=== PATIENT | female | born 1985 | race Caucasian/White ===

== ENCOUNTER 2018-08-03 19:05 | Inpatient (IN) | payer BC, SELFPAY ==
--- NOTE | 2018-08-03 19:48 | HP.PCM_ITS ---
- Problem List (1) Polyhydramnios affecting in third trimester Status: Acute (2) LGA (large for gestational age) fetus Status: Acute History Date of Admission: 08/03/18 Final MOY: 08/10/18 Final MOY Source: LMP Gestational age: 39 Weeks and 0 Days History of this : This is a 33 year-old, G 1P0 at 39 weeks gestation presents to [facility] for induction of labor due to polyhydramnios. Today patient reports no vaginal bleeding no leaking of fluid she reports good movement. Patient has been monitored in the office with NSTs. Patient has had no complications thus far. And failed her 1 hour GCT she attempted to complete her 3-hour gtt. however began vomiting. Patient checked her blood sugars for approximately 1 week following that and were all in the normal range. Smoking Status: Never smoker Alcohol: None Number of Fetus(es): 1 Heart Tracins mod sandra, No accels at this time, no decels TOCO Analysis: Q2-4min- pt does not feel any contractions History Past Pregnancies: Past Pregnancies Delivery Date Name GA/Weeks Outcome Route Weight Gender Labor Length Anesthesia Delivery Location Provider FOB Labs: HIV neg, HEPB neg, Rub imm, syphilis neg, O+, GBS neg Expected Infant Delivery Method: Spontaneous Vaginal Review of Systems Constitutional: Denies: Anorexia Gastrointestinal: Denies: Abdominal Pain Physical Exam General: Alert, Oriented x3 Abdomen: Soft, Non Tender, Non-Distended, Gravid Neurological: Cranial nerves II-XII grossly intact UNIVERSITY PROFESSOR: Normal external genitalia Estimated gestational size: Large for gestational age Presentation: Cephalic Cervix Dilation (cm): 4 Station: -3 Effacement (%): 70 Assessment/Plan All Active Problems Polyhydramnios affecting in third trimester (Acute) LGA (large for gestational age) fetus (Acute) This is a 33 year-old, G 1P0 at 39 weeks gestation with polyhydramnios and LGA. Patient here for induction of labor. admit To labor and delivery Monitor heart rate and toco We will start Pitocin for labor induction May have an epidural or nitrous oxide for pain management if requested LGA reviewed with the patient will not use vacuum or other form of operative delivery Indications for section briefly reviewed with the patient at this time we will allow for induction of labor cervix is favorable
[2018-08-03] MEDS: Lactated Ringers 1,000 ML 50 ML IV ×2 (19:53→23:09)
[2018-08-03 20:12] LABS: Absolute Lymphocyte Count 1.76 X10^3/ul (0.83-4.51); Absolute Neutrophil Count 7.4 X10^3/uL (2.0-7.7); Basophil# 0.01 X10^3/uL; Basophil% 0.1 % (0-1); Eosinophil# 0.16 X10^3/uL; Eosinophils% 1.5 % (0-5); Hematocrit 37.8 % (37-47); Hemoglobin 12.6 g/dl (12.0-15.0); Lymphocyte # 1.76 X10^3/ul (4.0); Lymphocyte % 16.7 % (19-41); Mean Corp Hgb Conc 33.3 g/gl (32-36); Mean Corpuscular Volume 92.9 fL (81-99); Mean Platelet Vol. 11.5 fl (6.2-12.0); Monocyte# 1.13 X10^3/uL; Monocyte% 10.7 % (0-10); Neutrophil # 7.44 X10^3/uL (2.7-7.7); Neutrophil % 70.8 % (47-70); POSITIVE COUNT NO; POSITIVE DIFFERENTIAL NO; POSITIVE MORPHOLOGY NO; Platelet Count 149 K/mm3 (150-450); RBC Distribution Width SD 47.4 fl (35.1-43.9); Red Blood Count 4.07 M/mm3 (4.2-5.4); White Blood Count 10.5 K/mm3 (4.4-11.0)
[2018-08-03 20:14] VITALS: BMI 36.2
[2018-08-03] MEDS: Oxytocin 30 units/NS 500 ml 30 UNITS/500 ML IV.SOLN IV (20:42)
[2018-08-03] MEDS: fentaNYL-bupivacaine (epidural) 100 ML BAG EPIDURAL (23:37)
[2018-08-04] MEDS: Lactated Ringers 1,000 ML 50 ML IV ×5 (02:23→22:05)
[2018-08-04] MEDS: fentaNYL-bupivacaine (epidural) 100 ML BAG EPIDURAL ×3 (05:07→21:27)
--- NOTE | 2018-08-04 09:20 | PCM.PN.BLA ---
Progress Note Pt seen at bedside, resting comfortably with epidural in place. VE: /-3, AROM performed LARGE amount clear fluid- head now at -2. IUPC and IFM placed. Will continue pitocin at this time. Monitor FHR/TOCO.
[2018-08-04] MEDS: Ondansetron 4 MG/2 ML Vial IV (10:34)
--- NOTE | 2018-08-04 20:04 | PCM.PN.BLA ---
Progress Note Seen at bedside, pushing with contractions. Vaginal exam performed head is a 0 to +1 station OP position noted. Attempted rotation unsuccessful. Patient was counseled on position and pushing efforts. We will give the patient approximately 2 hours to demonstrate progress with pushing and station and if unsuccessful unchanged station will proceed with a primary section. I explained again to the patient that I am not a proponent of an operative delivery as I am anticipating this is an LGA fetus.
--- NOTE | 2018-08-04 20:55 | PCM.PN.BLA ---
Progress Note seen at bedside- pt was in hand and knees position- now in supine- reexamined- head now +2 station, good maternal effort, fetus in OA position.
[2018-08-04] MEDS: Oxytocin 30 units/NS 500 ml 30 UNITS/500 ML IV.SOLN 334 UNITS IV (23:31)
--- NOTE | 2018-08-04 23:53 | PCM.OPRPT ---
Problem List (1) Polyhydramnios affecting in third trimester Status: Acute (2) LGA (large for gestational age) fetus Status: Acute Vaginal Delivery Maternal Presentation: Medically Indicated Induction Method of Induction: Pitocin, Amniotomy Medical Reason for Induction: - - polyhydramnios Amniotic Membrane Rupture Type: Artificial Amniotic Fluid Description: Clear Final MOY: 08/10/18 Gestational age: 39 Weeks and 1 Days Date of Procedure: 08/04/18 Pre-Operative Diagnosis: Polyhydramnios, term gestation Post-Operative Diagnosis: same, live male Surgery/ Procedure Performed: Vacuum Assisted Vaginal Delivery Type of Anesthesia: Epidural Description of Procedure: Patient pushing well however maternal exhaustion. head at +4 station patient was counseled previously on operative vaginal delivery however at this point with the head at +4 station and maternal exhaustion we reviewed primary versus vacuum attempt. Patient was counseled on all the risks of a vacuum versus a primary section. At this point the patient and decided for vacuum application due to maternal exhaustion. Vacuum was applied and gentle downward traction was placed along with good maternal pushing efforts. Infant was delivered with 2 contractions and 2 pulls. There were no pop offs. RML was cut to expedite delivery. Vacuum was removed when the head was delivered with good maternal pushing efforts the anterior shoulder was delivered without difficulty followed by the rest of the 's body. The infant was placed on the maternal chest Cord was clamped and cut and then the was taken to the warmer for evaluation by certified corporate travel executive. Gases were obtained Presentation: Vertex, JACOBO Placental Delivery Description: Spontaneous Placenta Disposition: Routine to Lab Cord Vessel Description: 3 Vessels Cord Entanglement: None Drain: Wilson to straight drain Estimated Blood Loss: 400 A gender: Male (1 minute): 8 (5 minute): 9 Episiotomy Description: Perineal Extension/lac, 2nd degree Laceration: None Medications given after delivery: IV Pitocin Complications: None
--- NOTE | 2018-08-05 | PLAC_PTH ---
PATIENT: BRYAN LAN LOC: [facility] U#:[id number] AGE/SX: 33/F ROOM: [facility] RE08/03/[address]: Dr. Marisabel Kelly, MDDOB: 1985 BED: 1 DIS: 08/06/2018 SPEC #: [id number] RECD: 08/05/18 10:49 STATUS: ARPIT TITUS #: [id number] YUNIOR: 08/05/18 00:[address]: Marisabel Kelly DEPT: SURGICAL PATHOLOGY RECD BY: Peña Bustillos ENTERED: 08/05/18 10:49 SP TYPE: PLACENTA OTHR DR: MD Dr. Sophie Powell, DO Tissues: Placenta, NOS Procedures: Surgery Specimen Level V HEADER OPERATION: Vaginal delivery PRE-OP DIAGNOSIS: Induction TISSUE SUBMITTED: Placenta MICROSCOPIC DIAGNOSIS Billingsley placenta (598 gm): Umbilical cord - trivsacular with no inflammation. Placental membranes - minimal acute decidual inflammation. Placental disc - mild Shree-Jeet change and mild intervillous congestion. AM:noa 08/07/18 MICROSCOPIC DESCRIPTION Slides are reviewed. GROSS DESCRIPTION SPECIMEN: PLACENTA / CLINICAL INFORMATION: A. Weight: 3.999 kg B. Gestational Age: 39 weeks C. Sex: Male PLACENTAL WEIGHT (POST FIXATION): 598 gm PLACENTAL DIMENSIONS: 17 x 16 x 3 cm PLACENTAL SHAPE: Usual ovoid PLACENTAL WEIGHT FOR GESTATIONAL AGE: Over 99th percentile MEMBRANES - Present A. Insertion: Marginal B. Site of rupture from edge: 6.8 cm from edge of placental disc C. Color of membrane: Cartwright-maher D. Abnormalities: None UMBILICAL CORD - Present A. Color: Cartwright-maher B. Insertion: Eccentric C. Length: 38 cm D. Diameter: 1.2 cm E. Number of vessels: Three F. Abnormalities: None PLACENTAL DISC - Present A. Color of surface: Cartwright-maher B. surface abnormalities: None C. Maternal cotyledons: Intact with minimal tears D. Attached retro placental clot: No clot E. Cut surface: Dark red and spongy F. Lesions: None G. Separate clot: Absent SECTIONS SUBMITTED: 1. Umbilical cord ( end inked) 2. Membrane roll 3. Placental disc, and maternal surfaces 4. Placental disc, and maternal surfaces 5. Placental disc, and maternal surfaces AM:noa 08/06/18 TC:2 CPT: 72175
[2018-08-05] MEDS: Oxytocin 30 units/NS 500 ml 30 UNITS/500 ML IV.SOLN 167 UNITS IV (00:01)
[2018-08-05] MEDS: Ibuprofen 600 MG Tablet PO ×4 (01:57→21:46)
[2018-08-05 04:07] VITALS: BP 117/55; PULSE 83; RESP 18; TEMP 36.8; O2SAT 97
[2018-08-05] MEDS: Acetaminophen 500 MG Tablet 1000 MG PO (04:19)
[2018-08-05] MEDS: oxyCODONE 5 MG Tablet PO ×4 (05:13→19:40)
--- NOTE | 2018-08-05 07:35 | NURSING ---
This RN observed minimal interaction between FOB and baby this shift. fob presents as very anxious and needing much direction. FOB asking many repetitive questions which did not pertain to situation at hand, FOB giving pt limited support this shift ex: laying on couch/on cell phone/reluctant to assist mother upon RN direction MOB also anxious this shift. needing much encouragement/reassurance. pt repetitively asking same questions. stated i am going to need someone to help me get over this delivery, it was really rough on me. emotional support given to pt. aware of pts heightened anxiety and SSC ordered
[2018-08-05 08:00] VITALS: BP 106/55; PULSE 69; RESP 16; TEMP 36.1
[2018-08-05] MEDS: Senna/Docusate Sodium 1 Tablet PO ×2 (09:11→21:46)
--- NOTE | 2018-08-05 11:30 | NURSING ---
Patient and are pleasant; they ask many questions and often don't seem to listen to the answer; they ask the same questions over and over. questions answered patiently and emotional support given.
[2018-08-05 12:00] VITALS: BP 101/59; PULSE 78; RESP 16; TEMP 36.1
--- NOTE | 2018-08-05 12:05 | PCM.PN.OB ---
Patient Problems: Active and Suspected Problems Polyhydramnios affecting in third trimester (Acute) LGA (large for gestational age) fetus (Acute) Subjective: Doing well per patient and nursing staff. Baby in special care nursery due to low blood sugar. Ambulating and taking PO without difficulty. Pumping breastmilk. Lochia rubra, no large clots or increased flow. Denies headache, visual changes, chest pain, or SOB. Planning D/C home tomorrow. - Physical Exam General: Alert, Oriented x3, Cooperative HEENT: Atraumatic, Normocephalic Neck: Trachea Midline Lungs: Clear to auscultation, Normal air movement, No rhonchi, No wheeze Cardiovascular: Regular rate, Regular Rhythm, No murmurs Abdomen: Bowel Sounds Present, Non Tender, - - Fundus firm 3 below U Extremities: Edema - +1 pitting BLE. Sariah's negative Psych/Mental Status: Normal Affect, Appropriate Vital Signs Temp Pulse Resp BP Pulse Ox 97 F L 69 16 106/55 L 97 08/05/18 08:00 08/05/18 08:00 08/05/18 08:00 08/05/18 08:00 08/05/18 04:07 Oxygen Delivery Method Room Air Weight: 238 lb 5.115 oz Body Mass Index (BMI) 36.2 Intake and Output for Last 24 Hours 08/03/18 08/04/18 08/05/18 23:59 23:59 23:59 Intake Total 9214 / 9214 Output Total 4000 / 4000 1500 / 1500 Balance 5214 / 5214 -1500 / -1500 Medical Necessity - Tobacco Use Smoking Status: Never smoker Assessment/Plan All Active Problems Polyhydramnios affecting in third trimester (Acute) LGA (large for gestational age) fetus (Acute) A: PPD #1 , vaccum assisted P: 1) Routine PP care. 2) /pumping instructions given. to see patient. 3) Planning D/C home tomorrow or to hotel status if baby is still in special care.
--- NOTE | 2018-08-05 15:00 | CASEMGMT ---
Social Work Labor and Delivery Unit Date of Referral:?08/05/2018 Time of Referral:?[id number] Date of Intervention:?08/05/2018 Time of Intervention:?1500 ? Referred by:?Dr. Kelly ? Reason for Referral:?maternal history of anxiety and depression; thoughts of harming self in past; sees a therapist ? PSYCHOSOCIAL HISTORY: ? ?History obtained from:?Medical records, patient/mother of baby (MOB) Sasha Rachel. ?Father of baby (FOB) Everardo Rachel present for conversation though in and out to sleep. ??This tag writer as the professor of social work for the delivery labor and delivery unit at [employer] also provides social work to the [facility] for continuity of care of families on the [facility]. Educated MOB to this dual role* ? Household composition:?MOB and FOB live in their own home they bought 1-2 years ago.? Patient's parent/guardian status:?MOB is 33 years old female, to CHEIKHB who is 32. ?? for 6 years. ? MOB denied any abuse or safety concerns during nursing admission assessment. No indications of abuse during this assessment. Baby boy Nikos is the first child for both parents. ? Medical History:?MOB is G1, P0 to 1 after delivery of infant. ?? care good and started at 7 weeks gestation. ??Medical record indicates MOB with history of Fibromyalgia. ??Delivery of Nikos was vacuum assisted and baby large for gestational age at 8 pounds 13 ounces. ?Apgars 8 and 9 at 1 and 5 minutes of life. ? ?Educational Status:??MOB reports to have a bachelors degree in music education from [employer] and then a bachelors degree in K-3 intervention from [employer]. ??AMERICO is able to read, write, and to understand what is read. ? ? Health Care Coverage:?[employer] through MAYNOR's employer.? 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 ?FOB works at [employer] in [place]. ? ? Childcare/Caregiver(s):?MOB and FOB. ?When MOB returns to work from maternity leave MOB parents will come to the home to watch the baby. ? ? Transportation:?No issues, both parents drive.? ? Programs/Agencies Involved:?No agency involvement such as WIC or JFS. ?MOB and FOB agree to a Help Me Grow referral. ?MOB has been in counseling during this , going weekly to help address depression and anxiety present during this . ?MOB sees Karina Hatfield. ?? ? Behavioral Health Issues:?Mental Health:??MOB reports history of depression and anxiety. ?Chart indicates diagnoses in 2007, with treatment with medication, though off of medication since November 2017. ?Chart indicates MOB has history of suicidal ideation in the past, and at 20 week visit increase of anxiety with some thoughts of hurting self but that would not do so as would not want to hurt the baby. ??MOB has been involved with therapist during this to help manage symptoms and mitigate anxiety. ??Substance Use:??MOB and FOB deny any substance use or abuse history. ?Drug Screens: ?Maternal drug screen negative on 12.28.2017. ???Family History:??FOB endorses history of ADD with issue primarily being distraction issues. ??Chart indicates MOB's grandfather has some type of emotional health issues. ? ? Family Stressors:?MOB endorses much stress from work environment with change in some management and then unannounced internal audit. 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 ?MOB indicates this was all happening around the 2nd trimester when MOB's hormones from were really taking off, so the hormonal change did not help things either. ??MOB endorses stress from MOB's [id number] who MOB describes as likely having a personality disorder, not respecting boundaries and limits that MOB and FOB have set relating to the baby. ??MOB endorses stress from the delivery, that was in labor for a long time, was very tired and then the baby had to be delivered with assist from vacuum assist. ??MOB does report to be grateful the baby is born, alive and healthy. ?? ? Support Systems:?FOB is identified as main support, as long with MOB's parents and a good friend name Clara. ?FOB will be off work for 2 weeks to help with transition home. ? ? Assessment Met with MOB and FOB in room, and both cooperative with social work visit. ?FOB was on couch and fell asleep for part of conversation but woke up near the end. ?FOB participated in conversation in the form of asking this tag writer questions such as about pediatric follow up options for baby, or if [facility] can recommend the best type of baby welsh to use. ?When FOB participating in conversation, the conversation would become circumstantial though easily redirected. ???MOB able to stay focused on topic at hand, held good eye contact, mood and affect appropriate and congruent to content. ?MOB admits to stressors, reports has been working hard this to address thinking patterns that impact emotional responses and anxiety. ?MOB reports preference to continue with counseling in the period rather than medication. ??Educated MOB that both counseling and medications are first lines of defense for mood and anxiety disorders, that some women use just one intervention, but that sometimes both interventions are helpful. ?MOB reports best coping skill is to use reframing skills and also uses deep breathing techniques. MOB reports to have needed baby supplies, is planning to breast feed baby but also reports to be accepting to use formula should breast feeding not work out. ??MOB reports to have adequate support as well from family. ?? This tag writer did administer the [place] Depression Sale to MOB as this screen has several questions focusing on anxiety, which seems to be a prominent issue for MOB and of which the PHQ9 does not necessarily capture. Score is an 11, with score of 10 or higher being indicative of depression symptoms present. ?MOB stated hardly ever regarding thoughts of hurting self in the last 1 week. Will need to follow up with MOB further on responses made on the depression screen. MOB was future oriented during social work assessment, focused on healing from delivery, and getting breast milk to come in for the care of the baby. ? Plan Plan to follow and assist family as needed during hospital stay. Plan to follow up with family with some community resources for home going Follow up conversation regarding depression screening done with MOB [facility] referral closer to time of discharge. Response to Plan: MOB?does express understanding of proposed plan. -LUTHER Michele, SUPERVISOR WATER TREATMENT PLANT
[2018-08-05 15:34] VITALS: BP 103/70; RESP 16; TEMP 36.1
--- NOTE | 2018-08-05 15:48 | NURSING ---
Received bedside shift report on patient from Renee Delcid RN. I will assume care of patient at this time.
[2018-08-05 19:44] VITALS: BP 91/67; PULSE 77; RESP 16; TEMP 36.3
[2018-08-06 01:50] VITALS: RESP 18
[2018-08-06 03:13] VITALS: BP 121/57; PULSE 80; RESP 18; TEMP 36.7; O2SAT 97
[2018-08-06] MEDS: oxyCODONE 5 MG Tablet PO ×3 (03:22→16:54)
[2018-08-06] MEDS: Dibucaine 30 GM Tube 1 APPLIC TOPICAL (03:41)
[2018-08-06] MEDS: Ibuprofen 600 MG Tablet PO ×2 (03:46→12:22)
[2018-08-06 09:00] VITALS: BP 119/52; PULSE 89; RESP 16; TEMP 36.2
[2018-08-06] MEDS: Acetaminophen 500 MG Tablet 1000 MG PO (09:03)
[2018-08-06] MEDS: Senna/Docusate Sodium 1 Tablet PO (09:03)
[2018-08-06 14:10] VITALS: BP 113/57; PULSE 85; RESP 16; TEMP 36.1
--- NOTE | 2018-08-06 14:10 | PCM.PN.OB ---
Patient Problems: Active and Suspected Problems Polyhydramnios affecting in third trimester (Acute) LGA (large for gestational age) fetus (Acute) Subjective: patient complaining of significant pain in her pelvic area. It's controlled with NSAIDs, Tylenol and oxycodone and ice packs. average lochia. has not had a bowel movement yet. - Physical Exam General: Alert, Cooperative, No apparent distress Vital Signs Temp Pulse Resp BP Pulse Ox 97.1 F L 89 16 119/52 L 97 08/06/18 09:00 08/06/18 09:00 08/06/18 09:00 08/06/18 09:00 08/06/18 03:13 Oxygen Delivery Method Room Air Weight: 108.1 kg Body Mass Index (BMI) 36.2 Intake and Output for Last 24 Hours 08/04/18 08/05/18 08/06/18 23:59 23:59 23:59 Intake Total 9214 / 9214 Output Total 4000 / 4000 1500 / 1500 Balance 5214 / 5214 -1500 / -1500 Medical Necessity - Tobacco Use Smoking Status: Never smoker Assessment/Plan All Active Problems Polyhydramnios affecting in third trimester (Acute) LGA (large for gestational age) fetus (Acute) day #2 status post vacuum-assisted vaginal delivery. Patient still having quite a bit of perineal pain. Discussed with her and recommend she is discharged home on stool softeners. Will give prescription for pain medication. Patient is working on breast-feeding and infant remained in special care nursery. Patient is going to decide whether she like to remain inpatient versus be discharged to hotel status.
--- NOTE | 2018-08-06 14:23 | CASEMGMT ---
Social Work Labor and Delivery Unit Had planned to follow up with patient today but each time this rfp writer planned on doing do the patient was working on feeding baby and doing skin to skin in the SCN. This rfp writer observed the patient and father of baby with many questions for the SCN RN when feeding was being worked on and this rfp writer thought it best to allow the family time to focus on feeding, rather than to try and focus on two important topics at once. Plan: meet with patient/mother of baby on 08-07-2018 for follow up discussion on community resources and [place] Depression scale. -LUTHER Michele, ELECTROSLAG WELDING MACHINE OPERATOR
--- NOTE | 2018-08-06 16:44 | DCINST_ITS ---
Discharge Diet: No Restrictions Discharge Activity: Return to Normal Activity, May not drive while taking narcotic pain medications., May Shower May resume sexual activity in: 4-6 weeks Additional Activity Instructions:: Nothing in the vagina for 4-6 weeks. You may return to work/school in 6 weeks. Call your doctor if your incision/area has: Continuous Slow Oozing, Sudden Increased Bleeding, Increased Pain/ Swelling, Increased Redness, Foul Smelling Discharge Additional Instructions: If you experience any of the following, contact your healthcare provider. * Bleeding that soaks a pad every hour for 2 hours * Fever 100.4 or higher * Unrelieved incision or abdominal pain * Swelling, redness, discharge or bleeding from your incision or episiotomy site * Your incision begins to separate * Problems urinating (including inability to urinate or burning while urinating). * Visual changes * Severe headache * Flu-like symptoms * Pain or redness in one of both of your breasts * Pain, warmth, tenderness or swelling in your legs, especially the calf area * Frequent nausea and vomiting * Symptoms of depression or anxiety If you experience any of the following, call 911 or go to the nearest Emergency Room. * Chest pain * Problems breathing * Seizure activity * Partial or complete paralysis of a body part, slurred speech, weakness or drooping of the face, or a sudden inability to walk or hold your balance Allergies/Adverse Reactions: Allergies grass pollen Allergy (Verified 08/03/18 20:16) Other SNEEZING mold Allergy (Verified 08/03/18 20:16) Other SNEEZING CATS Allergy (Uncoded 08/03/18 20:16) Other WATERY EYES CONGESTION Medications to take at Discharge Docosahexanoic Acid [ Dha] 1 PO DAILY 08/03/18 Docusate Sodium [Colace] 100 mg PO BID PRN PRN #60 cap 08/06/18 Ibuprofen [Motrin] 600 mg PO Q6H PRN #60 tab 08/06/18 Oxycodone [Oxyir] 5 mg PO Q4H PRN PRN 5 Days #15 tab 08/06/18 The following prescriptions were given: Docusate Sodium [Colace] 100 mg PO BID PRN PRN #60 cap PRN Reason: Constipation Transmission Status: Sent to [facility] Ibuprofen [Motrin] 600 mg PO Q6H PRN #60 tab PRN Reason: Pain Transmission Status: Sent to [facility] Oxycodone [Oxyir] 5 mg PO Q4H PRN PRN 5 Days #15 tab PRN Reason: severe pain Transmission Status: Pending to [facility] Please Follow Up With: Marisabel Kelly MD - [phone] When: 1-2 and 6 weeks or as needed Primary Care Physician: Flor Grimm MD [Primary Care Provider] - Test Results: Test results from this visit will be discussed in further detail at your follow- up appointment, if applicable.
[2018-08-09 13:32] LABS: Pathology Specimen OB SEE PATHOLOGY REPORT
--- NOTE | 2018-08-15 18:27 | NURSING ---
Mother doing well. Was in for consult August 13. Baby gaining weight and nursing well. [facility]
== END 2018-08-06 18:30 | disposition home or self-care (01) | DRG 807 ==
PROVIDERS: Admitting Provider Obstetrics & Gynecology; Family Provider Internal Medicine; PCP Internal Medicine; Referring Provider Obstetrics & Gynecology; Visit Provider Obstetrics & Gynecology
DX: O40.3XX0 Polyhydramnios, third trimester, not applicable or unspecified (principal); Z37.0 Single live birth; O70.1 Second degree perineal laceration during delivery; Z3A.39 39 weeks gestation of pregnancy
CPT/HCPCS: 59025; 59050; 85025; 86850; 86900; 88307; 99218; J7120; G0378; J2405

== ENCOUNTER → 2019-01-30 16:15 | Outpatient (CLI) | payer BC, SELFPAY ==
--- NOTE | 2019-01-30 16:15 | MRI_ITS ---
STUDY: MRI LUMBAR SPINE WITHOUT CONTRAST REASON FOR EXAM: Female, 34 years old. low pain back -- pain low back,left leg and severe pain tailbone since vaginal 6 months ago TECHNIQUE: Standardized fat and water weighted pulse sequences were obtained in the sagittal and axial planes. COMPARISON: None FINDINGS: T12-L1: Normal endplates. Normal disc height, hydration and morphology. Normal bilateral facet joints. Normal central canal and bilateral lateral recesses. Normal bilateral intervertebral neural foramina. Normal lumbar lordosis. There is no substantial scoliosis. Normal conus medullaris that terminates at the L1/L2 L1-2: There is minimal disc space narrowing and endplate spondylosis. . There is a mild disc bulge and posterior annular fissure without significant central canal or foraminal stenosis L2-3: Normal endplates. Normal disc height, hydration and morphology. Normal bilateral facet joints. Normal central canal and bilateral lateral recesses. Normal bilateral intervertebral neural foramina. L3-4: Normal endplates. Normal disc height, hydration and morphology. Normal bilateral facet joints. Normal central canal and bilateral lateral recesses. Normal bilateral intervertebral neural foramina. L4-5: Normal endplates. Normal disc height, hydration and morphology. Normal bilateral facet joints. Normal central canal and bilateral lateral recesses. Normal bilateral intervertebral neural foramina. L5-S1: Normal endplates. Normal disc height, hydration and morphology. Normal bilateral facet joints. Normal central canal and bilateral lateral recesses. Normal bilateral intervertebral neural foramina. Normal visualized sacral ala. Normal visualized paraspinous soft tissue structures. MRI/Spine Lumbar (Routine) IMPRESSION: At L1/L2: Mild disc bulge and posterior annular fissure. Electronically Signed: Piper Reid MD at 12:01 EST Tel , Service support ,
== END ==
PROVIDERS: Family Provider Internal Medicine; PCP Internal Medicine; Referring Provider Chiropractor; Visit Provider Chiropractor
DX: M99.03 Segmental and somatic dysfunction of lumbar region (principal); M99.02 Segmental and somatic dysfunction of thoracic region; M99.04 Segmental and somatic dysfunction of sacral region
CPT/HCPCS: 72148

== ENCOUNTER → 2019-07-01 13:45 | Outpatient (CLI) | payer BC, SELFPAY ==
[2019-07-04 16:08] LABS: Age Gdln ACOG Testing 30-65 (.)
[2019-07-04 19:08] LABS: HPV APTIMA, High Risk Negative (Negative); HPV Reflexed? YES, CHARGE PATIENT
== END ==
PROVIDERS: PCP Internal Medicine; Referring Provider Obstetrics & Gynecology; Visit Provider Obstetrics & Gynecology
DX: Z12.4 Encounter for screening for malignant neoplasm of cervix (principal)
CPT/HCPCS: 87624; 88175; G0145

== ENCOUNTER → 2019-07-11 | Outpatient (CLI) | payer BC, SELFPAY ==
--- NOTE | 2019-07-11 09:22 | US_ITS ---
STUDY: ULTRASOUND BREAST - RIGHT REASON FOR EXAM: Female, 34 years old. Right axillary pain. TECHNIQUE: Axial and longitudinal images of the RIGHT breast were performed with a high resolution ultrasound transducer. # OF IMAGES: 19 COMPARISON: Comparison is made with prior mammogram done earlier today. FINDINGS: RIGHT Breast: The axillary region was examined by ultrasound. There is dense fibroglandular tissue. No sonographic abnormality is seen. US/Breast Limited Unilateral IMPRESSION: No sonographic abnormality is seen. ASSESSMENT CATEGORY: BIRADS Category 1: Negative. A letter regarding these results will be sent to the patient by the facility within 30 days. Electronically Signed: Jacques Abdalla, at 10:36 EDT , Service support ,
--- NOTE | 2019-07-11 09:22 | BI_ITS ---
MAMMOGRAPHY - BILATERAL DIAGNOSTIC REASON FOR EXAM: Female, 34 years old. Bilateral axillary tenderness. PERTINENT HISTORY: Non-contributory. TECHNIQUE: Digital bilateral breast yvan (3D mammographic acquisition) in the CC and MLO projections. 2-D mediolateral oblique (MLO) and craniocaudad (CC) views of both breasts were obtained. CAD: Full Field Digital Mammography with Computer Added Detection was performed. COMPARISON: None. Baseline examination. FINDINGS: Breast Composition: The breasts are extremely dense, which lowers the sensitivity of mammography. There are no dominant masses or suspicious calcifications. No other significant abnormalities are identified. BI/DIAG MAMM W/CAD, BILAT IMPRESSION: Negative diagnostic mammogram. With the patient''s history of bilateral axillary tenderness, correlation with ultrasound is recommended. ASSESSMENT CATEGORY: BIRADS Category 0: Incomplete. Need additional imaging evaluation. A letter regarding these results will be sent to the patient by the facility within 30 days. Approximately 10% of breast cancers are not detected by mammography. A normal mammogram should not delay biopsy of a clinically suspicious abnormality. Electronically Signed: Jacques Abdalla, at 10:25 EDT , Service support ,
== END | disposition home or self-care (01) ==
PROVIDERS: PCP Internal Medicine; Referring Provider Obstetrics & Gynecology; Visit Provider Obstetrics & Gynecology
DX: N63.31 Unspecified lump in axillary tail of the right breast (principal)
CPT/HCPCS: 76642; 77062; 77066; G0279

== ENCOUNTER 2019-09-18 07:04 | Day surgery (SDC) | payer BC, SELFPAY ==
--- NOTE | 2019-08-26 17:30 | HP.PCM_ITS ---
History and Physical Date of Admission: 09/18/19 HPI: The patient is a 34 year old female presenting for pre-operative visit. She is scheduled for?Hysteroscopy D&C?with polyp resection, for?abnormal uterine bleeding and uterine polyps on?09/18/2019. ??Procedure discussed along with risks, benefits and complications. ?Other alternatives discussed for management. Consent form signed??Yes.? PAST MEDICAL HISTORY PAST MEDICAL HISTORY Diagnosis Date ? Abnormal Pap smear of cervix 2004 ? Allergic rhinitis due to other allergen ? ? Depressive disorder, not elsewhere classified ? ? Fibromyalgia ? ? Food poisoning 2014 ? Irritable bowel syndrome ? ? Myalgia and myositis, unspecified ? ? Other chronic sinusitis ? ? ? PAST SURGICAL HISTORY PAST SURGICAL HISTORY Procedure Laterality Date ? REMOVE TONSILS/ADENOIDS,12+ Y/O ? 1996 ? ? w CURRENT MEDICATIONS Current Outpatient Medications Medication Sig Dispense Refill ? ibuprofen (MOTRIN) 200 mg tablet Take 2 tablets by mouth every 6 hours as needed. ? ? ? sertraline (ZOLOFT) 50 mg tablet Take 1 tablet by mouth once daily. 30 tablet 11 ? norgestimate 0.25 mg-ethinyl estradiol 35 mcg (SPRINTEC) 0.25-35 mg-mcg per tablet Take 1 tablet by mouth once daily. 3 Package 3 ? Dnxwlgdg-Ph-Oil-Fe-FA ( VITAMIN) tab Take 1 tablet by mouth. ? ? ? acetaminophen(TYLENOL 325 MG TAB) Take two(2) tablets every four(4) to six(6) hours as needed for pain. ? 0 ? No current facility-administered medications for this visit.? ? ALLERGIES:?Patient has no known allergies. ? PERSONAL HISTORY:? SOCIAL HISTORY Social History ? Tobacco Use ? Smoking status: Never Smoker ? Smokeless tobacco: Never Used Substance Use Topics ? Alcohol use: Yes ? ? Comment: Occasionally, but not while ? Drug use: No ? FAMILY HISTORY:? FAMILY HISTORY FAMILY HISTORY Problem Relation Age of Onset ? Breast Cancer Mother ? ? other (hypercholesterolemia) Mother ?diet controlled ? Parkinson?s Disease Father ? ? Prostate Cancer Father ? ? No Known Problems Sister ? ? Heart Maternal Grandmother ? ? Psychiatry Maternal Grandfather ? ? Hypertension Paternal Grandmother ? ? Heart Paternal Grandmother ? ? Heart Paternal Grandfather ? ? REVIEW OF SYMPTOMS: GENERAL: denies fevers or chills ENDOCRINOLOGY: has not been on steroids Cardiology : denies palpitations or chest pain Respiratory: denies SOB or cough Hematology: denies history of prolonged bleeding or easy bruising or VTE Allergy: Denies history of personal or family history of allergy to anesthesia ? ? PHYSICAL EXAMINATION: ? VITALS:?Last menstrual period 07/19/2019, not currently . ? GENERAL:??The patient is well nourished, well hydrated in no acute distress. ?, The patient is oriented to time, place, and person. NECK:?Supple. No lynphadenopathy, normal thyroid, no thyromegaly. LUNGS:?Clear to auscultation bilaterally. no wheezes, rhonchi or rales HEART:?Regular rate and rhythm, Normal heart sounds and No murmurs or gallops ? ? IMPRESSION:?endometrial polyps on ultrasound, abnormal uterine bleeding ? PLAN:???The risks/benefits/alternatives and personal involved for the planned?hysteroscopy D&C with polyp resection?were reviewed with the patient. Her questions were answered to her satisfaction and she desires to proceed. ?Consent was signed. ?I reviewed with her postop instructions and expectations. ? ? I have reviewed and updated past medical and surgical history, medications and allergies? This H&P was completed in my office on 08/26/2019. Procedure Criteria Procedure Type: Elective COVID Risk Discussion: The surgeon/proceduralist and patient have discussed in detail the risk of exposure to and/or potential harm posed by the COVID-19 virus with having a surgery/procedure at this time versus the risk of delaying the surgery/procedure. It is not possible to know either the risk of delaying the surgery or procedure or chance of getting an infection with perfect accuracy, but a joint decision was made between the patient and the surgeon/proceduralist to proceed at this time with the scheduled surgery/procedure as indicated on the consent form.
[2019-09-18] VITALS (8 sets, daily range): BP systolic 108–119; BP diastolic 74–82; PULSE 59–76; RESP 16; TEMP 36.1; O2SAT 96–100; BMI 35.2
--- NOTE | 2019-09-18 | EMB_PTH ---
PATIENT: BRYAN LAN LOC: [facility] [place] U#:[id number] AGE/SX: 34/F ROOM: RE09/18/[address]: Dr. Gabriella Nicole MD : [id number] BED: DIS: 09/18/2019 SPEC #: [id number] RECD: 09/18/19 10:36 STATUS: ARPIT REQ #: [id number] YUNIOR: 09/18/19 00:[address]: Gabriella Nicole DEPT: SURGICAL PATHOLOGY RECD BY: Peña Bustillos ENTERED: 09/18/19 10:36 SP TYPE: ENDOM BX/C OTHR DR: Dr. Flor Grimm MD Tissues: Endometrium, NOS Procedures: Surgery Specimen Level IV HEADER OPERATION: Hysteroscopy, D & C Symphion PRE-OP DIAGNOSIS: Endometrial polyps, abnormal uterine bleeding TISSUE SUBMITTED: Endometrial curettings MICROSCOPIC DIAGNOSIS Endometrial curettings: Dyssynchronous endometrium consisting of proliferative endometrium with focal cystic changes and mixed with focal area of secretory endometrium. Fragments of myometrium. RANDI:noa 09/19/19 MICROSCOPIC DESCRIPTION Slides are reviewed. GROSS DESCRIPTION Received in fixative is one container labeled with the patient's name and designated endometrial curettings. The specimen consists of multiple fragments of hemorrhagic soft tissue that in aggregate measure 3 x 2.5 x 0.3 cm. The specimen is totally submitted in one cassette. / RANDI:noa 09/18/19 TC:5 CPT: 22534
[2019-09-18 07:37] LABS: Internal QC Validated? YES +Cl - CLEAR BKGD; Pregnancy, Urine Negative Negative
[2019-09-18] MEDS: Lactated Ringers 1,000 ML 100 ML IV (07:37)
--- NOTE | 2019-09-18 08:49 | DCINST_ITS ---
Discharge Diet: No Restrictions Discharge Activity: Return to Normal Activity, May Shower, May Take a Tub Bath - in 2 weeks. Call your doctor if your incision/area has: Continuous Slow Oozing, Foul Smelling Discharge Call your doctor if you observe: Fever of 101 or Higher, Using more than one pad per hour, Uncontrolled pain Additional Instructions: Take ibuprofen 600 mg every 6 hours as needed for pain. You may alternate this with acetaminophen 1000 mg every 6 hours as needed for pain. You may use a heating pad as needed. Allergies/Adverse Reactions: Allergies grass pollen Allergy (Verified 09/18/19 07:22) Other SNEEZING mold Allergy (Verified 09/18/19 07:22) Other SNEEZING CATS Allergy (Uncoded 09/18/19 07:22) Other WATERY EYES CONGESTION Medications to take at Discharge prenat.vits,jose,ksp-agdc-aqfbj 1 tab PO DAILY 09/16/18 Norgestimate-Ethinyl Estradiol [Sprintec 28 Day Tablet] 1 ea PO DAILY 09/11/19 Sertraline HCl [Zoloft] 50 mg PO DAILY 09/11/19 Primary Care Physician: Flor Grmim MD [Primary Care Provider] - Test Results: Test results from this visit will be discussed in further detail at your follow- up appointment, if applicable. Please Follow Up With: Gabriella Nicole MD - [phone] When: as needed
--- NOTE | 2019-09-18 09:17 | PCM.OPRPT ---
Report of Operation Date of Procedure: 09/18/19 Pre-Operative Diagnosis: AUB, endometrial polyp Post-Operative Diagnosis: AUB, thickened endometrium Surgery/Procedure Performed:: hysteroscopy D&C with Symphion device Description of Surgical Findings:: thickened endometrium, normal tubal ostia bilaterally puppy walker: None Type of Anesthesia:: MAC/Supplemental/Local Special Medications: none Specimen's removed: endometrial curettings Drains: none Estimated Blood Loss (mL): 20 Fluids Replaced: 700 Description of Procedure: The patient was taken to the OR where she was prepped and draped in dorsal lithotomy position. The weighted speculum was placed in the vagina and the anterior lip of the cervix was grasped with a single-tooth tenaculum. A paracervical block was administered with [1% lidocaine with 1-100,000 epinephrine solution]. The cervix was dilated serially with Hegar dilators. The Sympohion hysteroscope was placed into the uterine cavity and the above findings were noted. Bilateral tubal ostia [were] identified. The hysteroscope was removed. The Symphion was readied and inserted. A visual D&C was done of the entire endometrial cavity. The instruments were removed from the vagina. The specimen was handed off and sent to pathology. All sponge and needle counts were correct. Vaginal sweep was performed by me. The patient was awakened and taken to the recovery room in stable condition. Hysteroscopic fluid deficit was 1200 cc calculated
== END 2019-09-18 10:38 | disposition home or self-care (01) ==
LOC: SDC 07:04 → AC 07:06
PROVIDERS: Anesthesiology; PCP Internal Medicine; Referring Provider Obstetrics & Gynecology; Visit Provider Obstetrics & Gynecology
PROC: 0UB98ZZ Excision of Uterus, Via Natural or Artificial Opening Endoscopic (ICD-10-PCS; CPT 58558; principal; 2019-09-18 08:30)
DX: N93.9 Abnormal uterine and vaginal bleeding, unspecified (principal); R93.89 Abnormal findings on diagnostic imaging of other specified body structures; F32.9 Major depressive disorder, single episode, unspecified; F41.9 Anxiety disorder, unspecified; Z79.899 Other long term (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 therapy; Z11.59 Encounter for screening for other viral diseases
CPT/HCPCS: 58558; 81025; 87635; 88305; 94799; J7120; J2405; U0003

== ENCOUNTER 2021-03-27 13:24 | Emergency (ER) | payer BC, SELFPAY ==
[2021-03-27 13:26] VITALS: BP 92/50; PULSE 78; RESP 18; TEMP 36.7; O2SAT 99; BMI 34.9
[2021-03-27] MEDS: 0.9% Normal Saline 1,000 ML 999 ML IV (13:48)
[2021-03-27] MEDS: Ondansetron 4 MG/2 ML Vial IV ×2 (13:48→15:30)
[2021-03-27 14:03] LABS: Absolute Lymphocyte Count 0.86 X10^3/uL (0.83-4.51); Absolute Neutrophil Count 16.1 X10^3/uL (2.0-7.7); Basophil# 0.03 X10^3/uL; Basophil% 0.2 % (0-1); Eosinophil# 0.14 X10^3/uL; Eosinophils% 0.8 % (0-5); Hematocrit 44.7 % (37-47); Hemoglobin 14.7 g/dL (12.0-15.0); Lymphocyte # 0.86 X10^3/ul (0.83-4.51); Lymphocyte % 4.7 % (19-41); Mean Corp Hgb Conc 32.9 g/dL (32-36); Mean Corpuscular Volume 91.2 fL (81-99); Mean Platelet Vol. 10.4 fl (6.2-12.0); Monocyte# 1.01 X10^3/uL; Monocyte% 5.6 % (0-10); NRBC Flagged by Analyzer 0 % (0-5); Neutrophil # 16.06 X10^3/uL (2.7-7.7); Neutrophil % 88.2 % (47-70); Platelet Count 297 K/mm3 (150-450); RBC Distribution Width CV 14.2 % (11.6-14.6); RBC Distribution Width SD 48.1 fl (35.1-43.9); White Blood Count 18.2 K/mm3 (4.4-11.0)
[2021-03-27 14:14] LABS: Anion Gap 6 (5-15); BUN 26 mg/dL (7-18); BUN/Creat Ratio 30.7 RATIO (10-20); Calcium,Total 8.7 mg/dL (8.5-10.1); Chloride 111 mmol/L (98-107); Creatinine, Serum 0.85 mg/dL (0.55-1.02); EST Glomerular Filtration Rate 81 mL/min (>60); Est Glom Filt Rate - Afr Amer 98 mL/min (>60); Glucose 119 mg/dL (74-106); Potassium 4.9 mmol/L (3.5-5.1); Sodium Level 138 mmol/L (136-145)
[2021-03-27 14:16] LABS: Internal QC Validated? YES +Cl - CLEAR BKGD; Pregnancy, Serum, hCG Quali. NEGATIVE Negative
--- NOTE | 2021-03-27 15:08 | CT_ITS ---
STUDY: CT ABDOMEN AND PELVIS WITH CONTRAST REASON FOR EXAM: Female, 36 years old. Diarrhea abdominal pain and elevated white count RADIATION DOSAGE (If Supplied By Facility): CTDIvol = ( 14.12 ) mGy, DLP = ( 1159.37 ) mGycm TECHNIQUE: CT images were obtained from the dome of the diaphragm to the symphysis pubis without oral contrast. Oral and amp; IV Gastrografin and amp; 100mL Isovue-370 was administered. Sagittal and coronal images were reconstructed. Individualized dose optimization techniques were used for this CT. COMPARISON: None. FINDINGS: The visualized lung bases are unremarkable. The visualized portions of the heart are within normal limits. Normal liver. Normal gallbladder and extrahepatic biliary system. Normal spleen. Normal pancreas. Normal bilateral adrenal glands. Normal right kidney. Normal left kidney. Normal visualized stomach. Normal small intestine. Normal colon. The appendix is visualized and appears normal. Normal abdominal aorta. Normal inferior vena cava. Normal retroperitoneum. Normal urinary bladder. Normal abdominal wall. There is diastases recti around the umbilicus without narrow opening hernia. Normal osseous structures. CT/Abdomen/Pelvis WITH Contrast IMPRESSION: Normal enhanced CT of the abdomen and pelvis. Electronically Signed: Cristian Cuello MD at 18:32 EST ,
[2021-03-27] MEDS: Morphine 4 MG/ML Syringe IV (15:30)
[2021-03-27] MEDS: 0.9% Normal Saline 1,000 ML 1000 ML IV (15:30)
[2021-03-27 16:02] VITALS: BP 138/74; PULSE 84; RESP 18; O2SAT 99
--- NOTE | 2021-03-27 16:17 | EX.ED.GENINJ ---
HPI History of Present Illness Chief Complaint: Nausea/Vomiting/Diarrhea Informant: patient and spouse/S.O. Narrative Narrative: Patient is a 36-year-old female with remote history of food poisoning in 2015 and 2015 by Streptococcus presenting with abdominal pain, vomiting and diarrhea. Her 2-year-old son had similar symptoms but he is better. Today patient developed profuse vomiting and diarrhea. She states she had simultaneous vomiting diarrhea for about 4 hours earlier this morning. She is continued to vomit and be incontinent of stool. She states she hurts everywhere even hurts to open my eyes. She continues to have vomiting in triage. She denies any blood in her vomit or her stool. Denies any history of C. difficile or any recent antibiotics. Patient denies any fever but does report chills. She rates myalgias. No cough or pressure symptoms. No other complaints at this time. No history of any abdominal surgeries. [facility] Medical History (Updated 03/27/21 @ 20:[address] Vivi Aviles DO) Anxiety Gave to child recently Home Medications norgestimate-ethinyl estradiol 1 ea PO DAILY 09/11/19 [History Last Taken Unknown] sertraline 50 mg PO DAILY 09/11/19 [History Last Taken Unknown] ondansetron 4 mg PO Q6H PRN #14 tab 03/27/21 [Rx Last Taken Unknown] Allergy/AdvReac Type Severity Reaction Status Date / Time grass pollen Allergy Other Verified 09/18/19 07:22 mold Allergy Other Verified 09/18/19 07:22 CATS Allergy Other Uncoded 09/18/19 07:22 Family History Other Breast cancer Hypertension Surgical History History of tonsillectomy Social History Smoking Status: Never smoker alcohol intake: never substance use type: does not use what type of physical activity do you participate in: walking frequency: 1-2 times per week ROS ROS ED Constitutional Constitutional ED: Reports chills and sweats; Denies fever(s) Eyes Eyes: Denies blurry vision or change in vision ENT ENT ED: Denies ear pain Cardiovascular Cardiovascular: Denies chest pain Respiratory/Chest Respiratory/Chest: Denies cough or dyspnea Gastrointestinal Gastrointestinal: Reports abdominal pain, diarrhea, nausea and vomiting; Denies melena Genitourinary Genitourinary ED: Denies dysuria or hematuria Musculoskeletal Musculoskeletal: Reports myalgias; Denies arthralgias, back pain or neck pain Integumentary Denies rash Neurologic Neurologic: Denies headache(s), paresthesias or weakness Psychiatric Psychiatric: Reports anxiety; Denies depression EXAM Physical Exam Const Vital Signs: 03/27/21 13:26 03/27/21 16:02 03/27/21 18:27 Temperature 98.0 F Temperature Source Temporal Pulse Rate 78 84 87 Respiratory Rate 18 18 16 Blood Pressure 92/50 L 138/74 H 130/79 H Blood Pressure Mean 64 95 96 Pulse Ox 99 99 98 Oxygen Delivery Method Room Air Room Air 03/27/21 20:59 03/27/21 21:00 Temperature Temperature Source Pulse Rate Respiratory Rate 15 15 Blood Pressure 113/67 113/67 Blood Pressure Mean 82 Pulse Ox Oxygen Delivery Method Positive well nourished and well developed General Appearance ED: well developed HEENT HEENT Narrative: Moist mucosal membranes atraumatic; Negative for trauma Eyes PERRL and EOMs intact bilaterally Chest Wall inspection of chest normal Resp normal respiratory effort and clear to auscultation bilaterally Cardio regular rhythm and no murmurs Rate: regular rate GI normal to inspection, nondistended, normoactive bowel sounds and non-distended Palpation: soft and tender other (Diffuse, worse in the epigastric region); Negative for guarding or rebound tenderness present Back/Spine normal to inspection Extremity normal to inspection and full ROM General Extremety ED: Negative for edema or tenderness General Extremity: Negative for edema Neuro oriented x3 and moves all extremities Sensorium / Orientation: alert Psych mental status grossly normal Skin no rashes or lesions noted and no wounds MDM MDM MDM Narrative Medical decision making narrative: Patient is evaluated for 1 day of vomiting and diarrhea. She had her son is had similar symptoms at home. Patient is having diffuse pain but most severe in her abdomen. Patient peers nontoxic and in no acute distress. She has mild tenderness of her abdomen diffusely. Protocol orders placed per nursing staff. She does have a mild leukocytosis of 18.2. Because of that a CT of the abdomen pelvis is obtained to look for further acute causes of abdominal pain such as colitis, diverticulitis, pancreatitis, small bowel obstruction or other surgical pathology. This is negative. She is given IV fluids and Zofran. On repeat evaluation she is feeling better but continues to have nausea. She is given a second dose of Zofran. She is able to tolerate the p.o. contrast not any vomiting. She is not having diarrhea while in the emergency room. She is also given 1 dose of morphine and Pepcid. Patient is given p.o. challenge after her CT results came back normal. She is given a dose of Compazine before this. Patient tolerates this. She be discharged home with prescription for Zofran. She is counseled that likely this is viral given that her son is also the same symptoms but earlier in the week. Counseled on return precautions as well as hygiene recommendations to prevent further spread. Patient verbalizes agreement understand this plan. Patient discharged home in improved and stable condition. Lab Data Attestation: I reviewed the patient's lab results. Labs: Laboratory Results - last 24 hr 03/27/21 03/27/21 03/27/21 13:53 13:53 13:53 WBC 18.2 H RBC 4.90 Hgb 14.7 Hct 44.7 MCV 91.2 MCH 30.0 MCHC 32.9 RDW Std Deviation 48.1 H RDW Coeff of Fallon 14.2 Plt Count 297 MPV 10.4 Immature Gran % (Auto) 0.500 Neut % (Auto) 88.2 H Lymph % (Auto) 4.7 L [place] % (Auto) 5.6 Eos % (Auto) 0.8 Baso % (Auto) 0.2 Absolute Neuts (auto) 16.1 H Absolute Lymphs (auto) 0.86 Nucleated RBC % 0 Sodium 138 Potassium 4.9 Chloride 111 H Carbon Dioxide 21.0 Anion Gap 6 BUN 26 H Creatinine 0.85 Estim Creat Clear Calc 92.30 Est GFR (MDRD) Af Amer 98 Est GFR (MDRD) Non-Af 81 BUN/Creatinine Ratio 30.7 H Glucose 119 H Calcium 8.7 Serum , Qual NEGATIVE Radiography Diagnostic Testing: Clinical Impression(s) from Imaging Studies Abdomen/Pelvis CT 03/27/21 15:08 IMPRESSION: Normal enhanced CT of the abdomen and pelvis. Electronically Signed: Cristian Cuello MD at 18:32 EST , Discharge Plan Triage Chief Complaint: Nausea/Vomiting/Diarrhea ED Provider: Vivi Aviles Dx/Rx/DC Orders Clinical Impression: Abdominal pain, vomiting, and diarrhea, Leukocytosis Instructions: ED Food Poison Or Gastroenteritis, ED Vomiting and Diarrhea ... Prescriptions: New ondansetron 4 mg tablet,disintegrating 4 mg PO Q6H PRN (Reason: nausea and vomiting) Qty: 14 RF: 0 No Action norgestimate-ethinyl estradiol 1 EACH tablet 1 ea PO DAILY RF: 0 sertraline 50 MG tablet 50 mg PO DAILY RF: 0 Primary Care Provider: Flor Grimm Referrals: Flor Grimm MD [Primary Care Provider] - Activity Restrictions/Additional Instructions: Drink lots of fluids. Take frequent small sips. The ijng-frq-mqjgzal Pepto-Bismol and Pepcid might be beneficial for your abdominal pain and diarrhea. Disposition Disposition: Home, Self Care Discharge Date/Time: 03/27/21 21:51
[2021-03-27] MEDS: Famotidine 200 MG/20 ML MDV 20 MG in 0.9% Normal Saline (Pres. free 8 ML 300 MG IV (16:40)
[2021-03-27 18:27] VITALS: BP 130/79; PULSE 87; RESP 16; O2SAT 98
[2021-03-27] MEDS: proCHLORPERazine 10 MG/2 ML Vial 5 MG IV (20:20)
[2021-03-27 20:59] VITALS: BP 113/67; RESP 15
[2021-03-27 21:00] VITALS: BP 113/67; RESP 15
== END 2021-03-27 21:51 | disposition home or self-care (01) ==
PROVIDERS: Emergency Provider Emergency Medicine; PCP Internal Medicine; Visit Provider Emergency Medicine
DX: R11.2 Nausea with vomiting, unspecified (principal); R19.7 Diarrhea, unspecified; R10.84 Generalized abdominal pain; R15.9 Full incontinence of feces; D72.829 Elevated white blood cell count, unspecified; F41.9 Anxiety disorder, unspecified; Z79.899 Other long term (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 therapy
CPT/HCPCS: 74177; 80048; 84703; 85025; 96361; 96365; 96375; 96376; 99285; J7030; Q9967; A4216; J2405; J3490

== ENCOUNTER 2023-01-21 16:23 | Emergency (ER) | payer BC, SELFPAY ==
[2023-01-21 16:26] VITALS: BP 104/86; PULSE 92; RESP 18; TEMP 36.6; O2SAT 100; BMI 37.8
[2023-01-21 19:14] VITALS: BP 104/86; PULSE 92; RESP 18; TEMP 36.6; O2SAT 100
[2023-01-21] MEDS: Ondansetron ODT 4 MG Tablet PO (20:23)
[2023-01-21] MEDS: Famotidine 20 MG Tablet PO (20:23)
[2023-01-21 21:00] VITALS: BP 111/43; PULSE 101; RESP 18; O2SAT 98
--- NOTE | 2023-01-21 21:22 | EDS_ITS ---
HPI HPI - GI History of Present Illness Chief Complaint: Nausea/Vomiting/Diarrhea Narrative Narrative: 37-year-old female presenting with nausea/vomiting/diarrhea. Patient states started with nausea and has progressed to diarrhea. She had a couple episodes of diarrhea today. Patient states that she just had an episode in the bed prior to me entering the room. She states she is unable to get up and ambulate to the bathroom prior to this happening. No recent antibiotics. No fever at home. Patient has some crampy abdominal pain but nothing severe. No urinary or vaginal complaints. She states that her son has had similar symptoms at home. He was not tested for anything. His symptoms did improve. [facility] Medical History Anxiety Fibromyalgia Gave to child recently Home Medications norgestimate 0.25 mg-ethinyl estradiol 35 mcg tablet 1 ea PO DAILY 09/11/19 [History Last Taken Unknown] sertraline 50 mg tablet 50 mg PO DAILY 09/11/19 [History Last Taken Unknown] ondansetron 4 mg disintegrating tablet 4 mg PO Q6H PRN nausea and vomiting #14 tabs 03/27/21 [Rx Last Taken Unknown] ondansetron 4 mg disintegrating tablet 4 mg PO Q8H PRN PRN Nausea #14 tabs 01/21/23 [Rx Last Taken Unknown] Allergy/AdvReac Type Severity Reaction Status Date / Time cat dander [cats] Allergy WATERY Verified 01/21/23 16:25 EYES, CONGESTION grass pollen Allergy Other Verified 01/21/23 16:25 mold Allergy Other Verified 01/21/23 16:25 Family History Other Breast cancer Hypertension Surgical History History of tonsillectomy Social History Smoking Status: Never smoker alcohol intake: never substance use type: does not use what type of physical activity do you participate in: walking frequency: 1-2 times per week ROS ROS ED Constitutional Constitutional ED: Denies chills ENT ENT ED: Denies rhinorrhea or sore throat Cardiovascular Cardiovascular: Denies chest pain or palpitations Respiratory/Chest Respiratory/Chest: Denies cough or dyspnea Gastrointestinal Gastrointestinal: Reports diarrhea, nausea and vomiting Genitourinary Genitourinary ED: Denies dysuria or hematuria Musculoskeletal Musculoskeletal: Denies arthralgias or back pain Integumentary Denies abscess Neurologic Neurologic: Denies headache(s) or paresthesias Psychiatric Psychiatric: Denies anxiety or depression Endocrine Endocrinology: Denies polydipsia or polyphagia EXAM Physical Exam Const Vital Signs: 01/21/23 16:26 01/21/23 19:14 01/21/23 21:00 Temperature 97.9 F 97.9 F Temperature Source Temporal Oral Pulse Rate 92 92 101 H Respiratory Rate 18 18 18 Blood Pressure 104/86 H 104/86 H 111/43 L Blood Pressure Mean 92 92 65 Pulse Ox 100 100 98 Oxygen Delivery Method Room Air Room Air Room Air 01/21/23 21:45 Temperature Temperature Source Pulse Rate 100 Respiratory Rate 14 Blood Pressure 111/43 L Blood Pressure Mean 65 Pulse Ox 100 Oxygen Delivery Method Positive well nourished General Appearance ED: NAD HEENT Reports moist mucous membranes normocephalic and atraumatic Eyes PERRL and EOMs intact bilaterally Resp normal respiratory effort Auscultation: Negative for rales, rhonchi or wheezes Cardio regular rate and regular rhythm GI non-tender and non-distended Neuro CN's II-XII intact bilaterally Sensorium / Orientation: alert Motor Exam: strength 5/5 throughout Psych mental status grossly normal and thought process normal Skin no wounds MDM MDM MDM Narrative Medical decision making narrative: Patient presenting with nausea, vomiting, diarrhea. She states nausea is actually improved and the diarrhea is still present. Differential includes viral syndrome, food poisoning. Patient states her son had something similar recently so is most likely viral. After examining the patient her examination is benign. Her vital signs are stable and she is afebrile. Patient offered Zofran at this did not help her nausea then we would establish an IV and do some lab work and retreat her. She was given Zofran on reevaluation she feels much better. She is able to eat crackers and drink water and she feels that she can go home at this point. Since she is doing better I will send her home on Zofran. Return precautions were discussed. Impression: 1. Nausea/vomiting 2. Diarrhea Discharge Plan Triage Chief Complaint: Nausea/Vomiting/Diarrhea ED Provider: Elliott Hebert Dx/Rx/DC Orders Instructions: ED Gastroenteritis, Viral (Adult) Prescriptions: New ondansetron 4 mg tablet,disintegrating 4 mg PO Q8H PRN PRN (Reason: Nausea) Qty: 14 0RF No Action norgestimate-ethinyl estradiol 1 EACH tablet 1 ea PO DAILY sertraline 50 MG tablet 50 mg PO DAILY ondansetron 4 mg tablet,disintegrating 4 mg PO Q6H PRN (Reason: nausea and vomiting) Qty: 14 0RF Primary Care Provider: Flor Grimm Referrals: Flor Grimm MD [Primary Care Provider] - Disposition Disposition: Home, Self Care Discharge Date/Time: 01/21/23 22:03
[2023-01-21 21:45] VITALS: BP 111/43; PULSE 100; RESP 14; O2SAT 100
== END 2023-01-21 22:03 | disposition home or self-care (01) ==
PROVIDERS: Emergency Provider Student in an Organized Health Care Education/Training Program; PCP Internal Medicine; Visit Provider Student in an Organized Health Care Education/Training Program
DX: R11.2 Nausea with vomiting, unspecified (principal); R19.7 Diarrhea, unspecified; Z79.3 Long term (current) use of hormonal contraceptives; F41.9 Anxiety disorder, unspecified; Z79.899 Other long term (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 therapy
CPT/HCPCS: 87428; 99284

== ENCOUNTER 2023-02-08 07:51 | Outpatient (RCR) | payer BC, SELFPAY | END 2023-03-07 23:59 | LOC: NS 07:51 | PROVIDERS: PCP Internal Medicine; Referring Provider Nurse Practitioner Family; Visit Provider Nurse Practitioner Family | DX: Z71.3 Dietary counseling and surveillance (principal); F32.A Depression, unspecified; E66.9 Obesity, unspecified; Z68.39 Body mass index [BMI] 39.0-39.9, adult; E78.5 Hyperlipidemia, unspecified; F41.9 Anxiety disorder, unspecified; E55.9 Vitamin D deficiency, unspecified | CPT/HCPCS: 97802 ==

== ENCOUNTER 2023-03-26 15:51 | Outpatient (RCR) | payer BC, SELFPAY | END 2023-04-05 23:59 | LOC: NS 15:51 | PROVIDERS: PCP Internal Medicine; Referring Provider Nurse Practitioner Family; Visit Provider Nurse Practitioner Family | DX: Z71.3 Dietary counseling and surveillance (principal); E66.9 Obesity, unspecified; Z68.39 Body mass index [BMI] 39.0-39.9, adult; F32.A Depression, unspecified; F41.9 Anxiety disorder, unspecified; E55.9 Vitamin D deficiency, unspecified; E78.5 Hyperlipidemia, unspecified | CPT/HCPCS: 97803 ==

== ENCOUNTER 2023-04-30 15:54 | Outpatient (RCR) | payer BC, SELFPAY | END 2023-05-06 23:59 | LOC: NS 15:54 | PROVIDERS: PCP Internal Medicine; Referring Provider Nurse Practitioner Family; Visit Provider Nurse Practitioner Family | DX: Z71.3 Dietary counseling and surveillance (principal); E66.9 Obesity, unspecified; Z68.39 Body mass index [BMI] 39.0-39.9, adult; F32.A Depression, unspecified; F41.9 Anxiety disorder, unspecified; E55.9 Vitamin D deficiency, unspecified; E78.5 Hyperlipidemia, unspecified ==

== ENCOUNTER 2023-05-28 16:23 | Outpatient (RCR) | payer BC, SELFPAY | END 2023-06-05 23:59 | LOC: NS 16:23 | PROVIDERS: PCP Internal Medicine; Referring Provider Nurse Practitioner Family; Visit Provider Nurse Practitioner Family | DX: Z71.3 Dietary counseling and surveillance (principal); E66.9 Obesity, unspecified; Z68.39 Body mass index [BMI] 39.0-39.9, adult; F32.A Depression, unspecified; F41.9 Anxiety disorder, unspecified; E55.9 Vitamin D deficiency, unspecified; E78.5 Hyperlipidemia, unspecified | CPT/HCPCS: 97803 ==

== ENCOUNTER 2023-07-30 16:00 | Outpatient (RCR) | payer BC, SELFPAY | END 2023-08-05 23:59 | LOC: NS 16:00 | PROVIDERS: PCP Internal Medicine; Referring Provider Nurse Practitioner Family; Visit Provider Nurse Practitioner Family | DX: Z71.3 Dietary counseling and surveillance (principal); E66.9 Obesity, unspecified; Z68.39 Body mass index [BMI] 39.0-39.9, adult; F32.A Depression, unspecified; F41.9 Anxiety disorder, unspecified; E55.9 Vitamin D deficiency, unspecified; E78.5 Hyperlipidemia, unspecified | CPT/HCPCS: 97803 ==

== ENCOUNTER 2023-09-11 16:34 | Outpatient (RCR) | payer BC, SELFPAY | END 2023-10-06 23:59 | LOC: NS 16:34 | PROVIDERS: PCP Internal Medicine; Referring Provider Nurse Practitioner Family; Visit Provider Nurse Practitioner Family | DX: Z71.3 Dietary counseling and surveillance (principal); E66.9 Obesity, unspecified; Z68.39 Body mass index [BMI] 39.0-39.9, adult; F32.A Depression, unspecified; F41.9 Anxiety disorder, unspecified; E55.9 Vitamin D deficiency, unspecified; E78.5 Hyperlipidemia, unspecified | CPT/HCPCS: 97803 ==

== ENCOUNTER 2023-10-16 13:53 | Outpatient (RCR) | payer BC, SELFPAY | END 2023-11-05 23:59 | LOC: NS 13:53 | PROVIDERS: PCP Internal Medicine; Referring Provider Nurse Practitioner Family; Visit Provider Nurse Practitioner Family | DX: Z71.3 Dietary counseling and surveillance (principal); E66.9 Obesity, unspecified; Z68.39 Body mass index [BMI] 39.0-39.9, adult; F32.A Depression, unspecified; F41.9 Anxiety disorder, unspecified; E55.9 Vitamin D deficiency, unspecified; E78.5 Hyperlipidemia, unspecified ==

== ENCOUNTER 2024-05-16 01:20 | Emergency (ER) | payer BC, SELFPAY ==
[2024-05-16 01:21] VITALS: BP 144/88; PULSE 88; RESP 16; TEMP 36.8; O2SAT 99; BMI 39.9
--- NOTE | 2024-05-16 01:40 | EDS_ITS ---
HPI HPI - Female History of Present Illness Chief Complaint: Vag Bleeding Informant: patient Narrative Narrative: Patient is a 39-year-old female who states for the past 4 to 5 months her menstrual cycle has been abnormal. She states that she saw her SALES TECHNICIAN secondary to this and was placed back on control medication and attempt to stabilize her hormone levels. She states she has been taking this as directed but there has been no improvement of symptoms. She states she had a normal cycle roughly 7 to 10 days ago. She states that this ran his normal course and stopped but then over the last few days she has had return of vaginal bleeding with passage of large clots. She denies any vaginal discharge or concern for STD. She denies any history of bleeding disorder or blood thinner use. She states that there has been no lightheadedness with position change or syncope. However because of the persistent bleeding she presents for evaluation. [facility] Medical History Fibromyalgia Gave to child recently Anxiety Home Medications ?Medication ?Instructions ?Recorded ?Last Taken ?Type norgestimate 0.25 mg-ethinyl 1 ea PO DAILY 09/11/19 Un known History estradiol 35 mcg tablet sertraline 50 mg tablet 50 mg PO DAILY 09/11/19 Unkn own History ondansetron 4 mg disintegrating 4 mg PO Q6H PRN nausea and 03/27/21 Unknown Rx tablet vomiting #14 tabs hydroxyzine HCl 10 mg tablet 10 - 20 mg PO TID PRN PRN anxiety 05/16/24 Unknown History Allergy/AdvReac Type Severity Reaction Status Date / Time cat dander (cats) Allergy WATERY Verified 05/16/24 01:25 EYES, CONGESTION grass pollen Allergy Other Verified 05/16/24 01:25 mold Allergy Other Verified 05/16/24 01:25 Family History Other Breast cancer Hypertension Surgical History History of tonsillectomy Social History Smoking Status: Never smoker alcohol intake: never substance use type: does not use what type of physical activity do you participate in: walking frequency: 1-2 times per week ROS ROS ED Constitutional Constitutional ED: Denies chills or fever(s) Eyes Eyes: Denies blurry vision or change in vision ENT ENT ED: Denies sore throat Cardiovascular Cardiovascular: Reports other Details: Negative syncope ; Denies chest pain, palpitations or racing heartbeat Respiratory/Chest Respiratory/Chest: Denies cough or dyspnea Gastrointestinal Gastrointestinal: Reports abdominal pain; Denies diarrhea, nausea or vomiting Genitourinary Genitourinary ED: Reports hematuria and other Details: Positive vaginal bleeding ; Denies dysuria Musculoskeletal Musculoskeletal: Denies myalgias Integumentary Denies rash Neurologic Neurologic: Denies headache(s) or weakness Psychiatric Psychiatric: Reports anxiety Hematologic/Lymphatic Hematologic/Lymphatic: Denies easy bleeding or easy bruising EXAM Physical Exam Const Vital Signs: 05/16/24 01:21 05/16/24 03:20 Temperature 98.3 F 98.3 F Temperature Source Temporal Pulse Rate 88 55 L Respiratory Rate 16 18 Blood Pressure 144/88 H 130/80 H Blood Pressure Mean 106 96 Pulse Ox 99 98 Oxygen Delivery Method Room Air Positive well nourished, well developed and obese General Appearance ED: well developed; Negative for pallor Nutritional Appearance: obese HEENT HEENT Narrative: Normocephalic atraumatic Eyes PERRL and EOMs intact bilaterally General Eye ED: Negative for pale conjunctiva or scleral icterus Neck supple Resp normal respiratory effort and clear to auscultation bilaterally Cardio regular rate and regular rhythm Rate: other Other Details: Heart is regular rate and rhythm without murmurs rubs or gallop Radial and carotid pulses are equal and symmetric GI soft to palpation, non-distended and no masses GI Narrative: Abdomen is soft and nondistended with normal active bowel sounds. There is mild diffuse pain on palpation without voluntary guarding or rigidity or pulsatile mass. No organomegaly noted. Auscultation: normoactive bowel sounds Palpation: soft Narrative: There are clots present at the vaginal opening. The speculum exam reveals multiple clots within the vaginal vault. Once these were removed there is approximate half a shot glass full of dark red blood present. This blood was removed with large Q-tips and afterwards there is a mild ooze of blood from the cervical os which is closed but no significant bleeding filling the vaginal vault. Extremity normal to inspection and full ROM Neuro oriented x3, CN's II-XII intact bilaterally and no sensory deficits noted Sensorium / Orientation: alert Motor Exam: strength 5/5 throughout Psych Mood & Affect: anxious Skin no rashes or lesions noted Skin Narrative: Capillary refills less than 3 seconds General Skin Exam: Negative for jaundice or pallor MDM MDM MDM Narrative Medical decision making narrative: Patient arrived to the ER with stable vitals and reported history of dysfunctional uterine bleeding despite hormone therapy however in the last 24 hours she has had passage of more blood and clot. There is concern for acute blood loss anemia versus thrombocytopenia versus complication. Secondary to his basic labs were obtained which revealed a hemoglobin of 11.7 but this is well above the value of 7 that is required for blood transfusion. Also no signs of thrombocytopenia or elevated bleeding time. Patient is not either going against a complication. After patient had clots evacuated the amount of bleeding within the vaginal vault is minimal. I did discuss the case with SALES TECHNICIAN on-call Dr. Love. She agrees that patient is safe for outpatient follow-up and states that she can be seen in office today and therefore there is no need to provide a outpatient transvaginal ultrasound order or start her on medication. The patient was informed of this plan of care and as her vitals remained stable and there is no need for transfusion she is otherwise safe for discharge History & Record Review Discussion w/independent historian: Patient Lab Data Attestation: I reviewed the patient's lab results. Labs: Laboratory Results - last 24 hr 05/16/24 01:55 WBC 8.6 RBC 3.91 L Hgb 11.7 L Hct 36.0 L MCV 92.1 MCH 29.9 MCHC 32.5 RDW Std Deviation 48.0 H RDW Coeff of Fallon 14.1 Plt Count 236 MPV 10.2 Immature Gran % (Auto) 0.200 Neut % (Auto) 48.7 Lymph % (Auto) 38.3 Travis % (Auto) 10.2 H Eos % (Auto) 2.4 Baso % (Auto) 0.2 Absolute Neuts (auto) 4.2 Absolute Lymphs (auto) 3.31 Nucleated RBC % 0 Differential Comment SCANNED PT 12.9 INR 1.0 APTT 27.8 Sodium 138 Potassium 4.1 Chloride 106 Carbon Dioxide 21.5 Anion Gap 10 BUN 20 H Creatinine 0.79 Estim Creat Clear Calc 129.71 Est GFR (MDRD) Non-Af 98 BUN/Creatinine Ratio 25.5 H Glucose 88 Calcium 8.7 Serum , Qual NEGATIVE Discharge Plan Triage Chief Complaint: Vag Bleeding ED Provider: Stanley Norris Dx/Rx/DC Orders Clinical Impression: DUB (dysfunctional uterine bleeding), Anxiety, Fibromyalgia Instructions: ED Dysfunctional Uterine Bleeding Prescriptions: No Action norgestimate-ethinyl estradiol 1 EACH tablet 1 ea PO DAILY sertraline 50 MG tablet 50 mg PO DAILY ondansetron 4 mg tablet,disintegrating 4 mg PO Q6H PRN (Reason: nausea and vomiting) Qty: 14 0RF hydroxyzine HCl 10 mg tablet 10 - 20 mg PO TID PRN PRN (Reason: anxiety) Primary Care Provider: Flor Grimm Referrals: Enma Love MD [Med Staff - Active Staff] - (Dysfunctional uterine bleeding) Flor Grimm MD [Primary Care Provider] - Activity Restrictions/Additional Instructions: Please call if the SALES TECHNICIAN office this morning and they will schedule you for an inpatient evaluation later today. They also will most likely start you on medication to help reduce the amount of bleeding and perform/order an ultrasound if needed. Return to the ER should you have any further concerns Print Language: Kinyarwanda Disposition Disposition: Home, Self Care Discharge Date/Time: 05/16/24 03:24
[2024-05-16] MEDS: 0.9% Normal Saline (1000mL) 1,000 ML 999 ML IV (01:57)
[2024-05-16] MEDS: Ondansetron 4 MG/2 ML Vial IV (01:58)
[2024-05-16] MEDS: Morphine 4 MG/ML Syringe IV (01:58)
[2024-05-16 02:04] LABS: Absolute Lymphocyte Count 3.31 X10^3/uL (0.83-4.51); Absolute Neutrophil Count 4.2 X10^3/uL (2.0-7.7); Basophil# 0.02 X10^3/uL; Basophil% 0.2 % (0-1); Eosinophil# 0.21 X10^3/uL; Eosinophils% 2.4 % (0-5); Hemoglobin 11.7 g/dL (12.0-15.0); Lymphocyte # 3.31 X10^3/ul (0.83-4.51); Lymphocyte % 38.3 % (19-41); Mean Corp Hgb Conc 32.5 g/dL (32-36); Mean Corpuscular Hgb 29.9 pg (27.0-32.0); Mean Corpuscular Volume 92.1 fL (81-99); Mean Platelet Vol. 10.2 fl (6.2-12.0); Monocyte# 0.88 X10^3/uL; Monocyte% 10.2 % (0-10); NRBC Flagged by Analyzer 0 % (0-5); Neutrophil % 48.7 % (47-70); POSITIVE MORPHOLOGY YES; Platelet Count 236 K/mm3 (150-450); RBC Distribution Width CV 14.1 % (11.6-14.6); Red Blood Count 3.91 M/mm3 (4.2-5.4); White Blood Count 8.6 K/mm3 (4.4-11.0)
[2024-05-16 02:12] LABS: Differential Indicated SCAN CRITERIA MET
[2024-05-16 02:17] LABS: Prothrombin Time (Protime)PT. 12.9 SECONDS (11.7-14.9)
[2024-05-16 02:18] LABS: Partial Thromboplast Time 27.8 Seconds (24.1-36.2)
[2024-05-16 02:34] LABS: Anion Gap 10 (5-15); BUN 20 mg/dL (4-19); BUN/Creat Ratio 25.5 RATIO (10-20); Calcium,Total 8.7 mg/dL (7.6-11.0); Carbon Dioxide 21.5 mmol/L (21.0-32.0); Chloride 106 mmol/L (98-108); Creatinine, Serum 0.79 mg/dL (0.70-1.20); EST Glomerular Filtration Rate 98 (>60); Estimated Creatinine Clearance 129.71 ml/min (50-250); Glucose 88 mg/dL (70-99); Potassium 4.1 mmol/L (3.3-5.1); Sodium Level 138 mmol/L (133-145)
[2024-05-16 02:57] LABS: Internal QC Validated? YES +Cl - CLEAR BKGD; Pregnancy, Serum, hCG Quali. NEGATIVE Negative
[2024-05-16 03:11] LABS: Differential Comment SCANNED
[2024-05-16 03:20] VITALS: BP 130/80; PULSE 55; RESP 18; TEMP 36.8; O2SAT 98
== END 2024-05-16 03:24 | disposition home or self-care (01) ==
PROVIDERS: Emergency Provider Emergency Medicine; PCP Internal Medicine; Visit Provider Emergency Medicine
DX: N93.8 Other specified abnormal uterine and vaginal bleeding (principal); F41.9 Anxiety disorder, unspecified; M79.7 Fibromyalgia; R31.9 Hematuria, unspecified; E66.9 Obesity, unspecified
CPT/HCPCS: 80048; 84703; 85025; 85610; 85730; 96361; 96374; 96375; 99283; J2405

== ENCOUNTER 2024-05-23 05:39 | Day surgery (SDC) | payer BC, SELFPAY ==
--- NOTE | 2024-05-22 12:14 | PCM.HP.BLA ---
History and Physical Date of Admission: 05/23/24 Expand All Collapse All Pre-Op History and Physical HPI: The patient is a 39 year old female presenting for discussion of AUB/polyp and surgical mgmt. pre-operative visit. She is scheduled for hysteroscopy, D&C, polypectomy with symphion and insertion of liletta IUD for AUB, polyp on 05/23/24. Procedure discussed along with risks, benefits and complications. Other alternatives discussed for management. Consent form signed? Yes. PAST MEDICAL HISTORY PAST MEDICAL HISTORY Diagnosis Date ? Abnormal Pap smear of cervix 2004 ? Allergic rhinitis due to other allergen ? Depressive disorder, not elsewhere classified ? Fibromyalgia ? Food poisoning 2014 ? Irritable bowel syndrome ? Myalgia and myositis, unspecified ? Other chronic sinusitis PAST SURGICAL HISTORY PAST SURGICAL HISTORY Procedure Laterality Date ? HYSTEROSCOPY BX ENDOMETRIUM&/POLYPC W/WO D&C 09/18/2019 hysteroscopy D&C for AUP ? TONSILLECTOMY & ADENOIDECTOMY AGE 12/> 1996 CURRENT MEDICATIONS Current Outpatient Medications Medication Sig Dispense Refill ? norethindrone (AYGESTIN) 5 mg tablet Take 1 tablet by mouth as directed. 1 tablet 3 times daily until bleeding stops then twice daily for 2 days then 1 tablet daily until surgery 30 tablet 1 ? albuterol HFA (PROVENTIL HFA, VENTOLIN HFA) 90 mcg/actuation inhaler Inhale 2 Puffs as instructed every 6 hours as needed for wheezing/shortness of breath. 1 Each 0 ? Ejpsbassubzgvjy-Cxakyngei-IA (BROMFED DM) 2-30-10 mg/5 mL syrup Take 5 mL by mouth four times a day as needed. 120 mL 0 ? fluticasone (FLONASE) 50 mcg/actuation nasal spray Use 2 Sprays in each nostril once daily. Rinse mouth after use. 1 Each 0 ? sertraline (ZOLOFT) 100 mg tablet Take 1 tablet by mouth once daily. Dose change, take 1 daily 90 tablet 3 ? fluticasone (FLONASE) 50 mcg/actuation nasal spray Use 2 Sprays in each nostril once daily. Rinse mouth after use. 1 Each 0 ? benzonatate (TESSALON PERLE) 100 mg capsule Take 1-2 capsules by mouth three times a day as needed. 60 capsule 1 ? sod bicarb-sod chlor-neti pot (NEILMED NASAFLO) pkdv 1 Each by sinus irrigation route two times a day as needed (for sinus congestion and drainage). 30 Each 0 ? hydrOXYzine HCl (ATARAX) 10 mg tablet Take 1-2 tablets by mouth three times a day as needed for anxiety. 90 tablet 2 ? buPROPion XL (WELLBUTRIN XL) 150 mg 24 hr tablet Take 1 tablet by mouth once daily. 90 tablet 3 ? ondansetron orally disintegrating (ZOFRAN ODT) 4 mg disintegrating tablet Take 1 tablet by mouth every 6 hours as needed for nausea/vomiting. 20 tablet 0 ? cholecalciferol (VITAMIN D3) 5,000 unit tab Take 1 tablet by mouth once daily. ? Magnesium 250 mg tab Take 2 tablets by mouth once daily. for anxiety / depression ? ibuprofen (MOTRIN) 200 mg tablet Take 4 tablets by mouth every 8 hours as needed for pain (headache). Take with food. ? albuterol HFA (PROAIR HFA) 90 mcg/actuation inhaler Inhale 2 Puffs as instructed every 6 hours as needed. 1 Inhaler 2 No current facility-administered medications for this visit. ALLERGIES: Mold and Seasonal Allergies PERSONAL HISTORY: SOCIAL HISTORY Social History Tobacco Use ? Smoking status: Never ? Smokeless tobacco: Never Vaping Use ? Vaping status: Never Used Substance Use Topics ? Alcohol use: Yes Comment: Occasionally, but not while ? Drug use: No FAMILY HISTORY: FAMILY HISTORY FAMILY HISTORY Problem Relation Age of Onset ? Breast Cancer Mother ? other (hypercholesterolemia) Mother diet controlled ? Obesity Mother ? other (hysterectomy) Mother ? Parkinson?s Disease Father ? Prostate Cancer Father ? Obesity Father ? other (overweight) Sister ? Heart Maternal Grandmother ? Obesity Maternal Grandmother ? Psychiatry Maternal Grandfather ? Obesity Maternal Grandfather ? Hypertension Paternal Grandmother ? Heart Paternal Grandmother ? Obesity Paternal Grandmother ? Heart Paternal Grandfather ? Obesity Paternal Grandfather ? Autism Son REVIEW OF SYMPTOMS: negative except as noted above PHYSICAL EXAMINATION: VITALS: Last menstrual period 05/12/2024. GENERAL: The patient is well nourished, well hydrated in no acute distress. , The patient is oriented to time, place, and person. NECK: full range of motion LUNGS: Clear to auscultation bilaterally. no wheezes, rhonchi or rales HEART: Regular rate and rhythm, Normal heart sounds, and No murmurs or gallops IMPRESSION: 39yo with AUB, endometrial polyp PLAN: hysteroscopy, D&C, polypectomy with symphion Pt has been counseled on risks/benefits and alternatives of surgery including but not limited to anesthesia, bleeding, infection, uterine perforation injury to pelvic structures including bowel, bladder, ureters and vessels. Pt wishes to proceed with surgery at this time. I have reviewed and updated past medical and surgical history, medications and allergies Marisabel Acosta MD Office Visit on 05/21/2024 Note shared with patient
[2024-05-23] VITALS (7 sets, daily range): BP systolic 96–120; BP diastolic 54–79; PULSE 70–77; RESP 16–18; TEMP 36.1; O2SAT 92–99; BMI 38.9
[2024-05-23 06:14] LABS: Internal QC Validated? YES +Cl - CLEAR BKGD; Pregnancy, Urine Negative Negative
--- NOTE | 2024-05-23 06:49 | PRE.ANES_ITS ---
ASA Classification* ASA Classification ASA Classification: 3 Assessment & Plan Anesthesia* Anesthesia Assessment Anesthesia Assessment: Discussed sedation and/or anesthesia options, risks, benefits, and alternatives with patient/parents/legal guardian/POA. Questions invited. The patient/parents/legal guardian/POA seems to understand and agrees to proceed with anesthesia plan. Reviewed the physical assessment, medical history, allergy history and patient home medications list prior to surgery/procedure/anesthetic and documented any changes. Performed airway and anesthesia risk assessments. Anesthesia Type Anesthesia Type: MAC Anesthesia Focused Assessment* Temperature: 97.0 F Pulse Rate: 72 Blood Pressure: 113/67 Respiratory Rate: 16 Pulse Ox: 97 Airway Assessment Mouth opens: >3 cm Mallampati Score: II Focused Labs Anesthesia Preop lab: CBC WBC 8.6 K/mm3 (4.4-11.0) 05/16/24 01:55 05/16/24 RBC 3.91 M/mm3 (4.2-5.4) L 05/16/24 01:55 05/16/24 Hgb 11.7 g/dL (12.0-15.0) L 05/16/24 01:55 5 Hct 36.0 % (37-47) L 05/16/24 01:55 05/16/24 Plt Count 236 K/mm3 (150-450) 05/16/24 01:55 05/16/24 CHEMISTRY Potassium 4.1 mmol/L (3.3-5.1) 05/16/24 01:55 05/16/24 Sodium 138 mmol/L (133-145) 05/16/24 01:55 05/16/24 BUN 20 mg/dL (4-19) H 05/16/24 01:55 05/16/24 Creatinine 0.79 mg/dL (0.70-1.20) 05/16/24 01:55 05/16/24 Glucose 88 mg/dL (70-99) 05/16/24 01:55 05/16/24 COAG PT 12.9 SECONDS (11.7-14.9) 05/16/24 01:55 Urine Test Negative Negative 05/23/24 05:55 05/23/24 Pre-Assessment Diagnosis/Proposed Procedure Planned Operative Procedure(s): HYSTEROSCOPY D&C POLYPECTOMY INSERTION OF LILETTA IUD Anesthesia History 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 When Was Last Pacemaker Check QUESTION #4 FULL TEXT: You/Your Family Experience fever (hyperthermia) with Anesthesia Last Oral Intake Last Oral intake: Last Oral Intake NPO since 00:00 05/23/24 06:07 Meds taken in AM with sips of No 05/23/24 06:07 water? Meds patient instructed to take am of surgery PONV PONV - environmental field technician: PONV - environmental field technician Female Yes 05/22/24 08:54 HX of Motion Sickness No 05/22/24 08:54 HX of N/V After Surgery No 05/22/24 08:54 Non-Smoker Yes 05/22/24 08:54 Duration of Surgery greater Yes 05/22/24 08:54 than 60 minutes Number of Risk Factors 3 05/22/24 08:54 PONV Score Moderate Risk 05/22/24 08:54 Height & Weight Height & Weight: Anesthesia: Height & Weight Height 5 ft 8 in 05/23/24 06:07 Weight: 116 kg 05/23/24 06:07 Body Mass Index (BMI) 38.9 05/23/24 06:07 Respiratory Assessment Respiratory Assessment - environmental field technician: Respiratory Tract Infection Hx - environmental field technician Hx Respiratory Tract Infection No 05/22/24 08:54 STOP Sleep Apnea STOP Sleep Apnea - environmental field technician: STOP Sleep Apnea - environmental field technician Hx Hypertension No 05/22/24 08:54 Hx Sleep Apnea No 05/22/24 08:54 CPAP BIPAP Do you snore loudly (louder Yes 05/22/24 08:54 than talking or can be heard Do you often feel tired/ Yes 05/22/24 08:54 fatigued/ sleepy during daytime? Has anyone observed you stop No 05/22/24 08:54 breathing during sleep? STOP Results Positive 05/22/24 08:54 QUESTION #5 FULL TEXT : Do you snore loudly (louder than talking or can be heard through closed doors)? 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 Specify any problems Hx of Preganancy in last 3 No 05/22/24 08:54 Months Nurse Filling Out Transfusion DSCHRIBER 05/22/24 08:54 & Questions: Date: 05/22/24 05/22/24 08:54 Time: 08:55 05/22/24 08:54 Patient unable to answer at this time (ie. confused, unrespo /Reproduction History /Reproductive History - environmental field technician: /Reproductive Hx- environmental field technician Hx Now No 05/22/24 08:54 Gestational Age (in weeks): EDC: Hx Hx Para Hx Section SAB No 05/22/24 08:54 Active Medications Active Medications: Current Medications Generic Name Dose Route Start Last Admin Trade Name Freq PRN Reason Stop Dose Admin Levonorgestrel 1 each 05/23/24 07:30 Levonorgestrel Iud (Liletta) INTRA-UTER 05/23/24 07:31 X1 [facility] Medical History Depression History of steroid therapy Easy bruising Back pain Syncope Heartburn Non-smoker History of pain when walking History of edema Bradycardia Fibromyalgia Anxiety Home Medications ?Medication ?Instructions ?Recorded ?Last Taken ?Type sertraline 50 mg tablet 100 mg PO QHS 09/11/19 Unkno wn History hydroxyzine HCl 10 mg tablet 10 - 20 mg PO TID PRN PRN anxiety 05/16/24 Unknown History albuterol sulfate 90 mcg/actuation 2 puff inhalation Q 6H PRN PRN 05/22/24 Unknown History aerosol inhaler wheezing cvhqfejs-vtj-nbaj-FA-Ca carb-vit K 2 tab PO DAILY 05/06 08/29 Unknown History 18 mg iron-400 mcg-500 mg tablet norethindrone acetate 5 mg tablet mg PO 05/23/2405/22 History Allergy/AdvReac Type Severity Reaction Status Date / Time cat dander (cats) Allergy WATERY Verified 05/23/24 06:06 EYES, CONGESTION grass pollen Allergy Other Verified 05/23/24 06:06 mold Allergy Other Verified 05/23/24 06:06 Family History Other Breast cancer Hypertension Surgical History History of hysteroscopy History of tonsillectomy Social History Smoking Status: Never smoker alcohol intake: never substance use type: does not use what type of physical activity do you participate in: walking frequency: 1-2 times per week Review of Systems (Anesthesia) ROS Narrative System reviewed and no additional complaints, except as documented.
--- NOTE | 2024-05-23 07:16 | PCM.DC ---
Discharge Instructions Diet Discharge Diet: No restrictions DC O2, CPAP, BIPAP needs Home O2 Discharge instructions: No Dressing / Incision May resume sexual activity in: 1 week Dressing / Incision Call your doctor if you observe: Fever of 101 or Higher, Inability to urinate, Using more than 1 pad per hour and Uncontrolled pain Follow Up Care Please Follow Up With: Marisabel Kelly MD When: 4-6 weeks for IUD check. I will call you when pathology results are available. If you feel you need seen before that time please call [phone] to schedule an appointment. Test Results: Test results from this visit will be discussed in further detail at your follow-up appointment, if applicable. Discharge Plan Admission Attending Provider: Marisabel Kelly Primary Care Provider: Flor Grimm Instructions Print Language: Tamazight Discharge Orders/Prescriptions Prescriptions: No Action sertraline 50 MG tablet 100 mg PO QHS hydroxyzine HCl 10 mg tablet 10 - 20 mg PO TID PRN PRN (Reason: anxiety) albuterol sulfate 90 mcg/actuation HFA aerosol inhaler 2 puff INHALATION Q6H PRN PRN (Reason: wheezing) xj-gv-krvb-FA-Ca carb-vit K 18 mg iron-400 mcg-500 mg tablet 2 tab PO DAILY norethindrone acetate 5 mg tablet PO Referrals / Follow Up: Flor Grimm MD [Primary Care Provider] - Disposition Disposition (needs filled in before D/C Order can be placed): Home, Self Care
--- NOTE | 2024-05-23 07:30 | EMB_PTH ---
PATIENT: BRYAN LAN LOC: [facility] [place] U[place][id number] AGE/SX: 39/F ROOM: RE05/23/[address]: Dr. Marisabel Kelly, MDDOB: 1985 BED: DIS: 05/23/2024 SPEC #: [id number] RECD: 05/23/24 11:28 STATUS: ARPIT QURESHI #: [id number] YUNIOR: 05/23/24 07:[address]: Marisabel Kelly DEPT: SURGICAL PATHOLOGY RECD BY: Houston Saleem ENTERED: 05/23/24 11:28 SP TYPE: ENDOM BX/C MARGE DR: Dr. Flor Grimm MD Tissues: A - Endometrium, NOS Procedures: Surgery Specimen Level IV HEADER OPERATION: Hysteroscopy, D&C, polypectomy PRE-OP DIAGNOSIS: Abnormal uterine bleeding, endometrial polyp TISSUE SUBMITTED: A- Endometrial curettings and endometrial polyp MICROSCOPIC DIAGNOSIS A. Endometrium and endocervix, curettage and polypectomy: * Secretory endometrium with progestin features * Polyp with features of lower uterine segment origin MICROSCOPIC DESCRIPTION Slides are reviewed. GROSS DESCRIPTION A. Received in formalin in a container labeled with the patient's name, date of , and endometrial curettings and endocervical polyp are multiple aquino-pink fragments of soft tissue admixed with a scant amount of blood and mucus measuring 2.8 x 2.5 x 1.0 cm in aggregate. Submitted in toto in A1-3. [facility] 05/28/2024 CPT:72476
[2024-05-23] MEDS: Levonorgestrel IUD (Liletta) 1 EACH INTRA-UTER (07:39)
--- NOTE | 2024-05-23 07:41 | PCM.OPRPT ---
Operative Report (Standard) Operative Information Date of Procedure: 05/23/24 Pre-Operative Diagnosis: AUB, endometrial polyp Post-Operative Diagnosis: same, endocervical polyp Surgery/Procedure Performed: Hysteroscopy, D&C, polypectomy, Insertion of Liletta IUD professor of physics: No Type of Anesthesia: MAC RN Documented Start/Stop Times: Operation Date: 05/23/24 07:30 Case Time Into Pre-Op 05/23/24 05:54 Out of Pre-Op 05/23/24 07:12 Procedure Start Time: 07:28 Procedure Stop Time: 07:40 Select all DRAINS/GRAFTS/IMPLANTS that apply: Implanted device Implanted device details: Liletta IUD Estimated Blood Loss: <5cc Fluids Replaced: 300 Specimen collected: Yes Description of specimen(s) removed: endometrial curettings and endocervical polyp Description of surgery: Informed consent was obtained the patient was taken the operating room she was placed in supine position. She was given anesthesia. She was then placed in the [facility] where she was prepped and draped in the normal sterile fashion. At this time the weighted speculum was placed in the posterior fornix of vagina. Single-tooth tenaculum was used to gently grasp the anterior lip the cervix. At this time the uterine cavity was sounded to approximately 8.5 cm. Gentle dilatation was performed once adequate dilatation of the cervix was achieved the hysteroscope using normal saline as a distention medium was placed. Tubal ostia visualized. thickened endometrial tissue noted especially around fundal aspect and endocervix contained what appeared to be polyp . Symphion resecting device used to obtain endometrial curettings and to perform polypectomy. Tissue will be sent to pathology for evaluation. at this time Liletta IUD was placed at uterine fundus without difficulty and strings cut to 2.5cm and Tenaculum removed. Good hemostasis. Instrument, lap count correct x 2. Vaginal Sweep was negative. fluid deficit 550cc Surgical Findings: possible enodcervical polyp and and thickened tissue noted. Complications Complications: No Admit VTE Documentation VTE Present on Admission: Yes VTE Mechan Device Prophylaxis: SCD's VTE Pharm Prophylaxis ordered?: No Reason prophylaxis not ordered: Treatment Not Indicated
--- NOTE | 2024-05-23 07:52 | PCM.POST.ANE ---
Anesthesia: Postop Eval I Current Vital Signs Temperature: 96.9 F Pulse Rate: 75 Blood Pressure: 96/54 Respiratory Rate: 18 Pulse Ox: 92 Assessment Airway patent: Yes Spontaneous unlabored respirations: Yes nausea: No Vomiting: No Anesthesia Complication: No Fluid Hydration Crystalloid volume administer (ml): 300 Total IV fluid infused: 300 Progress Note Anesthesia document: Postop Eval 1 completed: Yes
--- NOTE | 2024-05-23 08:08 | POSTOPAN2_ITS ---
Anesthesia Postop Eval I Sum Postop Eval Completion status Anesthesia document: Postop Eval 1 completed: Yes Anesthesia Postop Eval I Summary Anesthesia Postop Eval I Summary: Anesthesia Postop Eval I: Assessment Summary Airway patent Yes 05/23/24 07:52 STUDENT [email or web address].[email or web address] Spontaneous unlabored Yes 05/23/24 07:52 STUDENT ADVISOR.TNES respirations Mental status nausea No 05/23/24 07:52 STUDENT ADVISOR.TNES Vomiting No 05/23/24 07:52 STUDENT ADVISOR.TNES Anesthesia Postop Eval I: Fluid Summary Crystalloid volume administer 300 05/23/24 07:52 STUDENT ADVISOR.TNES (ml) Colloids volume administered ( ml) Blood Product volume administered (ml) Total IV fluid infused 300 05/23/24 07:52 STUDENT ADVISOR.TNES Anesthesia Postop Eval I: Summary Notes Anesthesia Complication No 05/23/24 07:52 STUDENT ADVISOR.TNES Anesthesia Complication Comment: Post-operative progress note Anesthesia: Postop Eval II Evaluation Mental status: Awake Pain Level: 0 nausea: No Vomiting: No
--- NOTE | 2024-05-23 08:08 | PCM.POSTANE2 ---
Anesthesia Postop Eval I Sum Postop Eval Completion status Anesthesia document: Postop Eval 1 completed: Yes Anesthesia Postop Eval I Summary Anesthesia Postop Eval I Summary: Anesthesia Postop Eval I: Assessment Summary Airway patent Yes 05/23/24 07:52 PRODUCT MARKETING ENGINEER.TNES Spontaneous unlabored Yes 05/23/24 07:52 PRODUCT MARKETING ENGINEER.TNES respirations Mental status nausea No 05/23/24 07:52 PRODUCT MARKETING ENGINEER.TNES Vomiting No 05/23/24 07:52 PRODUCT MARKETING ENGINEER.TNES Anesthesia Postop Eval I: Fluid Summary Crystalloid volume administer 300 05/23/24 07:52 PRODUCT MARKETING ENGINEER.TNES (ml) Colloids volume administered ( ml) Blood Product volume administered (ml) Total IV fluid infused 300 05/23/24 07:52 PRODUCT MARKETING ENGINEER.TNES Anesthesia Postop Eval I: Summary Notes Anesthesia Complication No 05/23/24 07:52 PRODUCT MARKETING ENGINEER.TNES Anesthesia Complication Comment: Post-operative progress note Anesthesia: Postop Eval II Evaluation Mental status: Awake Pain Level: 0 nausea: No Vomiting: No
== END 2024-05-23 08:49 | disposition home or self-care (01) ==
LOC: SDC 05:42 → AC 05:43
PROVIDERS: PCP Internal Medicine; Referring Provider Obstetrics & Gynecology; Visit Provider Obstetrics & Gynecology
PROC: 0UB98ZZ Excision of Uterus, Via Natural or Artificial Opening Endoscopic (ICD-10-PCS; CPT 58558; principal; 2024-05-23 07:15)
DX: N84.0 Polyp of corpus uteri (principal); N93.9 Abnormal uterine and vaginal bleeding, unspecified; N84.1 Polyp of cervix uteri
CPT/HCPCS: 58558; 58300; 00952; 81025; 88305; A4216

== ENCOUNTER 2024-10-06 13:24 | Emergency (ER) | payer BC, SELFPAY ==
[2024-10-06 13:24] VITALS: BP 116/78; PULSE 104; RESP 18; TEMP 36.8; O2SAT 96; BMI 36.1
--- NOTE | 2024-10-06 13:42 | EX.ED.DYSGE1 ---
HPI History of Present Illness Chief Complaint: General Illness Informant: patient Onset/Context/Timing Onset: Weeks (2) Context: Gradual Onset Timing: Intermittent Quality: Aching Location: Generalized Worsened by: Nothing Relieved by: Sleep, warm shower Narrative Narrative: Patient presents with generalized bodyaches, fatigue, subjective fevers, chills, and sweats that have been intermittent over the past 2 weeks. Patient states she feels better when she wakes up from sleep. Patient states she takes a warm shower and seems to help. Patient states that throughout the day it gets progressively worse. Patient describes it as aching. Patient states it is generalized. Patient admits to some nausea and vomiting. Patient states she also wakes up in a sweat in the morning. Patient also admits to a headache. [facility] Medical History Depression History of steroid therapy Easy bruising Back pain Syncope Heartburn Non-smoker History of pain when walking History of edema Bradycardia Fibromyalgia Anxiety Home Medications ?Medication ?Instructions ?Recorded ?Last Taken ?Type hydroxyzine HCl 10 mg tablet 10 - 20 mg PO TID PRN PRN anxiety 05/16/24 Unknown History [id number] carb-vit K 2 tab PO DAILY 05/22/24 Unknown History 18 mg iron-400 mcg-500 mg tablet cephalexin 500 mg capsule 500 mg PO Q6 #12 CAPSULES 10/06/24 Unknown Rx sertraline 100 mg tablet 100 mg PO DAILY 10/06/24 Unknown History Allergy/AdvReac Type Severity Reaction Status Date / Time cat dander (cats) Allergy WATERY Verified 10/06/24 13:26 EYES, CONGESTION grass pollen Allergy Other Verified 10/06/24 13:26 mold Allergy Other Verified 10/06/24 13:26 Family History Other Breast cancer Hypertension Surgical History History of hysteroscopy History of tonsillectomy Social History Smoking Status: Never smoker alcohol intake: never substance use type: does not use what type of physical activity do you participate in: walking frequency: 1-2 times per week ROS ROS ED Constitutional Constitutional ED: Reports chills, fever(s), subjective and sweats Eyes Eyes: Denies blurry vision or change in vision ENT ENT ED: Denies rhinorrhea or sore throat Cardiovascular Cardiovascular: Denies chest pain or palpitations Respiratory/Chest Respiratory/Chest: Denies cough or dyspnea Gastrointestinal Gastrointestinal: Reports nausea and vomiting Genitourinary Genitourinary ED: Denies dysuria or hematuria Musculoskeletal Musculoskeletal: Reports myalgias Integumentary Denies abscess or rash Neurologic Neurologic: Reports headache(s); Denies weakness Allergic/Immunologic Allergic/Immunologic ED: Denies mouth swelling or urticaria EXAM Physical Exam Const Vital Signs: 10/06/24 13:24 10/06/24 13:24 10/06/24 14:18 Temperature 98.2 F 98.2 F Temperature Source Oral Oral Pulse Rate 104 H 104 H Pulse Rate [Lying] 88 Pulse Rate [Sitting (for 1 minute prior to obtaining)] 95 Pulse Rate [Standing (for 1 minute prior to obtaining)] 97 Respiratory Rate 18 18 Respiratory Effort Respiratory Pattern Blood Pressure 116/78 116/78 Blood Pressure [Lying] 121/73 H Blood Pressure [Sitting (for 1 minute prior to obtaining)] 126/69 H Blood Pressure [Standing (for 1 minute prior to obtaining)] 120/69 Blood Pressure Mean 90 90 Blood Pressure Mean [Lying] 89 Blood Pressure Mean [Sitting (for 1 minute prior to obtaining)] 88 Blood Pressure Mean [Standing (for 1 minute prior to obtaining)] 86 Pulse Ox 96 96 Oxygen Delivery Method Room Air Room Air 10/06/24 14:30 10/06/24 14:38 Temperature 98.3 F Temperature Source Oral Pulse Rate 86 Pulse Rate [Lying] Pulse Rate [Sitting (for 1 minute prior to obtaining)] Pulse Rate [Standing (for 1 minute prior to obtaining)] Respiratory Rate 18 Respiratory Effort Normal Non-Labored Respiratory Pattern Normal Blood Pressure 108/73 Blood Pressure [Lying] Blood Pressure [Sitting (for 1 minute prior to obtaining)] Blood Pressure [Standing (for 1 minute prior to obtaining)] Blood Pressure Mean 84 Blood Pressure Mean [Lying] Blood Pressure Mean [Sitting (for 1 minute prior to obtaining)] Blood Pressure Mean [Standing (for 1 minute prior to obtaining)] Pulse Ox 98 Oxygen Delivery Method Room Air MDM MDM MDM Narrative Medical decision making narrative: Differential diagnosis includes infectious mononucleosis, viral illness, pneumonia, electrolyte abnormality, urinary tract infection, dehydration, and anxiety. CBC will be obtained to assess for leukocytosis and anemia. Basic metabolic profile will be obtained to assess for electrolyte abnormality renal function. Monotest will be obtained to assess for infectious mononucleosis. Urinalysis will be obtained to assess for urinary tract infection and hematuria. COVID-19, influenza, and RSV PCR will be obtained to assess for viral illness. Chest x-ray will be obtained to assess for pneumonia. Lab Data Attestation: I reviewed the patient's lab results. Lab results narrative: CBC was reviewed. There is mild leukocytosis of 16.1. There is a mild anemia with a hemoglobin of 10.9 and hematocrit 33.4. Platelets are slightly elevated at 571. Basic metabolic profile was reviewed and was within normal limits. Urinalysis was reviewed. There are 5-10 white blood cells and 5-10 epithelial cells. There is 2+ bacteria. Monotest was reviewed and was negative. COVID-19 PCR was reviewed and was negative. Influenza PCR was reviewed and was negative for influenza A and influenza B. RSV PCR was reviewed and was negative. Labs: Laboratory Results - last 24 hr 10/06/24 10/06/24 13:55 14:24 WBC 16.1 H RBC 4.04 L Hgb 10.9 L Hct 33.4 L MCV 82.7 MCH 27.0 MCHC 32.6 RDW Std Deviation 53.2 H RDW Coeff of [place] 17.7 H Plt Count 571 H MPV 8.7 Immature Gran % (Auto) 0.700 Neut % (Auto) 77.7 H Lymph % (Auto) 10.7 L Hopkins % (Auto) 9.4 Eos % (Auto) 1.4 Baso % (Auto) 0.1 Absolute Neuts (auto) 12.6 H Absolute Lymphs (auto) 1.72 Nucleated RBC % 0 Differential Comment SCANNED Platelet Estimate MOD INC Sodium 137 Potassium 4.1 Chloride 106 Carbon Dioxide 19.4 L Anion Gap 12 BUN 16 Creatinine 0.68 L Estim Creat Clear Calc 142.95 Est GFR (MDRD) Non-Af 114 BUN/Creatinine Ratio 23.2 H Glucose 89 Calcium 9.1 Urine Color Yellow Urine Clarity Sl. Cloudy Urine pH 6.0 Ur Specific [place] 1.015 Urine Protein 30 H Urine Glucose (UA) Normal Urine Ketones Negative Urine Occult Blood 250 H Urine Nitrite Negative Urine Bilirubin Negative Urine Urobilinogen Normal Ur Leukocyte Esterase Negative Urine RBC 0 SEEN Urine WBC 5-10 SEEN Ur Squamous Epith Cells 5-10 SEEN Urine Bacteria 2+ Urine Mucus 0 SEEN Monoscreen Negative Radiography Chest X-Ray - ED: 2 View, Read by ED Physician, Read by Radiologist and No Acute Disease Diagnostic Testing: Clinical Impression(s) from Imaging Studies Chest X-Ray 10/06/24 13:44 IMPRESSION: No acute cardiopulmonary process. Reading Location: [id number] PA and lateral chest x-ray was obtained. There are 2 views. On my independent interpretation, lung wilkinson are clear. There is normal cardiac silhouette. Bony thorax is normal. There is no acute process noted. Radiologist also interpreted the x-ray and agrees. Additional Tests and Interventions Additional Tests or Interventions: Blood cultures were obtained. Treatment and Re-Evaluation :: Patient was given IV fluids and Tylenol. Orthostatic vital signs were obtained and were within normal limits. Patient was advised of her findings. We will cover the patient with antibiotics for possible urinary tract infection. Patient was instructed to drink plenty of fluids. Patient was instructed to continue with Tylenol and ibuprofen as needed for any fevers. Patient was instructed to follow-up with her primary care physician in 5 to 7 days. Patient was instructed to return if worse in any way. Patient understood and was agreeable with the plan. All questions were answered. Discharge Plan Triage Chief Complaint: General Illness ED Provider: Toribio Smith Dx/Rx/DC Orders Clinical Impression: Urinary tract infection, Febrile illness Instructions: ED Fever Control (Adult), ED Cystitis Female Adult Prescriptions: New cephalexin 500 mg capsule 500 mg PO Q6 Qty: 12 0RF No Action hydroxyzine HCl 10 mg tablet 10 - 20 mg PO TID PRN PRN (Reason: anxiety) [id number]-sf-[id number]-FA-Ca carb-vit K 18 mg iron-400 mcg-500 mg tablet 2 tab PO DAILY sertraline 100 mg tablet 100 mg PO DAILY Primary Care Provider: Flor Grimm Referrals: Flor Grimm MD [Primary Care Provider] - 5-7 Days Print Language: Rw[place] Disposition Disposition: Home, Self Care
--- NOTE | 2024-10-06 13:44 | RAD_ITS ---
PROCEDURE: CHEST PA AND LATERAL 10/06/2024 REASON FOR EXAM: FEVER TECHNIQUE: Procedure Code: RADCXR Modality: DX Procedure: CHEST PA AND LATERAL COMPARISON: None FINDINGS: Hardware: None Heart: Mildly enlarged Mediastinum: Normal Lungs: Subsegmental atelectasis blunts the right costophrenic sulcus. Bones: The bones are unremarkable. RAD/Chest PA and Lateral IMPRESSION: No acute cardiopulmonary process. Reading Location: [id number]
[2024-10-06 14:08] LABS: Differential Indicated SCAN CRITERIA MET; Hematocrit 33.4 % (37-47); Hemoglobin 10.9 g/dL (12.0-15.0); Immature Granulocytes Count 0.110 X10^3/uL (0.0-0.0); Mean Corp Hgb Conc 32.6 g/dL (32-36); Mean Corpuscular Volume 82.7 fL (81-99); Mean Platelet Vol. 8.7 fl (6.2-12.0); NRBC Flagged by Analyzer 0 % (0-5); POSITIVE DIFFERENTIAL YES; Platelet Count 571 K/mm3 (150-450); RBC Distribution Width CV 17.7 % (11.6-14.6); RBC Distribution Width SD 53.2 fl (35.1-43.9); Red Blood Count 4.04 M/mm3 (4.2-5.4); White Blood Count 16.1 K/mm3 (4.4-11.0)
[2024-10-06] MEDS: 0.9% Normal Saline (1000mL) 1,000 ML 1000 ML IV (14:10)
[2024-10-06 14:18] VITALS: BP 120/69; BP 121/73; BP 126/69; PULSE 88; PULSE 95; PULSE 97
[2024-10-06 14:25] LABS: Anion Gap 12 (5-15); BUN 16 mg/dL (4-19); BUN/Creat Ratio 23.2 RATIO (10-20); Calcium,Total 9.1 mg/dL (7.6-11.0); Carbon Dioxide 19.4 mmol/L (21.0-32.0); Chloride 106 mmol/L (98-108); Estimated Creatinine Clearance 142.95 ml/min (50-250); Glucose 89 mg/dL (70-99); Potassium 4.1 mmol/L (3.3-5.1)
[2024-10-06 14:27] LABS: Mucous, Urine 0 SEEN /hpf (<or=2+); Red Blood Cells-Urine 0 SEEN /hpf (0-5)
[2024-10-06 14:28] LABS: Color, Urine Yellow (Yellow); Glucose, Dipstick Normal (Normal); Ketone-Dipstick Negative (Negative); Leukocyte Esterase-Dipstick Negative /ul (Negative); Nitrite-Dipstick Negative (Negative); Occult Blood-Urine 250 /ul (Negative); Protein-Dipstick 30 mg/dl (Negative); Specific Gravity, Urine 1.015 (1.002-1.030); Urine Bilirubin Dipstick Negative (Negative)
[2024-10-06 14:30] VITALS: BP 108/73; PULSE 86; RESP 18; TEMP 36.8; O2SAT 98
[2024-10-06 14:34] LABS: Differential Comment SCANNED
--- OUTSIDE RECORDS SUMMARY | 2024-10-06 14:34 | XMS RPT_ITS | CCD ---
Author Organization [facility] Care Team Providers Care Health Unit Supervisor Name Role Phone Hung Rivero MD Primary Care Provider Hung Rivero MD Primary Care Provider Carvajal DEPARTMENT HEAD.DATABASE TECHNICIAN, Shefali Unavailable Rosemary DEPARTMENT HEAD.AIR DEFENCE OFFICER, Cassi Unavailable Rosemary DEPARTMENT HEAD.AIR DEFENCE OFFICER, Cassi Anna Unavailable Rosemary DEPARTMENT HEAD.AIR DEFENCE OFFICER, Cassi Unavailable Rosemary DEPARTMENT HEAD.AIR DEFENCE OFFICER, Cassi Unavailable Rosemary DEPARTMENT HEAD.AIR DEFENCE OFFICER, Cassi Unavailable Dr. Hung Rivero MD Primary Care Provider Dr. Stanley Norris DO Emergency Provider Dr. Stanley Norris DO Attending Provider Leticia VIZCARRA, Dr. Petit Attending Provid er Dr. Marisabel Kelly MD Referring Provid er Hung Rivero Primary Care Unavailable Stanley Norris Attending Unavailable Hung Rivero Primary Care Unavailable Marisabel Kelly Referring Unavail able Marisabel Kelly Attending Unavail able Hung Rivero Primary Care Unavailable Clark FOLDER SEAMER, Adriana Referring Unavailable Clark FOLDER SEAMER, Adriana Attending Unavailable Clark FOLDER SEAMER, Adriana Referring Unavailable Clark FOLDER SEAMER, Adriana Attending Unavailable Hung Rivero Primary Care Unavailable Clark FOLDER SEAMER, Adriana Referring Unavailable Clark FOLDER SEAMER, Adriana Attending Unavailable Talampas, Hung D Primary Care Unavailable Talampas, Hung D Primary Care Unavailable Clark FOLDER SEAMER, Adriana Attending Unavailable Clark FOLDER SEAMER, Adriana Referring Unavailable Carvajal DEPARTMENT HEAD.DATABASE TECHNICIAN, Shefali Unavailable [phone] TALAMPAS, HUNG D Primary Care Unavailable BRIDGET REYES Attending Unavailable TALAMPAS, HUNG D Attending Unavailable TALAMPAS, HUNG D Primary Care Unavailable TALAMPAS, HUNG D Primary Care Unavailable CLARK, ADRIANA Attending Unavailable TALAMPAS, HUNG D Primary Care Unavailable CARVAJAL, SHEFALI Referring Unavailable TALAMPAS, HUNG D Attending Unavailable TALAMPAS, HUNG D Primary Care Unavailable HAYLIE GARZA Attending Unavailable TALAMPAS, HUNG D Primary Care Unavailable TALAMPAS, HUNG D Referring Unavailable TALAMPAS, HUNG D Primary Care Unavailable TALAMPAS, HUNG D Referring Unavailable TALAMPAS, HUNG D Primary Care Unavailable CARVAJAL, SHEFALI Referring Unavailable TALAMPAS, HUNG D Attending Unavailable TALAMPAS, HUNG D Primary Care Unavailable CARVAJAL, SHEFALI Attending Unavailable TALAMPAS, HUNG D Primary Care Unavailable TALAMPAS, HUNG D Primary Care Unavailable SELF Referring Unavailable TALAMPAS, HUNG D Attending Unavailable TALAMPAS, HUNG D Primary Care Unavailable MARISABEL CRYSTAL Attending Unavail able TALAMPAS, HUNG D Primary Care Unavailable CLARK, AMY Attending Unavailable TALAMPAS, HUNG D Primary Care Unavailable CLARK, ADRIANA Referring Unavailable TALAMPAS, HUNG D Primary Care Unavailable TALAMPAS, HUNG D Referring Unavailable TALAMPAS, HUNG D Primary Care Unavailable TALAMPAS, HUNG D Referring Unavailable TALAMPAS, HUNG D Referring Unavailable TALAMPAS, HUNG D Primary Care Unavailable TALAMPAS, HUNG D Attending Unavailable TALAMPAS, HUNG D Primary Care Unavailable CARVAJAL, SHEFALI Attending Unavailable TALAMPAS, HUNG D Primary Care Unavailable Allergies Allergy Classification Reported Allergen(s) Allergy Type Date of Onset Reaction(s) Facility (20 sources) Cat Allergy to substance 9 Other: See Comments [place] Work Phone: (20 sources) Seasonal allergy; Translations: [SEASONAL ALLERGIES] Allergy to substance 1 Other: See Comments [place] Work Phone: (20 sources) Grass pollen; Translations: [grass pollen] Drug Allergy 0 Other: See Comments [place] Comment on above: SNEEZING (20 sources) Mold Extract; Translations: [MOLD] Drug Allergy 0 Other: See Comments [place] Comment on above: SNEEZING (7 sources) cat dander; Translations: [cat dander] Allergy to substance 3 WATERY EYES, CONGESTION [facility] (1 source) Mold Extract Drug Allergy 5 [facility] Repository Medications Current Medications Medication Drug Class(es) Dates Sig (Normalized) Sig (Original) acetaminophen 325 mg oral tablet (4 sources) take 2 tablets by mouth every six hours as needed acetaminophen (TYLENOL) 325 mg tablet Take 650 mg by mouth every 6 hours as needed. Active [id number] actuat albuterol 0.09 mg/actuat metered dose inhaler (20 sources) beta2-Adrenergic Agonist Start: 05-22-2024 Albuterol Sulfate 90 mcg/actuation HFA aerosol inhaler Active 2 NMA INHALATION EVERY 6 HOURS NEEDED as needed for wheezing May 22, 2024 12:00am Start: 04-24-2024 take 2 puff(s) by in halation every six hours as needed for wheezing albuterol HFA (PROVENTIL HFA, VENTOLIN HFA) 90 mcg/actuation inhaler Indications: Acute cough Inhale 2 Puffs as instructed every 6 hours as needed for wheezing/shortness of breath. 1 Each 04/24/2024 Active Start: 05-29-2021 End: 08-05-2021 take 2 puff(s) by inhalation every six hours as needed for wheezing albuterol HFA (PROVENTIL HFA, VENTOLIN HFA) 90 mcg/actuation inhaler Indications: Acute cough Inhale 2 Puffs as instructed every 6 hours as needed for wheezing/shortness of breath. 1 Each 04/24/2024 Active Comment on above: Inhale 2 Puffs as in structed every 6 hours as needed. amoxicillin 875 mg oral tablet (2 sources) Penicillin-class Antibacterial Start: End: 5 take 1 tablet by mouth twice daily amoxicillin (AMOXIL) 875 mg tablet Indications: Acute otitis media, left Take 1 tablet by mouth two times a day for 10 days. 20 tablet 06/14/2024 06/24/2024 Active Start: 09-25-2022 End: 10-05-2022 take 1 tablet by mouth twice daily at mealtime amoxicillin (AMOXIL) 875 mg tablet Indications: Sore throat Take 1 tablet by mouth twice daily for 10 days. Take with food. For sore throat 20 tablet 0 09/25/2022 10/05/2022 Active Comment on above: Take 1 tablet by alex th twice daily for 10 days. Take with food. For sore throat amoxicillin 875 mg / clavulanate 125 mg oral tablet (3 sources) Penicillin-class Antibacterial Start: 02-18-19 End: 02-25-19 take 1 tablet by mouth every twelve hours at mealtime amoxicillin-clavulana te potassium (AUGMENTIN) 875-125 mg per tablet Indications: Sinobronchitis Take 1 tablet by mouth every 12 hours for 7 days. Take with food 14 tablet 02/19/2024 02/26/2024 Active Start: 05-20-2021 End: 05-27-2021 take 1 tablet by mouth twice daily amoxicillin-clavulanic acid (AUGMENTIN) 875-125 mg per tablet Take 1 tablet by mouth twice daily for 7 days. 14 tablet 0 05/20/2021 05/23/2021 Discontinued (Course of therapy completed) Comment on above: Take 1 tablet by alex th twice daily for 7 days. benzonatate 100 mg oral capsule (20 sources) Non-narcotic Antitussive Start: 02-18-19 take 1 capsule by mouth three times daily as needed benzonatate (TESSALON PERLE) 100 mg capsule Indications: Sinobronchitis Take 1-2 capsules by mouth three times a day as needed. 60 capsule 1 02/19/2024 Active Start: 05-29-2021 End: 10-21-2021 take 2 capsules by mouth three times daily as needed benzonatate (TESSALON PERLES) 100 mg capsule Indications: Suspected COVID-19 virus infection Take 2 capsules by mouth three times daily as needed. 30 capsule 06/24/2021 08/05/2021 Discontinued Comment on above: Take 2 capsules by m out three times daily as needed. brompheniramine maleate 0.4 mg/ml / dextromethorphan hydrobromide 2 mg/ml / pseudoephedrine hydrochloride 6 mg/ml oral solution (12 sources) alpha-Adrenergic Agonist, Uncompetitive E-ivzujs-D-aspartate Receptor Antagonist, Sigma-1 Agonist Start: 04-25-19 take 5 mL by mouth four times daily as needed Brompheniramine-Pse udoeph-DM (BROMFED DM) 2-30-10 mg/5 mL syrup Indications: Acute cough Take 5 mL by mouth four times a day as needed. 120 mL 04/24/2024 Active 24 hr buPROPion hydrochloride 150 mg extended release oral tablet (20 sources) Aminoketone Start: 10-28-19 End: 09-30-19 take 1 tablet by mouth once daily buPROPion XL (WELLBUTRIN XL) 150 mg 24 hr tablet Indications: Anxiety and depression Take 1 tablet by mouth once daily. 90 tablet 3 05/27/2024 09/29/2024 Discontinued Start: 09-25-2022 take 1 tablet by alex th once daily buPROPion XL (WELLBUTRIN XL) 150 mg 24 hr tablet Take 1 tablet by mouth once daily. for mood 30 tablet 11 09/25/2022 Active Comment on above: Take 1 tablet by alex th once daily. for mood Take 1 tablet by alex th once daily. cefuroxime 500 mg oral tablet (3 sources) Cephalosporin Antibacterial Start: End: take 1 tablet by mouth twice daily cefUROXime (CEFTIN) 500 mg tablet Indications: Other non-recurrent acute nonsuppurative otitis media of right ear , Acute non-recurrent maxillary sinusitis Take 1 tablet by mouth two times a day for 7 days. 14 tablet 09/29/2024 10/06/2024 Active cholecalciferol 0.125 mg oral tablet (20 sources) Vitamin D Start: take 1 tablet by mouth once daily cholecalciferol (VITAMIN D3) 5,000 unit tab Take 1 tablet by mouth once daily. 09/25/2022 Active Comment on above: Take 1 tablet by alex th once daily. doxycycline hyclate 100 mg oral tablet (8 sources) Tetracycline-class Drug Start: End: take 1 tablet by mouth twice daily doxycycline (VIBRA-TABS) 100 mg tablet Indications: Sinus congestion Take 1 tablet by mouth two times a day for 7 days. Patient should start on April 26, 2024. 14 tablet 04/26/2024 05/03/2024 Active Start: 01-15-2023 End: 01-25-2023 take 1 tablet by mouth twice daily doxycycline (VIBRA-TABS) 100 mg tablet Indications: Cellulitis of skin , Rash Take 1 tablet by mouth two times a day for 10 days. 20 tablet 0 01/15/2023 01/25/2023 Active Start: 12-20-2022 End: 12-30-2022 take 1 tablet by mouth twice daily doxycycline (VIBRA-TABS) 100 mg tablet Indications: Cellulitis of skin , Rash Take 1 tablet by mouth two times a day for 10 days. 20 tablet 0 12/20/2022 12/30/2022 Active Start: 05-23-2021 End: 05-30-2021 take 1 capsule by mouth twice daily doxycycline monohydrate (MONODOX) 100 mg capsule Indications: Acute non-recurrent maxillary sinusitis Take 1 capsule by mouth twice daily for 7 days. 14 capsule 0 05/23/2021 05/30/2021 Active Comment on above: Take [address] [facility] twice daily for 7 days. Take 1 tablet by alex two times a day for 10 days. hydrOXYzine hydrochloride 10 mg oral tablet (20 sources) Antihistamine Start: 09-03-19 End: 09-30-19 take 1-2 tablets by mouth three times daily as needed for anxiety hydrOXYzine HCl (ATARAX) 10 mg tablet Indications: Anxiety attack Take 1-2 tablets by mouth three times a day as needed for anxiety. 90 tablet 3 09/29/2024 Active Start: 06-04-2023 End: 08-27-2024 take 1-2 tablets by mouth three times daily as needed for anxiety hydrOXYzine HCl (ATARAX) 10 mg tablet Indications: Anxiety attack Take 1-2 tablets by mouth three times a day as needed for anxiety. 90 tablet 2 09/10/2023 08/27/2024 Discontinued Start: 07-10-2022 End: 06-01-2023 take 1-2 tablets by mouth three times daily as needed for anxiety hydrOXYzine HCl (ATARAX) 10 mg tablet Indications: Anxiety attack Take 1-2 tablets by mouth three times daily as needed for anxiety. 90 tablet 0 08/02/2022 06/01/2023 Discontinued Comment on above: Take 1-2 tablets by mouth three times daily as needed for anxiety. ibuprofen 200 mg oral tablet (20 sources) Nonsteroidal Anti-inflammatory Drug Start: 10-22-19 take 4 tablets by mouth every eight hours as needed for pain ibuprofen (MOTRIN) 200 mg tablet Indications: Cervicalgia , Tension headache Take 4 tablets by mouth every 8 hours as needed for pain (headache). Take with food. 10/21/2021 Active Comment on above: Take 4 tablets by mo [facility] every 8 hours as needed for pain (headache). Take with food. Inhalational Spacing Device (1 source) Start: 04-25-19 End: 04-25-19 Inhalational Spacing Device 1 Device one time only for 1 dose. 1 Each 04/24/2024 04/24/2024 Active Magnesium (20 sources) Start: 09-26-19 take 2 tablets by mouth once daily for anxiety Magnesium 250 mg tab Take 2 tablets by mouth once daily. for anxiety / depression 09/25/2022 Active Start: 09-25-2022 take 2 tablets by mo [facility] once daily for anxiety Magnesium 250 mg tab Take 2 tablets by mouth once daily. for anxiety / depression 0 09/25/2022 Active Comment on above: Take 2 tablets by mo [facility] once daily. for anxiety / depression mupirocin 0.02 mg/mg topical ointment (1 source) RNA Synthetase Inhibitor Antibacterial Start: 023 End: 023 mupirocin (BACTROBAN) 2 % ointment Apply 1 application to affected area two times a day for 10 days. Apply to open area arm 15 g 0 01/18/2023 2023 Active Comment on above: Apply 1 application to affected area two times a day for 10 days. Apply to open area arm Gm-Lh-Dszj-Fa-Ca Carb-Vit K 18 mg iron-400 mcg-500 mg tablet (1 source) Start: 025 Hq-Mp-Ygei-Fa-Ca Carb-Vit K 18 mg iron-400 mcg-500 mg tablet Active 2 {tbl} PO DAILY May 22, 2024 12:00am norethindrone acetate 5 mg oral tablet (9 sources) Start: End: norethindrone (AYGESTIN) 5 mg tablet Indications: Abnormal uterine bleeding due to endometrial polyp Take 1 tablet by mouth as directed. 1 tablet 3 times daily until bleeding stops then twice daily for 2 days then 1 tablet daily until surgery 30 tablet 1 05/16/2024 09/29/2024 Discontinued omeprazole 20 mg delayed release oral capsule (20 sources) Proton Pump Inhibitor Start: take 1 capsule by mouth once daily before breakfast omeprazole (PRILOSEC) 20 mg capsule Take 1 capsule by mouth daily before breakfast. 30 capsule 2 06/26/2024 Active Start: 04-20-2021 End: 09-19-2021 take 1 capsule by mouth once daily omeprazole (PRILOSEC) 20 mg capsule Indications: Right upper quadrant abdominal tenderness without rebound tenderness , Nausea , Diarrhea, unspecified type Take 1 capsule by mouth once daily. 30 capsule 04/20/2021 09/19/2021 Discontinued Comment on above: Take 1 capsule by [facility] once daily. ondansetron 4 mg disintegrating oral tablet (20 sources) Serotonin-3 Receptor Antagonist Start: End: take 1 tablet by mouth every eight hours as needed for nausea Ondansetron 4 mg tablet,disintegratin g Discontinued 4 mg PO EVERY 8 HOURS NEEDED as needed for Nausea January 21, 2023 1:00am May 16, 2024 1:27am Start: 03-31-2021 End: 08-05-2021 take 1 tablet by mouth every eight hours as needed ondansetron orally disintegrating (ZOFRAN ODT) 4 mg disintegrating tablet Indications: Gastroenteritis, acute Take 1-2 tablets by mouth every 8 hours as needed for nausea/vomiting. 20 tablet 03/31/2021 08/05/2021 Discontinued Start: 03-27-2021 End: 10-01-2024 take 1 tablet by mouth every six hours as needed ondansetron orally disintegrating (ZOFRAN ODT) 4 mg disintegrating tablet Take 1 tablet by mouth every 6 hours as needed for nausea/vomiting. 20 tablet 10/01/2024 Active Comment on above: Take 1-2 tablets by mouth every 8 hours as needed for nausea/vomiting. Take 1 tablet by alex th every 6 hours as needed for nausea/vomiting. sertraline 100 mg oral tablet (20 sources) Serotonin Reuptake Inhibitor Start: End: take 1 tablet by mouth once daily, then take 1 tablet by mouth once daily sertraline (ZOLOFT) 100 mg tablet Indications: Anxiety and depression Take 1 tablet by mouth once daily. Dose change, take 1 daily 90 tablet 3 09/29/2024 09/29/2025 Active Start: 12-04-2022 End: 09-10-2023 take 0.5 tablet by mouth once daily sertraline (ZOLOFT) 100 mg tablet Indications: Anxiety and depression Take 0.5 tablets by mouth once daily. 90 tablet 3 12/04/2022 09/10/2023 Discontinued Start: 02-14-2021 End: 12-04-2022 take 1 tablet by mouth once daily sertraline (ZOLOFT) 100 mg tablet Indications: Anxiety and depression Take 1 tablet by mouth once daily. 90 tablet 3 10/27/2022 12/04/2022 Discontinued (Adjust Sig - Block E-Cancel) Start: 09-11-2019 take [address] [facility] at bedtime Sertraline 50 MG tablet Active 100 mg PO AT BEDTIME September 11, 2019 12:00am Start: 09-11-2019 End: 09-09-2024 take 1 tablet by mouth once daily, then take 1 tablet by mouth once daily sertraline (ZOLOFT) 50 mg tablet Indications: Anxiety and depression Take 1 tablet by mouth once daily. Dose change, take 1 daily 90 tablet 3 09/10/2023 02/19/2024 Discontinued Comment on above: Take 1 tablet by alex th once daily. Take 0.5 tablets by mouth once daily. sod bicarb-sod chlor-neti pot (NEILMED NASAFLO) pkdv (20 sources) Start: 02-19-2024 End: 09-29-2024 sod bicarb-sod chlor-neti pot (NEILMED NASAFLO) pkdv Indications: Sinobronchitis 1 Each by sinus irrigation route two times a day as needed (for sinus congestion and drainage). 30 Each 02/19/2024 09/29/2024 Discontinued Start: 02-19-2024 sod bicarb-sod chlor-neti pot (NEILMED NASAFLO) pkdv Indications: Sinobronchitis 1 Each by sinus irrigation route two times a day as needed (for sinus congestion and drainage). 30 Each 02/19/2024 Active triamcinolone acetonide 1 mg/ml topical cream (8 sources) Corticosteroid Start: 01-15-2023 End: 01-25-2023 triamcinolone acetonide (KENALOG) 0.1 % cream Indications: Rash Apply 1 application to affected area three times a day for 10 days. Apply sparingly to area for rash/itching. 80 g 0 01/15/2023 01/25/2023 Active Start: 12-20-2022 End: 12-20-2022 triamcinolone acetonide 40 m g injection (KeNALog 40) Start: 12-19-2022 End: 12-29-2022 triamcinolone acetonide (JANEE ALOG) 0.1 % cream Indications: Rash Apply 1 application to affected area three times a day for 10 days. Apply sparingly to area for rash/itching. 80 g 0 12/19/2022 12/29/2022 Active Comment on above: Apply 1 application to affected area three times a day for 10 days. Apply sparingly to area for rash/itching. Completed/Discontinued Medications Medication Drug Class(es) Dates Sig (Normalized) Sig (Original) azelastine hydrochloride 0.137 mg/actuat metered dose nasal spray (5 sources) Histamine-1 Receptor Antagonist Start: 06-30-2021 End: 08-05-2021 take 1 spray(s) nasal route twice daily azelastine (ASTELIN, ASTEPRO) 0.1% nasal spray Indications: COVID-19 virus infection , Post-nasal drainage Use 1 [place] in each nostril twice daily. 30 mL 06/30/2021 08/05/2021 Discontinued Comment on above: Use 1 [place] in each nostril twice daily. cetirizine hydrochloride 10 mg oral tablet (16 sources) Histamine-1 Receptor Antagonist Start: 01-18-2023 End: 04-24-2024 take 1 tablet by mouth once daily cetirizine (ZYRTEC) 10 mg tablet Take 1 tablet by mouth once daily. 30 tablet 01/18/2023 04/24/2024 Discontinued Comment on above: Take 1 tablet by alex th once daily. cyclobenzaprine hydrochloride 10 mg oral tablet (7 sources) Muscle Relaxant Start: 10-21-2021 End: 07-12-2022 take 1 tablet by mouth at bedtime as needed for pain cyclobenzaprine (FLEXERIL) 10 mg tablet Indications: Cervicalgia , Tension headache Take 1 tablet by mouth at bedtime as needed for pain (neck pain). 30 tablet 0 10/21/2021 07/12/2022 Discontinued Comment on above: Take 1 tablet by alex th at bedtime as needed for pain (neck pain). Ethinyl Estradiol / norgestimate (20 sources) Progestin, Estrogen Start: 04-24-2024 End: 05-16-2024 take 1 tablet by mouth once daily norgestimate 0.25 mg-ethinyl estradiol 35 mcg (SPRINTEC) 0.25-35 mg-mcg per tablet Indications: Abnormal uterine bleeding (AUB) , Provided repeat prescription for oral contraceptive Take 1 tablet by mouth once daily. 84 tablet 4 04/24/2024 05/16/2024 Discontinued Start: 04-24-2024 take 1 tablet by alex th once daily norgestimate 0.25 mg-ethinyl estradiol 35 mcg (SPRINTEC) 0.25-35 mg-mcg per tablet Indications: Abnormal uterine bleeding (AUB) , Provided repeat prescription for oral contraceptive Take 1 tablet by mouth once daily. 84 tablet 4 04/24/2024 Active Start: 04-24-2024 take 1 tablet by alex th once daily norgestimate 0.25 mg-ethinyl estradiol 35 mcg (SPRINTEC) 0.25-35 mg-mcg per tablet Indications: Provided repeat prescription for oral contraceptive Take 1 tablet by mouth once daily. 84 tablet 4 04/24/2024 Active Start: 03-13-2023 End: 04-24-2024 take 1 tablet by mouth once daily norgestimate 0.25 mg-ethinyl estradiol 35 mcg (SPRINTEC) 0.25-35 mg-mcg per tablet Indications: Surveillance for control, oral contraceptives Take 1 tablet by mouth once daily. 84 tablet 4 03/13/2023 04/24/2024 Discontinued Start: 03-13-2023 take 1 tablet by alex th once daily norgestimate 0.25 mg-ethinyl estradiol 35 mcg (SPRINTEC) 0.25-35 mg-mcg per tablet Indications: Surveillance for control, oral contraceptives Take 1 tablet by mouth once daily. 84 tablet 4 03/13/2023 Active Start: 11-16-2022 End: 03-13-2023 take 1 tablet by mouth once daily norgestimate 0.25 mg-ethinyl estradiol 35 mcg (SPRINTEC) 0.25-35 mg-mcg per tablet Indications: Surveillance for control, oral contraceptives Take 1 tablet by mouth once daily. 84 tablet 3 11/16/2022 03/13/2023 Discontinued Start: 11-16-2022 take 1 tablet by alex th once daily norgestimate 0.25 mg-ethinyl estradiol 35 mcg (SPRINTEC) 0.25-35 mg-mcg per tablet Indications: Surveillance for control, oral contraceptives Take 1 tablet by mouth once daily. 84 tablet 3 11/16/2022 Active Start: 11-21-2021 End: 11-16-2022 take 1 tablet by mouth once daily norgestimate 0.25 mg-ethinyl estradiol 35 mcg (SPRINTEC) 0.25-35 mg-mcg per tablet Indications: Surveillance for control, oral contraceptives Take 1 tablet by mouth once daily. 84 tablet 1 11/21/2021 11/16/2022 Discontinued Start: 11-21-2021 take 1 tablet by alex th once daily norgestimate 0.25 mg-ethinyl estradiol 35 mcg (SPRINTEC) 0.25-35 mg-mcg per tablet Indications: Surveillance for control, oral contraceptives Take 1 tablet by mouth once daily. 84 tablet 1 11/21/2021 Active Start: 02-14-2021 End: 11-21-2021 take 1 tablet by mouth once daily norgestimate 0.25 mg-ethinyl estradiol 35 mcg (SPRINTEC) 0.25-35 mg-mcg per tablet Indications: Surveillance for control, oral contraceptives Take 1 tablet by mouth once daily. 84 tablet 3 02/14/2021 11/21/2021 Discontinued Start: 02-14-2021 take 1 tablet by alex th once daily norgestimate 0.25 mg-ethinyl estradiol 35 mcg (SPRINTEC) 0.25-35 mg-mcg per tablet Indications: Surveillance for control, oral contraceptives Take 1 tablet by mouth once daily. 84 tablet 3 02/14/2021 Active Start: 09-11-2019 End: 05-22-2024 Norgestimate-Ethinyl Estradi ol 1 EACH tablet Discontinued 1 NMA PO DAILY September 11, 2019 12:00am May 22, 2024 8:50am Start: 09-11-2019 Norgestimate-E thinyl Estradiol 1 EACH tablet Active 1 NMA PO DAILY September 11, 2019 12:00am Start: 09-11-2019 Norgestimate-E thinyl Estradiol Active 1 EACH PO DAILY September 11, 2019 12:00am Start: 09-11-2019 Norgestimate-E thinyl Estradiol Active 1 EACH PO DAILY September 10, 2019 11:00pm Comment on above: Take 1 tablet by [facility] once daily. fluticasone propionate 0.05 mg/actuat metered dose nasal spray (20 sources) Corticosteroid Start: 02-18-19 End: 05-28-19 take 2 spray(s) by mouth once daily fluticasone (FLONASE) 50 mcg/actuation nasal spray Indications: Sinobronchitis Use 2 Sprays in each nostril once daily. Rinse mouth after use. 1 Each 02/19/2024 05/27/2024 Discontinued ipratropium bromide 0.042 mg/actuat metered dose nasal spray (10 sources) Anticholinergic Start: 03-09-19 End: 09-26-19 take 1 spray(s) nasal route three times daily ipratropium bromide (ATROVENT) 42 mcg (0.06 %) nasal spray Indications: URI, acute Use 1 [place] in each nostril three times daily for 7 days. 15 mL 0 03/09/2022 09/25/2022 Discontinued Comment on above: Use 1 [place] in each nostril three times daily for 7 days. 2 ml ketorolac tromethamine 30 mg/ml injection (3 sources) Nonsteroidal Anti-inflammatory Drug, Cyclooxygenase Inhibitor Start: 09-24-19 End: 09-24-19 keTORolac 60 mg injection (Toradol) Start: 02-02-2022 End: 02-02-2022 keTORolac 60 mg injection (T ORADOL) Start: 10-21-2021 End: 10-21-2021 keTORolac 60 mg injection (T ORADOL) lamoTRIgine 100 mg oral tablet (8 sources) Mood Stabilizer, Anti-epileptic Agent Start: 08-02-2022 End: 09-25-2022 take 1 tablet by mouth once daily lamoTRIgine (LAMICTAL) 100 mg tablet Indications: Anxiety Take 1 tablet by mouth once daily. 30 tablet 2 08/02/2022 09/25/2022 Discontinued Start: 07-12-2022 End: 08-02-2022 take 1 tablet by mouth once daily lamoTRIgine (LAMICTAL) 25 mg tablet Indications: Anxiety Take 1 tablet by mouth once daily. 30 tablet 2 07/12/2022 08/02/2022 Discontinued Comment on above: Take 1 tablet by alex once daily. lidocaine hydrochloride 20 mg/ml mucous membrane topical solution (10 sources) Antiarrhythmic, Amide Local Anesthetic Start: 05-24-19 End: 07-01-19 lidocaine viscous (LIDOCAINE VISCOUS) 2 % solution Indications: Pharyngitis, unspecified etiology Take 10 mL by mouth every 4 hours as needed for pain. 100 mL 0 05/23/2021 06/30/2021 Discontinued (Course of therapy completed) Comment on above: Take 10 mL by mouth every 4 hours as needed for pain. methylPREDNISolone (15 sources) Corticosteroid Start: 04-20-19 End: 04-26-19 methylPREDNISolone (MEDROL, ASHLEY,) 4 mg Dose-Pack As instructed per package 21 tablet 04/19/2024 04/25/2024 Start: 04-19-2024 End: 04-25-2024 methylPREDNISolone (MEDROL, ASHLEY,) 4 mg Dose-Pack As instructed per package 21 tablet 04/19/2024 04/25/2024 Active Start: 05-23-2021 End: 06-30-2021 methylPREDNISolone (MEDROL, ASHLEY,) 4 mg Dose-Pack Indications: Pharyngitis, unspecified etiology As instructed per package 1 Package 0 05/23/2021 06/30/2021 Discontinued (Course of therapy completed) Start: 05-23-2021 methylPREDNISo lone (MEDROL, ASHLEY,) 4 mg Dose-Pack Indications: Pharyngitis, unspecified etiology As instructed per package 1 Package 0 05/23/2021 Active Comment on above: As instructed per judson venegas miSOPROStol 0.2 mg oral tablet (11 sources) Prostaglandin E1 Analog Start: 08-19-19 End: 12-27-19 miSOPROStol (CYTOTEC) 200 mcg tablet Insert 2 tablets vaginally night prior to IUD and 2 tablets morning of procedure. Each dose should be in vagina for 6-8 hours. 4 tablet 0 09/26/2022 12/26/2022 Discontinued Comment on above: Insert 2 tablets vag inally night prior to IUD and 2 tablets morning of procedure. Each dose should be in vagina for 6-8 hours. oxyCODONE hydrochloride 5 mg oral tablet (6 sources) Opioid Agonist Start: 08-07-19 End: 08-12-19 take 1 tablet by mouth every four hours as needed for pain Oxycodone 5 MG tablet Discontinued 5 mg PO EVERY 4 HOURS NEEDED as needed for severe pain 15 5 August 06, 2018 August 10, 2018 12:00am August 11, 2018 12:09am predniSONE 10 mg oral tablet (9 sources) Start: 02-03-20 End: 07-13-19 take 4 tablets by mouth once daily, then take 3 tablets by mouth once daily, then take 2 tablets by mouth once daily, then take 1 tablet by mouth once daily predniSONE (DELTASONE) 10 mg tablet Indications: Acute midline low back pain without sciatica TAKE BY MOUTH 4 TABLETS DAILY FOR 2 DAYS, THEN 3 TABLETS DAILY FOR 2 DAYS, THEN 2 TABLETS DAILY FOR 2 DAYS, THEN 1 TABLET DAILY FOR 2 DAYS. 20 tablet 0 02/02/2022 07/12/2022 Discontinued Start: 07-27-2021 End: 08-01-2021 take 2 tablets by mouth once daily predniSONE (DELTASONE) 20 mg tablet Take 2 tablets by mouth once daily for 5 days. 10 tablet 0 07/27/2021 08/01/2021 Active Start: 05-29-2021 End: 06-07-2021 predniSONE (DELTASONE) 10 mg tablet Indications: Bronchitis Take 4 tabs daily for 3 days, then 2 tabs daily for 3 days, then 1 tab daily for 3 days with food. 21 tablet 0 05/29/2021 06/07/2021 Active Comment on above: Take 4 tabs daily fo r 3 days, then 2 tabs daily for 3 days, then 1 tab daily for 3 days with food. Take 2 tablets by mo uth once daily for 5 days. TAKE BY MOUTH 4 TABL ETS DAILY FOR 2 DAYS, THEN 3 TABLETS DAILY FOR 2 DAYS, THEN 2 TABLETS DAILY FOR 2 DAYS, THEN 1 TABLET DAILY FOR 2 DAYS. Mjaezvzo-Oa-Ylk-Fe- FA ( VITAMIN) tab (17 sources) End: 08-05-2021 take 1 tablet by mouth once Ygpzqgcw-Af-Chi-Fe-FA ( VITAMIN) tab Take 1 tablet by mouth. 08/05/2021 Discontinued End: 08-05-2021 take 1 tablet by mouth once Hnblnpur-Sw-Qbk-Fe-FA ( VITAMIN) tab Take 1 tablet by mouth. 0 08/05/2021 Discontinued take 1 tablet by alex th once Ddqmwhvi-Ij-Wwi-Fe-FA ( VITAMIN) tab Take 1 tablet by mouth. 0 Active Comment on above: Take 1 tablet by alex th. Problems Active Problems Problem Classification Problem Date Documented Da te Episodic/Chronic Abdominal pain (7 sources) Tenderness of right upper quadrant of abdomen; Translations: [Right upper quadrant abdominal tenderness] Episodic Anxiety disorders (20 sources) Anxiety; Translations: [Anxiety disorder, unspecified] Onset: 9 04-24-2018 Chronic Contraceptive and procreative management (3 sources) Oral contraception; Translations: [Encounter for surveillance of contraceptive pills] 11-16-2022 Episodic Diseases of white blood cells (6 sources) Leukocytosis; Translations: [Elevated white blood cell count, unspecified] 04-04-2021 Chronic Disorders of lipid metabolism (2 sources) Dyslipidemia; Translations: [Hyperlipidemia, unspecified] 11-16-2022 Chronic Esophageal disorders (2 sources) Gastroesophageal reflux disease; Translations: [Gastro-esophageal reflux disease without esophagitis] Onset: 5 09-29-2024 Chronic Genitourinary symptoms and ill-defined conditions (1 source) Foul smelling urine; Translations: [Unspecified abnormal findings in urine] 12-20-2022 Episodic Headache; including migraine (1 source) Tension-type headache; Translations: [Tension-type headache, unspecified, not intractable] Chronic Headache; including migraine (2 sources) Headache; Translations: [Headache, unspecified headache type] Episodic Immunizations and screening for infectious disease (2 sources) Suspected disease caused by 2019nCoV; Translations: [Suspected COVID-19 virus infection] Episodic Intestinal infection (2 sources) Viral gastroenteritis; Translations: [Viral intestinal infection, unspecified] Onset: 5 10-01-2024 Episodic Malaise and fatigue (2 sources) Fatigue; Translations: [Other fatigue] Episodic Menstrual disorders (2 sources) Secondary amenorrhea; Translations: [Secondary amenorrhea] Onset: 5 04-01-2024 Chronic Mood disorders (20 sources) Depressive disorder; Translations: [Other specified depressive episodes] Onset: 5 11-16-2008 Chronic Mood disorders (1 source) Mood disorders; Translations: [Anxiety and depression] Onset: Nausea and vomiting (1 source) Nausea; Translations: [Nausea] Episodic Nutritional deficiencies (9 sources) Vitamin D deficiency; Translations: [Vitamin D deficiency, unspecified] Onset: Chronic Other aftercare (1 source) Long-term current use of drug therapy; Translations: [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 salvage winder (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 therapy] 05-27-2024 Episodic Other aftercare (1 source) Other salvage winder (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 therapy; Translations: [Encounter for long-term current use of medication] Onset: Episodic Other bone disease and musculoskeletal deformities (18 sources) Segmental and somatic dysfunction; Translations: [Segmental and somatic dysfunction of lumbar region] 08-26-2019 Episodic Other complications of ; puerperium affecting management of mother (2 sources) Large for gestation age fetus 08-03-2018 Episodic Other connective tissue disease (1 source) Fibromyalgia; Translations: [Fibromyalgia] 05-16-2024 Episodic Other connective tissue disease (1 source) History of back pain; Translations: [Personal history of other diseases of the musculoskeletal system and connective tissue] 06-17-2024 Episodic Other female genital disorders (7 sources) Abnormal uterine bleeding; Translations: [Abnormal uterine and vaginal bleeding, unspecified] 04-24-2024 Chronic Other female genital disorders (2 sources) Dysfunctional uterine bleeding Chronic Other female genital disorders (1 source) Abnormal uterine bleeding due to endometrial polyp; Translations: [Abnormal uterine and vaginal bleeding, unspecified] 05-16-2024 Chronic Other female genital disorders (3 sources) Abnormal uterine and vaginal bleeding, unspecified; Translations: [Abnormal uterine and vaginal bleeding, unspecified] Onset: 5 Chronic Other female genital disorders (1 source) Labial cyst; Translations: [Vulvar cyst] Episodic Other female genital disorders (1 source) Vaginal discharge; Translations: [Other specified noninflammatory disorders of vagina] 12-20-2022 Episodic Other female genital disorders (1 source) Vaginal discomfort; Translations: [Unspecified condition associated with female genital organs and menstrual cycle] 06-22-2023 Episodic Other female genital disorders (1 source) Polyp of corpus uteri; Translations: [Polyp of corpus uteri] 06-17-2024 Episodic Other gastrointestinal disorders (1 source) Diarrhea; Translations: [Diarrhea, unspecified] Episodic Other lower respiratory disease (5 sources) Cough; Translations: [Post-COVID chronic cough] Episodic Other lower respiratory disease (1 source) Cough; Translations: [Cough] 07-27-2021 Episodic Other lower respiratory disease (2 sources) Snoring; Translations: [Snoring] 04-01-2024 Episodic Other nervous system disorders (1 source) Other chronic pain; Translations: [Chronic midline low back pain with left-sided sciatica] Onset: 5 Chronic Other nervous system disorders (1 source) Numbness of foot ; Translations: [Anesthesia of skin] 04-01-2024 Episodic Other nervous system disorders (1 source) Numbness of hand; Translations: [Anesthesia of skin] 04-01-2024 Episodic Other nervous system disorders (1 source) Numbness of lower limb ; Translations: [Anesthesia of skin] 04-01-2024 Episodic Other nutritional; endocrine; and metabolic disorders (2 sources) Obesity, unspecified; Translations: [Obesity, unspecified] Onset: 4 Chronic Other nutritional; endocrine; and metabolic disorders (4 sources) Obesity caused by energy imbalance; Translations: [Class 2 obesity due to excess calories without serious comorbidity with body mass index (BMI) of 37.0 to 37.9 in adult] Onset: 5 09-29-2024 Chronic Other nutritional; endocrine; and metabolic disorders (1 source) Other obesity due to excess calories; Translations: [Class 2 obesity due to excess calories without serious comorbidity with body mass index (BMI) of 37.0 to 37.9 in adult] Onset: Chronic Other nutritional; endocrine; and metabolic disorders (2 sources) Body mass index (BMI) 37.0-37.9, adult; Translations: [Class 2 obesity due to excess calories without serious comorbidity with body mass index (BMI) of 37.0 to 37.9 in adult] Onset: Chronic Other screening for suspected conditions (not mental disorders or infectious disease) (1 source) Endometrium thickened; Translations: [Abnormal findings on diagnostic imaging of other specified body structures] 05-16-2024 Chronic Other screening for suspected conditions (not mental disorders or infectious disease) (13 sources) Patient encounter status; Translations: [Encounter for screening for lipoid disorders] Episodic Other skin disorders (3 sources) Eruption; Translations: [Rash and other nonspecific skin eruption] 12-19-2022 Episodic Other upper respiratory disease (2 sources) Pain in throat; Translations: [Pain in throat] Episodic Other upper respiratory disease (1 source) Congestion of nasal sinus; Translations: [Nasal congestion] 04-24-2024 Episodic Other upper respiratory infections (3 sources) Bacterial sinusitis; Translations: [Chronic sinusitis, unspecified] Onset: Chronic Other upper respiratory infections (12 sources) Pharyngitis; Translations: [Acute pharyngitis, unspecified] Onset: Episodic Otitis media and related conditions (4 sources) Acute left otitis media; Translations: [Otitis media, unspecified, left ear] Onset: 5 06-14-2024 Episodic Residual codes; unclassified (2 sources) Obstructive sleep apnea syndrome; Translations: [Obstructive sleep apnea (adult) (pediatric)] Chronic Residual codes; unclassified (1 source) Obstructive sleep apnea (adult) (pediatric); Translations: [Mild obstructive sleep apnea] Onset: Chronic Residual codes; unclassified (2 sources) Treatment not available; Translations: [Procedure and treatment not carried out for other reasons] Episodic Residual codes; unclassified (1 source) Procedure not done; Translations: [Procedure and treatment not carried out for other reasons] Episodic Skin and subcutaneous tissue infections (2 sources) Cellulitis of skin; Translations: [Cellulitis, unspecified] 12-20-2022 Episodic Spondylosis; intervertebral disc disorders; other back problems (6 sources) Disorder of lumbar disc; 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, lumbar region] 02-06-2019 Chronic Comment on above: L1/L2 bulge with anna ular tear Syncope (1 source) Near syncope; Translations: [Syncope and collapse] 10-01-2024 Episodic Unclassified (4 sources) Large for gestation age fetus; Translations: [Large for gestational age fetus] 08-26-2019 Unclassified (1 source) Class 2 obesity due to excess calories without serious comorbidity with body mass index (BMI) of 37.0 to 37.9 in adult; Translations: [Class 2 obesity due to excess calories without serious comorbidity with body mass index (BMI) of 37.0 to 37.9 in adult] Onset: 5 Unclassified (1 source) Class 2 obesity with body mass index (BMI) of 37.0 to 37.9 in adult, unspecified obesity type, unspecified whether serious comorbidity present; Translations: [Class 2 obesity with body mass index (BMI) of 37.0 to 37.9 in adult, unspecified obesity type, unspecified whether serious comorbidity present] Onset: 5 Unclassified (1 source) Acute cough; Translations: [Acute cough] Onset: 5 Viral infection (1 source) Disease caused by 2019-nCoV; Translations: [COVID-19] Episodic Past or Other Problems Problem Classification Problem Date Documented Date Episodic/Chronic Administrative/social admission (2 sources) Dietary counseling and surveillance; Translations: [Dietary counseling and surveillance] Onset: 11-06-2023 Episodic Chronic obstructive pulmonary disease and bronchiectasis (2 sources) Bronchitis; Translations: [Bronchitis, not specified as acute or chronic] Onset: 02-19-2024 Episodic Coma; stupor; and brain damage (3 sources) Daytime somnolence; Translations: [Somnolence] Onset: 05-08-2024 04-01-2024 Episodic Other complications of (20 sources) Excessive growth affecting management of mother; Translations: [Maternal care for excessive growth, third trimester, not applicable or unspecified] Onset: 07-22-2018 Resolved: 08-26-2019 08-26-2019 Episodic Other connective tissue disease (20 sources) Muscle pain; Translations: [Myalgia and myositis, unspecified] Onset: 08-20-2007 06-12-2008 Episodic Other female genital disorders (2 sources) Polyp of corpus uteri; Translations: [Polyp of corpus uteri] Onset: 05-21-2024 05-21-2024 Episodic Other lower respiratory disease (1 source) Snoring; Translations: [Snoring] Onset: 05-08-2024 Episodic Other nervous system disorders (20 sources) Paresthesia of lower extremity; Translations: [Anesthesia of skin] Onset: 05-28-2018 05-28-2018 Episodic Other nervous system disorders (4 sources) Anesthesia of skin; Translations: [Numbness and tingling of lower extremity] Onset: 05-28-2018 Episodic Other nervous system disorders (1 source) Paresthesia of skin; Translations: [Numbness and tingling of lower extremity] Onset: 05-28-2018 Episodic Other nutritional; endocrine; and metabolic disorders (20 sources) Obesity; Translations: [Obesity, unspecified] Onset: 09-19-2021 Resolved: 09-29-2024 Chronic Polyhydramnios and other problems of amniotic cavity (20 sources) Polyhydramnios with problem; Translations: [Polyhydramnios, third trimester, not applicable or unspecified] Onset: 07-22-2018 Resolved: 08-26-2019 08-26-2019 Episodic Residual codes; unclassified (20 sources) At risk for depressed mood during period; Translations: [Other specified personal risk factors, not elsewhere classified] Onset: 04-24-2018 Resolved: 08-26-2019 08-26-2019 Episodic Residual codes; unclassified (20 sources) Gestation period, 29 weeks; Translations: [29 weeks gestation of ] Onset: 05-28-2018 Resolved: 08-26-2019 08-26-2019 Episodic Screening and history of mental health and substance abuse codes (20 sources) H/O: depression; Translations: [Personal history of other mental and behavioral disorders] Onset: 12-06-2017 Resolved: 08-26-2019 08-26-2019 Episodic Spondylosis; intervertebral disc disorders; other back problems (20 sources) Neck pain; Translations: [Cervicalgia] Onset: 01-01-2019 Resolved: 08-26-2019 Episodic Results Test Name Value Interpretation Reference Range [facility] 25-hydroxyvitamin D3 [Mass/Vol] 47.2 ng/mL Normal 31.0-80.0 [facility] Comment on above: Order Comment: Speci men Type: BLOOD SPECIMENOrdering Facility: [facility] Address: [address] [place] [address] Performed By: #### 1 989-3 ####[facility] LABCLIA [id number] [place] [address] [place] CBC panel Auto (Bld)on 09-29 Erythrocyte distribution width (RBC) [Ratio] 18.6 % High 11.5-15.0 [facility] Comment on above: Order Comment: Speci men Type: BLOOD SPECIMENOrdering Facility: [facility] Address: [address] [place] [address] Performed By: #### 5 8410-2 ####[facility] LABCLIA [id number] [place] [address] [place] Hematocrit (Bld) [Volume fraction] 33.8 % Low 36.0-46.0 [facility] Comment on above: Order Comment: Speci men Type: BLOOD SPECIMENOrdering Facility: [facility] Address: [address] [place] [address] Performed By: #### 5 8410-2 ####[facility] LABCLIA [id number] [place] [id number] [place] Hemoglobin (Bld) [Mass/Vol] 10.6 g/dL Low 11.5-15.5 [facility] Comment on above: Order Comment: Speci men Type: BLOOD SPECIMENOrdering Facility: [facility] Address: [address] [place] [address] Performed By: #### 5 8410-2 ####[facility] LABCLIA [id number] [place] [address] [place] MCH (RBC) [Entitic mass] 27.1 pg Normal 26.0-34.0 [facility] Comment on above: Order Comment: Speci men Type: BLOOD SPECIMENOrdering Facility: [facility] Address: [address] [place] [address] Performed By: #### 5 8410-2 ####[facility] [id number] [place] [address] [place] MCHC (RBC) [Mass/Vol] 31.4 g/dL Normal 30.5-36.0 [facility] Comment on above: Order Comment: Speci men Type: BLOOD SPECIMENOrdering Facility: [facility] Address: [address] [place] [address] Performed By: #### 5 8410-2 ####[facility] [id number] [address] [place] MCV (RBC) [Entitic vol] 86.4 fL Normal 80.0-100.0 C [facility] Comment on above: Order Comment: Speci men Type: BLOOD SPECIMENOrdering Facility: [facility] Address: [address] [place] [address] Performed By: #### 5 8410-2 ####[facility] [id number] [place] [address] [place] Nucleated RBC (Bld) [#/Vol] 10*3/uL Normal <0.01 [facility] Comment on above: Order Comment: Speci men Type: BLOOD SPECIMENOrdering Facility: [facility] Address: [address] [place] [address] Performed By: #### 5 8410-2 ####[facility] [id number] [place] [address] [place] Platelet mean volume (Bld) [Entitic vol] 10.6 fL Normal 9.0-12.7 [facility] Comment on above: Order Comment: Speci men Type: BLOOD SPECIMENOrdering Facility: [facility] Address: [address] [place] [address] Performed By: #### 5 8410-2 ####[facility] LABCLIA [id number] [place] [address] [place] Platelets (Bld) [#/Vol] 409 10*3/uL High 150-400 [facility] Comment on above: Order Comment: Speci men Type: BLOOD SPECIMENOrdering Facility: [facility] Address: [address] [place] [address] Performed By: #### 5 8410-2 ####[facility] LABIA [id number] [place] [address] [place] RBC (Bld) [#/Vol] 3.91 10*6/uL Normal 3.90-5.20 [facility] Comment on above: Order Comment: Speci men Type: BLOOD SPECIMENOrdering Facility: [facility] Address: [address] [place] [address] Performed By: #### 5 8410-2 ####[facility] LABIA [id number] [place] [address] [place] WBC (Bld) [#/Vol] 10.97 10*3/uL Normal 3.70-11.00 [facility] Comment on above: Order Comment: Speci men Type: BLOOD SPECIMENOrdering Facility: [facility] Address: [address] [place] [address] Performed By: #### 5 8410-2 ####[facility] LABIA [id number] [place] [id number] [place] CNOVon 09-29-2024 CNOV Office Visit (INTMWS ) SASHA RACHEL ([id number]) 1985 F Date Time Provider Department 09/29/24 8:00 AM HUNG RIVERO INTMWS During your visit today, we recorded the following information about you: Temperature Pulse Respiration Blood pressure 97.4 degrees 78/minute 12/minute 130/64 Weight Height 111.4 kg 1.727 m Hung Rivero MD 10/01/2024 5:23 PM Addendum Subjective Sasha Rachel is a 39 year old female. HPI Sasha Rachel is a 39-year-old female, with a history of anxiety, presenting for an annual physical exam and evaluation of persistent symptoms following treatment for an ear infection. Sasha reports persistent symptoms following treatment for an ear infection, including fatigue, myalgias, chills, and cephalalgia. She has been experiencing significant fatigue for approximately one week, which she attributes to a possible fever. She also reports myalgias and chills, although she has not recorded a fever. She has been experiencing cephalalgia, which she describes as a tight sensation. She was treated at [facility] with Augmentin, which she believes is causing gastrointestinal discomfort, including diarrhea. She has a history of taking amoxicillin without issues. She also reports right-sided otalgia, which has not improved with the current treatment. She denies sinus congestion or cough but reports right-sided facial pain and dentalgia. She also reports chest pain, which she initially thought was acid reflux and radiated to the right side of her neck. The chest pain has since resolved, but she now reports left-sided chest pain. She has a history of acid reflux and has a prescription for omeprazole, which she has not been taking regularly. She denies any changes in bowel movements. Sasha has been taking vitamin D supplements regularly and reports a weight loss of 10 pounds. She attributes her weight loss to using the [employer] arsh and [employer]. She also reports a history of mild sleep apnea, which she hopes will improve with weight loss. She reports getting approximately 6-7 hours of sleep per night, although her sleep is often interrupted. She is currently taking sertraline and hydroxyzine for anxiety and panic attacks, respectively. She also has a prescription for Zofran, which she would like to refill. S She denies any changes in family history. PAST MEDICAL HISTORY Diagnosis Date Abnormal Pap smear of cervix 2004 Allergic rhinitis due to other allergen Depressive disorder, not elsewhere classified Fibromyalgia Food poisoning 2014 Irritable bowel syndrome Myalgia and myositis, unspecified Other chronic sinusitis Current Outpatient Medications Medication Sig acetaminophen (TYLENOL) 325 mg tablet Take 650 mg by mouth every 6 hours as needed. omeprazole (PRILOSEC) 20 mg capsule Take 1 capsule by mouth daily before breakfast. albuterol HFA (PROVENTIL HFA, VENTOLIN HFA) 90 mcg/actuation inhaler Inhale 2 Puffs as instructed every 6 hours as needed for wheezing/shortness of breath. cholecalciferol (VITAMIN D3) 5,000 unit tab Take 1 tablet by mouth once daily. Magnesium 250 mg tab Take 2 tablets by mouth once daily. for anxiety / depression ibuprofen (MOTRIN) 200 mg tablet Take 4 tablets by mouth every 8 hours as needed for pain (headache). Take with food. albuterol HFA (PROAIR HFA) 90 mcg/actuation inhaler Inhale 2 Puffs as instructed every 6 hours as needed. cefUROXime (CEFTIN) 500 mg tablet Take 1 tablet by mouth two times a day for 7 days.--added today hydrOXYzine HCl (ATARAX) 10 mg tablet Take 1-2 tablets by mouth three times a day as needed for anxiety. ondansetron orally disintegrating (ZOFRAN ODT) 4 mg disintegrating tablet Take 1 tablet by mouth every 6 hours as needed for nausea/vomiting. sertraline (ZOLOFT) 100 mg tablet Take 1 tablet by mouth once daily. Dose change, take 1 daily No current facility-administered medications for this visit. ALLERGIES Allergen Reactions Mold Other: See Comments Seasonal Allergies Other: See Comments FAMILY HISTORY Problem Relation Age of Onset Breast Cancer Mother other (hypercholesterolemia ) Mother diet controlled Obesity Mother other (hysterectomy) Mother Parkinson?s Disease Father Prostate Cancer Father Obesity Father other (overweight) Sister Heart Maternal Grandmother Obesity Maternal Grandmother Psychiatry Maternal Grandfather Obesity Maternal Grandfather Hypertension Paternal Grandmother Heart Paternal Grandmother Obesity Paternal Grandmother Heart Paternal Grandfather Obesity Paternal Grandfather Autism Son SOCIAL HISTORY[1] Review of Systems Objective BP 130/64 Pulse 78 Temp 36.3 ?C (97.4 ?F) (Temporal) Resp 12 Ht 172.7 cm (5' 8) Wt 111.4 kg (245 lb 9.5 oz) LMP 05/12/2024 (Within Days) SpO2 98% BMI 37.34 kg/m? Last 5 Encounter Wt Re (more content not included)... Normal [facility] Comprehensive metabolic 2000 panelon 09-29-2024 Albumin [Mass/Vol] 3.7 g/dL Low 3.9-4.9 [facility] Comment on above: Order Comment: Speci men Type: BLOOD SPECIMENOrdering Facility: [facility] Address: [address] [place] [address] Performed By: #### 2 4323-8 ####[facility] LABCLIA [id number] [place] [address] [place] ALP [Catalytic activity/Vol] 212 U/L High 34-123 [facility] Comment on above: Order Comment: Speci men Type: BLOOD SPECIMENOrdering Facility: [facility] Address: [address] [place] [address] Performed By: #### 2 4323-8 ####[facility] LABCLIA [id number] [place] [address] [place] ALT [Catalytic activity/Vol] 332 U/L High 7-38 [facility] Comment on above: Order Comment: Speci men Type: BLOOD SPECIMENOrdering Facility: [facility] Address: [address] [place] [address] Performed By: #### 2 4323-8 ####[facility] LABCLIA [id number] [place] [address] [place] Anion gap [Moles/Vol] 12 mmol/L Normal 8-15 [facility] Comment on above: Order Comment: Speci men Type: BLOOD SPECIMENOrdering Facility: [facility] Address: [address] [place], [place] [address] Performed By: #### 2 4323-8 ####[facility] LABCLIA [id number] [place] [id number] [place] AST [Catalytic activity/Vol] 116 U/L High 13-35 [facility] Comment on above: Order Comment: Speci men Type: BLOOD SPECIMENOrdering Facility: [facility] Address: [address] [place] [address] Performed By: #### 2 4323-8 ####[facility] LABCLIA [id number] [place] [id number] [place] Bilirubin [Mass/Vol] 0.2 mg/dL Normal 0.2-1.3 [facility] Comment on above: Order Comment: Speci men Type: BLOOD SPECIMENOrdering Facility: [facility] Address: [address] [place] [address] Performed By: #### 2 4323-8 ####[facility] LABCLIA [id number] [place] [id number] [place] Calcium [Mass/Vol] 8.7 mg/dL Normal 8.5-10.2 [facility] Comment on above: Order Comment: Speci men Type: BLOOD SPECIMENOrdering Facility: [facility] Address: [address] [place] [address] Performed By: #### 2 4323-8 ####[facility] LABCLIA [id number] [place] [id number] [place] Chloride [Moles/Vol] 107 mmol/L Normal 98-107 [facility] Comment on above: Order Comment: Speci men Type: BLOOD SPECIMENOrdering Facility: [facility] Address: [address] [place] [address] Performed By: #### 2 4323-8 ####[facility] LABCLIA [id number] [place] [id number] [place] CO2 [Moles/Vol] 21 mmol/L Low 22-30 [facility] Comment on above: Order Comment: Speci men Type: BLOOD SPECIMENOrdering Facility: [facility] Address: [address] [place] [address] Performed By: #### 2 4323-8 ####[facility] LABCLIA [id number] [facility] [place] [id number] [place] Creatinine [Mass/Vol] 0.70 mg/dL Normal 0.58-0.96 [facility] Comment on above: Order Comment: Speci men Type: BLOOD SPECIMENOrdering Facility: [facility] Address: [address] [place] [address] Performed By: #### 2 4323-8 ####[facility] LABCLIA [id number] [place] [address] [place] eGFRcr SerPlBld CKD-EPI 2020 113 mL/min/1.73m??? Normal >=60 [facility] Comment on above: Order Comment: Speci men Type: BLOOD SPECIMENOrdering Facility: [facility] Address: [address] [place] [address] Result Comment: Neda mated Glomerular Filtration Rate (eGFR) is calculated using the 2020 CKD-EPI creatinine equation. This equation utilizes serum creatinine, sex, and age as parameters. The creatinine assay has traceable calibration to isotope dilution-mass spectrometry. Refer to KDIGO guidelines for clinical interpretation. In patients with unstable renal function, e.g. those with acute kidney injury, the eGFR may not accurately reflect actual GFR. Performed By: #### 2 4323-8 ####[facility] LABCLIA [id number] [place] [id number] [place] Glucose [Mass/Vol] 88 mg/dL Normal 74-99 [facility] Comment on above: Order Comment: Speci men Type: BLOOD SPECIMENOrdering Facility: [facility] Address: [address] [place] [address] Result Comment: The [place] Diabetes Association (ADA) provides guidance for cutoff values for fasting glucose and random glucose. The ADA defines fasting as no caloric intake for at least 8 hours. Fasting plasma glucose results between 100 to 125 mg/dL indicate increased risk for diabetes (prediabetes). Fasting plasma glucose results greater than or equal to 126 mg/dL meet the criteria for diagnosis of diabetes. In the absence of unequivocal hyperglycemia, results should be confirmed by repeat testing. In a patient with classic symptoms of hyperglycemia or hyperglycemic crisis, random plasma glucose results greater than or equal to 200 mg/dL meet the criteria for diagnosis of diabetes. Reference: Standards of Medical Care in Diabetes 2016, [place] [employer]. Diabetes Care. 2016.39(Suppl 1). Performed By: #### 2 4323-8 ####[facility] LABCLIA [id number] [place] [address] [place] Potassium [Moles/Vol] 4.3 mmol/L Normal 3.7-5.1 [facility] Comment on above: Order Comment: Speci men Type: BLOOD SPECIMENOrdering Facility: [facility] Address: [address] [place] [address] Performed By: #### 2 4323-8 ####[facility] LABCLIA [id number] [place] [address] [place] Protein [Mass/Vol] 6.9 g/dL Normal 6.3-8.0 [facility] Comment on above: Order Comment: Speci men Type: BLOOD SPECIMENOrdering Facility: [facility] Address: [address] [place] [address] Performed By: #### 2 4323-8 ####[facility] LABCLIA [id number] [place] [id number] [place] Sodium [Moles/Vol] 140 mmol/L Normal 136-144 [facility] Comment on above: Order Comment: Speci men Type: BLOOD SPECIMENOrdering Facility: [facility] Address: [address] [place] [address] Performed By: #### 2 4323-8 ####[facility] LABCLIA [id number] [place] [id number] [place] Urea nitrogen [Mass/Vol] 16 mg/dL Normal 7-21 [facility] Comment on above: Order Comment: Speci men Type: BLOOD SPECIMENOrdering Facility: [facility] Address: [address] [place] [place] [address] Performed By: #### 2 4323-8 ####[facility] LABCLIA [id number] [place] [id number] [place] CNOVon 06-26-2024 CNOV Office Visit (INTMWS ) SASHA RACHEL ([id number]) 1985 F Date Time Provider Department 06/26/24 11:40 AM SHEFALI CARVAJAL INTMWS During your visit today, we recorded the following information about you: Pulse Respiration Blood pressure Weight 101/minute 16/minute 121/79 114 kg Shefali Carvajal APRN.DATABASE TECHNICIAN 06/26/2024 12:39 PM Signed SUBJECTIVE: There are no preventive care reminders to display for this patient. HPI Sasha Rachel is a 39 year old female. PMH significant for ACTIVE PROBLEM LIST Fibromyalgia Anxiety and Depression Anxiety Numbness and Tingling of Lower Extremity Class 2 Obesity With Body Mass Index (Bmi) of 38.0 to 38.9 in Adult Sasha is a 39-year-old female presenting with acute onset heartburn. Heartburn: - Onset during a recent vacation, following a strep throat and ear infection. - Describes pain as nagging and annoying, with episodes of increased severity. - Pain localized to the epigastric region, radiating to the throat. - Aggravated by forward bending and lying down; worse at night. - Denies regurgitation, nausea, emesis, or abdominal pain. - Taking Pepcid and Tums with minimal relief. - Avoiding acidic foods and drinks; following a bland diet. - Consumes minimal caffeine; denies alcohol and tobacco use. - Friend recommended omeprazole, but has not tried it yet. - Recent abnormal uterine bleeding s/p polypectomy 05/23/2024. Heartburn: present most of the time Reflux: not at night Abdominal pain: no Nausea: no Vomiting: no Diarrhea: after antibiotic Constipation: no BRBPR: no Black tarry: no ROS Constitutional: (+) sleep disturbance Ears/Nose/Mouth/Throa t: (+) sore throat Gastrointestinal: (+) heartburn, (+) diarrhea, (-) nausea, (-) vomiting, (-) abdominal pain, (-) bloody stool, (-) melena, (-) constipation Objective BP 121/79 Pulse 101 Resp 16 Wt 114 kg (251 lb 5.2 oz) LMP 05/12/2024 (Within Days) SpO2 97% BMI 38.21 kg/m? Physical Exam Vitals and nursing note reviewed. Constitutional: Appearance: Normal appearance. HENT: Head: Normocephalic and atraumatic. Right Ear: Ear canal normal. Left Ear: Tympanic membrane and ear canal normal. Eyes: Conjunctiva/sclera: Conjunctivae normal. Neck: Thyroid: No thyromegaly or thyroid tenderness. Vascular: Normal carotid pulses. No JVD. Cardiovascular: Rate and Rhythm: Normal rate and regular rhythm. Pulses: Carotid pulses are 2+ on the right side and 2+ on the left side. Radial pulses are 2+ on the right side and 2+ on the left side. Heart sounds: Normal heart sounds. Pulmonary: Effort: Pulmonary effort is normal. Breath sounds: Normal breath sounds. Abdominal: General: Bowel sounds are normal. Palpations: Abdomen is soft. Musculoskeletal: Right lower leg: No edema. Left lower leg: No edema. Skin: General: Skin is warm and dry. Neurological: General: No focal deficit present. Mental Status: She is alert and oriented to person, place, and time. ALLERGIES Allergen Reactions Mold Other: See Comments Seasonal Allergies Other: See Comments Medications acetaminophen (TYLENOL) 325 mg tablet Take 650 mg by mouth every 6 hours as needed. buPROPion XL (WELLBUTRIN XL) 150 mg 24 hr tablet Take 1 tablet by mouth once daily. albuterol HFA (PROVENTIL HFA, VENTOLIN HFA) 90 mcg/actuation inhaler Inhale 2 Puffs as instructed every 6 hours as needed for wheezing/shortness of breath. sertraline (ZOLOFT) 100 mg tablet Take 1 tablet by mouth once daily. Dose change, take 1 daily sod bicarb-sod chlor-neti pot (NEILMED NASAFLO) pkdv 1 Each by sinus irrigation route two times a day as needed (for sinus congestion and drainage). hydrOXYzine HCl (ATARAX) 10 mg tablet Take 1-2 tablets by mouth three times a day as needed for anxiety. ondansetron orally disintegrating (ZOFRAN ODT) 4 mg disintegrating tablet Take 1 tablet by mouth every 6 hours as needed for nausea/vomiting. cholecalciferol (VITAMIN D3) 5,000 unit tab Take 1 tablet by mouth once daily. Magnesium 250 mg tab Take 2 tablets by mouth once daily. for anxiety / depression ibuprofen (MOTRIN) 200 mg tablet Take 4 tablets by mouth every 8 hours as needed for pain (headache). Take with food. albuterol HFA (PROAIR HFA) 90 mcg/actuation inhaler Inhale 2 Puffs as instructed every 6 hours as needed. omeprazole (PRILOSEC) 20 mg capsule Take 1 capsule by mouth daily before breakfast. sucralfate (CARAFATE) 1 gram tablet Take 1 tablet by mouth before meals and at bedtime for 14 days. norethindrone (AYGESTIN) 5 mg tablet Take 1 tablet by mouth as directed. 1 tablet 3 times daily until bleeding stops then twice daily for 2 days then 1 tablet daily until surgery (Patient not taking: Reported on 06/26/2024) PAST MEDICAL HISTORY Diagnosis Date Abnormal Pap smear of cervix 2004 Allergic rhinitis due to other allergen D (more content not included)... Normal [facility] CNOVon 06-14-2024 CNOV Office Visit (UCWSTR ) SASHA RACHEL ([id number]) 1985 F Date Time Provider Department 06/14/24 12:30 PM BRIDGET REYES UCWSTR During your visit today, we recorded the following information about you: Temperature Pulse Respiration Blood pressure 98.2 degrees 82/minute 18/minute 112/76 Weight 115.2 kg Bridget Reyes APRN.CNP 06/14/2024 12:43 PM Signed [facility] Subjective Sasha Rachel is a 39 year old female. Patient presents with: Earache: Entered by patient Ear Pain: Left ear pain x 1 day Patient came in with complaints of sore throat for about a week. Patient says her left ear started hurting today. Patient says it ear pain is getting worse. Patient denies any cough shortness of breath or other symptoms. The history is provided by the patient. No speech and language tutor was used. Ear Pain Associated symptoms include a sore throat. Review of Systems Constitutional: Negative. HENT: Positive for ear pain and sore throat. Eyes: Negative. Respiratory: Negative. Objective BP 112/76 Pulse 82 Temp 36.8 ?C (98.2 ?F) (Tympanic) Resp 18 Wt 115.2 kg (253 lb 15.5 oz) LMP 05/12/2024 (Within Days) SpO2 98% BMI 38.62 kg/m? Physical Exam Constitutional: Appearance: Normal appearance. HENT: Right Ear: Tympanic membrane, ear canal and external ear normal. Left Ear: Tympanic membrane is erythematous and bulging. Nose: Nose normal. Mouth/Throat: Mouth: Mucous membranes are moist. Pharynx: Oropharynx is clear. Eyes: Pupils: Pupils are equal, round, and reactive to light. Cardiovascular: Rate and Rhythm: Normal rate and regular rhythm. Heart sounds: Normal heart sounds. Pulmonary: Effort: Pulmonary effort is normal. Breath sounds: Normal breath sounds. Neurological: Mental Status: She is alert. PAST MEDICAL HISTORY Diagnosis Date Abnormal Pap smear of cervix 2005 Allergic rhinitis due to other allergen Depressive disorder, not elsewhere classified Fibromyalgia Food poisoning 2015 Irritable bowel syndrome Myalgia and myositis, unspecified Other chronic sinusitis PAST SURGICAL HISTORY Procedure Laterality Date DANDC, DIAG AND/OR THERAPEUTIC 05/23/2024 Hysteroscopy DANDC, polypectomy, Lilettta IUD insertion HYSTEROSCOPY BX ENDOMETRIUMAND/POLYPC W/WO DANDC 09/18/2019 hysteroscopy DANDC for AUP TONSILLECTOMY AND ADENOIDECTOMY AGE 12/1996 ALLERGIES Mold and Seasonal Allergies MEDICATIONS amoxicillin (AMOXIL) 875 mg tablet Take 1 tablet by mouth two times a day for 10 days. buPROPion XL (WELLBUTRIN XL) 150 mg 24 hr tablet Take 1 tablet by mouth once daily. norethindrone (AYGESTIN) 5 mg tablet Take 1 tablet by mouth as directed. 1 tablet 3 times daily until bleeding stops then twice daily for 2 days then 1 tablet daily until surgery albuterol HFA (PROVENTIL HFA, VENTOLIN HFA) 90 mcg/actuation inhaler Inhale 2 Puffs as instructed every 6 hours as needed for wheezing/shortness of breath. Brompheniramine-Pseud oeph-DM (BROMFED DM) 2-30-10 mg/5 mL syrup Take 5 mL by mouth four times a day as needed. sertraline (ZOLOFT) 100 mg tablet Take 1 tablet by mouth once daily. Dose change, take 1 daily benzonatate (TESSALON PERLE) 100 mg capsule Take 1-2 capsules by mouth three times a day as needed. sod bicarb-sod chlor-neti pot (NEILMED NASAFLO) pkdv 1 Each by sinus irrigation route two times a day as needed (for sinus congestion and drainage). hydrOXYzine HCl (ATARAX) 10 mg tablet Take 1-2 tablets by mouth three times a day as needed for anxiety. ondansetron orally disintegrating (ZOFRAN ODT) 4 mg disintegrating tablet Take 1 tablet by mouth every 6 hours as needed for nausea/vomiting. cholecalciferol (VITAMIN D3) 5,000 unit tab Take 1 tablet by mouth once daily. Magnesium 250 mg tab Take 2 tablets by mouth once daily. for anxiety / depression ibuprofen (MOTRIN) 200 mg tablet Take 4 tablets by mouth every 8 hours as needed for pain (headache). Take with food. albuterol HFA (PROAIR HFA) 90 mcg/actuation inhaler Inhale 2 Puffs as instructed every 6 hours as needed. FAMILY HISTORY Problem Relation Age of Onset Breast Cancer Mother other (hypercholesterolemia ) Mother diet controlled Obesity Mother other (hysterectomy) Mother Parkinson?s Disease Father Prostate Cancer Father Obesity Father other (overweight) Sister Heart Maternal Grandmother Obesity Maternal Grandmother Psychiatry Maternal Grandfather Obesity Maternal Grandfather Hypertension Paternal Grandmother Heart Paternal Grandmother Obesity Paternal Grandmother Heart Paternal Grandfather Obesity Paternal Grandfather Autism Son Social History Tobacco Use Smoking status: Never Smokeless tobacco: Never Vaping Use Vaping status: Never Used Substance Use Topics Alcohol use: Yes Comment: Occasionally, but not while Drug use: No (more content not included)... Normal [facility] CNPNon 05-29-2024 CNPN Telephone (OBGYWM) SASHA RACHEL ([id number]) 1985 F Date Time Provider Department 05/29/24 MARISABEL CRYSTAL OBGYWM During your visit today, we recorded the following information about you: Marisabel Crystal MD 05/29/2024 10:20 AM Signed Please notify patient that her pathology from [facility] was benign- c/w endocervical polyp. If no concerns does not need post op appt. Sujit Bass RN 05/29/2024 10:26 AM Signed Left message for patient to call office. ANGEL Salcedo Tara, RN 05/29/2024 12:03 PM Signed Pt notified and voiced understanding. Pt states bleeding has slowed down since [facility] and denies questions/concerns at this time. Bleeding precautions reviewed. Sujit Bass RN Allergies As of Date: 05/29/2024 Noted Allergy Reaction MOLD 09/18/2019 14 - Other: See Comments SEASONAL ALLERGIES 07/02/2020 14 - Other: See Comments Date Reviewed: 05/27/2024 Reviewed by: Meme Muro LPN - Fully Assessed Reason for Visit: Results [95] Prescriptions as of 05/29/2024 - buPROPion XL (WELLBUTRIN XL) 150 mg 24 hr tablet Take 1 tablet by mouth once daily. - norethindrone (AYGESTIN) 5 mg tablet Take 1 tablet by mouth as directed. 1 tablet 3 times daily until bleeding stops then twice daily for 2 days then 1 tablet daily until surgery - albuterol HFA (PROVENTIL HFA, VENTOLIN HFA) 90 mcg/actuation inhaler Inhale 2 Puffs as instructed every 6 hours as needed for wheezing/shortness of breath. - Brompheniramine-Pseud oeph-DM (BROMFED DM) 2-30-10 mg/5 mL syrup Take 5 mL by mouth four times a day as needed. - sertraline (ZOLOFT) 100 mg tablet Take 1 tablet by mouth once daily. Dose change, take 1 daily - benzonatate (TESSALON PERLE) 100 mg capsule Take 1-2 capsules by mouth three times a day as needed. - sod bicarb-sod chlor-neti pot (NEILMED NASAFLO) pkdv 1 Each by sinus irrigation route two times a day as needed (for sinus congestion and drainage). - hydrOXYzine HCl (ATARAX) 10 mg tablet Take 1-2 tablets by mouth three times a day as needed for anxiety. - ondansetron orally disintegrating (ZOFRAN ODT) 4 mg disintegrating tablet Take 1 tablet by mouth every 6 hours as needed for nausea/vomiting. - cholecalciferol (VITAMIN D3) 5,000 unit tab Take 1 tablet by mouth once daily. - Magnesium 250 mg tab Take 2 tablets by mouth once daily. for anxiety / depression - ibuprofen (MOTRIN) 200 mg tablet Take 4 tablets by mouth every 8 hours as needed for pain (headache). Take with food. - albuterol HFA (PROAIR HFA) 90 mcg/actuation inhaler Inhale 2 Puffs as instructed every 6 hours as needed. Problem List As Of Date 05/29/2024 Noted Resolved Fibromyalgia [KAT4791] 08/20/2007 Anxiety and depression [F41.9, F32.A] History of depression [Z86.59] 12/06/2017 08/26/2019 At risk for depression [Z91.89] 04/24/2018 08/26/2019 Anxiety [F41.9] 04/24/2018 Numbness and tingling of lower extremity [R20.0*05/28/2018 29 weeks gestation of [Z3A.29] 05/28/2018 08/26/2019 Excessive growth affecting management of *07/22/2018 08/26/2019 Polyhydramnios in third trimester [O40.3XX0] 07/22/2018 08/26/2019 Acute back pain with sciatica, left [M54.42] 01/01/2019 08/26/2019 Class 2 obesity with body mass index (BMI) of 3*09/19/2021 Encounter Status:Closed by SUJIT BASS on 05/29/24 [facility] CNOVon 05-27-2024 CNOV Office Visit (INTMWS ) SASHA RACHEL ([id number]) 1985 F Date Time Provider Department 05/27/24 10:40 AM HUNG RIVERO INTMWS During your visit today, we recorded the following information about you: Pulse Respiration Blood pressure Weight 83/minute 16/minute 122/78 113 kg Hung Rivero MD 06/17/2024 8:02 PM Signed This note was created using [employer]. Subjective Sasha Rachel is a 39 year old female. Patient presents with: Recheck: 4 week numbness, had sleep test, xrays Sasha is a 39-year-old female with a history of anxiety and depression, presenting for follow-up after a recent polypectomy and IUD insertion, and to discuss resuming Wellbutrin. Sasha recently underwent a polypectomy last Sunday after experiencing significant bleeding, which led to an ER visit where she was found to have a medium to large-sized polyp. During the procedure, an IUD was inserted to manage hormonal fluctuations. Since the IUD insertion, she reports feeling really depressed and anxious, which she attributes to the IUD's side effects. She expresses a desire to resume Wellbutrin, which she had previously discontinued, in addition to her current Zoloft regimen. She inquires about the safety of combining Wellbutrin with Zoloft and whether she should increase her Zoloft dosage. She reports a decrease in back pain and numbness, which she believes were interconnected with the polyp. She has not been on her feet much lately and has not noticed any significant back pain. She mentions that her recent lumbar x-ray showed mild progressive upper lumbar disc disease, with changes compared to a 2019 x-ray. She also reports fatigue and a lack of appetite, which she attributes to her recent medical issues. She is trying to build her iron levels back up and asks about starting an iron supplement. She has been taking vitamin D supplements and Flonase for allergies. She denies any swelling. PAST MEDICAL HISTORY Diagnosis Date Abnormal Pap smear of cervix 2004 Allergic rhinitis due to other allergen Depressive disorder, not elsewhere classified Fibromyalgia Food poisoning 2014 Irritable bowel syndrome Myalgia and myositis, unspecified Other chronic sinusitis Current Outpatient Medications Medication Sig albuterol HFA (PROVENTIL HFA, VENTOLIN HFA) 90 mcg/actuation inhaler Inhale 2 Puffs as instructed every 6 hours as needed for wheezing/shortness of breath. Brompheniramine-Pseud oeph-DM (BROMFED DM) 2-30-10 mg/5 mL syrup Take 5 mL by mouth four times a day as needed. sertraline (ZOLOFT) 100 mg tablet Take 1 tablet by mouth once daily. Dose change, take 1 daily benzonatate (TESSALON PERLE) 100 mg capsule Take 1-2 capsules by mouth three times a day as needed. sod bicarb-sod chlor-neti pot (NEILMED NASAFLO) pkdv 1 Each by sinus irrigation route two times a day as needed (for sinus congestion and drainage). hydrOXYzine HCl (ATARAX) 10 mg tablet Take 1-2 tablets by mouth three times a day as needed for anxiety. ondansetron orally disintegrating (ZOFRAN ODT) 4 mg disintegrating tablet Take 1 tablet by mouth every 6 hours as needed for nausea/vomiting. cholecalciferol (VITAMIN D3) 5,000 unit tab Take 1 tablet by mouth once daily. Magnesium 250 mg tab Take 2 tablets by mouth once daily. for anxiety / depression ibuprofen (MOTRIN) 200 mg tablet Take 4 tablets by mouth every 8 hours as needed for pain (headache). Take with food. albuterol HFA (PROAIR HFA) 90 mcg/actuation inhaler Inhale 2 Puffs as instructed every 6 hours as needed. amoxicillin (AMOXIL) 875 mg tablet Take 1 tablet by mouth two times a day for 10 days. buPROPion XL (WELLBUTRIN XL) 150 mg 24 hr tablet Take 1 tablet by mouth once daily. norethindrone (AYGESTIN) 5 mg tablet Take 1 tablet by mouth as directed. 1 tablet 3 times daily until bleeding stops then twice daily for 2 days then 1 tablet daily until surgery No current facility-administered medications for this visit. Review of Systems Objective BP 122/78 (BP Position: Sitting) Pulse 83 Resp 16 Wt 113 kg (249 lb 1.9 oz) LMP 05/12/2024 (Within Days) SpO2 98% BMI 37.88 kg/m? Physical Exam Constitutional: Appearance: Normal appearance. HENT: Head: Normocephalic. Eyes: Conjunctiva/sclera: Conjunctivae normal. Cardiovascular: Rate and Rhythm: Normal rate and regular rhythm. Heart sounds: Normal heart sounds. Pulmonary: Effort: Pulmonary effort is normal. Breath sounds: Normal breath sounds. Musculoskeletal: Right lower leg: No edema. Left lower leg: No edema. Skin: General: Skin is warm and dry. Neurological: General: No focal deficit present. Mental Status: She is alert and oriented to person, place, and time. Psychiatric: Mood and Affect: Mood normal. Behavior: Behavior normal. Thought Content: Thought content normal. Judgment: [place] (more content not included)... Normal [facility] 05-27-2024 [facility] Telephone (OBGYWM) SASHA RACHEL ([id number]) 1985 F Date Time Provider Department 05/27/24 MARISABEL CRYSTAL OBDUNG During your visit today, we recorded the following information about you: Haylie Davis RN 05/27/2024 3:44 PM Signed Patient had a DANDC, polypectomy, and Liletta IUD inserted on 05/23. Asking if she needs to continue taking the Aygestin. Advised that DM d/c medication post surgery. She is having bleeding again that began on Sunday. Moderate menstrual like flow. Changing her pad every 2-3 hours, not saturated. Cramping began within the last 48 hours. Advised she is likely having a menses. Her bleeding nearly stopped shortly after her surgery. Recommended patient call with heavy bleeding or severe cramping. Please advise. ANGEL Leonard Deidre, MD 05/27/2024 4:45 PM Signed Ok to stop aygestin. Bleeding should slowly taper. Haylie Davis RN 05/27/2024 4:48 PM Signed Patient notified. Haylie Davis RN Allergies As of Date: 05/27/2024 Noted Allergy Reaction MOLD 09/18/2019 14 - Other: See Comments SEASONAL ALLERGIES 07/02/2020 14 - Other: See Comments Date Reviewed: 05/27/2024 Reviewed by: Meme Muro LPN - Fully Assessed Reason for Visit: Patient Question [1477] Prescriptions as of 05/27/2024 - buPROPion XL (WELLBUTRIN XL) 150 mg 24 hr tablet Take 1 tablet by mouth once daily. - norethindrone (AYGESTIN) 5 mg tablet Take 1 tablet by mouth as directed. 1 tablet 3 times daily until bleeding stops then twice daily for 2 days then 1 tablet daily until surgery - albuterol HFA (PROVENTIL HFA, VENTOLIN HFA) 90 mcg/actuation inhaler Inhale 2 Puffs as instructed every 6 hours as needed for wheezing/shortness of breath. - Brompheniramine-Pseud oeph-DM (BROMFED DM) 2-30-10 mg/5 mL syrup Take 5 mL by mouth four times a day as needed. - sertraline (ZOLOFT) 100 mg tablet Take 1 tablet by mouth once daily. Dose change, take 1 daily - benzonatate (TESSALON PERLE) 100 mg capsule Take 1-2 capsules by mouth three times a day as needed. - sod bicarb-sod chlor-neti pot (NEILMED NASAFLO) pkdv 1 Each by sinus irrigation route two times a day as needed (for sinus congestion and drainage). - hydrOXYzine HCl (ATARAX) 10 mg tablet Take 1-2 tablets by mouth three times a day as needed for anxiety. - ondansetron orally disintegrating (ZOFRAN ODT) 4 mg disintegrating tablet Take 1 tablet by mouth every 6 hours as needed for nausea/vomiting. - cholecalciferol (VITAMIN D3) 5,000 unit tab Take 1 tablet by mouth once daily. - Magnesium 250 mg tab Take 2 tablets by mouth once daily. for anxiety / depression - ibuprofen (MOTRIN) 200 mg tablet Take 4 tablets by mouth every 8 hours as needed for pain (headache). Take with food. - albuterol HFA (PROAIR HFA) 90 mcg/actuation inhaler Inhale 2 Puffs as instructed every 6 hours as needed. Problem List As Of Date 05/27/2024 Noted Resolved Fibromyalgia [HCO8424] 08/20/2007 Anxiety and depression [F41.9, F32.A] History of depression [Z86.59] 12/06/2017 08/26/2019 At risk for depression [Z91.89] 04/24/2018 08/26/2019 Anxiety [F41.9] 04/24/2018 Numbness and tingling of lower extremity [R20.0*05/28/2018 29 weeks gestation of [Z3A.29] 05/28/2018 08/26/2019 Excessive growth affecting management of *07/22/2018 08/26/2019 Polyhydramnios in third trimester [O40.3XX0] 07/22/2018 08/26/2019 Acute back pain with sciatica, left [M54.42] 01/01/2019 08/26/2019 Class 2 obesity with body mass index (BMI) of 3*09/19/2021 Encounter Status:Closed by HAYLIE DAVIS on 05/27/24 Normal [facility] Discharge Instructionon - Discharge Instruction [facility] Medical Records Department [address] [place] [address] Instructions for Home/Discharge Instructions 05/23/24 0716 MR#: [id number] Acct: [id number] Name: SASHA RACHEL Rep #: [id number] : 1985 39 From: Marisabel Kelly MD PCP: Dr. Hung Rivero MD Status:REG SDC Discharge Instructions Diet Discharge Diet: No restrictions DC O2, CPAP, BIPAP needs Home O2 Discharge instructions: No Dressing / Incision May resume sexual activity in: 1 week Dressing / Incision Call your doctor if you observe: Fever of 101 or Higher, Inability to urinate, Using more than 1 pad per hour and Uncontrolled pain Follow Up Care Please Follow Up With: Anjana Kelly MD When: 4-6 weeks for IUD check. I will call you when pathology results are available. If you feel you need seen before that time please call [phone] to schedule an appointment. Test Results: Test results from this visit will be discussed in further detail at your follow-up appointment, if applicable. Discharge Plan Admission Attending Provider: Anjana Kelly Primary Care Provider: Hung Rivero Instructions Print Language: Citizen Of [place] Discharge Orders/Prescriptions Prescriptions: No Action sertraline 50 MG tablet 100 mg PO QHS hydroxyzine HCl 10 mg tablet 10 - 20 mg PO TID PRN PRN (Reason: anxiety) albuterol sulfate 90 mcg/actuation HFA aerosol inhaler 2 puff INHALATION Q6H PRN PRN (Reason: wheezing) hy-gt-sddq-FA-Ca carb-vit K 18 mg iron-400 mcg-500 mg tablet 2 tab PO DAILY norethindrone acetate 5 mg tablet PO Referrals / Follow Up: Hung Rivero MD [Primary Care Provider] - Disposition Disposition (needs filled in before D/C Order can be placed): Home, Self Care 05/23/24 0717 Marisabel Kelly MD CC: Dr. Hung Rivero MD Signed [facility] MR/POSTOP.Nayan 05-23-2024 MR/POSTOP.[facility] Medical Records Department [address] [place] [address] Anesthesia Postop Eval I 05/23/24 0752 MR#: [id number] Acct: [id number] Name: SASHA RACHEL Rep #: [id number] : 1985 39 From: Aristeo Lara CRNA PCP: Dr. Hung Rivero MD Status:REG SDC Y Race: C Location: [place] [address] Anesthesia: Postop Eval I Current Vital Signs Temperature: 96.9 F Pulse Rate: 75 Blood Pressure: 96/54 Respiratory Rate: 18 Pulse Ox: 92 Assessment Airway patent: Yes Spontaneous unlabored respirations: Yes nausea: No Vomiting: No Anesthesia Complication: No Fluid Hydration Crystalloid volume administer (ml): 300 Total IV fluid infused: 300 Progress Note Anesthesia document: Postop Eval 1 completed: Yes 05/23/24 075 Date Aristeo Lara BOBBIN INSPECTOR Cosigner Signature: Date CC: Signed Normal [facility] MR/[id number] 05-23-2024 [facility] Medical Records Department [address] [place] [address] Anesthesia Postop Eval II 05/23/24 0808 MR#: [id number] Acct: [id number] Name: SASHA RACHEL Rep #: [id number] : 1985 39 From: Raul Godinez MD PCP: Dr. Hung Rivero MD Status:REG SDC Y Race: C Location: [place] [address] Anesthesia Postop Eval I Sum Postop Eval Completion status Anesthesia document: Postop Eval 1 completed: Yes Anesthesia Postop Eval I Summary Anesthesia Postop Eval I Summary: Anesthesia Postop Eval I: Assessment Summary Airway patent Yes 05/23/24 07:52 BOBBIN INSPECTOR.TNES Spontaneous unlabored Yes 05/23/24 07:52 BOBBIN INSPECTOR.TNES respirations Mental status nausea No 05/23/24 07:52 BOBBIN INSPECTOR.TNES Vomiting No 05/23/24 07:52 BOBBIN INSPECTOR.TNES Anesthesia Postop Eval I: Fluid Summary Crystalloid volume administer 300 05/23/24 07:52 BOBBIN INSPECTOR.TNES (ml) Colloids volume administered ( ml) Blood Product volume administered (ml) Total IV fluid infused 300 05/23/24 07:52 BOBBIN INSPECTOR.TNES Anesthesia Postop Eval I: Summary Notes Anesthesia Complication No 05/23/24 07:52 BOBBIN INSPECTOR.TNES Anesthesia Complication Comment: Post-operative progress note Anesthesia: Postop Eval II Evaluation Mental status: Awake Pain Level: 0 nausea: No Vomiting: No 05/23/24 0808 Date Raul Edward Signature: Date CC: Signed Normal [facility] Operative Reporton 5 Operative Report [facility] Medical Records Department [address] [place] [address] Operative Report 05/23/24 0741 MR#: [id number] Acct: [id number] Name: SASHA RACHEL Rep #: [id number] : 1985 39 From: Marisabel Kelly MD PCP: Dr. Hung Rivero MD Status:[facility] Location: [place] [address] Operative Report (Standard) Operative Information Date of Procedure: 05/23/24 Pre-Operative Diagnosis: AUB, endometrial polyp Post-Operative Diagnosis: same, endocervical polyp Surgery/Procedure Performed: Hysteroscopy, D C, polypectomy, Insertion of Liletta IUD auto porter: No Type of Anesthesia: MAC RN Documented Start/Stop Times: Operation Date: 05/23/24 07:30 Case Time Into Pre-Op 05/23/24 05:54 Out of Pre-Op 05/23/24 07:12 Procedure Start Time: 07:28 Procedure Stop Time: 07:40 Select all DRAINS/GRAFTS/IMPLANT S that apply: Implanted device Implanted device details: Liletta IUD Estimated Blood Loss: <5cc Fluids Replaced: 300 Specimen collected: Yes Description of specimen(s) removed: endometrial curettings and endocervical polyp Description of surgery: Informed consent was obtained the patient was taken the operating room she was placed in supine position. She was given anesthesia. She was then placed in the [facility] where she was prepped and draped in the normal sterile fashion. At this time the weighted speculum was placed in the posterior fornix of vagina. Single-tooth tenaculum was used to gently grasp the anterior lip the cervix. At this time the uterine cavity was sounded to approximately 8.5 cm. Gentle dilatation was performed once adequate dilatation of the cervix was achieved the hysteroscope using normal saline as a distention medium was placed. Tubal ostia visualized. thickened endometrial tissue noted especially around fundal aspect and endocervix contained what appeared to be polyp . Symphion resecting device used to obtain endometrial curettings and to perform polypectomy. Tissue will be sent to pathology for evaluation. at this time Liletta IUD was placed at uterine fundus without difficulty and strings cut to 2.5cm and Tenaculum removed. Good hemostasis. Instrument, lap count correct x 2. Vaginal Sweep was negative. fluid deficit 550cc Surgical Findings: possible enodcervical polyp and and thickened tissue noted. Complications Complications: No Admit VTE Documentation VTE Present on Admission: Yes VTE Mechan Device Prophylaxis: SCD's VTE Pharm Prophylaxis ordered?: No Reason prophylaxis not ordered: Treatment Not Indicated 05/23/24 5317 Cosigner Signature (if applicable): CC: Dr Marisabel Kelly MD; Dr. Hung Rivero MD Signed Normal [facility] ,Urineon 05-23-2024 Beta HCG ( test) Ql (U) Negative Normal [facility] Comment on above: Result Comment: Very dilute urine specimens, as indicated by a low specific gravity, may not contain sales representative printing paper levels of hCG. If is still suspected, a first morning urine specimen should be collected 48 hours later and tested. Performed By: #### L [id number] #### [facility] [address] [place], [address] Surgery Specimen Level Jonny 05-23-2024 Surgery Specimen Level IV -------- Patient Age/Sex Location Account Attending Physician -------- BLANK RACHELORAH SPENSER 39/F [facility] [id number] Dr Marisabel Kelly -------- Specimen: [id number] Received: 05/23/24 Status: ARPIT Godoy Num: [id number] Spec Type: ENDOM BX/C Prabha Dr: Dr Marisabel Kelly MD HEADER OPERATION: Hysteroscopy, D C, polypectomy PRE-OP DIAGNOSIS: Abnormal uterine bleeding, endometrial polyp TISSUE SUBMITTED: A- Endometrial curettings and endometrial polyp -------- MICROSCOPIC DIAGNOSIS A. Endometrium and endocervix, curettage and polypectomy: * Secretory endometrium with progestin features * Polyp with features of lower uterine segment origin MICROSCOPIC DESCRIPTION Slides are reviewed. GROSS DESCRIPTION A. Received in formalin in a container labeled with the patient's name, date of , and endometrial curettings and endocervical polyp are multiple aquino-pink fragments of soft tissue admixed with a scant amount of blood and mucus measuring 2.8 x 2.5 x 1.0 cm in aggregate. Submitted in toto in A1-3. [facility] 05/28/2024 [facility]:[id number] -------- Patient Age/Sex Location Account Attending Physician -------- SASHA RACHEL 39/F [facility] [id number] Dr Marisabel Hu-Karla, -------- Signed (signature on file) Dr. Betzy House MD 05/28/24 1559 -------- Normal [facility] Comment on above: Performed By: #### P SUIV #### [facility] [address] [place], [address] Urine testOrdered By: Marisabel Kelly on 05-23-2024 HCG ( test) Ql (U) Negative [facility] Comment on above: Very dilute urine sp ecimens, as indicated by a low specificgravity, may not contain sales representative printing paper levels of hCG. If is still suspected, a first morning urinespecimen should be collected 48 hours later and tested. H AND P Exam - OB/GYNon 05-06 H&P Exam - NURSING INSTRUCTOR [facility] Medical Records Department [address] [place] [address] H P Exam - NURSING INSTRUCTOR 05/22/24 1214 MR#: [id number] Acct: [id number] Name: SASHA RACHEL Rep #: [id number] : 1985 39 From: Marisabel Kelly MD PCP: Dr. Hung Rivero MD Status:[facility] Location: [place] [address] History and Physical Date of Admission: 05/23/24 Expand All Collapse All Pre-Op History and Physical HPI: The patient is a 39 year old female presenting for discussion of AUB/polyp and surgical mgmt. pre-operative visit. She is scheduled for hysteroscopy, D C, polypectomy with symphion and insertion of liletta IUD for AUB, polyp on 05/23/24. Procedure discussed along with risks, benefits and complications. Other alternatives discussed for management. Consent form signed? Yes. PAST MEDICAL HISTORY PAST MEDICAL HISTORY Diagnosis Date ??? Abnormal Pap smear of cervix 2004 ??? Allergic rhinitis due to other allergen ??? Depressive disorder, not elsewhere classified ??? Fibromyalgia ??? Food poisoning 2014 ??? Irritable bowel syndrome ??? Myalgia and myositis, unspecified ??? Other chronic sinusitis PAST SURGICAL HISTORY PAST SURGICAL HISTORY Procedure Laterality Date ??? HYSTEROSCOPY BX ENDOMETRIUM /POLYPC W/WO D C 09/18/2019 hysteroscopy D C for AUP ??? TONSILLECTOMY ADENOIDECTOMY AGE 12/> 1996 CURRENT MEDICATIONS Current Outpatient Medications Medication Sig Dispense Refill ??? norethindrone (AYGESTIN) 5 mg tablet Take 1 tablet by mouth as directed. 1 tablet 3 times daily until bleeding stops then twice daily for 2 days then 1 tablet daily until surgery 30 tablet 1 ??? albuterol HFA (PROVENTIL HFA, VENTOLIN HFA) 90 mcg/actuation inhaler Inhale 2 Puffs as instructed every 6 hours as needed for wheezing/shortness of breath. 1 Each 0 ??? Brompheniramine-Pseud oeph-DM (BROMFED DM) 2-30-10 mg/5 mL syrup Take 5 mL by mouth four times a day as needed. 120 mL 0 ??? fluticasone (FLONASE) 50 mcg/actuation nasal spray Use 2 Sprays in each nostril once daily. Rinse mouth after use. 1 Each 0 ??? sertraline (ZOLOFT) 100 mg tablet Take 1 tablet by mouth once daily. Dose change, take 1 daily 90 tablet 3 ??? fluticasone (FLONASE) 50 mcg/actuation nasal spray Use 2 Sprays in each nostril once daily. Rinse mouth after use. 1 Each 0 ??? benzonatate (TESSALON PERLE) 100 mg capsule Take 1-2 capsules by mouth three times a day as needed. 60 capsule 1 ??? sod bicarb-sod chlor-neti pot (NEILMED NASAFLO) pkdv 1 Each by sinus irrigation route two times a day as needed (for sinus congestion and drainage). 30 Each 0 ??? hydrOXYzine HCl (ATARAX) 10 mg tablet Take 1-2 tablets by mouth three times a day as needed for anxiety. 90 tablet 2 ??? buPROPion XL (WELLBUTRIN XL) 150 mg 24 hr tablet Take 1 tablet by mouth once daily. 90 tablet 3 ??? ondansetron orally disintegrating (ZOFRAN ODT) 4 mg disintegrating tablet Take 1 tablet by mouth every 6 hours as needed for nausea/vomiting. 20 tablet 0 ??? cholecalciferol (VITAMIN D3) 5,000 unit tab Take 1 tablet by mouth once daily. ??? Magnesium 250 mg tab Take 2 tablets by mouth once daily. for anxiety / depression ??? ibuprofen (MOTRIN) 200 mg tablet Take 4 tablets by mouth every 8 hours as needed for pain (headache). Take with food. ??? albuterol HFA (PROAIR HFA) 90 mcg/actuation inhaler Inhale 2 Puffs as instructed every 6 hours as needed. 1 Inhaler 2 No current facility-administered medications for this visit. ALLERGIES: Mold and Seasonal Allergies PERSONAL HISTORY: SOCIAL HISTORY Social History Tobacco Use ??? Smoking status: Never ??? Smokeless tobacco: Never Vaping Use ??? Vaping status: Never Used Substance Use Topics ??? Alcohol use: Yes Comment: Occasionally, but not while ??? Drug use: No FAMILY HISTORY: FAMILY HISTORY FAMILY HISTORY Problem Relation Age of Onset ??? Breast Cancer Mother ??? other (hypercholesterolemia ) Mother diet controlled ??? Obesity Mother ??? other (hysterectomy) Mother ??? Parkinson???s Disease Father ??? Prostate Cancer Father ??? Obesity Father ??? other (overweight) Sister ??? Heart Maternal Grandmother ??? Obesity Maternal Grandmother ??? Psychiatry Maternal Grandfather ??? Obesity Maternal Grandfather ??? Hypertension Paternal Grandmother ??? Heart Paternal Grandmother ??? Obesity Paternal Grandmother ??? Heart Paternal Grandfather ??? Obesity Paternal Grandfather ??? Autism Son REVIEW OF SYMPTOMS: negative except as noted above PHYSICAL EXAMINATION: VITALS: Last menstrual period 05/12/2024. GENERAL: The patient is well nourished, well hydrated in no acute distress. , The patient is oriented to time, place, and person. NECK: full range of motion LUNGS: Clear to auscultation bilaterally. no wheezes, rhonchi or rales HEAR (more content not included)... Normal [facility] CNOVon 05-21-2024 CNOV Office Visit (OBGYWM ) SASHA RACHEL ([id number]) 1985 F Date Time Provider Department 05/21/24 9:20 AM MARISABEL CRYSTAL OBMIKEYWPhillip During your visit today, we recorded the following information about you: Blood pressure Weight Height 124/70 114.8 kg 1.727 m Marisabel Crystal MD 05/21/2024 10:01 AM Signed Pre-Op History and Physical HPI: The patient is a 39 year old female presenting for discussion of AUB/polyp and surgical mgmt. pre-operative visit. She is scheduled for hysteroscopy, DANDC, polypectomy with symphion and insertion of liletta IUD for AUB, polyp on 05/23/24. Procedure discussed along with risks, benefits and complications. Other alternatives discussed for management. Consent form signed? Yes. PAST MEDICAL HISTORY Diagnosis Date Abnormal Pap smear of cervix 2004 Allergic rhinitis due to other allergen Depressive disorder, not elsewhere classified Fibromyalgia Food poisoning 2014 Irritable bowel syndrome Myalgia and myositis, unspecified Other chronic sinusitis PAST SURGICAL HISTORY Procedure Laterality Date HYSTEROSCOPY BX ENDOMETRIUMAND/POLYPC W/WO DANDC 09/18/2019 hysteroscopy DANDC for AUP TONSILLECTOMY AND ADENOIDECTOMY AGE 12/> 1996 Current Outpatient Medications Medication Sig Dispense Refill norethindrone (AYGESTIN) 5 mg tablet Take 1 tablet by mouth as directed. 1 tablet 3 times daily until bleeding stops then twice daily for 2 days then 1 tablet daily until surgery 30 tablet 1 albuterol HFA (PROVENTIL HFA, VENTOLIN HFA) 90 mcg/actuation inhaler Inhale 2 Puffs as instructed every 6 hours as needed for wheezing/shortness of breath. 1 Each 0 Brompheniramine-Pseud oeph-DM (BROMFED DM) 2-30-10 mg/5 mL syrup Take 5 mL by mouth four times a day as needed. 120 mL 0 fluticasone (FLONASE) 50 mcg/actuation nasal spray Use 2 Sprays in each nostril once daily. Rinse mouth after use. 1 Each 0 sertraline (ZOLOFT) 100 mg tablet Take 1 tablet by mouth once daily. Dose change, take 1 daily 90 tablet 3 fluticasone (FLONASE) 50 mcg/actuation nasal spray Use 2 Sprays in each nostril once daily. Rinse mouth after use. 1 Each 0 benzonatate (TESSALON PERLE) 100 mg capsule Take 1-2 capsules by mouth three times a day as needed. 60 capsule 1 sod bicarb-sod chlor-neti pot (NEILMED NASAFLO) pkdv 1 Each by sinus irrigation route two times a day as needed (for sinus congestion and drainage). 30 Each 0 hydrOXYzine HCl (ATARAX) 10 mg tablet Take 1-2 tablets by mouth three times a day as needed for anxiety. 90 tablet 2 buPROPion XL (WELLBUTRIN XL) 150 mg 24 hr tablet Take 1 tablet by mouth once daily. 90 tablet 3 ondansetron orally disintegrating (ZOFRAN ODT) 4 mg disintegrating tablet Take 1 tablet by mouth every 6 hours as needed for nausea/vomiting. 20 tablet 0 cholecalciferol (VITAMIN D3) 5,000 unit tab Take 1 tablet by mouth once daily. Magnesium 250 mg tab Take 2 tablets by mouth once daily. for anxiety / depression ibuprofen (MOTRIN) 200 mg tablet Take 4 tablets by mouth every 8 hours as needed for pain (headache). Take with food. albuterol HFA (PROAIR HFA) 90 mcg/actuation inhaler Inhale 2 Puffs as instructed every 6 hours as needed. 1 Inhaler 2 No current facility-administered medications for this visit. ALLERGIES: Mold and Seasonal Allergies PERSONAL HISTORY: Social History Tobacco Use Smoking status: Never Smokeless tobacco: Never Vaping Use Vaping status: Never Used Substance Use Topics Alcohol use: Yes Comment: Occasionally, but not while Drug use: No FAMILY HISTORY: FAMILY HISTORY Problem Relation Age of Onset Breast Cancer Mother other (hypercholesterolemia ) Mother diet controlled Obesity Mother other (hysterectomy) Mother Parkinson?s Disease Father Prostate Cancer Father Obesity Father other (overweight) Sister Heart Maternal Grandmother Obesity Maternal Grandmother Psychiatry Maternal Grandfather Obesity Maternal Grandfather Hypertension Paternal Grandmother Heart Paternal Grandmother Obesity Paternal Grandmother Heart Paternal Grandfather Obesity Paternal Grandfather Autism Son REVIEW OF SYMPTOMS: negative except as noted above PHYSICAL EXAMINATION: VITALS: Last menstrual period 05/12/2024. GENERAL: The patient is well nourished, well hydrated in no acute distress. , The patient is oriented to time, place, and person. NECK: full range of motion LUNGS: Clear to auscultation bilaterally. no wheezes, rhonchi or rales HEART: Regular rate and rhythm, Normal heart sounds, and No murmurs or gallops IMPRESSION: 39yo with AUB, endometrial polyp PLAN: hysteroscopy, DANDC, polypectomy with symphion Pt has been counseled on risks/benefits and alternatives of surgery including but not limited to anesthesia, bleeding, infection, uterine perforation injury to pelvic structures including makayla (more content not included)... Normal [facility] HISTORY PHYSICALon HISTORY PHYSICAL HNO ID: [id number] Author: MARISABEL CRYSTAL MD Service: ? Author Type: Physician Type: H&P Filed: 05/21/2024 10:01 Note Text: Pre-Op History and Physical HPI: The patient is a 39 year old female presenting for discussion of AUB/polyp and surgical mgmt. pre-operative visit. She is scheduled for hysteroscopy, DANDC, polypectomy with symphion and insertion of liletta IUD for AUB, polyp on 05/23/24. Procedure discussed along with risks, benefits and complications. Other alternatives discussed for management. Consent form signed? Yes. PAST MEDICAL HISTORY Diagnosis Date Abnormal Pap smear of cervix 2004 Allergic rhinitis due to other allergen Depressive disorder, not elsewhere classified Fibromyalgia Food poisoning 2014 Irritable bowel syndrome Myalgia and myositis, unspecified Other chronic sinusitis PAST SURGICAL HISTORY Procedure Laterality Date HYSTEROSCOPY BX ENDOMETRIUMAND/POLYPC W/WO DANDC 09/18/2019 hysteroscopy DANDC for AUP TONSILLECTOMY AND ADENOIDECTOMY AGE 12/> 1996 Current Outpatient Medications Medication Sig Dispense Refill norethindrone (AYGESTIN) 5 mg tablet Take 1 tablet by mouth as directed. 1 tablet 3 times daily until bleeding stops then twice daily for 2 days then 1 tablet daily until surgery 30 tablet 1 albuterol HFA (PROVENTIL HFA, VENTOLIN HFA) 90 mcg/actuation inhaler Inhale 2 Puffs as instructed every 6 hours as needed for wheezing/shortness of breath. 1 Each 0 Brompheniramine-Pseud oeph-DM (BROMFED DM) 2-30-10 mg/5 mL syrup Take 5 mL by mouth four times a day as needed. 120 mL 0 fluticasone (FLONASE) 50 mcg/actuation nasal spray Use 2 Sprays in each nostril once daily. Rinse mouth after use. 1 Each 0 sertraline (ZOLOFT) 100 mg tablet Take 1 tablet by mouth once daily. Dose change, take 1 daily 90 tablet 3 fluticasone (FLONASE) 50 mcg/actuation nasal spray Use 2 Sprays in each nostril once daily. Rinse mouth after use. 1 Each 0 benzonatate (TESSALON PERLE) 100 mg capsule Take 1-2 capsules by mouth three times a day as needed. 60 capsule 1 sod bicarb-sod chlor-neti pot (NEILMED NASAFLO) pkdv 1 Each by sinus irrigation route two times a day as needed (for sinus congestion and drainage). 30 Each 0 hydrOXYzine HCl (ATARAX) 10 mg tablet Take 1-2 tablets by mouth three times a day as needed for anxiety. 90 tablet 2 buPROPion XL (WELLBUTRIN XL) 150 mg 24 hr tablet Take 1 tablet by mouth once daily. 90 tablet 3 ondansetron orally disintegrating (ZOFRAN ODT) 4 mg disintegrating tablet Take 1 tablet by mouth every 6 hours as needed for nausea/vomiting. 20 tablet 0 cholecalciferol (VITAMIN D3) 5,000 unit tab Take 1 tablet by mouth once daily. Magnesium 250 mg tab Take 2 tablets by mouth once daily. for anxiety / depression ibuprofen (MOTRIN) 200 mg tablet Take 4 tablets by mouth every 8 hours as needed for pain (headache). Take with food. albuterol HFA (PROAIR HFA) 90 mcg/actuation inhaler Inhale 2 Puffs as instructed every 6 hours as needed. 1 Inhaler 2 No current facility-administered medications for this visit. ALLERGIES: Mold and Seasonal Allergies PERSONAL HISTORY: Social History Tobacco Use Smoking status: Never Smokeless tobacco: Never Vaping Use Vaping status: Never Used Substance Use Topics Alcohol use: Yes Comment: Occasionally, but not while Drug use: No FAMILY HISTORY: FAMILY HISTORY Problem Relation Age of Onset Breast Cancer Mother other (hypercholesterolemia ) Mother diet controlled Obesity Mother other (hysterectomy) Mother Parkinson?s Disease Father Prostate Cancer Father Obesity Father other (overweight) Sister Heart Maternal Grandmother Obesity Maternal Grandmother Psychiatry Maternal Grandfather Obesity Maternal Grandfather Hypertension Paternal Grandmother Heart Paternal Grandmother Obesity Paternal Grandmother Heart Paternal Grandfather Obesity Paternal Grandfather Autism Son REVIEW OF SYMPTOMS: negative except as noted above PHYSICAL EXAMINATION: VITALS: Last menstrual period 05/12/2024. GENERAL: The patient is well nourished, well hydrated in no acute distress. , The patient is oriented to time, place, and person. NECK: full range of motion LUNGS: Clear to auscultation bilaterally. no wheezes, rhonchi or rales HEART: Regular rate and rhythm, Normal heart sounds, and No murmurs or gallops IMPRESSION: 39yo with AUB, endometrial polyp PLAN: hysteroscopy, DANDC, polypectomy with symphion Pt has been counseled on risks/benefits and alternatives of surgery including but not limited to anesthesia, bleeding, infection, uterine perforation injury to pelvic structures including bowel, bladder, ureters and vessels. Pt wishes to proceed with surgery at this time. I have reviewed and updated past medical and surgical history, medications and allergies Marisabel Zavaleta MD Normal [facility] Absolute neutrophil countOrd ered By: Stanley Norris on 05-16-2024 Neutrophils (Bld) [#/Vol] 4.2 10*3/uL 2.0-7.7 [facility] Anion gap in Serum or Plasma Ordered By: Stanley Norris on 05-16-2024 Anion gap [Moles/Vol] 10 mmol/L 5-[address] [facility] BUN/creatinine ratioOrdered By: Stanley Norris on 05-16-2024 Urea nitrogen/Creatinine [Mass ratio] 25.5 mg/mg High 10-20 [facility] Basic Metabolic Profile (BMP )on 05-16-2024 BUN/CRE 25.5 RATIO High - [facility] Comment on above: Performed By: #### L 500.2500, L300.3900, L100.0100, L700.6800, L300.4310 #### [facility] [address] [place], [address] Calcium [Mass/Vol] 8.7 mg/dL Normal 7.6-11.0 [facility] Comment on above: Performed By: #### L 500.2500, L300.3900, L100.0100, L700.6800, L300.4310 #### [facility] [address] [place], [address] Chloride [Moles/Vol] 106 mmol/L Normal 98-108 [facility] Comment on above: Performed By: #### L 500.2500, L300.3900, L100.0100, L700.6800, L300.4310 #### [facility] [address] [place], [address] CO2 [Moles/Vol] 21.5 mmol/L Normal 21.0-32.0 [facility] Comment on above: Performed By: #### L 500.2500, L300.3900, L100.0100, L700.6800, L300.4310 #### [facility] [address] [place], [address] Creatinine [Mass/Vol] 0.79 mg/dL Normal 0.70-1.[address] [facility] Comment on above: Performed By: #### L 500.2500, L300.3900, L100.0100, L700.6800, L300.4310 #### [facility] [address] [place], [address] ECRCL 129.71 ml/min Normal 50-250 [facility] Comment on above: Performed By: #### L 500.2500, L300.3900, L100.0100, L700.6800, L300.4310 #### [facility] [address] [place], [address] GAP 10 Normal 5-15 [facility] Comment on above: Performed By: #### L 500.2500, L300.3900, L100.0100, L700.6800, L300.4310 #### [facility] [address] [place], [address] GFR/1.73 sq M.predicted among non-blacks MDRD (S/P/Bld) [Vol rate/Area] 98 mL/min/{1.73_m2} Normal >60 [facility] Comment on above: Result Comment: mL/m in/1.73m2 CKD-EPI Creatinine Equation (2020) Performed By: #### L 500.2500, L300.3900, L100.0100, L700.6800, L300.4310 #### [facility] [address] [place], [address] Glucose [Mass/Vol] 88 mg/dL Normal 70-99 [facility] Comment on above: Performed By: #### L 500.2500, L300.3900, L100.0100, L700.6800, L300.4310 #### [facility] [address] [place], [address] Potassium [Moles/Vol] 4.1 mmol/L Normal 3.3-5.[address] [facility] Comment on above: Performed By: #### L 500.2500, L300.3900, L100.0100, L700.6800, L300.4310 #### [facility] [address] [place], [address] Sodium [Moles/Vol] 138 mmol/L Normal 133-145 [facility] Comment on above: Performed By: #### L 500.2500, L300.3900, L100.0100, L700.6800, L300.4310 #### [facility] [address] [place], [address] Urea nitrogen [Mass/Vol] 20 mg/dL High 4-19 [facility] Comment on above: Performed By: #### L 500.2500, L300.3900, L100.0100, L700.6800, L300.4310 #### [facility] [address] [place], [place], [address] Basophil percentageOrdered B y: Stanley Norris on 05-16-2024 Basophils/100 WBC (Bld) 0.2 % 0-1 W [facility] Beta HCG ( test) Ql Ordered By: Stanley Norris on 05-16-2024 Serum Test, Qualitative Negative [facility] CBC W/Diff, Automatedon 05-06 SMEAR COMMENT SCANNED Normal [facility] Comment on above: Performed By: #### L 500.2500, L300.3900, L100.0100, L700.6800, L300.4310 #### [facility] [address] [place], [address] CNOVon 05-16-2024 CNOV Office Visit (OBGYWM ) SASHA RACHEL ([id number]) 1985 F Date Time Provider Department 05/16/24 1:00 PM ADRIANA CLARK OBGYWM During your visit today, we recorded the following information about you: Blood pressure Weight Last Period 113/68 116.1 kg 05/12/24 Adriana Clark APRN.AIR DEFENCE OFFICER 05/16/2024 5:24 PM Signed Solar Lab Technician offered: Patient declines. Sasha Rachel is a 39 year old female who presents for problem visit ED follow-up HMB HPI: [facility] ED visit last night for HMB. CBC WNL Evaluated 04/24/2024 for HMB after stopping LAISHA. Sprintec restarted 04/24/2024 and bleeding slowed to a stop over the next week. Bleeding started 5 days ago becoming heavy yesterday and started passing clots larger than the size of her hand. Bleeding has slowed a little. Pelvic ultrasound today Impression Anteverted uterus with thickened endometrium. There is a hyperechoic focus with vascular stalk within the endometrium likely representing a single large polyp, 29 mm x 18 mm x 11 mm. No focal myometrial lesions Right Ovary is not visualized. Left Ovary is normal. Cul de sac is normal with no free fluid. OB History Gravida1 Para1 Term1 Preterm0 AB0 Living1 SAB0 IAB0 Ectopic0 Multiple0 Live Births1 [place] [employer] History LMP: 05/12/2024 (Within Days), Having periods Age at Menarche: Age at First : Age at Menopause: S[place]er History Comments: Sexual Activity: Yes; Male Contraception: No contraception data on record PAST MEDICAL HISTORY Diagnosis Date Abnormal Pap smear of cervix 2004 Allergic rhinitis due to other allergen Depressive disorder, not elsewhere classified Fibromyalgia Food poisoning 2014 Irritable bowel syndrome Myalgia and myositis, unspecified Other chronic sinusitis PAST SURGICAL HISTORY Procedure Laterality Date HYSTEROSCOPY BX ENDOMETRIUMAND/POLYPC W/WO DANDC 09/18/2019 hysteroscopy DANDC for AUP TONSILLECTOMY AND ADENOIDECTOMY AGE 12/> 1996 FAMILY HISTORY Problem Relation Age of Onset Breast Cancer Mother other (hypercholesterolemia ) Mother diet controlled Obesity Mother other (hysterectomy) Mother Parkinson?s Disease Father Prostate Cancer Father Obesity Father other (overweight) Sister Heart Maternal Grandmother Obesity Maternal Grandmother Psychiatry Maternal Grandfather Obesity Maternal Grandfather Hypertension Paternal Grandmother Heart Paternal Grandmother Obesity Paternal Grandmother Heart Paternal Grandfather Obesity Paternal Grandfather Autism Son Social History Tobacco Use Smoking status: Never Smokeless tobacco: Never Vaping Use Vaping status: Never Used Substance Use Topics Alcohol use: Yes Comment: Occasionally, but not while Drug use: No Current Outpatient Medications Medication Sig norgestimate 0.25 mg-ethinyl estradiol 35 mcg (SPRINTEC) 0.25-35 mg-mcg per tablet Take 1 tablet by mouth once daily. albuterol HFA (PROVENTIL HFA, VENTOLIN HFA) 90 mcg/actuation inhaler Inhale 2 Puffs as instructed every 6 hours as needed for wheezing/shortness of breath. Brompheniramine-Pseud oeph-DM (BROMFED DM) 2-30-10 mg/5 mL syrup Take 5 mL by mouth four times a day as needed. fluticasone (FLONASE) 50 mcg/actuation nasal spray Use 2 Sprays in each nostril once daily. Rinse mouth after use. sertraline (ZOLOFT) 100 mg tablet Take 1 tablet by mouth once daily. Dose change, take 1 daily fluticasone (FLONASE) 50 mcg/actuation nasal spray Use 2 Sprays in each nostril once daily. Rinse mouth after use. benzonatate (TESSALON PERLE) 100 mg capsule Take 1-2 capsules by mouth three times a day as needed. sod bicarb-sod chlor-neti pot (NEILMED NASAFLO) pkdv 1 Each by sinus irrigation route two times a day as needed (for sinus congestion and drainage). hydrOXYzine HCl (ATARAX) 10 mg tablet Take 1-2 tablets by mouth three times a day as needed for anxiety. buPROPion XL (WELLBUTRIN XL) 150 mg 24 hr tablet Take 1 tablet by mouth once daily. ondansetron orally disintegrating (ZOFRAN ODT) 4 mg disintegrating tablet Take 1 tablet by mouth every 6 hours as needed for nausea/vomiting. cholecalciferol (VITAMIN D3) 5,000 unit tab Take 1 tablet by mouth once daily. Magnesium 250 mg tab Take 2 tablets by mouth once daily. for anxiety / depression ibuprofen (MOTRIN) 200 mg tablet Take 4 tablets by mouth every 8 hours as needed for pain (headache). Take with food. albuterol HFA (PROAIR HFA) 90 mcg/actuation inhaler Inhale 2 Puffs as instructed every 6 hours as needed. No current facility-administered medications for this visit. Allergies As of Date: 05/16/2024 Allergen Noted Reaction MOLD 09/18/2019 Other: See Comments SEASONAL ALLERGIES 07/02/2020 Other: See Comments Fully Assessed 05/16/2024 REVIEW OF SYSTEMS Abdomen: A little menstrual cramping Allergies and current medication updated:Yes SENSITIVE EXAM: Sensitive exam not perf (more content not included)... Normal [facility] Yoli 05-16-2024 GINO Telephone (OBGYWM) SASHA RACHEL ([id number]) 1985 F Date Time Provider Department 05/16/24 HAYLIE GARZA During your visit today, we recorded the following information about you: Sujit Bass RN 05/16/2024 9:46 AM Addendum Went to [facility] ER for vaginal bleeding/clotting (bigger than her hand) q15 minutes. ER talked to OB Dr o/c and advised Pt to call office this AM to get an appt and ultrasound. Pt states labs were completed and WNL, but nothing else was done as she was told to f/u in office amelia. Pt last seen in office 04/24/24 by AG for abnormal uterine bleeding. Pelvic US order pending AND 1100am for today placed on hold if appropriate. 1pm appt spot booked to see AG. Pt agreeable to space between appointments as she just wants to have this addressed. Please advise. ANGEL Salcedo Tara, RN 05/16/2024 10:18 AM Signed Pt notified AG filed pelvic US order and appt is scheduled for 11am today and AG will see her at 1pm today. Advised Pt that if she would experience CP, shortness of breath, dizziness, light headedness with the amount of bleeding that she is having, then we would advise that she return to the ER. Pt voiced understanding. Sujit Bass RN Allergies As of Date: 05/16/2024 Noted Allergy Reaction MOLD 09/18/2019 14 - Other: See Comments SEASONAL ALLERGIES 07/02/2020 14 - Other: See Comments Date Reviewed: 05/16/2024 Reviewed by: Alanna Cheney RN - Fully Assessed Primary Visit Diagnosis:Abnormal uterine bleeding [N93.9] Order(s):PELVIC US I [[id number]] Order #: [id number]: 1 FUTURE Prescriptions as of 05/16/2024 - norgestimate 0.25 mg-ethinyl estradiol 35 mcg (SPRINTEC) 0.25-35 mg-mcg per tablet Take 1 tablet by mouth once daily. - albuterol HFA (PROVENTIL HFA, VENTOLIN HFA) 90 mcg/actuation inhaler Inhale 2 Puffs as instructed every 6 hours as needed for wheezing/shortness of breath. - Brompheniramine-Pseud oeph-DM (BROMFED DM) 2-30-10 mg/5 mL syrup Take 5 mL by mouth four times a day as needed. - fluticasone (FLONASE) 50 mcg/actuation nasal spray Use 2 Sprays in each nostril once daily. Rinse mouth after use. - sertraline (ZOLOFT) 100 mg tablet Take 1 tablet by mouth once daily. Dose change, take 1 daily - fluticasone (FLONASE) 50 mcg/actuation nasal spray Use 2 Sprays in each nostril once daily. Rinse mouth after use. - benzonatate (TESSALON PERLE) 100 mg capsule Take 1-2 capsules by mouth three times a day as needed. - sod bicarb-sod chlor-neti pot (NEILMED NASAFLO) pkdv 1 Each by sinus irrigation route two times a day as needed (for sinus congestion and drainage). - hydrOXYzine HCl (ATARAX) 10 mg tablet Take 1-2 tablets by mouth three times a day as needed for anxiety. - buPROPion XL (WELLBUTRIN XL) 150 mg 24 hr tablet Take 1 tablet by mouth once daily. - ondansetron orally disintegrating (ZOFRAN ODT) 4 mg disintegrating tablet Take 1 tablet by mouth every 6 hours as needed for nausea/vomiting. - cholecalciferol (VITAMIN D3) 5,000 unit tab Take 1 tablet by mouth once daily. - Magnesium 250 mg tab Take 2 tablets by mouth once daily. for anxiety / depression - ibuprofen (MOTRIN) 200 mg tablet Take 4 tablets by mouth every 8 hours as needed for pain (headache). Take with food. - albuterol HFA (PROAIR HFA) 90 mcg/actuation inhaler Inhale 2 Puffs as instructed every 6 hours as needed. Problem List As Of Date 05/16/2024 Noted Resolved Fibromyalgia [JAL8762] 08/20/2007 Anxiety and depression [F41.9, F32.A] History of depression [Z86.59] 12/06/2017 08/26/2019 At risk for depression [Z91.89] 04/24/2018 08/26/2019 Anxiety [F41.9] 04/24/2018 Numbness and tingling of lower extremity [R20.0*05/28/2018 29 weeks gestation of [Z3A.29] 05/28/2018 08/26/2019 Excessive growth affecting management of *07/22/2018 08/26/2019 Polyhydramnios in third trimester [O40.3XX0] 07/22/2018 08/26/2019 Acute back pain with sciatica, left [M54.42] 01/01/2019 08/26/2019 Class 2 obesity with body mass index (BMI) of 3*09/19/2021 Encounter Status:Closed by SUJIT BASS on 05/16/24 Normal [facility] Carbon dioxide, total [Moles /volume] in Central venous bloodOrdered By: Stanley Norris on 05-16-2024 CO2 [Moles/Vol] 21.5 mmol/L 21.0-32.0 [facility] Chloride assayOrdered By: Yoselin Norris on 05-16-2024 Chloride [Moles/Vol] 106 mmol/L 98-108 [facility] Emergency Department Summary on 05-16-2024 Emergency Department Summary [facility] Medical Records Department [address] [place] [address] Emergency Department Summary 05/16/24 MR#: [id number] Acct: [id number] Name: SASHA RACHEL Rep #: [id number] : 1985 39 From: Stanley Norris DO PCP: Dr. Hung Rivero MD Status:DEP ER Location: ED HPI HPI - Female History of Present Illness Chief Complaint: Vag Bleeding Informant: patient Narrative Narrative: Patient is a 39-year-old female who states for the past 4 to 5 months her menstrual cycle has been abnormal. She states that she saw her NURSING INSTRUCTOR secondary to this and was placed back on control medication and attempt to stabilize her hormone levels. She states she has been taking this as directed but there has been no improvement of symptoms. She states she had a normal cycle roughly 7 to 10 days ago. She states that this ran his normal course and stopped but then over the last few days she has had return of vaginal bleeding with passage of large clots. She denies any vaginal discharge or concern for STD. She denies any history of bleeding disorder or blood thinner use. She states that there has been no lightheadedness with position change or syncope. However because of the persistent bleeding she presents for evaluation. [facility] Medical History Fibromyalgia Gave to child recently Anxiety Home Medications ???Medication ???Instructions ???Recorded ???Last Taken ???Type norgestimate 0.25 mg-ethinyl 1 ea PO DAILY 09/11/19 Unknown His tory estradiol 35 mcg tablet sertraline 50 mg tablet 50 mg PO DAILY 09/11/19 Unknown Hi story ondansetron 4 mg disintegrating 4 mg PO Q6H PRN nausea and 2 Unknown Rx tablet vomiting #14 tabs hydroxyzine HCl 10 mg tablet 10 - 20 mg PO TID PRN PRN anxiety 05/16/24 Unknown History Allergy/AdvReac Type Severity Reaction Status Date / Time cat dander (cats) Allergy WATERY Verified 05/16/24 01:25 EYES, CONGESTION grass pollen Allergy Other Verified 05/16/24 01:25 mold Allergy Other Verified 05/16/24 01:25 Family History Other Breast cancer Hypertension Surgical History History of tonsillectomy Social History Smoking Status: Never smoker alcohol intake: never substance use type: does not use what type of physical activity do you participate in: walking frequency: 1-2 times per week ROS ROS ED Constitutional Constitutional ED: Denies chills or fever(s) Eyes Eyes: Denies blurry vision or change in vision ENT ENT ED: Denies sore throat Cardiovascular Cardiovascular: Reports other Details: Negative syncope ; Denies chest pain, palpitations or racing heartbeat Respiratory/Chest Respiratory/Chest: Denies cough or dyspnea Gastrointestinal Gastrointestinal: Reports abdominal pain; Denies diarrhea, nausea or vomiting Genitourinary Genitourinary ED: Reports hematuria and other Details: Positive vaginal bleeding ; Denies dysuria Musculoskeletal Musculoskeletal: Denies myalgias Integumentary Denies rash Neurologic Neurologic: Denies headache(s) or weakness Psychiatric Psychiatric: Reports anxiety Hematologic/Lymphatic Hematologic/Lymphatic : Denies easy bleeding or easy bruising EXAM Physical Exam Const Vital Signs: 05/16/24 01:21 05/16/24 03:20 Temperature 98.3 F 98.3 F Temperature Source Temporal Pulse Rate 88 55 L Respiratory Rate 16 18 Blood Pressure 144/88 H 130/80 H Blood Pressure Mean 106 96 Pulse Ox 99 98 Oxygen Delivery Method Room Air Positive well nourished, well developed and obese General Appearance ED: well developed; Negative for pallor Nutritional Appearance: obese HEENT HEENT Narrative: Normocephalic atraumatic Eyes PERRL and EOMs intact bilaterally General Eye ED: Negative for pale conjunctiva or scleral icterus Neck supple Resp normal respiratory effort and clear to auscultation bilaterally Cardio regular rate and regular rhythm Rate: other Other Details: Heart is regular rate and rhythm without murmurs rubs or gallop Radial and carotid pulses are equal and symmetric GI soft to palpation, non-distended and no masses GI Narrative: Abdomen is soft and nondistended with normal active bowel sounds. There is mild diffuse pain on palpation without voluntary guarding or rigidity or pulsatile mass. No organomegaly noted. Auscultation: normoactive bowel sounds Palpation: soft Narrative: There are clots present at the vaginal opening. The speculum exam reveals multiple clots within the vaginal vault. Once these were removed there is approximate half (more content not included)... Normal [facility] Eosinophil percentageOrdered By: Stanley Norris on 05-16-2024 Eosinophils/100 WBC (Bld) 2.4 % 0-5 [facility] Erythrocyte distribution wid th (RBC) [Ratio]Ordered By: Stanley Norris on 05-16-2024 Erythrocyte distribution width (RBC) [Entitic vol] 48.0 fL High 35.1-43.9 [facility] Erythrocyte distribution wid th ratioOrdered By: Stanley Norris on 05-16-2024 Erythrocyte distribution width (RBC) [Ratio] 14.1 % 11.6-14.6 [facility] Estimation of creatinine ida aranceOrdered By: Stanley Norris on 05-16-2024 Estimated Creatinine Clearance Calc 129.71 ml/min 50-250 [facility] GFR/1.73 sq M.predicted efraín g non-blacks MDRD (S/P/Bld) [Vol rate/Area]Ordered By: Stanley Norris on 05-16-2024 Estimated GFR (MDRD) Non-Af Amer 98 >60 [facility] Comment on above: mL/min/1.73m2 CKD-EP I Creatinine Equation (2020) Hematocrit Auto (Bld) [Volum e fraction]Ordered By: Stanley Norris on 05-16-2024 Hematocrit (Bld) [Volume fraction] 36.0 % Low 37-47 [facility] Hemoglobin measurementOrdere d By: Stanley Norris on 05-16-2024 Hemoglobin (Bld) [Mass/Vol] 11.7 g/dL Low 12.0-15.0 [facility] Immature granulocytes/100 WB C Auto (Bld)Ordered By: Stanley Norris on 05-16-2024 Immature granulocytes/100 WBC (Bld) 0.200 % 0.0-0.9 [facility] Comment on above: IG% - Immature Granu locytes (promyelocytes, myelocytes and metamyelocytes) > 1% indicates that a LEFT SHIFT is Present. International normalized rat io (INR) calculationOrdered By: Stanley Norris on 05-16-2024 INR Coag (Bld) [Relative time] 1.0 {INR} [facility] Lymphocytes Auto (Unsp spec) [#/Vol]Ordered By: Stanley Norris on 05-16-2024 Lymphocytes (Bld) [#/Vol] 3.31 10*3/uL 0.83-4.51 [facility] Lymphocytes/100 WBC Auto (Un sp spec)Ordered By: Stanley Norris on 05-16-2024 Lymphocytes/100 WBC (Bld) 38.3 % 19-41 [facility] MCV (mean corpuscular volume ) determinationOrdered By: Stanley Norris on 05-16-2024 MCV (RBC) [Entitic vol] 92.1 fL 81-99 [facility] Manual differential comment Christiano (Bld) [Interp]Ordered By: Stanley Norris on 05-16-[address] [facility] Mean corpuscular hemoglobin (MCH) determinationOrdered By: Stanley Norris on 05-16-2024 MCH (RBC) [Entitic mass] 29.9 pg 27.0-32.0 [facility] Mean corpuscular hemoglobin concentration (MCHC) determinationOrdered By: Stanley Norris on 05-16-2024 MCHC (RBC) [Mass/Vol] 32.5 g/dL 32-[address] [facility] Mean platelet volume determi nationOrdered By: Stanley Norris on 05-16-2024 Platelet mean volume (Bld) [Entitic vol] 10.2 fL 6.2-12.0 [facility] Monocyte percentageOrdered B y: Stanley Norris on 05-16-2024 Monocytes/100 WBC (Bld) 10.2 % High 0-10 [facility] Neutrophil percentageOrdered By: Stanley Norris on 05-16-2024 Neutrophils/100 WBC (Bld) 48.7 % 47-70 [facility] Nucleated red blood cell per centageOrdered By: Stanley Norris on 05-16-2024 Nucleated RBC/100 WBC (Bld) [Ratio] 0 % 0-5 [facility] Partial Thromboplast Timeon 05-16-2024 aPTT Coag (Bld) [Time] 27.8 s Normal 24.1-36.2 [facility] Comment on above: Performed By: #### L 500.2500, L300.3900, L100.0100, L700.6800, L300.4310 #### [facility] [address] [place], [place] [address] [place], [place], [id number] Platelet countOrdered By: Yoselin Norris on 05-16-2024 Platelets (Bld) [#/Vol] 236 10*3/uL 150-450 [facility] Potassium (Unsp spec) [Mass/ Vol]Ordered By: Stanley Norris on 05-16-2024 Potassium [Moles/Vol] 4.1 mmol/L 3.3-5.[address] [facility] ,Serum,hCG Quali.on 05-16-2024 HCG, SERUM QUAL Negative Normal [facility] Comment on above: Performed By: #### L 500.2500, L300.3900, L100.0100, L700.6800, L300.4310 #### [facility] [address] [place], [address] Prothrombin Time w/INRon INR Coag (PPP) [Relative time] 1.0 {INR} Normal [facility] Comment on above: Performed By: #### L 500.2500, L300.3900, L100.0100, L700.6800, L300.4310 #### [facility] [address] [place], [address] PT Coag (PPP) [Time] 12.9 s Normal 11.7-14.9 [facility] Comment on above: Performed By: #### L 500.2500, L300.3900, L100.0100, L700.6800, L300.4310 #### [facility] [address] [place], [address] Prothrombin timeOrdered By: Stanley Norris on 05-16-2024 PT Coag (PPP) [Time] 12.9 s 11.7-14.9 [facility] RBC Auto (Bld) [#/Vol]Ordere d By: Stanley Norris on 05-16-2024 RBC (Bld) [#/Vol] 3.91 10*6/uL Low 4.2-5.4 [facility] Serum creatinine measurement (mass/volume)Ordered By: Stanley Norris on 05-16-2024 Creatinine [Mass/Vol] 0.79 mg/dL 0.70-1.[address] [facility] Serum glucose measurement (m ass/volume)Ordered By: Stanley Norris on 05-16-2024 Glucose [Mass/Vol] 88 mg/dL 70-99 [facility] Serum or plasma calcium jerry urement (mass/volume)Ordered By: Stanley Norris on 05-16-2024 Calcium [Mass/Vol] 8.7 mg/dL 7.6-11.0 [facility] Serum or plasma urea nitroge n measurement (mass/volume)Ordered By: Stanley Norris on 05-16-2024 Urea nitrogen [Mass/Vol] 20 mg/dL High 4-19 [facility] Sodium levelOrdered By: Carlos Eduardo Norris on 05-16-2024 Sodium [Moles/Vol] 138 mmol/L 133-145 [facility] US Pelvison 05-16-2024 Indication Abnormal uterine bleeding, heavy bleeding with clots Impression Anteverted uterus with thickened endometrium. There is a hyperechoic focus with vascular stalk within the endometrium likely representing a single large polyp, 29 mm x 18 mm x 11 mm. No focal myometrial lesions Right Ovary is not visualized. Left Ovary is normal. Cul de sac is normal with no free fluid. Recommendations Consider hysteroscopic evaluation and management of intracavitary lesion if clinically indicated. Menstrual History Cycle: LMP date not known. Bleeding: metrorrhagia. Contraception: combined oral contraceptive pill Method Transabdominal, transvaginal, 3D ultrasound examination, Color Doppler examination. View: Suboptimal view: restricted by increased bowel activity Uterus Uterus: Visualized Uterus position: anteverted Description of uterine malformations: none Endometrium: inhomogenous with vascularity throughout, possible polyp Cervix details: cystic lesions identified suggesting superficial Nabothian cysts Uterus length 99 mm Uterus width 59 mm Uterus height 49 mm Uterus Vol 151.3 cm Endometrial thickness, total 18.6 mm Fibroids: No fibroids identified Uterine polyp D1 29 mm Uterine polyp D2 18 mm Uterine polyp D3 11 mm Uterine polyp mean 19.3 mm Doppler: vascular flow visualized Uterine polyp findings: Anterior Right Ovary Rt ovary: Not visualized Left Ovary Lt ovary: Visualized Lt ovary morphology: premenopausal normal follicular Lt ovary D1 28 mm Lt ovary D2 17 mm Lt ovary D3 13 mm Lt ovary Vol 3.2 cm Cul de Sac Visualized. no free fluid visualized Performed By: Beulah Hopkins RDMS Read By: Jennifer Van M.D. MATERNAL MEDICINE [facility] Study observation (narrative) Katharina baron [facility] White blood cell (WBC) count Ordered By: Stanley Norris on 05-16-2024 WBC (Bld) [#/Vol] 8.6 10*3/uL 4.4-11.0 [facility] aPTT Coag (PPP) [Time]Ordere d By: Stanley Norris on 05-16-2024 aPTT Coag (Bld) [Time] 27.8 s 24.1-36.2 [facility] POLYSOMNOGRAM (PSG)/HOME SLE EP APNEA TEST (HSAT)on 05-10-2024 POLYSOMNOGRAM (PSG)/HOME SLEEP APNEA TEST (HSAT) [facility] [address] [place] [address], [address], [place] [address] ; Home Sleep Apnea Test (HSAT) Study Report Name: SASHA RACHEL Date of Study: 05/10/2024 [facility]#: [id number] Age: 39 (: 1985) ESS: 11/28 Neck Circ. (cm): 36.0 Height (cm): 172.7 Weight (kg): 114.5 BMI: 38.4 Referring Provider: HUNG RIVERO Mailcode: [id number] Sleep history: The patient is a 39 year old female with a history of daytime sleepiness, fatigue, multiple awakenings from sleep, and waking up with dry mouth/sore throat. The patient is here for assessment of obstructive sleep apnea. The patient endorses being a habitual prone sleeper. Pertinent medical history: Allergic Rhinitis, Depression, Obesity, Fibromyalgia. Medications: Sertraline, Hydroxyzine Sleep procedure: PSG unattended Type III, minimum of 4 parameters (33367) Procedure: This study was performed using a Type III ambulatory PSG device and was unattended. The patient was instructed on proper use of the device by a registered medical technologist chief. The monitored parameters included heart rate, oxygen saturation, continuous airflow with thermistor and nasal pressure transducer, snoring via nasal pressure transducer, chest and abdominal effort, and body position. JALEN definition: Respiratory event index (JALEN), calculated as respiratory events x 60 / TRT (total recording time in minutes). Note: the apnea hypopnea index has been replaced by the respiratory event index for home sleep apnea test. Since the home sleep apnea test does not measure sleep, the JALEN is most accurate index of respiratory events. The JALEN is a surrogate of the AHI per the AASM Manual for Scoring of Sleep and Associated Events version 3. Apnea definition: The peak signal excursions drop by >90% of pre-event baseline using an oronasal thermal sensor (diagnostic study), PAP device flow (titration study) or an alternative apnea sensor (diagnostic study). The duration of the >90% drop in signal excursion is >=10 seconds. Hypopnea definition: The peak signal excursions drop by >= 30% of pre-event baseline using nasal pressure (diagnostic study), PAP device flow (titration study) or an alternative hypopnea sensor (diagnostic study). The duration of the >= 30% drop in signal excursion is >=10 seconds. There is a greater than or equal to 3% oxygen desaturation from pre-event baseline. RESPIRATORY DATA: The study started at 19:29:21 and ended at 03:41:39 and the total recording time was 492 minutes. By convention, sleep is assumed for the whole recording. Snoring was noted. There was a total of 100 respiratory events. Of these events, the total number of apneas was 5 (4 obstructive, 0 mixed, and 1 central (1.0%)) and 95 hypopneas. The central apnea index (YODIT) was 0.1. The respiratory event index (JALEN) was 12.2 events per hour of study time. The mean oxygen saturation during the study was 94.0%, with a minimum oxygen saturation of 78.0%. The patient spent 7.8 minutes at oxygen saturation measured less than 90% (1.7% of recording time) and 5.3 minutes at oxygen saturation measured at or less than 88% (1.1% of recording time). Time JALEN/AHI Supine 100.0 min 31.8 Off-Supine 392.5 min 7.2 Total 492.5 min 12.2 ECG DATA: The average heart rate was 71 bpm with a range of 56 bpm to 106 bpm. ICSD DIAGNOSIS: Obstructive Sleep Apnea Syndrome [G47.33] IMPRESSION/RECOMMENDA TIONS: 1. This study confirms a diagnosis of at least mild obstructive sleep apnea exacerbated to the severe range in supine sleep. 2. The results of this study may represent an underestimation of the degree of obstructive sleep apnea, especially hypopneas, because of the known limitations of HSAT, such as inability to record arousals because EEG is not recorded. 3. Treatment of mild sleep apnea can include weight loss, positional therapy, treatment of allergies, oral appliance therapy or ENT evaluation of any airway abnormalities. PAP therapy may be considered in patients with documented symptoms of daytime sleepiness, impaired cognition, mood disorder, insomnia, or documented hypertension, ischemic heart disease, or history of stroke. INTERPRETING PHYSICIAN: Anne Calle M.D. I attest that I have performed epoch by epoch review of the entire raw data and find this study to be technically adequate. Report Digitally Signed By: ANNE CALLE MD (05/20/2024 3:08:29 PM) Normal [facility] XR Lumbar spine Views W flex ion and W extensionon 04-27-2024 * * *Final Report* * * DATE OF EXAM: Apr 24 2024 11:09AM WOX [id number] - XR LUMBAR 4V AP/LAT/ FLEX/EXT / PROCEDURE REASON: multiple diagnoses * * * * Physician Interpretation * * * * PROCEDURE: Lumbar spine INDICATION: Numbness and tingling of lower extremity Chronic midline low back pain with left-sided sciatica.numbness in legs for 2 months and pain in center L5 no inj TECHNIQUE: XR LUMBAR 4V AP/LAT/ FLEX/EXT COMPARISON: 12/24/2018 FINDINGS: Normal alignment without acute fracture or subluxation. No abnormal translation with flexion or extension. Mild L1-2 and L2-3 degenerative disc disease, slightly greater than previous. No pars defects or significant facet arthrosis. Sacroiliac joints are unremarkable. 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 No abnormal translation with flexion or extension. Mild L1-2 and L2-3 degenerative disc disease, slightly greater than previous. No pars defects or significant facet arthrosis. Sacroiliac joints are unremarkable. IMPRESSION IMPRESSION: Mildly progressive upper lumbar degenerative disc disease Factory Engineer: AYSE Transcribe Date/Time: Apr 27 2024 12:00P Dictated by : ERIC ARREAGA MD This examination was interpreted and the report reviewed and electronically signed by: ERIC ARREAGA MD on Apr 27 2024 12:02PM [facility] XR Lumbar spine Views W flex ion and W extensionOrdered By: [facility] Provider on 04-27-2024 [place] CNOVon 04-24-2024 CNOV Office Visit (UCWSTR ) SASHA RACHEL ([id number]) 1985 F Date Time Provider Department 04/24/24 10:30 AM [facility] During your visit today, we recorded the following information about you: Temperature Pulse Respiration Blood pressure 98.1 degrees 93/minute 16/minute 140/72 Weight 116 kg Bridget Reyes APRN.AIR DEFENCE OFFICER 04/24/2024 11:32 AM Signed [facility] Subjective Sasha Rachel is a 39 year old female. No chief complaint on file. Patient came in with complaints of cough congestion patient says has been about 6 days seems to be getting worse. Patient says she is more short of breath now than she was. Patient says when she lays flat it is worse and when she is sitting up. Patient was exposed to pneumonia about a week ago. Patient denies any other symptoms. The history is provided by the patient. No speech and language tutor was used. Review of Systems Constitutional: Negative. HENT: Negative. Objective BP 140/72 Pulse 93 Temp 36.7 ?C (98.1 ?F) Resp 16 Wt 116 kg (255 lb 11.7 oz) LMP 04/04/2024 (Within Days) SpO2 97% BMI 38.88 kg/m? Physical Exam Constitutional: Appearance: Normal appearance. HENT: Right Ear: Tympanic membrane, ear canal and external ear normal. Left Ear: Tympanic membrane, ear canal and external ear normal. Mouth/Throat: Mouth: Mucous membranes are moist. Pharynx: Oropharynx is clear. Eyes: Pupils: Pupils are equal, round, and reactive to light. Cardiovascular: Rate and Rhythm: Normal rate and regular rhythm. Heart sounds: Normal heart sounds. Pulmonary: Effort: Pulmonary effort is normal. Breath sounds: Wheezing present. Neurological: Mental Status: She is alert. PAST MEDICAL HISTORY Diagnosis Date Abnormal Pap smear of cervix 2004 Allergic rhinitis due to other allergen Depressive disorder, not elsewhere classified Fibromyalgia Food poisoning 2014 Irritable bowel syndrome Myalgia and myositis, unspecified Other chronic sinusitis PAST SURGICAL HISTORY Procedure Laterality Date HYSTEROSCOPY BX ENDOMETRIUMAND/POLYPC W/WO [facility] 09/18/2019 hysteroscopy [facility] for AUP TONSILLECTOMY AND ADENOIDECTOMY AGE 12/> 1996 ALLERGIES Mold and Seasonal Allergies MEDICATIONS norgestimate 0.25 mg-ethinyl estradiol 35 mcg (SPRINTEC) 0.25-35 mg-mcg per tablet Take 1 tablet by mouth once daily. methylPREDNISolone (MEDROL, ASHLEY,) 4 mg Dose-Pack As instructed per package sertraline (ZOLOFT) 100 mg tablet Take 1 tablet by mouth once daily. Dose change, take 1 daily fluticasone (FLONASE) 50 mcg/actuation nasal spray Use 2 Sprays in each nostril once daily. Rinse mouth after use. benzonatate (TESSALON PERLE) 100 mg capsule Take 1-2 capsules by mouth three times a day as needed. sod bicarb-sod chlor-neti pot (NEILMED NASAFLO) pkdv 1 Each by sinus irrigation route two times a day as needed (for sinus congestion and drainage). hydrOXYzine HCl (ATARAX) 10 mg tablet Take 1-2 tablets by mouth three times a day as needed for anxiety. buPROPion XL (WELLBUTRIN XL) 150 mg 24 hr tablet Take 1 tablet by mouth once daily. ondansetron orally disintegrating (ZOFRAN ODT) 4 mg disintegrating tablet Take 1 tablet by mouth every 6 hours as needed for nausea/vomiting. cetirizine (ZYRTEC) 10 mg tablet Take 1 tablet by mouth once daily. cholecalciferol (VITAMIN D3) 5,000 unit tab Take 1 tablet by mouth once daily. Magnesium 250 mg tab Take 2 tablets by mouth once daily. for anxiety / depression ibuprofen (MOTRIN) 200 mg tablet Take 4 tablets by mouth every 8 hours as needed for pain (headache). Take with food. albuterol HFA (PROAIR HFA) 90 mcg/actuation inhaler Inhale 2 Puffs as instructed every 6 hours as needed. FAMILY HISTORY Problem Relation Age of Onset Breast Cancer Mother other (hypercholesterolemia ) Mother diet controlled Obesity Mother other (hysterectomy) Mother Parkinson?s Disease Father Prostate Cancer Father Obesity Father other (overweight) Sister Heart Maternal Grandmother Obesity Maternal Grandmother Psychiatry Maternal Grandfather Obesity Maternal Grandfather Hypertension Paternal Grandmother Heart Paternal Grandmother Obesity Paternal Grandmother Heart Paternal Grandfather Obesity Paternal Grandfather Autism Son Social History Tobacco Use Smoking status: Never Smokeless tobacco: Never Vaping Use Vaping status: Never Used Substance Use Topics Alcohol use: Yes Comment: Occasionally, but not while Drug use: No {ASSESSMENT/PLAN: 1. Acute cough - ICD9: 786.2, ICD10: R05.1 (primary diagnosis) - XR CHEST 2V FRONTAL/LAT - neg - ALBUTEROL SULFATE HFA 90 MCG/ACTUATION AEROSOL INHALER - BROMPHENIRAMINE-PSEUD OEPHEDRINE-DM 2 MG-30 MG-10 MG/5 ML ORAL SYRUP 2. Sinus congestion - ICD9: 478.19, ICD10: R09.81 - FLUTICASONE PROPIONATE 50 MCG/ACTUATION NASAL SPRAY,SUSPENSION - D (more content not included)... Normal [facility] CNOV Office Visit (OBMIKEYWM ) SASHA RACHEL ([id number]) 1985 F Date Time Provider Department 04/24/24 9:30 AM ADRIANA CLARK During your visit today, we recorded the following information about you: Blood pressure Weight 132/82 115.2 kg Adriana Clark APRN.AIR DEFENCE OFFICER 04/24/2024 8:32 PM Signed Solar Lab Technician offered: Patient declines. Sasha Rachel is a 39 year old female who presents for problem visit irregular menstrual cycle for 3 week(s). Spotting and now a heavy period for 3 weeks. HPI: Menses beginning of February. Daily pink spotting started the end of March and changed to normal heavy menstrual flow 2 days ago. Has passed some clots which usually happens when she is on prednisone which she started a couple of days ago. Has been under a lot of stress lately. Stopped taking LAISHA around February - unsure of exactly when. Stopped because menses were becoming so light. Usual menstrual cycle every 30 days lasting 4 days. Has not been sexually active for 6-8 months. 09/[address] [facility] [address] Nicole. No discrete endometrial polyp was noted. Pathology benign. OB History Gravida1 Para1 Term1 Preterm0 AB0 Living1 SAB0 IAB0 Ectopic0 Multiple0 Live Births1 [place] History LMP: 04/04/2024 (Within Days), Having periods Age at Menarche: Age at First : Age at Menopause: S[place] [employer]er History Comments: Sexual Activity: Yes; Male Contraception: No contraception data on record PAST MEDICAL HISTORY Diagnosis Date Abnormal Pap smear of cervix 2004 Allergic rhinitis due to other allergen Depressive disorder, not elsewhere classified Fibromyalgia Food poisoning 2014 Irritable bowel syndrome Myalgia and myositis, unspecified Other chronic sinusitis PAST SURGICAL HISTORY Procedure Laterality Date HYSTEROSCOPY BX ENDOMETRIUMAND/POLYPC W/WO DAND[facility] 09/18/2019 hysteroscopy [facility] for AUP TONSILLECTOMY AND ADENOIDECTOMY AGE 12/> 1996 FAMILY HISTORY Problem Relation Age of Onset Breast Cancer Mother other (hypercholesterolemia ) Mother diet controlled Obesity Mother Parkinson?s Disease Father Prostate Cancer Father Obesity Father other (overweight) Sister Heart Maternal Grandmother Obesity Maternal Grandmother Psychiatry Maternal Grandfather Obesity Maternal Grandfather Hypertension Paternal Grandmother Heart Paternal Grandmother Obesity Paternal Grandmother Heart Paternal Grandfather Obesity Paternal Grandfather Autism Son Social History Tobacco Use Smoking status: Never Smokeless tobacco: Never Vaping Use Vaping status: Never Used Substance Use Topics Alcohol use: Yes Comment: Occasionally, but not while Drug use: No Current Outpatient Medications Medication Sig methylPREDNISolone (MEDROL, ASHLEY,) 4 mg Dose-Pack As instructed per package sertraline (ZOLOFT) 100 mg tablet Take 1 tablet by mouth once daily. Dose change, take 1 daily fluticasone (FLONASE) 50 mcg/actuation nasal spray Use 2 Sprays in each nostril once daily. Rinse mouth after use. benzonatate (TESSALON PERLE) 100 mg capsule Take 1-2 capsules by mouth three times a day as needed. sod bicarb-sod chlor-neti pot (NEILMED NASAFLO) pkdv 1 Each by sinus irrigation route two times a day as needed (for sinus congestion and drainage). hydrOXYzine HCl (ATARAX) 10 mg tablet Take 1-2 tablets by mouth three times a day as needed for anxiety. buPROPion XL (WELLBUTRIN XL) 150 mg 24 hr tablet Take 1 tablet by mouth once daily. norgestimate 0.25 mg-ethinyl estradiol 35 mcg (SPRINTEC) 0.25-35 mg-mcg per tablet Take 1 tablet by mouth once daily. ondansetron orally disintegrating (ZOFRAN ODT) 4 mg disintegrating tablet Take 1 tablet by mouth every 6 hours as needed for nausea/vomiting. cetirizine (ZYRTEC) 10 mg tablet Take 1 tablet by mouth once daily. cholecalciferol (VITAMIN D3) 5,000 unit tab Take 1 tablet by mouth once daily. Magnesium 250 mg tab Take 2 tablets by mouth once daily. for anxiety / depression ibuprofen (MOTRIN) 200 mg tablet Take 4 tablets by mouth every 8 hours as needed for pain (headache). Take with food. albuterol HFA (PROAIR HFA) 90 mcg/actuation inhaler Inhale 2 Puffs as instructed every 6 hours as needed. No current facility-administered medications for this visit. Allergies As of Date: 04/24/2024 Allergen Noted Reaction MOLD 09/18/2019 Other: See Comments SEASONAL ALLERGIES 07/02/2020 Other: See Comments Fully Assessed 04/19/2024 REVIEW OF SYSTEMS Abdomen: No bloating, early satiety, indigestion, or increased flatulence. No abdominal pain, nausea, vomiting, diarrhea, or constipation. Allergies and current medication updated:Yes SENSITIVE EXAM: The sensitive examination was discussed with the Patient or Patient's Authorized Head Nurse. As applicable, any other physician, advance practice provider, medical student, or other health professional studen (more content not included)... Normal [facility] No Panel Informationon 04-24 Radiology Study observation (narrative) [facility] CHEST 2V FRONTAL/LATon XR CHEST 2V FRONTAL/LAT * * *Final Repor t* * * DATE OF EXAM: Apr 24 2024 11:08AM WOX [id number] - XR CHEST 2V FRONTAL/LAT / PROCEDURE REASON: Acute cough * * * * Physician Interpretation * * * * EXAMINATION: CHEST RADIOGRAPH (2 VIEW FRONTAL and LATERAL) TECHNOLOGIST PROVIDED HISTORY: cough, congestion and some wheezing for a few days CLINICAL HISTORY: 39 years old Female with Acute cough MQ: XC2_6 EXAM DATE/TIME: 04/24/2024 11:08 AM COMPARISON: Chest radiograph(s) dated 07/27/2021 RESULT: Lines, tubes, and devices: None. Lungs and pleura: No consolidation. No pleural effusion. No pneumothorax. Cardiomediastinal silhouette: Normal cardiomediastinal silhouette. Bones and soft tissues: Unremarkable. IMPRESSION: No acute radiographic abnormality. Factory Engineer: AYSE Transcribe Date/Time: Apr 24 2024 11:10A Dictated by : JORDIN CROWE DO This examination was interpreted and the report reviewed and electronically signed by: JORDIN CROWE DO on Apr 24 2024 11:18AM EST [id number] Normal [facility] XR Chest PA and Lateralon IMPRESSION: No acute radiographic abnormality. Factory Engineer: AYSE Transcribe Date/Time: Apr 24 2024 11:10A Dictated by : JORDIN CROWE DO This examination was interpreted and the report reviewed and electronically signed by: JORDIN CROWE DO on Apr 24 2024 11:18AM EST DIVISION OF RADIOLOGY * * *Final Report* * * DATE OF EXAM: Apr 24 2024 11:08AM WOX [id number] - XR CHEST 2V FRONTAL/LAT / PROCEDURE REASON: Acute cough * * * * Physician Interpretation * * * * EXAMINATION: CHEST RADIOGRAPH (2 VIEW FRONTAL & LATERAL) TECHNOLOGIST PROVIDED HISTORY: cough, congestion and some wheezing for a few days CLINICAL HISTORY: 39 years old Female with Acute cough MQ: XC2_6 EXAM DATE/TIME: 04/24/2024 11:08 AM COMPARISON: Chest radiograph(s) dated 07/27/2021 RESULT: Lines, tubes, and devices: None. Lungs and pleura: No consolidation. No pleural effusion. No pneumothorax. Cardiomediastinal silhouette: Normal cardiomediastinal silhouette. Bones and soft tissues: Unremarkable. DIVISION OF RADIOLOGY Provider, Aaron graves [place] - 04/24/2024 * * *Final Report* * * DATE OF EXAM: Apr 24 2024 11:08AM WOX [id number] - XR CHEST 2V FRONTAL/LAT / PROCEDURE REASON: Acute cough * * * * Physician Interpretation * * * * EXAMINATION: CHEST RADIOGRAPH (2 VIEW FRONTAL & LATERAL) TECHNOLOGIST PROVIDED HISTORY: cough, congestion and some wheezing for a few days CLINICAL HISTORY: 39 years old Female with Acute cough MQ: XC2_6 EXAM DATE/TIME: 04/24/2024 11:08 AM COMPARISON: Chest radiograph(s) dated 07/27/2021 RESULT: Lines, tubes, and devices: None. Lungs and pleura: No consolidation. No pleural effusion. No pneumothorax. Cardiomediastinal silhouette: Normal cardiomediastinal silhouette. Bones and soft tissues: Unremarkable. IMPRESSION IMPRESSION: No acute radiographic abnormality. Factory Engineer: PSCB Transcribe Date/Time: Apr 24 2024 11:10A Dictated by : JORDIN CROWE DO This examination was interpreted and the report reviewed and electronically signed by: JORDIN CROWE DO on Apr 24 2024 11:18AM EST [place] XR Chest PA and LateralOrder ed By: [facility] Provider on 04-24-2024 [place] XR LUMBAR 4V AP/LAT/ FLEX/EX Ton 04-24-2024 XR LUMBAR 4V AP/LAT/ FLEX/EXT * * *Final Report* * * DATE OF EXAM: Apr 24 2024 11:09AM WOX [id number] - XR LUMBAR 4V AP/LAT/ FLEX/EXT / PROCEDURE REASON: multiple diagnoses * * * * Physician Interpretation * * * * PROCEDURE: Lumbar spine INDICATION: Numbness and tingling of lower extremity Chronic midline low back pain with left-sided sciatica.numbness in legs for 2 months and pain in center L5 no inj TECHNIQUE: XR LUMBAR 4V AP/LAT/ FLEX/EXT COMPARISON: 12/24/2018 FINDINGS: Normal alignment without acute fracture or subluxation. No abnormal translation with flexion or extension. Mild L1-2 and L2-3 degenerative disc disease, slightly greater than previous. No pars defects or significant facet arthrosis. Sacroiliac joints are unremarkable. IMPRESSION: Mildly progressive upper lumbar degenerative disc disease Factory Engineer: MOIZB Transcribe Date/Time: Apr 27 2024 12:00P Dictated by : ERIC ARREAGA MD This examination was interpreted and the report reviewed and electronically signed by: ERIC ARREAGA MD on Apr 27 2024 12:02PM EST [id number] Normal [facility] CNOVon 04-19-2024 CNOV Office Visit (INTMWS ) SASHA RACHEL ([id number]) 1985 F Date Time Provider Department 04/19/24 10:40 AM HUNG RIVERO INTMWS During your visit today, we recorded the following information about you: Temperature Pulse Respiration Blood pressure 97.3 degrees 76/minute 14/minute 122/72 Weight Height Last Period 115.3 kg 1.727 m 04/04/24 Hnug Rivero MD 05/08/2024 11:04 PM Signed This note was created using [facility]. Subjective Sasha Rachel is a 39 year old female. Patient presents with: F/U 6 months: leg numbness SUBJECTIVE: Sasha Rachel is a 39 year old year old lady here today for 6 month follow up appointment for review of medical conditions. Sasha is a 39-year-old female presenting for a 6-month follow-up, with ongoing concerns of bilateral anterior thigh numbness and light menstrual periods. Sasha reports persistent bilateral anterior thigh numbness that occurs after standing for more than 20 minutes. She denies any correlation between the numbness and her menstrual cycle. She has consulted with her OB, who suggested the possibility of a pinched nerve but did not find any gynecological cause for the numbness. Sasha has an upcoming appointment with Adriana Clark for further evaluation. Sasha also reports a light menstrual period that she describes as weird and not quite right. She is seeking further evaluation for this issue as well. Sasha has been unable to see her chiropractor due to a long wait time for appointments. She is concerned about the impact of her symptoms on her ability to participate in a business conference and a family vacation, both of which involve significant walking and standing. Sasha has a history of low back pain and tailbone pain, which she attributes to a previous . She also reports occasional pain radiating down her left leg, but not her right leg. She denies any recent injuries or falls. Sasha has not been taking vitamin D supplements, despite a previous recommendation to do so. She reports low energy levels and difficulty sleeping, which she attributes to her symptoms. She is interested in exploring aquatic therapy as a potential treatment option. PAST MEDICAL HISTORY Diagnosis Date Abnormal Pap smear of cervix 2004 Allergic rhinitis due to other allergen Depressive disorder, not elsewhere classified Fibromyalgia Food poisoning 2014 Irritable bowel syndrome Myalgia and myositis, unspecified Other chronic sinusitis Current Outpatient Medications Medication Sig sertraline (ZOLOFT) 100 mg tablet Take 1 tablet by mouth once daily. Dose change, take 1 daily fluticasone (FLONASE) 50 mcg/actuation nasal spray Use 2 Sprays in each nostril once daily. Rinse mouth after use. benzonatate (TESSALON PERLE) 100 mg capsule Take 1-2 capsules by mouth three times a day as needed. sod bicarb-sod chlor-neti pot (NEILMED NASAFLO) pkdv 1 Each by sinus irrigation route two times a day as needed (for sinus congestion and drainage). hydrOXYzine HCl (ATARAX) 10 mg tablet Take 1-2 tablets by mouth three times a day as needed for anxiety. buPROPion XL (WELLBUTRIN XL) 150 mg 24 hr tablet Take 1 tablet by mouth once daily. norgestimate 0.25 mg-ethinyl estradiol 35 mcg (SPRINTEC) 0.25-35 mg-mcg per tablet Take 1 tablet by mouth once daily. ondansetron orally disintegrating (ZOFRAN ODT) 4 mg disintegrating tablet Take 1 tablet by mouth every 6 hours as needed for nausea/vomiting. cetirizine (ZYRTEC) 10 mg tablet Take 1 tablet by mouth once daily. cholecalciferol (VITAMIN D3) 5,000 unit tab Take 1 tablet by mouth once daily. Magnesium 250 mg tab Take 2 tablets by mouth once daily. for anxiety / depression ibuprofen (MOTRIN) 200 mg tablet Take 4 tablets by mouth every 8 hours as needed for pain (headache). Take with food. albuterol HFA (PROAIR HFA) 90 mcg/actuation inhaler Inhale 2 Puffs as instructed every 6 hours as needed. No current facility-administered medications for this visit. Review of Systems Objective BP 122/72 (BP Site: Right Arm, BP Position: Sitting, BP Cuff Size: Large Adult) Pulse 76 Temp 36.3 ?C (97.3 ?F) (Temporal) Resp 14 Ht 172.7 cm (5' 8) Wt 115.3 kg (254 lb 3.1 oz) LMP 04/04/2024 (Within Days) SpO2 98% BMI 38.65 kg/m? Physical Exam Constitutional: Appearance: Normal appearance. HENT: Head: Normocephalic. Eyes: Conjunctiva/sclera: Conjunctivae normal. Cardiovascular: Rate and Rhythm: Normal rate and regular rhythm. Heart sounds: Normal heart sounds. Pulmonary: Effort: Pulmonary effort is normal. Breath sounds: Normal breath sounds. Musculoskeletal: Comments: Cervical back: Neck supple. Lower legs: No edema. Lumbar spine: Tenderness noted in the lumbar spine and lower thoracic region. Tailbone: Reports chronic pain in the coccyx area. Lower extremities: Repo (more content not included)... 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 Sasha is a 39 year old who presents for an annual gynecologic exam with complaints, period now at day 45. Usually eery 30 days. No chance of . Has been rather stressed recently. Having numbness in leg when standing. Much better when in the pool. Had similar symptoms in . Discussed returning to chiropractor for evaluation. Recent labs all normal. Missed period most likely related to stress but could also be due to BMI. . Still get period: Yes MP: 02/05/2024 Menses: cycles every 30 days and 4 days of flow Menstrual flow: Moderate Bleeding amount bothersome: No Sexually active: not recently Contraception: None HPV vaccine: No HPV:negative Last pap smear: 2023 History of abnormal pap: No Last mammogram: never OB History Gravida1 Para1 Term1 Preterm0 AB0 Living1 SAB0 IAB0 Ectopic0 Multiple0 Live Births1 [place] History LMP: 02/05/2024 (Within Days), Having periods Age at Menarche: Age at First : Age at Menopause: [place] History Comments: Sexual Activity: Yes; Male Contraception: No contraception data on record PAST MEDICAL HISTORY Diagnosis Date Abnormal Pap smear of cervix 2004 Allergic rhinitis due to other allergen Depressive disorder, not elsewhere classified Fibromyalgia Food poisoning 2015 Irritable bowel syndrome Myalgia and myositis, unspecified Other chronic sinusitis PAST SURGICAL HISTORY Procedure Laterality Date HYSTEROSCOPY BX ENDOMETRIUMAND/POLYPC W/WO DANDC 09/18/2019 hysteroscopy DANDC for AUP TONSILLECTOMY AND ADENOIDECTOMY AGE 12/> 1996 FAMILY HISTORY Problem Relation Age of Onset Breast Cancer Mother other (hypercholesterolemia ) Mother diet controlled Obesity Mother Parkinson?s Disease Father Prostate Cancer Father Obesity Father other (overweight) Sister Heart Maternal Grandmother Obesity Maternal Grandmother Psychiatry Maternal Grandfather Obesity Maternal Grandfather Hypertension Paternal Grandmother Heart Paternal Grandmother Obesity Paternal Grandmother Heart Paternal Grandfather Obesity Paternal Grandfather Autism Son SOCIAL HISTORY Social History Tobacco Use Smoking status: Never Smokeless tobacco: Never Vaping Use Vaping status: Never Used Substance Use Topics Alcohol use: Yes Comment: Occasionally, but not while Drug use: No REVIEW OF SYSTEMS Abdomen: No abdominal pain, nausea, vomiting, diarrhea, or constipation. No bloating, early satiety, indigestion, or increased flatulence. Bladder: No dysuria, gross hematuria, urinary frequency, urinary urgency, or incontinence. Breast: No breast lumps, nipple d/c, overlying skin changes, redness or skin retraction. Allergies and current medication updated:Yes SENSITIVE EXAM: The sensitive examination was discussed with the Patient or Patient's Authorized Head Nurse. As applicable, any other physician, advance practice provider, medical student, or other health professional student that will be observing or involved in the sensitive examination for educational or training purposes was discussed with the Patient or Authorized Head Nurse. The Patient or Authorized Head Nurse has agreed to proceed with the sensitive examination. (Sensitive examination includes inspection and/or palpation of the breasts, pelvis, prostate and anorectal regions). EXAM: BP 120/80 Ht 5' 8 (1.73m) Wt 259 lb (117.5kg) LMP 02/05/2024 BMI 39.39 kg/(m2). GENERAL: pleasant, female in no apparent distress HEENT: Normocephalic, atraumatic, mucus membranes moist, and no lesions NECK: Supple, full range of motion, no adenopathy, and thyroid normal DERMATOLOGY: Normal, without lesions, non-icteric, and non-hirsute BREAST: soft, non-tender, symmetric, no dominant mass, normal nipple-areolar complex, no lymphadenopathy, and no nipple discharge CHEST: Normal inspiratory effort ABDOMEN: soft, non-tender, and no masses PELVIC: external genitalia normal, normal Bartholin's glands, urethra, [place]'s glands, no vulvar lesions, no cervical lesions, good vaginal support, physiologic discharge present, normal appearing perineal body and perianal region BIMANUAL: uterus normal size, shape and consistency, no adnexal masses, and non-tender RECTOVAGINAL: deferred. NEURO: alert and oriented x3,exam grossly non-focal EXTREMITIES: normal ASSESSMENT/PLAN: 1) Health maintenance: Pap/HPV up to date. 2) Contraception: none. Contraceptive options reviewed and in (more content not included)... Normal [facility] 25(OH)D3 [facility] 2024 25-hydroxyvitamin D3 [Mass/Vol] 27.8 ng/mL Low 31.0-80.0 [facility] Comment on above: Order Comment: Speci men Type: BLOOD SPECIMENOrdering Facility: [facility] Address: [address] [place] [address] Result Comment: Clas sification of 25 OH Vitamin D status: Deficiency/Insufficiency: < or = 30 ng/ml. Sufficiency/Optimal Levels: 31-80 ng/mL Toxicity: > 100 ng/mL. Test performed by chemiluminescent immunoassay. Performed By: #### 1 989-3 ####[facility] LABIA [id number] [place] [address] [place] CBC panel Auto (Bld)on 04-03 Erythrocyte distribution width (RBC) [Ratio] 14.5 % Normal 11.5-15.0 [facility] Comment on above: Order Comment: Speci men Type: BLOOD SPECIMENOrdering Facility: [facility] Address: [address] [place] [address] Performed By: #### 5 8410-2 ####[facility] LABCLIA [id number] [address] [place] Hematocrit (Bld) [Volume fraction] 39.3 % Normal 36.0-46.0 [facility] Comment on above: Order Comment: Speci men Type: BLOOD SPECIMENOrdering Facility: [facility] Address: [address] [place] [address] Performed By: #### 5 8410-2 ####[facility] LABCLIA [id number] [place] [id number] [place] Hemoglobin (Bld) [Mass/Vol] 13.0 g/dL Normal 11.5-15.5 [facility] Comment on above: Order Comment: Speci men Type: BLOOD SPECIMENOrdering Facility: [facility] Address: [address] [place] [address] Performed By: #### 5 8410-2 ####[facility] LABCLIA [id number] [place] [address] [place] MCH (RBC) [Entitic mass] 30.4 pg Normal 26.0-34.0 [facility] Comment on above: Order Comment: Speci men Type: BLOOD SPECIMENOrdering Facility: [facility] Address: [address] [place] [address] Performed By: #### 5 8410-2 ####[facility] [id number] [place] [address] [place] MCHC (RBC) [Mass/Vol] 33.1 g/dL Normal 30.5-36.0 [facility] Comment on above: Order Comment: Speci men Type: BLOOD SPECIMENOrdering Facility: [facility] Address: [address] [place] [address] Performed By: #### 5 8410-2 ####[facility] [id number] [address] [place] MCV (RBC) [Entitic vol] 91.8 fL Normal 80.0-100.0 C [facility] Comment on above: Order Comment: Speci men Type: BLOOD SPECIMENOrdering Facility: [facility] Address: [address] [place] [address] Performed By: #### 5 8410-2 ####[facility] [id number] [place] [address] [place] Nucleated RBC (Bld) [#/Vol] 10*3/uL Normal <0.01 [facility] Comment on above: Order Comment: Speci men Type: BLOOD SPECIMENOrdering Facility: [facility] Address: [address] [place] [address] Performed By: #### 5 8410-2 ####[facility] [id number] [place] [address] [place] Platelet mean volume (Bld) [Entitic vol] 11.4 fL Normal 9.0-12.7 [facility] Comment on above: Order Comment: Speci men Type: BLOOD SPECIMENOrdering Facility: [facility] Address: [address] [place] [address] Performed By: #### 5 8410-2 ####[facility] LABCLIA [id number] [address] [address] [place] Platelets (Bld) [#/Vol] 261 10*3/uL Normal 150-400 [facility] Comment on above: Order Comment: Speci men Type: BLOOD SPECIMENOrdering Facility: [facility] Address: [address] [place] [address] Performed By: #### 5 8410-2 ####[facility] LABCLIA [id number] [place] [id number] [place] RBC (Bld) [#/Vol] 4.28 10*6/uL Normal 3.90-5.20 [facility] Comment on above: Order Comment: Speci men Type: BLOOD SPECIMENOrdering Facility: [facility] Address: [address] [place] [address] Performed By: #### 5 8410-2 ####[facility] LABCLIA [id number] [address] [address] [place] WBC (Bld) [#/Vol] 10.94 10*3/uL Normal 3.70-11.00 [facility] Comment on above: Order Comment: Speci men Type: BLOOD SPECIMENOrdering Facility: [facility] Address: [address] [place] [address] Performed By: #### 5 8410-2 ####[facility] LABCLIA [id number] [address] [address] [place] Comprehensive metabolic 2000 panelon 04-03-2024 Albumin [Mass/Vol] 4.0 g/dL Normal 3.9-4.9 [facility] Comment on above: Order Comment: Speci men Type: BLOOD SPECIMENOrdering Facility: [facility] Address: [address] [place], [place] [address] Performed By: #### 2 4323-8, 3016-3, 3051-0, 302-7 ####[facility] LABCLIA [id number] [place] [id number] [place] ALP [Catalytic activity/Vol] 69 U/L Normal 34-123 [facility] Comment on above: Order Comment: Speci men Type: BLOOD SPECIMENOrdering Facility: [facility] Address: [address] [place], [place] [address] Performed By: #### 2 4323-8, 3016-3, 3051-0, 302-7 ####[facility] LABIA [id number] [place] [address] [place] ALT [Catalytic activity/Vol] 27 U/L Normal 7-38 [facility] Comment on above: Order Comment: Speci men Type: BLOOD SPECIMENOrdering Facility: [facility] Address: [address] [place] [address] Performed By: #### 2 4323-8, 3016-3, 305-0, 3027 ####[facility] LABIA [id number] [place] [address] [place] Anion gap [Moles/Vol] 9 mmol/L Normal 8-15 [facility] Comment on above: Order Comment: Speci men Type: BLOOD SPECIMENOrdering Facility: [facility] Address: [address] [place], [place] [address] Performed By: #### 2 4323-8, 3016-3, 305-0, 3027 ####[facility] LABIA [id number] [place] [id number] [place] AST [Catalytic activity/Vol] 24 U/L Normal 13-35 [facility] Comment on above: Order Comment: Speci men Type: BLOOD SPECIMENOrdering Facility: [facility] Address: [address] [place] [address] Performed By: #### 2 4323-8, 3016-3, 305-0, 302-7 ####[facility] LABCLIA [id number] [address] [address] [place] Bilirubin [Mass/Vol] 0.2 mg/dL Normal 0.2-1.3 [facility] Comment on above: Order Comment: Speci men Type: BLOOD SPECIMENOrdering Facility: [facility] Address: [address] [place], [place] [address] Performed By: #### 2 4323-8, 3016-3, 305-0, 3027 ####[facility] LABCLIA [id number] [address] [address] [place] Calcium [Mass/Vol] 9.2 mg/dL Normal 8.5-10.2 [facility] Comment on above: Order Comment: Speci men Type: BLOOD SPECIMENOrdering Facility: [facility] Address: [address] [place], [place] [address] Performed By: #### 2 4323-8, 6-3, 305-0, 3027 ####[facility] LABCLIA [id number] [address] [address] [place] Chloride [Moles/Vol] 105 mmol/L Normal 98-107 [facility] Comment on above: Order Comment: Speci men Type: BLOOD SPECIMENOrdering Facility: [facility] Address: [address] [place] [address] Performed By: #### 2 4323-8, 3016-3, 305-0, 3027 ####[facility] LABCLIA [id number] [address] [address] [place] CO2 [Moles/Vol] 23 mmol/L Normal 22-30 [facility] Comment on above: Order Comment: Speci men Type: BLOOD SPECIMENOrdering Facility: [facility] Address: [address] [place] [id number] Performed By: #### 2 4323-8, 3016-3, 3051-0, 7 ####[facility] LABIA [id number] [address] [address] [place] Creatinine [Mass/Vol] 0.73 mg/dL Normal 0.58-0.96 [facility] Comment on above: Order Comment: Speci men Type: BLOOD SPECIMENOrdering Facility: [facility] Address: [address] [place] [address] Performed By: #### 2 4323-8, 3016-3, 305-0, 7 ####[facility] [id number] [address] [address] [place] Creatinine and Glomerular filtration rate.predicted panel (S/P/Bld) 107 mL/min/1.73m??? Normal >=60 [facility] Comment on above: Order Comment: Speci men Type: BLOOD SPECIMENOrdering Facility: [facility] Address: [address] [place] [address] Result Comment: Neda mated Glomerular Filtration Rate (eGFR) is calculated using the 2020 CKD-EPI creatinine equation. This equation utilizes serum creatinine, sex, and age as parameters. The creatinine assay has traceable calibration to isotope dilution-mass spectrometry. Refer to KDIGO guidelines for clinical interpretation. In patients with unstable renal function, e.g. those with acute kidney injury, the eGFR may not accurately reflect actual GFR. Performed By: #### 2 4323-8, 3016-3, 305-0, 7 ####[facility] LABIA [id number] [address] [address] [place] Glucose [Mass/Vol] 72 mg/dL Low 74-99 [facility] Comment on above: Order Comment: Speci men Type: BLOOD SPECIMENOrdering Facility: [facility] Address: [address] [place] [address] Result Comment: The [place] Diabetes [employer] (ADA) provides guidance for cutoff values for fasting glucose and random glucose. The ADA defines fasting as no caloric intake for at least 8 hours. Fasting plasma glucose results between 100 to 125 mg/dL indicate increased risk for diabetes (prediabetes). Fasting plasma glucose results greater than or equal to 126 mg/dL meet the criteria for diagnosis of diabetes. In the absence of unequivocal hyperglycemia, results should be confirmed by repeat testing. In a patient with classic symptoms of hyperglycemia or hyperglycemic crisis, random plasma glucose results greater than or equal to 200 mg/dL meet the criteria for diagnosis of diabetes. Reference: Standards of Medical Care in Diabetes 2016, [place] [employer]. Diabetes Care. 2016.39(Suppl 1). Performed By: #### 2 4323-8, 3016-3, 305-0, 7 ####[facility] LABCLIA [id number] [place] [address] [place] Potassium [Moles/Vol] 4.1 mmol/L Normal 3.7-5.1 [facility] Comment on above: Order Comment: Speci men Type: BLOOD SPECIMENOrdering Facility: [facility] Address: [address] [place] [address] Performed By: #### 2 4323-8, 6-3, 0, 7 ####[facility] LABCLIA [id number] [place] [address] [place] Protein [Mass/Vol] 6.8 g/dL Normal 6.3-8.0 [facility] Comment on above: Order Comment: Speci men Type: BLOOD SPECIMENOrdering Facility: [facility] Address: [address] [place] [address] Performed By: #### 2 4323-8, 6-3, 3050-0, 7 ####[facility] LABCLIA [id number] [place] [address] [place] Sodium [Moles/Vol] 137 mmol/L Normal 136-144 [facility] Comment on above: Order Comment: Speci men Type: BLOOD SPECIMENOrdering Facility: [facility] Address: [address] [place] [address] Performed By: #### 2 4323-8, 3015-3, 0, 3023-08 ####[facility] LABCLIA [id number] [place] [address] [place] Urea nitrogen [Mass/Vol] 16 mg/dL Normal 7-21 [facility] Comment on above: Order Comment: Speci men Type: BLOOD SPECIMENOrdering Facility: [facility] Address: [address] [place] [address] Performed By: #### 2 4323-8, 3, 0, 3023-08 ####[facility] LABCLIA [id number] [place] [address] [place] T3Free SerPl-mCncon 04-03-19 25 Free T3 [Mass/Vol] 2.8 pg/mL Normal 2.3-4.1 [facility] Comment on above: Order Comment: Speci men Type: BLOOD SPECIMENOrdering Facility: [facility] Address: [address] [place] [address] Performed By: #### 2 4323-8, 3, 0, 3023-08 ####[facility] LABCLIA [id number] [place] [address] [place] T4 Free SerPl-mCncon 025 Free T4 [Mass/Vol] 0.9 ng/dL Normal 0.9-1.7 [facility] Comment on above: Order Comment: Speci men Type: BLOOD SPECIMENOrdering Facility: [facility] Address: [address] [place] [address] Performed By: #### 2 4323-8, 3015-3, 0, 3023-08 ####[facility] LABCLIA [id number] [place] [id number] [place] TSH SerPl-aCncon 04-03-2024 TSH Qn 3.450 m[IU]/L Normal 0.270-4.200 [facility] Comment on above: Order Comment: Chris beckford Type: BLOOD SPECIMENOrdering Facility: [facility] [address] [place] [address] Result Comment: If t he patient is , TSH reference range varies by gestational period: First Trimester (weeks 9-12): 0.180-2.990 mIU/L Second Trimester: 0.110-3.980 mIU/L Third Trimester: 0.480-4.710 mIU/L Jurgen Mart et al. A Practical Approach for the Verifications and Determination of Site- and Trimester-Specific Reference Intervals for Thyroid Function tests in . Thyroid, 2019:29:3:412-420. Robby Fleming et al. 2017 Guidelines of the [place] Thyroid Association for the Diagnosis and Management of Thyroid Disease during and the . Thyroid, 2017:27:3:315-389. Performed By: #### 2 4323-8, 3016-3, 3051-0, 3024-7 ####[facility] LABCLIA [id number] [place] [address] [place] VITAMIN B6/PYRIDOXINon 04-03 VITAMIN B6 31.7 nmol/L Normal 20.0-125.0 [facility] Comment on above: Order Comment: Chris beckford Type: BLOOD SPECIMENOrdering Facility: [facility] Address: [address] [place], [place] [address] [address] Result Comment: INTE RPRETIVE INFORMATION: Vitamin B6 (Pyridoxal 5-Phosphate) Pyridoxal 5'-phosphate measured in a specimen collected following an 8-hour or overnight fast accurately indicates vitamin B6 nutritional status. Non-fasting specimen concentration reflects recent vitamin intake. This test was developed and its performance characteristics determined by [facility]. It has not been cleared or approved by the US Food and Drug Administration. This test was performed in a CLIA certified laboratory and is intended for clinical purposes. Performed By: [facility] [address] [place] [id number] Photo Retoucher: Satya Rojas MD, PhD CLIA Number: [id number] Performed By: #### V ITB6 ####[facility]IESCLIA [id number] [place] [address] Vit B12 [facility] Cobalamin (Vitamin B12) [Mass/Vol] 715 pg/mL Normal 232-1245 [facility] Comment on above: Order Comment: Speci men Type: BLOOD SPECIMENOrdering Facility: [facility] Address: Formerly named [facility] [place] [address] Performed By: #### 2 132-9 ####[facility] LABORATORYCLIA [id number] [place], [place] [id number] [place] [address] CNPAny 04-02-2024 CNPN Telephone (OBGYWM) SASHA RACHEL ([id number]) 1985 F Date Time Provider Department 04/02/24 HAYLIE GARZA During your visit today, we recorded the following information about you: Sujit Bass RN 04/02/2024 10:59 AM Signed LMP beginning of the year-02/07/24. Pt saw Dr. Phillips 04/01/24. B/L thigh numbness-sleeping in different positions toes and fingers go tingly/numb. Dr. Phillips advised Pt to see OBGYN as Pt had these same problems when she was and now that she is not (possibly wondering if maybe patient has something going on internally where nerves are being pressed on). Appt made for 04/07/24 with ANGEL Beltre Jennifer, MD 04/03/2024 8:52 AM Signed This sounds like a neuro or vascular issue. Even if there was something in her pelvis causing compression of her nerves it would not effect her hands Sujit Bass RN 04/03/2024 10:21 AM Signed Talked with Dr. Garza-Will discuss amenorrhea at [facility]; however, other concerns are likely unrelated to NURSING INSTRUCTOR specialty. Sujit Bass RN Allergies As of Date: 04/02/2024 Noted Allergy Reaction MOLD 09/18/2019 14 - Other: See Comments SEASONAL ALLERGIES 07/02/2020 14 - Other: See Comments Date Reviewed: 04/01/2024 Reviewed by: Kenyetta Jin LPN - Fully Assessed Reason for Visit: Appointment [186] Prescriptions as of 04/03/2024 - sertraline (ZOLOFT) 100 mg tablet Take 1 tablet by mouth once daily. Dose change, take 1 daily - fluticasone (FLONASE) 50 mcg/actuation nasal spray Use 2 Sprays in each nostril once daily. Rinse mouth after use. - benzonatate (TESSALON PERLE) 100 mg capsule Take 1-2 capsules by mouth three times a day as needed. - sod bicarb-sod chlor-neti pot (NEILMED NASAFLO) pkdv 1 Each by sinus irrigation route two times a day as needed (for sinus congestion and drainage). - hydrOXYzine HCl (ATARAX) 10 mg tablet Take 1-2 tablets by mouth three times a day as needed for anxiety. - buPROPion XL (WELLBUTRIN XL) 150 mg 24 hr tablet Take 1 tablet by mouth once daily. - norgestimate 0.25 mg-ethinyl estradiol 35 mcg (SPRINTEC) 0.25-35 mg-mcg per tablet Take 1 tablet by mouth once daily. - ondansetron orally disintegrating (ZOFRAN ODT) 4 mg disintegrating tablet Take 1 tablet by mouth every 6 hours as needed for nausea/vomiting. - cetirizine (ZYRTEC) 10 mg tablet Take 1 tablet by mouth once daily. - cholecalciferol (VITAMIN D3) 5,000 unit tab Take 1 tablet by mouth once daily. - Magnesium 250 mg tab Take 2 tablets by mouth once daily. for anxiety / depression - ibuprofen (MOTRIN) 200 mg tablet Take 4 tablets by mouth every 8 hours as needed for pain (headache). Take with food. - albuterol HFA (PROAIR HFA) 90 mcg/actuation inhaler Inhale 2 Puffs as instructed every 6 hours as needed. Problem List As Of Date 04/02/2024 Noted Resolved Fibromyalgia [FUK4921] 08/20/2007 Anxiety and depression [F41.9, F32.A] History of depression [Z86.59] 12/06/2017 08/26/2019 At risk for depression [Z91.89] 04/24/2018 08/26/2019 Anxiety [F41.9] 04/24/2018 Numbness and tingling of lower extremity [R20.0*05/28/2018 29 weeks gestation of [Z3A.29] 05/28/2018 08/26/2019 Excessive growth affecting management of *07/22/2018 08/26/2019 Polyhydramnios in third trimester [O40.3XX0] 07/22/2018 08/26/2019 Acute back pain with sciatica, left [M54.42] 01/01/2019 08/26/2019 Class 2 obesity with body mass index (BMI) of 3*09/19/2021 Encounter Status:Closed by SUJIT BASS on 04/03/24 [facility] CNOVon 04-01-2024 CNOV Office Visit (INTMWS ) SASHA RACHEL ([id number]) 1985 F Date Time Provider Department 04/01/24 5:20 PM HUNG RIVERO INTMWS During your visit today, we recorded the following information about you: Temperature Pulse Respiration Blood pressure 96.3 degrees 75/minute 16/minute 124/62 Weight Height 115.3 kg 1.74 m Hung Rivero MD 04/01/2024 6:25 PM Signed This note was created using NoteWriter. Subjective Sasha Rachel is a 39 year old female. Patient presents with: Same Day Appointment: tail bone issues and hand and feet numbness SUBJECTIVE: Sasha Rachel is a 39 year old year old lady here today for Same Day appointment for review of medical conditions. Sasha Rachel is a 39-year-old female, with a history of recurrent depression and anxiety, presenting for evaluation of chronic tailbone pain and recent onset of hand and foot numbness. Sasha reports chronic tailbone pain persisting for 5 years, which began after the of her son. She suspects a coccygeal fracture occurred during delivery, as her son was delivered via vacuum extraction. She notes that her coccyx cracks back and forth when not seated in a specific position. She also endorses numbness in her feet when seated in certain positions, and recent onset of hand numbness over the past month. Additionally, she experiences numbness in the area above her knees, primarily on the left side, when standing for extended periods. This numbness is sometimes followed by pain when she sits back down and sensation returns. She reports that these symptoms can also occur at night if she is in a weird position, such as lying on her side with her arm under her body. She denies any issues with dropping objects or weakness in her hands. Sasha works from home and uses a computer and mouse regularly. She has implemented ergonomic measures, including using an ergonomic mouse and standing up periodically. She has also been trying to increase her physical activity by biking, but reports that walking for extended periods is painful. She denies any recent changes in activity level or repetitive motions that could explain her symptoms. Sasha also reports amenorrhea for the past 45 days, with her last menstrual period in February. She denies the possibility of and has not had any significant changes in her diet or exercise routine that could explain the missed period. She notes a history of irregular periods, but this is the longest she has gone without menstruating. She denies any pelvic pain, but reports slight cramping. Sasha has a history of recurrent depression and anxiety, which she describes as two fighting children. She reports that her mood has been stable, but she experiences episodes of depression every couple of months. She notes that work is a constant stressor and she feels more sensitive to stress than others. She also reports a family history of anxiety and depression. Sasha has been working on weight management, but reports that she has given up on it for now due to the challenges of managing her autistic son and her own health issues. She reports that her diet is under control, but she is struggling to maintain a regular exercise routine due to her symptoms. She also reports difficulty with executive functioning, which makes it challenging to stick to a weight management plan. She has been taking vitamin D supplements inconsistently. PAST MEDICAL HISTORY Diagnosis Date Abnormal Pap smear of cervix 2004 Allergic rhinitis due to other allergen Depressive disorder, not elsewhere classified Fibromyalgia Food poisoning 2014 Irritable bowel syndrome Myalgia and myositis, unspecified Other chronic sinusitis Current Outpatient Medications Medication Sig sertraline (ZOLOFT) 100 mg tablet Take 1 tablet by mouth once daily. Dose change, take 1 daily fluticasone (FLONASE) 50 mcg/actuation nasal spray Use 2 Sprays in each nostril once daily. Rinse mouth after use. benzonatate (TESSALON PERLE) 100 mg capsule Take 1-2 capsules by mouth three times a day as needed. sod bicarb-sod chlor-neti pot (NEILMED NASAFLO) pkdv 1 Each by sinus irrigation route two times a day as needed (for sinus congestion and drainage). hydrOXYzine HCl (ATARAX) 10 mg tablet Take 1-2 tablets by mouth three times a day as needed for anxiety. buPROPion XL (WELLBUTRIN XL) 150 mg 24 hr tablet Take 1 tablet by mouth once daily. norgestimate 0.25 mg-ethinyl estradiol 35 mcg (SPRINTEC) 0.25-35 mg-mcg per tablet Take 1 tablet by mouth once daily. ondansetron orally disintegrating (ZOFRAN ODT) 4 mg disintegrating tablet Take 1 tablet by mouth every 6 hours as needed for nausea/vomiting. cetirizine (ZYRTEC) 10 mg tablet Take 1 tablet by mouth once daily. cholecalciferol (VITAMIN D3) 5,000 unit tab Take 1 tablet by mouth onc (more content not included)... Normal [facility] CNOVon 02-19-2024 CNOV Office Visit (INTMWS ) SASHA RACHEL ([id number]) 1985 F Date Time Provider Department 02/19/24 12:00 PM SHEFALI CARVAJAL INTMWS During your visit today, we recorded the following information about you: Temperature Pulse Respiration Blood pressure 97.1 degrees 72/minute 16/minute 102/80 Weight 115 kg Shefali Carvajal APRN.DATABASE TECHNICIAN 02/19/2024 12:36 PM Signed SUBJECTIVE Sasha Rachel is a 39 year old female who presents with 7 days of symptoms that are stable. Symptoms include: Fever (>=100.4F): Yes 99.7F or Chills: Yes Cough: Yes productive, purulent Shortness of breath: No current, was 2 days ago or Difficulty breathing: No Fatigue: Yes Muscle aches: Yes Headache: No New loss of smell or taste: No Sore throat: Yes Nasal congestion: Yes or Rhinorrhea: Yes Nausea: No or Vomiting: No Diarrhea: No OTC meds/remedies that patient has tried: NSAIDs and OTC cold medicine. Reports separately that she would like to increase zoloft to 100 mg daily for anxiety and depression not controlled on current dose. She reports that she has never smoked. She has never used smokeless tobacco. OBJECTIVE PHYSICAL EXAM: BP 102/80 Pulse 72 Temp 36.2 ?C (97.1 ?F) Resp 16 Wt 115 kg (253 lb 8.5 oz) LMP 03/12/2023 (Within Days) SpO2 98% BMI 37.99 kg/m? General appearance: tired/ill appearing, alert, cooperative, pleasant, in no acute distress Head: Normocephalic Eyes: conjunctiva/corneas normal Ears: R TM - clear with good landmarks, nl light reflex, L TM - clear with good landmarks, nl light reflex Nose: purulent rhinorrhea, mucosa erythematous and swollen Oropharynx: moist without lesions, mild erythema to GPA Neck: supple and small, benign anterior cervical nodes bilaterally Heart: regular rate and rhythm, without murmur Lungs: clear to auscultation, without rales or wheeze, good air exchange ASSESSMENT/PLAN (J32.9, J40) Sinobronchitis (primary encounter diagnosis) (F41.9, F32.A) Anxiety and depression ASSESSMENT/PLAN: 1. Sinobronchitis - ICD9: 473.9, 490, ICD10: J32.9, J40 (primary diagnosis) - Will begin treatment with as per antibiotic as written, see orders - Supportive care with plenty of fluids, rest, and analgesia prn. - Follow up in 3-5 days if symptoms persist or worsen. - AMOXICILLIN 875 MG-POTASSIUM CLAVULANATE 125 MG TABLET - FLUTICASONE PROPIONATE 50 MCG/ACTUATION NASAL SPRAY,SUSPENSION - BENZONATATE 100 MG CAPSULE - NEILMED NASAFLO PACKET WITH SINUS RINSE DEVICE 2. Anxiety and depression - ICD9: 300.00, 311, ICD10: F41.9, F32.A She notes decreased control of anxiety and depression and would like to increase her dose of sertraline from 50 mg daily to 100 mg. Refer to counseling if so desires. - SERTRALINE 100 MG TABLET Shefali Carvajal APRN.DATABASE TECHNICIAN Medical Decision Making: Problems: Low: Acute, uncomplicated illness or injury Moderate: 1+ chronic illnesses with change Risk: Moderate: Drug management Medical Decision Making Level: 4 - Moderate Allergies As of Date: 02/19/2024 Noted Allergy Reaction MOLD 09/18/2019 14 - Other: See Comments SEASONAL ALLERGIES 07/02/2020 14 - Other: See Comments Date Reviewed: 02/19/2024 Reviewed by: Sasha Boucher LPN - Fully Assessed Reason for Visit: Cough [28] Primary Visit Diagnosis:Sinobronchi tis [J32.9, J40] Other Visit Diagnosis:Anxiety and depression [F41.9, F32.A] Order(s):sertraline (ZOLOFT) 100 mg tabletTake 1 tablet by mouth once daily. Dose change, take 1 dailyDisp: 90 tabletRfl: 3 amoxicillin-clavulana te potassium (AUGMENTIN) 875-125 mg per tabletTake 1 tablet by mouth every 12 hours for 7 days. Take with foodDisp: 14 tabletRfl: 0 fluticasone (FLONASE) 50 mcg/actuation nasal sprayUse 2 Sprays in each nostril once daily. Rinse mouth after use.Disp: 1 EachRfl: 0 benzonatate (TESSALON PERLE) 100 mg capsuleTake 1-2 capsules by mouth three times a day as needed.Disp: 60 capsuleRfl: 1 sod bicarb-sod chlor-neti pot (NEILMED NASAFLO) pkdv1 Each by sinus irrigation route two times a day as needed (for sinus congestion and drainage).Disp: 30 EachRfl: 0 Prescriptions as of 02/19/2024 - sertraline (ZOLOFT) 100 mg tablet Take 1 tablet by mouth once daily. Dose change, take 1 daily - amoxicillin-clavulana te potassium (AUGMENTIN) 875-125 mg per tablet Take 1 tablet by mouth every 12 hours for 7 days. Take with food - fluticasone (FLONASE) 50 mcg/actuation nasal spray Use 2 Sprays in each nostril once daily. Rinse mouth after use. - benzonatate (TESSALON PERLE) 100 mg capsule Take 1-2 capsules by mouth three times a day as needed. - sod bicarb-sod chlor-neti pot (NEILMED NASAFLO) pkdv 1 Each by sinus irrigation route two times a day as needed (for sinus congestion and drainage). - hydrOXYzine HCl (ATARAX) 10 mg tablet Take 1-2 tablets by mouth three times a day as needed for anxiety. - buPROPion XL (WELL (more content not included)... Normal [facility] Influenza virus A and B and SARS-CoV-2 (COVID-19) Ag panel - Upper respiratory specimOrdered By: Elliott Hebert on 01-21-2023 SARS-CoV-2 (COVID-19) RNA LYNNE+probe Ql (Resp) [facility] Upper respiratory specimen i nfluenza A virus, influenza B virus, and severe acute resOrdered By: Elliott Hebert on 01-21-2023 Upper respiratory specimen influenza A virus, influenza B virus, and severe acute res [facility] Upper respiratory specimen influenza A virus, influenza B virus, and severe acute res [facility] UA DIP, URINE (POC)on 2022 BILIRUBIN UA (POCT) Negative Negative [facility] CLARITY UA (POCT) Clear [facility] COLOR UA (POCT) Yellow [place] GLUCOSE UA (POCT) Negative Negative mg/dL [place] Hemoglobin Ql (U) Small Abnormal Negative [facility] KETONE UA (POCT) 15 mg/dL Abnormal Negative mg/dL [place] LEUKOCYTES UA (POCT) Negative Negative [facility] NITRITE UA (POCT) Negative Negative [facility] PH UA (POCT) 5.5 4.5 - 8.0 [place] Protein Ql (U) 30 mg/dL Abnormal Negative mg/dL [place] SPECIFIC GRAVITY UA (POCT) >=1.030 1.005 - 1.030 [place] UROBILINOGEN UA (POCT) 0.2 E.U./dL Britany l E.U./dL [place] STREP A MOLECULAR (POC)on Procedural Control Valid [facility] Strep A (POCT) Negative Negative [place] CBC W Auto Differential pane l (Bld)on 07-12-2022 Basophils (Bld) [#/Vol] <0.11 k/uL [facility] Basophils/100 WBC (Bld) 0.3 % [facility] Differential cell count method Nom (Bld) Auto [place] Eosinophils (Bld) [#/Vol] 0.18 10*3/uL <0.46 k/uL [place] Eosinophils/100 WBC (Bld) 2.5 % [place] Erythrocyte distribution width (RBC) [Ratio] 13.6 % 11.5 - 15.0 % [place] Hematocrit (Bld) [Volume fraction] 46.1 % High 36.0 - 46.0 % [place] Hemoglobin (Bld) [Mass/Vol] 14.2 g/dL 11.5 - 15.5 g/dL [place] Immature granulocytes (Bld) [#/Vol] <0.10 k/uL [place] Immature granulocytes/100 WBC (Bld) 0.3 % [place] Lymphocytes (Bld) [#/Vol] 1.84 10*3/uL 1.00 - 4.00 k/uL [place] Lymphocytes/100 WBC (Bld) 25.8 % [place] MCH (RBC) [Entitic mass] 30.0 pg 26. 0 - 34.0 pg [place] MCHC (RBC) [Mass/Vol] 30.8 g/dL 30.5 - 36.0 g/dL [place] MCV (RBC) [Entitic vol] 97.5 fL 80.0 - 100.0 fL [place] Monocytes (Bld) [#/Vol] 0.58 10*3/uL <0.87 k/uL [place] Monocytes/100 WBC (Bld) 8.1 % [facility] Neutrophils (Bld) [#/Vol] 4.48 10*3/uL 1.45 - 7.50 k/uL [place] Neutrophils/100 WBC (Bld) 63.0 % [place] Nucleated RBC (Bld) [#/Vol] <0.01 k/uL [place] Nucleated RBC/100 WBC (Bld) [Ratio] 0.0 /100 WBC [place] Platelet mean volume (Bld) [Entitic vol] 11.0 fL 9.0 - 12.7 fL [place] Platelets (Bld) [#/Vol] 236 10*3/uL 150 - 400 k/uL [place] RBC (Bld) [#/Vol] 4.73 10*6/uL 3.90 - 5.2 0 m/uL [place] WBC (Bld) [#/Vol] 7.12 10*3/uL 3.70 - 11. 00 k/uL [place] HbA1c (Bld)on 07-12-2022 Average glucose Estimated from glycated hemoglobin (Bld) [Mass/Vol] 91 mg/dL [place] HbA1c (Bld) [Mass fraction] 4.8 % 4.3 - 5.6 % [place] VITAMIN D 25 HYDROXYon 07-12 25-hydroxyvitamin D3 [Mass/Vol] 22.2 ng/mL Low 31.0 - 80.0 ng/mL [place] STREP A MOLECULAR (POC)on Procedural Control Valid [facility] Strep A (POCT) Negative Negative [place] XR CHEST 2V FRONTAL/LATon [place] XR Chest PA and Lateralon IMPRESSION: No acute radiographic abnormality. Factory Engineer: PSCB Transcribe Date/Time: Jul 27 2021 3:58P Dictated by : DANDRE CERNA MD This examination was interpreted and the report reviewed and electronically signed by: DANDRE CERNA MD on Jul 27 2021 3:58PM EST ZZZ_DO_NOT_U SE_DIVISION OF RADIOLOGY * * *Final Report* * * DATE OF EXAM: Jul 27 2021 3:50PM WOX [id number] - XR CHEST 2V FRONTAL/LAT / PROCEDURE REASON: Cough * * * * Physician Interpretation * * * * EXAMINATION: CHEST RADIOGRAPH (2 VIEW FRONTAL & LATERAL) CLINICAL HISTORY: Cough MQ: XC2_6 EXAM DATE/TIME: 07/27/2021 3:50 PM COMPARISON: Chest x-ray dated January 31, 2010 RESULT: Lines, tubes, and devices: None. Lungs and pleura: No consolidation. No lung mass. No pleural effusion. No pneumothorax. Cardiomediastinal silhouette: Normal cardiomediastinal silhouette. Bones and soft tissues: Unremarkable. ZZZ_DO_NOT_U SE_DIVISION OF RADIOLOGY Provider, [facility] - 07/27/2021 * * *Final Report* * * DATE OF EXAM: Jul 27 2021 3:50PM WOX [id number] - XR CHEST 2V FRONTAL/LAT / PROCEDURE REASON: Cough * * * * Physician Interpretation * * * * EXAMINATION: CHEST RADIOGRAPH (2 VIEW FRONTAL & LATERAL) CLINICAL HISTORY: Cough MQ: XC2_6 EXAM DATE/TIME: 07/27/2021 3:50 PM COMPARISON: Chest x-ray dated January 31, 2010 RESULT: Lines, tubes, and devices: None. Lungs and pleura: No consolidation. No lung mass. No pleural effusion. No pneumothorax. Cardiomediastinal silhouette: Normal cardiomediastinal silhouette. Bones and soft tissues: Unremarkable. IMPRESSION IMPRESSION: No acute radiographic abnormality. Factory Engineer: PSCB Transcribe Date/Time: Jul 27 2021 3:58P Dictated by : DANDRE CERNA MD This examination was interpreted and the report reviewed and electronically signed by: DANDRE CERNA MD on Jul 27 2021 3:58PM EST [place] Radiology Study observation (narrative) Katharina baron [facility] XR Chest PA and LateralOrder ed By: [facility] Provider on 07-27-2021 [place] Vital Signs Date Time Vital Sign Value Performing Clinician Facility 09-29-2024 07:52-0400 Body height 172.7 cm Hung Rivero MD Work Phone: [facility] 09-29-2024 07:52-0400 Body mass index (BMI) [Ratio] 37.34 kg/m2 Hung Rivero MD Work Phone: [place] 09-29-2024 07:52-0400 Body temperature 97.39 [degF] Hung Rivero MD Work Phone: [place] 09-29-2024 07:52-0400 Body weight 111.4 kg Hung Rivero MD Work Phone: [place] 09-29-2024 07:52-0400 Diastolic blood pressure 64 mm[Hg] Hung Rivero MD Work Phone: [place] 09-29-2024 07:52-0400 Heart rate 78 /min Hung Rivero MD Work Phone: [place] 09-29-2024 07:52-0400 Respiratory rate 12 /min Hung Rivero MD Work Phone: [place] 09-29-2024 07:52-0400 SaO2% (BldA) [Mass fraction] 98 % Hung Rivero MD Work Phone: [place] 09-29-2024 07:52-0400 Systolic blood pressure 130 mm[Hg] Hung Rivero MD Work Phone: [place] 06-14-2024 12:28-0400 Body mass index (BMI) [Ratio] 38.62 kg/m2 Bridget Reyes APRN.AIR DEFENCE OFFICER Work Phone: [place] 06-14-2024 12:28-0400 Body temperature 98.2 [degF] Bridget Reyes APRN.AIR DEFENCE OFFICER Work Phone: [place] 06-14-2024 12:28-0400 Body weight 115.2 kg Bridget Reyes APRN.AIR DEFENCE OFFICER Work Phone: [place] 06-14-2024 12:28-0400 Diastolic blood pressure 76 mm[Hg] Bridget Reyes APRN.AIR DEFENCE OFFICER Work Phone: [place] 06-14-2024 12:28-0400 Heart rate 82 /min Bridget Reyes APRN.AIR DEFENCE OFFICER Work Phone: [place] 06-14-2024 12:28-0400 Respiratory rate 18 /min Bridget Reyes APRN.AIR DEFENCE OFFICER Work Phone: [place] 06-14-2024 12:28-0400 SaO2% (BldA) [Mass fraction] 98 % Bridget Reyes APRN.AIR DEFENCE OFFICER Work Phone: [place] 06-14-2024 12:28-0400 Systolic blood pressure 112 mm[Hg] Bridget Reyes APRN.AIR DEFENCE OFFICER Work Phone: [place] 05-27-2024 10:54-0400 Body mass index (BMI) [Ratio] 37.88 kg/m2 Hung Rivero MD Work Phone: [place] 05-27-2024 10:54-0400 Body weight 113 kg Hung Rivero MD Work Phone: [place] 05-27-2024 10:54-0400 Diastolic blood pressure 78 mm[Hg] Hung Rivero MD Work Phone: [place] 05-27-2024 10:54-0400 Heart rate 83 /min Hung Rivero MD Work Phone: [place] 05-27-2024 10:54-0400 Respiratory rate 16 /min Hung Rivero MD Work Phone: [place] 05-27-2024 10:54-0400 SaO2% (BldA) [Mass fraction] 98 % Hung Rivero MD Work Phone: [place] 05-27-2024 10:54-0400 Systolic blood pressure 122 mm[Hg] Hung Rivero MD Work Phone: [place] 05-23-2024 08:00-0400 Body temperature 96.9 [degF] Dr. Hung Rivero MD Work Phone: [facility] 05-23-2024 08:00-0400 Diastolic blood pressure 79 mm[Hg] Dr. Hung Rivero MD Work Phone: 2(112)416-803475 [place] [address] 05-23-2024 08:00-0400 Heart rate 70 /min Dr. Hung Rivero MD Work Phone: 1(431)517-481475 [place] [address] 05-23-2024 08:00-0400 Respiratory rate 16 /min Dr. Hung Rivero MD Work Phone: 3(104)045-536875 [place] [address] 05-23-2024 08:00-0400 SaO2% (BldA) [Mass fraction] 99 % Dr. Hung Rivero MD Work Phone: 1(572)248-103875 [place] [address] 05-23-2024 08:00-0400 Systolic blood pressure 118 mm[Hg] Dr. Hung Rivero MD Work Phone: 1(909)703-422875 [place] [address] 05-23-2024 06:07-0400 Body height 172.[address] Hung Rivero MD Work Phone: 8(224)500-590275 [place] [address] 05-23-2024 06:07-0400 Body mass index (BMI) [Ratio] 38.9 kg/m2 Dr. Hung Rivero MD Work Phone: 9(777)398-026175 [place] [address] 05-23-2024 06:07-0400 Body weight [address] Hung Rivero MD Work Phone: 3(786)741-864375 [place] [address] 05-21-2024 09:22-0400 Body height 172.7 cm Marisabel Zavaleta MD Work Phone: 3(992)764-967065 [place] [address] 05-21-2024 09:22-0400 Body mass index (BMI) [Ratio] 38.47 kg/m2 Marisabel Zavaleta MD Work Phone: 9(130)678-964465 [place] [address] 05-21-2024 09:22-0400 Body weight 114.76 kg Marisabel Zavaleta MD Work Phone: 4(245)293-126765 [place] [address] 05-21-2024 09:22-0400 Diastolic blood pressure 70 mm[Hg] Marisabel Zavaleta MD Work Phone: 4(438)222-554665 [place] [address] 05-21-2024 09:22-0400 Systolic blood pressure 124 mm[Hg] Marisabel Zavaleta MD Work Phone: [place] 05-16-2024 13:00-0400 Body mass index (BMI) [Ratio] 38.92 kg/m2 Adriana Clrak APRN.AIR DEFENCE OFFICER Work Phone: [place] 05-16-2024 13:00-0400 Body weight 116.12 kg Adriana Clark APRN.AIR DEFENCE OFFICER Work Phone: [place] 05-16-2024 13:00-0400 Diastolic blood pressure 68 mm[Hg] Adriana Clark APRN.AIR DEFENCE OFFICER Work Phone: [place] 05-16-2024 13:00-0400 Systolic blood pressure 113 mm[Hg] Adriana Clark APRN.AIR DEFENCE OFFICER Work Phone: 4(457)034-474265 [place] [address] 05-16-2024 03:20-0400 Body temperature 98.3 [degF] Dr. Hung Rivero MD Work Phone: 0(904)809-318369 [place] [address] 05-16-2024 03:20-0400 Diastolic blood pressure 80 mm[Hg] Dr. Hung Rivero MD Work Phone: 9(706)136-061869 [place] [address] 05-16-2024 03:20-0400 Heart rate 55 /min Dr. Hung Rivero MD Work Phone: 3(408)540-386269 [place] [address] 05-16-2024 03:20-0400 Respiratory rate 18 /min Dr. Hung Rivero MD Work Phone: 1(114)401-580969 [place] [address] 05-16-2024 03:20-0400 SaO2% (BldA) [Mass fraction] 98 % Dr. Hung Rivero MD Work Phone: 0(946)381-775869 [place] [address] 05-16-2024 03:20-0400 Systolic blood pressure 130 mm[Hg] Dr. Hung Rivero MD Work Phone: 3(325)588-378475 [place] [address] 05-16-2024 01:21-0400 Body height 172.[address] Hung Rivero MD Work Phone: 5(504)716-103069 [place] [address] 05-16-2024 01:21-0400 Body mass index (BMI) [Ratio] 39.9 kg/m2 Dr. Hung Rivero MD Work Phone: [facility] 05-16-2024 01:21-0400 Body weight [address] Hung Rivero MD Work Phone: [facility] 04-24-2024 10:23-0400 Body mass index (BMI) [Ratio] 38.88 kg/m2 Bridget Reyes APRN.AIR DEFENCE OFFICER Work Phone: [place] 04-24-2024 10:23-0400 Body temperature 98.1 [degF] Bridget Reyes APRN.AIR DEFENCE OFFICER Work Phone: [place] 04-24-2024 10:23-0400 Body weight 116 kg Bridget Reyes APRN.AIR DEFENCE OFFICER Work Phone: [place] 04-24-2024 10:23-0400 Diastolic blood pressure 72 mm[Hg] Bridget Reyes APRN.AIR DEFENCE OFFICER Work Phone: [place] 04-24-2024 10:23-0400 Heart rate 93 /min Bridget Reyes APRN.AIR DEFENCE OFFICER Work Phone: [place] 04-24-2024 10:23-0400 Respiratory rate 16 /min Bridget Reyes APRN.AIR DEFENCE OFFICER Work Phone: [place] 04-24-2024 10:23-0400 SaO2% (BldA) [Mass fraction] 97 % Bridget Reyes APRN.AIR DEFENCE OFFICER Work Phone: [place] 04-24-2024 10:23-0400 Systolic blood pressure 140 mm[Hg] Bridget Reyes APRN.AIR DEFENCE OFFICER Work Phone: [place] 04-24-2024 09:27-0400 Body mass index (BMI) [Ratio] 38.62 kg/m2 Adriana Clark APRN.AIR DEFENCE OFFICER Work Phone: [place] 04-24-2024 09:27-0400 Body weight 115.21 kg Adriana Clark APRN.AIR DEFENCE OFFICER Work Phone: [place] 04-24-2024 09:27-0400 Diastolic blood pressure 82 mm[Hg] Adriana Clark APRN.AIR DEFENCE OFFICER Work Phone: [place] 04-24-2024 09:27-0400 Systolic blood pressure 132 mm[Hg] Adriana Clark APRN.AIR DEFENCE OFFICER Work Phone: [place] 04-19-2024 10:46-0400 Body height 172.7 cm Hung Rivero MD Work Phone: [place] 04-19-2024 10:46-0400 Body mass index (BMI) [Ratio] 38.65 kg/m2 Hung Rivero MD Work Phone: [place] 04-19-2024 10:46-0400 Body temperature 97.3 [degF] Hung Rivero MD Work Phone: [place] 04-19-2024 10:46-0400 Body weight 115.3 kg Hung Rivero MD Work Phone: [place] 04-19-2024 10:46-0400 Diastolic blood pressure 72 mm[Hg] Hung Rivero MD Work Phone: [place] 04-19-2024 10:46-0400 Heart rate 76 /min Hung Rivero MD Work Phone: [place] 04-19-2024 10:46-0400 Respiratory rate 14 /min Hung Rivero MD Work Phone: [place] 04-19-2024 10:46-0400 SaO2% (BldA) [Mass fraction] 98 % Hung Rivero MD Work Phone: [place] 04-19-2024 10:46-0400 Systolic blood pressure 122 mm[Hg] Hung Rivero MD Work Phone: [place] 04-07-2024 13:29-0500 Body height 172.7 cm Haylie Garza MD Work Phone: [place] 04-07-2024 13:29-0500 Body mass index (BMI) [Ratio] 39.38 kg/m2 Haylie Garza MD Work Phone: [place] 04-07-2024 13:29-0500 Body weight 117.48 kg Haylie Garza MD Work Phone: [place] 04-07-2024 13:29-0500 Diastolic blood pressure 80 mm[Hg] Haylie Garza MD Work Phone: [place] 04-07-2024 13:29-0500 Systolic blood pressure 120 mm[Hg] Haylie Garza MD Work Phone: [place] 04-01-2024 17:05-0500 Body height 174 cm Hung Rivero MD Work Phone: [place] 04-01-2024 17:05-0500 Body mass index (BMI) [Ratio] 38.09 kg/m2 Hung Rivero MD Work Phone: [place] 04-01-2024 17:05-0500 Body temperature 96.3 [degF] Hung Rivero MD Work Phone: [place] 04-01-2024 17:05-0500 Body weight 115.3 kg Hung Rivero MD Work Phone: [place] 04-01-2024 17:05-0500 Diastolic blood pressure 62 mm[Hg] Hung Rivero MD Work Phone: [place] 04-01-2024 17:05-0500 Heart rate 75 /min Hung Rivero MD Work Phone: [place] 04-01-2024 17:05-0500 Respiratory rate 16 /min Hung Rivero MD Work Phone: [place] 04-01-2024 17:05-0500 SaO2% (BldA) [Mass fraction] 99 % Hung Rivero MD Work Phone: [place] 04-01-2024 17:05-0500 Systolic blood pressure 124 mm[Hg] Hung Rivero MD Work Phone: [place] 02-19-2024 12:11-0500 Body mass index (BMI) [Ratio] 37.99 kg/m2 Shefali Carvajal DEPARTMENT HEAD.DATABASE TECHNICIAN Work Phone: [place] 02-19-2024 12:11-0500 Body temperature 97.11 [degF] Shefali Carvajal DEPARTMENT HEAD.DATABASE TECHNICIAN Work Phone: [place] 02-19-2024 12:11-0500 Body weight 115 kg Shefali Carvajal DEPARTMENT HEAD.DATABASE TECHNICIAN Work Phone: [place] 02-19-2024 12:11-0500 Diastolic blood pressure 80 mm[Hg] Shefali Carvajal DEPARTMENT HEAD.DATABASE TECHNICIAN Work Phone: [place] 02-19-2024 12:11-0500 Heart rate 72 /min Shefali Carvajal DEPARTMENT HEAD.DATABASE TECHNICIAN Work Phone: [place] 02-19-2024 12:11-0500 Respiratory rate 16 /min Shefali Carvajal DEPARTMENT HEAD.DATABASE TECHNICIAN Work Phone: [place] 02-19-2024 12:11-0500 SaO2% (BldA) [Mass fraction] 98 % Shefali Carvajal DEPARTMENT HEAD.DATABASE TECHNICIAN Work Phone: [place] 02-19-2024 12:11-0500 Systolic blood pressure 102 mm[Hg] Shefali Carvajal DEPARTMENT HEAD.DATABASE TECHNICIAN Work Phone: [place] 09-10-2023 09:58-0400 Body height 174 cm Shefali Carvajal DEPARTMENT HEAD.DATABASE TECHNICIAN Work Phone: [place] 09-10-2023 09:58-0400 Body mass index (BMI) [Ratio] 37.76 kg/m2 Shefali Carvajal DEPARTMENT HEAD.DATABASE TECHNICIAN Work Phone: [place] 09-10-2023 09:58-0400 Body weight 114.3 kg Shefali Carvajal DEPARTMENT HEAD.DATABASE TECHNICIAN Work Phone: [place] 09-10-2023 09:58-0400 Diastolic blood pressure 79 mm[Hg] Shefali Carvajal DEPARTMENT HEAD.DATABASE TECHNICIAN Work Phone: [place] 09-10-2023 09:58-0400 Heart rate 69 /min Shefali Carvajal DEPARTMENT HEAD.DATABASE TECHNICIAN Work Phone: [place] 09-10-2023 09:58-0400 Respiratory rate 16 /min Shefali Carvajal DEPARTMENT HEAD.DATABASE TECHNICIAN Work Phone: [place] 09-10-2023 09:58-0400 Systolic blood pressure 120 mm[Hg] Shefali Carvajal DEPARTMENT HEAD.DATABASE TECHNICIAN Work Phone: [place] 06-22-2023 12:52-0400 Body mass index (BMI) [Ratio] 37.95 kg/m2 Sophie Arora MD Work Phone: [place] 06-22-2023 12:52-0400 Body weight 113.22 kg Sophie Arora MD Work Phone: [place] 06-22-2023 12:52-0400 Diastolic blood pressure 78 mm[Hg] Sophie Arora MD Work Phone: [place] 06-22-2023 12:52-0400 Systolic blood pressure 110 mm[Hg] Sophie Arora MD Work Phone: [place] 05-28-2023 16:09-0400 Body height 172.72 cm [facility] 05-07-2023 00:42-0400 Body weight 111.94 kg [facility] 04-06-2023 00:23-0500 Body weight 111.94 kg [facility] 03-26-2023 16:00-0500 Body height 172.72 cm [facility] 03-26-2023 16:00-0500 Body weight 113.67 kg [facility] 03-13-2023 09:06-0500 Body height 172.7 cm Adriana Clark APRN.AIR DEFENCE OFFICER Work Phone: [place] 03-13-2023 09:06-0500 Body weight 112.95 kg Adriana Clark APRN.AIR DEFENCE OFFICER Work Phone: [place] 03-13-2023 09:06-0500 Diastolic blood pressure 86 mm[Hg] Adriana Clark APRN.AIR DEFENCE OFFICER Work Phone: [place] 03-13-2023 09:06-0500 Systolic blood pressure 114 mm[Hg] Adriana Clark APRN.AIR DEFENCE OFFICER Work Phone: [place] 03-08-2023 00:07-0500 Body weight 111.94 kg [facility] 02-08-2023 08:18-0500 Body height 172.72 cm [facility] 02-08-2023 08:18-0500 Body weight 111.94 kg [facility] 01-21-2023 21:45-0500 Diastolic blood pressure 43 mm[Hg] [facility] 01-21-2023 21:45-0500 Heart rate 100 /min [facility] 01-21-2023 21:45-0500 Respiratory rate 14 /min [facility] 01-21-2023 21:45-0500 SaO2% (BldA) [Mass fraction] 100 % [facility] 01-21-2023 21:45-0500 Systolic blood pressure 111 mm[Hg] [facility] 01-21-2023 19:14-0500 Body temperature 97.9 [degF] [facility] 01-21-2023 16:26-0500 Body height 172.72 cm [facility] 01-21-2023 16:26-0500 Body mass index (BMI) [Ratio] 37.8 kg/m2 [facility] 01-21-2023 16:26-0500 Body weight 112.85 kg [facility] 12-26-2022 13:33-0500 Body weight 113.58 kg Adriana Clark APRN.AIR DEFENCE OFFICER Work Phone: [place] 12-26-2022 13:33-0500 Diastolic blood pressure 80 mm[Hg] Adriana Clark APRN.AIR DEFENCE OFFICER Work Phone: [place] 12-26-2022 13:33-0500 Heart rate 70 /min Adriana Clark DEPARTMENT HEAD.AIR DEFENCE OFFICER Work Phone: [place] 12-26-2022 13:33-0500 SaO2% (BldA) [Mass fraction] 97 % Adriana Clark DEPARTMENT HEAD.AIR DEFENCE OFFICER Work Phone: [place] 12-26-2022 13:33-0500 Systolic blood pressure 120 mm[Hg] Adriana Agostohrie DEPARTMENT HEAD.AIR DEFENCE OFFICER Work Phone: [place] 12-20-2022 12:39-0500 Body weight 113.13 kg Quita Leana DEPARTMENT HEAD.AIR DEFENCE OFFICER Work Phone: [place] 12-20-2022 12:39-0500 Diastolic blood pressure 80 mm[Hg] Quita Laena DEPARTMENT HEAD.AIR DEFENCE OFFICER Work Phone: [place] 12-20-2022 12:39-0500 Heart rate 84 /min Quita Leana DEPARTMENT HEAD.AIR DEFENCE OFFICER Work Phone: [place] 12-20-2022 12:39-0500 Respiratory rate 16 /min Qiuta Leana DEPARTMENT HEAD.AIR DEFENCE OFFICER Work Phone: [place] 12-20-2022 12:39-0500 SaO2% (BldA) [Mass fraction] 97 % Quita Leana DEPARTMENT HEAD.AIR DEFENCE OFFICER Work Phone: [place] 12-20-2022 12:39-0500 Systolic blood pressure 132 mm[Hg] Quita Leana DEPARTMENT HEAD.AIR DEFENCE OFFICER Work Phone: [place] 12-19-2022 18:27-0500 Body temperature 97.81 [degF] Satya Catalan DEPARTMENT HEAD.AIR DEFENCE OFFICER Work Phone: [place] 12-19-2022 18:27-0500 Body weight 112.95 kg Satya Catalan DEPARTMENT HEAD.AIR DEFENCE OFFICER Work Phone: [place] 12-19-2022 18:27-0500 Diastolic blood pressure 87 mm[Hg] Satya Catalan DEPARTMENT HEAD.AIR DEFENCE OFFICER Work Phone: [place] 12-19-2022 18:27-0500 Heart rate 92 /min Satya Catalan APRN.AIR DEFENCE OFFICER Work Phone: [place] 12-19-2022 18:27-0500 Respiratory rate 18 /min Satya Catalan APRN.AIR DEFENCE OFFICER Work Phone: [place] 12-19-2022 18:27-0500 SaO2% (BldA) [Mass fraction] 100 % Satya Catalan APRN.AIR DEFENCE OFFICER Work Phone: [place] 12-19-2022 18:27-0500 Systolic blood pressure 118 mm[Hg] Satya Catalan APRN.AIR DEFENCE OFFICER Work Phone: [place] 11-16-2022 13:08-0400 Body height 172.7 cm Adriana Clark APRN.AIR DEFENCE OFFICER Work Phone: [place] 11-16-2022 13:08-0400 Body weight 118.48 kg Adriana Clark APRN.AIR DEFENCE OFFICER Work Phone: [place] 11-16-2022 13:08-0400 Diastolic blood pressure 72 mm[Hg] Adriana Clark APRN.AIR DEFENCE OFFICER Work Phone: [place] 11-16-2022 13:08-0400 Heart rate 81 /min Adriana Clark APRN.AIR DEFENCE OFFICER Work Phone: [place] 11-16-2022 13:08-0400 SaO2% (BldA) [Mass fraction] 97 % Adriana Clark APRN.AIR DEFENCE OFFICER Work Phone: [place] 11-16-2022 13:08-0400 Systolic blood pressure 118 mm[Hg] Adriana Clark APRN.AIR DEFENCE OFFICER Work Phone: [place] 09-25-2022 12:46-0400 Body height 172.7 cm Shefali Carvajal APRN.DATABASE TECHNICIAN Work Phone: [place] 09-25-2022 12:46-0400 Body temperature 98.01 [degF] Shefali Carvajal APRN.DATABASE TECHNICIAN Work Phone: [place] 09-25-2022 12:46-0400 Body weight 119.3 kg Shefali Carvajal DEPARTMENT HEAD.DATABASE TECHNICIAN Work Phone: [place] 09-25-2022 12:46-0400 Diastolic blood pressure 82 mm[Hg] Shefali Carvajal DEPARTMENT HEAD.DATABASE TECHNICIAN Work Phone: [place] 09-25-2022 12:46-0400 Heart rate 66 /min Shefali Carvajal DEPARTMENT HEAD.DATABASE TECHNICIAN Work Phone: [place] 09-25-2022 12:46-0400 Respiratory rate 16 /min Shefali Carvajal DEPARTMENT HEAD.DATABASE TECHNICIAN Work Phone: [place] 09-25-2022 12:46-0400 SaO2% (BldA) [Mass fraction] 97 % Shefali Carvajal DEPARTMENT HEAD.DATABASE TECHNICIAN Work Phone: [place] 09-25-2022 12:46-0400 Systolic blood pressure 124 mm[Hg] Shefali Carvajal DEPARTMENT HEAD.DATABASE TECHNICIAN Work Phone: [place] 09-23-2022 14:00-0400 Body temperature 99 [degF] Fany Whitmore DEPARTMENT HEAD.AIR DEFENCE OFFICER Work Phone: [place] 09-23-2022 14:00-0400 Body weight 119.3 kg Fany Whitmore DEPARTMENT HEAD.AIR DEFENCE OFFICER Work Phone: [place] 09-23-2022 14:00-0400 Diastolic blood pressure 80 mm[Hg] Fany Whitmore DEPARTMENT HEAD.AIR DEFENCE OFFICER Work Phone: [place] 09-23-2022 14:00-0400 Heart rate 92 /min Fany Whitmore DEPARTMENT HEAD.AIR DEFENCE OFFICER Work Phone: [place] 09-23-2022 14:00-0400 Respiratory rate 16 /min Fany Whitmore DEPARTMENT HEAD.AIR DEFENCE OFFICER Work Phone: [place] 09-23-2022 14:00-0400 SaO2% (BldA) [Mass fraction] 97 % Fany Whitmore DEPARTMENT HEAD.AIR DEFENCE OFFICER Work Phone: [place] 09-23-2022 14:00-0400 Systolic blood pressure 124 mm[Hg] Fany Haim DEPARTMENT HEAD.AIR DEFENCE OFFICER Work Phone: [place] 08-18-2022 13:26-0400 Body weight 119.3 kg Adriana Clark DEPARTMENT HEAD.AIR DEFENCE OFFICER Work Phone: [place] 08-18-2022 13:26-0400 Diastolic blood pressure 80 mm[Hg] Adriana Clark DEPARTMENT HEAD.AIR DEFENCE OFFICER Work Phone: [place] 08-18-2022 13:26-0400 Systolic blood pressure 116 mm[Hg] Adriana Clark DEPARTMENT HEAD.AIR DEFENCE OFFICER Work Phone: [place] 08-02-2022 11:27-0400 Body weight 117.03 kg Cassi Rosemary DEPARTMENT HEAD.AIR DEFENCE OFFICER Work Phone: [place] 08-02-2022 11:27-0400 Diastolic blood pressure 88 mm[Hg] Cassi Rosemary DEPARTMENT HEAD.AIR DEFENCE OFFICER Work Phone: [place] 08-02-2022 11:27-0400 Heart rate 84 /min Cassi Rosemary DEPARTMENT HEAD.AIR DEFENCE OFFICER Work Phone: [place] 08-02-2022 11:27-0400 SaO2% (BldA) [Mass fraction] 98 % Cassi Rosemary DEPARTMENT HEAD.AIR DEFENCE OFFICER Work Phone: [place] 08-02-2022 11:27-0400 Systolic blood pressure 110 mm[Hg] Cassi Rosemary DEPARTMENT HEAD.AIR DEFENCE OFFICER Work Phone: [place] 07-12-2022 11:43-0400 Body weight 114.31 kg Cassi Rosemary DEPARTMENT HEAD.AIR DEFENCE OFFICER Work Phone: [place] 07-12-2022 11:43-0400 Diastolic blood pressure 80 mm[Hg] Cassi Rosemary DEPARTMENT HEAD.AIR DEFENCE OFFICER Work Phone: [place] 07-12-2022 11:43-0400 Heart rate 75 /min Cassi Rosemary DEPARTMENT HEAD.AIR DEFENCE OFFICER Work Phone: [place] 07-12-2022 11:43-0400 SaO2% (BldA) [Mass fraction] 98 % Cassi Riley DEPARTMENT HEAD.AIR DEFENCE OFFICER Work Phone: [place] 07-12-2022 11:43-0400 Systolic blood pressure 122 mm[Hg] Cassi Riley DEPARTMENT HEAD.AIR DEFENCE OFFICER Work Phone: [place] 03-09-2022 10:59-0500 Body temperature 98.71 [degF] Nurse Wstr Work Phone: [place] 03-09-2022 10:59-0500 Body weight 114.13 kg Nurse Wstr Work Phone: [place] 03-09-2022 10:59-0500 Diastolic blood pressure 78 mm[Hg] Nurse Wstr Work Phone: [place] 03-09-2022 10:59-0500 Heart rate 63 /min Nurse Wstr Work Phone: [place] 03-09-2022 10:59-0500 Respiratory rate 18 /min Nurse Wstr Work Phone: [place] 03-09-2022 10:59-0500 SaO2% (BldA) [Mass fraction] 97 % Nurse Wstr Work Phone: [place] 03-09-2022 10:59-0500 Systolic blood pressure 134 mm[Hg] Nurse Wstr Work Phone: [place] 02-02-2022 11:43-0500 Body temperature 97.5 [degF] Jhon Moseley MD Work Phone: [place] 02-02-2022 11:43-0500 Body weight 117.94 kg Jhon Moseley MD Work Phone: [place] 02-02-2022 11:43-0500 Diastolic blood pressure 70 mm[Hg] Jhon Moseley MD Work Phone: [place] 02-02-2022 11:43-0500 Heart rate 84 /min Jhon Moseley MD Work Phone: [place] 02-02-2022 11:43-0500 Respiratory rate 16 /min Jhon Moseley MD Work Phone: [place] 02-02-2022 11:43-0500 Systolic blood pressure 128 mm[Hg] Jhon Moseley MD Work Phone: [place] 10-21-2021 07:37-0400 Body weight 113.85 kg Shefali Carvajal DEPARTMENT HEAD.DATABASE TECHNICIAN Work Phone: [place] 10-21-2021 07:37-0400 Diastolic blood pressure 80 mm[Hg] Shefali Carvajal DEPARTMENT HEAD.DATABASE TECHNICIAN Work Phone: [place] 10-21-2021 07:37-0400 Heart rate 68 /min Shefali Carvajal DEPARTMENT HEAD.DATABASE TECHNICIAN Work Phone: [place] 10-21-2021 07:37-0400 Respiratory rate 16 /min Shefali Carvajal DEPARTMENT HEAD.DATABASE TECHNICIAN Work Phone: [place] 10-21-2021 07:37-0400 Systolic blood pressure 120 mm[Hg] Shefali Carvajal DEPARTMENT HEAD.DATABASE TECHNICIAN Work Phone: [place] 10-19-2021 14:44-0400 Body temperature 97.5 [degF] Satya Catalan DEPARTMENT HEAD.AIR DEFENCE OFFICER Work Phone: [place] 10-19-2021 14:44-0400 Body weight 114.67 kg Satya Catalan DEPARTMENT HEAD.AIR DEFENCE OFFICER Work Phone: [place] 10-19-2021 14:44-0400 Diastolic blood pressure 80 mm[Hg] Satya Hossein DEPARTMENT HEAD.AIR DEFENCE OFFICER Work Phone: [place] 10-19-2021 14:44-0400 Heart rate 79 /min Satya Catalan DEPARTMENT HEAD.AIR DEFENCE OFFICER Work Phone: [place] 10-19-2021 14:44-0400 Respiratory rate 20 /min Satya Catalan DEPARTMENT HEAD.AIR DEFENCE OFFICER Work Phone: [place] 10-19-2021 14:44-0400 SaO2% (BldA) [Mass fraction] 99 % Satya DEPARTMENT HEAD.AIR DEFENCE OFFICER Work Phone: [place] 10-19-2021 14:44-0400 Systolic blood pressure 110 mm[Hg] Satya Hossein DEPARTMENT HEAD.AIR DEFENCE OFFICER Work Phone: [place] 09-19-2021 12:56-0400 Body height 174 cm Shefali Carvajal DEPARTMENT HEAD.DATABASE TECHNICIAN Work Phone: [place] 09-19-2021 12:56-0400 Body weight 113.4 kg Shefali Carvajal DEPARTMENT HEAD.DATABASE TECHNICIAN Work Phone: [place] 09-19-2021 12:56-0400 Diastolic blood pressure 70 mm[Hg] Shefali Carvajal DEPARTMENT HEAD.DATABASE TECHNICIAN Work Phone: [place] 09-19-2021 12:56-0400 Heart rate 66 /min Shefali Carvajal DEPARTMENT HEAD.DATABASE TECHNICIAN Work Phone: [place] 09-19-2021 12:56-0400 Respiratory rate 16 /min Shefali Carvajal DEPARTMENT HEAD.DATABASE TECHNICIAN Work Phone: [place] 09-19-2021 12:56-0400 SaO2% (BldA) [Mass fraction] 96 % Shefali Carvajal DEPARTMENT HEAD.DATABASE TECHNICIAN Work Phone: [place] 09-19-2021 12:56-0400 Systolic blood pressure 122 mm[Hg] Shefali Carvajal DEPARTMENT HEAD.DATABASE TECHNICIAN Work Phone: [place] 09-12-2021 08:11-0400 Body height 172.[address] [place] 09-12-2021 08:11-0400 Body weight 112.[address] [place] 08-05-2021 08:04-0400 Body temperature 97.11 [degF] Shefali Carvajal DEPARTMENT HEAD.DATABASE TECHNICIAN Work Phone: [place] 08-05-2021 08:04-0400 Body weight 112.95 kg Shefali Carvajal DEPARTMENT HEAD.DATABASE TECHNICIAN Work Phone: [place] 08-05-2021 08:04-0400 Diastolic blood pressure 78 mm[Hg] Shefali Carvajal DEPARTMENT HEAD.DATABASE TECHNICIAN Work Phone: [place] 08-05-2021 08:04-0400 Heart rate 75 /min Shefali Carvajal DEPARTMENT HEAD.DATABASE TECHNICIAN Work Phone: [place] 08-05-2021 08:04-0400 Respiratory rate 16 /min Shefali Carvajal DEPARTMENT HEAD.DATABASE TECHNICIAN Work Phone: [place] 08-05-2021 08:04-0400 SaO2% (BldA) [Mass fraction] 97 % Shefali Carvajal DEPARTMENT HEAD.DATABASE TECHNICIAN Work Phone: [place] 08-05-2021 08:04-0400 Systolic blood pressure 118 mm[Hg] Shefali Carvajal DEPARTMENT HEAD.DATABASE TECHNICIAN Work Phone: [place] 07-27-2021 15:26-0400 Body temperature 98.01 [degF] Susu Athy PA-C Work Phone: [place] 07-27-2021 15:26-0400 Body weight 112.31 kg Susu Athy PA-C Work Phone: [place] 07-27-2021 15:26-0400 Diastolic blood pressure 78 mm[Hg] Susu Athy PA-C Work Phone: [place] 07-27-2021 15:26-0400 Heart rate 76 /min Susu Athy PA-C Work Phone: [place] 07-27-2021 15:26-0400 Respiratory rate 18 /min Susu Athy PA-C Work Phone: [place] 07-27-2021 15:26-0400 SaO2% (BldA) [Mass fraction] 98 % Susu Athy PA-C Work Phone: [place] 07-27-2021 15:26-0400 Systolic blood pressure 110 mm[Hg] Susu Athy PA-C Work Phone: [place] 06-24-2021 16:27-0400 Body temperature 100.2 [degF] Yi Praisler-Wood DEPARTMENT HEAD.AIR DEFENCE OFFICER Work Phone: [place] 06-24-2021 16:27-0400 Body weight 111.77 kg Yi Praisler-Wood DEPARTMENT HEAD.AIR DEFENCE OFFICER Work Phone: [place] 06-24-2021 16:27-0400 Diastolic blood pressure 74 mm[Hg] Yi Praisler-Wood DEPARTMENT HEAD.AIR DEFENCE OFFICER Work Phone: [place] 06-24-2021 16:27-0400 Heart rate 98 /min Yi Praisler-Wood DEPARTMENT HEAD.AIR DEFENCE OFFICER Work Phone: [place] 06-24-2021 16:27-0400 Respiratory rate 18 /min Yi Praisler-Wood DEPARTMENT HEAD.AIR DEFENCE OFFICER Work Phone: [place] 06-24-2021 16:27-0400 SaO2% (BldA) [Mass fraction] 98 % Yi Praisler-Wood DEPARTMENT HEAD.AIR DEFENCE OFFICER Work Phone: [place] 06-24-2021 16:27-0400 Systolic blood pressure 124 mm[Hg] Yi Praisler-Wood DEPARTMENT HEAD.AIR DEFENCE OFFICER Work Phone: [place] 06-10-2021 14:58-0400 Body weight 111.68 kg Jackie [place] DEPARTMENT HEAD.AIR DEFENCE OFFICER Work Phone: [place] 06-10-2021 14:58-0400 Diastolic blood pressure 60 mm[Hg] Jackie Zeferino DEPARTMENT HEAD.[employer] OFFICER Work Phone: [place] 06-10-2021 14:58-0400 Systolic blood pressure 110 mm[Hg] Jackie [place] DEPARTMENT HEAD.[employer] OFFICER Work Phone: [place] 05-29-2021 12:22-0400 Body temperature 97.5 [degF] Susu Garcia PA-C Work Phone: [place] 05-29-2021 12:22-0400 Body weight 109.59 kg Susu Garcia PA-C Work Phone: [place] 05-29-2021 12:22-0400 Diastolic blood pressure 62 mm[Hg] Susu Athy PA-C Work Phone: [place] 05-29-2021 12:22-0400 Heart rate 91 /min Susu Athy PA-C Work Phone: [place] 05-29-2021 12:22-0400 Respiratory rate 18 /min Susu Athy PA-C Work Phone: [place] 05-29-2021 12:22-0400 SaO2% (BldA) [Mass fraction] 99 % Susu Athy PA-C Work Phone: [place] 05-29-2021 12:22-0400 Systolic blood pressure 112 mm[Hg] Susu Athy PA-C Work Phone: [place] 05-20-2021 08:34-0400 Body temperature 97 [degF] Susu Athy PA-C Work Phone: [place] 05-20-2021 08:34-0400 Body weight 108.41 kg Susu Athy PA-C Work Phone: [place] 05-20-2021 08:34-0400 Diastolic blood pressure 82 mm[Hg] Susu Athy PA-C Work Phone: [place] 05-20-2021 08:34-0400 Heart rate 96 /min Susu Athy PA-C Work Phone: [place] 05-20-2021 08:34-0400 Respiratory rate 18 /min Susu Athy PA-C Work Phone: [place] 05-20-2021 08:34-0400 SaO2% (BldA) [Mass fraction] 100 % Susu Athy PA-C Work Phone: [place] 05-20-2021 08:34-0400 Systolic blood pressure 134 mm[Hg] Susu Athy PA-C Work Phone: [place] Encounters Encounter Date Encounter Type Care Provider Facility Start: 10-01-2024 End: 10-01-2024 Office outpatient visit 25 minutes Hung Rivero MD Work Phone: [facility] [place] Comment on above: Viral gastroenteriti s (Primary Dx); Near syncope Start: 10-01-2024 End: 10-02-2024 ambulatory Hung Rivero MD Work Phone: [facility] [place] Comment on above: 10/01/24 Online Visit Start: 09-29-2024 End: 09-29-2024 ambulatory HUNG RIVERO Facility:[facility] Start: 09-29-2024 End: 09-29-2024 Patient encounter status Hung Rivero MD Work Phone: [place] Work Phone: Start: 09-29-2024 End: 09-29-2024 Periodic preventive med est patient 40-64yrs Hung Rivero MD Work Phone: [facility] [place] Comment on above: Routine medical exam (Primary Dx); Other non-recurrent acute nonsuppurative otitis media of right ear; Acute non-recurrent maxillary sinusitis; Anxiety attack; Anxiety and depression; Class 2 obesity due to excess calories without serious comorbidity with body mass index (BMI) of 37.0 to 37.9 in adult; Vitamin D deficiency; Gastroesophageal reflux disease, unspecified whether esophagitis present; Mild obstructive sleep apnea Start: 09-29-2024 End: 09-29-2024 [facility] Facility:[facility] Start: 09-29-2024 Encounter for genera l adult medical examination without abnormal findings HUNG RIVERO [facility] Start: 08-27-2024 End: 09-02-2024 Refill Shefali Carvajal APRN.DATABASE TECHNICIAN Work Phone: [facility] [place] Comment on above: Refill Request Start: 06-26-2024 End: 06-26-2024 ambulatory [facility] Facility:[facility] Start: 06-14-2024 End: 06-14-2024 Patient encounter procedure Bridget Reyes APRN.AIR DEFENCE OFFICER Work Phone: [facility] Comment on above: Sore throat (Primary Dx); Acute otitis media, left Start: 06-14-2024 End: 06-14-2024 ambulatory HUNG RIVERO Facility:[facility] Start: 05-27-2024 End: 05-27-2024 Telephone encounter Marisabel Zavaleta MD Work Phone: OB/Gynecology Comment on above: Patient Question Start: 05-27-2024 End: 05-27-2024 Office outpatient visit 25 minutes Hung Rivero MD Work Phone: [facility] [place] Comment on above: Anxiety and depressi on (Primary Dx); Vitamin D deficiency; Polyp of corpus uteri; History of back pain; Encounter for long-term current use of medication Start: 05-27-2024 End: 05-27-2024 ambulatory HUNG RIVERO Facility:[facility] Start: 05-23-2024 End: 05-23-2024 Admission to same day surgery center Dr Marisabel Kelly MD -[facility] Start: 05-23-2024 End: 05-23-[address] Hung Rivero MD Work Phone: [facility] Work Phone: Start: 05-21-2024 End: 05-21-2024 Patient encounter procedure Marisabel Zavaleta MD Work Phone: OB/Gynecology Comment on above: Abnormal uterine ble eding (AUB) (Primary Dx); Endometrial polyp; Pre-op exam Start: 05-21-2024 End: 05-21-2024 Preprocedural examination done Marisabel Zavaleta MD Work Phone: [place] Start: 05-21-2024 End: 05-21-2024 ambulatory HUNG RIVERO Facility:[facility] Start: 05-21-2024 Encounter for other preprocedural examination MARISABEL ZAVALETA [facility] Start: 05-16-2024 End: 05-19-2024 Follow-up encounter Haylie Garza MD Work Phone: OB/Gynecology Start: 05-16-2024 End: 05-16-2024 Telephone encounter Haylie Garza MD Work Phone: OB/Gynecology Start: 05-16-2024 End: 05-16-2024 ambulatory Alanna Cheney RN NURSE [employer]PA[employer] Comment on above: Vaginal Bleeding Patient Update Start: 05-16-2024 End: 05-16-2024 Patient encounter procedure [facility] OB/Gynecology Comment on above: Abnormal uterine ble eding due to endometrial polyp (Primary Dx) Start: 05-16-2024 End: 05-16-2024 Emergency department patient visit Dr. Hung Rivero MD Work Phone: -Emergency Department Work Phone: Start: 05-08-2024 End: 05-09-2024 ambulatory HUNG RIVERO Facility:[facility] Start: 05-07-2024 End: 05-13-2024 [facility] Work Phone: Neurology Start: 04-24-2024 End: 04-24-2024 Subsequent hospital visit by physician X[facility] [place] Work Phone: Radiology Comment on above: Acute cough [R05.1] Numbness and tinglin g of lower extremity [R20.0, R20.2] Start: 04-24-2024 End: 04-24-2024 ambulatory HUNG RIVERO Facility:[facility] Start: 04-24-2024 End: 04-24-2024 Patient encounter procedure Bridget Reyes APRN.CNP Work Phone: [facility] Comment on above: Acute cough (Primary Dx); Sinus congestion Abnormal uterine ble eding (AUB) (Primary Dx); Provided repeat prescription for oral contraceptive Start: 04-19-2024 End: 04-19-2024 Office outpatient visit 25 minutes Hung Rivero MD Work Phone: [facility] [place] Comment on above: Numbness and tinglin g of lower extremity (Primary Dx); Vitamin D deficiency; Chronic midline low back pain with left-sided sciatica Start: 04-19-2024 End: 04-19-2024 ambulatory SHEFALI CARVAJAL Facility:[facility] Start: 04-07-2024 End: 04-07-2024 ambulatory HAYLIE GARZA Facility:[facility] Start: 04-07-2024 End: 04-07-2024 Patient encounter status Haylie Garza MD Work Phone: [place] Start: 04-07-2024 End: 04-07-2024 Periodic preventive med est patient 18-39 yrs Haylie Garza MD Work Phone: OB/Gynecology Comment on above: Encounter for gyneco logical examination (general) (routine) without abnormal findings (Primary Dx) Start: 04-03-2024 End: 04-03-2024 ambulatory HUNG RIVERO Facility:[facility] Start: 04-02-2024 End: 04-03-2024 Telephone encounter Haylie Garza MD Work Phone: OB/Gynecology Comment on above: Appointment Start: 04-01-2024 End: 04-01-2024 Office outpatient visit 25 minutes Hung Rivero MD Work Phone: [facility] [place] Comment on above: Tail bone pain (Prim erick Dx); Numbness in feet; Bilateral hand numbness; Bilateral leg numbness; Vitamin D deficiency; Class 2 obesity with body mass index (BMI) of 37.0 to 37.9 in adult, unspecified obesity type, unspecified whether serious comorbidity present; Anxiety attack; Recurrent major depressive disorder, in partial remission (HCC); Amenorrhea, secondary; Snoring; Daytime sleepiness Start: 04-01-2024 End: 04-01-2024 ambulatory HUNG RIVERO Facility:[facility] Start: 02-19-2024 End: 02-19-2024 ambulatory [facility] Facility:[facility] Start: 02-19-2024 End: 02-19-2024 Office outpatient visit 25 minutes Shefali Carvajal DEPARTMENT HEAD.DATABASE TECHNICIAN Work Phone: [facility] [place] Comment on above: Sinobronchitis (Prim erick Dx); Anxiety and depression Start: 11-16-2023 ambulatory Hung Rivero Facilit y:[facility] Start: 10-16-2023 End: 11-05-2023 ambulatory Hung Rivero Facility:[facility] Start: 09-11-2023 End: 10-06-2023 ambulatory Adriana Clark FOLDER SEAMER Facility:[facility] Start: 09-10-2023 End: 09-10-2023 Patient encounter procedure Shefali Carvajal APRN.DATABASE TECHNICIAN Work Phone: [facility] [place] Comment on above: Wellness examination (Primary Dx); Anxiety attack; Anxiety and depression; Class 2 obesity with body mass index (BMI) of 37.0 to 37.9 in adult, unspecified obesity type, unspecified whether serious comorbidity present Start: 09-10-2023 End: 09-10-2023 Patient encounter status Shefali Wei CAMARILLO.DATABASE TECHNICIAN Work Phone: [place] Work Phone: Start: 09-05-2023 Physical examination Shefali crawford DEPARTMENT HEAD.DATABASE TECHNICIAN Work Phone: [place] Work Phone: Start: 09-05-2023 Telephone encounter Shefali lincoln DEPARTMENT HEAD.DATABASE TECHNICIAN Work Phone: Internal [facility] Start: 07-31-2023 Refill Hung fernandez MD Work Phone: Internal [facility] Comment on above: Refill Request Start: 07-30-2023 End: 08-05-2023 ambulatory Adriana Clark FOLDER SEAMER Facility:[facility] Start: 06-22-2023 End: 06-22-2023 Patient encounter procedure Sophie Arora MD Work Phone: OB/Gynecology Comment on above: Vaginal discomfort ( Primary Dx) Start: 06-01-2023 Refill Cassi Riley APRN.AIR DEFENCE OFFICER Work Phone: Internal [facility] Comment on above: Refill Request Start: 05-28-2023 End: 06-05-2023 ambulatory [facility] Work Phone: Start: 05-28-2023 End: 06-05-2023 Discharged Recurring [facility] Work Phone: Start: 04-30-2023 End: 05-06-2023 ambulatory [facility] Work Phone: Start: 04-30-2023 End: 05-06-2023 [facility] Start: 03-26-2023 End: 04-05-2023 ambulatory [facility] Work Phone: Start: 03-26-2023 End: 04-05-2023 [facility] Start: 03-13-2023 End: 03-13-2023 Patient encounter procedure Adriana Clark APRN.AIR DEFENCE OFFICER Work Phone: OB/Gynecology Comment on above: Encounter for gyneco logical examination (general) (routine) without abnormal findings (Primary Dx); Surveillance for control, oral contraceptives; Encounter for Papanicolaou smear for cervical cancer screening; Special screening examination for human papillomavirus (HPV) Start: 03-13-2023 End: 03-13-2023 Patient encounter status Adriana Clark APRN.CNP Work Phone: [place] Work Phone: Start: 02-08-2023 End: 03-07-2023 [facility] Start: 01-24-2023 Refill Shefali Carvajal APRN.CNS Work Phone: [facility] [place] Comment on above: Medication Request Start: 01-21-2023 End: 01-21-2023 Emergency department patient visit [facility] Work Phone: Start: 01-15-2023 Telephone encounter Hung polo MD Work Phone: [facility] [place] Comment on above: Patient Update; Danielle ent Question Start: 01-15-2023 End: 01-15-2023 ambulatory Shefali Carvajal APRN.CNS Work Phone: [facility] [place] Comment on above: Cellulitis of skin; Rash Start: 01-15-2023 End: 01-15-2023 Telemedicine consultation with patient Shefali Carvajal APRN.DATABASE TECHNICIAN Work Phone: [facility] [place] Start: 12-26-2022 End: 12-26-2022 Patient encounter procedure Adriana Clark APRN.AIR DEFENCE OFFICER Work Phone: OB/Gynecology Comment on above: Dyslipidemia (Primar y Dx); Depression, unspecified depression type; Anxiety; Vitamin D deficiency; Class 2 obesity without serious comorbidity with body mass index (BMI) of 39.0 to 39.9 in adult, unspecified obesity type Start: 12-20-2022 ambulatory Shefali Carvajal DEPARTMENT HEAD.DATABASE TECHNICIAN Work Phone: [facility] [place] Comment on above: Rash Start: 12-20-2022 Telephone encounter Niko Bojorquez PA Work Phone: [facility] Start: 12-20-2022 End: 12-20-2022 Patient encounter procedure Quita Dueñas DEPARTMENT HEAD.AIR DEFENCE OFFICER Work Phone: [facility] Comment on above: Cellulitis of skin ( Primary Dx); Rash; Bad odor of urine; Vaginal discharge Start: 12-19-2022 End: 12-19-2022 Patient encounter procedure Satya Catalan APRN.AIR DEFENCE OFFICER Work Phone: [facility] Comment on above: Rash (Primary Dx) Start: 12-04-2022 End: 12-04-2022 ambulatory Shefali Carvajal DEPARTMENT HEAD.DATABASE TECHNICIAN Work Phone: [facility] [place] Comment on above: Anxiety and depressi on (Primary Dx); Class 2 obesity with body mass index (BMI) of 38.0 to 38.9 in adult, unspecified obesity type, unspecified whether serious comorbidity present Start: 12-04-2022 End: 12-04-2022 Telemedicine consultation with patient Shefali Carvajal APRN.DATABASE TECHNICIAN Work Phone: [facility] [place] Start: 11-16-2022 End: 11-16-2022 Patient encounter procedure Adriana Clark APRN.AIR DEFENCE OFFICER Work Phone: OB/Gynecology Comment on above: Dyslipidemia (Primar y Dx); Depression, unspecified depression type; Anxiety; Vitamin D deficiency; Surveillance for control, oral contraceptives; Class 2 obesity without serious comorbidity with body mass index (BMI) of 39.0 to 39.9 in adult, unspecified obesity type Start: 10-27-2022 End: 10-27-2022 ambulatory Shefali Griffinrebecca FRANCISCODATABASE TECHNICIAN Work Phone: [facility] [place] Comment on above: Anxiety and depressi on (Primary Dx); Class 2 obesity with body mass index (BMI) of 38.0 to 38.9 in adult, unspecified obesity type, unspecified whether serious comorbidity present Start: 10-27-2022 End: 10-27-2022 Telemedicine consultation with patient Shefali Carvajal MARQUISE.DATABASE TECHNICIAN Work Phone: [facility] [place] Start: 09-25-2022 End: 09-25-2022 Office outpatient visit 25 minutes Shefali Carvajal APRN.DATABASE TECHNICIAN Work Phone: [facility] [place] Comment on above: Sore throat (Primary Dx); Anxiety and depression; Class 2 obesity with body mass index (BMI) of 38.0 to 38.9 in adult, unspecified obesity type, unspecified whether serious comorbidity present; Encounter for immunization Start: 09-23-2022 End: 09-23-2022 Patient encounter procedure Fany Whitmore DEPARTMENT HEAD.AIR DEFENCE OFFICER Work Phone: [facility] Comment on above: Sore throat (Primary Dx); URI, acute; Headache, unspecified headache type Start: 09-19-2022 Telephone encounter Hung polo MD Work Phone: [facility] [place] Comment on above: Lab Orders Start: 08-18-2022 End: 08-18-2022 Patient encounter procedure Adriana Clark DEPARTMENT HEAD.AIR DEFENCE OFFICER Work Phone: OB/Gynecology Comment on above: General counseling a nd advice for contraceptive management (Primary Dx); Depression, unspecified depression type; Class 2 obesity with body mass index (BMI) of 39.0 to 39.9 in adult, unspecified obesity type, unspecified whether serious comorbidity present Start: 08-14-2022 Telephone encounter Hung polo MD Work Phone: [facility] [place] Comment on above: Medication Problem Start: 08-02-2022 End: 08-02-2022 Office outpatient visit 15 minutes Cassi Riley APRN.CNP Work Phone: [facility] [place] Comment on above: Anxiety (Primary Dx) ; Anxiety attack; Class 2 obesity with body mass index (BMI) of 38.0 to 38.9 in adult, unspecified obesity type, unspecified whether serious comorbidity present Start: 07-12-2022 End: 07-12-2022 Patient encounter procedure Cassi Riley APRN.CNP Work Phone: [facility] [place] Comment on above: Anxiety (Primary Dx) ; Anxiety attack; Other fatigue; HELDER (obstructive sleep apnea); Vitamin D deficiency; Class 2 obesity with body mass index (BMI) of 37.0 to 37.9 in adult, unspecified obesity type, unspecified whether serious comorbidity present; Encounter for therapeutic drug monitoring Start: 07-10-2022 End: 07-10-2022 ambulatory Jakydejadaren Sandra WYNN Work Phone: Telemedicine Comment on above: Anxiety attack (Prim erick Dx) Start: 07-10-2022 End: 07-10-2022 Telemedicine consultation with patient Manjit Sandra WYNN Work Phone: [facility] Start: 03-09-2022 End: 03-09-2022 ambulatory Magi Alissa WYNN Work Phone: Telemedicine Comment on above: Acute pharyngitis, u nspecified etiology (Primary Dx); URI, acute Results Start: 03-09-2022 E-mail encounter fro m caregiver Magi Maxwell TIANNA Work Phone: [facility] Start: 03-09-2022 End: 03-09-2022 Nursing evaluation of patient and report Nurse [facility] Work Phone: [facility] Comment on above: Throat pain in adult (Primary Dx); Throat pain Start: 03-09-2022 End: 03-09-2022 Telemedicine consultation with patient Magi Maxwell DEPARTMENT HEAD.AIR DEFENCE OFFICER Work Phone: [facility] Start: 02-02-2022 End: 02-02-2022 Patient encounter procedure Jhon Moseley MD Work Phone: [facility] [place] Comment on above: Acute midline low ba ck pain without sciatica (Primary Dx) Start: 10-21-2021 End: 10-21-2021 Patient encounter procedure Shefali Carvajal APRN.DATABASE TECHNICIAN Work Phone: [facility] [place] Comment on above: Tension headache (Pr imary Dx); Encounter for immunization; Need for influenza vaccination; Cervicalgia Start: 10-19-2021 End: 10-19-2021 Patient encounter procedure Satya Catalan APRN.AIR DEFENCE OFFICER Work Phone: [facility] Comment on above: Headache, unspecifie d headache type (Primary Dx) Start: 09-19-2021 End: 09-19-2021 Patient encounter procedure Shefali Carvajal APRN.DATABASE TECHNICIAN Work Phone: [facility] [place] Comment on above: Routine medical exam (Primary Dx); Encounter for immunization; Class 2 obesity with body mass index (BMI) of 37.0 to 37.9 in adult, unspecified obesity type, unspecified whether serious comorbidity present; Post-COVID chronic cough Start: 09-19-2021 End: 09-19-2021 Patient encounter status Shefali Carvajal APRN.DATABASE TECHNICIAN Work Phone: [facility] [place] Start: 09-12-2021 End: 09-12-[address] Nutrition Therapy Comment on above: Patient Education (\ ); Assessment Start: 08-05-2021 End: 08-05-2021 Patient encounter procedure Shefali Carvajal APRN.DATABASE TECHNICIAN Work Phone: [facility] [place] Comment on above: Post-COVID chronic c ough (Primary Dx); Fatigue after COVID-19 vaccination; Class 2 obesity with body mass index (BMI) of 37.0 to 37.9 in adult, unspecified obesity type, unspecified whether serious comorbidity present Start: 07-27-2021 End: 07-27-2021 Subsequent hospital visit by physician Xr [facility] [place] Work Phone: Radiology Comment on above: Cough [R05.9] Start: 07-27-2021 End: 07-27-2021 Patient encounter procedure Susu Garcia PA-C Work Phone: [facility] Comment on above: Post-COVID chronic c ough (Primary Dx) Start: 07-27-2021 Telephone encounter Hung polo MD Work Phone: [facility] [place] Comment on above: Patient Question Start: 06-30-2021 End: 06-30-2021 ambulatory Manjit Flores DEPARTMENT HEAD.AIR DEFENCE OFFICER Work Phone: Telemedicine Comment on above: Treatment not availa ble (Primary Dx) COVID-19 virus infec tion (Primary Dx); Post-nasal drainage Procedure and treatm ent not carried out for other reasons (Primary Dx) Start: 06-30-2021 End: 06-30-2021 Telemedicine consultation with patient Manjit Monroekenyatta HUFFN.AIR DEFENCE OFFICER Work Phone: [facility] Start: 06-25-2021 Telephone encounter Hung polo MD Work Phone: [facility] [place] Comment on above: Covid19 Concern Start: 06-24-2021 End: 06-24-2021 Patient encounter procedure Yi Barajas DEPARTMENT HEAD.AIR DEFENCE OFFICER Work Phone: [facility] Comment on above: Suspected COVID-19 v irus infection (Primary Dx) Start: 06-10-2021 End: 06-10-2021 Patient encounter procedure Jackie Mcgarry DEPARTMENT HEAD.AIR DEFENCE OFFICER Work Phone: OB/Gynecology Comment on above: Labial cyst (Primary Dx) Start: 06-10-2021 Patient encounter status Hung Rivero MD Work Phone: [facility] [place] Start: 06-10-2021 Telephone encounter Hung polo MD Work Phone: [facility] [place] Comment on above: Lab Orders Start: 06-06-2021 Telephone encounter Jackie Veloz angel DEPARTMENT HEAD.AIR DEFENCE OFFICER Work Phone: OB/Gynecology Comment on above: AUB Start: 05-29-2021 End: 05-29-2021 Patient encounter procedure Susu Menendez Radha WAGNER Work Phone: [facility] Comment on above: Bronchitis (Primary Dx) Start: 05-23-2021 End: 05-23-2021 ambulatory Manjit Flores MARQUISE.AIR DEFENCE OFFICER Work Phone: Telemedicine Comment on above: Pharyngitis, unspeci fied etiology (Primary Dx); Acute non-recurrent maxillary sinusitis Start: 05-23-2021 End: 05-23-2021 Telemedicine consultation with patient Manjit Flores MARQUISE.AIR DEFENCE OFFICER Work Phone: [facility] Start: 05-20-2021 End: 05-20-2021 Patient encounter procedure Susu Menendez Radha WAGNER Work Phone: [facility] Comment on above: Bacterial sinusitis (Primary Dx) Start: 04-15-2021 Telephone encounter Hung polo MD Work Phone: [facility] [place] Comment on above: Patient Request: GI Referral Procedures Date Procedure Procedure Detail Performing Clinician Start: 05-23-[address] Hung cordova MD Work Phone: Start: 05-16-2024 Us pelvic nonobstetr ic real-time image complete Adriana Clark APRN.AIR DEFENCE OFFICER Work Phone: Start: 04-24-2024 Radiologic exam ches t 2 views Bridget Reyes DEPARTMENT HEAD.AIR DEFENCE OFFICER Work Phone: Start: 01-21-2023 SARS-CoV-2 & FLU Ant igen (Rapid) Start: 01-21-2023 Viral antigen assay Start: 12-20-2022 Urnls dip stick/tabl et rgnt auto w/o microscopy Quita Dueñas DEPARTMENT HEAD.AIR DEFENCE OFFICER Work Phone: Start: 09-23-2022 STREP A MOLECULAR (POC) Fany Whitmore DEPARTMENT HEAD.AIR DEFENCE OFFICER Work Phone: Start: 03-09-2022 STREP A MOLECULAR (POC) Magi Maxwell APRN.AIR DEFENCE OFFICER Work Phone: Start: 10-21-2021 INFLUENZA VACCINE QUADRIVALENT 6 MO - 64 YRS IM Shefali Carvajal DEPARTMENT HEAD.DATABASE TECHNICIAN Work Phone: Start: 07-27-2021 Radiologic exam ches t 2 views Susu Garcia PA-C Work Phone: Plan of Treatment Date Care Activity Detail Author Start: 07-18-2028 Urine microalbumin profile [place] Start: 03-13-2028 Screening for malign ant neoplasm of cervix [place] Start: 09-14-2025 End: 09-14-2025 Patient encounter procedure 09/14/2025 4:20 PM EDT Office Visit [facility] [address] [place] [id number] Hung Rivero MD [address] [facility] [place], [place] [id number] physical for employee heal plan [facility] [place] Comment on above: physical for employe e [employer] plan Start: 04-19-2025 Hepatitis B Vaccine (1 of 3 - 19+ 3-dose series) Hepatitis B Vaccine (1 of 3 - 19+ 3-dose series) [place] Comment on above: Postponed from 01/28 (Declined at this time) Start: 03-23-2025 End: 03-23-2025 Patient encounter procedure 03/23/2025 4:00 PM EST Office Visit [facility] [place] [address] [place] [id number] Hung Rivero MD [address] [place], [place] [id number] 6 month follow up [facility] [place] Comment on above: 6 month follow up Start: 10-06-2024 Influenza vaccination Influenza Vacc ine (#1) [place] Start: 09-29-2024 End: 09-29-2024 Patient encounter procedure 09/29/2024 8:00 AM EDT Office Visit [facility] [place] [address] [place] [id number] Hung Rivero MD [address] [place] [address] Yearly exam [facility] [place] Comment on above: Yearly exam Start: 08-26-2024 End: 11-25-2024 25-hydroxyvitamin D3 [Mass/volume] in Serum or Plasma VITAMIN D 25 HYDROXY Lab Routine Vitamin D deficiency Encounter for long-term current use of medication Expected: 08/26/2024, Expires: 11/25/2024 [place] Comment on above: Expected: 08/26/2024 , Expires: 11/25/2024 Start: 08-26-2024 End: 11-25-2024 CBC panel - Blood by Automated count COMPLETE BLOOD COUNT Lab Routine Encounter for long-term current use of medication Expected: 08/26/2024, Expires: 11/25/2024 [place] Comment on above: Expected: 08/26/2024 , Expires: 11/25/2024 Start: 08-26-2024 End: 11-25-2024 Comprehensive metabolic 2000 panel - Serum or Plasma COMPREHENSIVE METABOLIC PANEL Lab Routine Encounter for long-term current use of medication Expected: 08/26/2024, Expires: 11/25/2024 [facility] Work Phone: Comment on above: Expected: 08/26/2024 , Expires: 11/25/2024 Start: 05-27-2024 End: 05-27-2024 Patient encounter procedure 05/27/2024 10:40 AM EDT Office Visit Internal Medicine [place] [address] [place] [address] Hung Rivero MD [address] [place] [address] 4 week follow up- numbness [facility] [place] Comment on above: 4 week follow up- nu mbness Start: 05-23-2024 End: 05-23-2024 Patient encounter procedure 05/23/2024 2:40 PM EDT Office Visit Internal Medicine [place] [address] [facility] [place], [place] [address] Hung Rivero MD [address] [place] [address] 4 week follow up- numbness [facility] [place] Comment on above: 4 week follow up- nu mbness Start: 05-23-2024 Ambulation without limitation [facility] Start: 05-23-2024 Medical regimen orde rs management [facility] Start: 05-23-2024 Medication education [facility] Start: 05-23-2024 Patient discharge [facility] Start: 05-23-2024 Procedure discontinued [facility] Start: 05-23-2024 Taking patient vital signs [facility] Start: 05-23-2024 Vital signs measurements [facility] Start: 05-23-2024 [facility] Start: 05-21-2024 End: 05-21-2024 Patient encounter procedure 05/21/2024 9:20 AM EDT Office Visit OB/Gynecology [address] [place] [address] Marisabel Crystal MD [address] [place] [address] surgery 05/23 OB/Gynecology Comment on above: surgery 05/23 Start: 05-16-2024 [facility] Start: 05-09-2024 End: 05-09-2024 Patient encounter procedure Neurology Comment on above: Class 2 obesity with body mass index (BMI) of 37.0 to 37.9 in adult, unspecified obesity type, unspecified whether serious comorbidity present [E66.812, Z68.37]; Snoring [R06.83]; Daytime sleepiness [R40.0] Class 2 obesity with body mass index (BMI) of 37.0 to 37.9 in adult, unspecified obesity type, unspecified whether serious comorbidity present; Snoring; Daytime sleepiness Start: 04-24-2024 End: 04-24-2024 Patient encounter procedure 04/24/2024 9:30 AM EDT Office Visit OB/Gynecology [address] [place] [address] Adriana Clark APRN.AIR DEFENCE OFFICER [address] [place] [address] annual OB/Gynecology Comment on above: annual Start: 04-19-2024 End: 04-19-2024 Patient encounter procedure 04/19/2024 10:40 AM EDT Office Visit Internal Medicine [place] [address] [place] [address] Hung Rivero MD [address] [place] [address] 6 month f/u [facility] [place] Comment on above: 6 month f/u Start: 04-07-2024 End: 04-07-2024 Patient encounter procedure 04/07/2024 1:40 PM EST Office Visit OB/Gynecology [address] [place] [address] Haylie Garza MD [address] [place] [address] Amenorrhea OB/Gynecology Comment on above: Amenorrhea Start: 04-03-2024 End: 04-03-2024 ambulatory 04/03/2024 4:45 PM EST Results Only [place] [facility] Draw Station [address] [place] [address] [place] [facility] Draw Station Start: 04-01-2024 End: 07-01-2024 25-hydroxyvitamin D3 [Mass/volume] in Serum or Plasma VITAMIN D 25 HYDROXY Lab Routine Numbness in feet Bilateral hand numbness Bilateral leg numbness Expected: 04/01/2024, Expires: 07/01/2024 [place] Comment on above: Expected: 04/01/2024 , Expires: 07/01/2024 Start: 04-01-2024 End: 07-01-2024 CBC panel - Blood by Automated count COMPLETE BLOOD COUNT Lab Routine Numbness in feet Bilateral hand numbness Bilateral leg numbness Expected: 04/01/2024, Expires: 07/01/2024 [place] Comment on above: Expected: 04/01/2024 , Expires: 07/01/2024 Start: 04-01-2024 End: 07-01-2024 Cobalamin (Vitamin B12) [Mass/volume] in Serum or Plasma VITAMIN B12 Lab Routine Numbness in feet Bilateral hand numbness Bilateral leg numbness Expected: 04/01/2024, Expires: 07/01/2024 [place] Comment on above: Expected: 04/01/2024 , Expires: 07/01/2024 Start: 04-01-2024 End: 07-01-2024 Comprehensive metabolic 2000 panel - Serum or Plasma COMPREHENSIVE METABOLIC PANEL Lab Routine Numbness in feet Bilateral hand numbness Bilateral leg numbness Expected: 04/01/2024, Expires: 07/01/2024 [facility] Work Phone: Comment on above: Expected: 04/01/2024 , Expires: 07/01/2024 Start: 04-01-2024 End: 07-01-2024 Pyridoxine [Mass/volume] in Serum or Plasma VITAMIN B6/PYRIDOXIN Lab Routine Numbness in feet Bilateral hand numbness Bilateral leg numbness Expected: 04/01/2024, Expires: 07/01/2024 [place] Comment on above: Expected: 04/01/2024 , Expires: 07/01/2024 Start: 04-01-2024 End: 07-01-2024 Thyrotropin [Units/volume] in Serum or Plasma THYROID STIMULATING HORMONE Lab Routine Numbness in feet Bilateral hand numbness Bilateral leg numbness Expected: 04/01/2024, Expires: 07/01/2024 [place] Comment on above: Expected: 04/01/2024 , Expires: 07/01/2024 Start: 04-01-2024 End: 07-01-2024 Thyroxine (T4) free [Mass/volume] in Serum or Plasma T4 FREE/FREE THYROXINE Lab Routine Numbness in feet Bilateral hand numbness Bilateral leg numbness Expected: 04/01/2024, Expires: 07/01/2024 [place] Comment on above: Expected: 04/01/2024 , Expires: 07/01/2024 Start: 04-01-2024 End: 07-01-2024 Triiodothyronine (T3) Free [Mass/volume] in Serum or Plasma T3, FREE Lab Routine Numbness in feet Bilateral hand numbness Bilateral leg numbness Vitamin D deficiency Expected: 04/01/2024, Expires: 07/01/2024 [place] Comment on above: Expected: 04/01/2024 , Expires: 07/01/2024 Start: 03-17-2024 End: 03-17-2024 Patient encounter procedure 03/17/2024 10:40 AM EST Office Visit Internal Medicine [place] [address] [place] [address] Hung Rivero MD [address] [place] [address] 6 month f/u Internal Medicine [place] Comment on above: 6 month f/u Start: 03-14-2024 End: 03-14-2024 Patient encounter procedure OB/Gynecology Comment on above: annual Start: 10-07-2023 Covid-19 Vaccine () Covid-19 Vaccine () [place] Start: 10-07-2023 Influenza vaccination Influenza Vacc ine (#1) [place] Start: 09-10-2023 End: 09-10-2023 Patient encounter procedure 09/10/2023 10:40 AM EDT Office Visit Internal Medicine [place] [address] [facility] [place] [address] Shefali Carvajal APRN.DATABASE TECHNICIAN [address] [place] [address] Yearly Exam Internal Medicine [place] Comment on above: Yearly Exam Start: 09-06-2023 End: 12-06-2023 25-hydroxyvitamin D3 [Mass/volume] in Serum or Plasma VITAMIN D 25 HYDROXY Lab Routine Routine physical examination Vitamin D deficiency Expected: 09/06/2023, Expires: 12/06/2023 [place] Comment on above: Expected: 09/06/2023 , Expires: 12/06/2023 Start: 09-06-2023 End: 12-06-2023 CBC W Auto Differential panel - Blood COMPLETE BLOOD COUNT AND DIFFERENTIAL Lab Routine Routine physical examination Expected: 09/06/2023, Expires: 12/06/2023 [place] Comment on above: Expected: 09/06/2023 , Expires: 12/06/2023 Start: 09-06-2023 End: 12-06-2023 Comprehensive metabolic 2000 panel - Serum or Plasma COMPREHENSIVE METABOLIC PANEL Lab Routine Routine physical examination Encounter for screening for diabetes mellitus Expected: 09/06/2023, Expires: 12/06/2023 [facility] Work Phone: Comment on above: Expected: 09/06/2023 , Expires: 12/06/2023 Start: 09-06-2023 End: 12-06-2023 Lipid 1996 panel - Serum or Plasma LIPID PANEL BASIC Lab Routine Routine physical examination Screening for lipid disorders Expected: 09/06/2023, Expires: 12/06/2023 [place] Comment on above: Expected: 09/06/2023 , Expires: 12/06/2023 Start: 07-13-2023 End: 07-13-2023 Patient encounter procedure 07/13/2023 4:00 PM EDT Office Visit OB/Gynecology [address] [place] [address] Adriana Clark, DEPARTMENT HEAD.AIR DEFENCE OFFICER [address] [place] [address] 3 MTH F/U WEIGHT MGT OB/Gynecology Comment on above: 3 MTH F/U WEIGHT MGT Start: 06-13-2023 End: 06-13-2023 Patient encounter procedure 06/13/2023 4:00 PM EDT Office Visit OB/Gynecology [address] [place] [address] Adriana Clark, DEPARTMENT HEAD.AIR DEFENCE OFFICER [address] [place] [address] 3 MTH F/U WEIGHT MGT OB/Gynecology Comment on above: 3 MTH F/U WEIGHT MGT Start: 03-24-2023 Hepb vaccine adult 3 dose schedule for im use HEP B VACCINE, 3-DOSE, AGE 20+ YR (ENGERIX-B, RECOMBIVAX HB) Immunization/Injection Routine Encounter for immunization Expected: 03/24/2023 [facility] Work Phone: Comment on above: Expected: 03/24/2023 Start: 01-21-2023 [facility] Start: 01-21-2023 [facility] Start: 11-23-2022 HPV TESTING HPV TESTING [place] Start: 11-23-2022 PAP TESTING PAP TESTING [place] Start: 11-23-2022 Screening for malign ant neoplasm of cervix [place] Start: 10-26-2022 Hepb vaccine adult 3 dose schedule for im use HEP B VACCINE, 3-DOSE, AGE 20+ YR (ENGERIX-B, RECOMBIVAX HB) Immunization/Injection Routine Encounter for immunization Expected: 10/26/2022 [facility] Work Phone: Comment on above: Expected: 10/26/2022 Start: 10-06-2022 Covid-19 Vaccine ( season) Covid-19 Vaccine () [place] Start: 10-06-2022 Influenza vaccination [facility] Start: 09-23-2022 End: 10-07-2022 COVID & INFLUENZA A/B & RSV NAAT, ROUTINE COVID & INFLUENZA A/B & RSV NAAT, ROUTINE Microbiology Routine URI, acute Expected: 09/23/2022, Expires: 10/07/2022 [facility] Work Phone: Comment on above: Expected: 09/23/2022 , Expires: 10/07/2022 Start: 09-19-2022 End: 11-19-2022 Lipid 1996 panel - Serum or Plasma LIPID PANEL BASIC Lab Routine Screening for lipid disorders Expected: 09/19/2022, Expires: 11/19/2022 [facility] Work Phone: Comment on above: Expected: 09/19/2022 , Expires: 11/19/2022 Start: 07-12-2022 End: 09-11-2022 Cobalamin (Vitamin B12) [Mass/volume] in Serum or Plasma [facility] Work Phone: Comment on above: Expected: 07/12/2022 , Expires: 09/11/2022 Start: 07-12-2022 End: 09-11-2022 Comprehensive metabolic 2000 panel - Serum or Plasma [facility] Work Phone: Comment on above: Expected: 07/12/2022 , Expires: 09/11/2022 Start: 07-12-2022 End: 09-11-2022 Iron and Iron binding capacity panel - Serum or Plasma [facility] Work Phone: Comment on above: Expected: 07/12/2022 , Expires: 09/11/2022 Start: 07-12-2022 End: 09-11-2022 Thyrotropin [Units/volume] in Serum or Plasma [facility] Work Phone: Comment on above: Expected: 07/12/2022 , Expires: 09/11/2022 Start: 07-12-2022 End: 09-11-2022 Thyroxine (T4) free [Mass/volume] in Serum or Plasma [facility] Work Phone: Comment on above: Expected: 07/12/2022 , Expires: 09/11/2022 Start: 07-12-2022 End: 09-11-2022 Triiodothyronine (T3) Free [Mass/volume] in Serum or Plasma [facility] Work Phone: Comment on above: Expected: 07/12/2022 , Expires: 09/11/2022 Start: 10-06-2021 End: 06-12-2022 Comprehensive metabolic 2000 panel - Serum or Plasma COMP METABOLIC PANEL Lab Routine Anxiety Routine medical exam Screening for diabetes mellitus Expected: 10/06/2021 (Approximate), Expires: 06/12/2022 [facility] Work Phone: Comment on above: Expected: 10/06/2021 (Approximate), Expires: 06/12/2022 Start: 10-06-2021 Influenza vaccination INFLUENZA (#1) [place] Start: 10-06-2021 End: 06-12-2022 LIPID PANEL BASIC LIPID PANEL BASIC Lab Routine Routine medical exam Screening for hyperlipidemia Expected: 10/06/2021 (Approximate), Expires: 06/12/2022 [facility] Work Phone: Comment on above: Expected: 10/06/2021 (Approximate), Expires: 06/12/2022 Start: 06-24-2021 End: 07-08-2021 Influenza virus A and B RNA and SARS-CoV-2 (COVID-19) N gene panel - Respiratory specimen by LYNNE with probe detection COVID WITH FLUA+B, ROUTINE Microbiology Routine Suspected COVID-19 virus infection Expected: 06/24/2021, Expires: 07/08/2021 [facility] Work Phone: Comment on above: Expected: 06/24/2021 , Expires: 07/08/2021 Start: 01-29-2004 Hepatitis B Vaccine (1 of 3 - 19+ 3-dose series) Hepatitis B Vaccine (1 of 3 - 19+ 3-dose series) [place] Start: 1985 HEPATITIS B (1 of 3 - 3-dose series) HEPATITIS B (1 of 3 - 3-dose series) [place] Start: 1985 Hepatitis B Vaccine (1 of 3 - 3-dose series) Hepatitis B Vaccine (1 of 3 - 3-dose series) [place] Bacteria identified in Urine by Culture URINE CULTURE Microbiology Routine Bad odor of urine Vaginal discharge 12/20/2022 3:32 PM EST [facility] Work Phone: Hepb vaccine adult 3 dose schedule for im use HEPATITIS B VACCINE, ADULT AGE 20+, IM Immunization/Injection Routine Encounter for immunization Ordered: 09/19/2021 [facility] Work Phone: Comment on above: Ordered: 09/19/2021 Hepb vaccine adult 3 dose schedule for im use HEP B VACCINE, 3-DOSE, AGE 20+ YR (ENGERIX-B, RECOMBIVAX HB) Immunization/Injection Routine Encounter for immunization 1 Occurrences starting 09/25/2022 [facility] Work Phone: Comment on above: 1 Occurrences starti ng 09/25/2022 Herpes simplex virus+Varicella zoster virus DNA [Presence] in Unspecified specimen by LYNNE with probe detection HSV1,2/VZV NAAT LESION Lab Routine Rash 12/19/2022 6:44 PM EST [facility] Work Phone: End: 07-12-2023 HOME SLEEP APNEA TEST (HSAT) HOME SLEEP APNEA TEST (HSAT) Procedures Routine Other fatigue HELDER (obstructive sleep apnea) Class 2 obesity with body mass index (BMI) of 37.0 to 37.9 in adult, unspecified obesity type, unspecified whether serious comorbidity present 1 Occurrences starting 07/12/2022 until 07/12/2023 [facility] Work Phone: Comment on above: 1 Occurrences starti ng 07/12/2022 until 07/12/2023 End: 04-01-2025 HOME SLEEP APNEA TEST (HSAT) HOME SLEEP APNEA TEST (HSAT) Procedures Routine Class 2 obesity with body mass index (BMI) of 37.0 to 37.9 in adult, unspecified obesity type, unspecified whether serious comorbidity present Snoring Daytime sleepiness 1 Occurrences starting 04/01/2024 until 04/01/2025 [place] Comment on above: 1 Occurrences starti ng 04/01/2024 until 04/01/2025 Insertion intrauteri ne device iud INSERT INTRAUTERINE DEVICE Procedures Routine General counseling and advice for contraceptive management Ordered: 08/18/2022 [facility] Work Phone: Comment on above: Ordered: 08/18/2022 PAP TEST PAP TEST Lab Kenny wolff Encounter for gynecological examination (general) (routine) without abnormal findings Encounter for Papanicolaou smear for cervical cancer screening Special screening examination for human papillomavirus (HPV) 03/13/2023 10:06 AM EST [facility] Work Phone: Patient Education [facility] Work Phone: Patient referral [facility] Work Phone: End: 06-28-2022 Radiologic exam chest 2 views XR CHEST 2V FRONTAL/LAT Radiology STAT Bronchitis 1 Occurrences starting 05/29/2021 until 06/28/2022 [facility] Work Phone: Comment on above: 1 Occurrences starti ng 05/29/2021 until 06/28/2022 ROUTINE FLU A/B + RSV ROUTINE FL U A/B + RSV Lab Routine URI, acute Ordered: 09/23/2022 [facility] Work Phone: Comment on above: Ordered: 09/23/2022 SARS-CoV-2 (COVID-19 ) RNA [Presence] in Respiratory specimen by LYNNE with probe detection COVID NAAT, ROUTINE Microbiology Routine URI, acute Ordered: 09/23/2022 [facility] Work Phone: Comment on above: Ordered: 09/23/2022 XR Lumbar spine View s W flexion and W extension XR LUMBAR MOTION 4V AP/LAT/ FLEX/EXT Radiology Routine Numbness and tingling of lower extremity Chronic midline low back pain with left-sided sciatica 04/24/2024 11:09 AM EDT [facility] Work Phone: [facility] Immunizations Immunization Date Immunization Notes Care Provider [facility] 11-23-2023 influenza, injectabl e, madin ellie canine kidney, preservative free Haylie Garza MD Work Phone: [place] 11-23-2023 influenza virus vaccine, unspecified formulation Shefali Carvajal DEPARTMENT HEAD.DATABASE TECHNICIAN Work Phone: [place] 12-19-2022 Influenza, injectabl e, Madin Ellie Canine Kidney, preservative free, quadrivalent Haylie Garza MD Work Phone: [place] 12-19-2022 influenza virus vaccine, unspecified formulation Shefali Carvajal DEPARTMENT HEAD.DATABASE TECHNICIAN Work Phone: [place] 10-21-2021 influenza, injectabl e, quadrivalent, contains preservative Shefali Carvajal DEPARTMENT HEAD.DATABASE TECHNICIAN Work Phone: [place] Work Phone: 10-21-2021 influenza virus vaccine, unspecified formulation Shefali Carvajal APRNMarshalDATABASE TECHNICIAN Work Phone: [place] 01-07-2021 COVID-19 vaccine, fu ll dose (MODERNA) Susu Athy PA-C Work Phone: [place] Work Phone: 10-06-2020 influenza, injectabl e, quadrivalent, contains preservative Susu Athy PA-C Work Phone: [place] Work Phone: 05-25-2020 COVID-19 vaccine, fu ll dose (MODERNA) Susu Athy PA-C Work Phone: [place] Work Phone: 04-27-2020 COVID-19 vaccine, fu ll dose (MODERNA) Susu Athy PA-C Work Phone: [place] Work Phone: 10-05-2019 influenza virus vaccine, unspecified formulation Susu Athy PA-C Work Phone: [place] Work Phone: 10-04-2019 influenza, injectabl e, quadrivalent, preservative free Susu Athy PA-C Work Phone: [place] Work Phone: 11-17-2018 influenza, injectabl e, quadrivalent, preservative free Susu Athy PA-C Work Phone: [place] Work Phone: 07-18-2018 tetanus toxoid, reduced diphtheria toxoid, and acellular pertussis vaccine, adsorbed Susu Athy PA-C Work Phone: [place] Work Phone: 11-05-2017 Influenza virus vaccine [facility] 11-05-2017 influenza, seasonal, injectable, preservative free Susu Athy PA-C Work Phone: [place] Work Phone: 09-21-2017 influenza, injectabl e, quadrivalent, preservative free Susu Athy PA-C Work Phone: [place] Work Phone: 12-27-2016 influenza, injectabl e, quadrivalent, preservative free Susu Athy PA-C Work Phone: [place] Work Phone: 10-06-2014 TD(adult) unspecifie d formulation Susu Athy PA-C Work Phone: [place] Work Phone: 09-08-2004 Meningococcal, MCV4, unspecified conjugate formulation(groups A, C, Y and W-135) Susu Athy PA-C Work Phone: [place] Work Phone: NEGATED: Highlighted row has not occurred!09-19-2021 hepatitis B vaccine, adult dosage Shefali Carvajal MARQUISE.DATABASE TECHNICIAN Work Phone: [place] Work Phone: Comment on above: Deferred: Postponed Payers Date Payer Category Payer Self-pay [id number] 2022 [place] [facility] BLUE [facility] [id number] 2022 Unknown [id number] 2018 Unknown JOHN JEFFERSON PPO [id number] 2018-Present [phone] [address] [place] [address] PPO [id number] 2018 Unknown [id number] Unknown [id number] Unknown [id number] Unknown [id number] Unknown [id number] Unknown [id number] Unknown [id number] Social History Date Type Detail Facility Start: 01-22-2012 End: 09-19-2021 Tobacco smoking status NHIS Never smoked tobacco [place] Start: 05-20-2021 End: 09-29-2024 Alcohol intake Current drinker of alcohol (finding) [place] Start: 07-02-2020 End: 02-02-2022 History SDOH Alcohol Frequency 1 [place] Start: 07-02-2020 History SDOH Alcohol Std Drinks 98 [place] Start: 12-06-2017 History SDOH Alcohol Comment Occasionally, but not while [place] Start: 07-02-2020 End: 02-02-2022 History SDOH Social Connections Phone 2 [place] Start: 07-02-2020 End: 02-02-2022 History SDOH Social Connections Living 3 [place] Start: 07-02-2020 History SDOH Stress 4 [facility] Start: 07-02-2020 End: 02-02-2022 History SDOH Financial 5 [place] Start: 07-02-2020 Education 17 [place] Start: 1985 Sex Assigned At Female [facility] Start: 05-10-2021 End: 10-21-2021 Exposure to SARS-CoV-2 (event) Not sure [place] Start: 06-14-2021 End: 06-24-2021 Exposure to SARS-CoV-2 (event) Unable to assess [place] Start: 01-22-2012 End: 09-19-2021 Tobacco use and exposure Smokeless tobacco non-user [place] Start: 02-02-2022 End: 07-12-2022 History of Social function [place] Start: 02-02-2022 End: 07-12-2022 Social connection and isolation panel [place] Do you belong to any clubs or organizations such as faith groups, unions, fraCCS Environmental or athletic groups, or school groups? No [place] Are you now , , , , never or living with a partner? [place] How often to you hav e a drink containing alcohol? Monthly or less [place] How many standard drinks containing alcohol do you have on a typical day? 1 or 2 [place] How often do you hav e 6 or more drinks on 1 occasion? Never [place] Start: 01-07-2012 How hard is it for y ou to pay for the very basics like food, housing, medical care, and heating Not hard at all [place] Do you feel stress - tense, restless, nervous, or anxious, or unable to sleep at night because your mind is troubled all the time - these days [OSQ] Only a little [place] (I/We) worried whejarett er (my/our) food would run out before (I/we) got money to buy more. Never true [place] Start: 04-20-2021 Gender identity Identifies as female gender (finding) [place] Start: 04-20-2021 Sexual orientation Heterosexual (miguel montoya) [place] Start: 01-21-2023 End: 01-21-2023 Tobacco smoking status NHIS Unknown if ever smoked [facility] Start: 08-03-2018 None [facility] Start: 09-11-2019 Non-smoker [facility] Do you feel stress - tense, restless, nervous, or anxious, or unable to sleep at night because your mind is troubled all the time - these days [OSQ] Rather much [place] Start: 05-16-2024 End: 05-23-2024 Sex Female (finding) [facility] NEGATED: Highlighted row Not [facility] Goals Date Patient Goal Desired Activity /State Mental Status Date Assessment Result Facility 05-23-2024 Cognitive function Voice/Name [facility] Work Phone: Clinical Notes 01-01-2019 to 10-01-2024 Patient InstructionsHung Rivero MD - 10/01/2024 5:20 PM EDTPatient InstructionsHung Rivero MD - 09/29/2024 8:11 AM Bridget Rincon APRN.[facility] - 06/14/2024 12:37 PM EDT Note Date & Type Note Facility 10-01-2024 Instructions Hung Rivero MD - 10/01/2024 5:39 PM EDT - Continue your prescribed antibiotic (Ceftin) for the ear infection. - A prescription for ondansetron disintegrating tablets (Zofran) has been sent to [facility] pharmacy--take one tablet every six hours as needed for nausea. - Use acetaminophen (Tylenol) as needed to reduce fever and relieve body aches. - If diarrhea occurs more than four to six times a day or you become concerned about dehydration, take loperamide (Imodium) as directed to slow your bowels. - Drink plenty of fluids--aim for at least two cups of water or broth within five minutes when you feel faint--to stay hydrated and support your blood pressure. - Include some salt in your fluids (for example, broth) to help maintain blood pressure. - If you feel dizzy or like you might pass out, sit or lie down immediately and rest until you feel better. - Begin with bland foods (such as Cheerios, toast, or crackers) and gradually advance your diet as your appetite returns. - Rest and sleep as much as needed to help your body recover from the viral illness. - Follow up with our office if your symptoms worsen, you re unable to stay hydrated, or you do not start to improve over the next few days. documented in this encounter [place] 10-01-2024 Note HNO ID: [id number] Author: HUNG RIVERO MD Service: ? Author Type: Physician Type: Progress Notes Filed: 10/01/2024 17:39 Note Text: I have communicated my name and active licensure. The patient's identity and physical location were verified at the time of this visit. Either the patient or their legal sales representative printing paper has been informed of the risks and benefits of -- and alternatives to -- treatment through a remote evaluation and consents to proceed with the evaluation remotely. Subjective Sasha Rachel is a 39 year old female. SUBJECTIVE: Sasha Rachel is a 39-year-old female presenting with acute onset of fever, chills, diaphoresis, dizziness, near-syncope, tinnitus, scotomas, nausea, emesis, and diarrhea. Sasha reports an acute onset of symptoms beginning yesterday, including fever, chills, diaphoresis, dizziness, near-syncope, tinnitus, scotomas, nausea, emesis, and diarrhea. She notes that the symptoms started before the fever, with dizziness, near-syncope, tinnitus, and scotomas. She also experienced a loss of appetite and mild nausea, followed by emesis. She reports multiple episodes of diarrhea. Sasha is currently being treated for an ear infection and is taking ceftin. She denies stopping the antibiotic and believes it may be helping to mitigate the severity of her symptoms. She denies current nausea but requests a prescription for Zofran as a precaution. She also reports myalgia, describing her body as aching badly and feeling as if she went to the gym. She notes that her fever seems to spike daily around 1600, followed by diaphoresis. She was able to eat Cheerios yesterday and something today, but continues to feel exhausted and never fully rested. PAST MEDICAL HISTORY Diagnosis Date Abnormal Pap smear of cervix 2004 Allergic rhinitis due to other allergen Depressive disorder, not elsewhere classified Fibromyalgia Food poisoning 2014 Irritable bowel syndrome Myalgia and myositis, unspecified Other chronic sinusitis Current Outpatient Medications Medication Sig ondansetron orally disintegrating (ZOFRAN ODT) 4 mg disintegrating tablet Take 1 tablet by mouth every 6 hours as needed for nausea/vomiting. cefUROXime (CEFTIN) 500 mg tablet Take 1 tablet by mouth two times a day for 7 days. hydrOXYzine HCl (ATARAX) 10 mg tablet Take 1-2 tablets by mouth three times a day as needed for anxiety. sertraline (ZOLOFT) 100 mg tablet Take 1 tablet by mouth once daily. Dose change, take 1 daily acetaminophen (TYLENOL) 325 mg tablet Take 650 mg by mouth every 6 hours as needed. omeprazole (PRILOSEC) 20 mg capsule Take 1 capsule by mouth daily before breakfast. albuterol HFA (PROVENTIL HFA, VENTOLIN HFA) 90 mcg/actuation inhaler Inhale 2 Puffs as instructed every 6 hours as needed for wheezing/shortness of breath. cholecalciferol (VITAMIN D3) 5,000 unit tab Take 1 tablet by mouth once daily. Magnesium 250 mg tab Take 2 tablets by mouth once daily. for anxiety / depression ibuprofen (MOTRIN) 200 mg tablet Take 4 tablets by mouth every 8 hours as needed for pain (headache). Take with food. albuterol HFA (PROAIR HFA) 90 mcg/actuation inhaler Inhale 2 Puffs as instructed every 6 hours as needed. No current facility-administered medications for this visit. Objective LMP 05/12/2024 (Within Days) Last 5 Encounter Wt Readings: Date: Wt: 09/29/2024 111.4 kg (245 lb 9.5 oz) 06/26/2024 114 kg (251 lb 5.2 oz) 06/14/2024 115.2 kg (253 lb 15.5 oz) 05/27/2024 113 kg (249 lb 1.9 oz) 05/21/2024 114.8 kg (253 lb) No waist measurement recorded Estimated body mass index is 37.34 kg/m? as calculated from the following: Height as of 09/29/24: 172.7 cm (5' 8). Weight as of 09/29/24: 111.4 kg (245 lb 9.5 oz). Last 5 Encounter BP Readings: Date: BP: 09/29/2024 130/64 06/26/2024 121/79 06/14/2024 112/76 05/27/2024 122/78 05/21/2024 124/70 GENERAL: alert and appropriate, in no distress, well-hydrated, well nourished, and happy, smiling, interactive HEAD: normocephalic, no abnormality or lesion noted EYES: no injection RESPIRATORY: breathing non-labored # Viral gastroenteritis (A08.4) # Near syncope (R55) - Acute viral gastroenteritis with associated near syncope episode; symptoms include fever, chills, diaphoresis, nausea, vomiting, anorexia, and diarrhea. - Symptoms not attributed to current antibiotic therapy for ear infection. - Supportive care recommended: maintain hydration, advance diet as tolerated, and use antipyretics (e.g., Tylenol) for fever management. - Prescribed ondansetron ODT, 20 tablets, every 6 hours PRN for nausea. - Advised use of Imodium if diarrhea frequency increases to prevent dehydration. - Educated on importance of rest, hydration, and gradual dietary advancement; instructed to sit or lie down immediately if feeling lightheaded to prevent injury. - Follow-up as needed. Visit was conducted via [email or web address] ([employer]) (more content not included)... [facility] 10-01-2024 History of Presen t illness Narrative I have communicated my name and active licensure. The patient's identity and physical location were verified at the time of this visit. Either the patient or their legal sales representative printing paper has been informed of the risks and benefits of -- and alternatives to -- treatment through a remote evaluation and consents to proceed with the evaluation remotely. Subjective Sasha Rachel is a 39 year old female. SUBJECTIVE: Sasha Rachel is a 39-year-old female presenting with acute onset of fever, chills, diaphoresis, dizziness, near-syncope, tinnitus, scotomas, nausea, emesis, and diarrhea. Sasha reports an acute onset of symptoms beginning yesterday, including fever, chills, diaphoresis, dizziness, near-syncope, tinnitus, scotomas, nausea, emesis, and diarrhea. She notes that the symptoms started before the fever, with dizziness, near-syncope, tinnitus, and scotomas. She also experienced a loss of appetite and mild nausea, followed by emesis. She reports multiple episodes of diarrhea. Sasha is currently being treated for an ear infection and is taking ceftin. She denies stopping the antibiotic and believes it may be helping to mitigate the severity of her symptoms. She denies current nausea but requests a prescription for Zofran as a precaution. She also reports myalgia, describing her body as aching badly and feeling as if she went to the gym. She notes that her fever seems to spike daily around 1600, followed by diaphoresis. She was able to eat Cheerios yesterday and something today, but continues to feel exhausted and never fully rested. PAST MEDICAL HISTORY Diagnosis Date Abnormal Pap smear of cervix 2004 Allergic rhinitis due to other allergen Depressive disorder, not elsewhere classified Fibromyalgia Food poisoning 2014 Irritable bowel syndrome Myalgia and myositis, unspecified Other chronic sinusitis Current Outpatient Medications Medication Sig ondansetron orally disintegrating (ZOFRAN ODT) 4 mg disintegrating tablet Take 1 tablet by mouth every 6 hours as needed for nausea/vomiting. cefUROXime (CEFTIN) 500 mg tablet Take 1 tablet by mouth two times a day for 7 days. hydrOXYzine HCl (ATARAX) 10 mg tablet Take 1-2 tablets by mouth three times a day as needed for anxiety. sertraline (ZOLOFT) 100 mg tablet Take 1 tablet by mouth once daily. Dose change, take 1 daily acetaminophen (TYLENOL) 325 mg tablet Take 650 mg by mouth every 6 hours as needed. omeprazole (PRILOSEC) 20 mg capsule Take 1 capsule by mouth daily before breakfast. albuterol HFA (PROVENTIL HFA, VENTOLIN HFA) 90 mcg/actuation inhaler Inhale 2 Puffs as instructed every 6 hours as needed for wheezing/shortness of breath. cholecalciferol (VITAMIN D3) 5,000 unit tab Take 1 tablet by mouth once daily. Magnesium 250 mg tab Take 2 tablets by mouth once daily. for anxiety / depression ibuprofen (MOTRIN) 200 mg tablet Take 4 tablets by mouth every 8 hours as needed for pain (headache). Take with food. albuterol HFA (PROAIR HFA) 90 mcg/actuation inhaler Inhale 2 Puffs as instructed every 6 hours as needed. No current facility-administered medications for this visit. Objective LMP 05/12/2024 (Within Days) Last 5 Encounter Wt Readings: Date: Wt: 09/29/2024 111.4 kg (245 lb 9.5 oz) 06/26/2024 114 kg (251 lb 5.2 oz) 06/14/2024 115.2 kg (253 lb 15.5 oz) 05/27/2024 113 kg (249 lb 1.9 oz) 05/21/2024 114.8 kg (253 lb) No waist measurement recorded Estimated body mass index is 37.34 kg/m as calculated from the following: Height as of 09/29/24: 172.7 cm (5' 8). Weight as of 09/29/24: 111.4 kg (245 lb 9.5 oz). Last 5 Encounter BP Readings: Date: BP: 09/29/2024 130/64 06/26/2024 121/79 06/14/2024 112/76 05/27/2024 122/78 05/21/2024 124/70 GENERAL: alert and appropriate, in no distress, well-hydrated, well nourished, and happy, smiling, interactive HEAD: normocephalic, no abnormality or lesion noted EYES: no injection RESPIRATORY: breathing non-labored # Viral gastroenteritis (A08.4) # Near syncope (R55) - Acute viral gastroenteritis with associated near syncope episode; symptoms include fever, chills, diaphoresis, nausea, vomiting, anorexia, and diarrhea. - Symptoms not attributed to current antibiotic therapy for ear infection. - Supportive care recommended: maintain hydration, advance diet as tolerated, and use antipyretics (e.g., Tylenol) for fever management. - Prescribed ondansetron ODT, 20 tablets, every 6 hours PRN for nausea. - Advised use of Imodium if diarrhea frequency increases to prevent dehydration. - Educated on importance of rest, hydration, and gradual dietary advancement; instructed to sit or lie down immediately if feeling lightheaded to prevent injury. - Follow-up as needed. Visit was conducted via [employer] documented in this encounter [place] 09-29-2024 Instructions Hung Rivero MD - 09/29/2024 8:53 AM EDT - Stop the Augmentin (amoxicillin/clavulanate) you were taking for your ear infection. - Begin the prescribed cefdinir for your bacterial sinusitis and ear pain; take each dose with food to ensure proper absorption. - Use your omeprazole prescription as directed to help manage your reflux symptoms; fill the prescription if you haven t yet. - A refill for hydroxyzine has been sent to your pharmacy--use it as needed for anxiety or panic-attack symptoms. - A refill for ondansetron (Zofran) has been sent so you have it available for nausea. - Your sertraline prescription has refills sent to continue your current regimen. - Lab orders for vitamin D, a metabolic panel, and a complete blood count are active for the next two months; you may walk in or schedule at your convenience. - Take acetaminophen (Tylenol) as needed for fever, chills, headaches, and body aches. - Sleep on your side rather than your back to help reduce your mild sleep apnea; ongoing weight loss will also improve sleep quality. - Continue your healthy diet and exercise habits (including the [employer] arsh and [employer]) to maintain your recent weight loss. - Send the annual-physical/insurance form back through [facility] so it can be completed for your records. - You are up to date on tetanus (good through 2028) and have been receiving your flu shot at the pharmacy this season. documented in this encounter [place] 09-29-2024 Note HNO ID: [id number] Author: HUNG RIVERO MD Service: ? Author Type: Physician Type: Progress Notes Filed: 10/01/2024 17:23 Note Text: Subjective Sasha Rachel is a 39 year old female. HPI Sasha Rachel is a 39-year-old female, with a history of anxiety, presenting for an annual physical exam and evaluation of persistent symptoms following treatment for an ear infection. Sasha reports persistent symptoms following treatment for an ear infection, including fatigue, myalgias, chills, and cephalalgia. She has been experiencing significant fatigue for approximately one week, which she attributes to a possible fever. She also reports myalgias and chills, although she has not recorded a fever. She has been experiencing cephalalgia, which she describes as a tight sensation. She was treated at [facility] with Augmentin, which she believes is causing gastrointestinal discomfort, including diarrhea. She has a history of taking amoxicillin without issues. She also reports right-sided otalgia, which has not improved with the current treatment. She denies sinus congestion or cough but reports right-sided facial pain and dentalgia. She also reports chest pain, which she initially thought was acid reflux and radiated to the right side of her neck. The chest pain has since resolved, but she now reports left-sided chest pain. She has a history of acid reflux and has a prescription for omeprazole, which she has not been taking regularly. She denies any changes in bowel movements. Sasha has been taking vitamin D supplements regularly and reports a weight loss of 10 pounds. She attributes her weight loss to using the [employer] arsh and [employer]. She also reports a history of mild sleep apnea, which she hopes will improve with weight loss. She reports getting approximately 6-7 hours of sleep per night, although her sleep is often interrupted. She is currently taking sertraline and hydroxyzine for anxiety and panic attacks, respectively. She also has a prescription for Zofran, which she would like to refill. S She denies any changes in family history. PAST MEDICAL HISTORY Diagnosis Date Abnormal Pap smear of cervix 2004 Allergic rhinitis due to other allergen Depressive disorder, not elsewhere classified Fibromyalgia Food poisoning 2014 Irritable bowel syndrome Myalgia and myositis, unspecified Other chronic sinusitis Current Outpatient Medications Medication Sig acetaminophen (TYLENOL) 325 mg tablet Take 650 mg by mouth every 6 hours as needed. omeprazole (PRILOSEC) 20 mg capsule Take 1 capsule by mouth daily before breakfast. albuterol HFA (PROVENTIL HFA, VENTOLIN HFA) 90 mcg/actuation inhaler Inhale 2 Puffs as instructed every 6 hours as needed for wheezing/shortness of breath. cholecalciferol (VITAMIN D3) 5,000 unit tab Take 1 tablet by mouth once daily. Magnesium 250 mg tab Take 2 tablets by mouth once daily. for anxiety / depression ibuprofen (MOTRIN) 200 mg tablet Take 4 tablets by mouth every 8 hours as needed for pain (headache). Take with food. albuterol HFA (PROAIR HFA) 90 mcg/actuation inhaler Inhale 2 Puffs as instructed every 6 hours as needed. cefUROXime (CEFTIN) 500 mg tablet Take 1 tablet by mouth two times a day for 7 days.--added today hydrOXYzine HCl (ATARAX) 10 mg tablet Take 1-2 tablets by mouth three times a day as needed for anxiety. ondansetron orally disintegrating (ZOFRAN ODT) 4 mg disintegrating tablet Take 1 tablet by mouth every 6 hours as needed for nausea/vomiting. sertraline (ZOLOFT) 100 mg tablet Take 1 tablet by mouth once daily. Dose change, take 1 daily No current facility-administered medications for this visit. ALLERGIES Allergen Reactions Mold Other: See Comments Seasonal Allergies Other: See Comments FAMILY HISTORY Problem Relation Age of Onset Breast Cancer Mother other (hypercholesterolemia) Mother diet controlled Obesity Mother other (hysterectomy) Mother Parkinson?s Disease Father Prostate Cancer Father Obesity Father other (overweight) Sister Heart Maternal Grandmother Obesity Maternal Grandmother Psychiatry Maternal Grandfather Obesity Maternal Grandfather Hypertension Paternal Grandmother Heart Paternal Grandmother Obesity Paternal Grandmother Heart Paternal Grandfather Obesity Paternal Grandfather Autism Son SOCIAL HISTORY[1] Review of Systems Objective BP 130/64 Pulse 78 Temp 36.3 ?C (97.4 ?F) (Temporal) Resp 12 Ht 172.7 cm (5' 8) Wt 111.4 kg (245 lb 9.5 oz) LMP 05/12/2024 (Within Days) SpO2 98% BMI 37.34 kg/m? Last 5 Encounter Wt Readings: Date: Wt: 09/29/2024 111.4 kg (245 lb 9.5 oz) 06/26/2024 114 kg (251 lb 5.2 oz) 06/14/2024 115.2 kg (253 lb 15.5 oz) 05/27/2024 113 kg (249 lb 1.9 oz) 05/21/2024 114.8 kg (253 lb) No waist measurement recorded Estimated body mass index is 37.34 kg/m? as calculated from the following: Height as (more content not included)... [facility] 09-29-2024 History of Presen t illness Narrative Asia Rachel is a 39 year old female. HPI PAST MEDICAL HISTORY Diagnosis Date Abnormal Pap smear of cervix 2004 Allergic rhinitis due to other allergen Depressive disorder, not elsewhere classified Fibromyalgia Food poisoning 2014 Irritable bowel syndrome Myalgia and myositis, unspecified Other chronic sinusitis Current Outpatient Medications Medication Sig acetaminophen (TYLENOL) 325 mg tablet Take 650 mg by mouth every 6 hours as needed. omeprazole (PRILOSEC) 20 mg capsule Take 1 capsule by mouth daily before breakfast. albuterol HFA (PROVENTIL HFA, VENTOLIN HFA) 90 mcg/actuation inhaler Inhale 2 Puffs as instructed every 6 hours as needed for wheezing/shortness of breath. cholecalciferol (VITAMIN D3) 5,000 unit tab Take 1 tablet by mouth once daily. Magnesium 250 mg tab Take 2 tablets by mouth once daily. for anxiety / depression ibuprofen (MOTRIN) 200 mg tablet Take 4 tablets by mouth every 8 hours as needed for pain (headache). Take with food. albuterol HFA (PROAIR HFA) 90 mcg/actuation inhaler Inhale 2 Puffs as instructed every 6 hours as needed. cefUROXime (CEFTIN) 500 mg tablet Take 1 tablet by mouth two times a day for 7 days.--added today hydrOXYzine HCl (ATARAX) 10 mg tablet Take 1-2 tablets by mouth three times a day as needed for anxiety. ondansetron orally disintegrating (ZOFRAN ODT) 4 mg disintegrating tablet Take 1 tablet by mouth every 6 hours as needed for nausea/vomiting. sertraline (ZOLOFT) 100 mg tablet Take 1 tablet by mouth once daily. Dose change, take 1 daily No current facility-administered medications for this visit. ALLERGIES Allergen Reactions Mold Other: See Comments Seasonal Allergies Other: See Comments FAMILY HISTORY Problem Relation Age of Onset Breast Cancer Mother other (hypercholesterolemia) Mother diet controlled Obesity Mother other (hysterectomy) Mother Parkinson s Disease Father Prostate Cancer Father Obesity Father other (overweight) Sister Heart Maternal Grandmother Obesity Maternal Grandmother Psychiatry Maternal Grandfather Obesity Maternal Grandfather Hypertension Paternal Grandmother Heart Paternal Grandmother Obesity Paternal Grandmother Heart Paternal Grandfather Obesity Paternal Grandfather Autism Son SOCIAL HISTORY[1] Review of Systems Objective BP 130/64 Pulse 78 Temp 36.3 C (97.4 F) (Temporal) Resp 12 Ht 172.7 cm (5' 8) Wt 111.4 kg (245 lb 9.5 oz) LMP 05/12/2024 (Within Days) SpO2 98% BMI 37.34 kg/m Last 5 Encounter Wt Readings: Date: Wt: 09/29/2024 111.4 kg (245 lb 9.5 oz) 06/26/2024 114 kg (251 lb 5.2 oz) 06/14/2024 115.2 kg (253 lb 15.5 oz) 05/27/2024 113 kg (249 lb 1.9 oz) 05/21/2024 114.8 kg (253 lb) No waist measurement recorded Estimated body mass index is 37.34 kg/m as calculated from the following: Height as of this encounter: 172.7 cm (5' 8). Weight as of this encounter: 111.4 kg (245 lb 9.5 oz). Last 5 Encounter BP Readings: Date: BP: 09/29/2024 130/64 06/26/2024 121/79 06/14/2024 112/76 05/27/2024 122/78 05/21/2024 124/70 Physical Exam Vitals reviewed. Constitutional: Appearance: Normal appearance. She is well-developed. HENT: Head: Normocephalic and atraumatic. Right Ear: Tympanic membrane, ear canal and external ear normal. Left Ear: Tympanic membrane, ear canal and external ear normal. Nose: Nose normal. Mouth/Throat: Mouth: Mucous membranes are moist. Eyes: Conjunctiva/sclera: Conjunctivae normal. Pupils: Pupils are equal, round, and reactive to light. Neck: Thyroid: No thyromegaly. Vascular: No carotid bruit. Cardiovascular: Rate and Rhythm: Normal rate and regular rhythm. Pulses: Normal pulses. Heart sounds: Normal heart sounds. No murmur heard. No friction rub. No gallop. Pulmonary: Effort: Pulmonary effort is normal. Breath sounds: Normal breath sounds. Abdominal: General: Bowel sounds are normal. There is no distension. Palpations: Abdomen is soft. There is no mass. Tenderness: There is no abdominal tenderness. Musculoskeletal: General: No deformity. Normal range of motion. Right lower leg: No edema. Left lower leg: No edema. Lymphadenopathy: Cervical: No cervical adenopathy. Skin: General: Skin is warm and dry. Coloration: Skin is not jaundiced or pale. Findings: No rash. Neurological: General: No focal deficit present. Mental Status: She is alert and oriented to person, place, and time. Cranial Nerves: No cranial nerve deficit. Sensory: No sensory deficit. Motor: No abnormal muscle tone. Coordination: Coordination normal. Deep Tendon Reflexes: Reflexes normal. Psychiatric: Attention and Perception: Attention and perception normal. Mood and Affect: Mood and affect normal. Speech: Speech normal. Behavior: Behavior normal. Thought Content: Thought content normal. Cognition and Memory: Cognition and memory normal. Judgment: Judgment normal. Labs ordered but not yet done. Last labs: Latest Ref Rng 09/07/2023 04/03/2024 WBC 3.70 - 11.00 k/uL 10.09 10.94 RBC 3.90 - 5.20 m/uL 4.83 4.28 Hemoglobin 11.5 - 15.5 g/dL 14.0 13.0 Hematocrit 36.0 - 46.0 % 44.6 39.3 MCV 80.0 - 100.0 fL 92.3 91.8 MCH 26.0 - 34.0 pg 29.0 30.4 MCHC 30.5 - 36.0 g/dL 31.4 33.1 RDW-CV 11.5 - 15.0 % 14.8 14.5 Platelet Count 150 - 400 k/uL 316 261 MPV 9.0 - 12.7 fL 10.5 11.4 Neut% % 64.1 Abs Neut (ANC) 1.45 - 7.50 k/uL 6.47 Lymph% % 24.1 Abs Lymph 1.00 - 4.00 k/uL 2.43 Searcy% % 7.7 Abs [place] <0.87 k/uL 0.78 Eosin% % 3.5 Abs Eosin <0.46 k/uL 0.35 Baso% % 0.3 Abs Baso <0.11 k/uL 0.03 Immature Gran % % 0.3 IMMATURE GRANS (ABS) <0.10 k/uL 0.03 NRBC /100 WBC 0.0 Absolute nRBC <0.01 k/uL <0.01 <0.01 DTYPE Auto Protein, Total 6.3 - 8.0 g/dL 7.1 6.8 Albumin 3.9 - 4.9 g/dL 4.2 4.0 Calcium 8.5 - 10.2 mg/dL 9.3 9.2 Bilirubin, Total 0.2 - 1.3 mg/dL 0.2 0.2 Alkaline Phosphatase 34 - 123 U/L 82 69 AST 13 - 35 U/L 21 24 ALT 7 - 38 U/L 20 27 Glucose 74 - 99 mg/dL 87 72 (L) BUN 7 - 21 mg/dL 16 16 Creatinine 0.58 - 0.96 mg/dL 0.73 0.73 Sodium 136 - 144 mmol/L 135 (L) 137 Potassium 3.7 - 5.1 mmol/L 4.7 4.1 Chloride 98 - 107 mmol/L 102 105 CO2 22 - 30 mmol/L 22 23 Anion Gap 8 - 15 mmol/L 11 9 eGFR >=60 mL/min/1.73m 108 107 Cholesterol, Total <200 mg/dL 273 (H) Triglyceride <150 mg/dL 142 HDL Cholesterol >39 mg/dL 72 Non HDL Cholesterol <130 mg/dL 201 (H) Fasting Time hrs 12 VLDL Cholesterol <30 mg/dL 28 TC:HDL Ratio <5.10 3.79 LDL Cholesterol, Calculated <100 mg/dL 173 (H) LDL:HDL Ratio <2.54 2.40 Vitamin D 25 Hydroxy 31.0 - 80.0 ng/mL 19.3 (L) 27.8 (L) TSH 0.270 - 4.200 mIU/L 3.450 Free T4 0.9 - 1.7 ng/dL 0.9 Free T3 2.3 - 4.1 pg/mL 2.8 Vitamin B12 232 - 1,245 pg/mL 715 Vitamin B6, Plasma 20.0 - 125.0 nmol/L 31.7 Legend: (L) Low (H) High Hung Rivero MD Recording using [employer] software for draft documentation of the visit was discussed with the patient/authorized sales representative printing paper; all questions welcomed and answered. Patient/authorized sales representative printing paper agreed to proceed [1] Social History Tobacco Use Smoking status: Never Smokeless tobacco: Never Vaping Use Vaping status: Never Used Substance Use Topics Alcohol use: Yes Comment: Occasionally, but not while Drug use: No documented in this encounter [place] 09-02-2024 Telephone encounter Note Patient has been identified by name and date of : yes Patient phones for refill(s): Requested Prescriptions Pending Prescriptions Disp Refills hydrOXYzine HCl (ATARAX) 10 mg tablet 90 tablet 2 Sig: Take 1-2 tablets by mouth three times a day as needed for anxiety. Date of last office visit in primary care: 06/26/2024 Date of next office visit in primary care: 09/29/2024 Please advise. Thank you. Emily Barbosa MA. [place] 09-02-2024 Miscellaneous Notes Patient has been identified by name and date of : yes Patient phones for refill(s): Requested Prescriptions Pending Prescriptions Disp Refills hydrOXYzine HCl (ATARAX) 10 mg tablet 90 tablet 2 Sig: Take 1-2 tablets by mouth three times a day as needed for anxiety. Date of last office visit in primary care: 06/26/2024 Date of next office visit in primary care: 09/29/2024 Please advise. Thank you. Emily Barbosa MA. documented in this encounter [place] 06-26-2024 Note HNO ID: [id number] Author: SHEFALI CARVAJAL APRN.DATABASE TECHNICIAN Service: ? Author Type: Nurse Specialist Type: Progress Notes Filed: 06/26/2024 12:39 Note Text: SUBJECTIVE: There are no preventive care reminders to display for this patient. HPI Sasha Rachel is a 39 year old female. PMH significant for ACTIVE PROBLEM LIST Fibromyalgia Anxiety and Depression Anxiety Numbness and Tingling of Lower Extremity Class 2 Obesity With Body Mass Index (Bmi) of 38.0 to 38.9 in Adult Sasha is a 39-year-old female presenting with acute onset heartburn. Heartburn: - Onset during a recent vacation, following a strep throat and ear infection. - Describes pain as nagging and annoying, with episodes of increased severity. - Pain localized to the epigastric region, radiating to the throat. - Aggravated by forward bending and lying down; worse at night. - Denies regurgitation, nausea, emesis, or abdominal pain. - Taking Pepcid and Tums with minimal relief. - Avoiding acidic foods and drinks; following a bland diet. - Consumes minimal caffeine; denies alcohol and tobacco use. - Friend recommended omeprazole, but has not tried it yet. - Recent abnormal uterine bleeding s/p polypectomy 05/23/2024. Heartburn: present most of the time Reflux: not at night Abdominal pain: no Nausea: no Vomiting: no Diarrhea: after antibiotic Constipation: no BRBPR: no Black tarry: no ROS Constitutional: (+) sleep disturbance Ears/Nose/Mouth/Throat: (+) sore throat Gastrointestinal: (+) heartburn, (+) diarrhea, (-) nausea, (-) vomiting, (-) abdominal pain, (-) bloody stool, (-) melena, (-) constipation Objective BP 121/79 Pulse 101 Resp 16 Wt 114 kg (251 lb 5.2 oz) LMP 05/12/2024 (Within Days) SpO2 97% BMI 38.21 kg/m? Physical Exam Vitals and nursing note reviewed. Constitutional: Appearance: Normal appearance. HENT: Head: Normocephalic and atraumatic. Right Ear: Ear canal normal. Left Ear: Tympanic membrane and ear canal normal. Eyes: Conjunctiva/sclera: Conjunctivae normal. Neck: Thyroid: No thyromegaly or thyroid tenderness. Vascular: Normal carotid pulses. No JVD. Cardiovascular: Rate and Rhythm: Normal rate and regular rhythm. Pulses: Carotid pulses are 2+ on the right side and 2+ on the left side. Radial pulses are 2+ on the right side and 2+ on the left side. Heart sounds: Normal heart sounds. Pulmonary: Effort: Pulmonary effort is normal. Breath sounds: Normal breath sounds. Abdominal: General: Bowel sounds are normal. Palpations: Abdomen is soft. Musculoskeletal: Right lower leg: No edema. Left lower leg: No edema. Skin: General: Skin is warm and dry. Neurological: General: No focal deficit present. Mental Status: She is alert and oriented to person, place, and time. ALLERGIES Allergen Reactions Mold Other: See Comments Seasonal Allergies Other: See Comments Medications acetaminophen (TYLENOL) 325 mg tablet Take 650 mg by mouth every 6 hours as needed. buPROPion XL (WELLBUTRIN XL) 150 mg 24 hr tablet Take 1 tablet by mouth once daily. albuterol HFA (PROVENTIL HFA, VENTOLIN HFA) 90 mcg/actuation inhaler Inhale 2 Puffs as instructed every 6 hours as needed for wheezing/shortness of breath. sertraline (ZOLOFT) 100 mg tablet Take 1 tablet by mouth once daily. Dose change, take 1 daily sod bicarb-sod chlor-neti pot (NEILMED NASAFLO) pkdv 1 Each by sinus irrigation route two times a day as needed (for sinus congestion and drainage). hydrOXYzine HCl (ATARAX) 10 mg tablet Take 1-2 tablets by mouth three times a day as needed for anxiety. ondansetron orally disintegrating (ZOFRAN ODT) 4 mg disintegrating tablet Take 1 tablet by mouth every 6 hours as needed for nausea/vomiting. cholecalciferol (VITAMIN D3) 5,000 unit tab Take 1 tablet by mouth once daily. Magnesium 250 mg tab Take 2 tablets by mouth once daily. for anxiety / depression ibuprofen (MOTRIN) 200 mg tablet Take 4 tablets by mouth every 8 hours as needed for pain (headache). Take with food. albuterol HFA (PROAIR HFA) 90 mcg/actuation inhaler Inhale 2 Puffs as instructed every 6 hours as needed. omeprazole (PRILOSEC) 20 mg capsule Take 1 capsule by mouth daily before breakfast. sucralfate (CARAFATE) 1 gram tablet Take 1 tablet by mouth before meals and at bedtime for 14 days. norethindrone (AYGESTIN) 5 mg tablet Take 1 tablet by mouth as directed. 1 tablet 3 times daily until bleeding stops then twice daily for 2 days then 1 tablet daily until surgery (Patient not taking: Reported on 06/26/2024) PAST MEDICAL HISTORY Diagnosis Date Abnormal Pap smear of cervix 2004 Allergic rhinitis due to other allergen Depressive disorder, not elsewhere classified Fibromyalgia Food poisoning 2015 Irritable bowel syndrome Myalgia and myositis, unspecified Other chronic sinusitis Social History Tobacco Use Smoking status: Never Smokeless tobacco: Never Vaping U (more content not included)... [facility] 06-14-2024 Note HNO ID: [id number] Author: BRIDGET REYES APRN.HERSON Service: ? Author Type: Nurse Practitioner Type: Progress Notes Filed: 06/14/2024 12:43 Note Text: [facility] Subjective Sasha Virginie is a 39 year old female. Patient presents with: Earache: Entered by patient Ear Pain: Left ear pain x 1 day Patient came in with complaints of sore throat for about a week. Patient says her left ear started hurting today. Patient says it ear pain is getting worse. Patient denies any cough shortness of breath or other symptoms. The history is provided by the patient. No speech and language tutor was used. Ear Pain Associated symptoms include a sore throat. Review of Systems Constitutional: Negative. HENT: Positive for ear pain and sore throat. Eyes: Negative. Respiratory: Negative. Objective BP 112/76 Pulse 82 Temp 36.8 ?C (98.2 ?F) (Tympanic) Resp 18 Wt 115.2 kg (253 lb 15.5 oz) LMP 05/12/2024 (Within Days) SpO2 98% BMI 38.62 kg/m? Physical Exam Constitutional: Appearance: Normal appearance. HENT: Right Ear: Tympanic membrane, ear canal and external ear normal. Left Ear: Tympanic membrane is erythematous and bulging. Nose: Nose normal. Mouth/Throat: Mouth: Mucous membranes are moist. Pharynx: Oropharynx is clear. Eyes: Pupils: Pupils are equal, round, and reactive to light. Cardiovascular: Rate and Rhythm: Normal rate and regular rhythm. Heart sounds: Normal heart sounds. Pulmonary: Effort: Pulmonary effort is normal. Breath sounds: Normal breath sounds. Neurological: Mental Status: She is alert. PAST MEDICAL HISTORY Diagnosis Date Abnormal Pap smear of cervix 2004 Allergic rhinitis due to other allergen Depressive disorder, not elsewhere classified Fibromyalgia Food poisoning 2014 Irritable bowel syndrome Myalgia and myositis, unspecified Other chronic sinusitis PAST SURGICAL HISTORY Procedure Laterality Date DANDC, DIAG AND/OR THERAPEUTIC 05/23/2024 Hysteroscopy DANDC, polypectomy, Lilettta IUD insertion HYSTEROSCOPY BX ENDOMETRIUMAND/POLYPC W/WO DANDC 09/18/2019 hysteroscopy DANDC for AUP TONSILLECTOMY AND ADENOIDECTOMY AGE 12/> 1996 ALLERGIES Mold and Seasonal Allergies MEDICATIONS amoxicillin (AMOXIL) 875 mg tablet Take 1 tablet by mouth two times a day for 10 days. buPROPion XL (WELLBUTRIN XL) 150 mg 24 hr tablet Take 1 tablet by mouth once daily. norethindrone (AYGESTIN) 5 mg tablet Take 1 tablet by mouth as directed. 1 tablet 3 times daily until bleeding stops then twice daily for 2 days then 1 tablet daily until surgery albuterol HFA (PROVENTIL HFA, VENTOLIN HFA) 90 mcg/actuation inhaler Inhale 2 Puffs as instructed every 6 hours as needed for wheezing/shortness of breath. Gtmtihjkfxrgvna-Wpmshfodn-HY (BROMFED DM) 2-30-10 mg/5 mL syrup Take 5 mL by mouth four times a day as needed. sertraline (ZOLOFT) 100 mg tablet Take 1 tablet by mouth once daily. Dose change, take 1 daily benzonatate (TESSALON PERLE) 100 mg capsule Take 1-2 capsules by mouth three times a day as needed. sod bicarb-sod chlor-neti pot (NEILMED NASAFLO) pkdv 1 Each by sinus irrigation route two times a day as needed (for sinus congestion and drainage). hydrOXYzine HCl (ATARAX) 10 mg tablet Take 1-2 tablets by mouth three times a day as needed for anxiety. ondansetron orally disintegrating (ZOFRAN ODT) 4 mg disintegrating tablet Take 1 tablet by mouth every 6 hours as needed for nausea/vomiting. cholecalciferol (VITAMIN D3) 5,000 unit tab Take 1 tablet by mouth once daily. Magnesium 250 mg tab Take 2 tablets by mouth once daily. for anxiety / depression ibuprofen (MOTRIN) 200 mg tablet Take 4 tablets by mouth every 8 hours as needed for pain (headache). Take with food. albuterol HFA (PROAIR HFA) 90 mcg/actuation inhaler Inhale 2 Puffs as instructed every 6 hours as needed. FAMILY HISTORY Problem Relation Age of Onset Breast Cancer Mother other (hypercholesterolemia) Mother diet controlled Obesity Mother other (hysterectomy) Mother Parkinson?s Disease Father Prostate Cancer Father Obesity Father other (overweight) Sister Heart Maternal Grandmother Obesity Maternal Grandmother Psychiatry Maternal Grandfather Obesity Maternal Grandfather Hypertension Paternal Grandmother Heart Paternal Grandmother Obesity Paternal Grandmother Heart Paternal Grandfather Obesity Paternal Grandfather Autism Son Social History Tobacco Use Smoking status: Never Smokeless tobacco: Never Vaping Use Vaping status: Never Used Substance Use Topics Alcohol use: Yes Comment: Occasionally, but not while Drug use: No {ASSESSMENT/PLAN: 1. Sore throat - ICD9: 462, ICD10: J02.9 (primary diagnosis) - - Discussed supportive care treatment with fluids, rest and analgesia. 2. Acute otitis media, left - ICD9: 382.9, ICD10: H66.92 - Will begin treatment with as per antibiotic as written, see orders - A (more content not included)... [facility] 06-14-2024 History of Presen t illness Narrative [facility] Subjective Sasha Rachel is a 39 year old female. Patient presents with: Earache: Entered by patient Ear Pain: Left ear pain x 1 day Patient came in with complaints of sore throat for about a week. Patient says her left ear started hurting today. Patient says it ear pain is getting worse. Patient denies any cough shortness of breath or other symptoms. The history is provided by the patient. No speech and language tutor was used. Ear Pain Associated symptoms include a sore throat. Review of Systems Constitutional: Negative. HENT: Positive for ear pain and sore throat. Eyes: Negative. Respiratory: Negative. Objective BP 112/76 Pulse 82 Temp 36.8 C (98.2 F) (Tympanic) Resp 18 Wt 115.2 kg (253 lb 15.5 oz) LMP 05/12/2024 (Within Days) SpO2 98% BMI 38.62 kg/m Physical Exam Constitutional: Appearance: Normal appearance. HENT: Right Ear: Tympanic membrane, ear canal and external ear normal. Left Ear: Tympanic membrane is erythematous and bulging. Nose: Nose normal. Mouth/Throat: Mouth: Mucous membranes are moist. Pharynx: Oropharynx is clear. Eyes: Pupils: Pupils are equal, round, and reactive to light. Cardiovascular: Rate and Rhythm: Normal rate and regular rhythm. Heart sounds: Normal heart sounds. Pulmonary: Effort: Pulmonary effort is normal. Breath sounds: Normal breath sounds. Neurological: Mental Status: She is alert. PAST MEDICAL HISTORY Diagnosis Date Abnormal Pap smear of cervix 2004 Allergic rhinitis due to other allergen Depressive disorder, not elsewhere classified Fibromyalgia Food poisoning 2014 Irritable bowel syndrome Myalgia and myositis, unspecified Other chronic sinusitis PAST SURGICAL HISTORY Procedure Laterality Date D&C, DIAG AND/OR THERAPEUTIC 05/23/2024 Hysteroscopy D&C, polypectomy, Lilettta IUD insertion HYSTEROSCOPY BX ENDOMETRIUM&/POLYPC W/WO D&C 09/18/2019 hysteroscopy D&C for AUP TONSILLECTOMY & ADENOIDECTOMY AGE 12/1996 ALLERGIES Mold and Seasonal Allergies MEDICATIONS amoxicillin (AMOXIL) 875 mg tablet Take 1 tablet by mouth two times a day for 10 days. buPROPion XL (WELLBUTRIN XL) 150 mg 24 hr tablet Take 1 tablet by mouth once daily. norethindrone (AYGESTIN) 5 mg tablet Take 1 tablet by mouth as directed. 1 tablet 3 times daily until bleeding stops then twice daily for 2 days then 1 tablet daily until surgery albuterol HFA (PROVENTIL HFA, VENTOLIN HFA) 90 mcg/actuation inhaler Inhale 2 Puffs as instructed every 6 hours as needed for wheezing/shortness of breath. Loyuowydlgkkgjf-Hrwexrkrk-GT (BROMFED DM) 2-30-10 mg/5 mL syrup Take 5 mL by mouth four times a day as needed. sertraline (ZOLOFT) 100 mg tablet Take 1 tablet by mouth once daily. Dose change, take 1 daily benzonatate (TESSALON PERLE) 100 mg capsule Take 1-2 capsules by mouth three times a day as needed. sod bicarb-sod chlor-neti pot (NEILMED NASAFLO) pkdv 1 Each by sinus irrigation route two times a day as needed (for sinus congestion and drainage). hydrOXYzine HCl (ATARAX) 10 mg tablet Take 1-2 tablets by mouth three times a day as needed for anxiety. ondansetron orally disintegrating (ZOFRAN ODT) 4 mg disintegrating tablet Take 1 tablet by mouth every 6 hours as needed for nausea/vomiting. cholecalciferol (VITAMIN D3) 5,000 unit tab Take 1 tablet by mouth once daily. Magnesium 250 mg tab Take 2 tablets by mouth once daily. for anxiety / depression ibuprofen (MOTRIN) 200 mg tablet Take 4 tablets by mouth every 8 hours as needed for pain (headache). Take with food. albuterol HFA (PROAIR HFA) 90 mcg/actuation inhaler Inhale 2 Puffs as instructed every 6 hours as needed. FAMILY HISTORY Problem Relation Age of Onset Breast Cancer Mother other (hypercholesterolemia) Mother diet controlled Obesity Mother other (hysterectomy) Mother Parkinson s Disease Father Prostate Cancer Father Obesity Father other (overweight) Sister Heart Maternal Grandmother Obesity Maternal Grandmother Psychiatry Maternal Grandfather Obesity Maternal Grandfather Hypertension Paternal Grandmother Heart Paternal Grandmother Obesity Paternal Grandmother Heart Paternal Grandfather Obesity Paternal Grandfather Autism Son Social History Tobacco Use Smoking status: Never Smokeless tobacco: Never Vaping Use Vaping status: Never Used Substance Use Topics Alcohol use: Yes Comment: Occasionally, but not while Drug use: No {ASSESSMENT/PLAN: 1. Sore throat - ICD9: 462, ICD10: J02.9 (primary diagnosis) - - Discussed supportive care treatment with fluids, rest and analgesia. 2. Acute otitis media, left - ICD9: 382.9, ICD10: H66.92 - Will begin treatment with as per antibiotic as written, see orders - AMOXICILLIN 875 MG TABLET Bridget Reyes APRN.AIR DEFENCE OFFICER MDM Procedures documented in this encounter [place] 05-27-2024 Telephone encounter Note Patient notified. Haylie Davis RN [place] 05-27-2024 Miscellaneous Notes Patient notified. Haylie Davis RN Ok to stop aygestin. Bleeding should slowly taper. Patient had a D&C, polypectomy, and Liletta IUD inserted on 05/23. Asking if she needs to continue taking the Aygestin. Advised that DM d/c medication post surgery. She is having bleeding again that began on Sunday. Moderate menstrual like flow. Changing her pad every 2-3 hours, not saturated. Cramping began within the last 48 hours. Advised she is likely having a menses. Her bleeding nearly stopped shortly after her surgery. Recommended patient call with heavy bleeding or severe cramping. Please advise. Haylie Davis RN documented in this encounter [place] 05-27-2024 Telephone encounter Note Ok to stop aygestin. Bleeding should slowly taper. [place] Work Phone: 05-27-2024 Telephone encounter Note Patient had a D&C, polypectomy, and Liletta IUD inserted on 05/23. Asking if she needs to continue taking the Aygestin. Advised that DM d/c medication post surgery. She is having bleeding again that began on Sunday. Moderate menstrual like flow. Changing her pad every 2-3 hours, not saturated. Cramping began within the last 48 hours. Advised she is likely having a menses. Her bleeding nearly stopped shortly after her surgery. Recommended patient call with heavy bleeding or severe cramping. Please advise. Haylie Davis RN [place] 05-27-2024 Note HNO ID: [id number] Author: HUNG RIVERO MD Service: ? Author Type: Physician Type: Progress Notes Filed: 06/17/2024 20:02 Note Text: This note was created using [employer]. Subjective Sasha Rachel is a 39 year old female. Patient presents with: Recheck: 4 week numbness, had sleep test, xrays Sasha is a 39-year-old female with a history of anxiety and depression, presenting for follow-up after a recent polypectomy and IUD insertion, and to discuss resuming Wellbutrin. Sasha recently underwent a polypectomy last Sunday after experiencing significant bleeding, which led to an ER visit where she was found to have a medium to large-sized polyp. During the procedure, an IUD was inserted to manage hormonal fluctuations. Since the IUD insertion, she reports feeling really depressed and anxious, which she attributes to the IUD's side effects. She expresses a desire to resume Wellbutrin, which she had previously discontinued, in addition to her current Zoloft regimen. She inquires about the safety of combining Wellbutrin with Zoloft and whether she should increase her Zoloft dosage. She reports a decrease in back pain and numbness, which she believes were interconnected with the polyp. She has not been on her feet much lately and has not noticed any significant back pain. She mentions that her recent lumbar x-ray showed mild progressive upper lumbar disc disease, with changes compared to a 2019 x-ray. She also reports fatigue and a lack of appetite, which she attributes to her recent medical issues. She is trying to build her iron levels back up and asks about starting an iron supplement. She has been taking vitamin D supplements and Flonase for allergies. She denies any swelling. PAST MEDICAL HISTORY Diagnosis Date Abnormal Pap smear of cervix 2004 Allergic rhinitis due to other allergen Depressive disorder, not elsewhere classified Fibromyalgia Food poisoning 2014 Irritable bowel syndrome Myalgia and myositis, unspecified Other chronic sinusitis Current Outpatient Medications Medication Sig albuterol HFA (PROVENTIL HFA, VENTOLIN HFA) 90 mcg/actuation inhaler Inhale 2 Puffs as instructed every 6 hours as needed for wheezing/shortness of breath. Ekzmorsytahlqnh-Izqqqceho-EW (BROMFED DM) 2-30-10 mg/5 mL syrup Take 5 mL by mouth four times a day as needed. sertraline (ZOLOFT) 100 mg tablet Take 1 tablet by mouth once daily. Dose change, take 1 daily benzonatate (TESSALON PERLE) 100 mg capsule Take 1-2 capsules by mouth three times a day as needed. sod bicarb-sod chlor-neti pot (NEILMED NASAFLO) pkdv 1 Each by sinus irrigation route two times a day as needed (for sinus congestion and drainage). hydrOXYzine HCl (ATARAX) 10 mg tablet Take 1-2 tablets by mouth three times a day as needed for anxiety. ondansetron orally disintegrating (ZOFRAN ODT) 4 mg disintegrating tablet Take 1 tablet by mouth every 6 hours as needed for nausea/vomiting. cholecalciferol (VITAMIN D3) 5,000 unit tab Take 1 tablet by mouth once daily. Magnesium 250 mg tab Take 2 tablets by mouth once daily. for anxiety / depression ibuprofen (MOTRIN) 200 mg tablet Take 4 tablets by mouth every 8 hours as needed for pain (headache). Take with food. albuterol HFA (PROAIR HFA) 90 mcg/actuation inhaler Inhale 2 Puffs as instructed every 6 hours as needed. amoxicillin (AMOXIL) 875 mg tablet Take 1 tablet by mouth two times a day for 10 days. buPROPion XL (WELLBUTRIN XL) 150 mg 24 hr tablet Take 1 tablet by mouth once daily. norethindrone (AYGESTIN) 5 mg tablet Take 1 tablet by mouth as directed. 1 tablet 3 times daily until bleeding stops then twice daily for 2 days then 1 tablet daily until surgery No current facility-administered medications for this visit. Review of Systems Objective BP 122/78 (BP Position: Sitting) Pulse 83 Resp 16 Wt 113 kg (249 lb 1.9 oz) LMP 05/12/2024 (Within Days) SpO2 98% BMI 37.88 kg/m? Physical Exam Constitutional: Appearance: Normal appearance. HENT: Head: Normocephalic. Eyes: Conjunctiva/sclera: Conjunctivae normal. Cardiovascular: Rate and Rhythm: Normal rate and regular rhythm. Heart sounds: Normal heart sounds. Pulmonary: Effort: Pulmonary effort is normal. Breath sounds: Normal breath sounds. Musculoskeletal: Right lower leg: No edema. Left lower leg: No edema. Skin: General: Skin is warm and dry. Neurological: General: No focal deficit present. Mental Status: She is alert and oriented to person, place, and time. Psychiatric: Mood and Affect: Mood normal. Behavior: Behavior normal. Thought Content: Thought content normal. Judgment: Judgment normal. Assessment and Plan # Anxiety and depression (F41.9) - Recent onset of depressive and anxious symptoms following IUD insertion. - Resumed Wellbutrin 150 mg daily in addition to current Zoloft regimen. - Discussed potential side effects of IUD and be (more content not included)... [facility] 05-27-2024 History of Presen t illness Narrative This note was created using [employer]. Subjective Sasha Rachel is a 39 year old female. Patient presents with: Recheck: 4 week numbness, had sleep test, xrays Sasha is a 39-year-old female with a history of anxiety and depression, presenting for follow-up after a recent polypectomy and IUD insertion, and to discuss resuming Wellbutrin. Sasha recently underwent a polypectomy last Sunday after experiencing significant bleeding, which led to an ER visit where she was found to have a medium to large-sized polyp. During the procedure, an IUD was inserted to manage hormonal fluctuations. Since the IUD insertion, she reports feeling really depressed and anxious, which she attributes to the IUD's side effects. She expresses a desire to resume Wellbutrin, which she had previously discontinued, in addition to her current Zoloft regimen. She inquires about the safety of combining Wellbutrin with Zoloft and whether she should increase her Zoloft dosage. She reports a decrease in back pain and numbness, which she believes were interconnected with the polyp. She has not been on her feet much lately and has not noticed any significant back pain. She mentions that her recent lumbar x-ray showed mild progressive upper lumbar disc disease, with changes compared to a 2019 x-ray. She also reports fatigue and a lack of appetite, which she attributes to her recent medical issues. She is trying to build her iron levels back up and asks about starting an iron supplement. She has been taking vitamin D supplements and Flonase for allergies. She denies any swelling. PAST MEDICAL HISTORY Diagnosis Date Abnormal Pap smear of cervix 2004 Allergic rhinitis due to other allergen Depressive disorder, not elsewhere classified Fibromyalgia Food poisoning 2014 Irritable bowel syndrome Myalgia and myositis, unspecified Other chronic sinusitis Current Outpatient Medications Medication Sig albuterol HFA (PROVENTIL HFA, VENTOLIN HFA) 90 mcg/actuation inhaler Inhale 2 Puffs as instructed every 6 hours as needed for wheezing/shortness of breath. Tqhwkazbwrcdvth-Svcesnneb-MV (BROMFED DM) 2-30-10 mg/5 mL syrup Take 5 mL by mouth four times a day as needed. sertraline (ZOLOFT) 100 mg tablet Take 1 tablet by mouth once daily. Dose change, take 1 daily benzonatate (TESSALON PERLE) 100 mg capsule Take 1-2 capsules by mouth three times a day as needed. sod bicarb-sod chlor-neti pot (NEILMED NASAFLO) pkdv 1 Each by sinus irrigation route two times a day as needed (for sinus congestion and drainage). hydrOXYzine HCl (ATARAX) 10 mg tablet Take 1-2 tablets by mouth three times a day as needed for anxiety. ondansetron orally disintegrating (ZOFRAN ODT) 4 mg disintegrating tablet Take 1 tablet by mouth every 6 hours as needed for nausea/vomiting. cholecalciferol (VITAMIN D3) 5,000 unit tab Take 1 tablet by mouth once daily. Magnesium 250 mg tab Take 2 tablets by mouth once daily. for anxiety / depression ibuprofen (MOTRIN) 200 mg tablet Take 4 tablets by mouth every 8 hours as needed for pain (headache). Take with food. albuterol HFA (PROAIR HFA) 90 mcg/actuation inhaler Inhale 2 Puffs as instructed every 6 hours as needed. amoxicillin (AMOXIL) 875 mg tablet Take 1 tablet by mouth two times a day for 10 days. buPROPion XL (WELLBUTRIN XL) 150 mg 24 hr tablet Take 1 tablet by mouth once daily. norethindrone (AYGESTIN) 5 mg tablet Take 1 tablet by mouth as directed. 1 tablet 3 times daily until bleeding stops then twice daily for 2 days then 1 tablet daily until surgery No current facility-administered medications for this visit. Review of Systems Objective BP 122/78 (BP Position: Sitting) Pulse 83 Resp 16 Wt 113 kg (249 lb 1.9 oz) LMP 05/12/2024 (Within Days) SpO2 98% BMI 37.88 kg/m Physical Exam Constitutional: Appearance: Normal appearance. HENT: Head: Normocephalic. Eyes: Conjunctiva/sclera: Conjunctivae normal. Cardiovascular: Rate and Rhythm: Normal rate and regular rhythm. Heart sounds: Normal heart sounds. Pulmonary: Effort: Pulmonary effort is normal. Breath sounds: Normal breath sounds. Musculoskeletal: Right lower leg: No edema. Left lower leg: No edema. Skin: General: Skin is warm and dry. Neurological: General: No focal deficit present. Mental Status: She is alert and oriented to person, place, and time. Psychiatric: Mood and Affect: Mood normal. Behavior: Behavior normal. Thought Content: Thought content normal. Judgment: Judgment normal. Assessment and Plan # Anxiety and depression (F41.9) - Recent onset of depressive and anxious symptoms following IUD insertion. - Resumed Wellbutrin 150 mg daily in addition to current Zoloft regimen. - Discussed potential side effects of IUD and benefits of current medication regimen. - Patient agrees with the treatment plan. # Vitamin D deficiency (E55.9) - Currently taking Vitamin D supplements, approximately 5000 IU daily. - Recheck Vitamin D levels scheduled for September. # Polyp of corpus uteri (N84.0) - Recent polypectomy performed last Sunday. - Follow-up with Dr. Zavaleta in 4-6 weeks. - Discussed potential for anemia due to recent significant blood loss; advised to take iron supplements on Sunday, Sunday, and Sunday to improve absorption. - Patient understands and agrees with the plan. # Encounter for long-term current use of medication (Z79.899) - Discontinued Aygestin. - Continued use of Zoloft and resumed Wellbutrin. - Discontinued Flonase. - Albuterol and prednisone prescriptions remain active for potential future use. # History of back pain (Z87.39) - Recent lumbar X-ray shows mild progressive upper lumbar disc disease at L1-L2 and L2-L3 compared to 2019. - No significant arthritis in sacroiliac joints; no pars defect noted. - Discussed findings with patient, including mild disc space narrowing and stability of vertebrae. - Advised monitoring symptoms; patient reports improvement in back pain and numbness. - Follow-up as needed if symptoms worsen. Hung Rivero MD Recording using [employer] software for draft documentation of the visit was discussed with the patient/authorized sales representative printing paper; all questions welcomed and answered. Patient/authorized sales representative printing paper agreed to proceed documented in this encounter [place] 05-23-2024 Consult note [facility] 05-23-2024 Consult note [facility] 05-23-2024 Consult note Note Date/Time May 23, 2024 6:49am [facility] Medical Records Department [address] [place] [address] Pre-Anesthesia Evaluation 05/23/24 0649 MR#: [id number] Acct: [id number] Name: SASHA RACHEL Rep #:[id number] : 1985 39 From: Raul Godinez MD PCP: Dr. Hung Rivero MD Status:RE G SDC Y Race: C Location: [place] [address]- ASA Classification* ASA Classification ASA Classification: 3 Assessment & Plan Anesthesia* Anesthesia Assessment Anesthesia Assessment: Discussed sedation and/or anesthesia options, risks, benefits, and alternatives with patient/parents/legal guardian/POA. Questions invited. The patient/parents/legal guardian/POA seems to understand and agrees to proceedwith anesthesia plan. Reviewed the physical assessment, medical history, allergy history and patient home medications list prior to surgery/procedure/anesthetic and documented any changes. Performed airway and anesthesia risk assessments. Anesthesia Type Anesthesia Type: MAC Anesthesia Focused Assessment* Temperature: 97.0 F Pulse Rate: 72 Blood Pressure: 113/67 Respiratory Rate: 16 Pulse Ox: 97 Airway Assessment Mouth opens: >3 cm Mallampati Score: II Focused Labs Anesthesia Preop lab: CBC WBC 8.6 K/mm3 (4.4-11.0) 05/16/24 01:55 05/16/24 RBC 3.91 M/mm3 (4.2-5.4) L 05/16/24 01:55 05/16/24 Hgb 11.7 g/dL (12.0-15.0) L 05/16/24 01:55 5 Hct 36.0 % (37-47) L 05/16/24 01:55 05/16/24 Plt Count 236 K/mm3 (150-450) 05/16/24 01:55 05/16/24 CHEMISTRY Potassium 4.1 mmol/L (3.3-5.1) 05/16/24 01:55 05/16/24 Sodium 138 mmol/L (133-145) 05/16/24 01:55 05/16/24 BUN 20 mg/dL (4-19) H 05/16/24 01:55 05/16/24 Creatinine 0.79 mg/dL (0.70-1.20) 05/16/24 01:55 05/16/24 Glucose 88 mg/dL (70-99) 05/16/24 01:55 05/16/24 COAG PT 12.9 SECONDS (11.7-14.9) 05/16/24 01:55 Urine Test Negative Negative 05/23/24 05:55 05/23/24 Pre-Assessment Diagnosis/Proposed Procedure Planned Operative Procedure(s): HYSTEROSCOPY D&C POLYPECTOMY INSERTION OF LILETTA IUD Anesthesia History 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 When Was Last Pacemaker Check QUESTION #4 FULL TEXT: You/Your Family Experience fever (hyperthermia) with Anesthesia Last Oral Intake Last Oral intake: Last Oral Intake NPO since 00:00 05/23/24 06:07 Meds taken in AM with sips of No 05/23/24 06:07 water? Meds patient instructed to take am of surgery PONV PONV - meat dresser: PONV - meat dresser Female Yes 05/22/24 08:54 HX of Motion Sickness No 05/22/24 08:54 HX of N/V After Surgery No 05/22/24 08:54 Non-Smoker Yes 05/22/24 08:54 Duration of Surgery greater Yes 05/22/24 08:54 than 60 minutes Number of Risk Factors 3 05/22/24 08:54 PONV Score Moderate Risk 05/22/24 08:54 Height & Weight Height & Weight: Anesthesia: Height & Weight Height 5 ft 8 in 05/23/24 06:07 Weight: 116 kg 05/23/24 06:07 Body Mass Index (BMI) 38.9 05/23/24 06:07 Respiratory Assessment Respiratory Assessment - meat dresser: Respiratory Tract Infection Hx - meat dresser Hx Respiratory Tract Infection No 05/22/24 08:54 STOP Sleep Apnea STOP Sleep Apnea - meat dresser: STOP Sleep Apnea - meat dresser Hx Hypertension No 05/22/24 08:54 Hx Sleep Apnea No 05/22/24 08:54 CPAP BIPAP Do you snore loudly (louder Yes 05/22/24 08:54 than talking or can be heard Do you often feel tired/ Yes 05/22/24 08:54 fatigued/ sleepy during daytime? Has anyone observed you stop No 05/22/24 08:54 breathing during sleep? STOP Results Positive 05/22/24 08:54 QUESTION #5 FULL TEXT : Do you snore loudly (louder than talking or can be heard through closed doors)? 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 Specify any problems Hx of Preganancy in last 3 No 05/22/24 08:54 Months Nurse Filling Out Transfusion DSCHRIBER 05/22/24 08:54 & Questions: Date: 05/22/24 05/22/24 08:54 Time: 08:55 05/22/24 08:54 Patient unable to answer at this time (ie. confused, unrespo /Reproduction History /Reproductive History - meat dresser: /Reproductive Hx- meat dresser Hx Now No 05/22/24 08:54 Gestational Age (in weeks): EDC: Hx Hx Para Hx Section SAB No 05/22/24 08:54 Active Medications Active Medications: Current Medications Generic Name Dose Route Start Last Admin Trade Name Freq PRN Reason Stop Dose Admin Levonorgestrel 1 each 05/23/24 07:30 Levonorgestrel Iud (Liletta) INTRA-UTER 05/23/24 07:31 X1 ONE [facility] Medical History Depression History of steroid therapy Easy bruising Back pain Syncope Heartburn Non-smoker History of pain when walking History of edema Bradycardia Fibromyalgia Anxiety Home Medications ?Medication ?Instructions ?Recorded ?Last Taken ?Type sertraline 50 mg tablet 100 mg PO QHS 09/11/19 Unkno wn History hydroxyzine HCl 10 mg tablet 10 - 20 mg PO TID PRN PRN anxiety 05/16/24 Unknown History albuterol sulfate 90 mcg/actuation 2 puff inhalation Q 6H PRN PRN 05/22/24 Unknown History aerosol inhaler wheezing bpkzvfxe-erd-mttc-FA-Ca carb-vit K 2 tab PO DAILY 05/06 08/29 Unknown History 18 mg iron-400 mcg-500 mg tablet norethindrone acetate 5 mg tablet mg PO 05/23/2405/22 History Allergy/AdvReac Type Severity Reaction Status Date / Time cat dander (cats) Allergy WATERY Verified 05/23/24 06:06 EYES, CONGESTION grass pollen Allergy Other Verified 05/23/24 06:06 mold Allergy Other Verified 05/23/24 06:06 Family History Other Breast cancer Hypertension Surgical History History of hysteroscopy History of tonsillectomy Social History Smoking Status: Never smoker alcohol intake: never substance use type: does not use what type of physical activity do you participate in: walking frequency: 1-2 times per week Review of Systems (Anesthesia) ROS Narrative System reviewed and no additional complaints, except as documented. 05/23/24 0649 <Electronically signed by Raul Godinez MD > Date _ Raul Godinez MD Cosigner Signature: Date CC: ~ Signed [facility] Work Phone: [phone]) 926-817804-18-2025 Procedure note [facility] Medical Records Department [address] [place] [address] Operative Report 05/23/24 0741 MR#: [id number] Acct: [id number] Name: SASHA RACHEL Rep #:[id number] : 1985 39 From: Marisabel Zavaleta MD PCP: Dr. Hung Rivero MD Status:[facility] Location: [place] [address] Operative Report (Standard) Operative Information Date of Procedure: 05/23/24 Pre-Operative Diagnosis: AUB, endometrial polyp Post-Operative Diagnosis: same, endocervical polyp Surgery/Procedure Performed: Hysteroscopy, D&C, polypectomy, Insertion of Liletta IUD auto porter: No Type of Anesthesia: MAC RN Documented Start/Stop Times: Operation Date: 05/23/24 07:30 Case Time Into Pre-Op 05/23/24 05:54 Out of Pre-Op 05/23/24 07:12 Procedure Start Time: 07:28 Procedure Stop Time: 07:40 Select all DRAINS/GRAFTS/IMPLANTS that apply: Implanted device Implanted device details: Liletta IUD Estimated Blood Loss: <5cc Fluids Replaced: 300 Specimen collected: Yes Description of specimen(s) removed: endometrial curettings and endocervicalpolyp Description of surgery: Informed consent was obtained the patient was taken the operating room she was placed in supine position. She was given anesthesia. She was then placed in the [facility] where she was preppedand draped in the normal sterile fashion. At this time the weighted speculum was placed in the posterior fornix of vagina. Single-tooth tenaculum was used to gently grasp the anterior lip thecervix. At this time the uterine cavity was sounded to approximately 8.5 cm. Gentle dilatation was performedonce adequate dilatation of the cervix was achieved the hysteroscope using normal saline as a distention medium was placed. Tubal ostia visualized. thickened endometrial tissue noted especially around fundal aspect and endocervix contained what appeared to be polyp . Symphion resecting device used to obtain endometrial curettings and to perform polypectomy. Tissue will be sent to pathology for evaluation. at this time Liletta IUD was placed at uterine fundus without difficulty and strings cut to 2.5cm and Tenaculum removed. Good hemostasis. Instrument, lap count correct x 2. Vaginal Sweep was negative. fluid deficit 550cc Surgical Findings: possible enodcervical polyp and and thickened tissue noted. Complications Complications: No Admit VTE Documentation VTE Present on Admission: Yes VTE Mechan Device Prophylaxis: SCD's VTE Pharm Prophylaxis ordered?: No Reason prophylaxis not ordered: Treatment Not Indicated 05/23/24 0745 Cosigner Signature (if applicable): CC: Dr Marisabel Kelly MD; Dr. Hung Rivero MD~ Signed [facility]04-18-2025 Discharge summary [facility] Medical Records Department [address] [place] [address] Instructions for Home/Discharge Instructions 05/23/24 0716 MR#: [id number] Acct: [id number] Name: SASHA RACHEL Rep #:[id number] : 1985 39 From: Marisabel Zavaleta MD PCP: Dr. Hung Rivero MD Status:RE G [facility] Discharge Instructions Diet Discharge Diet: No restrictions DC O2, CPAP, BIPAP needs Home O2 Discharge instructions: No Dressing / Incision May resume sexual activity in: 1 week Dressing / Incision Call your doctor if you observe: Fever of 101 or Higher, Inability to urinate, Using more than 1 pad per hour and Uncontrolled pain Follow Up Care Please Follow Up With: Marisabel Kelly MD When: 4-6 weeks for IUD check. I will call you when pathology results are available. If you feel you need seen before that time please call [phone] to schedule an appointment. Test Results: Test results from this visit will be discussed in further detail at your follow- up appointment, if applicable. Discharge Plan Admission Attending Provider: Marisabel Kelly Primary Care Provider: Hung Rivero Instructions Print Language: Citizen Of [place] Discharge Orders/Prescriptions Prescriptions: No Action sertraline 50 MG tablet 100 mg PO QHS hydroxyzine HCl 10 mg tablet 10 - 20 mg PO TID PRN PRN (Reason: anxiety) albuterol sulfate 90 mcg/actuation HFA aerosol inhaler 2 puff INHALATION Q6H PRN PRN (Reason: wheezing) es-nx-cslr-FA-Ca carb-vit K 18 mg iron-400 mcg-500 mg tablet 2 tab PO DAILY norethindrone acetate 5 mg tablet PO Referrals / Follow Up: Hung Rivero MD [Primary Care Provider] - Disposition Disposition (needs filled in before D/C Order can be placed): Home, Self Care 05/23/24 0717Marisabel Kelly MD CC: Dr. Hung Rivero MD ~ Signed [facility]04-18-2025 History and physical note [facility] Medical Records Department [address] [place] [address] H&P Exam - NURSING INSTRUCTOR 05/22/24 1214 MR#: [id number] Acct: [id number] Name: SASHA RACHEL Rep #:[id number] : 1985 39 From: Marisabel Zavaleta MD PCP: Dr. Hung Rivero MD Status:[facility] Location: [place] [address] History and Physical Date of Admission: 05/23/24 Expand All Collapse All Pre-Op History and Physical HPI: The patient is a 39 year old female presenting for discussion of AUB/polyp and surgical mgmt. pre-operative visit. She is scheduled for hysteroscopy, D&C, polypectomy with symphion and insertion of liletta IUD for AUB, polyp on 05/23/24. Procedure discussed along with risks, benefits and complications. Other alternatives discussed for management. Consent form signed? Yes. PAST MEDICAL HISTORY PAST MEDICAL HISTORY Diagnosis Date ? Abnormal Pap smear of cervix 2004 ? Allergic rhinitis due to other allergen ? Depressive disorder, not elsewhere classified ? Fibromyalgia ? Food poisoning 2014 ? Irritable bowel syndrome ? Myalgia and myositis, unspecified ? Other chronic sinusitis PAST SURGICAL HISTORY PAST SURGICAL HISTORY Procedure Laterality Date ? HYSTEROSCOPY BX ENDOMETRIUM&/POLYPC W/WO D&C 09/18/2019 hysteroscopy D&C for AUP ? TONSILLECTOMY & ADENOIDECTOMY AGE 12/> 1996 CURRENT MEDICATIONS Current Outpatient Medications Medication Sig Dispense Refill ? norethindrone (AYGESTIN) 5 mg tablet Take 1 tablet by mouth as directed. 1tablet 3 times daily until bleeding stops then twice daily for 2 days then 1 tablet daily until surgery 30 tablet 1 ? albuterol HFA (PROVENTIL HFA, VENTOLIN HFA) 90 mcg/actuation inhaler Inhale 2 Puffs as instructedevery 6 hours as needed for wheezing/shortness of breath. 1 Each 0 ? Peaqeybekogqskw-Rahyhbrsx-ZJ (BROMFED DM) 2-30-10 mg/5 mL syrup Take 5 mL by mouth four times a day as needed. 120 mL 0 ? fluticasone (FLONASE) 50 mcg/actuation nasal spray Use 2 Sprays in each nostril once daily. [place] after use. 1 Each 0 ? sertraline (ZOLOFT) 100 mg tablet Take 1 tablet by mouth once daily. Dose change, take 1 daily 90tablet 3 ? fluticasone (FLONASE) 50 mcg/actuation nasal spray Use 2 Sprays in each nostril once daily. [place] after use. 1 Each 0 ? benzonatate (TESSALON PERLE) 100 mg capsule Take 1-2 capsules by mouth three times a day as needed. 60 capsule 1 ? sod bicarb-sod chlor-neti pot (NEILMED NASAFLO) pkdv 1 Each by sinus irrigation route two times aday as needed (for sinus congestion and drainage). 30 Each 0 ? hydrOXYzine HCl (ATARAX) 10 mg tablet Take 1-2 tablets by mouth three times a day as needed for anxiety. 90 tablet 2 ? buPROPion XL (WELLBUTRIN XL) 150 mg 24 hr tablet Take 1 tablet by mouth once daily. 90 tablet 3 ? ondansetron orally disintegrating (ZOFRAN ODT) 4 mg disintegrating tablet Take 1 tablet by mouth every 6 hours as needed for nausea/vomiting. 20 tablet 0 ? cholecalciferol (VITAMIN D3) 5,000 unit tab Take 1 tablet by mouth once daily. ? Magnesium 250 mg tab Take 2 tablets by mouth once daily. for anxiety / depression ? ibuprofen (MOTRIN) 200 mg tablet Take 4 tablets by mouth every 8 hours as needed for pain (headache). Take with food. ? albuterol HFA (PROAIR HFA) 90 mcg/actuation inhaler Inhale 2 Puffs as instructed every 6 hours asneeded. 1 Inhaler 2 No current facility-administered medications for this visit. ALLERGIES: Mold and Seasonal Allergies PERSONAL HISTORY: SOCIAL HISTORY Social History Tobacco Use ? Smoking status: Never ? Smokeless tobacco: Never Vaping Use ? Vaping status: Never Used Substance Use Topics ? Alcohol use: Yes Comment: Occasionally, but not while ? Drug use: No FAMILY HISTORY: FAMILY HISTORY FAMILY HISTORY Problem Relation Age of Onset ? Breast Cancer Mother ? other (hypercholesterolemia) Mother diet controlled ? Obesity Mother ? other (hysterectomy) Mother ? Parkinson?s Disease Father ? Prostate Cancer Father ? Obesity Father ? other (overweight) Sister ? Heart Maternal Grandmother ? Obesity Maternal Grandmother ? Psychiatry Maternal Grandfather ? Obesity Maternal Grandfather ? Hypertension Paternal Grandmother ? Heart Paternal Grandmother ? Obesity Paternal Grandmother ? Heart Paternal Grandfather ? Obesity Paternal Grandfather ? Autism Son REVIEW OF SYMPTOMS: negative except as noted above PHYSICAL EXAMINATION: VITALS: Last menstrual period 05/12/2024. GENERAL: The patient is well nourished, well hydrated in no acute distress. , The patient is oriented to time, place, and person. NECK: full range of motion LUNGS: Clear to auscultation bilaterally. no wheezes, rhonchi or rales HEART: Regular rate and rhythm, Normal heart sounds, and No murmurs or gallops IMPRESSION: 39yo with AUB, endometrial polyp PLAN: hysteroscopy, D&C, polypectomy with symphion Pt has been counseled on risks/benefits and alternatives of surgery including but not limited to anesthesia, bleeding, infection, uterine perforation injury to pelvic structures including bowel, bladder, ureters and vessels. Pt wishes to proceed with surgery at this time. I have reviewed and updated past medical and surgical history, medications and allergies Marisabel Zavaleta MD Office Visit on 05/21/2024 Note shared with patient 05/22/24 1214 Cosigner Signature (if applicable): CC: Dr Marisabel Kelly MD; Dr. Hung Rivero MD~ Signed ADDENDUM by Dr Marisabel Kelly MD on 05/23/24 at 0712 Addendum I have examined the patient and the H&P has been reviewed. There are no clinicalchanges since date of exam. 05/23/24 0712 Cosigner Signature (if applicable): cc: Dr Marisabel Kelly MD; Dr. Hung Rivero MD ~* Signed [facility]04-18-2025 Consult note [facility] Medical Records Department [address] [place] [address] Pre-Anesthesia Evaluation 05/23/24 0649 MR#: [id number] Acct: [id number] Name: SASHA RACHEL Rep #:[id number] : 1985 39 From: Raul Godinez MD PCP: Dr. Hung Rivero MD Status:RE G SDC Y Race: C Location: [place] [address] ASA Classification* ASA Classification ASA Classification: 3 Assessment & Plan Anesthesia* Anesthesia Assessment Anesthesia Assessment: Discussed sedation and/or anesthesia options, risks, benefits, and alternatives with patient/parents/legal guardian/POA. Questions invited. The patient/parents/legal guardian/POA seems to understand and agrees to proceedwith anesthesia plan. Reviewed the physical assessment, medical history, allergy history and patient home medications list prior to surgery/procedure/anesthetic and documented any changes. Performed airway and anesthesia risk assessments. Anesthesia Type Anesthesia Type: MAC Anesthesia Focused Assessment* Temperature: 97.0 F Pulse Rate: 72 Blood Pressure: 113/67 Respiratory Rate: 16 Pulse Ox: 97 Airway Assessment Mouth opens: >3 cm Mallampati Score: II Focused Labs Anesthesia Preop lab: CBC WBC 8.6 K/mm3 (4.4-11.0) 05/16/24 01:55 05/16/24 RBC 3.91 M/mm3 (4.2-5.4) L 05/16/24 01:55 05/16/24 Hgb 11.7 g/dL (12.0-15.0) L 05/16/24 01:55 5 Hct 36.0 % (37-47) L 05/16/24 01:55 05/16/24 Plt Count 236 K/mm3 (150-450) 05/16/24 01:55 05/16/24 CHEMISTRY Potassium 4.1 mmol/L (3.3-5.1) 05/16/24 01:55 05/16/24 Sodium 138 mmol/L (133-145) 05/16/24 01:55 05/16/24 BUN 20 mg/dL (4-19) H 05/16/24 01:55 05/16/24 Creatinine 0.79 mg/dL (0.70-1.20) 05/16/24 01:55 05/16/24 Glucose 88 mg/dL (70-99) 05/16/24 01:55 05/16/24 COAG PT 12.9 SECONDS (11.7-14.9) 05/16/24 01:55 Urine Test Negative Negative 05/23/24 05:55 05/23/24 Pre-Assessment Diagnosis/Proposed Procedure Planned Operative Procedure(s): HYSTEROSCOPY D&C POLYPECTOMY INSERTION OF LILETTA IUD Anesthesia History 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 When Was Last Pacemaker Check QUESTION #4 FULL TEXT: You/Your Family Experience fever (hyperthermia) with Anesthesia Last Oral Intake Last Oral intake: Last Oral Intake NPO since 00:00 05/23/24 06:07 Meds taken in AM with sips of No 05/23/24 06:07 water? Meds patient instructed to take am of surgery PONV PONV - meat dresser: PONV - meat dresser Female Yes 05/22/24 08:54 HX of Motion Sickness No 05/22/24 08:54 HX of N/V After Surgery No 05/22/24 08:54 Non-Smoker Yes 05/22/24 08:54 Duration of Surgery greater Yes 05/22/24 08:54 than 60 minutes Number of Risk Factors 3 05/22/24 08:54 PONV Score Moderate Risk 05/22/24 08:54 Height & Weight Height & Weight: Anesthesia: Height & Weight Height 5 ft 8 in 05/23/24 06:07 Weight: 116 kg 05/23/24 06:07 Body Mass Index (BMI) 38.9 05/23/24 06:07 Respiratory Assessment Respiratory Assessment - meat dresser: Respiratory Tract Infection Hx - meat dresser Hx Respiratory Tract Infection No 05/22/24 08:54 STOP Sleep Apnea STOP Sleep Apnea - meat dresser: STOP Sleep Apnea - meat dresser Hx Hypertension No 05/22/24 08:54 Hx Sleep Apnea No 05/22/24 08:54 CPAP BIPAP Do you snore loudly (louder Yes 05/22/24 08:54 than talking or can be heard Do you often feel tired/ Yes 05/22/24 08:54 fatigued/ sleepy during daytime? Has anyone observed you stop No 05/22/24 08:54 breathing during sleep? STOP Results Positive 05/22/24 08:54 QUESTION #5 FULL TEXT : Do you snore loudly (louder than talking or can be heard through closeddoors)? 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 Specify any problems Hx of Preganancy in last 3 No 05/22/24 08:54 Months Nurse Filling Out Transfusion DSCHRIBER 05/22/24 08:54 & Questions: Date: 05/22/24 05/22/24 08:54 Time: 08:55 05/22/24 08:54 Patient unable to answer at this time (ie. confused, unrespo /Reproduction History /Reproductive History - meat dresser: /Reproductive Hx- meat dresser Hx Now No 05/22/24 08:54 Gestational Age (in weeks): EDC: Hx Hx Para Hx Section SAB No 05/22/24 08:54 Active Medications Active Medications: Current Medications Generic Name Dose Route Start Last Admin Trade Name Freq PRN Reason Stop Dose Admin Levonorgestrel 1 each 05/23/24 07:30 Levonorgestrel Iud (Liletta) INTRA-UTER 05/23/24 07:31 X1 ONE [facility] Medical History Depression History of steroid therapy Easy bruising Back pain Syncope Heartburn Non-smoker History of pain when walking History of edema Bradycardia Fibromyalgia Anxiety Home Medications ?Medication ?Instructions ?Recorded ?Last Taken ?Type sertraline 50 mg tablet 100 mg PO QHS 09/11/19 Unkno wn History hydroxyzine HCl 10 mg tablet 10 - 20 mg PO TID PRN PRN anxiety 05/16/24 Unknown History albuterol sulfate 90 mcg/actuation 2 puff inhalation Q 6H PRN PRN 05/22/24 Unknown History aerosol inhaler wheezing izvosdht-rhd-rwtg-FA-Ca carb-vit K 2 tab PO DAILY 05/06 08/29 Unknown History 18 mg iron-400 mcg-500 mg tablet norethindrone acetate 5 mg tablet mg PO 05/23/2405/22 History Allergy/AdvReac Type Severity Reaction Status Date / Time cat dander (cats) Allergy WATERY Verified 05/23/24 06:06 EYES, CONGESTION grass pollen Allergy Other Verified 05/23/24 06:06 mold Allergy Other Verified 05/23/24 06:06 Family History Other Breast cancer Hypertension Surgical History History of hysteroscopy History of tonsillectomy Social History Smoking Status: Never smoker alcohol intake: never substance use type: does not use what type of physical activity do you participate in: walking frequency: 1-2 times per week Review of Systems (Anesthesia) ROS Narrative System reviewed and no additional complaints, except as documented. 05/23/24 0649 > Date _ Raul Edward Signature: Date CC: ~ Signed [facility]04-17-2025 History and physical note Author Marisabel Swenson [place] Note Date/Time May 23, 2024 7:1 2am [facility] Medical Records Department [address] [place] [address] H&P Exam - NURSING INSTRUCTOR 05/22/24 1214 MR#: [id number] Acct: [id number] Name: SASHA RACHEL Rep #:[id number] : 1985 39 From: Marisabel Zavaleta MD PCP: Dr. Hung Rivero MD Status:[facility] Location: [place] [address] History and Physical Date of Admission: 05/23/24 Expand All Collapse All Pre-Op History and Physical HPI: The patient is a 39 year old female presenting for discussion of AUB/polyp and surgical mgmt. pre-operative visit. She is scheduled for hysteroscopy, D&C, polypectomy with symphion and insertion of liletta IUD for AUB, polyp on 05/23/24. Procedure discussed along with risks, benefits and complications. Other alternatives discussed for management. Consent form signed? Yes. PAST MEDICAL HISTORY PAST MEDICAL HISTORY Diagnosis Date ? Abnormal Pap smear of cervix 2004 ? Allergic rhinitis due to other allergen ? Depressive disorder, not elsewhere classified ? Fibromyalgia ? Food poisoning 2014 ? Irritable bowel syndrome ? Myalgia and myositis, unspecified ? Other chronic sinusitis PAST SURGICAL HISTORY PAST SURGICAL HISTORY Procedure Laterality Date ? HYSTEROSCOPY BX ENDOMETRIUM&/POLYPC W/WO D&C 09/18/2019 hysteroscopy D&C for AUP ? TONSILLECTOMY & ADENOIDECTOMY AGE 12/> 1996 CURRENT MEDICATIONS Current Outpatient Medications Medication Sig Dispense Refill ? norethindrone (AYGESTIN) 5 mg tablet Take 1 tablet by mouth as directed. 1tablet 3 times daily until bleeding stops then twice daily for 2 days then 1 tablet daily until surgery 30 tablet 1 ? albuterol HFA (PROVENTIL HFA, VENTOLIN HFA) 90 mcg/actuation inhaler Inhale 2 Puffs as instructed every 6 hours as needed for wheezing/shortness of breath. 1 Each 0 ? Ndbanqlmfshhroq-Qurpmmdxi-VM (BROMFED DM) 2-30-10 mg/5 mL syrup Take 5 mL by mouth four times a day as needed. 120 mL 0 ? fluticasone (FLONASE) 50 mcg/actuation nasal spray Use 2 Sprays in each nostril once daily. Rinse mouth after use. 1 Each 0 ? sertraline (ZOLOFT) 100 mg tablet Take 1 tablet by mouth once daily. Dose change, take 1 daily 90 tablet 3 ? fluticasone (FLONASE) 50 mcg/actuation nasal spray Use 2 Sprays in each nostril once daily. Rinse mouth after use. 1 Each 0 ? benzonatate (TESSALON PERLE) 100 mg capsule Take 1-2 capsules by mouth three times a day as needed. 60 capsule 1 ? sod bicarb-sod chlor-neti pot (NEILMED NASAFLO) pkdv 1 Each by sinus irrigation route two times a day as needed (for sinus congestion and drainage). 30 Each 0 ? hydrOXYzine HCl (ATARAX) 10 mg tablet Take 1-2 tablets by mouth three times a day as needed for anxiety. 90 tablet 2 ? buPROPion XL (WELLBUTRIN XL) 150 mg 24 hr tablet Take 1 tablet by mouth once daily. 90 tablet 3 ? ondansetron orally disintegrating (ZOFRAN ODT) 4 mg disintegrating tablet Take 1 tablet by mouth every 6 hours as needed for nausea/vomiting. 20 tablet 0 ? cholecalciferol (VITAMIN D3) 5,000 unit tab Take 1 tablet by mouth once daily. ? Magnesium 250 mg tab Take 2 tablets by mouth once daily. for anxiety / depression ? ibuprofen (MOTRIN) 200 mg tablet Take 4 tablets by mouth every 8 hours as needed for pain (headache). Take with food. ? albuterol HFA (PROAIR HFA) 90 mcg/actuation inhaler Inhale 2 Puffs as instructed every 6 hours as needed. 1 Inhaler 2 No current facility-administered medications for this visit. ALLERGIES: Mold and Seasonal Allergies PERSONAL HISTORY: SOCIAL HISTORY Social History Tobacco Use ? Smoking status: Never ? Smokeless tobacco: Never Vaping Use ? Vaping status: Never Used Substance Use Topics ? Alcohol use: Yes Comment: Occasionally, but not while ? Drug use: No FAMILY HISTORY: FAMILY HISTORY FAMILY HISTORY Problem Relation Age of Onset ? Breast Cancer Mother ? other (hypercholesterolemia) Mother diet controlled ? Obesity Mother ? other (hysterectomy) Mother ? Parkinson?s Disease Father ? Prostate Cancer Father ? Obesity Father ? other (overweight) Sister ? Heart Maternal Grandmother ? Obesity Maternal Grandmother ? Psychiatry Maternal Grandfather ? Obesity Maternal Grandfather ? Hypertension Paternal Grandmother ? Heart Paternal Grandmother ? Obesity Paternal Grandmother ? Heart Paternal Grandfather ? Obesity Paternal Grandfather ? Autism Son REVIEW OF SYMPTOMS: negative except as noted above PHYSICAL EXAMINATION: VITALS: Last menstrual period 05/12/2024. GENERAL: The patient is well nourished, well hydrated in no acute distress. , The patient is oriented to time, place, and person. NECK: full range of motion LUNGS: Clear to auscultation bilaterally. no wheezes, rhonchi or rales HEART: Regular rate and rhythm, Normal heart sounds, and No murmurs or gallops IMPRESSION: 39yo with AUB, endometrial polyp PLAN: hysteroscopy, D&C, polypectomy with symphion Pt has been counseled on risks/benefits and alternatives of surgery including but not limited to anesthesia, bleeding, infection, uterine perforation injury to pelvic structures including bowel, bladder, ureters and vessels. Pt wishes to proceed with surgery at this time. I have reviewed and updated past medical and surgical history, medications and allergies Marisabel Zavaleta MD Office Visit on 05/21/2024 Note shared with patient 05/22/24 1214 <Electronically signed by Marisabel Kelly MD> Cosigner Signature (if applicable): CC: Dr Marisabel Kelly MD; Dr. Hung Rivero MD~ Signed ADDENDUM by Dr Marisabel Kelly MD on 05/23/24 at 0712 Addendum I have examined the patient and the H&P has been reviewed. There are no clinicalchanges since date of exam. 05/23/24 0712<Electronically signed by Marisabel Kelly MD> Cosigner Signature (if applicable): cc: Dr Marisabel Kelly MD; Dr. Hung Rivero MD ~* Signed [facility] Work Phone: [phone]) [phone] NoteHNO ID: [id number] Author: MARISABEL CRYSTAL MD Service: ? Author Type: Physician Type: Progress Notes Filed: 05/21/2024 10:01 Note Text:[facility]04-16-2025 History of Present illness Narrative* Marisabel Crystal MD - 05/21/2024 10:00 AM EDT [place] History and physical note * Marisabel Crystal MD - 05/21/2024 9:18 AM EDT Pre-Op History and Physical HPI: The patient is a 39 year old female presenting for discussion of AUB/polyp and surgical mgmt. pre-operative visit. She is scheduled for hysteroscopy, D&C, polypectomy with symphion and insertion of liletta IUD for AUB, polyp on 05/23/24. Procedure discussed along with risks, benefits and complications. Other alternatives discussed for management. Consent form signed? Yes. PAST MEDICAL HISTORY Diagnosis Date Abnormal Pap smear of cervix 2004 Allergic rhinitis due to other allergen Depressive disorder, not elsewhere classified Fibromyalgia Food poisoning 2015 Irritable bowel syndrome Myalgia and myositis, unspecified Other chronic sinusitis PAST SURGICAL HISTORY Procedure Laterality Date HYSTEROSCOPY BX ENDOMETRIUM&/POLYPC W/WO D&C 09/18/2019 hysteroscopy D&C for AUP TONSILLECTOMY & ADENOIDECTOMY AGE 12/> 1996 Current Outpatient Medications Medication Sig Dispense Refill norethindrone (AYGESTIN) 5 mg tablet Take 1 tablet by mouth as directed. 1 tablet 3 times daily until bleeding stops then twice daily for 2 days then 1 tablet daily until surgery 30 tablet 1 albuterol HFA (PROVENTIL HFA, VENTOLIN HFA) 90 mcg/actuation inhaler Inhale 2 Puffs as instructed every 6 hours as needed for wheezing/shortness of breath. 1 Each 0 Aiicganmqebosww-Rowkfdcun-IU (BROMFED DM) 2-30-10 mg/5 mL syrup Take 5 mL by mouth four times a dayas needed. 120 mL 0 fluticasone (FLONASE) 50 mcg/actuation nasal spray Use 2 Sprays in each nostril once daily. Rinse mouth after use. 1 Each 0 sertraline (ZOLOFT) 100 mg tablet Take 1 tablet by mouth once daily. Dose change, take 1 daily 90 tablet 3 fluticasone (FLONASE) 50 mcg/actuation nasal spray Use 2 Sprays in each nostril once daily. Rinse mouth after use. 1 Each 0 benzonatate (TESSALON PERLE) 100 mg capsule Take 1-2 capsules by mouth three times a day as needed.60 capsule 1 sod bicarb-sod chlor-neti pot (NEILMED NASAFLO) pkdv 1 Each by sinus irrigation route two times a day as needed (for sinus congestion and drainage). 30 Each 0 hydrOXYzine HCl (ATARAX) 10 mg tablet Take 1-2 tablets by mouth three times a day as needed for anxiety. 90 tablet 2 buPROPion XL (WELLBUTRIN XL) 150 mg 24 hr tablet Take 1 tablet by mouth once daily. 90 tablet 3 ondansetron orally disintegrating (ZOFRAN ODT) 4 mg disintegrating tablet Take 1 tablet by mouth every 6 hours as needed for nausea/vomiting. 20 tablet 0 cholecalciferol (VITAMIN D3) 5,000 unit tab Take 1 tablet by mouth once daily. Magnesium 250 mg tab Take 2 tablets by mouth once daily. for anxiety / depression ibuprofen (MOTRIN) 200 mg tablet Take 4 tablets by mouth every 8 hours as needed for pain (headache). Take with food. albuterol HFA (PROAIR HFA) 90 mcg/actuation inhaler Inhale 2 Puffs as instructed every 6 hours as needed. 1 Inhaler 2 No current facility-administered medications for this visit. ALLERGIES: Mold and Seasonal Allergies PERSONAL HISTORY: Social History Tobacco Use Smoking status: Never Smokeless tobacco: Never Vaping Use Vaping status: Never Used Substance Use Topics Alcohol use: Yes Comment: Occasionally, but not while Drug use: No FAMILY HISTORY: FAMILY HISTORY Problem Relation Age of Onset Breast Cancer Mother other (hypercholesterolemia) Mother diet controlled Obesity Mother other (hysterectomy) Mother Parkinson s Disease Father Prostate Cancer Father Obesity Father other (overweight) Sister Heart Maternal Grandmother Obesity Maternal Grandmother Psychiatry Maternal Grandfather Obesity Maternal Grandfather Hypertension Paternal Grandmother Heart Paternal Grandmother Obesity Paternal Grandmother Heart Paternal Grandfather Obesity Paternal Grandfather Autism Son REVIEW OF SYMPTOMS: negative except as noted above PHYSICAL EXAMINATION: VITALS: Last menstrual period 05/12/2024. GENERAL: The patient is well nourished, well hydrated in no acute distress. , The patient is oriented to time, place, and person. NECK: full range of motion LUNGS: Clear to auscultation bilaterally. no wheezes, rhonchi or rales HEART: Regular rate and rhythm, Normal heart sounds, and No murmurs or gallops IMPRESSION: 39yo with AUB, endometrial polyp PLAN: hysteroscopy, D&C, polypectomy with symphion Pt has been counseled on risks/benefits and alternatives of surgery including but not limited to anesthesia, bleeding, infection, uterine perforation injury to pelvic structures including bowel, bladder, ureters and vessels. Pt wishes to proceed with surgery at this time. I have reviewed and updated past medical and surgical history, medications and allergies Marisabel Zavaleta MD [place]04-16-2025 History and physical note* Marisabel Crystal MD - 05/21/2024 9:18 AM EDT Pre-Op History and Physical HPI: The patient is a 39 year old female presenting for discussion of AUB/polyp and surgical mgmt. pre-operative visit. She is scheduled for hysteroscopy, D&C, polypectomy with symphion and insertion of liletta IUD for AUB, polyp on 05/23/24. Procedure discussed along with risks, benefits and complications. Other alternatives discussed for management. Consent form signed? Yes. PAST MEDICAL HISTORY Diagnosis Date Abnormal Pap smear of cervix 2004 Allergic rhinitis due to other allergen Depressive disorder, not elsewhere classified Fibromyalgia Food poisoning 2014 Irritable bowel syndrome Myalgia and myositis, unspecified Other chronic sinusitis PAST SURGICAL HISTORY Procedure Laterality Date HYSTEROSCOPY BX ENDOMETRIUM&/POLYPC W/WO D&C 09/18/2019 hysteroscopy D&C for AUP TONSILLECTOMY & ADENOIDECTOMY AGE 12/> 1996 Current Outpatient Medications Medication Sig Dispense Refill norethindrone (AYGESTIN) 5 mg tablet Take 1 tablet by mouth as directed. 1 tablet 3 times daily until bleeding stops then twice daily for 2 days then 1 tablet daily until surgery 30 tablet 1 albuterol HFA (PROVENTIL HFA, VENTOLIN HFA) 90 mcg/actuation inhaler Inhale 2 Puffs as instructed every 6 hours as needed for wheezing/shortness of breath. 1 Each 0 Ppjhkurihjygcip-Vaqzyuzfe-IP (BROMFED DM) 2-30-10 mg/5 mL syrup Take 5 mL by mouth four times a dayas needed. 120 mL 0 fluticasone (FLONASE) 50 mcg/actuation nasal spray Use 2 Sprays in each nostril once daily. Rinse mouth after use. 1 Each 0 sertraline (ZOLOFT) 100 mg tablet Take 1 tablet by mouth once daily. Dose change, take 1 daily 90 tablet 3 fluticasone (FLONASE) 50 mcg/actuation nasal spray Use 2 Sprays in each nostril once daily. Rinse mouth after use. 1 Each 0 benzonatate (TESSALON PERLE) 100 mg capsule Take 1-2 capsules by mouth three times a day as needed.60 capsule 1 sod bicarb-sod chlor-neti pot (NEILMED NASAFLO) pkdv 1 Each by sinus irrigation route two times a day as needed (for sinus congestion and drainage). 30 Each 0 hydrOXYzine HCl (ATARAX) 10 mg tablet Take 1-2 tablets by mouth three times a day as needed for anxiety. 90 tablet 2 buPROPion XL (WELLBUTRIN XL) 150 mg 24 hr tablet Take 1 tablet by mouth once daily. 90 tablet 3 ondansetron orally disintegrating (ZOFRAN ODT) 4 mg disintegrating tablet Take 1 tablet by mouth every 6 hours as needed for nausea/vomiting. 20 tablet 0 cholecalciferol (VITAMIN D3) 5,000 unit tab Take 1 tablet by mouth once daily. Magnesium 250 mg tab Take 2 tablets by mouth once daily. for anxiety / depression ibuprofen (MOTRIN) 200 mg tablet Take 4 tablets by mouth every 8 hours as needed for pain (headache). Take with food. albuterol HFA (PROAIR HFA) 90 mcg/actuation inhaler Inhale 2 Puffs as instructed every 6 hours as needed. 1 Inhaler 2 No current facility-administered medications for this visit. ALLERGIES: Mold and Seasonal Allergies PERSONAL HISTORY: Social History Tobacco Use Smoking status: Never Smokeless tobacco: Never Vaping Use Vaping status: Never Used Substance Use Topics Alcohol use: Yes Comment: Occasionally, but not while Drug use: No FAMILY HISTORY: FAMILY HISTORY Problem Relation Age of Onset Breast Cancer Mother other (hypercholesterolemia) Mother diet controlled Obesity Mother other (hysterectomy) Mother Parkinson s Disease Father Prostate Cancer Father Obesity Father other (overweight) Sister Heart Maternal Grandmother Obesity Maternal Grandmother Psychiatry Maternal Grandfather Obesity Maternal Grandfather Hypertension Paternal Grandmother Heart Paternal Grandmother Obesity Paternal Grandmother Heart Paternal Grandfather Obesity Paternal Grandfather Autism Son REVIEW OF SYMPTOMS: negative except as noted above PHYSICAL EXAMINATION: VITALS: Last menstrual period 05/12/2024. GENERAL: The patient is well nourished, well hydrated in no acute distress. , The patient is oriented to time, place, and person. NECK: full range of motion LUNGS: Clear to auscultation bilaterally. no wheezes, rhonchi or rales HEART: Regular rate and rhythm, Normal heart sounds, and No murmurs or gallops IMPRESSION: 39yo with AUB, endometrial polyp PLAN: hysteroscopy, D&C, polypectomy with symphion Pt has been counseled on risks/benefits and alternatives of surgery including but not limited to anesthesia, bleeding, infection, uterine perforation injury to pelvic structures including bowel, bladder, ureters and vessels. Pt wishes to proceed with surgery at this time. I have reviewed and updated past medical and surgical history, medications and allergies Marisabel Zavaleta MD [facility] [place] [facility]-14-[facility] Telephone encounter Note * Telephone Encounter - Leonora Chow LPN - 05/19/2024 4:19 PM EDT Patient scheduled 05/23/2024 [place]04-14-2025 Miscellaneous Notes* Telephone Encounter - Leonora Chow LPN - 05/19/2024 4:19 PM EDT Patient scheduled 05/23/2024 documented in this [facility]04-11-2025 NoteHNO ID: [id number] Author: ADRIANA CLARK APRN.AIR DEFENCE OFFICER Service: ? Author Type: Nurse Practitioner Type: Progress Notes Filed: 05/16/2024 17:24 Note Text: Solar Lab Technician offered: Patient declines. Sasha Rachel is a 39 year old female who presents for problem visit ED follow-up HMB HPI: [facility] ED visit last night for HMB. CBC WNL Evaluated 04/24/2024 for HMB after stopping LAISHA. Sprintec restarted 04/24/2024 and bleeding slowed to a stop over the next week. Bleeding started 5 days ago becoming heavy yesterday and started passing clots larger than the size of her hand. Bleeding has slowed a little. Pelvic ultrasound today Impression Anteverted uterus with thickened endometrium. There is a hyperechoic focus with vascular stalk within the endometrium likely representing a single large polyp, 29 mm x 18 mm x 11 mm. No focal myometrial lesions Right Ovary is not visualized. Left Ovary is normal. Cul de sac is normal with no free fluid. OB History Gravida1 Para1 Term1 Preterm0 AB0 Living1 SAB0 IAB0 Ectopic0 Multiple0 Live Births1 Sausage Stringer History LMP: 05/12/2024 (Within Days), Having periods Age at Menarche: Age at First : Age at Menopause: Sausage Stringer History Comments: Sexual Activity: Yes; Male Contraception: No contraception data on record PAST MEDICAL HISTORY Diagnosis Date Abnormal Pap smear of cervix 2004 Allergic rhinitis due to other allergen Depressive disorder, not elsewhere classified Fibromyalgia Food poisoning 2014 Irritable bowel syndrome Myalgia and myositis, unspecified Other chronic sinusitis PAST SURGICAL HISTORY Procedure Laterality Date HYSTEROSCOPY BX ENDOMETRIUMAND/POLYPC W/WO DANNY 09/18/2019 hysteroscopy [facility] for AUP TONSILLECTOMY AND ADENOIDECTOMY AGE 12/1996 FAMILY HISTORY Problem Relation Age of Onset Breast Cancer Mother other (hypercholesterolemia) Mother diet controlled Obesity Mother other (hysterectomy) Mother Parkinson?s Disease Father Prostate Cancer Father Obesity Father other (overweight) Sister Heart Maternal Grandmother Obesity Maternal Grandmother Psychiatry Maternal Grandfather Obesity Maternal Grandfather Hypertension Paternal Grandmother Heart Paternal Grandmother Obesity Paternal Grandmother Heart Paternal Grandfather Obesity Paternal Grandfather Autism Son Social History Tobacco Use Smoking status: Never Smokeless tobacco: Never Vaping Use Vaping status: Never Used Substance Use Topics Alcohol use: Yes Comment: Occasionally, but not while Drug use: No Current Outpatient Medications Medication Sig norgestimate 0.25 mg-ethinyl estradiol 35 mcg (SPRINTEC) 0.25-35 mg-mcg per tablet Take 1 tablet by mouth once daily. albuterol HFA (PROVENTIL HFA, VENTOLIN HFA) 90 mcg/actuation inhaler Inhale 2 Puffs as instructed every 6 hours as needed for wheezing/shortness of breath. Ntcdamtwcdjccyb-Mgmhzyjzr-XU (BROMFED DM) 2-30-10 mg/5 mL syrup Take 5 mL by mouth four times a day as needed. fluticasone (FLONASE) 50 mcg/actuation nasal spray Use 2 Sprays in each nostril once daily. Rinse mouth after use. sertraline (ZOLOFT) 100 mg tablet Take 1 tablet by mouth once daily. Dose change, take 1 daily fluticasone (FLONASE) 50 mcg/actuation nasal spray Use 2 Sprays in each nostril once daily. Rinse mouth after use. benzonatate (TESSALON PERLE) 100 mg capsule Take 1-2 capsules by mouth three times a day as needed. sod bicarb-sod chlor-neti pot (NEILMED NASAFLO) pkdv 1 Each by sinus irrigation route two times a day as needed (for sinus congestion and drainage). hydrOXYzine HCl (ATARAX) 10 mg tablet Take 1-2 tablets by mouth three times a day as needed for anxiety. buPROPion XL (WELLBUTRIN XL) 150 mg 24 hr tablet Take 1 tablet by mouth once daily. ondansetron orally disintegrating (ZOFRAN ODT) 4 mg disintegrating tablet Take 1 tablet by mouth every 6 hours as needed for nausea/vomiting. cholecalciferol (VITAMIN D3) 5,000 unit tab Take 1 tablet by mouth once daily. Magnesium 250 mg tab Take 2 tablets by mouth once daily. for anxiety / depression ibuprofen (MOTRIN) 200 mg tablet Take 4 tablets by mouth every 8 hours as needed for pain (headache). Take with food. albuterol HFA (PROAIR HFA) 90 mcg/actuation inhaler Inhale 2 Puffs as instructed every 6 hours as needed. No current facility-administered medications for this visit. Allergies As of Date: 05/16/2024 Allergen Noted Reaction MOLD 09/18/2019 Other: See Comments SEASONAL ALLERGIES 07/02/2020 Other: See Comments Fully Assessed 05/16/2024 REVIEW OF SYSTEMS Abdomen: A little menstrual cramping Allergies and current medication updated:Yes SENSITIVE EXAM: Sensitive exam not performed. EXAM: BP 113/68 Wt 256 lb (116.1kg) LMP 05/12/2024 GENERAL: pleasant, female in no apparent distress DERMATOLOGY: [place] CHEST: Normal inspiratory effort NEURO: alert and oriented x3,exam grossly non-focal Asses (more content not included)...[facility]04-11-2025 History of Present illness Narrative* Adriana Clark, MARQUISE.AIR DEFENCE OFFICER - 05/16/2024 12:59 PM EDT Solar Lab Technician offered: Patient declines. Sasha Rachel is a 39 year old female who presents for problem visit ED follow- up HMB HPI: [facility] ED visit last night for HMB. CBC WNL Evaluated 04/24/2024 for HMB after stopping LAISHA. Sprintec restarted 04/24/2024 and bleeding slowed toa stop over the next week. Bleeding started 5 days ago becoming heavy yesterday and started passingclots larger than the size of her hand. Bleeding has slowed a little. Pelvic ultrasound today Impression Anteverted uterus with thickened endometrium. There is a hyperechoic focus with vascular stalk within the endometrium likely representing a single large polyp, 29 mm x 18 mm x 11 mm. No focal myometrial lesions Right Ovary is not visualized. Left Ovary is normal. Cul de sac is normal with no free fluid. OB History Gravida1 Para1 Term1 Preterm0 AB0 Living1 SAB0 IAB0 Ectopic0 Multiple0 Live Births1 Sausage Stringer History LMP: 05/12/2024 (Within Days), Having periods Age at Menarche: Age at First : Age at Menopause: Sausage Stringer History Comments: Sexual Activity: Yes; Male Contraception: No contraception data on record PAST MEDICAL HISTORY Diagnosis Date Abnormal Pap smear of cervix 2004 Allergic rhinitis due to other allergen Depressive disorder, not elsewhere classified Fibromyalgia Food poisoning 2014 Irritable bowel syndrome Myalgia and myositis, unspecified Other chronic sinusitis PAST SURGICAL HISTORY Procedure Laterality Date HYSTEROSCOPY BX ENDOMETRIUM&/POLYPC W/WO D&C 09/18/2019 hysteroscopy D&C for AUP TONSILLECTOMY & ADENOIDECTOMY AGE 12/> 1996 FAMILY HISTORY Problem Relation Age of Onset Breast Cancer Mother other (hypercholesterolemia) Mother diet controlled Obesity Mother other (hysterectomy) Mother Parkinson s Disease Father Prostate Cancer Father Obesity Father other (overweight) Sister Heart Maternal Grandmother Obesity Maternal Grandmother Psychiatry Maternal Grandfather Obesity Maternal Grandfather Hypertension Paternal Grandmother Heart Paternal Grandmother Obesity Paternal Grandmother Heart Paternal Grandfather Obesity Paternal Grandfather Autism Son Social History Tobacco Use Smoking status: Never Smokeless tobacco: Never Vaping Use Vaping status: Never Used Substance Use Topics Alcohol use: Yes Comment: Occasionally, but not while Drug use: No Current Outpatient Medications Medication Sig norgestimate 0.25 mg-ethinyl estradiol 35 mcg (SPRINTEC) 0.25-35 mg-mcg per tablet Take 1 tablet bymouth once daily. albuterol HFA (PROVENTIL HFA, VENTOLIN HFA) 90 mcg/actuation inhaler Inhale 2 Puffs as instructed every 6 hours as needed for wheezing/shortness of breath. Beueazfeubufivc-Mmbvmhimw-UL (BROMFED DM) 2-30-10 mg/5 mL syrup Take 5 mL by mouth four times a dayas needed. fluticasone (FLONASE) 50 mcg/actuation nasal spray Use 2 Sprays in each nostril once daily. Rinse mouth after use. sertraline (ZOLOFT) 100 mg tablet Take 1 tablet by mouth once daily. Dose change, take 1 daily fluticasone (FLONASE) 50 mcg/actuation nasal spray Use 2 Sprays in each nostril once daily. Rinse mouth after use. benzonatate (TESSALON PERLE) 100 mg capsule Take 1-2 capsules by mouth three times a day as needed. sod bicarb-sod chlor-neti pot (NEILMED NASAFLO) pkdv 1 Each by sinus irrigation route two times a day as needed (for sinus congestion and drainage). hydrOXYzine HCl (ATARAX) 10 mg tablet Take 1-2 tablets by mouth three times a day as needed for anxiety. buPROPion XL (WELLBUTRIN XL) 150 mg 24 hr tablet Take 1 tablet by mouth once daily. ondansetron orally disintegrating (ZOFRAN ODT) 4 mg disintegrating tablet Take 1 tablet by mouth every 6 hours as needed for nausea/vomiting. cholecalciferol (VITAMIN D3) 5,000 unit tab Take 1 tablet by mouth once daily. Magnesium 250 mg tab Take 2 tablets by mouth once daily. for anxiety / depression ibuprofen (MOTRIN) 200 mg tablet Take 4 tablets by mouth every 8 hours as needed for pain (headache). Take with food. albuterol HFA (PROAIR HFA) 90 mcg/actuation inhaler Inhale 2 Puffs as instructed every 6 hours as needed. No current facility-administered medications for this visit. Allergies As of Date: 05/16/2024 Allergen Noted Reaction MOLD 09/18/2019 Other: See Comments SEASONAL ALLERGIES 07/02/2020 Other: See Comments Fully Assessed 05/16/2024 REVIEW OF SYSTEMS Abdomen: A little menstrual cramping Allergies and current medication updated:Yes SENSITIVE EXAM: Sensitive exam not performed. EXAM: BP 113/68 Wt 256 lb (116.1kg) LMP 05/12/2024 GENERAL: pleasant, female in no apparent distress DERMATOLOGY: [place] CHEST: Normal inspiratory effort NEURO: alert and oriented x3,exam grossly non-focal Assessment & Plan Abnormal uterine bleeding due to endometrial polyp - Case discussed with Dr. Zavaleta. Surgical worksheet completed for D&C, endometrial polypectomy, insertion of either Mirena or Liletta IUD and given to scale adjuster. Orders: norethindrone (AYGESTIN) 5 mg tablet; Take 1 tablet by mouth as directed. 1 tablet 3 times daily until bleeding stops then twice daily for 2 days then 1 tablet daily until surgery All questions answered. Follow-up as needed. Preop appointment will be scheduled with surgeon. Adriana Clark APRN.CNP Medical Decision Making: Data: Unique test result(s) reviewed: 1 Independent interpretation of test from other physician/QHCP Risk: Moderate: Decision on minor surgery w/ risk factors, Drug management and Moderate risk from testing/treatment Medical Decision Making Level: 4 - Moderate documented in this encounterCenterville04-11-2025 NoteHNO ID: [id number] Author: JENNIFER VAN MD Service: ? Author Type: Physician Type: Progress Notes Filed: 05/16/2024 12:56 Note Text: Transvaginal and abdominal pelvic ultrasound performed. Results under imaging tab. Jennifer Van [facility]04-11-2025 History of Present illness Narrative* Jennifer Van MD - 05/16/2024 12:56 PM EDT Transvaginal and abdominal pelvic ultrasound performed. Results under imaging tab. Jennifer Van MD documented in this encounterCenterville04-11-2025 Telephone encounter Note * Telephone Encounter - Sujit Bass RN - 05/16/2024 9:46 AM EDT Pt notified AG filed pelvic US order and appt is scheduled for 11am today and AG will see her at 1pm today. Advised Pt that if she would experience CP, shortness of breath, dizziness, light headedness with the amount of bleeding that she is having, then we would advise that she return to the ER. Ptvoiced understanding. Sujit Bass RN [place]04-11-2025 Miscellaneous Notes* Telephone Encounter - Sujit Bass RN - 05/16/2024 9:46 AM EDT Pt notified AG filed pelvic US order and appt is scheduled for 11am today and AG will see her at 1pm today. Advised Pt that if she would experience CP, shortness of breath, dizziness, light headedness with the amount of bleeding that she is having, then we would advise that she return to the ER. Ptvoiced understanding. Sujit Bass RN * Telephone Encounter - Sujit Bass RN - 05/16/2024 8:11 AM EDT Went to [facility] ER for vaginal bleeding/clotting (bigger than her hand) q15 minutes. ER talked to OB Marlon/c and advised Pt to call office this AM to get an appt and ultrasound. Pt states labs were completed and WNL, but nothing else was done as she was told to f/u in office amelia. Pt last seen in office 04/24/24 by AG for abnormal uterine bleeding. Pelvic US order pending & 1100am for today placed on hold if appropriate. 1pm appt spot booked to see AG. Pt agreeable to space between appointments as she just wants to have this addressed. Please advise. Sujit Bass RN documented in this encounterCenterville04-11-2025 Telephone encounter Note * Telephone Encounter - Sujit Bass RN - 05/16/2024 8:11 AM EDT Went to [facility] ER for vaginal bleeding/clotting (bigger than her hand) q15 minutes. ER talked to OB Marlon/c and advised Pt to call office this AM to get an appt and ultrasound. Pt states labs were completed and WNL, but nothing else was done as she was told to f/u in office amelia. Pt last seen in office 04/24/24 by AG for abnormal uterine bleeding. Pelvic US order pending & 1100am for today placed on hold if appropriate. 1pm appt spot booked to see AG. Pt agreeable to space between appointments as she just wants to have this addressed. Please advise. Sujit Bass RN [place]04-11-2025 Telephone encounter Note* Telephone Encounter - Ivan Clements RN - 05/16/2024 12:43 AM EDT Patient calling requesting that previous NOC encounter be sent to [facility] ER so they know that she is coming. Patient denies any new or worsening symptoms of which a provider is not aware: Yes. Patient was previously triaged 05/16/24 at 12:40 and was given an ED Now/PCP triage disposition. Patient was advised that NOC does not alert ERs of patient's arrivals. GO TO THE EMERGENCY ROOM OR CALL 911 IF: * You develop any new symptoms * Your condition worsens * You are concerned or anxious about your condition for any other reason. [place]04-11-2025 Miscellaneous Notes* Telephone Encounter - Ivan Clements RN - 05/16/2024 12:43 AM EDT Patient calling requesting that previous NOC encounter be sent to [facility] ER so they know that she is coming. Patient denies any new or worsening symptoms of which a provider is not aware: Yes. Patient was previously triaged 05/16/24 at 12:40 and was given an ED Now/PCP triage disposition. Patient was advised that NOC does not alert ERs of patient's arrivals. GO TO THE EMERGENCY ROOM OR CALL 911 IF: * You develop any new symptoms * Your condition worsens * You are concerned or anxious about your condition for any other reason. documented in this encounterCenterville04-11-2025 Telephone encounter Note * Telephone Encounter - Alanna Cheney RN - 05/16/2024 12:27 AM EDT Reason for Call: Heavy vaginal bleeding Outcome: Go to the ED/PCP triage Patient will go to [facility] ED foe evaluation and treatment Reason for Disposition SEVERE vaginal bleeding (e.g., soaking 2 pads or tampons per hour and present 2 or more hours; 1 menstrual cup every 2 hours) Answer Assessment - Initial Assessment Questions 1. BLEEDING SEVERITY: Severe, with heavy clots that has been increasing over the past couple hours.Patient is concerned with the numbr and size of the clots being passed. 2. ONSET: 3-4 days ago has increased since the started 3. MENSTRUAL PERIOD: 2-3 weeks ago , normal flow 4. REGULARITY: have not been regular 4-5 months OB is aware 5. ABDOMEN PAIN:5/10 tylenol 6. : no 7. :no 8. HORMONE MEDICINES: on control has been on it for 2 weeks 9. BLOOD THINNER MEDICINES:No 10. CAUSE: unknown - patient denies any shortness of breath or weakness/dizziness at this time. 11. HEMODYNAMIC STATUS: tired for 3-4 days 12. OTHER SYMPTOMS: No other symptoms Protocols used: Vaginal Bleeding - [id number] [place]04-11-2025 Miscellaneous Notes* Telephone Encounter - Alanna Cheney RN - 05/16/2024 12:27 AM EDT Reason for Call: Heavy vaginal bleeding Outcome: Go to the ED/PCP triage Patient will go to [facility] ED foe evaluation and treatment Reason for Disposition SEVERE vaginal bleeding (e.g., soaking 2 pads or tampons per hour and present 2 or more hours; 1 menstrual cup every 2 hours) Answer Assessment - Initial Assessment Questions 1. BLEEDING SEVERITY: Severe, with heavy clots that has been increasing over the past couple hours.Patient is concerned with the numbr and size of the clots being passed. 2. ONSET: 3-4 days ago has increased since the started 3. MENSTRUAL PERIOD: 2-3 weeks ago , normal flow 4. REGULARITY: have not been regular 4-5 months OB is aware 5. ABDOMEN PAIN:510 tylenol 6. : no 7. :no 8. HORMONE MEDICINES: on control has been on it for 2 weeks 9. BLOOD THINNER MEDICINES:No 10. CAUSE: unknown - patient denies any shortness of breath or weakness/dizziness at this time. 11. HEMODYNAMIC STATUS: tired for 3-4 days 12. OTHER SYMPTOMS: No other symptoms Protocols used: Vaginal Bleeding - [id number] documented in this encounterCenterville04-08-2025 NoteHNO ID: [id number] Author: ?, ?, ? Service: ? Author Type: ? Type: Progress Notes Filed: 05/13/2024 09:45 Note Text: Sleep Study Check-In Documentation Date: May 13, 2024 Name: Sasha Rachel Comments: HST was returned in working order with all sleep questionnaires [facility] History of Present illness Narrative* Wm Schmitt - 05/13/2024 9:45 AM EDT Sleep Study Check-In Documentation Date: May 13, 2024 Name: Sasha Rachel Comments: HST was returned in working order with all sleep questionnaires Wm Schmitt * Tonya Green - 05/07/2024 5:46 PM EDT Nomad# [id number] , +GPS Date shipped out: 05/08/2024 SENT FEDEX DELIVERY - FEDEX RETURN SENT TO [facility]: [address] [place] [id number] Tracking mailout: [id number] [id number] Tracking return: [phone] [id number] * Jennifer Mendoza III, PhD - 05/07/2024 3:06 PM EDT May 07, 2024 Standing PSG Orders signed in the last 90 days None Future PSG Orders signed in the last 90 days Ordered Auth. provider HOME SLEEP APNEA TEST (HSAT) [[id number]] 04/01/24 Hung Rivero MD Assoc. diagnoses: Class 2 obesity with body mass index (BMI) of 37.0 to 37.9 in adult, unspecified obesity type, unspecified whether serious comorbidity present [E66.812, Z68.37], Snoring [R06.83], Daytime sleepiness [R40.0] Q: Indications: A: Obstructive sleep apnea Q: STOP-BANG conditions - Select All That Apply: A: BMI > 35 kg/m2 A2: SNORING that is loud or disruptive A3: TIREDNESS, fatigue or sleepiness during the day Q: Current use of supplemental oxygen during sleep period?: A: No All Prior Sleep Studies (past 365 days) 04/01/2024 18:34 Sleep Studies HOME SLEEP APNEA TEST (HSAT) HOME SLEEP APNEA TEST (HSAT) Order Status: Ordered, Future Expires: 04/01/25 BMI Readings from Last 2 Encounters: 04/24/24 : 38.88 kg/m 04/24/24 : 38.62 kg/m PAST MEDICAL HISTORY Diagnosis Date Abnormal Pap smear of cervix 2004 Allergic rhinitis due to other allergen Depressive disorder, not elsewhere classified Fibromyalgia Food poisoning 2014 Irritable bowel syndrome Myalgia and myositis, unspecified Other chronic sinusitis The medical record was reviewed to determine if the proposed sleep study conforms to the AASM Practice Parameters for the Indications for Polysomnography and Related Procedures, or if the sleep studyis indicated for other reasons. Indications for study: HELDER suspected without comorbid medical or sleep disorders Sleep study to be performed: Home Sleep Apnea Test (HSAT) Special instructions: None-follow laboratory protocol [facility] Staff Note: I have read the above protocol, edited as needed, and agree to the plan. Jennifer Mendoza III, PhD 4:36 PM, 05/07/2024 * Med Green - 05/07/2024 2:49 PM EDT May 07, 2024 An order has been received for Home Sleep Apnea Test (HSAT) from Hung Miranda a B. [facility] Staff. Visit prep complete. Comments :No The sleep study is scheduled for 05/09/24. Insurance: Payor: JOHN / Plan: BLUE ACCESS PPO / Product Type: PPO / Payer/Plan Subscr Sex Relation Sub. Ins. ID Effective Group Num 1. JOHN [place]AY* SREE RACHEL 1985 Male Spouse [id number] 02/05/22 [id number] [address] Med Peter documented in this encounterCenterville04-02-2025 NoteHNO ID: [id number] Author: ?, ?, ? Service: ? Author Type: ? Type: Progress Notes Filed: 05/13/2024 09:45 Note Text: Nomad# [id number] , +GPS Date shipped out: 05/08/2024 SENT FEDEX DELIVERY - FEDEX RETURN SENT TO [facility]: [address] [place] [id number] Tracking mailout: [phone] [id number] Tracking return: [phone] [id number]04-02-2025 NoteHNO ID: [id number] Author: JENNIFER MENDOZA III, PhD Service: ? Author Type: Physician Type: Progress Notes Filed: 05/13/2024 09:45 Note Text: May 07, 2024 Standing PSG Orders signed in the last 90 days None Future PSG Orders signed in the last 90 days Ordered Auth. provider HOME SLEEP APNEA TEST (HSAT) [[id number]] 04/01/24 Hung Rivero MD Assoc. diagnoses: Class 2 obesity with body mass index (BMI) of 37.0 to 37.9 in adult, unspecified obesity type, unspecified whether serious comorbidity present [E66.812, Z68.37], Snoring [R06.83], Daytime sleepiness [R40.0] Q: Indications: A: Obstructive sleep apnea Q: STOP-BANG conditions - Select All That Apply: A: BMI > 35 kg/m2 A2: SNORING that is loud or disruptive A3: TIREDNESS, fatigue or sleepiness during the day Q: Current use of supplemental oxygen during sleep period?: A: No All Prior Sleep Studies (past 365 days) 04/01/2024 18:34 Sleep Studies HOME SLEEP APNEA TEST (HSAT) HOME SLEEP APNEA TEST (HSAT) Order Status: Ordered, Future Expires: 04/01/25 BMI Readings from Last 2 Encounters: 04/24/24 : 38.88 kg/m? 04/24/24 : 38.62 kg/m? PAST MEDICAL HISTORY Diagnosis Date Abnormal Pap smear of cervix 2004 Allergic rhinitis due to other allergen Depressive disorder, not elsewhere classified Fibromyalgia Food poisoning 2014 Irritable bowel syndrome Myalgia and myositis, unspecified Other chronic sinusitis The medical record was reviewed to determine if the proposed sleep study conforms to the AASM Practice Parameters for the Indications for Polysomnography and Related Procedures, or if the sleep study is indicated for other reasons. Indications for study: HELDER suspected without comorbid medical or sleep disorders Sleep study to be performed: Home Sleep Apnea Test (HSAT) Special instructions: None-follow laboratory protocol [facility] Staff Note: I have read the above protocol, edited as needed, and agree to the plan. Jennifer Mendoza III, PhD 4:36 PM, 05/07/2024[facility]04-02-2025 NoteHNO ID: [id number] Author: ?, ?, ? Service: ? Author Type: ? Type: Progress Notes Filed: 05/13/2024 09:45 Note Text: May 07, 2024 An order has been received for Home Sleep Apnea Test (HSAT) from Hung Miranda a B. [facility] Staff. Visit prep complete. Comments :No The sleep study is scheduled for 05/09/24. Insurance: Payor: ANTHEM / Plan: BLUE ACCESS PPO / Product Type: PPO / Payer/Plan Subscr Sex Relation Sub. Ins. ID Effective Group Num 1. ANTHEM - BLUE* SREE RACHEL 1985 Male Spouse [id number] 02/05/22 [id number] [address] [facility]03-23-2025 NoteIMPRESSION: Mildly progressive upper lumbar degenerative disc disease Factory Engineer: AYSE Transcribe Date/Time: Apr 27 2024 12:00P Dictated by : ERIC ARREAGA MD This examination was interpreted and the report reviewed and electronically signed by: ERIC ARREAGA MD on Apr 27 2024 12:02PM [facility] DIVISION OF [id number] History of Present illness Narrative* Jagruti Corbin RT(R) - 04/24/2024 11:00 AM EDT Radiology Service Progress Note PATIENT NAME: Sasha Rachel DATE OF SERVICE: April 24, 2024 TIME: 11:05 AM PATIENT IDENTITY VERIFICATION COMPLETED USING TWO (2) IDENTIFIERS: Name and Date of confirmedby patient verbally. FALL SCREENING: Has the patient had 2 falls in the last year or 1 fall with injury or currently using an Ambulatory Assistive Device (Walker, Cane, Wheelchair, Crutches, etc.)? No PATIENT GENDER DATA: Assigned female at . status: : No status:NO. PATIENT RELEVANT IMPLANT DATA REVIEWED: Not Applicable PATIENT PRESENTS WITH AN IMPLANTABLE OR ATTACHED AIRCRAFT LANDING GEAR INSPECTOR: No RADIOLOGY DEPARTMENT: General X-ray: Exam(s) Completed: Spine X-Ray(s): Lumbar AP / LAT / L5-S1 / FLEX-EXT PERIPHERAL IV DATA: Not applicable SIGNED BY: RT Rodríguez(R) April 24, 2024 11:10 AM documented in this encounterCenterville03-20-2025 NoteHNO ID: [id number] Author: JAGRUTI CORBIN RT(R) Service: Radiology Author Type: Technologist Type: Progress Notes Filed: 04/24/2024 11:10 Note Text: Radiology Service Progress Note PATIENT NAME: Sasha Rachel DATE OF SERVICE: April 24, 2024 TIME: 11:05 AM PATIENT IDENTITY VERIFICATION COMPLETED USING TWO (2) IDENTIFIERS: Name and Date of confirmed by patient verbally. FALL SCREENING: Has the patient had 2 falls in the last year or 1 fall with injury or currently using an Ambulatory Assistive Device (Walker, Cane, Wheelchair, Crutches, etc.)? No PATIENT GENDER DATA: Assigned female at . status: : No status: NO. PATIENT RELEVANT IMPLANT DATA REVIEWED: Not Applicable PATIENT PRESENTS WITH AN IMPLANTABLE OR ATTACHED AIRCRAFT LANDING GEAR INSPECTOR: No RADIOLOGY DEPARTMENT: General X-ray: Exam(s) Completed: Spine X-Ray(s): Lumbar AP / LAT / L5-S1 / FLEX-EXT PERIPHERAL IV DATA: Not applicable SIGNED BY: RT Rodríguez(Shon) April 24, 2024 11:10 [facility]03-20-2025 History of Present illness Narrative* Jagruti Corbin RT(R) - 04/24/2024 10:50 AM EDT Radiology Service Progress Note PATIENT NAME: Sasha Rachel DATE OF SERVICE: April 24, 2024 TIME: 11:00 AM PATIENT IDENTITY VERIFICATION COMPLETED USING TWO (2) IDENTIFIERS: Name and Date of confirmedby patient verbally. FALL SCREENING: Has the patient had 2 falls in the last year or 1 fall with injury or currently using an Ambulatory Assistive Device (Walker, Cane, Wheelchair, Crutches, etc.)? No PATIENT GENDER DATA: Assigned female at . status: : No status:NO. PATIENT RELEVANT IMPLANT DATA REVIEWED: Not Applicable PATIENT PRESENTS WITH AN IMPLANTABLE OR ATTACHED AIRCRAFT LANDING GEAR INSPECTOR: No RADIOLOGY DEPARTMENT: General X-ray: Exam(s) Completed: Chest X-Ray PERIPHERAL IV DATA: Not applicable SIGNED BY: RT Rodríguez(Shon) April 24, 2024 11:00 AM documented in this encounterCenterville03-20-2025 NoteHNO ID: [id number] Author: JAGRUTI CORBIN RT(R) Service: Radiology Author Type: Technologist Type: Progress Notes Filed: 04/24/2024 11:09 Note Text: Radiology Service Progress Note PATIENT NAME: Sasha Rachel DATE OF SERVICE: April 24, 2024 TIME: 11:00 AM PATIENT IDENTITY VERIFICATION COMPLETED USING TWO (2) IDENTIFIERS: Name and Date of confirmed by patient verbally. FALL SCREENING: Has the patient had 2 falls in the last year or 1 fall with injury or currently using an Ambulatory Assistive Device (Walker, Cane, Wheelchair, Crutches, etc.)? No PATIENT GENDER DATA: Assigned female at . status: : No status: NO. PATIENT RELEVANT IMPLANT DATA REVIEWED: Not Applicable PATIENT PRESENTS WITH AN IMPLANTABLE OR ATTACHED AIRCRAFT LANDING GEAR INSPECTOR: No RADIOLOGY DEPARTMENT: General X-ray: Exam(s) Completed: Chest X-Ray PERIPHERAL IV DATA: Not applicable SIGNED BY: RT Rodríguez(Shon) April 24, 2024 11:00 [facility]03-20-2025 NoteHNO ID: [id number] Author: BRIDGET REYES APRN.AIR DEFENCE OFFICER Service: ? Author Type: Nurse Practitioner Type: Progress Notes Filed: 04/24/2024 11:32 Note Text: [facility] Subjective Sasha Rachel is a 39 year old female. No chief complaint on file. Patient came in with complaints of cough congestion patient says has been about 6 days seems to be getting worse. Patient says she is more short of breath now than she was. Patient says when she lays flat it is worse and when she is sitting up. Patient was exposed to pneumonia about a week ago. Patient denies any other symptoms. The history is provided by the patient. No speech and language tutor was used. Review of Systems Constitutional: Negative. HENT: Negative. Objective BP 140/72 Pulse 93 Temp 36.7 ?C (98.1 ?F) Resp 16 Wt 116 kg (255 lb 11.7 oz) LMP 04/04/2024 (Within Days) SpO2 97% BMI 38.88 kg/m? Physical Exam Constitutional: Appearance: Normal appearance. HENT: Right Ear: Tympanic membrane, ear canal and external ear normal. Left Ear: Tympanic membrane, ear canal and external ear normal. Mouth/Throat: Mouth: Mucous membranes are moist. Pharynx: Oropharynx is clear. Eyes: Pupils: Pupils are equal, round, and reactive to light. Cardiovascular: Rate and Rhythm: Normal rate and regular rhythm. Heart sounds: Normal heart sounds. Pulmonary: Effort: Pulmonary effort is normal. Breath sounds: Wheezing present. Neurological: Mental Status: She is alert. PAST MEDICAL HISTORY Diagnosis Date Abnormal Pap smear of cervix 2004 Allergic rhinitis due to other allergen Depressive disorder, not elsewhere classified Fibromyalgia Food poisoning 2014 Irritable bowel syndrome Myalgia and myositis, unspecified Other chronic sinusitis PAST SURGICAL HISTORY Procedure Laterality Date HYSTEROSCOPY BX ENDOMETRIUMAND/POLYPC W/WO DANDC 09/18/2019 hysteroscopy [facility] for AUP TONSILLECTOMY AND ADENOIDECTOMY AGE 12/> 1996 ALLERGIES Mold and Seasonal Allergies MEDICATIONS norgestimate 0.25 mg-ethinyl estradiol 35 mcg (SPRINTEC) 0.25-35 mg-mcg per tablet Take 1 tablet by mouth once daily. methylPREDNISolone (MEDROL, ASHLEY,) 4 mg Dose-Pack As instructed per package sertraline (ZOLOFT) 100 mg tablet Take 1 tablet by mouth once daily. Dose change, take 1 daily fluticasone (FLONASE) 50 mcg/actuation nasal spray Use 2 Sprays in each nostril once daily. Rinse mouth after use. benzonatate (TESSALON PERLE) 100 mg capsule Take 1-2 capsules by mouth three times a day as needed. sod bicarb-sod chlor-neti pot (NEILMED NASAFLO) pkdv 1 Each by sinus irrigation route two times a day as needed (for sinus congestion and drainage). hydrOXYzine HCl (ATARAX) 10 mg tablet Take 1-2 tablets by mouth three times a day as needed for anxiety. buPROPion XL (WELLBUTRIN XL) 150 mg 24 hr tablet Take 1 tablet by mouth once daily. ondansetron orally disintegrating (ZOFRAN ODT) 4 mg disintegrating tablet Take 1 tablet by mouth every 6 hours as needed for nausea/vomiting. cetirizine (ZYRTEC) 10 mg tablet Take 1 tablet by mouth once daily. cholecalciferol (VITAMIN D3) 5,000 unit tab Take 1 tablet by mouth once daily. Magnesium 250 mg tab Take 2 tablets by mouth once daily. for anxiety / depression ibuprofen (MOTRIN) 200 mg tablet Take 4 tablets by mouth every 8 hours as needed for pain (headache). Take with food. albuterol HFA (PROAIR HFA) 90 mcg/actuation inhaler Inhale 2 Puffs as instructed every 6 hours as needed. FAMILY HISTORY Problem Relation Age of Onset Breast Cancer Mother other (hypercholesterolemia) Mother diet controlled Obesity Mother other (hysterectomy) Mother Parkinson?s Disease Father Prostate Cancer Father Obesity Father other (overweight) Sister Heart Maternal Grandmother Obesity Maternal Grandmother Psychiatry Maternal Grandfather Obesity Maternal Grandfather Hypertension Paternal Grandmother Heart Paternal Grandmother Obesity Paternal Grandmother Heart Paternal Grandfather Obesity Paternal Grandfather Autism Son Social History Tobacco Use Smoking status: Never Smokeless tobacco: Never Vaping Use Vaping status: Never Used Substance Use Topics Alcohol use: Yes Comment: Occasionally, but not while Drug use: No {ASSESSMENT/PLAN: 1. Acute cough - ICD9: 786.2, ICD10: R05.1 (primary diagnosis) - XR CHEST 2V FRONTAL/LAT - neg - ALBUTEROL SULFATE HFA 90 MCG/ACTUATION AEROSOL INHALER - [id number] 2 MG-30 MG-10 MG/5 ML ORAL SYRUP 2. Sinus congestion - ICD9: 478.19, ICD10: R09.81 - FLUTICASONE PROPIONATE 50 MCG/ACTUATION NASAL SPRAY,SUSPENSION - DOXYCYCLINE HYCLATE 100 MG TABLET Patient was given a delayed antibiotic prescription. Patient can pick it up in a few days if she still having symptoms. Patient was educated about all the other medication. Patient will not mix any avkm-edl-dbzffyk cold medicines or Zyrtec or hydroxyz (more content not included)...[facility] 04-24-2024 History of Present illness Narrative* Bridget Reyes APRN.[facility] - 04/24/2024 10:29 AM EDT [facility] Subjective Sasha Rachel is a 39 year old female. No chief complaint on file. Patient came in with complaints of cough congestion patient says has been about 6 days seems to be getting worse. Patient says she is more short of breath now than she was. Patient says when she laysflat it is worse and when she is sitting up. Patient was exposed to pneumonia about a week ago. Patient denies any other symptoms. The history is provided by the patient. No speech and language tutor was used. Review of Systems Constitutional: Negative. HENT: Negative. Objective BP 140/72 Pulse 93 Temp 36.7 C (98.1 F) Resp 16 Wt 116 kg (255 lb 11.7 oz) LMP 04/04/2024(Within Days) SpO2 97% BMI 38.88 kg/m Physical Exam Constitutional: Appearance: Normal appearance. HENT: Right Ear: Tympanic membrane, ear canal and external ear normal. Left Ear: Tympanic membrane, ear canal and external ear normal. Mouth/Throat: Mouth: Mucous membranes are moist. Pharynx: Oropharynx is clear. Eyes: Pupils: Pupils are equal, round, and reactive to light. Cardiovascular: Rate and Rhythm: Normal rate and regular rhythm. Heart sounds: Normal heart sounds. Pulmonary: Effort: Pulmonary effort is normal. Breath sounds: Wheezing present. Neurological: Mental Status: She is alert. PAST MEDICAL HISTORY Diagnosis Date Abnormal Pap smear of cervix 2004 Allergic rhinitis due to other allergen Depressive disorder, not elsewhere classified Fibromyalgia Food poisoning 2014 Irritable bowel syndrome Myalgia and myositis, unspecified Other chronic sinusitis PAST SURGICAL HISTORY Procedure Laterality Date HYSTEROSCOPY BX ENDOMETRIUM&/POLYPC W/WO D&C 09/18/2019 hysteroscopy D&C for AUP TONSILLECTOMY & ADENOIDECTOMY AGE 12/> 1996 ALLERGIES Mold and Seasonal Allergies MEDICATIONS norgestimate 0.25 mg-ethinyl estradiol 35 mcg (SPRINTEC) 0.25-35 mg-mcg per tablet Take 1 tablet bymouth once daily. methylPREDNISolone (MEDROL, ASHLEY,) 4 mg Dose-Pack As instructed per package sertraline (ZOLOFT) 100 mg tablet Take 1 tablet by mouth once daily. Dose change, take 1 daily fluticasone (FLONASE) 50 mcg/actuation nasal spray Use 2 Sprays in each nostril once daily. Rinse mouth after use. benzonatate (TESSALON PERLE) 100 mg capsule Take 1-2 capsules by mouth three times a day as needed. sod bicarb-sod chlor-neti pot (NEILMED NASAFLO) pkdv 1 Each by sinus irrigation route two times a day as needed (for sinus congestion and drainage). hydrOXYzine HCl (ATARAX) 10 mg tablet Take 1-2 tablets by mouth three times a day as needed for anxiety. buPROPion XL (WELLBUTRIN XL) 150 mg 24 hr tablet Take 1 tablet by mouth once daily. ondansetron orally disintegrating (ZOFRAN ODT) 4 mg disintegrating tablet Take 1 tablet by mouth every 6 hours as needed for nausea/vomiting. cetirizine (ZYRTEC) 10 mg tablet Take 1 tablet by mouth once daily. cholecalciferol (VITAMIN D3) 5,000 unit tab Take 1 tablet by mouth once daily. Magnesium 250 mg tab Take 2 tablets by mouth once daily. for anxiety / depression ibuprofen (MOTRIN) 200 mg tablet Take 4 tablets by mouth every 8 hours as needed for pain (headache). Take with food. albuterol HFA (PROAIR HFA) 90 mcg/actuation inhaler Inhale 2 Puffs as instructed every 6 hours as needed. FAMILY HISTORY Problem Relation Age of Onset Breast Cancer Mother other (hypercholesterolemia) Mother diet controlled Obesity Mother other (hysterectomy) Mother Parkinson s Disease Father Prostate Cancer Father Obesity Father other (overweight) Sister Heart Maternal Grandmother Obesity Maternal Grandmother Psychiatry Maternal Grandfather Obesity Maternal Grandfather Hypertension Paternal Grandmother Heart Paternal Grandmother Obesity Paternal Grandmother Heart Paternal Grandfather Obesity Paternal Grandfather Autism Son Social History Tobacco Use Smoking status: Never Smokeless tobacco: Never Vaping Use Vaping status: Never Used Substance Use Topics Alcohol use: Yes Comment: Occasionally, but not while Drug use: No {ASSESSMENT/PLAN: 1. Acute cough - ICD9: 786.2, ICD10: R05.1 (primary diagnosis) - XR CHEST 2V FRONTAL/LAT - neg - ALBUTEROL SULFATE HFA 90 MCG/ACTUATION AEROSOL INHALER - [id number] 2 MG-30 MG-10 MG/5 ML ORAL SYRUP 2. Sinus congestion - ICD9: 478.19, ICD10: R09.81 - FLUTICASONE PROPIONATE 50 MCG/ACTUATION NASAL SPRAY,SUSPENSION - DOXYCYCLINE HYCLATE 100 MG TABLET Patient was given a delayed antibiotic prescription. Patient can pick it up in a few days if she still having symptoms. Patient was educated about all the other medication. Patient will not mix any cnrn-ldp-qchshqv cold medicines or Zyrtec or hydroxyzine with her Bromfed. Patient agreeable to care plan. Bridget Reyes APRN.CNP [facility] Procedures documented in this encounterCenterville03-20-2025 Instructions* Patient Instructions* Adriana Clark APRN.CNP - 04/24/2024 10:00 AM EDT Images from the original note were not included. Oral Contraceptives: The Combined (Estrogen + Progestin) Pill Beginning the Combined Pill In most packs, the first 21 pills have active ingredients and the last 7 are non-medicine containing pills (placebo) or they may contain iron. There will be bleeding during the week you are taking the placebo pills. There are also packs that contain 24 active medication pills and only 4 placebo pills. These are formulated to give you a shorter period. There are 2 ways to start the pill: Quick Start: Take your first pill as soon as you get the pack. Next period: Take your first pill soon after your next period begins. If you take your first pill up to 5 days after the start of your period, you are protected against right away. If you take your first pill more than 5 days after the start of your period, you should use condomsas back-up for the first 7 days. How Combined Hormonal Contraceptives Work Combined oral contraceptive ( control) pills contain hormones like the ones your body makes (estrogen + a progestin). These hormones stop your ovaries from releasing eggs (ovulating). If your ovary does not release an egg, you cannot get . It is important to remember that no method of control is 100% effective. The combined pill is 93% effective with typical use (how real people use it in real life compared to how people used it in medical studies). There are several advantages associated with the pill: it is highly effective with typical use, is easy to start and stop, may improve acne, will make periods more regular and less painful, may help improve anemia, and long-term use is associated with a reduced risk of ovarian and uterine cancer. Possible Side Effects It can take up to three months for your body to become adjusted to the combined pill. The more common side effects experienced now are breakthrough (unexpected) spotting or bleeding; nausea or vomiting; breast tenderness; and mild fluid retention. There is no long-term weight gain with the use of the combined pill. Most side effects resolve once you have been on the combined pill for three months. If these symptoms continue to occur after the first three months you should check with your physician to see if there is any physical cause and change to another control pill. Problems: Missed 1 pill: Take 2 pills the next day. Missed 2 pills: Take 2 pills the next day and 2 pills the following day. Also use another form of control (condoms) along with the pill for the rest of the month. Taking other medications: The control pill is less effective when you take the antibiotic rifampin, epilepsy (seizure) drugs such as phenytoin, carbamazepine, phenobarbital, topiramate, and some medications for HIV. Let your doctor know if you start taking any of these medications while on the pill. Symptoms to Notify Your Doctor with Immediately: The pill is considered safe for most people. Serious problems are rare. The symptoms below may indicate a serious problem: Pain in your chest or legs Continuous blurred vision Severe headaches Slurred speech Tingling or weakness on one side of your body Shortness of breath Swelling of one leg Refills of Control Pills You should see a health care provider every year for a refill of your prescription. If your prescription should before your next scheduled appointment, you can request a prescription extensionif you call or message during regular business hours about at least 1-2 weeks before you need to start the new package of pills. Some information adapted from [facility] For more information see [email or web address] combination control pills documented in this encounterCent[place]03-20-2025 NoteHNO ID: [id number] Author: ADRIANA CLARK APRN.AIR DEFENCE OFFICER Service: ? Author Type: Nurse Practitioner Type: Progress Notes Filed: 04/24/2024 20:32 Note Text: Solar Lab Technician offered: Patient declines. Sasha Rachel is a 39 year old female who presents for problem visit irregular menstrual cycle for 3 week(s). Spotting and now a heavy period for 3 weeks. HPI: Menses beginning of February. Daily pink spotting started the end of March and changed to normal heavy menstrual flow 2 days ago. Has passed some clots which usually happens when she is on prednisone which she started a couple of days ago. Has been under a lot of stress lately. Stopped taking LAISHA around February - unsure of exactly when. Stopped because menses were becoming so light. Usual menstrual cycle every 30 days lasting 4 days. Has not been sexually active for 6-8 months. 09/[address] [address] Nicole. No discrete endometrial polyp was noted. Pathology benign. OB History Gravida1 Para1 Term1 Preterm0 AB0 Living1 SAB0 IAB0 Ectopic0 Multiple0 Live Births1 Sausage Stringer History LMP: 04/04/2024 (Within Days), Having periods Age at Menarche: Age at First : Age at Menopause: Sausage Stringer History Comments: Sexual Activity: Yes; Male Contraception: No contraception data on record PAST MEDICAL HISTORY Diagnosis Date Abnormal Pap smear of cervix 2004 Allergic rhinitis due to other allergen Depressive disorder, not elsewhere classified Fibromyalgia Food poisoning 2014 Irritable bowel syndrome Myalgia and myositis, unspecified Other chronic sinusitis PAST SURGICAL HISTORY Procedure Laterality Date HYSTEROSCOPY BX ENDOMETRIUMAND/POLYPC W/WO DANDC 09/18/2019 hysteroscopy DANNY for AUP TONSILLECTOMY AND ADENOIDECTOMY AGE 12/> 1996 FAMILY HISTORY Problem Relation Age of Onset Breast Cancer Mother other (hypercholesterolemia) Mother diet controlled Obesity Mother Parkinson?s Disease Father Prostate Cancer Father Obesity Father other (overweight) Sister Heart Maternal Grandmother Obesity Maternal Grandmother Psychiatry Maternal Grandfather Obesity Maternal Grandfather Hypertension Paternal Grandmother Heart Paternal Grandmother Obesity Paternal Grandmother Heart Paternal Grandfather Obesity Paternal Grandfather Autism Son Social History Tobacco Use Smoking status: Never Smokeless tobacco: Never Vaping Use Vaping status: Never Used Substance Use Topics Alcohol use: Yes Comment: Occasionally, but not while Drug use: No Current Outpatient Medications Medication Sig methylPREDNISolone (MEDROL, ASHLEY,) 4 mg Dose-Pack As instructed per package sertraline (ZOLOFT) 100 mg tablet Take 1 tablet by mouth once daily. Dose change, take 1 daily fluticasone (FLONASE) 50 mcg/actuation nasal spray Use 2 Sprays in each nostril once daily. Rinse mouth after use. benzonatate (TESSALON PERLE) 100 mg capsule Take 1-2 capsules by mouth three times a day as needed. sod bicarb-sod chlor-neti pot (NEILMED NASAFLO) pkdv 1 Each by sinus irrigation route two times a day as needed (for sinus congestion and drainage). hydrOXYzine HCl (ATARAX) 10 mg tablet Take 1-2 tablets by mouth three times a day as needed for anxiety. buPROPion XL (WELLBUTRIN XL) 150 mg 24 hr tablet Take 1 tablet by mouth once daily. norgestimate 0.25 mg-ethinyl estradiol 35 mcg (SPRINTEC) 0.25-35 mg-mcg per tablet Take 1 tablet by mouth once daily. ondansetron orally disintegrating (ZOFRAN ODT) 4 mg disintegrating tablet Take 1 tablet by mouth every 6 hours as needed for nausea/vomiting. cetirizine (ZYRTEC) 10 mg tablet Take 1 tablet by mouth once daily. cholecalciferol (VITAMIN D3) 5,000 unit tab Take 1 tablet by mouth once daily. Magnesium 250 mg tab Take 2 tablets by mouth once daily. for anxiety / depression ibuprofen (MOTRIN) 200 mg tablet Take 4 tablets by mouth every 8 hours as needed for pain (headache). Take with food. albuterol HFA (PROAIR HFA) 90 mcg/actuation inhaler Inhale 2 Puffs as instructed every 6 hours as needed. No current facility-administered medications for this visit. Allergies As of Date: 04/24/2024 Allergen Noted Reaction MOLD 09/18/2019 Other: See Comments SEASONAL ALLERGIES 07/02/2020 Other: See Comments Fully Assessed 04/19/2024 REVIEW OF SYSTEMS Abdomen: No bloating, early satiety, indigestion, or increased flatulence. No abdominal pain, nausea, vomiting, diarrhea, or constipation. Allergies and current medication updated:Yes SENSITIVE EXAM: The sensitive examination was discussed with the Patient or Patient's Authorized Head Nurse. As applicable, any other physician, advance practice provider, medical student, or other health professional student that will be observing or involved in the sensitive examination for educational or training purposes was discussed with the Patient or Authorized Head Nurse. The Patient or Authorized Head Nurse has agreed t (more content not included)...[facility]03-20-2025 History of Present illness Narrative* Adriana Clark APRN.AIR DEFENCE OFFICER - 04/24/2024 9:23 AM EDT Solar Lab Technician offered: Patient declines. Sasha Rachel is a 39 year old female who presents for problem visit irregular menstrual cycle for 3 week(s). Spotting and now a heavy period for 3 weeks. HPI: Menses beginning of February. Daily pink spotting started the end of March and changed to normal heavy menstrual flow 2 days ago. Has passed some clots which usually happens when she is on prednisone which she started a couple of days ago. Has been under a lot of stress lately. Stopped taking LAISHA around February - unsure of exactly when. Stopped because menses were becoming solight. Usual menstrual cycle every 30 days lasting 4 days. Has not been sexually active for 6-8 months. 09/2019 Hysteroscopy D&C for KER[facility] Dr. Nicole. No discrete endometrial polyp was noted. Pathologybenign. OB History Gravida1 Para1 Term1 Preterm0 AB0 Living1 SAB0 IAB0 Ectopic0 Multiple0 Live Births1 Sausage Stringer History LMP: 04/04/2024 (Within Days), Having periods Age at Menarche: Age at First : Age at Menopause: Sausage Stringer History Comments: Sexual Activity: Yes; Male Contraception: No contraception data on record PAST MEDICAL HISTORY Diagnosis Date Abnormal Pap smear of cervix 2004 Allergic rhinitis due to other allergen Depressive disorder, not elsewhere classified Fibromyalgia Food poisoning 2015 Irritable bowel syndrome Myalgia and myositis, unspecified Other chronic sinusitis PAST SURGICAL HISTORY Procedure Laterality Date HYSTEROSCOPY BX ENDOMETRIUM&/POLYPC W/WO D&C 09/18/2019 hysteroscopy D&C for AUP TONSILLECTOMY & ADENOIDECTOMY AGE 12/> 1996 FAMILY HISTORY Problem Relation Age of Onset Breast Cancer Mother other (hypercholesterolemia) Mother diet controlled Obesity Mother Parkinson s Disease Father Prostate Cancer Father Obesity Father other (overweight) Sister Heart Maternal Grandmother Obesity Maternal Grandmother Psychiatry Maternal Grandfather Obesity Maternal Grandfather Hypertension Paternal Grandmother Heart Paternal Grandmother Obesity Paternal Grandmother Heart Paternal Grandfather Obesity Paternal Grandfather Autism Son Social History Tobacco Use Smoking status: Never Smokeless tobacco: Never Vaping Use Vaping status: Never Used Substance Use Topics Alcohol use: Yes Comment: Occasionally, but not while Drug use: No Current Outpatient Medications Medication Sig methylPREDNISolone (MEDROL, ASHLEY,) 4 mg Dose-Pack As instructed per package sertraline (ZOLOFT) 100 mg tablet Take 1 tablet by mouth once daily. Dose change, take 1 daily fluticasone (FLONASE) 50 mcg/actuation nasal spray Use 2 Sprays in each nostril once daily. Rinse mouth after use. benzonatate (TESSALON PERLE) 100 mg capsule Take 1-2 capsules by mouth three times a day as needed. sod bicarb-sod chlor-neti pot (NEILMED NASAFLO) pkdv 1 Each by sinus irrigation route two times a day as needed (for sinus congestion and drainage). hydrOXYzine HCl (ATARAX) 10 mg tablet Take 1-2 tablets by mouth three times a day as needed for anxiety. buPROPion XL (WELLBUTRIN XL) 150 mg 24 hr tablet Take 1 tablet by mouth once daily. norgestimate 0.25 mg-ethinyl estradiol 35 mcg (SPRINTEC) 0.25-35 mg-mcg per tablet Take 1 tablet bymouth once daily. ondansetron orally disintegrating (ZOFRAN ODT) 4 mg disintegrating tablet Take 1 tablet by mouth every 6 hours as needed for nausea/vomiting. cetirizine (ZYRTEC) 10 mg tablet Take 1 tablet by mouth once daily. cholecalciferol (VITAMIN D3) 5,000 unit tab Take 1 tablet by mouth once daily. Magnesium 250 mg tab Take 2 tablets by mouth once daily. for anxiety / depression ibuprofen (MOTRIN) 200 mg tablet Take 4 tablets by mouth every 8 hours as needed for pain (headache). Take with food. albuterol HFA (PROAIR HFA) 90 mcg/actuation inhaler Inhale 2 Puffs as instructed every 6 hours as needed. No current facility-administered medications for this visit. Allergies As of Date: 04/24/2024 Allergen Noted Reaction MOLD 09/18/2019 Other: See Comments SEASONAL ALLERGIES 07/02/2020 Other: See Comments Fully Assessed 04/19/2024 REVIEW OF SYSTEMS Abdomen: No bloating, early satiety, indigestion, or increased flatulence. No abdominal pain, nausea, vomiting, diarrhea, or constipation. Allergies and current medication updated:Yes SENSITIVE EXAM: The sensitive examination was discussed with the Patient or Patient's Authorized Head Nurse. As applicable, any other physician, advance practice provider, medical student, or other health professional student that will be observing or involved in the sensitive examination for educational or training purposes was discussed with the Patient or Authorized Head Nurse. The Patient or Authorized Head Nurse has agreed to proceed with the sensitive examination. (Sensitive examination includes inspection and/or palpation of the breasts, pelvis, prostate and anorectal regions). EXAM: BP 132/82 Wt 254 lb (115.2kg) LMP 04/04/2024 GENERAL: pleasant, female in no apparent distress CHEST: Normal inspiratory effort ABDOMEN: soft, non-tender, and no masses PELVIC: external genitalia normal, normal Bartholin's glands, urethra, [place]'s glands, no vulvar lesions, no cervical lesions, normal appearing perineal body and perianal region. Large amount menstrual blood in vault. BIMANUAL: uterus normal size, shape and consistency, no adnexal masses, and non-tender NEURO: alert and oriented x3,exam grossly non-focal ASSESSMENT/PLAN: 1. Abnormal uterine bleeding (AUB) - ICD9: 626.9, ICD10: N93.9 (primary diagnosis) - Stopped taking LAISHA around February because menses were becoming so light. Daily pink spotting started the end of March and changed to normal heavy menstrual flow 2 days ago after starting prednisone - not sexually active for past 6-8 months - NORGESTIMATE 0.25 MG-ETHINYL ESTRADIOL 35 MCG TABLET 2. Provided repeat prescription for oral contraceptive - ICD9: V25.41, ICD10: Z30.41 - RX for Sprinted given today. - discussed with patient on how to take OCP's. Given written information. - counseled on benefits, risks and possible severe side effects of OCP's. - discussed need to use Condoms to help to prevent STD's including HIV etc. - NORGESTIMATE 0.25 MG-ETHINYL ESTRADIOL 35 MCG TABLET - Explained that it will take 3 months of LAISHA to regulate menstrual bleeding/cycles again. Given bleeding precautions. She is to notify office if HMB. Follow-up as needed. Adriana Clark APRN.[facility] Medical Decision Making: Problems: Moderate: 1+ chronic illnesses with change Risk: Moderate: Drug management and Moderate risk from testing/treatment Medical Decision Making Level: 4 - Moderate documented in this encounterCenterville03-15-2025 Instructions* Patient Instructions* Hung Rivero MD - 04/19/2024 12:11 PM EDT - Start taking Vitamin D 4000 IU daily to address low levels. - Begin taking B12 and B6 supplements to support nerve health. - Follow a diet with more protein and fewer carbohydrates to manage low blood sugar levels. - Undergo x-rays to check for any disc issues or nerve pinching in the spine. - Start a Medrol Dosepak as prescribed to reduce inflammation and see if it alleviates symptoms. - Consider aquatic therapy at [facility] to help with back and leg numbness; an order for aquatic therapy has been provided if needed. - Schedule an appointment with a chiropractor for September; you may be placed on a waitlist for an earlier slot. - Next follow-up appointment is on September 23 to review progress and discuss further steps if needed. documented in this encounterCenterville03-15-2025 NoteHNO ID: [id number] Author: HUNG RIVERO MD Service: ? Author Type: Physician Type: Progress Notes Filed: 05/08/2024 23:04 Note Text: This note was created using [employer]. Subjective Sasha Rachel is a 39 year old female. Patient presents with: F/U 6 months: leg numbness SUBJECTIVE: Sasha Rachel is a 39 year old year old lady here today for 6 month follow up appointment for review of medical conditions. Sasha is a 39-year-old female presenting for a 6-month follow-up, with ongoing concerns of bilateral anterior thigh numbness and light menstrual periods. Sasha reports persistent bilateral anterior thigh numbness that occurs after standing for more than 20 minutes. She denies any correlation between the numbness and her menstrual cycle. She has consulted with her OB, who suggested the possibility of a pinched nerve but did not find any gynecological cause for the numbness. Sasha has an upcoming appointment with Adriana Clark for further evaluation. Sasha also reports a light menstrual period that she describes as weird and not quite right. She is seeking further evaluation for this issue as well. Sasha has been unable to see her chiropractor due to a long wait time for appointments. She is concerned about the impact of her symptoms on her ability to participate in a business conference and a family vacation, both of which involve significant walking and standing. Sasha has a history of low back pain and tailbone pain, which she attributes to a previous . She also reports occasional pain radiating down her left leg, but not her right leg. She denies any recent injuries or falls. Sasha has not been taking vitamin D supplements, despite a previous recommendation to do so. She reports low energy levels and difficulty sleeping, which she attributes to her symptoms. She is interested in exploring aquatic therapy as a potential treatment option. PAST MEDICAL HISTORY Diagnosis Date Abnormal Pap smear of cervix 2004 Allergic rhinitis due to other allergen Depressive disorder, not elsewhere classified Fibromyalgia Food poisoning 2015 Irritable bowel syndrome Myalgia and myositis, unspecified Other chronic sinusitis Current Outpatient Medications Medication Sig sertraline (ZOLOFT) 100 mg tablet Take 1 tablet by mouth once daily. Dose change, take 1 daily fluticasone (FLONASE) 50 mcg/actuation nasal spray Use 2 Sprays in each nostril once daily. Rinse mouth after use. benzonatate (TESSALON PERLE) 100 mg capsule Take 1-2 capsules by mouth three times a day as needed. sod bicarb-sod chlor-neti pot (NEILMED NASAFLO) pkdv 1 Each by sinus irrigation route two times a day as needed (for sinus congestion and drainage). hydrOXYzine HCl (ATARAX) 10 mg tablet Take 1-2 tablets by mouth three times a day as needed for anxiety. buPROPion XL (WELLBUTRIN XL) 150 mg 24 hr tablet Take 1 tablet by mouth once daily. norgestimate 0.25 mg-ethinyl estradiol 35 mcg (SPRINTEC) 0.25-35 mg-mcg per tablet Take 1 tablet by mouth once daily. ondansetron orally disintegrating (ZOFRAN ODT) 4 mg disintegrating tablet Take 1 tablet by mouth every 6 hours as needed for nausea/vomiting. cetirizine (ZYRTEC) 10 mg tablet Take 1 tablet by mouth once daily. cholecalciferol (VITAMIN D3) 5,000 unit tab Take 1 tablet by mouth once daily. Magnesium 250 mg tab Take 2 tablets by mouth once daily. for anxiety / depression ibuprofen (MOTRIN) 200 mg tablet Take 4 tablets by mouth every 8 hours as needed for pain (headache). Take with food. albuterol HFA (PROAIR HFA) 90 mcg/actuation inhaler Inhale 2 Puffs as instructed every 6 hours as needed. No current facility-administered medications for this visit. Review of Systems Objective BP 122/72 (BP Site: Right Arm, BP Position: Sitting, BP Cuff Size: Large Adult) Pulse 76 Temp 36.3 ?C (97.3 ?F) (Temporal) Resp 14 Ht 172.7 cm (5' 8) Wt 115.3 kg (254 lb 3.1 oz) LMP 04/04/2024 (Within Days) SpO2 98% BMI 38.65 kg/m? Physical Exam Constitutional: Appearance: Normal appearance. HENT: Head: Normocephalic. Eyes: Conjunctiva/sclera: Conjunctivae normal. Cardiovascular: Rate and Rhythm: Normal rate and regular rhythm. Heart sounds: Normal heart sounds. Pulmonary: Effort: Pulmonary effort is normal. Breath sounds: Normal breath sounds. Musculoskeletal: Comments: Cervical back: Neck supple. Lower legs: No edema. Lumbar spine: Tenderness noted in the lumbar spine and lower thoracic region. Tailbone: Reports chronic pain in the coccyx area. Lower extremities: Reports numbness and tingling in bilateral anterior thighs. Pain radiating down the left leg below the knee. Skin: General: Skin is warm and dry. Neurological: General: No focal deficit present. Mental Status: She is alert and oriented to person, place, and time. Psychiatric: Mood and Affect: Mood normal. Behavior: Behavior no (more content not included)...[facility] 04-19-2024 History of Present illness Narrative* Hung Rivero MD - 04/19/2024 11:43 AM EDT This note was created using [employer] [facility]. Subjective Sasha Rachel is a 39 year old female. Patient presents with: F/U 6 months: leg numbness SUBJECTIVE: Sasha Rachel is a 39 year old year old lady here today for 6 month follow up appointment for review of medical conditions. Sasha is a 39-year-old female presenting for a 6-month follow-up, with ongoing concerns of bilateral anterior thigh numbness and light menstrual periods. Sasha reports persistent bilateral anterior thigh numbness that occurs after standing for more than 20 minutes. She denies any correlation between the numbness and her menstrual cycle. She has consulted with her OB, who suggested the possibility of a pinched nerve but did not find any gynecological cause for the numbness. Sasha has an upcoming appointment with Adriana Clark for further evaluation. Sasha also reports a light menstrual period that she describes as weird and not quite right. She is seeking further evaluation for this issue as well. Sasha has been unable to see her chiropractor due to a long wait time for appointments. She is concerned about the impact of her symptoms on her ability to participate in a business conference and a family vacation, both of which involve significant walking and standing. Sasha has a history of low back pain and tailbone pain, which she attributes to a previous . She also reports occasional pain radiating down her left leg, but not her right leg. She deniesany recent injuries or falls. Sasha has not been taking vitamin D supplements, despite a previous recommendation to do so. She reports low energy levels and difficulty sleeping, which she attributes to her symptoms. She is interested in exploring aquatic therapy as a potential treatment option. PAST MEDICAL HISTORY Diagnosis Date Abnormal Pap smear of cervix 2004 Allergic rhinitis due to other allergen Depressive disorder, not elsewhere classified Fibromyalgia Food poisoning 2015 Irritable bowel syndrome Myalgia and myositis, unspecified Other chronic sinusitis Current Outpatient Medications Medication Sig sertraline (ZOLOFT) 100 mg tablet Take 1 tablet by mouth once daily. Dose change, take 1 daily fluticasone (FLONASE) 50 mcg/actuation nasal spray Use 2 Sprays in each nostril once daily. Rinse mouth after use. benzonatate (TESSALON PERLE) 100 mg capsule Take 1-2 capsules by mouth three times a day as needed. sod bicarb-sod chlor-neti pot (NEILMED NASAFLO) pkdv 1 Each by sinus irrigation route two times a day as needed (for sinus congestion and drainage). hydrOXYzine HCl (ATARAX) 10 mg tablet Take 1-2 tablets by mouth three times a day as needed for anxiety. buPROPion XL (WELLBUTRIN XL) 150 mg 24 hr tablet Take 1 tablet by mouth once daily. norgestimate 0.25 mg-ethinyl estradiol 35 mcg (SPRINTEC) 0.25-35 mg-mcg per tablet Take 1 tablet bymouth once daily. ondansetron orally disintegrating (ZOFRAN ODT) 4 mg disintegrating tablet Take 1 tablet by mouth every 6 hours as needed for nausea/vomiting. cetirizine (ZYRTEC) 10 mg tablet Take 1 tablet by mouth once daily. cholecalciferol (VITAMIN D3) 5,000 unit tab Take 1 tablet by mouth once daily. Magnesium 250 mg tab Take 2 tablets by mouth once daily. for anxiety / depression ibuprofen (MOTRIN) 200 mg tablet Take 4 tablets by mouth every 8 hours as needed for pain (headache). Take with food. albuterol HFA (PROAIR HFA) 90 mcg/actuation inhaler Inhale 2 Puffs as instructed every 6 hours as needed. No current facility-administered medications for this visit. Review of Systems Objective BP 122/72 (BP Site: Right Arm, BP Position: Sitting, BP Cuff Size: Large Adult) Pulse 76 Temp 36.3 C (97.3 F) (Temporal) Resp 14 Ht 172.7 cm (5' 8) Wt 115.3 kg (254 lb 3.1 oz) LMP 04/04/2024 (Within Days) SpO2 98% BMI 38.65 kg/m Physical Exam Constitutional: Appearance: Normal appearance. HENT: Head: Normocephalic. Eyes: Conjunctiva/sclera: Conjunctivae normal. Cardiovascular: Rate and Rhythm: Normal rate and regular rhythm. Heart sounds: Normal heart sounds. Pulmonary: Effort: Pulmonary effort is normal. Breath sounds: Normal breath sounds. Musculoskeletal: Comments: Cervical back: Neck supple. Lower legs: No edema. Lumbar spine: Tenderness noted in the lumbar spine and lower thoracic region. Tailbone: Reports chronic pain in the coccyx area. Lower extremities: Reports numbness and tingling in bilateral anterior thighs. Pain radiating down the left leg below the knee. Skin: General: Skin is warm and dry. Neurological: General: No focal deficit present. Mental Status: She is alert and oriented to person, place, and time. Psychiatric: Mood and Affect: Mood normal. Behavior: Behavior normal. Thought Content: Thought content normal. Judgment: Judgment normal. Latest Ref Rng 09/07/2023 04/03/2024 WBC 3.70 - 11.00 k/uL 10.09 10.94 RBC 3.90 - 5.20 m/uL 4.83 4.28 Hemoglobin 11.5 - 15.5 g/dL 14.0 13.0 Hematocrit 36.0 - 46.0 % 44.6 39.3 MCV 80.0 - 100.0 fL 92.3 91.8 MCH 26.0 - 34.0 pg 29.0 30.4 MCHC 30.5 - 36.0 g/dL 31.4 33.1 RDW-CV 11.5 - 15.0 % 14.8 14.5 Platelet Count 150 - 400 k/uL 316 261 MPV 9.0 - 12.7 fL 10.5 11.4 Neut% % 64.1 Abs Neut (ANC) 1.45 - 7.50 k/uL 6.47 Lymph% % 24.1 Abs Lymph 1.00 - 4.00 k/uL 2.43 Searcy% % 7.7 Abs [place] <0.87 k/uL 0.78 Eosin% % 3.5 Abs Eosin <0.46 k/uL 0.35 Baso% % 0.3 Abs Baso <0.11 k/uL 0.03 Immature Gran % % 0.3 IMMATURE GRANS (ABS) <0.10 k/uL 0.03 NRBC /100 WBC 0.0 Absolute nRBC <0.01 k/uL <0.01 <0.01 DTYPE Auto Protein, Total 6.3 - 8.0 g/dL 7.1 6.8 Albumin 3.9 - 4.9 g/dL 4.2 4.0 Calcium 8.5 - 10.2 mg/dL 9.3 9.2 Bilirubin, Total 0.2 - 1.3 mg/dL 0.2 0.2 Alkaline Phosphatase 34 - 123 U/L 82 69 AST 13 - 35 U/L 21 24 ALT 7 - 38 U/L 20 27 Glucose 74 - 99 mg/dL 87 72 (L) BUN 7 - 21 mg/dL 16 16 Creatinine 0.58 - 0.96 mg/dL 0.73 0.73 Sodium 136 - 144 mmol/L 135 (L) 137 Potassium 3.7 - 5.1 mmol/L 4.7 4.1 Chloride 98 - 107 mmol/L 102 105 CO2 22 - 30 mmol/L 22 23 Anion Gap 8 - 15 mmol/L 11 9 eGFR >=60 mL/min/1.73m 108 107 Cholesterol, Total <200 mg/dL 273 (H) Triglyceride <150 mg/dL 142 HDL Cholesterol >39 mg/dL 72 Non HDL Cholesterol <130 mg/dL 201 (H) Fasting Time hrs 12 VLDL Cholesterol <30 mg/dL 28 TC:HDL Ratio <5.10 3.79 LDL Cholesterol <100 mg/dL 173 (H) LDL:HDL Ratio <2.54 2.40 Vitamin D 25 Hydroxy 31.0 - 80.0 ng/mL 19.3 (L) 27.8 (L) TSH 0.270 - 4.200 mIU/L 3.450 Free T4 0.9 - 1.7 ng/dL 0.9 Free T3 2.3 - 4.1 pg/mL 2.8 Vitamin B12 232 - 1,245 pg/mL 715 Vitamin B6, Plasma 20.0 - 125.0 nmol/L 31.7 Legend: (L) Low (H) High Assessment and Plan # Numbness and tingling of lower extremity (R20.0) # 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 No significant weakness noted. - Differential diagnosis includes nerve impingement or disc pathology. - Ordered lumbar spine X-rays with flexion and extension views to assess for disc issues or vertebral slippage. - Prescribed Medrol Dosepak to reduce potential inflammation and alleviate nerve compression. - Discussed potential benefits of aquatic therapy to reduce spinal load and strengthen core muscles. - Follow-up appointment scheduled in 4 weeks to review X-ray results and assess response to treatment. # Vitamin D deficiency (E55.9) - Recent lab results show Vitamin D level at 27.8 ng/mL. - Recommended supplementation with Vitamin D 4000 IU daily. - Discussed potential benefits of B12 and B6 supplementation to support nerve health. Hung Rivero MD documented in this encounterCenterville03-03-2025 NoteHNO ID: [id number] Author: HAYLIE GARZA MD Service: ? Author Type: Physician Type: Progress Notes Filed: 04/07/2024 14:05 Note Text: Solar Lab Technician offered: Patient declines. Sasha is a 39 year old who presents for an annual gynecologic exam with complaints, period now at day 45. Usually eery 30 days. No chance of . Has been rather stressed recently. Having numbness in leg when standing. Much better when in the pool. Had similar symptoms in . Discussed returning to chiropractor for evaluation. Recent labs all normal. Missed period most likely related to stress but could also be due to BMI. . Still get period: Yes MP: 02/05/2024 Menses: cycles every 30 days and 4 days of flow Menstrual flow: Moderate Bleeding amount bothersome: No Sexually active: not recently Contraception: None HPV vaccine: No HPV:negative Last pap smear: 2023 History of abnormal pap: No Last mammogram: never OB History Gravida1 Para1 Term1 Preterm0 AB0 Living1 SAB0 IAB0 Ectopic0 Multiple0 Live Births1 Sausage Stringer History LMP: 02/05/2024 (Within Days), Having periods Age at Menarche: Age at First : Age at Menopause: Sausage Stringer History Comments: Sexual Activity: Yes; Male Contraception: No contraception data on record PAST MEDICAL HISTORY Diagnosis Date Abnormal Pap smear of cervix 2004 Allergic rhinitis due to other allergen Depressive disorder, not elsewhere classified Fibromyalgia Food poisoning 2015 Irritable bowel syndrome Myalgia and myositis, unspecified Other chronic sinusitis PAST SURGICAL HISTORY Procedure Laterality Date HYSTEROSCOPY BX ENDOMETRIUMAND/POLYPC W/WO DANDC 09/18/2019 hysteroscopy DANDC for AUP TONSILLECTOMY AND ADENOIDECTOMY AGE 12/> 1996 FAMILY HISTORY Problem Relation Age of Onset Breast Cancer Mother other (hypercholesterolemia) Mother diet controlled Obesity Mother Parkinson?s Disease Father Prostate Cancer Father Obesity Father other (overweight) Sister Heart Maternal Grandmother Obesity Maternal Grandmother Psychiatry Maternal Grandfather Obesity Maternal Grandfather Hypertension Paternal Grandmother Heart Paternal Grandmother Obesity Paternal Grandmother Heart Paternal Grandfather Obesity Paternal Grandfather Autism Son SOCIAL HISTORY Social History Tobacco Use Smoking status: Never Smokeless tobacco: Never Vaping Use Vaping status: Never Used Substance Use Topics Alcohol use: Yes Comment: Occasionally, but not while Drug use: No REVIEW OF SYSTEMS Abdomen: No abdominal pain, nausea, vomiting, diarrhea, or constipation. No bloating, early satiety, indigestion, or increased flatulence. Bladder: No dysuria, gross hematuria, urinary frequency, urinary urgency, or incontinence. Breast: No breast lumps, nipple d/c, overlying skin changes, redness or skin retraction. Allergies and current medication updated:Yes SENSITIVE EXAM: The sensitive examination was discussed with the Patient or Patient's Authorized Head Nurse. As applicable, any other physician, advance practice provider, medical student, or other health professional student that will be observing or involved in the sensitive examination for educational or training purposes was discussed with the Patient or Authorized Head Nurse. The Patient or Authorized Head Nurse has agreed to proceed with the sensitive examination. (Sensitive examination includes inspection and/or palpation of the breasts, pelvis, prostate and anorectal regions). EXAM: BP 120/80 Ht 5' 8 (1.73m) Wt 259 lb (117.5kg) LMP 02/05/2024 BMI 39.39 kg/(m2). GENERAL: pleasant, female in no apparent distress HEENT: Normocephalic, atraumatic, mucus membranes moist, and no lesions NECK: Supple, full range of motion, no adenopathy, and thyroid normal DERMATOLOGY: Normal, without lesions, non-icteric, and non-hirsute BREAST: soft, non-tender, symmetric, no dominant mass, normal nipple-areolar complex, no lymphadenopathy, and no nipple discharge CHEST: Normal inspiratory effort ABDOMEN: soft, non-tender, and no masses PELVIC: external genitalia normal, normal Bartholin's glands, urethra, [place]'s glands, no vulvar lesions, no cervical lesions, good vaginal support, physiologic discharge present, normal appearing perineal body and perianal region BIMANUAL: uterus normal size, shape and consistency, no adnexal masses, and non-tender RECTOVAGINAL: deferred. NEURO: alert and oriented x3,exam grossly non-focal EXTREMITIES: normal ASSESSMENT/PLAN: 1) Health maintenance: Pap/HPV up to date. 2) Contraception: none. Contraceptive options reviewed and information provided. 3) STD screening: Declined STD check. 4) Follow up one year or sooner as needed Haylie Garza [facility]03-03-2025 History of Present illness Narrative* Haylie Garza MD - 04/07/2024 1:27 PM EST Solar Lab Technician offered: Patient declines. Sasha is a 39 year old who presents for an annual gynecologic exam with complaints, period now at day 45. Usually eery 30 days. No chance of . Has been rather stressed recently. Having numbness in leg when standing. Much better when in the pool. Had similar symptoms in . Discussed returning to chiropractor for evaluation. Recent labs all normal. Missed period most likely related to stress but could also be due to BMI. . Still get period: Yes MP: 02/05/2024 Menses: cycles every 30 days and 4 days of flow Menstrual flow: Moderate Bleeding amount bothersome: No Sexually active: not recently Contraception: None HPV vaccine: No HPV:negative Last pap smear: 2023 History of abnormal pap: No Last mammogram: never OB History Gravida1 Para1 Term1 Preterm0 AB0 Living1 SAB0 IAB0 Ectopic0 Multiple0 Live Births1 Sausage Stringer History LMP: 02/05/2024 (Within Days), Having periods Age at Menarche: Age at First : Age at Menopause: Sausage Stringer History Comments: Sexual Activity: Yes; Male Contraception: No contraception data on record PAST MEDICAL HISTORY Diagnosis Date Abnormal Pap smear of cervix 2004 Allergic rhinitis due to other allergen Depressive disorder, not elsewhere classified Fibromyalgia Food poisoning 2014 Irritable bowel syndrome Myalgia and myositis, unspecified Other chronic sinusitis PAST SURGICAL HISTORY Procedure Laterality Date HYSTEROSCOPY BX ENDOMETRIUM&/POLYPC W/WO D&C 09/18/2019 hysteroscopy D&C for AUP TONSILLECTOMY & ADENOIDECTOMY AGE 12/> 1996 FAMILY HISTORY Problem Relation Age of Onset Breast Cancer Mother other (hypercholesterolemia) Mother diet controlled Obesity Mother Parkinson s Disease Father Prostate Cancer Father Obesity Father other (overweight) Sister Heart Maternal Grandmother Obesity Maternal Grandmother Psychiatry Maternal Grandfather Obesity Maternal Grandfather Hypertension Paternal Grandmother Heart Paternal Grandmother Obesity Paternal Grandmother Heart Paternal Grandfather Obesity Paternal Grandfather Autism Son SOCIAL HISTORY Social History Tobacco Use Smoking status: Never Smokeless tobacco: Never Vaping Use Vaping status: Never Used Substance Use Topics Alcohol use: Yes Comment: Occasionally, but not while Drug use: No REVIEW OF SYSTEMS Abdomen: No abdominal pain, nausea, vomiting, diarrhea, or constipation. No bloating, early satiety, indigestion, or increased flatulence. Bladder: No dysuria, gross hematuria, urinary frequency, urinary urgency, or incontinence. Breast: No breast lumps, nipple d/c, overlying skin changes, redness or skin retraction. Allergies and current medication updated:Yes SENSITIVE EXAM: The sensitive examination was discussed with the Patient or Patient's Authorized Head Nurse. As applicable, any other physician, advance practice provider, medical student, or other health professional student that will be observing or involved in the sensitive examination for educational or training purposes was discussed with the Patient or Authorized Head Nurse. The Patient or Authorized Head Nurse has agreed to proceed with the sensitive examination. (Sensitive examination includes inspection and/or palpation of the breasts, pelvis, prostate and anorectal regions). EXAM: BP 120/80 Ht 5' 8 (1.73m) Wt 259 lb (117.5kg) LMP 02/05/2024 BMI 39.39 kg/(m^2). GENERAL: pleasant, female in no apparent distress HEENT: Normocephalic, atraumatic, mucus membranes moist, and no lesions NECK: Supple, full range of motion, no adenopathy, and thyroid normal DERMATOLOGY: Normal, without lesions, non-icteric, and non-hirsute BREAST: soft, non-tender, symmetric, no dominant mass, normal nipple-areolar complex, no lymphadenopathy, and no nipple discharge CHEST: Normal inspiratory effort ABDOMEN: soft, non-tender, and no masses PELVIC: external genitalia normal, normal Bartholin's glands, urethra, [place]'s glands, no vulvar lesions, no cervical lesions, good vaginal support, physiologic discharge present, normal appearing perineal body and perianal region BIMANUAL: uterus normal size, shape and consistency, no adnexal masses, and non-tender RECTOVAGINAL: deferred. NEURO: alert and oriented x3,exam grossly non-focal EXTREMITIES: normal ASSESSMENT/PLAN: 1) Health maintenance: Pap/HPV up to date. 2) Contraception: none. Contraceptive options reviewed and information provided. 3) STD screening: Declined STD check. 4) Follow up one year or sooner as needed Haylie Garza MD documented in this encounterCent[place]02-27-2025 Telephone encounter Note * Telephone Encounter - Sujit Bass RN - 04/03/2024 10:18 AM EST Talked with Dr. Garza-Will discuss amenorrhea at appt; however, other concerns are likely unrelated to NURSING INSTRUCTOR specialty. Sujit Bass RN [place]02-27-2025 Miscellaneous Notes* Telephone Encounter - Sujit Bass RN - 04/03/2024 10:18 AM EST Talked with Dr. Garza-Will discuss amenorrhea at appt; however, other concerns are likely unrelated to NURSING INSTRUCTOR specialty. Sujit Bass RN * Telephone Encounter - Haylie Garza MD - 04/03/2024 8:51 AM EST This sounds like a neuro or vascular issue. Even if there was something in her pelvis causing compression of her nerves it would not effect her hands * Telephone Encounter - Sujit Bass RN - 04/02/2024 10:54 AM EST LMP beginning of the year-02/07/24. Pt saw Dr. Phillips 04/01/24. B/L thigh numbness-sleeping in different positions toes and fingers go tingly/numb. Dr. Phillips advised Pt to see OBGYN as Pt had thesesame problems when she was and now that she is not (possibly wondering if maybe patient has something going on internally where nerves are being pressed on). Appt made for 04/07/24 with JLindsey. Sujit Bass RN documented in this encounterCenterville02-27-2025 Telephone encounter Note * Telephone Encounter - Haylie Garza MD - 04/03/2024 8:51 AM EST This sounds like a neuro or vascular issue. Even if there was something in her pelvis causing compression of her nerves it would not effect her hands [place] Work Phone: [phone] 266-803102-26-2025 Telephone encounter Note* Telephone Encounter - Sujit Bass RN - 04/02/2024 10:54 AM EST LMP beginning of the year-02/07/24. Pt saw Dr. Phillips 04/01/24. B/L thigh numbness-sleeping in different positions toes and fingers go tingly/numb. Dr. Phillips advised Pt to see OBGYN as Pt had thesesame problems when she was and now that she is not (possibly wondering if maybe patient has something going on internally where nerves are being pressed on). Appt made for 04/07/24 with SONAL. Sujit Bass RN [place]02-25-2025 Note* Addendum Note - Hung Rivero MD - 04/01/2024 6:34 PM ESTAddended by: HUNG RIVERO on: 04/01/2024 06:34 PM Modules accepted: Orders [facility]02-25-2025 Miscellaneous Notes* Addendum Note - Hung Rivero MD - 04/01/2024 6:34 PM ESTAddended by: HUNG RIVERO on: 04/01/2024 06:34 PM Modules accepted: Orders documented in this encounterCenterville02-25-2025 Instructions* Patient Instructions* Hung Rivero MD - 04/01/2024 6:22 PM EST - Complete lab tests as ordered, including CMP, CBC, thyroid function tests, B12, and B6 levels. - Take Vitamin D 4000 IU daily; consider placing the supplement in a visible location to help remember to take it consistently. - Maintain a diet rich in omega-3 fatty acids, including foods like edamame, marine fish, ground flaxseed, and walnuts. - Contact Adriana [facility] office to discuss moving up your appointment or adding additional tests, such as an ultrasound, due to missed periods and associated symptoms. - Monitor for any changes in symptoms, including numbness, tingling, or pain, and report any significant changes. documented in this encounterCenterville02-25-2025 NoteHNO ID: [id number] Author: HUNG RIVERO MD Service: ? Author Type: Physician Type: Progress Notes Filed: 04/01/2024 18:25 Note Text: This note was created using [employer]. Subjective Sasha Rachel is a 39 year old female. Patient presents with: Same Day Appointment: tail bone issues and hand and feet numbness SUBJECTIVE: Sasha Rachel is a 39 year old year old lady here today for Same Day appointment for review of medical conditions. Sasha Rachel is a 39-year-old female, with a history of recurrent depression and anxiety, presenting for evaluation of chronic tailbone pain and recent onset of hand and foot numbness. Sasha reports chronic tailbone pain persisting for 5 years, which began after the of her son. She suspects a coccygeal fracture occurred during delivery, as her son was delivered via vacuum extraction. She notes that her coccyx cracks back and forth when not seated in a specific position. She also endorses numbness in her feet when seated in certain positions, and recent onset of hand numbness over the past month. Additionally, she experiences numbness in the area above her knees, primarily on the left side, when standing for extended periods. This numbness is sometimes followed by pain when she sits back down andsensation returns. She reports that these symptoms can also occur at night if she is in a weird position, such as lying on her side with her arm under her body. She denies any issues with dropping objects or weakness in her hands. Sasha works from home and uses a computer and mouse regularly. She has implemented ergonomic measures, including using an ergonomic mouse and standing up periodically. She has also been trying to increase her physical activity by biking, but reports that walking for extended periods is painful. She denies any recent changes in activity level or repetitive motions that could explain her symptoms. Sasha also reports amenorrhea for the past 45 days, with her last menstrual period in February. She denies the possibility of and has not had any significant changes in her diet or exercise routine that could explain the missed period. She notes a history of irregular periods, but this is the longest she has gone without menstruating. She denies any pelvic pain, but reports slight cramping. Sasha has a history of recurrent depression and anxiety, which she describes as two fighting children. She reports that her mood has been stable, but she experiences episodes of depression every couple of months. She notes that work is a constant stressor and she feels more sensitive to stress than others. She also reports a family history of anxiety and depression. Sasha has been working on weight management, but reports that she has given up on it for now due to the challenges of managing her autistic son and her own health issues. She reports that her diet is under control, but she is struggling to maintain a regular exercise routine due to her symptoms. She also reports difficulty with executive functioning, which makes it challenging to stick to a weight management plan. She has been taking vitamin D supplements inconsistently. PAST MEDICAL HISTORY Diagnosis Date Abnormal Pap smear of cervix 2004 Allergic rhinitis due to other allergen Depressive disorder, not elsewhere classified Fibromyalgia Food poisoning 2014 Irritable bowel syndrome Myalgia and myositis, unspecified Other chronic sinusitis Current Outpatient Medications Medication Sig sertraline (ZOLOFT) 100 mg tablet Take 1 tablet by mouth once daily. Dose change, take 1 daily fluticasone (FLONASE) 50 mcg/actuation nasal spray Use 2 Sprays in each nostril once daily. Rinse mouth after use. benzonatate (TESSALON PERLE) 100 mg capsule Take 1-2 capsules by mouth three times a day as needed. sod bicarb-sod chlor-neti pot (NEILMED NASAFLO) pkdv 1 Each by sinus irrigation route two times a day as needed (for sinus congestion and drainage). hydrOXYzine HCl (ATARAX) 10 mg tablet Take 1-2 tablets by mouth three times a day as needed for anxiety. buPROPion XL (WELLBUTRIN XL) 150 mg 24 hr tablet Take 1 tablet by mouth once daily. norgestimate 0.25 mg-ethinyl estradiol 35 mcg (SPRINTEC) 0.25-35 mg-mcg per tablet Take 1 tablet by mouth once daily. ondansetron orally disintegrating (ZOFRAN ODT) 4 mg disintegrating tablet Take 1 tablet by mouth every 6 hours as needed for nausea/vomiting. cetirizine (ZYRTEC) 10 mg tablet Take 1 tablet by mouth once daily. cholecalciferol (VITAMIN D3) 5,000 unit tab Take 1 tablet by mouth once daily. Magnesium 250 mg tab Take 2 tablets by mouth once daily. for anxiety / depression ibuprofen (MOTRIN) 200 mg tablet Take 4 tablets by mouth every 8 hours as needed for pain (headache). Take with food. albuterol HFA (PROAIR HFA) 90 mcg/actuation inhaler Inhale 2 Puffs as instructed every 6 hours as n (more content not included)...[facility]02-25-2025 History of Present illness Narrative* Hung Rivero MD - 04/01/2024 5:59 PM EST Images from the original note were not included. This note was created using [employer]. Subjective Sasha Rachel is a 39 year old female. Patient presents with: Same Day Appointment: tail bone issues and hand and feet numbness SUBJECTIVE: Sasha Rachel is a 39 year old year old lady here today for Same Day appointment for review of medical conditions. Sasha Rachel is a 39-year-old female, with a history of recurrent depression and anxiety, presenting for evaluation of chronic tailbone pain and recent onset of hand and foot numbness. Sasha reports chronic tailbone pain persisting for 5 years, which began after the of her son. She suspects a coccygeal fracture occurred during delivery, as her son was delivered via vacuum extraction. She notes that her coccyx cracks back and forth when not seated in a specific position.She also endorses numbness in her feet when seated in certain positions, and recent onset of hand numbness over the past month. Additionally, she experiences numbness in the area above her knees, primarily on the left side, when standing for extended periods. This numbness is sometimes followed by pain when she sits back down and sensation returns. She reports that these symptoms can also occur at night if she is in a weird position, such as lying on her side with her arm under her body. She denies any issues with dropping objects or weakness in her hands. Sasha works from home and uses a computer and mouse regularly. She has implemented ergonomic measures, including using an ergonomic mouse and standing up periodically. She has also been trying to increase her physical activity by biking, but reports that walking for extended periods is painful. She denies any recent changes in activity level or repetitive motions that could explain her symptoms. Sasha also reports amenorrhea for the past 45 days, with her last menstrual period in February. She denies the possibility of and has not had any significant changes in her diet or exercise routine that could explain the missed period. She notes a history of irregular periods, but this is the longest she has gone without menstruating. She denies any pelvic pain, but reports slight cramping. Sasha has a history of recurrent depression and anxiety, which she describes as two fighting children. She reports that her mood has been stable, but she experiences episodes of depression every couple of months. She notes that work is a constant stressor and she feels more sensitive to stress than others. She also reports a family history of anxiety and depression. Sasha has been working on weight management, but reports that she has given up on it for now due to the challenges of managing her autistic son and her own health issues. She reports that her diet is under control, but she is struggling to maintain a regular exercise routine due to her symptoms. She also reports difficulty with executive functioning, which makes it challenging to stick to a weight management plan. She has been taking vitamin D supplements inconsistently. PAST MEDICAL HISTORY Diagnosis Date Abnormal Pap smear of cervix 2004 Allergic rhinitis due to other allergen Depressive disorder, not elsewhere classified Fibromyalgia Food poisoning 2014 Irritable bowel syndrome Myalgia and myositis, unspecified Other chronic sinusitis Current Outpatient Medications Medication Sig sertraline (ZOLOFT) 100 mg tablet Take 1 tablet by mouth once daily. Dose change, take 1 daily fluticasone (FLONASE) 50 mcg/actuation nasal spray Use 2 Sprays in each nostril once daily. Rinse mouth after use. benzonatate (TESSALON PERLE) 100 mg capsule Take 1-2 capsules by mouth three times a day as needed. sod bicarb-sod chlor-neti pot (NEILMED NASAFLO) pkdv 1 Each by sinus irrigation route two times a day as needed (for sinus congestion and drainage). hydrOXYzine HCl (ATARAX) 10 mg tablet Take 1-2 tablets by mouth three times a day as needed for anxiety. buPROPion XL (WELLBUTRIN XL) 150 mg 24 hr tablet Take 1 tablet by mouth once daily. norgestimate 0.25 mg-ethinyl estradiol 35 mcg (SPRINTEC) 0.25-35 mg-mcg per tablet Take 1 tablet bymouth once daily. ondansetron orally disintegrating (ZOFRAN ODT) 4 mg disintegrating tablet Take 1 tablet by mouth every 6 hours as needed for nausea/vomiting. cetirizine (ZYRTEC) 10 mg tablet Take 1 tablet by mouth once daily. cholecalciferol (VITAMIN D3) 5,000 unit tab Take 1 tablet by mouth once daily. Magnesium 250 mg tab Take 2 tablets by mouth once daily. for anxiety / depression ibuprofen (MOTRIN) 200 mg tablet Take 4 tablets by mouth every 8 hours as needed for pain (headache). Take with food. albuterol HFA (PROAIR HFA) 90 mcg/actuation inhaler Inhale 2 Puffs as instructed every 6 hours as needed. No current facility-administered medications for this visit. Review of Systems Objective BP 124/62 (BP Site: Right Arm, BP Position: Sitting, BP Cuff Size: Large Adult) Pulse 75 Temp (!) 35.7 C (96.3 F) (Temporal) Resp 16 Ht 174 cm (5' 8.5) Wt 115.3 kg (254 lb 3.1 oz) LMP 03/12/2023 (Within Days) SpO2 99% BMI 38.09 kg/m Physical Exam Constitutional: Appearance: Normal appearance. She is obese. Eyes: Pupils: Pupils are equal, round, and reactive to light. Pulmonary: Effort: Pulmonary effort is normal. Musculoskeletal: Back: Right lower leg: No edema. Left lower leg: No edema. Neurological: General: No focal deficit present. Mental Status: She is alert and oriented to person, place, and time. Psychiatric: Mood and Affect: Mood normal. Behavior: Behavior normal. Thought Content: Thought content normal. Judgment: Judgment normal. Assessment and Plan # Tail bone pain (M53.3) # Numbness in feet (R20.0) # Bilateral hand numbness (R20.0) # Bilateral leg numbness (R20.0) - Chronic coccygeal pain since childbirth, exacerbated by certain positions; associated with paresthesia in feet, hands, and legs. - Previous lumbar MRI (2019) showed minimal disc space narrowing and end-plate spondylosis at L1-2,with no significant canal stenosis. - Ordered CMP, CBC, TSH, B12, and B6 to evaluate for potential metabolic or nutritional causes of neuropathy. - Advised ergonomic adjustments at work to minimize repetitive strain. - Recommended follow-up with NURSING INSTRUCTOR for further evaluation, including potential ultrasound to assess for uterine abnormalities. # Vitamin D deficiency (E55.9) - Previous labs indicated low vitamin D levels. - Recommended supplementation with 4000 IU daily. - Discussed importance of consistent supplementation for nerve function and overall health. # Class 2 obesity with body mass index (BMI) of 37.0 to 37.9 in adult, unspecified obesity type, unspecified whether serious comorbidity present (E66.812) - Discussed dietary modifications to include omega-3 rich foods such as marine fish, edamame, ground flaxseed, and walnuts. - Encouraged regular physical activity as tolerated, considering current symptoms. - Follow-up with weight enrollment management coordinator Adriana Clark. # Anxiety attack (F41.0) - Discussed potential impact of vitamin D deficiency on mood and anxiety levels. - Recommended addressing underlying nutritional deficiencies to improve mental health. # Recurrent major depressive disorder, in partial remission (HCC) (F33.41) - Episodes of depression noted every couple of months. - Discussed potential link between vitamin D deficiency and mood disturbances. - Recommended consistent vitamin D supplementation and follow-up with mental health provider if symptoms worsen. # Amenorrhea, secondary (N91.1) - Absence of menstruation for 45 days; last period in February. - Discussed potential hormonal imbalances, including thyroid dysfunction, as contributing factors. - Ordered TSH to evaluate thyroid function. - Advised follow-up with NURSING INSTRUCTOR for further evaluation and potential additional labs or imaging. Hung Rivero MD The patient consented to the use of [employer] software for draft documentation of the visit consistent with [place] s Notice of Privacy Practices. documented in this encounterCenterville01-14-2025 History of Present illness Narrative* Shefali Carvajal APRN.DATABASE TECHNICIAN - 02/19/2024 12:00 PM EST ASIA Rachel is a 39 year old female who presents with 7 days of symptoms that are stable. Symptoms include: Fever (>=100.4F): Yes 99.7F or Chills: Yes Cough: Yes productive, purulent Shortness of breath: No current, was 2 days ago or Difficulty breathing: No Fatigue: Yes Muscle aches: Yes Headache: No New loss of smell or taste: No Sore throat: Yes Nasal congestion: Yes or Rhinorrhea: Yes Nausea: No or Vomiting: No Diarrhea: No OTC meds/remedies that patient has tried: NSAIDs and OTC cold medicine. Reports separately that she would like to increase zoloft to 100 mg daily for anxiety and depression not controlled on current dose. She reports that she has never smoked. She has never used smokeless tobacco. OBJECTIVE PHYSICAL EXAM: BP 102/80 Pulse 72 Temp 36.2 C (97.1 F) Resp 16 Wt 115 kg (253 lb 8.5 oz) LMP 03/12/2023 (Within Days) SpO2 98% BMI 37.99 kg/m General appearance: tired/ill appearing, alert, cooperative, pleasant, in no acute distress Head: Normocephalic Eyes: conjunctiva/corneas normal Ears: R TM - clear with good landmarks, nl light reflex, L TM - clear with good landmarks, nl lightreflex Nose: purulent rhinorrhea, mucosa erythematous and swollen Oropharynx: moist without lesions, mild erythema to GPA Neck: supple and small, benign anterior cervical nodes bilaterally Heart: regular rate and rhythm, without murmur Lungs: clear to auscultation, without rales or wheeze, good air exchange ASSESSMENT/PLAN (J32.9, J40) Sinobronchitis (primary encounter diagnosis) (F41.9, F32.A) Anxiety and depression ASSESSMENT/PLAN: 1. Sinobronchitis - ICD9: 473.9, 490, ICD10: J32.9, J40 (primary diagnosis) - Will begin treatment with as per antibiotic as written, see orders - Supportive care with plenty of fluids, rest, and analgesia prn. - Follow up in 3-5 days if symptoms persist or worsen. - AMOXICILLIN 875 MG-POTASSIUM CLAVULANATE 125 MG TABLET - FLUTICASONE PROPIONATE 50 MCG/ACTUATION NASAL SPRAY,SUSPENSION - BENZONATATE 100 MG CAPSULE - NEILMED NASAFLO PACKET WITH SINUS RINSE DEVICE 2. Anxiety and depression - ICD9: 300.00, 311, ICD10: F41.9, F32.A She notes decreased control of anxiety and depression and would like to increase her dose of sertraline from 50 mg daily to 100 mg. Refer to counseling if so desires. - SERTRALINE 100 MG TABLET Shefali Carvajal APRN.CNS Medical Decision Making: Problems: Low: Acute, uncomplicated illness or injury Moderate: 1+ chronic illnesses with change Risk: Moderate: Drug management Medical Decision Making Level: 4 - Moderate documented in this encounterCenterville01-14-2025 NoteHNO ID: [id number] Author: SHEFALI CARVAJAL APRN.RASHEL Service: ? Author Type: Nurse Specialist Type: Progress Notes Filed: 02/19/2024 12:36 Note Text: ASIA Rachel is a 39 year old female who presents with 7 days of symptoms that are stable. Symptoms include: Fever (>=100.4F): Yes 99.7F or Chills: Yes Cough: Yes productive, purulent Shortness of breath: No current, was 2 days ago or Difficulty breathing: No Fatigue: Yes Muscle aches: Yes Headache: No New loss of smell or taste: No Sore throat: Yes Nasal congestion: Yes or Rhinorrhea: Yes Nausea: No or Vomiting: No Diarrhea: No OTC meds/remedies that patient has tried: NSAIDs and OTC cold medicine. Reports separately that she would like to increase zoloft to 100 mg daily for anxiety and depression not controlled on current dose. She reports that she has never smoked. She has never used smokeless tobacco. OBJECTIVE PHYSICAL EXAM: BP 102/80 Pulse 72 Temp 36.2 ?C (97.1 ?F) Resp 16 Wt 115 kg (253 lb 8.5 oz) LMP 03/12/2023 (Within Days) SpO2 98% BMI 37.99 kg/m? General appearance: tired/ill appearing, alert, cooperative, pleasant, in no acute distress Head: Normocephalic Eyes: conjunctiva/corneas normal Ears: R TM - clear with good landmarks, nl light reflex, L TM - clear with good landmarks, nl light reflex Nose: purulent rhinorrhea, mucosa erythematous and swollen Oropharynx: moist without lesions, mild erythema to GPA Neck: supple and small, benign anterior cervical nodes bilaterally Heart: regular rate and rhythm, without murmur Lungs: clear to auscultation, without rales or wheeze, good air exchange ASSESSMENT/PLAN (J32.9, J40) Sinobronchitis (primary encounter diagnosis) (F41.9, F32.A) Anxiety and depression ASSESSMENT/PLAN: 1. Sinobronchitis - ICD9: 473.9, 490, ICD10: J32.9, J40 (primary diagnosis) - Will begin treatment with as per antibiotic as written, see orders - Supportive care with plenty of fluids, rest, and analgesia prn. - Follow up in 3-5 days if symptoms persist or worsen. - AMOXICILLIN 875 MG-POTASSIUM CLAVULANATE 125 MG TABLET - FLUTICASONE PROPIONATE 50 MCG/ACTUATION NASAL SPRAY,SUSPENSION - BENZONATATE 100 MG CAPSULE - NEILMED NASAFLO PACKET WITH SINUS RINSE DEVICE 2. Anxiety and depression - ICD9: 300.00, 311, ICD10: F41.9, F32.A She notes decreased control of anxiety and depression and would like to increase her dose of sertraline from 50 mg daily to 100 mg. Refer to counseling if so desires. - SERTRALINE 100 MG TABLET Shefali Carvajal APRN.DATABASE TECHNICIAN Medical Decision Making: Problems: Low: Acute, uncomplicated illness or injury Moderate: 1+ chronic illnesses with change Risk: Moderate: Drug management Medical Decision Making Level: 4 - [facility]erate[facility] History of Present illness Narrative* Shefali Carvajal APRN.DATABASE TECHNICIAN - 09/10/2023 10:40 AM EDT SUBJECTIVE: Hepatitis B Vaccine(1 of 3 - 19+ 3-dose series) Never done HPI Sasha Rachel is a 38 year old female. PMH significant for ACTIVE PROBLEM LIST Fibromyalgia Anxiety and Depression Anxiety Numbness and Tingling of Lower Extremity Class 2 Obesity With Body Mass Index (Bmi) of 38.0 to 38.9 in Adult Notes she is in her usual state of health. She reports significant stressors through work and with her son with autism. Some difficulties with insurance coverage for him. Reports some dietary indiscretions. Job is sedentary no formal exercise. Non-smoker. Weight is stable. Notes she is stress eating. She notes mother helps with caring for her son but also needs breaks and when vacation time came around she wanted to take off for her on vacation.Sasha then had a staycation. Notes child with diagnosis of autism requiring lots of support. Seems like there is never a break for her. Notes anxiety and depression. Continued on Zoloft and Wellbutrin. Continues seeing counselor, Isabel [facility] in [facility]. No voiced SI HI. She notes mood is stable on current medications. She hasresumed hydroxyzine and has found it to be helpful if she is feeling panicky. Review of Systems Psychiatric/Behavioral: Positive for dysphoric mood. The patient is nervous/anxious. Objective BP 120/79 Pulse 69 Resp 16 Ht 174 cm (5' 8.5) Wt 114.3 kg (251 lb 15.8 oz) LMP 03/12/2023 (Within Days) BMI 37.76 kg/m Physical Exam Vitals and nursing note reviewed. Constitutional: Appearance: Normal appearance. HENT: Head: Normocephalic and atraumatic. Right Ear: Ear canal normal. Left Ear: Tympanic membrane and ear canal normal. Eyes: Conjunctiva/sclera: Conjunctivae normal. Neck: Thyroid: No thyromegaly or thyroid tenderness. Vascular: Normal carotid pulses. No JVD. Cardiovascular: Rate and Rhythm: Normal rate and regular rhythm. Pulses: Carotid pulses are 2+ on the right side and 2+ on the left side. Radial pulses are 2+ on the right side and 2+ on the left side. Heart sounds: Normal heart sounds. Pulmonary: Effort: Pulmonary effort is normal. Breath sounds: Normal breath sounds. Abdominal: General: Bowel sounds are normal. Palpations: Abdomen is soft. Musculoskeletal: Right lower leg: No edema. Left lower leg: No edema. Skin: General: Skin is warm and dry. Neurological: General: No focal deficit present. Mental Status: She is alert and oriented to person, place, and time. ALLERGIES Allergen Reactions Mold Other: See Comments Seasonal Allergies Other: See Comments Medications norgestimate 0.25 mg-ethinyl estradiol 35 mcg (SPRINTEC) 0.25-35 mg-mcg per tablet Take 1 tablet bymouth once daily. ondansetron orally disintegrating (ZOFRAN ODT) 4 mg disintegrating tablet Take 1 tablet by mouth every 6 hours as needed for nausea/vomiting. cetirizine (ZYRTEC) 10 mg tablet Take 1 tablet by mouth once daily. cholecalciferol (VITAMIN D3) 5,000 unit tab Take 1 tablet by mouth once daily. Magnesium 250 mg tab Take 2 tablets by mouth once daily. for anxiety / depression ibuprofen (MOTRIN) 200 mg tablet Take 4 tablets by mouth every 8 hours as needed for pain (headache). Take with food. albuterol HFA (PROAIR HFA) 90 mcg/actuation inhaler Inhale 2 Puffs as instructed every 6 hours as needed. hydrOXYzine HCl (ATARAX) 10 mg tablet Take 1-2 tablets by mouth three times a day as needed for anxiety. buPROPion XL (WELLBUTRIN XL) 150 mg 24 hr tablet Take 1 tablet by mouth once daily. sertraline (ZOLOFT) 50 mg tablet Take 1 tablet by mouth once daily. Dose change, take 1 daily PAST MEDICAL HISTORY 2004: Abnormal Pap smear of cervix No date: Allergic rhinitis due to other allergen No date: Depressive disorder, not elsewhere classified No date: Fibromyalgia 2015: Food poisoning No date: Irritable bowel syndrome No date: Myalgia and myositis, unspecified No date: Other chronic sinusitis Social History Tobacco Use Smoking status: Never Smokeless tobacco: Never Vaping Use Vaping Use: Never used Substance Use Topics Alcohol use: Yes Comment: Occasionally, but not while Drug use: No Latest Ref Rng 09/17/2021 07/12/2022 09/22/2022 09/07/2023 WBC 3.70 - 11.00 k/uL 7.12 10.09 RBC 3.90 - 5.20 m/uL 4.73 4.83 Hemoglobin 11.5 - 15.5 g/dL 14.2 14.0 Hematocrit 36.0 - 46.0 % 46.1 (H) 44.6 MCV 80.0 - 100.0 fL 97.5 92.3 MCH 26.0 - 34.0 pg 30.0 29.0 MCHC 30.5 - 36.0 g/dL 30.8 31.4 RDW-CV 11.5 - 15.0 % 13.6 14.8 Platelet Count 150 - 400 k/uL 236 316 MPV 9.0 - 12.7 fL 11.0 10.5 Neut% % 63.0 64.1 Abs Neut (ANC) 1.45 - 7.50 k/uL 4.48 6.47 Lymph% % 25.8 24.1 Abs Lymph 1.00 - 4.00 k/uL 1.84 2.43 [place]% % 8.1 7.7 Abs [place] <0.87 k/uL 0.58 0.78 Eosin% % 2.5 3.5 Abs Eosin <0.46 k/uL 0.18 0.35 Baso% % 0.3 0.3 Abs Baso <0.11 k/uL <0.03 0.03 Immature Gran % % 0.3 0.3 IMMATURE GRANS (ABS) <0.10 k/uL <0.03 0.03 NRBC /100 WBC 0.0 0.0 Absolute nRBC <0.01 k/uL <0.01 <0.01 DTYPE Auto Auto Protein, Total 6.3 - 8.0 g/dL 7.5 6.9 7.1 Albumin 3.9 - 4.9 g/dL 4.1 4.4 4.2 Calcium 8.5 - 10.2 mg/dL 9.0 9.1 9.3 Bilirubin, Total 0.2 - 1.3 mg/dL 0.3 0.2 0.2 Alkaline Phosphatase 34 - 123 U/L 54 58 82 AST 13 - 35 U/L 24 16 21 ALT 7 - 38 U/L 11 17 20 Glucose 74 - 99 mg/dL 91 93 87 BUN 7 - 21 mg/dL 18 16 16 Creatinine 0.58 - 0.96 mg/dL 0.70 0.72 0.73 Sodium 136 - 144 mmol/L 137 139 135 (L) Potassium 3.7 - 5.1 mmol/L 4.6 4.9 4.7 Chloride 98 - 107 mmol/L 107 (H) 104 102 CO2 22 - 30 mmol/L 17 (L) 22 22 Anion Gap 8 - 15 mmol/L 13 13 11 eGFR >=60 mL/min/1.73m 115 111 108 Cholesterol, Total <200 mg/dL 214 (H) 189 273 (H) Triglyceride <150 mg/dL 152 (H) 145 142 HDL Cholesterol >39 mg/dL 57 44 72 Non HDL Cholesterol <130 mg/dL 157 (H) 145 (H) 201 (H) Fasting Time hrs 12 12 12 VLDL Cholesterol <30 mg/dL 30 (H) 29 28 TC:HDL Ratio <5.10 3.75 4.30 3.79 LDL Cholesterol <100 mg/dL 127 (H) 116 (H) 173 (H) LDL:HDL Ratio <2.54 2.23 2.64 (H) 2.40 Iron 41 - 186 ug/dL 92 TIBC 232 - 386 ug/dL 409 (H) Transferrin Saturation 15.0 - 57.0 % 22.5 Hemoglobin A1C 4.3 - 5.6 % 4.8 Estimated Average Glucose mg/dL 91 TSH 0.270 - 4.200 mIU/L 1.630 Vitamin D 25 Hydroxy 31.0 - 80.0 ng/mL 22.2 (L) 19.3 (L) Vitamin B12 232 - 1,245 pg/mL 413 Free T3 2.3 - 4.1 pg/mL 3.1 Free T4 0.9 - 1.7 ng/dL 1.1 ASSESSMENT/PLAN: 1. Wellness examination - ICD9: V70.0, ICD10: Z00.00 (primary diagnosis) - Counseled on healthy diet and regular exercise Recommend a plant based diet such as Mediterranean diet with plenty of vegetables, fruits,whole grains, fish, chicken, turkey or plant proteins and routine exercise such as walking 2. Anxiety attack - ICD9: 300.01, ICD10: F41.0 - HYDROXYZINE HCL 10 MG TABLET 3. Anxiety and depression - ICD9: 300.00, 311, ICD10: F41.9, F32.A - BUPROPION XL 150 MG TAB - SERTRALINE 50 MG TABLET Continue with current treatments unchanged for now. Continue to monitor. 4. Class 2 obesity with body mass index (BMI) of 37.0 to 37.9 in adult, unspecified obesity type, unspecified whether serious comorbidity present - ICD9: 278.00, V85.37, ICD10: E66.9, Z68.37 Weight is stable. Notes Wellbutrin has helped with decreasing appetite for mild at least it. Discussed other options in addition to diet and exercise. Continue unchanged for now. Well check paperwork completed and provided back to her. Shefali Carvajal APRN.DATABASE TECHNICIAN Medical Decision Making: Medical Decision Making Level: 1 - N/A documented in this encounterCent[place]08-01-2024 Telephone encounter Note * Telephone Encounter - Susana Peters LPN - 09/06/2023 12:14 PM EDT Patient notified of lab orders, verbalizes understanding of instructions. Susana Peters LPN [place]08-01-2024 Miscellaneous Notes* Telephone Encounter - Susana Peters LPN - 09/06/2023 12:14 PM EDT Patient notified of lab orders, verbalizes understanding of instructions. Susana Peters LPN * Telephone Encounter - Susana Peters LPN - 09/06/2023 12:09 PM EDT TC to pt. LM to call office, ask for triage nurse to get results. * Telephone Encounter - Shefali Carvajal APRN.CNS - 09/06/2023 11:33 AM EDT [place] * Telephone Encounter - Radha Mae LPN - 09/05/2023 10:47 AM EDT Patient has upcoming physical for insurance and there is required lab work they need completed. Asking if a CMP and Lipid pnael can be placed for her to have completed tomorrow. Appointment for physical is 09/09. Please advise. documented in this encounterCenterville08-01-2024 Telephone encounter Note * Telephone Encounter - Susana Peters LPN - 09/06/2023 12:09 PM EDT TC to pt. LM to call office, ask for triage nurse to get results. [place]08-01-2024 Telephone encounter Note* Telephone Encounter - Shefali Carvajal APRN.CNS - 09/06/2023 11:33 AM EDT [place]07-31-2024 Telephone encounter Note* Telephone Encounter - Radha Mae LPN - 09/05/2023 10:47 AM EDT Patient has upcoming physical for insurance and there is required lab work they need completed. Asking if a CMP and Lipid pnael can be placed for her to have completed tomorrow. Appointment for physical is 09/09. Please advise. [place]06-25-2024 Telephone encounter Note* Telephone Encounter - Savita Ayoub LPN - 07/31/2023 2:04 PM EDT Pt calling to let you know she is out of medication. Please refill. Savita Ayoub LPN The patient has been identified by name and date of : Yes Caregiver verified no other encounters exist for this prescription request: Yes Caregiver confirmed with patient/requestor that no other refills are due, in the near future, with this provider at this time: Yes The last office visit in the department: 01/18/2023 Does the patient have a future office visit with this provider/department: Yes 09/10/2023 Requested Prescriptions Pending Prescriptions Disp Refills hydrOXYzine HCl (ATARAX) 10 mg tablet 90 tablet 0 Sig: Take 1-2 tablets by mouth three times a day as needed for anxiety. Savita Ayoub LPN July 31, 2023 2:04 PM [place]06-25-2024 Miscellaneous Notes* Telephone Encounter - Savita Ayoub LPN - 07/31/2023 2:04 PM EDT Pt calling to let you know she is out of medication. Please refill. Savita Ayoub LPN The patient has been identified by name and date of : Yes Caregiver verified no other encounters exist for this prescription request: Yes Caregiver confirmed with patient/requestor that no other refills are due, in the near future, with this provider at this time: Yes The last office visit in the department: 01/18/2023 Does the patient have a future office visit with this provider/department: Yes 09/10/2023 Requested Prescriptions Pending Prescriptions Disp Refills hydrOXYzine HCl (ATARAX) 10 mg tablet 90 tablet 0 Sig: Take 1-2 tablets by mouth three times a day as needed for anxiety. Savita Ayoub LPN July 31, 2023 2:04 PM documented in this encounterCenterville05-17-2024 History of Present illness Narrative* Sophie Arora MD - 06/22/2023 12:49 PM EDT Solar Lab Technician offered: Patient declines. Sasha Rachel is a 38 year old female who presents for problem visit - worsening prolapse. HPI: Feels a protrusion from the vagina, and a stinging type pain. Would like checked for prolapse and has questions about pelvic floor PT. Denies urinary incontinence. No urinary symptoms. Bowel movements are more firm, but regular. No stool incontinence. Working on weight loss with weight management appointments. H/o VAVD 8 lb 13 oz. No abnormal vaginal bleeding. OB History T1 L1 SAB0 IAB0 Ectopic0 Multiple0 Live Births1 Sausage Stringer History LMP: 03/12/2023 (Within Days), Having periods Age at Menarche: Age at First : Age at Menopause: Sausage Stringer History Comments: Sexual Activity: Yes; Male Contraception: Pill PAST MEDICAL HISTORY Diagnosis Date Abnormal Pap smear of cervix 2004 Allergic rhinitis due to other allergen Depressive disorder, not elsewhere classified Fibromyalgia Food poisoning 2014 Irritable bowel syndrome Myalgia and myositis, unspecified Other chronic sinusitis PAST SURGICAL HISTORY Procedure Laterality Date HYSTEROSCOPY BX ENDOMETRIUM&/POLYPC W/WO D&C 09/18/2019 hysteroscopy D&C for AUP TONSILLECTOMY & ADENOIDECTOMY AGE 12/> 1996 FAMILY HISTORY Problem Relation Age of Onset Breast Cancer Mother other (hypercholesterolemia) Mother diet controlled Obesity Mother Parkinson s Disease Father Prostate Cancer Father Obesity Father other (overweight) Sister Heart Maternal Grandmother Obesity Maternal Grandmother Psychiatry Maternal Grandfather Obesity Maternal Grandfather Hypertension Paternal Grandmother Heart Paternal Grandmother Obesity Paternal Grandmother Heart Paternal Grandfather Obesity Paternal Grandfather Autism Son Social History Tobacco Use Smoking status: Never Smokeless tobacco: Never Vaping Use Vaping Use: Never used Substance Use Topics Alcohol use: Yes Comment: Occasionally, but not while Drug use: No Current Outpatient Medications Medication Sig hydrOXYzine HCl (ATARAX) 10 mg tablet Take 1-2 tablets by mouth three times a day as needed for anxiety. norgestimate 0.25 mg-ethinyl estradiol 35 mcg (SPRINTEC) 0.25-35 mg-mcg per tablet Take 1 tablet bymouth once daily. ondansetron orally disintegrating (ZOFRAN ODT) 4 mg disintegrating tablet Take 1 tablet by mouth every 6 hours as needed for nausea/vomiting. cetirizine (ZYRTEC) 10 mg tablet Take 1 tablet by mouth once daily. sertraline (ZOLOFT) 100 mg tablet Take 0.5 tablets by mouth once daily. buPROPion XL (WELLBUTRIN XL) 150 mg 24 hr tablet Take 1 tablet by mouth once daily. cholecalciferol (VITAMIN D3) 5,000 unit tab Take 1 tablet by mouth once daily. Magnesium 250 mg tab Take 2 tablets by mouth once daily. for anxiety / depression ibuprofen (MOTRIN) 200 mg tablet Take 4 tablets by mouth every 8 hours as needed for pain (headache). Take with food. albuterol HFA (PROAIR HFA) 90 mcg/actuation inhaler Inhale 2 Puffs as instructed every 6 hours as needed. No current facility-administered medications for this visit. Allergies As of Date: 06/22/2023 Allergen Noted Reaction MOLD 09/18/2019 Other: See Comments SEASONAL ALLERGIES 07/02/2020 Other: See Comments Fully Assessed 06/22/2023 REVIEW OF SYSTEMS Expanded ROS: N/A Allergies and current medication updated:Yes EXAM: BP 110/78 Wt 249 lb 9.6 oz (113.2kg) LMP 03/12/2023 GENERAL: pleasant, female in no apparent distress HEENT: Normocephalic and atraumatic NECK: full range of motion DERMATOLOGY: Normal and without lesions CHEST: Normal inspiratory effort PELVIC: external genitalia normal, normal Bartholin's glands, urethra, [place]'s glands, no vulvar lesions, no cervical lesions, good vaginal support, physiologic discharge present, normal appearing perineal body and perianal region BIMANUAL: uterus normal size, shape and consistency, no adnexal masses, and non-tender NEURO: exam grossly non-focal EXTREMITIES: normal ASSESSMENT AND PLAN: Encounter Diagnosis ICD-10-CM 1. Vaginal discomfort N94.9 CONSULT TO PHYSICAL THERAPY Discussed limitations with exam in dorsal lithotomy position. Continue to work on weight loss. Discussed importance of hydration and increasing fiber in diet. Referral placed to pelvic floor PT. RTO if symptoms change or worsen. Sophie Arora, Medical Decision Making: Problems: Low: Acute, uncomplicated illness or injury Data: Unique test(s) ordered: 1 Medical Decision Making Level: 2 - Straightforward documented in this encounterCenterville04-29-2024 Telephone encounter Note * Telephone Encounter - Soraida Shen RN - 06/04/2023 11:46 AM EDT Pt called in asking about refill request. [place]04-29-2024 Miscellaneous Notes* Telephone Encounter - Soraida Shen RN - 06/04/2023 11:46 AM EDT Pt called in asking about refill request. * Telephone Encounter - Siomara Nicole LPN - 06/04/2023 10:13 AM EDT Patient has been identified by name and date of : Yes, Patient phones for refill(s): Requested Prescriptions Pending Prescriptions Disp Refills hydrOXYzine HCl (ATARAX) 10 mg tablet 90 tablet 0 Sig: Take 1-2 tablets by mouth three times a day as needed for anxiety. Date of last office visit in primary care: 01/18/2023 Date of next office visit in primary care: 09/10/2023 Please advise. Thank you. Siomara Nicole LPN. documented in this encounterCenterville04-29-2024 Telephone encounter Note * Telephone Encounter - Siomara Nicole LPN - 06/04/2023 10:13 AM EDT Patient has been identified by name and date of : Yes, Patient phones for refill(s): Requested Prescriptions Pending Prescriptions Disp Refills hydrOXYzine HCl (ATARAX) 10 mg tablet 90 tablet 0 Sig: Take 1-2 tablets by mouth three times a day as needed for anxiety. Date of last office visit in primary care: 01/18/2023 Date of next office visit in primary care: 09/10/2023 Please advise. Thank you. Siomara Nicole LPN. [place]02-06-2024 History of Present illness Narrative* Adriana Clark APRN.AIR DEFENCE OFFICER - 03/13/2023 9:00 AM EST Solar Lab Technician offered: Patient declines. Sasha is a 38 year old who presents for an annual gynecologic exam without complaints. Menses: cycles every 28 days and 4-5 days of flow. Started mid-cycle spotting a few days ago which is unusual. Contraception: combined hormonal contraceptives HPV vaccine: No Last Pap: 12/01/2017 normal HPV: 11/27/2017 negative History of abnormal pap: Yes 2004 atypical endocervical glandular cells age 20 Last mammogram: 2019 normal dense breasts. Mother hx breast cancer negative genetic testing. Sexually active: Yes History of STDS: None Patient concerns for STD exposure: No. Time with current partner: 11 years Pain with intercourse: No Postcoital bleeding: No OB History T1 L1 SAB0 IAB0 Ectopic0 Multiple0 Live Births1 Sausage Stringer History LMP: 11/25/2022 (Within Days), Having periods Age at Menarche: Age at First : Age at Menopause: Sausage Stringer History Comments: Sexual Activity: Yes; Male Contraception: Pill PAST MEDICAL HISTORY Diagnosis Date Abnormal Pap smear of cervix 2004 Allergic rhinitis due to other allergen Depressive disorder, not elsewhere classified Fibromyalgia Food poisoning 2014 Irritable bowel syndrome Myalgia and myositis, unspecified Other chronic sinusitis PAST SURGICAL HISTORY Procedure Laterality Date HYSTEROSCOPY BX ENDOMETRIUM&/POLYPC W/WO D&C 09/18/2019 hysteroscopy D&C for AUP TONSILLECTOMY & ADENOIDECTOMY AGE 12/> 1996 FAMILY HISTORY Problem Relation Age of Onset Breast Cancer Mother other (hypercholesterolemia) Mother diet controlled Obesity Mother Parkinson s Disease Father Prostate Cancer Father Obesity Father other (overweight) Sister Heart Maternal Grandmother Obesity Maternal Grandmother Psychiatry Maternal Grandfather Obesity Maternal Grandfather Hypertension Paternal Grandmother Heart Paternal Grandmother Obesity Paternal Grandmother Heart Paternal Grandfather Obesity Paternal Grandfather Autism Son SOCIAL HISTORY Social History Tobacco Use Smoking status: Never Smokeless tobacco: Never Vaping Use Vaping Use: Never used Substance Use Topics Alcohol use: Yes Comment: Occasionally, but not while Drug use: No REVIEW OF SYSTEMS Abdomen: No abdominal pain, nausea, vomiting, diarrhea, or constipation. No bloating, early satiety, indigestion, or increased flatulence. Bladder: No dysuria, gross hematuria, urinary frequency, urinary urgency, or incontinence. Breast: No breast lumps, nipple d/c, overlying skin changes, redness or skin retraction. Allergies and current medication updated:Yes EXAM: BP 114/86 Ht 5' 8 (1.73m) Wt 249 lb (112.9kg) LMP 11/25/2022 BMI 37.87 kg/(m^2). GENERAL: pleasant, female in no apparent distress HEENT: Normocephalic, atraumatic, mucus membranes moist, and no lesions NECK: Supple, full range of motion, no adenopathy, and thyroid normal DERMATOLOGY: Normal, without lesions, non-icteric, and non-hirsute BREAST: soft, non-tender, symmetric, no dominant mass, normal nipple-areolar complex, no lymphadenopathy, and no nipple discharge CHEST: Normal inspiratory effort ABDOMEN: soft, non-tender, and no masses PELVIC: external genitalia normal, normal Bartholin's glands, urethra, [place]'s glands, no vulvar lesions, no cervical lesions, physiologic discharge present, normal appearing perineal body and perianal region. Small amount blood in vault. BIMANUAL: uterus normal size, shape and consistency, no adnexal masses, and non-tender RECTOVAGINAL: deferred. NEURO: alert and oriented x3,exam grossly non-focal EXTREMITIES: normal ASSESSMENT/PLAN: 1) Health maintenance: Pap done with HPV. Mammogram starting age 40. Nutrition, exercise and routine health maintenance exams reviewed. Is in weight management program. 2) Contraception: combined hormonal contraceptives. Contraceptive options reviewed and information provided. 3) STD screening: Declined STD check. 4) Follow up one year or sooner as needed Adriana Clark APRN.AIR DEFENCE OFFICER documented in this encounterCenterville12-20-2023 Miscellaneous Notes* Telephone Encounter - Clara Landeros LPN - 01/24/2023 3:47 PM EST Seen at [facility] 01/21/23 & had a FU telephone call with MALVIN Dozier. Pt states she has norovirus & was given an Rx for zofran 4mg. Pt states she is doing some better, no vomiting but still has diarrhea & nausea. Pt is asking for a refill for zofran, order is pending. Please notify pt. Clara Landeros LPN documented in this encounterCenterville12-11-2023 Miscellaneous Notes* Telephone Encounter - Thi Young RN - 01/15/2023 4:51 PM EST Spoke with patient. Given message from provider's office. Patient verbalizes understanding. Thi Young RN * Telephone Encounter - Shefali Carvajal APRN.RASHEL - 01/15/2023 4:35 PM EST Recommend stop using bleaching product. Can use cream if needed on affected areas. * Telephone Encounter - Soraida Shen RN - 01/15/2023 3:58 PM EST Pt s called in and reports Pt has been using a high powered bleaching shampoo to help turn her hair more blonde over time. He was asking if this could be irritating her skin. He states she had the same rash about a week ago. He thinks she was using the shampoo at this time\, then had stopped when she had the rash. Pt used the shampoo again on Sunday and Sunday had the rash again. Let him know to tell his not to use the shampoo until she hears from the provider. He states she has had problems where they had to change the laundry detergent, because it made her skin break out. He also states she had another spot show up, and he told her to use the cream on that spot too. Please call and advise. documented in this encounterCenterville12-11-2023 History of Present illness Narrative* Shefali Carvajal APRN.CNS - 01/15/2023 10:40 AM EST AMBULATORY TELEPHONE VISIT Sasha Rachel has consented to this telephone encounter. Persons Present: patient Chief Complaint/Reason: Cellulitis HPI: Presents today noting recurrence of cellulitis left upper arm. Did previously resolve with doxycycline treatment. Has been present in recurrence for about 1 day. Redness warmth and tenderness in the area. Exam: Erythema and tenderness to palpation left medial bicep. Approximately 1 to 2 inches in diameter Data Reviewed: EPIC chart Assessment: (L03.90) Cellulitis of skin (R21) Rash ASSESSMENT/PLAN: 1. Cellulitis of skin - ICD9: 682.9, ICD10: L03.90 - DOXYCYCLINE HYCLATE 100 MG TABLET 2. Rash - ICD9: 782.1, ICD10: R21 - DOXYCYCLINE HYCLATE 100 MG TABLET - TRIAMCINOLONE ACETONIDE 0.1 % TOPICAL CREAM Appears to be a folliculitis. Wash with soap and water, lightly scrub. No drainage is present. Afebrile. Repeat prior treatment which was effective. She will let us know if not continuing to improve. Shefali Carvajal APRN.CNS Total Time Spent: 19 minutes Shefali Carvajal APRN.CNS documented in this encounterCenterville11-27-2023 Miscellaneous Notes* Telephone Encounter - Cassi Riley APRN.CNP - 01/01/2023 1:11 PM EST Seen with [facility] documented in this encounterCenterville11-21-2023 History of Present illness Narrative* Adriana Clark APRN.AIR DEFENCE OFFICER - 12/26/2022 1:30 PM EST Some documentation from previous visit of 11/16/2022 was copied and pasted, documentation has been reviewed and edited as necessary for today's visit. Patient Summary: Sasha is a 37 year old Female who presents for follow-up evaluation of obesity/weight management to treat dyslipidemia, depression, anxiety, Vit D deficiency and prevent related co-morbidities. In our previous visits we have discussed lifestyle intervention including a nutrition r ecommendations and physical activity optimization. Her last office visit was 1 month ago. Assessment/plan from last visit: Bupropion 150 mg 24 hr tablet prescribed by PCP for depression/anxiety. She has had significant decrease in hunger and interest in food Sertraline - 50 mg daily Feeling good. Does acknowledge that she goes into a new situation full-force but finds it difficultto sustain the momentum. [facility] nutrition - awaiting phone call to schedule Interval History Initial B 1000 3 boiled eggs, 1 cup of tea with non-fat NS vanilla creamer 1 tsp and 1 ACV gummies S - none L - 1330 lunch meat/cheese or unbreaded fish/shrimp 1-2 pc pizza with broccoli or other green veg or 30 gm protein shake S - tea with SF vanilla creamer 1 tsp D - 1800 similar to breakfast with [place] or lunch S - none Fluids - tea with SF creamer, SF lemonade, water She feels the medication is helping to decrease hunger and decreased interest in food Exercise: stable cardio 20-30 min every other day Stress: decreased personal, work Sleep: increased 9 hours (well-rested) or 8 hours of interrupted sleep(tired). HELDER NO ; CPAP NO Declined sleep study with PCP due to $700 copay Weight loss since last vist: 11 lbs 12/26/2022 250 lb BMI 38.07 11/16/2022 261 lb BMI 39.72 WC 48 in 5% weight loss = 248 lbs, 10% weight loss = 235 lbs Anti-Obesity Medications >Phentermine: No uncontrolled HTN, No CVD Hx or hx of seizure disorder. No MAOI inhibitor use. No drug abuse hx. Crcl > 15. >Topiramate/zonisamide: No seizure or kidney stone hx. positive hx of migraines, positive hx of poor sleep. Is of Child bearing age - OCP. >Qsymia: see above >Contrave: No contraindications. Could affect mood. No uncontrolled HTN or hx of seizure disorder. No MAOI inhibitor use. No opiate use. >Saxenda/Wegovy/Ozempic: Cost. Ins coverage? >Metformin: No contraindications or medication interactions. eGFR > 30. Estimated Creatinine Clearance: 141.2 mL/min (based on SCr of 0.72 mg/dL). PAST MEDICAL HISTORY Diagnosis Date Abnormal Pap smear of cervix 2004 Allergic rhinitis due to other allergen Depressive disorder, not elsewhere classified Fibromyalgia Food poisoning 2014 Irritable bowel syndrome Myalgia and myositis, unspecified Other chronic sinusitis Current Outpatient Medications Medication Sig Dispense Refill doxycycline (VIBRA-TABS) 100 mg tablet Take 1 tablet by mouth two times a day for 10 days. 20 tablet 0 triamcinolone acetonide (KENALOG) 0.1 % cream Apply 1 application to affected area three times a day for 10 days. Apply sparingly to area for rash/itching. 80 g 0 sertraline (ZOLOFT) 100 mg tablet Take 0.5 tablets by mouth once daily. 90 tablet 3 buPROPion XL (WELLBUTRIN XL) 150 mg 24 hr tablet Take 1 tablet by mouth once daily. 90 tablet 3 norgestimate 0.25 mg-ethinyl estradiol 35 mcg (SPRINTEC) 0.25-35 mg-mcg per tablet Take 1 tablet bymouth once daily. 84 tablet 3 miSOPROStol (CYTOTEC) 200 mcg tablet Insert 2 tablets vaginally night prior to IUD and 2 tablets morning of procedure. Each dose should be in vagina for 6-8 hours. 4 tablet 0 cholecalciferol (VITAMIN D3) 5,000 unit tab Take 1 tablet by mouth once daily. Magnesium 250 mg tab Take 2 tablets by mouth once daily. for anxiety / depression hydrOXYzine HCl (ATARAX) 10 mg tablet Take 1-2 tablets by mouth three times daily as needed for anxiety. 90 tablet 0 ibuprofen (MOTRIN) 200 mg tablet Take 4 tablets by mouth every 8 hours as needed for pain (headache). Take with food. albuterol HFA (PROAIR HFA) 90 mcg/actuation inhaler Inhale 2 Puffs as instructed every 6 hours as needed. 1 Inhaler 2 No current facility-administered medications for this visit. OCCUPATION [employer] (works from home) Current Contraception: Sprintec Obesity ROS/ FHx GEN: Fatigue:yes BP 120/80 Pulse 70 Wt 250 lb 6.4 oz (113.6 kg) LMP 11/25/2022 (Within Days) SpO2 97% BMI 38.07 kg/m Office Visit on 12/20/2022 Component Date Value Ref Range Status GLUCOSE UA (POCT) 12/20/2022 Negative Negative mg/dL Final BILIRUBIN UA (POCT) 12/20/2022 Negative Negative Final KETONE UA (POCT) 12/20/2022 15 (A) Negative mg/dL Final SPECIFIC GRAVITY UA (POCT) 12/20/2022 >=1.030 1.005 - 1.030 Final HEMOGLOBIN/BLOOD UA (POCT) 12/20/2022 Small (A) Negative Final PH UA (POCT) 12/20/2022 5.5 4.5 - 8.0 Final PROTEIN UA (POCT) 12/20/2022 30 (A) Negative mg/dL Final UROBILINOGEN UA (POCT) 12/20/2022 0.2 Normal E.U./dL Final NITRITE UA (POCT) 12/20/2022 Negative Negative Final LEUKOCYTES UA (POCT) 12/20/2022 Negative Negative Final COLOR UA (POCT) 12/20/2022 Yellow Final CLARITY UA (POCT) 12/20/2022 Clear Final Office Visit on 12/19/2022 Component Date Value Ref Range Status Herpes Simplex Virus 1 (HSV-1) DNA 12/19/2022 Not Detected Not Detected Final Herpes Simplex Virus 2 (HSV-2) DNA 12/19/2022 Not Detected Not Detected Final Varicella-Zoster Virus (VZV) DNA 12/19/2022 Not Detected Not Detected Final Assessment/Plan: Sasha Rachel is a 37 year old yo with Class II obesity who presented today for follow up for supervised weight loss to treat and prevent related co-morbidities. ASSESSMENT/PLAN: 1. Dyslipidemia - ICD9: 272.4, ICD10: E78.5 (primary diagnosis) - benefits of weight loss discussed 2. Depression, unspecified depression type - ICD9: 311, ICD10: F32.A - Continue bupropion and sertraline 3. Anxiety - ICD9: 300.00, ICD10: F41.9 - Continue bupropion and sertraline 4. Vitamin D deficiency - ICD9: 268.9, ICD10: E55.9 - Continue supplement 5. Class 2 obesity without serious comorbidity with body mass index (BMI) of 39.0 to 39.9 in adult,unspecified obesity type - ICD9: 278.00, V85.39, ICD10: E66.9, Z68.39 - Bupropion 150 mg 24 hr tablet prescribed by PCP for depression/anxiety has resulted in a significant decrease in hunger and interest in food - Nutrition consult [facility] Whole food balanced protein low-carb nutrition - Continue to increase activity Prescription instructions reviewed with patient as applicable. Potential red flag symptoms discussed with the patient. Reviewed appropriate action plan to take ifred flag symptoms occur. Patient agreeable to treatment plan. Follow up in 2-3 months Adriana Clark APRN.HERSON Advanced Education from the [employer] I spent a total of 38 minutes on the date of the service which included preparing to see the patient, [id number] patient care, completing clinical documentation, obtaining and/or reviewing separately obtained history, performing a medically appropriate examination, and counseling and educating the patient/family/caregiver. documented in this encounterCenterville11-15-2023 History of Present illness Narrative* Quita Dueñas APRN.CNP - 12/20/2022 12:44 PM EST Chief Complaint Patient presents with: Rash: Itchiness of Left upper arm HPI Sasha Rachel is a 37 year old female who presents here today for Above Complaints.. Per visit in [facility] Care yesterday 12/19/2022: HPI HPI Sasha Rachel is a 37 year old female who presents today for CC of itchy tender rash. This started today. Has tried nothing for relief. Symptoms are worsened by nothing. Risk factors reports being a bad reactor to bug bites. Has had chicken pox as child. Denies possibility of being . .Patient presents with: Rash: Left upper arm swelling, redness, warm since this AM ASSESSMENT/PLAN: 1. Rash - ICD9: 782.1, ICD10: R21 Unclear etiology Shingles vs contact derm vs insect bite. If pos for shingles should be in treatment window, today day 1. - HSV1,2/VZV NAAT LESION - TRIAMCINOLONE ACETONIDE 0.1 % TOPICAL CREAM Satya Catalan APRN.AIR DEFENCE OFFICER Today: Woke up yesterday morning with rash to her left posterior upper arm. Rash started just prior to COVID and flu shots yesterday. Doesn't feel this is r/t the shots. Seems to be getting a little bigger and is red, warm. Does have some small blisters but no drainage. Does itch quite a bit. Is tender totouch. Calderon a little bit. Used the triamcinolone cream she was given in express care yesterday andthis helped with her sx but lasted for only 10 minutes. Has been applying ice which has been helpful for her sx. For the past few days has had some greenish colored vaginal drainage and foul odor. No itching or pain with urination, denies other urinary sx. Past medical history, appointments, medications, allergies reviewed. Previous Medical History PAST MEDICAL HISTORY Diagnosis Date Abnormal Pap smear of cervix 2004 Allergic rhinitis due to other allergen Depressive disorder, not elsewhere classified Fibromyalgia Food poisoning 2014 Irritable bowel syndrome Myalgia and myositis, unspecified Other chronic sinusitis Previous Surgical History PAST SURGICAL HISTORY Procedure Laterality Date HYSTEROSCOPY BX ENDOMETRIUM&/POLYPC W/WO D&C 09/18/2019 hysteroscopy D&C for AUP TONSILLECTOMY & ADENOIDECTOMY AGE 12/> 1996 Family History FAMILY HISTORY Problem Relation Age of Onset Breast Cancer Mother other (hypercholesterolemia) Mother diet controlled Obesity Mother Parkinson s Disease Father Prostate Cancer Father Obesity Father other (overweight) Sister Heart Maternal Grandmother Obesity Maternal Grandmother Psychiatry Maternal Grandfather Obesity Maternal Grandfather Hypertension Paternal Grandmother Heart Paternal Grandmother Obesity Paternal Grandmother Heart Paternal Grandfather Obesity Paternal Grandfather Autism Son Patient Allergies ALLERGIES Allergen Reactions Cats Other: See Comments Grass Pollen Other: See Comments Mold Other: See Comments Seasonal Allergies Other: See Comments Current Medications Current Outpatient Medications on File Prior to Visit Medication Sig triamcinolone acetonide (KENALOG) 0.1 % cream Apply 1 application to affected area three times a day for 10 days. Apply sparingly to area for rash/itching. sertraline (ZOLOFT) 100 mg tablet Take 0.5 tablets by mouth once daily. buPROPion XL (WELLBUTRIN XL) 150 mg 24 hr tablet Take 1 tablet by mouth once daily. norgestimate 0.25 mg-ethinyl estradiol 35 mcg (SPRINTEC) 0.25-35 mg-mcg per tablet Take 1 tablet bymouth once daily. miSOPROStol (CYTOTEC) 200 mcg tablet Insert 2 tablets vaginally night prior to IUD and 2 tablets morning of procedure. Each dose should be in vagina for 6-8 hours. cholecalciferol (VITAMIN D3) 5,000 unit tab Take 1 tablet by mouth once daily. Magnesium 250 mg tab Take 2 tablets by mouth once daily. for anxiety / depression hydrOXYzine HCl (ATARAX) 10 mg tablet Take 1-2 tablets by mouth three times daily as needed for anxiety. ibuprofen (MOTRIN) 200 mg tablet Take 4 tablets by mouth every 8 hours as needed for pain (headache). Take with food. albuterol HFA (PROAIR HFA) 90 mcg/actuation inhaler Inhale 2 Puffs as instructed every 6 hours as needed. No current facility-administered medications on file prior to visit. Social History Social History Tobacco Use Smoking status: Never Smokeless tobacco: Never Vaping Use Vaping Use: Never used Substance Use Topics Alcohol use: Yes Comment: Occasionally, but not while Drug use: No Review of Symptoms REVIEW OF SYSTEMS See HPI, otherwise negative EXAM: BP 132/80 (BP Site: Left Arm, BP Position: Sitting, BP Cuff Size: Regular Adult) Pulse 84 Resp 16 Wt 113.1 kg (249 lb 6.4 oz) LMP 11/25/2022 (Within Days) SpO2 97% BMI 37.92 kg/m General Appearance: Well appearing, alert, in no acute distress, well-hydrated, well nourished. andObese. Skin: posterior left upper arm reddened approximately 1/2 dollar size area, small clear blisters, no drainage, warm to the touch, approximate 1.5 inch reddened area surrounding rash Psychiatric: pleasant, cooperative. Health Maintenance List Hepatitis B Vaccine(1 of 3 - 3-dose series) Never done Pap Testing due on 11/23/2022 HPV Testing due on 11/23/2022 DTaP,Tdap,Td Vaccine(2 - Td or Tdap) due on 07/18/2028 Influenza Vaccine Completed HIV Screening Completed Covid-19 Vaccine Completed HPV Vaccine Aged Out Hepatitis C Screening Discontinued Data reviewed Previous records, office notes ASSESSMENT/PLAN: 1. Cellulitis of skin - ICD9: 682.9, ICD10: L03.90 (primary diagnosis) - Begin treatment with per below - No lymphangetic streaking, this was defined for patient to watch for and to seek medical care immediately if appears - Area of cellulitis defined with pen, seek further attention if this area continues to enlarge - ok to continue with ice for symptomatic relief Continue topical triamcinolone - DOXYCYCLINE HYCLATE 100 MG TABLET - TRIAMCINOLONE ACETONIDE 40 MG/ML SUSPENSION FOR INJECTION 2. Rash - ICD9: 782.1, ICD10: R21 - Begin treatment with per below - No lymphangetic streaking, this was defined for patient to watch for and to seek medical care immediately if appears - Area of cellulitis defined with pen, seek further attention if this area continues to enlarge - ok to continue with ice for symptomatic relief Continue topical triamcinolone - DOXYCYCLINE HYCLATE 100 MG TABLET - TRIAMCINOLONE ACETONIDE 40 MG/ML SUSPENSION FOR INJECTION 3. Bad odor of urine - ICD9: 791.9, ICD10: R82.90 UA negative. Suspect possible BV. Suspect doxycycline will improve sx. If no improvement, discussed with patient that vaginal exam and swabs likely necessary at that point. - UA DIP, URINE (POC) - URINE CULTURE 4. Vaginal discharge - ICD9: 623.5, ICD10: N89.8 UA negative. Suspect possible BV. Suspect doxycycline will improve sx. If no improvement, discussed with patient that vaginal exam and swabs likely necessary at that point. - UA DIP, URINE (POC) - URINE CULTURE Quita Dueñas APRN.CNP documented in this encounterCenterville11-15-2023 Miscellaneous Notes* Telephone Encounter - Susana Peters LPN - 12/20/2022 11:32 AM EST Patient notified of results, verbalizes understanding of instructions. Susana Peters LPN * Telephone Encounter - Niko Bojorquez PA - 12/20/2022 10:21 AM EST Please let patient know that shingles and herpes are negative. documented in this encounterCenterville11-14-2023 History of Present illness Narrative* Satya Catalan APRN.HERSON - 12/19/2022 6:47 PM EST Images from the original note were not included. Subjective HPI HPI Sasha Rachel is a 37 year old female who presents today for CC of itchy tender rash. This started today. Has tried nothing for relief. Symptoms are worsened by nothing. Risk factors reports being a bad reactor to bug bites. Has had chicken pox as child. Denies possibility of being . .Patient presents with: Rash: Left upper arm swelling, redness, warm since this AM PAST MEDICAL HISTORY Diagnosis Date Abnormal Pap smear of cervix 2004 Allergic rhinitis due to other allergen Depressive disorder, not elsewhere classified Fibromyalgia Food poisoning 2014 Irritable bowel syndrome Myalgia and myositis, unspecified Other chronic sinusitis PAST SURGICAL HISTORY Procedure Laterality Date HYSTEROSCOPY BX ENDOMETRIUM&/POLYPC W/WO D&C 09/18/2019 hysteroscopy D&C for AUP TONSILLECTOMY & ADENOIDECTOMY AGE 12/> 1996 ALLERGIES Cats, Grass Pollen, Mold, and Seasonal Allergies MEDICATIONS sertraline (ZOLOFT) 100 mg tablet Take 0.5 tablets by mouth once daily. buPROPion XL (WELLBUTRIN XL) 150 mg 24 hr tablet Take 1 tablet by mouth once daily. norgestimate 0.25 mg-ethinyl estradiol 35 mcg (SPRINTEC) 0.25-35 mg-mcg per tablet Take 1 tablet bymouth once daily. miSOPROStol (CYTOTEC) 200 mcg tablet Insert 2 tablets vaginally night prior to IUD and 2 tablets morning of procedure. Each dose should be in vagina for 6-8 hours. cholecalciferol (VITAMIN D3) 5,000 unit tab Take 1 tablet by mouth once daily. Magnesium 250 mg tab Take 2 tablets by mouth once daily. for anxiety / depression hydrOXYzine HCl (ATARAX) 10 mg tablet Take 1-2 tablets by mouth three times daily as needed for anxiety. ibuprofen (MOTRIN) 200 mg tablet Take 4 tablets by mouth every 8 hours as needed for pain (headache). Take with food. albuterol HFA (PROAIR HFA) 90 mcg/actuation inhaler Inhale 2 Puffs as instructed every 6 hours as needed. triamcinolone acetonide (KENALOG) 0.1 % cream Apply 1 application to affected area three times a day for 10 days. Apply sparingly to area for rash/itching. FAMILY HISTORY Problem Relation Age of Onset Breast Cancer Mother other (hypercholesterolemia) Mother diet controlled Obesity Mother Parkinson s Disease Father Prostate Cancer Father Obesity Father other (overweight) Sister Heart Maternal Grandmother Obesity Maternal Grandmother Psychiatry Maternal Grandfather Obesity Maternal Grandfather Hypertension Paternal Grandmother Heart Paternal Grandmother Obesity Paternal Grandmother Heart Paternal Grandfather Obesity Paternal Grandfather Autism Son Social History Tobacco Use Smoking status: Never Smokeless tobacco: Never Vaping Use Vaping Use: Never used Substance Use Topics Alcohol use: Yes Comment: Occasionally, but not while Drug use: No Review of Systems Constitutional: Negative for fever. Objective Blood pressure 118/87, pulse 92, temperature 36.6 C (97.8 F), resp. rate 18, weight 112.9 kg (249 lb), last menstrual period 11/25/2022, SpO2 100 %. Physical Exam Constitutional: General: She is not in acute distress. Appearance: She is not toxic-appearing or diaphoretic. HENT: Head: Normocephalic and atraumatic. Pulmonary: Effort: Pulmonary effort is normal. No accessory muscle usage or respiratory distress. Skin: Neurological: Mental Status: She is alert and oriented to person, place, and time. ASSESSMENT/PLAN: 1. Rash - ICD9: 782.1, ICD10: R21 Unclear etiology Shingles vs contact derm vs insect bite. If pos for shingles should be in treatment window, today day 1. - HSV1,2/VZV NAAT LESION - TRIAMCINOLONE ACETONIDE 0.1 % TOPICAL CREAM Satya Catalan APRN.AIR DEFENCE OFFICER documented in this encounterCenterville10-30-2023 History of Present illness Narrative* Shefali Carvajal, MARQUISE.DATABASE TECHNICIAN - 12/04/2022 12:04 PM EDT AMBULATORY TELEPHONE VISIT Sasha Rachel has consented to this telephone encounter. Persons Present: patient Chief Complaint/Reason: recheck SUBJECTIVE: Hepatitis B Vaccine(1 of 3 - 3-dose series) Never done Influenza Vaccine(1) due on 10/06/2022 Covid-19 Vaccine(2022- season) due on 10/06/2022 Pap Testing due on 11/23/2022 HPV Testing due on 11/23/2022 HPI Sasha Rachel is a 37 year old female. PMH significant for ACTIVE PROBLEM LIST Fibromyalgia Anxiety and Depression Anxiety Numbness and Tingling of Lower Extremity Class 2 Obesity With Body Mass Index (Bmi) of 38.0 to 38.9 in Adult Seen by Cassi Riley CNP August 02, 2022 for anxiety. Ordered hydroxyzine and Lamictal. Labs completed HSAT ordered. Vitamin D and iron levels were noted to be low. She noted stress at work and home and trying to find a balance. Was sleeping better. Some feeling tired with new medications. She reported changing counselor and working on stress management. No voiced SI/HI. Has seen in Adriana Clark NURSING INSTRUCTOR provider. Last visit August 18, 2022. Discussed IUD. Discussed weight gain, noted with Zoloft and lamotrigine. Seen in [facility] care September 23, 2022. Reported sore throat chills fever body aches x1 day, fatigue x1 week. Treated with Toradol for headache in office. Strep and COVID were negative. Notes difficulty with weight loss and adhering to exercise. No current routine exercise. Does try to eat a healthy diet.Notes she is stress eating. Notes child with diagnosis of autism requiring lots of support Today reports sore throat is persisting. Fatigue is persisting. She reports taking vitamin D. Stopped taking hydroxyzine during the day as it was making her drowsy. Notes anxiety and depression. She stopped taking lamotrigine as it made her feel angry. Continued on Zoloft. Continues seeing counselor currently. No voiced SI HI. At her last visit she noted feeling improved on sertraline. She wanted to continue on the dose unchanged. Reported intermittent use of hydroxyzine. Noted that her counselor recommended she may want to consider bupropion. Counselor asked her to note triggers and to address those as able. She reports feeling well with bupropion. She reports decreasing dose of sertraline from 100 to 50 mg daily. She has been exercising riding stationary bike and eating a healthy diet, feeling better. She reports losing 13 pounds since we last spoke. Review of Systems Psychiatric/Behavioral: Negative for dysphoric mood. The patient is not nervous/anxious. Objective LMP 10/26/2022 (Within Days) Physical Exam Constitutional: Appearance: Normal appearance. Eyes: Conjunctiva/sclera: Conjunctivae normal. Pulmonary: Effort: Pulmonary effort is normal. Neurological: General: No focal deficit present. Mental Status: She is alert and oriented to person, place, and time. ALLERGIES Allergen Reactions Cats Other: See Comments Grass Pollen Other: See Comments Mold Other: See Comments Seasonal Allergies Other: See Comments Medications norgestimate 0.25 mg-ethinyl estradiol 35 mcg (SPRINTEC) 0.25-35 mg-mcg per tablet Take 1 tablet bymouth once daily. buPROPion XL (WELLBUTRIN XL) 150 mg 24 hr tablet Take 1 tablet by mouth once daily. sertraline (ZOLOFT) 100 mg tablet Take 1 tablet by mouth once daily. miSOPROStol (CYTOTEC) 200 mcg tablet Insert 2 tablets vaginally night prior to IUD and 2 tablets morning of procedure. Each dose should be in vagina for 6-8 hours. cholecalciferol (VITAMIN D3) 5,000 unit tab Take 1 tablet by mouth once daily. Magnesium 250 mg tab Take 2 tablets by mouth once daily. for anxiety / depression hydrOXYzine HCl (ATARAX) 10 mg tablet Take 1-2 tablets by mouth three times daily as needed for anxiety. ibuprofen (MOTRIN) 200 mg tablet Take 4 tablets by mouth every 8 hours as needed for pain (headache). Take with food. albuterol HFA (PROAIR HFA) 90 mcg/actuation inhaler Inhale 2 Puffs as instructed every 6 hours as needed. PAST MEDICAL HISTORY Diagnosis Date Abnormal Pap smear of cervix 2004 Allergic rhinitis due to other allergen Depressive disorder, not elsewhere classified Fibromyalgia Food poisoning 2014 Irritable bowel syndrome Myalgia and myositis, unspecified Other chronic sinusitis Social History Tobacco Use Smoking status: Never Smokeless tobacco: Never Vaping Use Vaping Use: Never used Substance Use Topics Alcohol use: Yes Comment: Occasionally, but not while Drug use: No Component Latest Ref Rng & Units 09/17/2021 07/12/2022 09/22/2022 09/23/2022 WBC 3.70 - 11.00 k/uL 7.12 RBC 3.90 - 5.20 m/uL 4.73 Hemoglobin 11.5 - 15.5 g/dL 14.2 Hematocrit 36.0 - 46.0 % 46.1 (H) MCV 80.0 - 100.0 fL 97.5 MCH 26.0 - 34.0 pg 30.0 MCHC 30.5 - 36.0 g/dL 30.8 RDW-CV 11.5 - 15.0 % 13.6 Platelet Count 150 - 400 k/uL 236 MPV 9.0 - 12.7 fL 11.0 Neut% % 63.0 Abs Neut (ANC) 1.45 - 7.50 k/uL 4.48 Lymph% % 25.8 Abs Lymph 1.00 - 4.00 k/uL 1.84 Searcy% % 8.1 Abs [place] <0.87 k/uL 0.58 Eosin% % 2.5 Abs Eosin <0.46 k/uL 0.18 Baso% % 0.3 Abs Baso <0.11 k/uL <0.03 Immature Gran % % 0.3 IMMATURE GRANS (ABS) <0.10 k/uL <0.03 NRBC /100 WBC 0.0 Absolute nRBC <0.01 k/uL <0.01 DTYPE Auto Protein, Total 6.3 - 8.0 g/dL 7.5 6.9 Albumin 3.9 - 4.9 g/dL 4.1 4.4 Calcium 8.5 - 10.2 mg/dL 9.0 9.1 Bilirubin, Total 0.2 - 1.3 mg/dL 0.3 0.2 Alkaline Phosphatase 34 - 123 U/L 54 58 AST 13 - 35 U/L 24 16 ALT 7 - 38 U/L 11 17 Glucose 74 - 99 mg/dL 91 93 BUN 7 - 21 mg/dL 18 16 Creatinine 0.58 - 0.96 mg/dL 0.70 0.72 Sodium 136 - 144 mmol/L 137 139 Potassium 3.7 - 5.1 mmol/L 4.6 4.9 Chloride 97 - 105 mmol/L 107 (H) 104 CO2 22 - 30 mmol/L 17 (L) 22 Anion Gap 9 - 18 mmol/L 13 13 eGFR >=60 mL/min/1.73m 115 111 Cholesterol, Total <200 mg/dL 214 (H) 189 Triglyceride <150 mg/dL 152 (H) 145 HDL Cholesterol >39 mg/dL 57 44 Non HDL Cholesterol <130 mg/dL 157 (H) 145 (H) Fasting Time hrs 12 12 VLDL Cholesterol <30 mg/dL 30 (H) 29 TC:HDL Ratio <5.10 3.75 4.30 LDL Cholesterol <100 mg/dL 127 (H) 116 (H) LDL:HDL Ratio <2.54 2.23 2.64 (H) Iron 41 - 186 ug/dL 92 TIBC 232 - 386 ug/dL 409 (H) Transferrin Saturation 15.0 - 57.0 % 22.5 Hemoglobin A1C 4.3 - 5.6 % 4.8 Estimated Average Glucose mg/dL 91 Strep A (POCT) Negative Negative Procedural Control Valid TSH 0.270 - 4.200 mIU/L 1.630 Vitamin D 25 Hydroxy 31.0 - 80.0 ng/mL 22.2 (L) Vitamin B12 232 - 1,245 pg/mL 413 Free T3 2.3 - 4.1 pg/mL 3.1 Free T4 0.9 - 1.7 ng/dL 1.1 ASSESSMENT/PLAN: 1. Anxiety and depression F41.9, F32.A Primary diagnosis She notes feeling improved. Continue with sertraline 50 mg daily. Bupropion XL 150 mg daily. Taking Tylenol PM at night for sleep. This has been helpful, sleeping better than she has for 3 years. She has been exercising feeling well with this. Previously advised to start walking or biking daily, start with a few minutes and slowly increase to 30 to 60 minutes daily. Watch portion sizes of your food Eat a plant-based diet such as Mediterranean diet She has a dietitian visit scheduled. She also has a NURSING INSTRUCTOR appointment scheduled as well. 2. Obesity, class II BMI 38.0-38.9 in adult Reports weight loss on bupropion, change in diet and exercise. Data Reviewed: EPIC chart Total Time Spent: 20 minutes Shefali Carvajal APRN.CNS Medical Decision Making: Medical Decision Making Level: 1 - N/A documented in this encounterCenterville10-12-2023 History of Present illness Narrative* Adriana Clark APRN.AIR DEFENCE OFFICER - 11/16/2022 1:02 PM EDT Images from the original note were not included. Patient Summary: Sasha Rachel is a 37 year old female with obesity who presents for an initial evaluation of overweight/obesity to treat and prevent co-morbidities and is interested in open to all options. Motivation for seeking treatment for the disease of overweight/obesity : increase energy and feel better about self, lengthening her life especially with autistic child. Goal weight: 180 Lowest recall weight: 168 Highest recall weight: 261 lb Patient identified barriers to weight loss: stress - working with therapist, lack of energy Weight History: She reports a strong family history of obesity and early adulthood weight gain. She states her weight gain is related to the following factors, including weight retention , exposure to a weight gain promoting medication, SSRI';s. , reduced physical activity, and consumption of unhealthy foods. - Last Wt 11/16/22 : 261 lb 3.2 oz (118.5 kg) 5% weight loss = 248 lbs, 10% weight loss = 235 lbs WEIGHT GRAPH: Diet/Nutrition overview: Awake - 0700 if no mental trigger the day before 1000 if struggle day( triggered the previous day and then awoke at 0300, ate snack such as cheese/crackers and OJ or something sweet) B - 1000 2 eggs, light cheese, [place], thin pretzel bun, 8 oz OJ, tea with SF vanilla creamer (12 WWpoints) S - none L - 1330 1-2 pc pizza or [employer] mac n cheese with BB pulled pork or soup with bread or shrimp with broccoli (12-16 WW points) S - tea with SF vanilla creamer D - 1800 similar to breakfast or lunch but a little smaller S - yogurt before bed Fluids - OJ, tea with SF creamer, SF lemonade, water Bedtime - 2200 Quality of diet: 24hr recall suggests somewhat healthy diet. Characterization of diet:Structured Supervisor Instrument Repair of impaired eating habits:excessive hunger, lack of satiety, emotion, and stress Eating Disorder night eating when stressed the day before to sooth self, anorexia in college Cravings: OJ, candy like Starbursts, cheesecake Sleep: Duration: 9 hours (well-rested) or 8 hours of interrupted sleep(tired). HELDER NO ; CPAP NO Declined sleep study with PCP due to $700 copay. Stress: Stress:yes , Cause:Personal, work Obesity Related Comorbidities: Prior Weight Loss Surgery:No PAST MEDICAL HISTORY Diagnosis Date Abnormal Pap smear of cervix 2004 Allergic rhinitis due to other allergen Depressive disorder, not elsewhere classified Fibromyalgia Food poisoning 2014 Irritable bowel syndrome Myalgia and myositis, unspecified Other chronic sinusitis PAST SURGICAL HISTORY Procedure Laterality Date HYSTEROSCOPY BX ENDOMETRIUM&/POLYPC W/WO D&C 09/18/2019 hysteroscopy D&C for AUP TONSILLECTOMY & ADENOIDECTOMY AGE 12/> 1996 FAMILY HISTORY Problem Relation Age of Onset Breast Cancer Mother other (hypercholesterolemia) Mother diet controlled Parkinson s Disease Father Prostate Cancer Father No Known Problems Sister Heart Maternal Grandmother Psychiatry Maternal Grandfather Hypertension Paternal Grandmother Heart Paternal Grandmother Heart Paternal Grandfather Autism Son Social History Tobacco Use Smoking status: Never Smokeless tobacco: Never Vaping Use Vaping Use: Never used Substance Use Topics Alcohol use: Yes Comment: Occasionally, but not while Drug use: No Medications: Prescribed bupropion but has not started yet Weight Promoting Medications: SSRI Diet/weight loss History: Past weight loss attempts? Commercial diets and self-directed exercise. Weight watchers, exercise Exercise: Regular exercise: yes - treadmill, exercise bike - 30 minutes 5 days a week for last week Strength/resistance exercise:no Barriers to regular exercise? Stressful work and home life Work-related activity: Sedentary. Gym Membership: no Activity Tracker: [employer] watch - does not usually wear OCCUPATION [employer] (works from home) Current Contraception: Sprintec Obesity ROS/ FHx GEN: Fatigue:yes CV: h/o palpitations/cardiac arrhythmia, Chest pain: no HTN: no PULM: Asthma:no GI: GERD:no ; Gallstones:no; Fatty liver disease:no Pancreatitis: no MSK: Joint Pain: no : Nephrolithiasis: no Symptoms of PCOS: no NEURO: Migraines/KELLEY: no; H/o seizures: no Glaucoma:no; Cataracts no Symptoms of or History of pseudotumor cerebri:no Family or personal History of MEN2 or Medullary thyroid cancer: no PE BP 118/72 Pulse 81 Ht 5' 8 (1.727 m) Wt 261 lb 3.2 oz (118.5 kg) LMP 10/26/2022 (Within Days) SpO2 97% BMI 39.72 kg/m Weight Circumference: 48 in Neck Circumference: 14.75 in GENERAL: Female in NAD. Mixed central and gluteofemoral adiposity. SKIN: acanthosis nigricans no, Skin tags: no Hirsutism: yes HEENT: PERRL, No supraclavicular adiposity. No dorsal adiposity. RESPIRATORY: CBTA CARDIAC: RRR ABDOMEN: Small pannus; EXTREMITIES: peripheral edema: no Results: reviewed with the patient Office Visit on 09/23/2022 Component Date Value Ref Range Status Strep A (POCT) 09/23/2022 Negative Negative Final Procedural Control 09/23/2022 Valid Final SARS-CoV-2 (Agent of COVID-19) 09/23/2022 Not detected See comment Final Influenza A PCR 09/23/2022 Not detected Not Detected Final Influenza B PCR 09/23/2022 Not detected Not Detected Final RSV PCR 09/23/2022 Not detected Not Detected Final Appointment on 09/21/2022 Component Date Value Ref Range Status Cholesterol, Total 09/22/2022 189 <200 mg/dL Final Triglyceride 09/22/2022 145 <150 mg/dL Final HDL Cholesterol 09/22/2022 44 >39 mg/dL Final Non HDL Cholesterol 09/22/2022 145 (H) <130 mg/dL Final Fasting Time 09/22/2022 12 hrs Final VLDL Cholesterol 09/22/2022 29 <30 mg/dL Final TC:HDL Ratio 09/22/2022 4.30 <5.10 Final LDL Cholesterol 09/22/2022 116 (H) <100 mg/dL Final LDL:HDL Ratio 09/22/2022 2.64 (H) <2.54 Final Impression: Sasha Rachel is a 37 year old Female with Class II obesity (Body mass index is 39.72 kg/m .) who has adult onset obesity with several periods of weight loss followed by weight gain . The causes of her obesity are multifactorial, biological, psychological and social and environmental. Specific factors include a genetic component related to a strong family of obesity, exposure to weight gain promoting medication(s) , increased consumption of high calorie/process foods, suboptimal physical activity, and post weight retention. She has few weight-related medical comorbidities which increase her cardiovascular mortality risk. There are additional metabolic obesity complications including dyslipidemia and vitamin D deficiency. Other medical conditions as above. Regarding her lifestyle, as above, she has several behavioral contributors; her physical activity is suboptimal. Overall, it is clear that her quality of life is moderately compromised by her weight. It is likelya combination of weight loss therapies will be needed. She appears motivated today. ASSESSMENT/PLAN: 1. Dyslipidemia - ICD9: 272.4, ICD10: E78.5 (primary diagnosis) - benefits of weight loss discussed - CONSULT TO NUTRITION THERAPY 2. Depression, unspecified depression type - ICD9: 311, ICD10: F32.A - prescribed bupropion and will start it - continue sertraline - CONSULT TO NUTRITION THERAPY 3. Anxiety - ICD9: 300.00, ICD10: F41.9 See above - CONSULT TO NUTRITION THERAPY 4. Vitamin D deficiency - ICD9: 268.9, ICD10: E55.9 - continue supplement - CONSULT TO NUTRITION THERAPY 5. Surveillance for control, oral contraceptives - ICD9: V25.41, ICD10: Z30.41 - NORGESTIMATE 0.25 MG-ETHINYL ESTRADIOL 35 MCG TABLET 6. Class 2 obesity without serious comorbidity with body mass index (BMI) of 39.0 to 39.9 in adult,unspecified obesity type - ICD9: 278.00, V85.39, ICD10: E66.9, Z68.39 Weight increasing -- Based on the severity and resistance of the obesity/overweight with co- morbidities, I believe a combination of behavioral and pharmacological intervention is the best and most appropriate half-way therapeutic option. - Begin bupropion prescribed by PCP for depression and anxiety which will also help reduce cravings - CONSULT TO NUTRITION THERAPY Whole food balanced protein low-carb nutrition -- We discussed several strategies to track food intake and increase mindfulness around eating while will decrease calorie intake. She was counseled on the following: Eating primarily whole foods. Limit carbs, especially processed carbs. Do not drink your calories 30 grams of protein for breakfast decreases your hunger during the day by up to 40 % Premier Protein or generic 30 gm protein 1 gm sugar Walk for 15 minutes immediately a meal. -- Encouraged the patient to improve her physical activity. Although cardiovascular exercise is most beneficial for weight loss initially, we discussed healthy muscle from a combination of resistancetraining and cardiovascular exercise is the best half-way plan. An overall goal of 150-200 minutesper week of exercise has been effective in weight loss and maintenance. -- Reviewed that monitoring weight daily and food intake can have a positive impact on overall weight loss and maintenance of weight loss. Activity tracking can be used to stay on target for exercisehowever should not be used to reward oneself She understands that there can be limitations of pharmacotherapy due to contraindications, side effects and cost. Patient was told to contact her insurance company to see what AOMs and supervised behavioral medical appointments are currently covered. Patient understands she will have more success when following a healthy lifestyle. We reviewed continued use of online tracking of daily weights, food journal and if desired physical activity. We reviewed that during management she is to report any concerning side effects of any pharmacotherapy she is placed on. She understands that she will need routine follow up in the office. Prior to any virtual visits in the future she will need to check her Blood pressure, weight, and pulse. -- follow-up visit in 4 weeks for management of above interventions Adriana Clark APRN.CNP Advanced Education from the [employer] I spent a total of 75 minutes on the date of the service which included preparing to see the patient, [id number] patient care, completing clinical documentation, obtaining and/or reviewing separately obtained history, performing a medically appropriate examination, counseling and educating the pat ient/family/caregiver, and ordering medications, tests, or procedures. documented in this encounterCenterville10-12-2023 Instructions* Patient Instructions* Adriana Clark APRN.CNP - 11/16/2022 1:02 PM EDT Weight Management: You have taken the initiative to become a healthier version of yourself and to decrease the risks that come with the diagnosis of obesity or being overweight. We are happy to help you along this journey but know this is a lifetime commitment to yourself. Losing just 3-10 % of your body weight can decrease your risks of many other serious diseases like diabetes, heart disease, osteoarthritis, hypertension, cancer and so many others. During this time you will have triumphs, setbacks and plateaus-your body will fight against you but we are here to give you the tools and the resources to continue to reach your goals. We recommend during this time that you track your weight daily or at least five times per week as well as tracking your nutrition. You may track your activity but do not use hitting your fitness goals as a reward system as this can derail your success. We recommend weekly physical activity of 150-200 min/week-although physical exercise can help with maintaining weight loss it adds only a little benefit for salvage winder weight loss success. However, exercise can have many other benefits including improving mental health and cardiovascular health. Do not feel overwhelmed- we will discuss this moreat your visits. Our time will be limited with each visit but we will try to touch on factors that are important to you and to your overall goals. We will try to set a goal at the end of each visit and then decide onwhat we want to accomplish with your upcoming visits. On your After Visit Summary (AVS), we will provide you with information that may be useful during this journey so please remember to read the information given. Check your AVS a few days after your appointment because we may have added more information specifically for you. Remember that if you are placed on medications, they are tools that can help you succeed but you must put in the work. Your nutrition will be the main factor. There are medications that work well forsome and not for others- so it may take time to find the right combination for your body's needs. Please remember that factors such as other health co-morbidities one might have, as well as insurance coverage, will play a factor in determining which medications you can take. Most of the newer medications that are all the craze ,injectables, may not be covered or will only be covered if you fail months of oral medications- so please be patient with the process. It would be beneficial for you to determine what your insurance covers as far as Anti-Obesity Medications (AOMs), Nutritional Counseling, behavioral intervention and weight loss surgery. Please call your health insurance prior to your first appointment and write down coverage for each of those therapies. Most importantly, remember that ultimately our goal is to help you get to a healthier weight which will decrease your overall health risks. We will work together as a team and try to reach your personalized goals as well. We appreciate that you have entrusted us with your health and know that we are committed to this process with you. Obesity Obesity is a disease that affects nearly one-third of the adult [place] population (approximately 60 million). The number of overweight and obese Americans has continued to increase since 1959, a trend that is not slowing down. Today, 64.5 percent of adult Americans (about 127 million) are categorized as being overweight or obese. Each year, obesity causes at least 300,000 excess deaths in the [place] and healthcare costs of [place] adults with obesity amount to approximately $100 billion. (AOA) Obesity is a complex, multi-factorial chronic disease involving: Environmental (social and cultural) The tendency toward obesity is a result of our environment: lack of physical activity along with high-calorie, low-cost foods. Home, work, school, and even the community can inhibit a healthy lifestyle. Genetic (Hereditary plays a large role in determining how susceptible people are to overweight and obesity). Genes also influence how the body calderon calories for energy and stores fat. Physiologic, metabolic, behavioral (eating too many calories while not getting enough exercise) andpsychological components. It is the second leading cause of preventable in the [place] Behavioral changes brought on by economic development, modernization and urbanization have been linked to therise in global obesity. Calculating BMI Body Mass Index (BMI) is a measurement tool used to determine excess body weight. Overweight is defined as a BMI of 25 or more, obesity is 30 or more, and severe obesity is 40 or more. You can visit www.nhlbi.nih.gov to estimate your BMI. Obesity Related Health Conditions The morbidity and mortality risk from being overweight is proportional to its degree. Individuals with morbid obesity, therefore, have the highest risk for developing numerous illnesses that often reduce mobility and quality of life due to their excess weight. In particular, type 2 diabetes, gallbladder disease and osteoarthritis have been found to increase concurrently with higher BMI. Prematuredeath, a 20-year shorter life span, has also been found in individuals with morbid obesity. All of the systems that make the body function are affected by morbid obesity. Type 2 diabetes Gallbladder disease and gallstones Liver disease Osteoarthritis, a disease in which the joints deteriorate. This is possibly the result of excess weight on the joints. Gout, another disease affecting the joints Pulmonary (breathing) problems, including sleep apnea in which a person can stop breathing for a short time during sleep Reproductive problems in women, including menstrual irregularities and infertility Gastroesophageal reflux/heartburn Hypertension Heart Disease Depression Psychological disorders/social impairments Urinary Stress Incontinence Obesity is also linked to higher rates of certain types of cancer. Obese men are more likely than non-obese men to from cancer of the colon, rectum, or prostate. Obese women are more likely than non-obese women to from cancer of the gallbladder, breast, uterus, cervix, or ovaries [email or web address] [email or web address] Sincerely, Marisabel Zavaleta MD, FACOG & Adriana Clark CNP Nutrition - Eat primarily whole foods. Limit carbs, especially processed carbs. - Do not drink your calories - 30 grams of protein for breakfast decreases your hunger during the day by up to 40 % Premier Protein or generic 30 gm protein 1 gm sugar - Walk for 15 minutes immediately a meal. Start bupropion. documented in this encounterCenterville09-22-2023 History of Present illness Narrative* Shefali Carvajal APRN.DATABASE TECHNICIAN - 10/27/2022 12:14 PM EDT AMBULATORY TELEPHONE VISIT Sasha Rachel has consented to this telephone encounter. Persons Present: patient Chief Complaint/Reason: recheck SUBJECTIVE: Hepatitis B Vaccine(1 of 3 - 3-dose series) Never done Influenza Vaccine(1) due on 10/06/2022 Pap Testing due on 11/23/2022 HPV Testing due on 11/23/2022 HPI Sasha Rachel is a 37 year old female. PMH significant for ACTIVE PROBLEM LIST Fibromyalgia Anxiety and Depression Anxiety Numbness and Tingling of Lower Extremity Class 2 Obesity With Body Mass Index (Bmi) of 38.0 to 38.9 in Adult Seen by Cassi Riley CNP August 02, 2022 for anxiety. Ordered hydroxyzine and Lamictal. Labs completed HSAT ordered. Vitamin D and iron levels were noted to be low. She noted stress at work and home and trying to find a balance. Was sleeping better. Some feeling tired with new medications. She reported changing counselor and working on stress management. No voiced SI/HI. Has seen in Adriana Clark NURSING INSTRUCTOR provider. Last visit August 18, 2022. Discussed IUD. Discussed weight gain, noted with Zoloft and lamotrigine. Seen in [facility] care September 23, 2022. Reported sore throat chills fever body aches x1 day, fatigue x1 week. Treated with Toradol for headache in office. Strep and COVID were negative. Notes difficulty with weight loss and adhering to exercise. No current routine exercise. Does try to eat a healthy diet.Notes she is stress eating. Notes child with diagnosis of autism requiring lots of support Today reports sore throat is persisting. Fatigue is persisting. She reports taking vitamin D. Stopped taking hydroxyzine during the day as it was making her drowsy. Notes anxiety and depression. She stopped taking lamotrigine as it made her feel angry. Continued on Zoloft. Continues seeing counselor currently. No voiced SI HI. Today notes feeling improved on sertraline. Would like to continue with dose unchanged. Reports intermittent use of hydroxyzine. Notes counselor advised she may want to consider bupropion. Counselor asked her to note triggers and to address those as able. She has been exercising riding stationary bike and eating a healthy diet, feeling better. Review of Systems Psychiatric/Behavioral: Positive for dysphoric mood. The patient is nervous/anxious. Objective LMP 08/04/2022 (Approximate) Physical Exam Constitutional: Appearance: Normal appearance. Eyes: Conjunctiva/sclera: Conjunctivae normal. Pulmonary: Effort: Pulmonary effort is normal. Neurological: General: No focal deficit present. Mental Status: She is alert and oriented to person, place, and time. ALLERGIES Allergen Reactions Cats Other: See Comments Grass Pollen Other: See Comments Mold Other: See Comments Seasonal Allergies Other: See Comments Medications miSOPROStol (CYTOTEC) 200 mcg tablet Insert 2 tablets vaginally night prior to IUD and 2 tablets morning of procedure. Each dose should be in vagina for 6-8 hours. cholecalciferol (VITAMIN D3) 5,000 unit tab Take 1 tablet by mouth once daily. Magnesium 250 mg tab Take 2 tablets by mouth once daily. for anxiety / depression sertraline (ZOLOFT) 100 mg tablet Take 1 tablet by mouth once daily. hydrOXYzine HCl (ATARAX) 10 mg tablet Take 1-2 tablets by mouth three times daily as needed for anxiety. norgestimate 0.25 mg-ethinyl estradiol 35 mcg (SPRINTEC) 0.25-35 mg-mcg per tablet Take 1 tablet bymouth once daily. ibuprofen (MOTRIN) 200 mg tablet Take 4 tablets by mouth every 8 hours as needed for pain (headache). Take with food. albuterol HFA (PROAIR HFA) 90 mcg/actuation inhaler Inhale 2 Puffs as instructed every 6 hours as needed. PAST MEDICAL HISTORY Diagnosis Date Abnormal Pap smear of cervix 2004 Allergic rhinitis due to other allergen Depressive disorder, not elsewhere classified Fibromyalgia Food poisoning 2014 Irritable bowel syndrome Myalgia and myositis, unspecified Other chronic sinusitis Social History Tobacco Use Smoking status: Never Smokeless tobacco: Never Vaping Use Vaping Use: Never used Substance Use Topics Alcohol use: Yes Comment: Occasionally, but not while Drug use: No Component Latest Ref Rng & Units 09/17/2021 07/12/2022 09/22/2022 09/23/2022 WBC 3.70 - 11.00 k/uL 7.12 RBC 3.90 - 5.20 m/uL 4.73 Hemoglobin 11.5 - 15.5 g/dL 14.2 Hematocrit 36.0 - 46.0 % 46.1 (H) MCV 80.0 - 100.0 fL 97.5 MCH 26.0 - 34.0 pg 30.0 MCHC 30.5 - 36.0 g/dL 30.8 RDW-CV 11.5 - 15.0 % 13.6 Platelet Count 150 - 400 k/uL 236 MPV 9.0 - 12.7 fL 11.0 Neut% % 63.0 Abs Neut (ANC) 1.45 - 7.50 k/uL 4.48 Lymph% % 25.8 Abs Lymph 1.00 - 4.00 k/uL 1.84 [place]% % 8.1 Abs [place] <0.87 k/uL 0.58 Eosin% % 2.5 Abs Eosin <0.46 k/uL 0.18 Baso% % 0.3 Abs Baso <0.11 k/uL <0.03 Immature Gran % % 0.3 IMMATURE GRANS (ABS) <0.10 k/uL <0.03 NRBC /100 WBC 0.0 Absolute nRBC <0.01 k/uL <0.01 DTYPE Auto Protein, Total 6.3 - 8.0 g/dL 7.5 6.9 Albumin 3.9 - 4.9 g/dL 4.1 4.4 Calcium 8.5 - 10.2 mg/dL 9.0 9.1 Bilirubin, Total 0.2 - 1.3 mg/dL 0.3 0.2 Alkaline Phosphatase 34 - 123 U/L 54 58 AST 13 - 35 U/L 24 16 ALT 7 - 38 U/L 11 17 Glucose 74 - 99 mg/dL 91 93 BUN 7 - 21 mg/dL 18 16 Creatinine 0.58 - 0.96 mg/dL 0.70 0.72 Sodium 136 - 144 mmol/L 137 139 Potassium 3.7 - 5.1 mmol/L 4.6 4.9 Chloride 97 - 105 mmol/L 107 (H) 104 CO2 22 - 30 mmol/L 17 (L) 22 Anion Gap 9 - 18 mmol/L 13 13 eGFR >=60 mL/min/1.73m 115 111 Cholesterol, Total <200 mg/dL 214 (H) 189 Triglyceride <150 mg/dL 152 (H) 145 HDL Cholesterol >39 mg/dL 57 44 Non HDL Cholesterol <130 mg/dL 157 (H) 145 (H) Fasting Time hrs 12 12 VLDL Cholesterol <30 mg/dL 30 (H) 29 TC:HDL Ratio <5.10 3.75 4.30 LDL Cholesterol <100 mg/dL 127 (H) 116 (H) LDL:HDL Ratio <2.54 2.23 2.64 (H) Iron 41 - 186 ug/dL 92 TIBC 232 - 386 ug/dL 409 (H) Transferrin Saturation 15.0 - 57.0 % 22.5 Hemoglobin A1C 4.3 - 5.6 % 4.8 Estimated Average Glucose mg/dL 91 Strep A (POCT) Negative Negative Procedural Control Valid TSH 0.270 - 4.200 mIU/L 1.630 Vitamin D 25 Hydroxy 31.0 - 80.0 ng/mL 22.2 (L) Vitamin B12 232 - 1,245 pg/mL 413 Free T3 2.3 - 4.1 pg/mL 3.1 Free T4 0.9 - 1.7 ng/dL 1.1 ASSESSMENT/PLAN: 1. Anxiety and depression F41.9, F32.A Stay off of lamotrigine If hydroxyzine is making you drowsy take it only at night or if you do not need to be alert. Continue with Zoloft dose unchanged for now. Start taking bupropion XL, 150mg QD Continue with: For your weight start walking your or biking daily, start with a few minutes and slowly increase to30 to 60 minutes daily. Watch portion sizes of your food Eat a plant-based diet such as Mediterranean diet Video visit in 4 weeks - f/u anxiety, depression Shefali Carvajal APRN.CNS Data Reviewed: EPIC chart Total Time Spent: 20 minutes Shefali Carvajal APRN.CNS Medical Decision Making: Medical Decision Making Level: 1 - N/A documented in this encounterCenterville08-21-2023 Instructions* Patient Instructions* Shefali Carvajal APRN.CNS - 09/25/2022 1:40 PM EDT For your sore throat start taking amoxicillin Let us know if not feeling improved For anxiety and depression: Stay off of lamotrigine If hydroxyzine is making you drowsy take it only at night or if you do not need to be alert. Continue with Zoloft dose unchanged for now, we may decrease the dose at your next visit Start taking bupropion For your weight start walking your or biking daily, start with a few minutes and slowly increase to30 to 60 minutes daily. Watch portion sizes of your food Eat a plant-based diet such as Mediterranean diet documented in this encounterCenterville08-21-2023 History of Present illness Narrative* Shefali Carvajal APRN.CNS - 09/25/2022 12:39 PM EDT SUBJECTIVE: HEPATITIS B(1 of 3 - 3-dose series) Never done PAP TESTING due on 11/23/2022 HPV TESTING due on 11/23/2022 HPI Sasha Rachel is a 37 year old female. PMH significant for ACTIVE PROBLEM LIST Fibromyalgia Depressive Disorder, not Elsewhere Classified Anxiety Numbness and Tingling of Lower Extremity Class 2 Obesity With Body Mass Index (Bmi) of 38.0 to 38.9 in Adult Seen by Cassi Riley CNP August 02, 2022 for anxiety. Ordered hydroxyzine and Lamictal. Labs completed HSAT ordered. Vitamin D and iron levels were noted to be low. She noted stress at work and home and trying to find a balance. Was sleeping better. Some feeling tired with new medications. She reported changing counselor and working on stress management. No voiced SI/HI. Has seen in Adriana Clark NURSING INSTRUCTOR provider. Last visit August 18, 2022. Discussed IUD. Discussed weight gain, noted with Zoloft and lamotrigine. Seen in [facility] care September 23, 2022. Reported sore throat chills fever body aches x1 day, fatigue x1 week. Treated with Toradol for headache in office. Strep and COVID were negative. Notes difficulty with weight loss and adhering to exercise. No current routine exercise. Does try to eat a healthy diet.Notes she is stress eating. Notes child with diagnosis of autism requiring lots of support Today reports sore throat is persisting. Fatigue is persisting. She reports taking vitamin D. Stopped taking hydroxyzine during the day as it was making her drowsy. Notes anxiety and depression. She stopped taking lamotrigine as it made her feel angry. Continued on Zoloft. Continues seeing counselor currently. No voiced SI HI. Review of Systems Constitutional: Positive for fatigue. HENT: Positive for ear pain and sore throat. Psychiatric/Behavioral: Positive for dysphoric mood. The patient is nervous/anxious. Objective BP 124/82 Pulse 66 Temp 36.7 C (98 F) Resp 16 Ht 172.7 cm (5' 8) Wt 119.3 kg (263 lb) LMP 08/04/2022 (Approximate) SpO2 97% BMI 39.99 kg/m Physical Exam Vitals and nursing note reviewed. Constitutional: Appearance: Normal appearance. HENT: Head: Normocephalic and atraumatic. Right Ear: Ear canal normal. Tympanic membrane is erythematous. Left Ear: Tympanic membrane and ear canal normal. Eyes: Conjunctiva/sclera: Conjunctivae normal. Neck: Thyroid: No thyromegaly or thyroid tenderness. Vascular: Normal carotid pulses. No JVD. Cardiovascular: Rate and Rhythm: Normal rate and regular rhythm. Pulses: Carotid pulses are 2+ on the right side and 2+ on the left side. Radial pulses are 2+ on the right side and 2+ on the left side. Heart sounds: Normal heart sounds. Pulmonary: Effort: Pulmonary effort is normal. Breath sounds: Normal breath sounds. Abdominal: General: Bowel sounds are normal. Palpations: Abdomen is soft. Musculoskeletal: Right lower leg: No edema. Left lower leg: No edema. Skin: General: Skin is warm and dry. Neurological: General: No focal deficit present. Mental Status: She is alert and oriented to person, place, and time. ALLERGIES Allergen Reactions Cats Other: See Comments Grass Pollen Other: See Comments Mold Other: See Comments Seasonal Allergies Other: See Comments Medications sertraline (ZOLOFT) 100 mg tablet Take 1 tablet by mouth once daily. hydrOXYzine HCl (ATARAX) 10 mg tablet Take 1-2 tablets by mouth three times daily as needed for anxiety. norgestimate 0.25 mg-ethinyl estradiol 35 mcg (SPRINTEC) 0.25-35 mg-mcg per tablet Take 1 tablet bymouth once daily. ibuprofen (MOTRIN) 200 mg tablet Take 4 tablets by mouth every 8 hours as needed for pain (headache). Take with food. albuterol HFA (PROAIR HFA) 90 mcg/actuation inhaler Inhale 2 Puffs as instructed every 6 hours as needed. buPROPion XL (WELLBUTRIN XL) 150 mg 24 hr tablet Take 1 tablet by mouth once daily. for mood cholecalciferol (VITAMIN D3) 5,000 unit tab Take 1 tablet by mouth once daily. Magnesium 250 mg tab Take 2 tablets by mouth once daily. for anxiety / depression miSOPROStol (CYTOTEC) 200 mcg tablet Insert 2 tablets vaginally night prior to IUD and 2 tablets morning of procedure. Each dose should be in vagina for 6-8 hours. (Patient not taking: Reported on 09/23/2022) PAST MEDICAL HISTORY Diagnosis Date Abnormal Pap smear of cervix 2004 Allergic rhinitis due to other allergen Depressive disorder, not elsewhere classified Fibromyalgia Food poisoning 2014 Irritable bowel syndrome Myalgia and myositis, unspecified Other chronic sinusitis Social History Tobacco Use Smoking status: Never Smokeless tobacco: Never Vaping Use Vaping Use: Never used Substance Use Topics Alcohol use: Yes Comment: Occasionally, but not while Drug use: No Component Latest Ref Rng & Units 09/17/2021 07/12/2022 09/22/2022 09/23/2022 WBC 3.70 - 11.00 k/uL 7.12 RBC 3.90 - 5.20 m/uL 4.73 Hemoglobin 11.5 - 15.5 g/dL 14.2 Hematocrit 36.0 - 46.0 % 46.1 (H) MCV 80.0 - 100.0 fL 97.5 MCH 26.0 - 34.0 pg 30.0 MCHC 30.5 - 36.0 g/dL 30.8 RDW-CV 11.5 - 15.0 % 13.6 Platelet Count 150 - 400 k/uL 236 MPV 9.0 - 12.7 fL 11.0 Neut% % 63.0 Abs Neut (ANC) 1.45 - 7.50 k/uL 4.48 Lymph% % 25.8 Abs Lymph 1.00 - 4.00 k/uL 1.84 Searcy% % 8.1 Abs [place] <0.87 k/uL 0.58 Eosin% % 2.5 Abs Eosin <0.46 k/uL 0.18 Baso% % 0.3 Abs Baso <0.11 k/uL <0.03 Immature Gran % % 0.3 IMMATURE GRANS (ABS) <0.10 k/uL <0.03 NRBC /100 WBC 0.0 Absolute nRBC <0.01 k/uL <0.01 DTYPE Auto Protein, Total 6.3 - 8.0 g/dL 7.5 6.9 Albumin 3.9 - 4.9 g/dL 4.1 4.4 Calcium 8.5 - 10.2 mg/dL 9.0 9.1 Bilirubin, Total 0.2 - 1.3 mg/dL 0.3 0.2 Alkaline Phosphatase 34 - 123 U/L 54 58 AST 13 - 35 U/L 24 16 ALT 7 - 38 U/L 11 17 Glucose 74 - 99 mg/dL 91 93 BUN 7 - 21 mg/dL 18 16 Creatinine 0.58 - 0.96 mg/dL 0.70 0.72 Sodium 136 - 144 mmol/L 137 139 Potassium 3.7 - 5.1 mmol/L 4.6 4.9 Chloride 97 - 105 mmol/L 107 (H) 104 CO2 22 - 30 mmol/L 17 (L) 22 Anion Gap 9 - 18 mmol/L 13 13 eGFR >=60 mL/min/1.73m 115 111 Cholesterol, Total <200 mg/dL 214 (H) 189 Triglyceride <150 mg/dL 152 (H) 145 HDL Cholesterol >39 mg/dL 57 44 Non HDL Cholesterol <130 mg/dL 157 (H) 145 (H) Fasting Time hrs 12 12 VLDL Cholesterol <30 mg/dL 30 (H) 29 TC:HDL Ratio <5.10 3.75 4.30 LDL Cholesterol <100 mg/dL 127 (H) 116 (H) LDL:HDL Ratio <2.54 2.23 2.64 (H) Iron 41 - 186 ug/dL 92 TIBC 232 - 386 ug/dL 409 (H) Transferrin Saturation 15.0 - 57.0 % 22.5 Hemoglobin A1C 4.3 - 5.6 % 4.8 Estimated Average Glucose mg/dL 91 Strep A (POCT) Negative Negative Procedural Control Valid TSH 0.270 - 4.200 mIU/L 1.630 Vitamin D 25 Hydroxy 31.0 - 80.0 ng/mL 22.2 (L) Vitamin B12 232 - 1,245 pg/mL 413 Free T3 2.3 - 4.1 pg/mL 3.1 Free T4 0.9 - 1.7 ng/dL 1.1 ASSESSMENT/PLAN: 1. Sore throat - ICD9: 462, ICD10: J02.9 (primary diagnosis) Supportive care. - AMOXICILLIN 875 MG TABLET 2. Anxiety and depression - ICD9: 300.00, 311, ICD10: F41.9, F32.A 3. Class 2 obesity with body mass index (BMI) of 38.0 to 38.9 in adult, unspecified obesity type, unspecified whether serious comorbidity present - ICD9: 278.00, V85.38, ICD10: E66.9, Z68.38 4. Encounter for immunization - ICD9: V03.89, ICD10: Z23 Will ikely get at [facility] flu shot and COVID booster in the fall if she so desires, reports prior difficulties with COVID booster - HEP B VACCINE, 3-DOSE, AGE 20+ YR (ENGERIX-B, RECOMBIVAX HB) - HEP B VACCINE, 3-DOSE, AGE 20+ YR (ENGERIX-B, RECOMBIVAX HB) - HEP B VACCINE, 3-DOSE, AGE 20+ YR (ENGERIX-B, RECOMBIVAX HB) Advised: For your sore throat start taking amoxicillin Let us know if not feeling improved For anxiety and depression: Stay off of lamotrigine If hydroxyzine is making you drowsy take it only at night or if you do not need to be alert. Continue with Zoloft dose unchanged for now, we may decrease the dose at your next visit Start taking bupropion For your weight start walking your or biking daily, start with a few minutes and slowly increase to30 to 60 minutes daily. Watch portion sizes of your food Eat a plant-based diet such as Mediterranean diet in person or video 2-4 weeks - f/u anxiety, depression Shefali Carvajal APRN.CNS Well check paperwork completed and provided back to her. Shefali Carvajal APRN.CNS Medical Decision Making: Problems: Low: Acute, uncomplicated illness or injury Moderate: 2+ stable chronic illnesses Risk: Moderate: Drug management Medical Decision Making Level: 4 - Moderate documented in this encounterCenterville08-19-2023 History of Present illness Narrative* Bridget Reyes APRN.AIR DEFENCE OFFICER - 09/23/2022 2:08 PM EDT CC: Patient presents with: Sore Throat: chills, fever, bodyaches x last night, fatigue x 1 week HPI: Sasha Rachel is a 37 year old female who presents to the office with complaint of respiratory symptoms and fever for a week. Symptoms are worsening Associated symptoms includes sore throat and body aches. Denies nausea, vomiting , and diarrhea. Treatments tried include Ibuprofen and Nyquil with minor relief of symptoms. Sick contacts: unknown. History of asthma, frequent episodes of bronchitis, chronic bronchitis, bronchiectasis or COPD: No Smoker: No Seasonal/environmental allergies: No The ROS is otherwise negative. The patient's pmh, medications, allergies, and past visits are reviewed. PHYSICAL EXAM: BP 124/80 Pulse 92 Temp 37.2 C (99 F) Resp 16 Wt 119.3 kg (263 lb) LMP 08/04/2022 (Approximate) SpO2 97% BMI 39.41 kg/m General appearance: alert, cooperative, pleasant, in no acute distress Head: Normocephalic Eyes: EOM's intact, conjunctiva pink and moist, no icterus, sclera white, non-injected Ears: Right ear: External ear/canal- Normal, TM - clear with good landmarks. Left ear: External ear/canal- Normal, TM - clear with good landmarks Oropharynx:moderate erythema, without exudates present. 2+ bilateral Neck:supple and no adenopathy Heart: Negative. RRR without obvious murmur, gallop, or rubs. No ectopy. Lungs: clear to auscultation, without rales or wheeze, good air exchange PAST MEDICAL HISTORY Diagnosis Date Abnormal Pap smear of cervix 2004 Allergic rhinitis due to other allergen Depressive disorder, not elsewhere classified Fibromyalgia Food poisoning 2014 Irritable bowel syndrome Myalgia and myositis, unspecified Other chronic sinusitis PAST SURGICAL HISTORY Procedure Laterality Date HYSTEROSCOPY BX ENDOMETRIUM&/POLYPC W/WO D&C 09/18/2019 hysteroscopy D&C for AUP TONSILLECTOMY & ADENOIDECTOMY AGE 12/> 1996 ALLERGIES Cats, Grass Pollen, Mold, and Seasonal Allergies MEDICATIONS sertraline (ZOLOFT) 100 mg tablet Take 1 tablet by mouth once daily. hydrOXYzine HCl (ATARAX) 10 mg tablet Take 1-2 tablets by mouth three times daily as needed for anxiety. norgestimate 0.25 mg-ethinyl estradiol 35 mcg (SPRINTEC) 0.25-35 mg-mcg per tablet Take 1 tablet bymouth once daily. ibuprofen (MOTRIN) 200 mg tablet Take 4 tablets by mouth every 8 hours as needed for pain (headache). Take with food. albuterol HFA (PROAIR HFA) 90 mcg/actuation inhaler Inhale 2 Puffs as instructed every 6 hours as needed. miSOPROStol (CYTOTEC) 200 mcg tablet Insert 2 tablets vaginally night prior to IUD and 2 tablets morning of procedure. Each dose should be in vagina for 6-8 hours. (Patient not taking: Reported on 09/23/2022) lamoTRIgine (LAMICTAL) 100 mg tablet Take 1 tablet by mouth once daily. (Patient not taking: Reported on 09/23/2022) ipratropium bromide (ATROVENT) 42 mcg (0.06 %) nasal spray Use 1 [place] in each nostril three times daily for 7 days. (Patient not taking: Reported on 09/23/2022) FAMILY HISTORY Problem Relation Age of Onset Breast Cancer Mother other (hypercholesterolemia) Mother diet controlled Parkinson s Disease Father Prostate Cancer Father No Known Problems Sister Heart Maternal Grandmother Psychiatry Maternal Grandfather Hypertension Paternal Grandmother Heart Paternal Grandmother Heart Paternal Grandfather Autism Son Social History Tobacco Use Smoking status: Never Smokeless tobacco: Never Vaping Use Vaping Use: Never used Substance Use Topics Alcohol use: Yes Comment: Occasionally, but not while Drug use: No ASSESSMENT/PLAN: 1. Sore throat - ICD9: 462, ICD10: J02.9 (primary diagnosis) - STREP A MOLECULAR (POC) - neg 2. URI, acute - ICD9: 465.9, ICD10: J06.9 - COVID & INFLUENZA A/B & RSV NAAT, ROUTINE Toradol given for headache. Prescription instructions reviewed with patient as applicable. Potential red flag symptoms discussed with the patient. Reviewed appropriate action plan to take if red flag symptoms occur. Patient agreeable to treatment plan. Bridget Reyes APRN.CNP documented in this encounterCenterville08-15-2023 Miscellaneous Notes* Telephone Encounter - Shefali Carvajal APRN.CNS - 09/19/2022 3:33 PM EDT OK * Telephone Encounter - Phillip Adame RN - 09/19/2022 9:56 AM EDT asking RASHEL Ruiz, to place lab order for lipid panel in lab, so patient can have it done prior to upcoming appt. Pended. documented in this encounterCenterville07-14-2023 Instructions* Patient Instructions* Adriana Clark APRN.CNP - 08/18/2022 1:51 PM EDT Discuss with PCP regarding bupropion. This may or may not be appropriate for you with history of anxiety. Schedule when on menses Ibuprofen 600-800 prior to appointment Vaginal cytotec Eat before appointment. documented in this encounterCenterville07-14-2023 History of Present illness Narrative* Adriana Clark APRN.CNP - 08/18/2022 1:25 PM EDT Sasha Rachel is a 37 year old female who presents for problem visit discuss LARC. HPI: Interested in IUD. Currently taking LAISHA Sprintec but life is hectic and stressful with her 4-year-old son with autism and she does not want to have to remember taking a daily pill. Also request reviewed fill of sertraline for depression. She has also been started on lamotrigine and hydroxyzineper PCP. Concerned about weight gain since starting the lamotrigine. OB History T1 L1 SAB0 IAB0 Ectopic0 Multiple0 Live Births1 S[place]age Stringer History LMP: 08/04/2022 (Approximate), Having periods Age at Menarche: Age at First : Age at Menopause: Sausage Stringer History Comments: Sexual Activity: Yes; Male Contraception: Pill PAST MEDICAL HISTORY Diagnosis Date Abnormal Pap smear of cervix 2004 Allergic rhinitis due to other allergen Depressive disorder, not elsewhere classified Fibromyalgia Food poisoning 2014 Irritable bowel syndrome Myalgia and myositis, unspecified Other chronic sinusitis PAST SURGICAL HISTORY Procedure Laterality Date HYSTEROSCOPY BX ENDOMETRIUM&/POLYPC W/WO D&C 09/18/2019 hysteroscopy D&C for AUP TONSILLECTOMY & ADENOIDECTOMY AGE 12/> 1996 FAMILY HISTORY Problem Relation Age of Onset Breast Cancer Mother other (hypercholesterolemia) Mother diet controlled Parkinson s Disease Father Prostate Cancer Father No Known Problems Sister Heart Maternal Grandmother Psychiatry Maternal Grandfather Hypertension Paternal Grandmother Heart Paternal Grandmother Heart Paternal Grandfather Autism Son Social History Tobacco Use Smoking status: Never Smokeless tobacco: Never Vaping Use Vaping Use: Never used Substance Use Topics Alcohol use: Yes Comment: Occasionally, but not while Drug use: No Current Outpatient Medications Medication Sig lamoTRIgine (LAMICTAL) 100 mg tablet Take 1 tablet by mouth once daily. hydrOXYzine HCl (ATARAX) 10 mg tablet Take 1-2 tablets by mouth three times daily as needed for anxiety. ipratropium bromide (ATROVENT) 42 mcg (0.06 %) nasal spray Use 1 [place] in each nostril three times daily for 7 days. norgestimate 0.25 mg-ethinyl estradiol 35 mcg (SPRINTEC) 0.25-35 mg-mcg per tablet Take 1 tablet bymouth once daily. sertraline (ZOLOFT) 100 mg tablet Take 1 tablet by mouth once daily. ibuprofen (MOTRIN) 200 mg tablet Take 4 tablets by mouth every 8 hours as needed for pain (headache). Take with food. albuterol HFA (PROAIR HFA) 90 mcg/actuation inhaler Inhale 2 Puffs as instructed every 6 hours as needed. No current facility-administered medications for this visit. Allergies As of Date: 08/18/2022 Allergen Noted Reaction CATS 08/03/2018 Other: See Comments GRASS POLLEN 09/18/2019 Other: See Comments MOLD 09/18/2019 Other: See Comments SEASONAL ALLERGIES 07/02/2020 Other: See Comments Fully Assessed 08/02/2022 REVIEW OF SYSTEMS Allergies and current medication updated:Yes EXAM: BP 116/80 Wt 263 lb (119.3kg) LMP 08/04/2022 GENERAL: pleasant, female in no apparent distress CHEST: Normal inspiratory effort NEURO: alert and oriented x3,exam grossly non-focal ASSESSMENT/PLAN: 1. General counseling and advice for contraceptive management - ICD9: V25.09, ICD10: Z30.09 (primary diagnosis) -Discussed ParaGard, Kyleena and Mirena IUDs with R/B/A. She would like to proceed with Mirena IUD insertion. - INSERT INTRAUTERINE DEVICE - MISOPROSTOL 200 MCG TABLET Education ; schedule when on menses Ibuprofen 600-800 prior to appointment Vaginal cytotec Eat before appointment. 2. Depression, unspecified depression type - ICD9: 311, ICD10: F32.A -90-day refill of sertraline. Discussed with patient that it would be best that 1 provider manage medications for depression/anxiety and that she should discuss this at her follow-up with her PCP. - SERTRALINE 100 MG TABLET 3. Class 2 obesity with body mass index (BMI) of 39.0 to 39.9 in adult, unspecified obesity type, unspecified whether serious comorbidity present - ICD9: 278.00, V85.39, ICD10: E66.9, Z68.39 -Weight increasing. Has gained 11 lbs in past 5 weeks since starting lamotrigine. Has also gained significant weight on sertraline over the past several years. Will reach out to PCP for possible other options. -Discussed weight management appointment when she is ready. Follow-up at IUD insertion. Adriana Clark APRN.CNP Medical Decision Making: Problems: Low: Stable chronic illness Moderate: 1+ chronic illnesses with change Risk: Moderate: Drug management and Moderate risk from testing/treatment Medical Decision Making Level: 4 - Moderate documented in this encounterCenterville07-11-2023 Miscellaneous Notes* Telephone Encounter - Siomara Nicole LPN - 08/15/2022 11:40 AM EDT PATIENT NOTIFIED OF SAME. * Telephone Encounter - Cassi Riley APRN.CNP - 08/15/2022 11:18 AM EDT Please let her know I would recommend she first decrease the dose to a half pill and see how she tolerates that and if still having issues then please let us know! Thanks! * Telephone Encounter - Thi Young RN - 08/14/2022 7:37 PM EDT Patient calling to say she took increased dose of Lamotrigene 100 mg last evening and felt angry, irritable, edgy and agitated today. She is wondering if it is the increased dose of medication causing these symptoms? Tonight she says she is either going to skip the medication or cut the pill in half. She is asking for provider recommendation. Thi Young RN documented in this encounterCenterville06-28-2023 History of Present illness Narrative* Cassi Riley APRN.CNP - 08/02/2022 11:37 AM EDT SUBJECTIVE Sasha Rachel is a 37 year old female here today for a check up on her medical problems. Chief Complaint Patient presents with: Recheck: medication for anxiety HPI Sasha Rachel is a 37 year old female established patient of Hung Rivero MD. She presents today for follow up on anxiety. At her last visit we discussed increased concerns of anxiety and more frequent panic attacks. She was started on Lamictal and hydroxyzine, already on Zoloft. She had labs, ordered a HSAT. Vitamin d was low, iron levels suggest low iron stores. She states today that she seems to be feeling a little improved, not having as frequent panic attacks. Still a lot of stress at work and home, trying to find balance. Sleeping better. No issues with the medications except for noticing feeling tired occasionally. She wants to continue to work on things, wants to also work on chris ght loss. She has changed her counselor, working on stress management. Her medications were reviewed today and her list is now up to date. Medications Current Outpatient Medications Medication Sig norgestimate 0.25 mg-ethinyl estradiol 35 mcg (SPRINTEC) 0.25-35 mg-mcg per tablet Take 1 tablet bymouth once daily. sertraline (ZOLOFT) 100 mg tablet Take 1 tablet by mouth once daily. ibuprofen (MOTRIN) 200 mg tablet Take 4 tablets by mouth every 8 hours as needed for pain (headache). Take with food. albuterol HFA (PROAIR HFA) 90 mcg/actuation inhaler Inhale 2 Puffs as instructed every 6 hours as needed. lamoTRIgine (LAMICTAL) 100 mg tablet Take 1 tablet by mouth once daily. hydrOXYzine HCl (ATARAX) 10 mg tablet Take 1-2 tablets by mouth three times daily as needed for anxiety. ipratropium bromide (ATROVENT) 42 mcg (0.06 %) nasal spray Use 1 [place] in each nostril three times daily for 7 days. No current facility-administered medications for this visit. ALLERGIES Allergen Reactions Cats Other: See Comments Grass Pollen Other: See Comments Mold Other: See Comments Seasonal Allergies Other: See Comments ACTIVE PROBLEM LIST Class 2 Obesity With Body Mass Index (Bmi) of 38.0 to 38.9 in Adult - 09/19/2021 Numbness and Tingling of Lower Extremity - 05/28/2018 Anxiety - 04/24/2018 Depressive Disorder, not Elsewhere Classified Fibromyalgia - 08/20/2007 Social History Tobacco Use Smoking status: Never Smokeless tobacco: Never Vaping Use Vaping Use: Never used Substance Use Topics Alcohol use: Yes Comment: Occasionally, but not while Drug use: No Review of Systems Respiratory: Negative. Cardiovascular: Negative. Psychiatric/Behavioral: Positive for dysphoric mood. Negative for self-injury, sleep disturbance and suicidal ideas. The patient is nervous/anxious. OBJECTIVE BP 110/88 Pulse 84 Wt 258 lb (117.0kg) SpO2 98% LMP 06/28/2022 Physical Exam Vitals and nursing note reviewed. Constitutional: General: She is awake. She is not in acute distress. Appearance: Normal appearance. She is well-developed and well-groomed. She is obese. She is not ill-appearing, toxic-appearing or diaphoretic. HENT: Head: Normocephalic. Right Ear: External ear normal. Left Ear: External ear normal. Nose: Nose normal. Eyes: General: Vision grossly intact. Conjunctiva/sclera: Conjunctivae normal. Pupils: Pupils are equal, round, and reactive to light. Neck: Vascular: No JVD. Trachea: Trachea normal. Pulmonary: Effort: Pulmonary effort is normal. No accessory muscle usage, prolonged expiration or respiratory distress. Musculoskeletal: Cervical back: Neck supple. Skin: General: Skin is warm and dry. Capillary Refill: Capillary refill takes less than 2 seconds. Neurological: General: No focal deficit present. Mental Status: She is alert and oriented to person, place, and time. Mental status is at baseline. Psychiatric: Attention and Perception: Attention and perception normal. Mood and Affect: Mood and affect normal. Speech: Speech normal. Behavior: Behavior normal. Behavior is cooperative. Thought Content: Thought content normal. Cognition and Memory: Cognition and memory normal. Judgment: Judgment normal. ASSESSMENT/PLAN: 1. Anxiety - ICD9: 300.00, ICD10: F41.9 (primary diagnosis) Some improvement but still with high anxiety and panic attacks. She does note sleeping better. Hydroxyzine PRN, can increase Lamictal dose. She is aware that this can make her OCPs less effective. - LAMOTRIGINE 100 MG TABLET 2. Anxiety attack - ICD9: 300.01, ICD10: F41.0 - HYDROXYZINE HCL 10 MG TABLET 3. Class 2 obesity with body mass index (BMI) of 38.0 to 38.9 in adult, unspecified obesity type, unspecified whether serious comorbidity present - ICD9: 278.00, V85.38, ICD10: E66.9, Z68.38 Desires to work on weight loss but feels overwhelmed. She would definitely be a good candidate to work with women's health weight management so we will have her schedule with them to discuss weight and weight loss. She is aware the Zoloft and Lamictal can make weight loss more challenging but at this point the benefits for treating her anxiety are needed. I spent a total of 35 minutes on the date of the service which included preparing to see the patient, [id number] patient care, completing clinical documentation, obtaining and/or reviewing separately obtained history, performing a medically appropriate examination, counseling and educating the pat ient/family/caregiver, ordering medications, tests, or procedures, communicating with other HCPs (not separately reported), independently interpreting results (not separately reported), communicatingresults to the patient/family/caregiver, and care coordination (not separately reported). Portions of this note have been entered by ancillary staff. I have reviewed and when necessary edited, so that they are an adequate record of my encounter with this patient Please note that parts of this document were created using voice recognition software and therefore may contain grammatical errors. Patient verbalizes understanding of instructions from today's visit and in agreement with treatmentplan. Questions answered. Agrees to call the office if questions, concerns of issues with acute symptoms not improving or if they worsen. See diagnoses and orders for additional plan(s). Allergies and medications were reviewed, list was updated, and refills given if needed. Past medical, surgical, social, and family history reviewed and updated as appropriate. Encouraged proper diet & exercise as well as compliance with taking medications. Age- appropriate health preventative measures were discussed. Return in about 6 weeks (around 09/13/2022) for follow up anxiety. PRIMO Yanez documented in this encounterCenterville06-07-2023 History of Present illness Narrative* Cassi Riley APRN.CNP - 07/12/2022 11:41 AM EDT SUBJECTIVE Sasha Rachel is a 37 year old female here today for a check up on her medical problems. Chief Complaint Patient presents with: Recheck: follow up of Express Care visit on line for panic attacks. Question if medication can be changed Sleep Problem: is interested in a sleep study HPI Sasha Rachel is a 37 year old female established patient of Hung Rivero MD. She presents today for EC follow up, seen via urgent care virtual visit on 07/10 for an anxiety attack. Prescribed hydroxyzine but has not picked this up yet. Currently taking Zoloft 100 mg daily. Experiencing increased stress. Has seen Karina Blue in the past for therapy. Triggered at son's appointment, he is autistic. Realized she is having more panic episodes. Really stressed. Always feels tired. Weight up since son was born. Knows she needs to eat better and exercise. Has tried a lot of medications to helpwith mood. Not sleeping great, wakes early in the morning. No witnessed apnea, she does snore. Wondering if she needs a sleep study. Her medications were reviewed today and her list is now up to date. Medications Current Outpatient Medications Medication Sig ipratropium bromide (ATROVENT) 42 mcg (0.06 %) nasal spray Use 1 [place] in each nostril three times daily for 7 days. norgestimate 0.25 mg-ethinyl estradiol 35 mcg (SPRINTEC) 0.25-35 mg-mcg per tablet Take 1 tablet bymouth once daily. sertraline (ZOLOFT) 100 mg tablet Take 1 tablet by mouth once daily. ibuprofen (MOTRIN) 200 mg tablet Take 4 tablets by mouth every 8 hours as needed for pain (headache). Take with food. albuterol HFA (PROAIR HFA) 90 mcg/actuation inhaler Inhale 2 Puffs as instructed every 6 hours as needed. lamoTRIgine (LAMICTAL) 25 mg tablet Take 1 tablet by mouth once daily. hydrOXYzine HCl (ATARAX) 10 mg tablet Take 1-2 tablets by mouth three times daily as needed for anxiety. No current facility-administered medications for this visit. ALLERGIES Allergen Reactions Cats Other: See Comments Grass Pollen Other: See Comments Mold Other: See Comments Seasonal Allergies Other: See Comments ACTIVE PROBLEM LIST Class 2 Obesity With Body Mass Index (Bmi) of 37.0 to 37.9 in Adult - 09/19/2021 Numbness and Tingling of Lower Extremity - 05/28/2018 Anxiety - 04/24/2018 Depressive Disorder, not Elsewhere Classified Fibromyalgia - 08/20/2007 Social History Tobacco Use Smoking status: Never Smokeless tobacco: Never Vaping Use Vaping Use: Never used Substance Use Topics Alcohol use: Yes Comment: Occasionally, but not while Drug use: No Review of Systems Constitutional: Positive for fatigue. Respiratory: Negative. Cardiovascular: Negative. Psychiatric/Behavioral: Positive for sleep disturbance. The patient is nervous/anxious. OBJECTIVE BP 122/80 Pulse 75 Wt 252 lb (114.3kg) SpO2 98% LMP 03/03/2022 Physical Exam Vitals and nursing note reviewed. Constitutional: General: She is awake. She is not in acute distress. Appearance: Normal appearance. She is well-developed and well-groomed. She is obese. She is not ill-appearing, toxic-appearing or diaphoretic. HENT: Head: Normocephalic. Right Ear: External ear normal. Left Ear: External ear normal. Nose: Nose normal. Eyes: General: Vision grossly intact. Conjunctiva/sclera: Conjunctivae normal. Pupils: Pupils are equal, round, and reactive to light. Neck: Vascular: No JVD. Trachea: Trachea normal. Cardiovascular: Rate and Rhythm: Normal rate and regular rhythm. Pulses: Normal pulses. Heart sounds: Normal heart sounds. No murmur heard. Pulmonary: Effort: Pulmonary effort is normal. No accessory muscle usage, prolonged expiration or respiratory distress. Breath sounds: Normal breath sounds. Musculoskeletal: Cervical back: Neck supple. Skin: General: Skin is warm and dry. Capillary Refill: Capillary refill takes less than 2 seconds. Neurological: General: No focal deficit present. Mental Status: She is alert and oriented to person, place, and time. Mental status is at baseline. Psychiatric: Attention and Perception: Attention and perception normal. Mood and Affect: Mood and affect normal. Speech: Speech normal. Behavior: Behavior normal. Behavior is cooperative. Thought Content: Thought content normal. Cognition and Memory: Cognition and memory normal. Judgment: Judgment normal. ASSESSMENT/PLAN: 1. Anxiety - ICD9: 300.00, ICD10: F41.9 (primary diagnosis) Worsening anxiety, check labs, will keep hydroxyzine PRN to try but add Lamictal. She is aware thiscan interfere with the effectiveness of her control pills and she is aware to utilize a back up method. 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 - TSH BLD - VITAMIN B12 BLOOD - T3 FREE BLD - T4 FREE/FREE THYROX - LAMOTRIGINE 25 MG TABLET 2. Anxiety attack - ICD9: 300.01, ICD10: F41.0 - HYDROXYZINE HCL 10 MG TABLET 3. Other fatigue - ICD9: 780.79, ICD10: R53.83 Check labs and HSAT. - HOME SLEEP APNEA TEST (HSAT) - CBC + DIFF - IRON + TIBC - COMP METABOLIC PANEL - TSH BLD - VITAMIN D 25 HYDROXY - HGB A1C - VITAMIN B12 BLOOD - T3 FREE BLD - T4 FREE/FREE THYROX 4. HELDER (obstructive sleep apnea) - ICD9: 327.23, ICD10: G47.33 Meets STOPBANG criteria, S, T, B - HOME SLEEP APNEA TEST (HSAT) 5. Vitamin D deficiency - ICD9: 268.9, ICD10: E55.9 - VITAMIN D 25 HYDROXY 6. Class 2 obesity with body mass index (BMI) of 37.0 to 37.9 in adult, unspecified obesity type, unspecified whether serious comorbidity present - ICD9: 278.00, V85.37, ICD10: E66.9, Z68.37 - HOME SLEEP APNEA TEST (HSAT) - TSH BLD - HGB A1C - T3 FREE BLD - T4 FREE/FREE THYROX 7. Encounter for therapeutic drug monitoring - ICD9: V58.83, ICD10: Z51.81 - CBC + DIFF - COMP METABOLIC PANEL Portions of this note have been entered by ancillary staff. I have reviewed and when necessary edited, so that they are an adequate record of my encounter with this patient Please note that parts of this document were created using voice recognition software and therefore may contain grammatical errors. Patient verbalizes understanding of instructions from today's visit and in agreement with treatmentplan. Questions answered. Agrees to call the office if questions, concerns of issues with acute symptoms not improving or if they worsen. See diagnoses and orders for additional plan(s). Allergies and medications were reviewed, list was updated, and refills given if needed. Past medical, surgical, social, and family history reviewed and updated as appropriate. Encouraged proper diet & exercise as well as compliance with taking medications. Age- appropriate health preventative measures were discussed. Return in about 4 weeks (around 08/09/2022) for recheck on new medication.. Cassi Riley APRN-HERSON documented in this encounterCenterville06-05-2023 Instructions* Patient Instructions* Manjit Flores APRN.CNP - 07/10/2022 12:31 PM EDT ANXIETY ATTACKS GENERAL INFORMATION: Anxiety is an uncomfortable feeling that something unpleasant or dangerous will happen. Anxiety attacks sometimes occur after the of a loved one or from a stressful situation such as job or spouse problems. Anxiety is a normal reaction to stress or strong emotion, but, insome people, it becomes too severe for them to control and interferes with daily life. Sometimes, anxiety may be a symptom of a mental or emotional illness, a physical illness (such as an overactive thyroid gland), or withdrawal from tobacco, alcohol, or drugs. During an anxiety attack, you may be jumpy, irritable, and tense and have trouble concentrating or thinking clearly. You may have nausea,diarrhea, blurred vision, sweaty palms, a dry mouth, and a pounding heart. You may feel shaky and light-headed, have pressure in your chest, and have trouble breathing. Some people think they are having a heart attack or a stroke during an anxiety attack. Anxiety may make you feel so helpless or out of control that you are afraid to be alone or leave the house. INSTRUCTIONS: 1. Avoid smoking, drugs, alcohol, and caffeine. These can either cause anxiety or make your symptoms worse. 2. Relaxation exercises or a physical activity such as walking, jogging, or swimming may help you feel less tense or troubled. 3. Talking with a counselor may help you understand the source of your anxiety and help you overcome it. Ask your doctor or clergyman to recommend someone to help you, or look in the Yellow Pages of the telephone book under Mental Health to find the name and telephone number of mental health services in your community. CONTACT YOUR DOCTOR IF: 1. Your symptoms of anxiety become worse and self-treatment has failed. 2. You develop new, unexplained symptoms. 3. You have problems that may be related to medication you are taking. RETURN TO THE ED IF: 1. You have a sudden feeling of panic or fear that you can't control. 2. You have chest pain, sweating, breathlessness, or pain in your jaw, neck, or arm during an anxiety attack. documented in this encounterCenterville06-05-2023 History of Present illness Narrative* Manjit Flores APRN.CNP - 07/10/2022 11:57 AM EDT I have communicated my name and active licensure. The patient's identity and physical location wereverified at the time of this visit. Either the patient or their legal sales representative printing paper has been informed of the risks and benefits of -- and alternatives to -- treatment through a remote evaluation andconsents to proceed with the evaluation remotely. Telemedicine Visit - Distance Health Virtual Visit Note Platform patient seen on: [employer] Online platform Location of patient: [place] PCP: HPI: Sasha Rachel is a 37 year old year old female presents for c/o panic attack. Reports she has hadone previously, which was a few years ago; did not seek medical attention at that time. Reports she has had a very stressful month between illnesses, work, and family life. Was at her son's doctor's appointment this AM and he is having medical concerns. States son is Autistic and currently being worked up for constipation that may result in an enema. States during appointment she started feeling like she was having difficulty breathing. Left appointment and tried focusing on work; still feels like she is on the edge of having a panic attack. Attempted talking to a friend withoutimprovement. Current symptoms include feeling like her head is spinning, feels like she can't calm down, fingers are tingling, body is hurting and feels all knotted up, and had some pretty serious diarrhea prior to call. Denies headache, chest pain or tightness, SOB, difficulty breathing, palpitations, SI/HI, or other concerning symptoms. Per psych note from 01/18/2022 patient in anxiety management, CBT for anxiety. Takes Zoloft 100 mg daily for depression PAST MEDICAL HISTORY Diagnosis Date Abnormal Pap smear of cervix 2004 Allergic rhinitis due to other allergen Depressive disorder, not elsewhere classified Fibromyalgia Food poisoning 2014 Irritable bowel syndrome Myalgia and myositis, unspecified Other chronic sinusitis PAST SURGICAL HISTORY Procedure Laterality Date HYSTEROSCOPY BX ENDOMETRIUM&/POLYPC W/WO D&C 09/18/2019 hysteroscopy D&C for AUP TONSILLECTOMY & ADENOIDECTOMY AGE 12/> 1996 FAMILY HISTORY Problem Relation Age of Onset Breast Cancer Mother other (hypercholesterolemia) Mother diet controlled Parkinson s Disease Father Prostate Cancer Father No Known Problems Sister Heart Maternal Grandmother Psychiatry Maternal Grandfather Hypertension Paternal Grandmother Heart Paternal Grandmother Heart Paternal Grandfather Autism Son Social History Tobacco Use Smoking status: Never Smokeless tobacco: Never Vaping Use Vaping Use: Never used Substance Use Topics Alcohol use: Yes Comment: Occasionally, but not while Drug use: No Current Outpatient Medications Medication Sig ipratropium bromide (ATROVENT) 42 mcg (0.06 %) nasal spray Use 1 [place] in each nostril three times daily for 7 days. predniSONE (DELTASONE) 10 mg tablet TAKE BY MOUTH 4 TABLETS DAILY FOR 2 DAYS, THEN 3 TABLETS DAILY FOR 2 DAYS, THEN 2 TABLETS DAILY FOR 2 DAYS, THEN 1 TABLET DAILY FOR 2 DAYS. (Patient not taking: Reported on 03/09/2022) norgestimate 0.25 mg-ethinyl estradiol 35 mcg (SPRINTEC) 0.25-35 mg-mcg per tablet Take 1 tablet bymouth once daily. sertraline (ZOLOFT) 100 mg tablet Take 1 tablet by mouth once daily. cyclobenzaprine (FLEXERIL) 10 mg tablet Take 1 tablet by mouth at bedtime as needed for pain (neck pain). ibuprofen (MOTRIN) 200 mg tablet Take 4 tablets by mouth every 8 hours as needed for pain (headache). Take with food. albuterol HFA (PROAIR HFA) 90 mcg/actuation inhaler Inhale 2 Puffs as instructed every 6 hours as needed. No current facility-administered medications for this visit. ALLERGIES Allergen Reactions Cats Other: See Comments Grass Pollen Other: See Comments Mold Other: See Comments Seasonal Allergies Other: See Comments Video Exam (Examination performed via Video enabled technology) General appearance: Alert, oriented, pleasant, in NAD: Yes Ill appearing: Yes Lethargic appearing: Yes PSYCH: Posture and motor behavior: normal posture and motor behavior Dress, grooming, personal hygiene: normal dress and grooming Facial expression: good eye contact, smiling intermittently; patient tearful at times Speech: normal speech Mood: anxious Coherency and relevance of thought: normal thought processes Memory: normal memory ASSESSMENT/PLAN: 1. Anxiety attack - ICD9: 300.01, ICD10: F41.0 - HYDROXYZINE HCL 10 MG TABLET - Discussed treatment options and modalities - Pharmacotherapy initiated: Yes; prescribed Atarax 10 mg - can take 1-2 capsules TID PRN anxiety. Discussed calling for an internal/family medicine appointment for further management - Reassurance provided - Non pharmacologic treatment discussed: Yoga, exercise, meditation, breathing techniques - Red flags discussed for in person care - All questions answered Manjit Flores APRN.AIR DEFENCE OFFICER July 10, 2022 If you let us know who your primary care provider is, we will send them a notification of today's visit through our electronic medical records system. Since not all providers have access to our notifications, we strongly encourage you to share the following record of today's visit with your primarycare provider at your next visit. This will help in providing you the best care. If you do not have an established Primary Care physician and would like to continue care with a [facility] physician, please ask your provider to place a Establish PrimaryCare order. Use [employer] to manage your care, wherever you are, 28/08, on your mobile device or computer. [employer] connects you to [employer] so you can access all your health information in one place and also schedule and request virtual appointments with primary care providers. documented in this encounterCenterville02-02-2023 History of Present illness Narrative* Lady Ayoub LPN - 03/09/2022 11:40 AM EST Patient presented Express Care Nurse visit after virtual visit for Strep testing. Patient verified by name and date of reported throat pain rated 7 x4 days. Allergies and medications updated, patient advised of negative results, verbalized understanding. Lady Ayoub LPN documented in this encounterCenterville02-02-2023 Instructions* Patient Instructions* Magi Maxwell APRN.HERSON - 03/09/2022 10:37 AM EST Images from the original note were not included. I Feel So Sick, Don t I Need Antibiotics? Did you know. . . There s only a 1 in 4000 chance that an antibiotic will help most acute upper respiratory infections. But there s a 1 in 4 chance of diarrhea and a 1 in 50 chance of a skin reaction and a 1 in 1000 chance it ll cause an ER visit due to some side effect. Antibiotics can also lead to more resistant infections that are harder to treat. Bottom line: There s little to no benefit to taking antibiotics for most acute upper respiratory tract infections...and the downsides are real. Viruses cannot be treated by antibiotics. Viruses cause most upper respiratory infections, which include head colds, sore throats, bronchitis, and sinus infections. The common cold and influenza do not respond to antibiotics. Less than 10 percent of acute bronchitis cases are caused by bacteria. Most cases of acute ear infections also resolve without antibiotics. Sore throats (pharyngitis) are usually caused by viruses as well. Antibiotics are not recommended unless you have strep throat and only about 15 to 30 percent of pharyngitis cases in children and up to 10 percent of cases in adults are due to strep throat. Almost all cases of acute bacterial sinusitis resolve without antibiotics. There are a few situations in which antibiotics are needed, however. See your health care provider if you have a decreased immune system due to cancer, or if you are taking steroids, have HIV, or have had an organ transplant, or if your symptoms worsen or last longer than 7 to 10 days. Most often you should use the vbms-uad-juemimk symptomatic treatment/s that your health care provider has recommended. These would include analgesic products such as acetaminophen (Tylenol ), decongestants, antihistamines, salt water gargles, drinking warm tea, and other methods to help treat the symptoms. Also remember that your best defense against getting the flu is to get a flu shot, but this does not, unfortunately, protect you against the many other viruses out in the environment that cause the other kinds of illnesses other than the actual influenza. Adult Sinusitis Patient Education What is Sinusitis? Sinusitis [qthx-rwn-umrc-tis] is inflammation of the sinuses or swelling of the lining of the sinus cavity or nose. During an infection the sinuses become blocked with fluid causing swelling of the lining of the sinuses. Symptoms: (viral and bacterial infections) Stuffy nose Runny nose Postnasal drip Fever Toothache Headache Tiredness Cough Sore throat Face and head pressure and or pain Common causes: 98% of sinus infections are viral caused by viruses. Risk Factors of Sinusitis Include: Allergies, air pollution, indoor humidity and outdoor temperature changes, andstructural changes inthe nose may contribute to sinus pain, pressure and congestion. When to get help? Temperature greater than 100.4 F Symptoms lasting more than 10 days or worsening symptoms greater than 7-10 days. If you do not improve or worsen after a course of antibiotics, you should be re-examined. Diagnosis and Treatment: Your healthcare provider will ask a number of questions about your symptoms and how long they have occurred. If symptoms of sinusitis persist greater than 10 days, it is possible you have a bacterial sinus infection and an antibiotic is prescribed. If it is viral, antibiotics will not help. You may be instructed to take rczu-uzk-yquzxxf medications for symptoms. including fever reducers acetaminophen or ibuprofen, nasal saline spray, cough and cold preparations and decongestants as prescribed by the physician, nurse practitioner or physician assistant fitness manager. Self-Care and Prevention: Rest Fluids for hydration Good hand washing Humidifier Avoid smoking and exposure to second hand smoke Avoid sick contacts documented in this encounterCenterville02-02-2023 History of Present illness Narrative* Magi Maxwell APRN.CNP - 03/09/2022 10:22 AM EST Telemedicine Visit - Distance Health Virtual Visit Note Patient seen on [employer] platform. Location of patient: [place] History of Present Illness Sasha Rachel is a 37 year old year old female who presents for the past 4 days with symptoms that are:constant. Symptoms include: Positive for Cough, Nasal congestion, PND, Face pain/pressure, and Otalgia, Negative for Fever Oral intake: Yes Tobacco use: No Second hand smoke exposure: No Recent exposure to strep:No Sick contacts: NA Recent travel: NA OTC meds/remedies that patient has tried: Pt. With stomach issues on Sunday and Sunday, then Sunday started with URI symptoms. Covid test negative. Daytime and Nighttime medication PAST MEDICAL HISTORY Diagnosis Date Abnormal Pap smear of cervix 2004 Allergic rhinitis due to other allergen Depressive disorder, not elsewhere classified Fibromyalgia Food poisoning 2014 Irritable bowel syndrome Myalgia and myositis, unspecified Other chronic sinusitis PAST SURGICAL HISTORY Procedure Laterality Date HYSTEROSCOPY BX ENDOMETRIUM&/POLYPC W/WO D&C 09/18/2019 hysteroscopy D&C for AUP TONSILLECTOMY & ADENOIDECTOMY AGE 12/> 1996 FAMILY HISTORY Problem Relation Age of Onset Breast Cancer Mother other (hypercholesterolemia) Mother diet controlled Parkinson s Disease Father Prostate Cancer Father No Known Problems Sister Heart Maternal Grandmother Psychiatry Maternal Grandfather Hypertension Paternal Grandmother Heart Paternal Grandmother Heart Paternal Grandfather Autism Son Social History Tobacco Use Smoking status: Never Smokeless tobacco: Never Vaping Use Vaping Use: Never used Substance Use Topics Alcohol use: Yes Comment: Occasionally, but not while Drug use: No Current Outpatient Medications Medication Sig predniSONE (DELTASONE) 10 mg tablet TAKE BY MOUTH 4 TABLETS DAILY FOR 2 DAYS, THEN 3 TABLETS DAILY FOR 2 DAYS, THEN 2 TABLETS DAILY FOR 2 DAYS, THEN 1 TABLET DAILY FOR 2 DAYS. norgestimate 0.25 mg-ethinyl estradiol 35 mcg (SPRINTEC) 0.25-35 mg-mcg per tablet Take 1 tablet bymouth once daily. sertraline (ZOLOFT) 100 mg tablet Take 1 tablet by mouth once daily. cyclobenzaprine (FLEXERIL) 10 mg tablet Take 1 tablet by mouth at bedtime as needed for pain (neck pain). ibuprofen (MOTRIN) 200 mg tablet Take 4 tablets by mouth every 8 hours as needed for pain (headache). Take with food. albuterol HFA (PROAIR HFA) 90 mcg/actuation inhaler Inhale 2 Puffs as instructed every 6 hours as needed. No current facility-administered medications for this visit. ALLERGIES Allergen Reactions Cats Other: See Comments Seasonal Allergies Other: See Comments Video Exam (Examination performed via Video enabled technology) General appearance: Alert, oriented, pleasant, in NAD :Yes Ill appearing :No Lethargic appearing :No Eyes: Sclera clear :Yes Conjunctiva without erythema :Yes Ears: Tragus / outer ear tenderness by self palpation :No Oropharynx: unable to visualize due to camera Frontal sinus tenderness by self palpation;No Maxillary sinus tenderness by self palpation :Yes Tender cervical adenopathy by self palpation :Yes Respiratory distress :No Coughing noted :No Audible wheezing noted :No [facility] Criteria - Age (2-14=+1, 15-44=0, >=45 -1): 0 - Tonsillar exudates: 0 - Tender anterior cervical adenopathy: +1 - Fever by history (>38 or 100.4): 0 - Absence of cough: 0 0 points- probability of strep is 1-2.5% 1 point- probability of strep is 5-10% 2 points- probability of strep is 11-17% 3 points- probability of strep is 28-35% 4 points- probability of strep is 51-53% ASSESSMENT/PLAN: 1. Acute pharyngitis, unspecified etiology - ICD9: 462, ICD10: J02.9 - Alere Strep Test ordered, no culture pending - Discussed supportive care treatment with fluids, rest and analgesia. - Contagious dz precautions discussed- including considered contagious until on antibiotics for 24 hours - STREP A MOLECULAR (POC) 2. URI, acute - ICD9: 465.9, ICD10: J06.9 - Discussed viral etiology and rationale for treatment. - Symptomatic treatment with prn analgesia - Supportive care with fluids and rest - Follow up in one week if symptoms persist or sooner if worsening of symptoms IN PERSON -Allergy medication (Claritin, Zyrtec, Cait-generic is fine) to dry up drainage -Nasal saline to flush out bacteria -Ibuprofen to decrease pressure pain. -Mucinex (generic is fine) 1200 mg twice daily to help with cough and to thin out mucus -[email or web address] This link shares information about when antibiotics may help and when they may not. - Red flags discussed for need for in person care - All questions answered Magi Maxwell APRN.CNP If you let us know who your primary care provider is, we will send them a notification of today s visit through our electronic medical records system. Since not all providers have access to our notifications, we strongly encourage you to share the following record of today s visit with your primarycare provider at your next visit. This will help in providing you the best care. If you do not have an established Primary Care physician and would like to continue care with a [facility] physician, please ask your provider to place a Establish PrimaryCare order. Use [employer] to manage your care, wherever you are, 28/08, on your mobile device or computer. [employer] connects you to [employer] so you can access all your health information in one place and also schedule and request virtual appointments with primary care providers. documented in this encounterCenterville12-29-2022 History of Present illness Narrative* Jhon Moseley MD - 02/02/2022 11:54 AM EST This note was created using NoteWriter. Subjective Patient presents with: Back Pain Patient reports low back pain with acute onset since the patient lifted her 35 lb son . The pain is located in lower back midline with radiation to the tailbone and described as sharp. Pain is worse with changing positions and bending and better with rest and lying down. Associated symptoms include numbness, tingling of the left anterolateral thigh. She had been taking ibuprofen, andacetaminophen with little relief. Review of Systems Constitutional: Negative for fever and unexpected weight change. Gastrointestinal: Negative. Genitourinary: Negative. Musculoskeletal: Negative for gait problem. Skin: Negative for rash. Neurological: Negative for weakness. ACTIVE PROBLEM LIST Fibromyalgia Depressive Disorder, not Elsewhere Classified Anxiety Numbness and Tingling of Lower Extremity Class 2 Obesity With Body Mass Index (Bmi) of 37.0 to 37.9 in Adult Current Outpatient Medications Medication Sig norgestimate 0.25 mg-ethinyl estradiol 35 mcg (SPRINTEC) 0.25-35 mg-mcg per tablet Take 1 tablet bymouth once daily. sertraline (ZOLOFT) 100 mg tablet Take 1 tablet by mouth once daily. cyclobenzaprine (FLEXERIL) 10 mg tablet Take 1 tablet by mouth at bedtime as needed for pain (neck pain). ibuprofen (MOTRIN) 200 mg tablet Take 4 tablets by mouth every 8 hours as needed for pain (headache). Take with food. albuterol HFA (PROAIR HFA) 90 mcg/actuation inhaler Inhale 2 Puffs as instructed every 6 hours as needed. predniSONE (DELTASONE) 10 mg tablet TAKE BY MOUTH 4 TABLETS DAILY FOR 2 DAYS, THEN 3 TABLETS DAILY FOR 2 DAYS, THEN 2 TABLETS DAILY FOR 2 DAYS, THEN 1 TABLET DAILY FOR 2 DAYS. No current facility-administered medications for this visit. Objective BP 128/70 (BP Site: Left Arm, BP Position: Sitting, BP Cuff Size: Large Adult) Pulse 84 Temp 36.4 C (97.5 F) (Temporal) Resp 16 Wt 117.9 kg (260 lb) LMP 06/04/2021 BMI 38.96 kg/m Physical Exam Constitutional: General: She is not in acute distress. Appearance: She is not ill-appearing. Musculoskeletal: Lumbar back: Tenderness present. No deformity or spasms. Decreased range of motion. Negative right straight leg raise test and negative left straight leg raise test. No scoliosis. Neurological: Mental Status: She is alert. Motor: Motor function is intact. Gait: Gait is intact. Deep Tendon Reflexes: Reflexes are normal and symmetric. Assessment and Plan 1. Acute midline low back pain without sciatica - ICD9: 724.2, ICD10: M54.50 Lumbar strain. Shared Medical Decision Making was done: Medications discussed. Benefits: Medication may help symptoms in the short term. Risks: Possible side effects were discussed. Possible interactions: ibuprofen. No ibuprofen for 24 hours. Options: PT or chiropractic treatment may help. She has instructions for back exercises from previous physical therapy. - KETOROLAC 60 MG/2 ML INTRAMUSCULAR SOLUTION - PREDNISONE 10 MG TABLET Jhon Moseley MD documented in this encounterCenterville09-16-2022 History of Present illness Narrative* Shefali Carvajal, DEPARTMENT HEAD.DATABASE TECHNICIAN - 10/21/2021 7:40 AM EDT SUBJECTIVE: HEPATITIS B(1 of 3 - 3-dose series) Never done INFLUENZA(1) due on 10/06/2021 HPI Sasha Rachel is a 36 year old female. HPI excerpted from previous visits: Has been seen by Dr. Candelaria Blue for depression. Taking Zoloft. Ms. Rachel has noted that her mood seems a little low over the last year. Notes trouble staying asleep, she is awakening around 2:00am after going to bed at 8 pm, her mind is active when this occurs. The pandemic has been difficult. Notes she and her have been vaccinated, has a young child, 2 years old but is not yet. Has been generally avoiding being out in public to decrease risk for him. She notes the life seems to help at current dose. She notes higher dose of Zoloft seems to be too much for her in the past. No voiced SI/HI. Previous noted tailbone and low back pain, seen by Dr. Kirkpatrick. She was referred to pain management byDr. Kirkpatrick. 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 She notes pain is less in hisarea. Has exercise at home, does not consistently do these. Reports considering having another child. Notes difficulty with weight loss and adhering to a healthy diet. No current routine exercise. Today reports cough and wheezing are much improved, just occasional now. Fatigue is persisting so she is less active now. Notes she is stress eating. Notes child with diagnosis of autism. Notes mood is stable, continues on medication and seeing counselor currently. No voiced SI HI. Discussed Wegovy at her last visit, has not checked insurance. Has seen dietitian, discussed Mediterranean diet in addition to other measures. Since last seen in , had UC visit for headache, recurrent on 10/19/2021. Noted stress, decreased sleep and hydration at visit. Declined toradol injection. Presents today for follow up regarding headache. Notes starts at the back of her head/neck and wraps around like a band. Frequency: daily x 4 days Character: can be sharp / dull Duration: a couple of hours Aura: no Aggravating: under significant socia stress, studying, job going on strike Alleviating: helped with Tyelnol and 800 mg ibuprofen. No history of migraine Review of Systems Constitutional: Negative. Neurological: Positive for headaches. Psychiatric/Behavioral: Negative for dysphoric mood. Objective BP 120/80 Pulse 68 Resp 16 Wt 113.9 kg (251 lb) LMP 06/04/2021 BMI 37.61 kg/m Physical Exam Vitals and nursing note reviewed. Constitutional: Appearance: Normal appearance. HENT: Head: Normocephalic and atraumatic. Eyes: Conjunctiva/sclera: Conjunctivae normal. Neck: Thyroid: No thyromegaly or thyroid tenderness. Cardiovascular: Rate and Rhythm: Normal rate and regular rhythm. Pulses: Carotid pulses are 2+ on the right side and 2+ on the left side. Radial pulses are 2+ on the right side and 2+ on the left side. Heart sounds: Normal heart sounds. Pulmonary: Effort: Pulmonary effort is normal. Breath sounds: Normal breath sounds. Abdominal: General: Bowel sounds are normal. Palpations: Abdomen is soft. Musculoskeletal: Cervical back: Muscular tenderness present. Decreased range of motion. Right lower leg: No edema. Left lower leg: No edema. Skin: General: Skin is warm and dry. Neurological: General: No focal deficit present. Mental Status: She is alert and oriented to person, place, and time. ALLERGIES Allergen Reactions Cats Other: See Comments Seasonal Allergies Other: See Comments Medications albuterol HFA (PROAIR HFA) 90 mcg/actuation inhaler^Inhale 2 Puffs as instructed every 6 hours as needed.^Disp: 1 Inhaler^Rfl: 2 norgestimate 0.25 mg-ethinyl estradiol 35 mcg (SPRINTEC) 0.25-35 mg-mcg per tablet^Take 1 tablet bymouth once daily.^Disp: 84 tablet^Rfl: 3 sertraline (ZOLOFT) 100 mg tablet^Take 1 tablet by mouth once daily.^Disp: 90 tablet^Rfl: 3 cyclobenzaprine (FLEXERIL) 10 mg tablet^Take 1 tablet by mouth at bedtime as needed for pain (neck pain).^Disp: 30 tablet^Rfl: 0 ibuprofen (MOTRIN) 200 mg tablet^Take 4 tablets by mouth every 8 hours as needed for pain (headache). Take with food.^Disp: ^Rfl: PAST MEDICAL HISTORY Diagnosis Date Abnormal Pap smear of cervix 2004 Allergic rhinitis due to other allergen Depressive disorder, not elsewhere classified Fibromyalgia Food poisoning 2014 Irritable bowel syndrome Myalgia and myositis, unspecified Other chronic sinusitis Social History Tobacco Use Smoking status: Never Smokeless tobacco: Never Vaping Use Vaping Use: Never used Substance Use Topics Alcohol use: Yes Comment: Occasionally, but not while Drug use: No Component Latest Ref Rng & Units 07/01/2020 09/17/2021 Protein, Total 6.3 - 8.0 g/dL 5.6 (L) 7.5 Albumin 3.9 - 4.9 g/dL 4.0 4.1 Calcium 8.5 - 10.2 mg/dL 8.7 9.0 Bilirubin, Total 0.2 - 1.3 mg/dL 0.4 0.3 Alkaline Phosphatase 34 - 123 U/L 65 54 AST 13 - 35 U/L 16 24 Glucose 74 - 99 mg/dL 76 91 BUN 7 - 21 mg/dL 15 18 Creatinine 0.58 - 0.96 mg/dL 0.68 0.70 Sodium 136 - 144 mmol/L 135 (L) 137 Potassium 3.7 - 5.1 mmol/L 4.1 4.6 Chloride 97 - 105 mmol/L 103 107 (H) CO2 22 - 30 mmol/L 22 17 (L) Anion Gap 9 - 18 mmol/L 10 13 ALT 7 - 38 U/L 15 11 eGFR- >60 eGFR-All Other Races . >60 eGFR >=60 mL/min/1.73m 115 Cholesterol, Total <200 mg/dL 212 (H) 214 (H) Triglyceride <150 mg/dL 85 152 (H) HDL Cholesterol >39 mg/dL 61 57 LDL Cholesterol <100 mg/dL 134 (H) 127 (H) Non HDL Cholesterol <130 mg/dL 151 (H) 157 (H) Fasting Time hrs 12 12 VLDL Cholesterol <30 mg/dL 17 30 (H) TC:HDL Ratio <5.10 3.48 3.75 LDL:HDL Ratio <2.54 2.20 2.23 The ASCVD Risk score (Otoniel KEVIN, et al., 2019) failed to calculate for the following reasons: The 2019 ASCVD risk score is only valid for ages 40 to 79 ASSESSMENT/PLAN: 1. Tension headache - ICD9: 307.81, ICD10: G44.209 (primary diagnosis) - KETOROLAC 60 MG/2 ML INTRAMUSCULAR SOLUTION - CYCLOBENZAPRINE 10 MG TABLET - take at bedtime for the next 2-3 days then as needed at bedtime - IBUPROFEN 200 MG TABLET - take 800 mg at first sign of headache as needed Check posture and avoid extending neck with reading/studying. Get up and walk around, roll shoulders and gentle neck ROM Q 1 hour while studying. 2. Encounter for immunization - ICD9: V03.89, ICD10: Z23 3. Need for influenza vaccination - ICD9: V04.81, ICD10: Z23 - INFLUENZA VACCINE QUADRIVALENT 6 MO - 64 YRS IM 4. Cervicalgia - ICD9: 723.1, ICD10: M54.2 - KETOROLAC 60 MG/2 ML INTRAMUSCULAR SOLUTION - CYCLOBENZAPRINE 10 MG TABLET - IBUPROFEN 200 MG TABLET Shefali Carvajal APRN.CNS Medical Decision Making: Problems: Low: Acute, uncomplicated illness or injury Risk: Moderate: Drug management Medical Decision Making Level: 3 - Low documented in this encounterCent[place]09-14-2022 History of Present illness Narrative* Satya Catalan APRN.AIR DEFENCE OFFICER - 10/19/2021 3:38 PM EDT Subjective HPI HPI Sasha Rachel is a 36 year old female who presents today for CC of headaches, recurring for fewweeks. Has tried otc medication with minimal relief. Symptoms are worsened by possibly stress from work. Risk factors has very tough exam coming up and stress at home. Reports not sleeping well and likely not drinking enough water. .Patient presents with: Headache: Migraines, late Sunday night and has returned PAST MEDICAL HISTORY Diagnosis Date Abnormal Pap smear of cervix 2004 Allergic rhinitis due to other allergen Depressive disorder, not elsewhere classified Fibromyalgia Food poisoning 2014 Irritable bowel syndrome Myalgia and myositis, unspecified Other chronic sinusitis PAST SURGICAL HISTORY Procedure Laterality Date HYSTEROSCOPY BX ENDOMETRIUM&/POLYPC W/WO D&C 09/18/2019 hysteroscopy D&C for AUP TONSILLECTOMY & ADENOIDECTOMY AGE 12/> 1996 ALLERGIES Cats and Seasonal Allergies MEDICATIONS albuterol HFA (PROAIR HFA) 90 mcg/actuation inhaler Inhale 2 Puffs as instructed every 6 hours as needed. norgestimate 0.25 mg-ethinyl estradiol 35 mcg (SPRINTEC) 0.25-35 mg-mcg per tablet Take 1 tablet bymouth once daily. sertraline (ZOLOFT) 100 mg tablet Take 1 tablet by mouth once daily. benzonatate (TESSALON PERLES) 100 mg capsule Take 2 capsules by mouth three times daily as needed. (Patient not taking: Reported on 10/19/2021) FAMILY HISTORY Problem Relation Age of Onset Breast Cancer Mother other (hypercholesterolemia) Mother diet controlled Parkinson s Disease Father Prostate Cancer Father No Known Problems Sister Heart Maternal Grandmother Psychiatry Maternal Grandfather Hypertension Paternal Grandmother Heart Paternal Grandmother Heart Paternal Grandfather Autism Son Social History Tobacco Use Smoking status: Never Smokeless tobacco: Never Vaping Use Vaping Use: Never used Substance Use Topics Alcohol use: Yes Comment: Occasionally, but not while Drug use: No Review of Systems Constitutional: Negative for chills and fever. HENT: Negative for congestion, ear discharge, ear pain, hearing loss and sore throat. Eyes: Negative for blurred vision, double vision, photophobia, pain, discharge and redness. Respiratory: Negative for cough and shortness of breath. Cardiovascular: Negative for chest pain. Gastrointestinal: Negative for abdominal pain, nausea and vomiting. Musculoskeletal: Negative for myalgias and neck pain. Skin: Negative for rash. Neurological: Positive for headaches. Negative for tremors, sensory change, speech change and focalweakness. Psychiatric/Behavioral: Negative for depression. Objective Blood pressure 110/80, pulse 79, temperature 36.4 C (97.5 F), resp. rate 20, weight 114.7 kg (252 lb 12.8 oz), last menstrual period 06/04/2021, SpO2 99 %. Physical Exam Constitutional: General: She is not in acute distress. Appearance: She is not diaphoretic. HENT: Head: Normocephalic and atraumatic. Right Ear: Hearing, tympanic membrane, ear canal and external ear normal. Left Ear: Hearing, tympanic membrane, ear canal and external ear normal. Eyes: General: Lids are normal. Lids are everted, no foreign bodies appreciated. No scleral icterus. Right eye: No discharge. Left eye: No discharge. Conjunctiva/sclera: Conjunctivae normal. Pupils: Pupils are equal, round, and reactive to light. Neck: Trachea: Trachea normal. Cardiovascular: Rate and Rhythm: Normal rate and regular rhythm. Heart sounds: Normal heart sounds. Pulmonary: Effort: Pulmonary effort is normal. Breath sounds: Normal breath sounds. Musculoskeletal: Cervical back: Normal range of motion and neck supple. Lymphadenopathy: Cervical: No cervical adenopathy. Skin: Findings: No rash. Neurological: Mental Status: She is alert. She is not disoriented. Cranial Nerves: No cranial nerve deficit or facial asymmetry. Sensory: Sensation is intact. Motor: No weakness. Coordination: Romberg sign negative. Coordination normal. Klaymi-Hwpc-Zpyevl Test and Heel to Kirkpatrick Test normal. Rapid alternating movements normal. Gait: Gait is intact. Gait normal. Deep Tendon Reflexes: Reflexes are normal and symmetric. Reflex Scores: Bicep reflexes are 2+ on the right side and 2+ on the left side. Patellar reflexes are 2+ on the right side and 2+ on the left side. ASSESSMENT/PLAN: 1. Headache, unspecified headache type - ICD9: 784.0, ICD10: R51.9 Education provided Declined toradol shot today Will schedule f/u with pcp for recheck Agrees to plan Satya Catalan APRN.HERSON documented in this encounterCenterville09-14-2022 Instructions* Patient Instructions* Satya Catalan APRN.CNP - 10/19/2021 3:21 PM EDT HEADACHE GENERAL INFORMATION: Almost everyone has a headache occasionally. Most headaches are caused by tension, eye strain, or emotional upset. Headaches can also occur with many medical illnesses. They may be a side effect of some medications. A headache that occurs without other symptoms and only lasts a few hours probably isn't a cause for concern. INSTRUCTIONS: 1. You may use rvpz-poo-huzingt pain medication such as acetaminophen, ibuprofen, or aspirin unlessyour doctor recommends otherwise. 2. Try some of the following measures to relieve your headache: Stretch and massage the muscles in your shoulders, neck, jaw, and scalp. Take a hot bath. Rest in a quiet, darkened room. Place a warm or cold wet cloth (whichever feels better to you) over the aching area. 3. Don't skip meals or delay meals for very long. Drink plenty of fluids. 4. Avoid alcoholic beverages and cigarette smoking. These often make a headache worse. 5. Get plenty of rest. A good night's sleep often is the best way to relieve a headache. CONTACT YOUR DOCTOR IF: 1. Your headache gets worse or lasts longer than 24 hours. 2. You develop a temperature over 100.5 F (38 C) 3. You need to take medicine to relieve headache pain more than 3 times a week. RETURN TO THE ED IF: 1. Your headache is different from any headache you ever had before, or is the worst headache of your life. 2. You feel confused or drowsy. 3. Your neck feels stiff. 4. You have a temperature of 102 F (39 C) or higher. 5. You have eye problems such as sensitivity to light or blurred or double vision. 6. You start to vomit. 7. You have difficulty walking, talking, or moving your arms or legs. documented in this encounterCenterville08-15-2022 Instructions* Patient Instructions* Shefali Carvajal APRN.CNS - 09/19/2021 1:18 PM EDT Check you insurance for coverage for [employer]. documented in this encounterCenterville08-15-2022 History of Present illness Narrative* Shefali Carvajal, DEPARTMENT HEAD.DATABASE TECHNICIAN - 09/19/2021 1:00 PM EDT SUBJECTIVE: HEPATITIS B(1 of 3 - 3-dose series) Never done HPI Sasha Rachel is a 36 year old female. Has been seen by Dr. Candelaria Blue for depression. Taking Zoloft. Ms. Rachel has noted that her mood seems a little low over the last year. Notes trouble staying asleep, she is awakening around 2:00am after going to bed at 8 pm, her mind is active when this occurs. The pandemic has been difficult. Notes she and her have been vaccinated, has a young child, 2 years old but is not yet. Has been generally avoiding being out in public to decrease risk for him. She notes the life seems to help at current dose. She notes higher dose of Zoloft seems to be too much for her in the past. No voiced SI/HI. Previous noted tailbone and low back pain, seen by Dr. Kirkpatrick. She was referred to pain management byDr. Kirkpatrick. 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 She notes pain is less in hisarea. Has exercise at home, does not consistently do these. Reports considering having another child. Notes difficulty with weight loss and adhering to a healthy diet. No current routine exercise. Today reports cough and wheezing are much improved, just occasional now. Fatigue is persisting so she is less active now. Notes she is stress eating. Notes child with diagnosis of autism. Notes mood is stable, continues on medication and seeing counselor currently. No voiced SI HI. Discussed Wegovy at her last visit, has not checked insurance. Has seen dietitian, discussed Mediterranean diet in addition to other measures. Review of Systems Constitutional: Positive for fatigue. Respiratory: Positive for cough and wheezing. Psychiatric/Behavioral: Positive for dysphoric mood. Objective BP 122/70 Pulse 66 Resp 16 Ht 174 cm (5' 8.5) Wt 113.4 kg (250 lb) LMP 06/04/2021 OvG100% BMI 37.46 kg/m Physical Exam Vitals and nursing note reviewed. Constitutional: Appearance: Normal appearance. HENT: Head: Normocephalic and atraumatic. Eyes: Conjunctiva/sclera: Conjunctivae normal. Neck: Thyroid: No thyromegaly or thyroid tenderness. Cardiovascular: Rate and Rhythm: Normal rate and regular rhythm. Pulses: Carotid pulses are 2+ on the right side and 2+ on the left side. Radial pulses are 2+ on the right side and 2+ on the left side. Heart sounds: Normal heart sounds. Pulmonary: Effort: Pulmonary effort is normal. Breath sounds: Normal breath sounds. Abdominal: General: Bowel sounds are normal. Palpations: Abdomen is soft. Musculoskeletal: Right lower leg: No edema. Left lower leg: No edema. Skin: General: Skin is warm and dry. Neurological: General: No focal deficit present. Mental Status: She is alert and oriented to person, place, and time. ALLERGIES Allergen Reactions Cats Other: See Comments Seasonal Allergies Other: See Comments Medications albuterol HFA (PROAIR HFA) 90 mcg/actuation inhaler Inhale 2 Puffs as instructed every 6 hours as needed. norgestimate 0.25 mg-ethinyl estradiol 35 mcg (SPRINTEC) 0.25-35 mg-mcg per tablet Take 1 tablet bymouth once daily. sertraline (ZOLOFT) 100 mg tablet Take 1 tablet by mouth once daily. benzonatate (TESSALON PERLES) 100 mg capsule Take 2 capsules by mouth three times daily as needed. PAST MEDICAL HISTORY Diagnosis Date Abnormal Pap smear of cervix 2004 Allergic rhinitis due to other allergen Depressive disorder, not elsewhere classified Fibromyalgia Food poisoning 2014 Irritable bowel syndrome Myalgia and myositis, unspecified Other chronic sinusitis Social History Tobacco Use Smoking status: Never Smokeless tobacco: Never Vaping Use Vaping Use: Never used Substance Use Topics Alcohol use: Yes Comment: Occasionally, but not while Drug use: No Component Latest Ref Rng & Units 07/01/2020 09/17/2021 Protein, Total 6.3 - 8.0 g/dL 5.6 (L) 7.5 Albumin 3.9 - 4.9 g/dL 4.0 4.1 Calcium 8.5 - 10.2 mg/dL 8.7 9.0 Bilirubin, Total 0.2 - 1.3 mg/dL 0.4 0.3 Alkaline Phosphatase 34 - 123 U/L 65 54 AST 13 - 35 U/L 16 24 Glucose 74 - 99 mg/dL 76 91 BUN 7 - 21 mg/dL 15 18 Creatinine 0.58 - 0.96 mg/dL 0.68 0.70 Sodium 136 - 144 mmol/L 135 (L) 137 Potassium 3.7 - 5.1 mmol/L 4.1 4.6 Chloride 97 - 105 mmol/L 103 107 (H) CO2 22 - 30 mmol/L 22 17 (L) Anion Gap 9 - 18 mmol/L 10 13 ALT 7 - 38 U/L 15 11 eGFR- >60 eGFR-All Other Races . >60 eGFR >=60 mL/min/1.73m 115 Cholesterol, Total <200 mg/dL 212 (H) 214 (H) Triglyceride <150 mg/dL 85 152 (H) HDL Cholesterol >39 mg/dL 61 57 LDL Cholesterol <100 mg/dL 134 (H) 127 (H) Non HDL Cholesterol <130 mg/dL 151 (H) 157 (H) Fasting Time hrs 12 12 VLDL Cholesterol <30 mg/dL 17 30 (H) TC:HDL Ratio <5.10 3.48 3.75 LDL:HDL Ratio <2.54 2.20 2.23 The ASCVD Risk score (Ogden GALINA Jr., et al., 2013) failed to calculate for the following reasons: The 2013 ASCVD risk score is only valid for ages 40 to 79 ASSESSMENT/PLAN: 1. Routine medical exam - ICD9: V70.0, ICD10: Z00.00 (primary diagnosis) - Counseled on healthy diet and regular exercise - Calcium intake with supplements or by diet of 1000 mg/day for under 50 Endorse Mediterranean diet, portion control. Resume activity as able, start low and go slow to increase daily activity . Start with walking 5 minutes daily and slowly increase as tolerated. 2. Encounter for immunization - ICD9: V03.89, ICD10: Z23 - HEPATITIS B VACCINE, ADULT AGE 20+, IM 3. Class 2 obesity with body mass index (BMI) of 37.0 to 37.9 in adult, unspecified obesity type, unspecified whether serious comorbidity present - ICD9: 278.00, V85.37, ICD10: E66.9, Z68.37 Stable - Pharmacological intervention, -Has had medical nutrition therapy with dietitian, and considering wegovy. 4. Post-COVID chronic cough - ICD9: 786.2, 139.8, ICD10: R05.3, U09.9 Nearly resolved, occasional cough or wheeze - BENZONATATE 100 MG CAPSULE Keep appt in Sep 2021 Shefali Carvajal APRN.CNS Medical Decision Making: Medical Decision Making Level: 1 - N/A documented in this encounterCenterville08-08-2022 Instructions* Patient Instructions* Dionna Levin, JOSEPH - 09/12/2021 8:29 AM EDT Aim for breakfast ,lunch and dinner ,no skipped meals. Snacks are OK if truly hungry. If snacks needed, aim for 100 calories, ideally protein and fiber Make breakfast sandwiches to keep in freezer. Think about success 80-90%. Folllow Mediteranean style eating. Consume whole grains (whole grain breads/cereals, oatmeal, barley, popcorn). [id number]+ grams of fiber per day; aim for 25-35 grams fiber per day Consume fresh/frozen fruit and vegetables (blueberries, nectarines, raspberries, apples, apricots, figs, prunes, dark leafy greens) Include a variety of deep colors) Consume lean protein (chicken, turkey breast, fish. Avoid eating red meats more than twice per month if at all. Aim for cheese and meats with 3 grams of fat or less per ounce. Dairy sources primarly low fat/nonfat yogurt and cheese. Use low fat cooking methods such as baking, broiling, roasted, and grilled Use healthy fats such as primarily olive oil, flaxseed oil, walnuts, almonds, pecans, olives and avocado but in limited amounts. Increase foods rich in omega-3 fatty acids (salmon, tuna, nelson, sardines, angel luis) Aim for a small serving daily of Almonds/walnuts and ground flaxseed/juana seeds (2 Tablespoons/day), seeds Read food labels. Avoid products made with partially hydrogenated fats/oils. Include a variety of spices and herbs daily (oregano, nayely, tumeric, marrero, garlic, etc) Aim for at least 30 min cardio most days, if able add weight resistance 2-3 x per week documented in this encounterCenterville08-08-2022 History of Present illness Narrative* Dionna Levin RD - 09/12/2021 7:59 AM EDT Nutrition Therapy Initial Assessment Nutrition Diagnosis: Overweight/obesity, related to, excess energy intake and physical inactivity, as evidenced by BMI above normative standard for age and gender. RECOMMENDED MALNUTRITION DIAGNOSIS: NO MALNUTRITION IDENTIFIED NUTRITION CARE PLAN Nutrition Intervention: Modify type and amount of food consumed for meals and snacks: Aim for breakfast ,lunch and dinner ,no skipped meals. Snacks are OK if truly hungry. If snacks needed, aim for 100 calories, ideally protein and fiber Make breakfast sandwiches to keep in freezer. Think about success 80-90%. Folllow Mediteranean style eating. Consume whole grains (whole grain breads/cereals, oatmeal, barley, popcorn). [id number]+ grams of fiber per day; aim for 25-35 grams fiber per day Consume fresh/frozen fruit and vegetables (blueberries, nectarines, raspberries, apples, apricots, figs, prunes, dark leafy greens) Include a variety of deep colors) Consume lean protein (chicken, turkey breast, fish. Avoid eating red meats more than twice per month if at all. Aim for cheese and meats with 3 grams of fat or less per ounce. Dairy sources primarly low fat/nonfat yogurt and cheese. Use low fat cooking methods such as baking, broiling, roasted, and grilled Use healthy fats such as primarily olive oil, flaxseed oil, walnuts, almonds, pecans, olives and avocado but in limited amounts. Increase foods rich in omega-3 fatty acids (salmon, tuna, nelson, sardines, angel luis) Aim for a small serving daily of Almonds/walnuts and ground flaxseed/juana seeds (2 Tablespoons/day), seeds Read food labels. Avoid products made with partially hydrogenated fats/oils. Include a variety of spices and herbs daily (oregano, nayely, tumeric, marrero, garlic, etc) Aim for at least 30 min cardio most days, if able add weight resistance 2-3 x per week Nutrition Monitoring & Evaluation: 1-2 lbs weight loss per week Need for Follow up: 4-6 weeks Patient presents for initial MNT as relates to class 2 obesity Body mass index is 37.75 kg/m . States had lost 30 lbs after of son but regained with high stress and son's autism diagnosis relates to stress and anxiety. Currently limited time for self but making effort to be healthier, now following weight watchers with some success . Includes juice and water for pina ,has reduced juiceintake, was very high. 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 Resting Metabolic Rate: 1866 Malnutrition Screening Significant unintentional weight loss? No Eating less than 75% of usual intake for more than 2 weeks? No Potential Signs of Inflammation: no identifiable sources Education Materials Provided: None this visit READINESS TO LEARN Cognitive ability: Alert and oriented Motivation to learn: Interested Family support: None - Unavailable/disinterested Instruction provided to: Patient Patient learns best by: Individual Instruction Factors affecting learning: None Physical limitations affecting learning: None Referred/Supervised by: Wei/Andrea MNT Billing Type: Initial Assess/15 min 3 units SIGNATURE: Dionna Levin RD PATIENT NAME: Sasha Rachel DATE: September 12, 2021 TIME: 8:38 AM documented in this encounterCenterville07-01-2022 Instructions* Patient Instructions* Shefali Carvajal APRN.CNS - 08/05/2021 8:33 AM EDT Check with your insurance to see if it will cover Wegovy (semaglutide) documented in this encounterCenterville07-01-2022 History of Present illness Narrative* Shefali Carvajal APRN.CNS - 08/05/2021 8:00 AM EDT SUBJECTIVE: There are no preventive care reminders to display for this patient. DILLON Rachel is a 36 year old female. Has been seen by Dr. Candelaria Blue for depression. Taking Zoloft. Ms. Rachel has noted that her mood seems a little low over the last year. Notes trouble staying asleep, she is awakening around 2:00am after going to bed at 8 pm, her mind is active when this occurs. The pandemic has been difficult. Notes she and her have been vaccinated, has a young child, 2 years old but is not yet. Has been generally avoiding being out in public to decrease risk for him. She notes the life seems to help at current dose. She notes higher dose of Zoloft seems to be too much for her in the past. No voiced SI/HI. Previous noted tailbone and low back pain, seen by Dr. Kirkpatrick. She was referred to pain management byDr. Kirkpatrick. 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 She notes pain is less in hisarea. Has exercise at home, does not consistently do these. Reports considering having another child. Notes difficulty with weight loss and adhering to a healthy diet. No current routine exercise. She presents today for a cough and wheezing present for one month. She was seen in urgent care for COVID in June. Notes chronic cough persisting. She was seen in urgent care in follow-up July 27, 2021 and treated with prednisone, albuterol and benzonatate for post-COVID chronic cough. Chest x-ray was negative on this date. Notes night time wheezing. Improved with recent treatment with prednisone Cough: Intermittent, mostly at night Notes ongoing fatigue and headache. Productive: occasionally SOBOE: with walking fast Chest discomfort: no Pleuritic chest pain: no Orthopnea: no Exertional chest pain: no Peripheral edema: no Palpitations: no Dizziness: no Orthostasis: no Presyncope or syncope: no Asthma history: no She notes some trouble with sleep due to cough. Notes cold medicine seems to help when she takes it. Using albuterol inhaler before bedtime. Notes mood seems low, continues on medication and seeing counselor currently. No voiced SI HI. Notes interested in seeing dietitian, weight loss. Review of Systems Constitutional: Negative. Respiratory: Positive for cough, shortness of breath and wheezing. Psychiatric/Behavioral: Positive for dysphoric mood. Objective BP 118/78 Pulse 75 Temp 36.2 C (97.1 F) Resp 16 Wt 112.9 kg (249 lb) LMP 06/04/2021 SpO2 97% BMI 37.86 kg/m Physical Exam Vitals and nursing note reviewed. Constitutional: Appearance: Normal appearance. HENT: Head: Normocephalic and atraumatic. Eyes: Conjunctiva/sclera: Conjunctivae normal. Neck: Thyroid: No thyromegaly or thyroid tenderness. Cardiovascular: Rate and Rhythm: Normal rate and regular rhythm. Pulses: Carotid pulses are 2+ on the right side and 2+ on the left side. Radial pulses are 2+ on the right side and 2+ on the left side. Heart sounds: Normal heart sounds. Pulmonary: Effort: Pulmonary effort is normal. Breath sounds: Normal breath sounds. Abdominal: General: Bowel sounds are normal. Palpations: Abdomen is soft. Musculoskeletal: Right lower leg: No edema. Left lower leg: No edema. Skin: General: Skin is warm and dry. Neurological: General: No focal deficit present. Mental Status: She is alert and oriented to person, place, and time. ALLERGIES Allergen Reactions Cats Other: See Comments Seasonal Allergies Other: See Comments Medications albuterol HFA (PROAIR HFA) 90 mcg/actuation inhaler Inhale 2 Puffs as instructed every 6 hours as needed. benzonatate (TESSALON PERLES) 100 mg capsule Take 2 capsules by mouth three times daily as needed. norgestimate 0.25 mg-ethinyl estradiol 35 mcg (SPRINTEC) 0.25-35 mg-mcg per tablet Take 1 tablet bymouth once daily. sertraline (ZOLOFT) 100 mg tablet Take 1 tablet by mouth once daily. omeprazole (PRILOSEC) 20 mg capsule Take 1 capsule by mouth once daily. PAST MEDICAL HISTORY Diagnosis Date Abnormal Pap smear of cervix 2004 Allergic rhinitis due to other allergen Depressive disorder, not elsewhere classified Fibromyalgia Food poisoning 2014 Irritable bowel syndrome Myalgia and myositis, unspecified Other chronic sinusitis Social History Tobacco Use Smoking status: Never Smoker Smokeless tobacco: Never Used Vaping Use Vaping Use: Never used Substance Use Topics Alcohol use: Yes Comment: Occasionally, but not while Drug use: No Component Latest Ref Rng & Units 07/01/2020 Protein, Total 6.3 - 8.0 g/dL 5.6 (L) Albumin 3.9 - 4.9 g/dL 4.0 Calcium 8.5 - 10.2 mg/dL 8.7 Bilirubin, Total 0.2 - 1.3 mg/dL 0.4 Alkaline Phosphatase 34 - 123 U/L 65 AST 13 - 35 U/L 16 Glucose 74 - 99 mg/dL 76 BUN 7 - 21 mg/dL 15 Creatinine 0.58 - 0.96 mg/dL 0.68 Sodium 136 - 144 mmol/L 135 (L) Potassium 3.7 - 5.1 mmol/L 4.1 Chloride 97 - 105 mmol/L 103 CO2 22 - 30 mmol/L 22 Anion Gap 9 - 18 mmol/L 10 ALT 7 - 38 U/L 15 eGFR- >60 eGFR-All Other Races . >60 Cholesterol, Total <200 mg/dL 212 (H) Triglyceride <150 mg/dL 85 HDL Cholesterol >39 mg/dL 61 LDL Cholesterol <100 mg/dL 134 (H) Non HDL Cholesterol <130 mg/dL 151 (H) Fasting Time hrs 12 VLDL Cholesterol <30 mg/dL 17 TC:HDL Ratio <5.10 3.48 LDL:HDL Ratio <2.54 2.20 ASSESSMENT/PLAN: ASSESSMENT/PLAN: 1. Post-COVID chronic cough - ICD9: 786.2, 139.8, ICD10: R05.3, U09.9 (primary diagnosis) 2. Fatigue after COVID-19 vaccination - ICD9: 780.79, E949.6, ICD10: R53.83, T50.B95A Recommend continue with supportive care. Consider taking cold medicine with diphenhydramine at bedtime most days to help with sleep. 3. Class 2 obesity with body mass index (BMI) of 37.0 to 37.9 in adult, unspecified obesity type, unspecified whether serious comorbidity present - ICD9: 278.00, V85.37, ICD10: E66.9, Z68.37 - CONSULT TO NUTRITION THERAPY May want to consider semaglutide for weight loss, she will check with her insurance regarding coverage before her next visit If persistent radiographic abnormalities or symptoms at 12 weeks, consider CT of the chest and consult with a educational coordinator. Keep appt in Sep 2021 Shefali Carvajal APRN.CNS Medical Decision Making: Problems: Moderate: Acute illness with systemic symptoms Risk: Moderate: Drug management Medical Decision Making Level: 4 - Moderate documented in this encounterCenterville06-22-2022 History of Present illness Narrative* Susu Garcia PA-C - 07/27/2021 5:16 PM EDT This note was created using [employer]. Subjective Sasha Rachel is a 36 year old female. HPI Patient presents with cough and wheezing since she had covid in June over a month ago. She denies chest pain. She was on augmentin 07/13 for sinusitis which seemed to clear up. She was rx an inhaler in May this year but can't find it currently. She is not a smoker. No hx of asthma. Review of Systems Constitutional: Negative for fatigue and fever. HENT: Negative for congestion. Respiratory: Positive for cough, chest tightness and wheezing. Negative for shortness of breath. Cardiovascular: Negative for chest pain. Gastrointestinal: Negative. Genitourinary: Negative. Musculoskeletal: Negative. PAST MEDICAL HISTORY Diagnosis Date Abnormal Pap smear of cervix 2004 Allergic rhinitis due to other allergen Depressive disorder, not elsewhere classified Fibromyalgia Food poisoning 2014 Irritable bowel syndrome Myalgia and myositis, unspecified Other chronic sinusitis Current Outpatient Medications Medication Sig Dispense Refill norgestimate 0.25 mg-ethinyl estradiol 35 mcg (SPRINTEC) 0.25-35 mg-mcg per tablet Take 1 tablet bymouth once daily. 84 tablet 3 sertraline (ZOLOFT) 100 mg tablet Take 1 tablet by mouth once daily. 90 tablet 3 predniSONE (DELTASONE) 20 mg tablet Take 2 tablets by mouth once daily for 5 days. 10 tablet 0 albuterol HFA (PROAIR HFA) 90 mcg/actuation inhaler Inhale 2 Puffs as instructed every 6 hours as needed. 1 Inhaler 0 benzonatate (TESSALON PERLES) 100 mg capsule Take 2 capsules by mouth three times daily as needed. 30 capsule 0 azelastine (ASTELIN, ASTEPRO) 0.1% nasal spray Use 1 [place] in each nostril twice daily. (Patient not taking: Reported on 07/27/2021 ) 30 mL 0 benzonatate (TESSALON PERLES) 100 mg capsule Take 2 capsules by mouth three times daily as needed. (Patient not taking: Reported on 07/27/2021 ) 30 capsule 0 albuterol HFA (PROAIR HFA) 90 mcg/actuation inhaler Inhale 2 Puffs as instructed every 6 hours as needed. (Patient not taking: Reported on 07/27/2021 ) 1 Inhaler 0 omeprazole (PRILOSEC) 20 mg capsule Take 1 capsule by mouth once daily. 30 capsule 0 ondansetron orally disintegrating (ZOFRAN ODT) 4 mg disintegrating tablet Take 1-2 tablets by mouthevery 8 hours as needed for nausea/vomiting. (Patient not taking: Reported on 05/29/2021 ) 20 tablet 0 Nsbqdkkg-Fa-Nec-Fe-FA ( VITAMIN) tab Take 1 tablet by mouth. (Patient not taking: Reported on 06/24/2021 ) No current facility-administered medications for this visit. PAST SURGICAL HISTORY Procedure Laterality Date HYSTEROSCOPY BX ENDOMETRIUM&/POLYPC W/WO D&C 09/18/2019 hysteroscopy D&C for AUP TONSILLECTOMY & ADENOIDECTOMY AGE 12/> 1996 FAMILY HISTORY Problem Relation Age of Onset Breast Cancer Mother other (hypercholesterolemia) Mother diet controlled Parkinson s Disease Father Prostate Cancer Father No Known Problems Sister Heart Maternal Grandmother Psychiatry Maternal Grandfather Hypertension Paternal Grandmother Heart Paternal Grandmother Heart Paternal Grandfather Autism Son Social History Tobacco Use Smoking status: Never Smoker Smokeless tobacco: Never Used Vaping Use Vaping Use: Never used Substance Use Topics Alcohol use: Yes Comment: Occasionally, but not while Drug use: No Objective BP 110/78 Pulse 76 Temp 36.7 C (98 F) (Tympanic) Resp 18 Wt 112.3 kg (247 lb 9.6 oz) LMP 06/04/2021 SpO2 98% BMI 37.65 kg/m Physical Exam Vitals reviewed. Constitutional: Appearance: Normal appearance. HENT: Head: Normocephalic and atraumatic. Right Ear: Tympanic membrane, ear canal and external ear normal. Left Ear: Tympanic membrane, ear canal and external ear normal. Nose: Nose normal. Mouth/Throat: Mouth: Mucous membranes are moist. Pharynx: Oropharynx is clear. Cardiovascular: Rate and Rhythm: Normal rate and regular rhythm. Heart sounds: Normal heart sounds. Pulmonary: Effort: Pulmonary effort is normal. Breath sounds: Wheezing present. Comments: Mild expiratory wheeze in the lower lung wilkinson Musculoskeletal: Cervical back: Neck supple. Lymphadenopathy: Cervical: No cervical adenopathy. Skin: General: Skin is warm and dry. Findings: No rash. Neurological: General: No focal deficit present. Mental Status: She is alert and oriented to person, place, and time. Assessment and Plan ASSESSMENT/PLAN: 1. Post-COVID chronic cough - ICD9: 786.2, 139.8, ICD10: R05.3, U09.9 Chest xray negative. Will tx with prednisone, tessalon and albuterol mdi. If not improving followupwith pcp. - XR CHEST 2V FRONTAL/LAT Susu Garcia PA-C documented in this encounterCenterville06-22-2022 History of Present illness Narrative* Jagruti Corbin RT(R) - 07/27/2021 3:50 PM EDT Radiology Service Progress Note PATIENT NAME: Sasha Rachel DATE OF SERVICE: July 27, 2021 TIME: 3:43 PM PATIENT IDENTITY VERIFICATION COMPLETED USING TWO (2) IDENTIFIERS: Name and Date of confirmedby patient verbally. FALL SCREENING: Has the patient had 2 falls in the last year or 1 fall with injury or currently using an Ambulatory Assistive Device (Walker, Cane, Wheelchair, Crutches, etc.)? No PATIENT GENDER DATA: Female. status: : No status: NO. PATIENT RELEVANT IMPLANT DATA REVIEWED: Not Applicable RADIOLOGY DEPARTMENT: General X-ray: Exam(s) Completed: Chest X-Ray PERIPHERAL IV DATA: Not applicable SIGNED BY: RT Rodríguez(R) July 27, 2021 3:43 PM documented in this encounterCenterville06-22-2022 Miscellaneous Notes* Telephone Encounter - Thi Young RN - 07/27/2021 2:47 PM EDT Patient calling to let PCP know she has a persistent cough with intermittent wheezing at night thatwakes her out of her sleep. She says she tested positive for COVID three weeks ago and she expectedthe cough to be improving by now. She has occasional yellowish phlegm. She says she is also still very fatigued. Offered appointment with Shefali tomorrow. She decided to be seen in Urgent Care today. hTi Young RN documented in this encounterCenterville05-26-2022 History of Present illness Narrative* Pat Bhatt APRN.CNP - 06/30/2021 10:48 AM EDT Attempted to connect and patient was no longer in virtual waiting room. Pat Bhatt APRN.HERSON documented in this [facility]05-26-2022 Instructions* Patient Instructions* Manjit Flores APRN.CNP - 06/30/2021 10:43 AM EDT Beginning Home Isolation Isolation is used to separate people infected with SARS-CoV-2, the virus that causes COVID-19, frompeople who are not infected. People who are in isolation should stay home until it s safe for them to be around others. In the home, anyone sick or infected should separate themselves from others by staying in a specific sick room or area and using a separate bathroom (if available). Isolation or Quarantine: What's the difference? Quarantine keeps someone who might have been exposed to the virus away from others. Isolation keeps someone who is infected with the virus away from others, even in their home. Who needs to isolate People who have COVID-19 People who have symptoms of COVID-19 and are able to recover at home People who have no symptoms (are asymptomatic) but have tested positive for infection with SARS-CoV-2 Steps to take Stay home except to get medical care Monitor your symptoms. Stay in a separate room from other household members, if possible Use a separate bathroom, if possible Avoid contact with other members of the household and pets Don t share personal household items, like cups, towels, and utensils Wear a mask when around other people, if you are able to When to seek emergency medical attention Look for emergency warning signs* for COVID-19. If someone is showing any of these signs, seek emergency medical care immediately: Trouble breathing Persistent pain or pressure in the chest New confusion Inability to wake or stay awake Bluish lips or face *This list is not all possible symptoms. Please call your medical provider for any other symptoms that are severe or concerning to you. Call 911 or call ahead to your local emergency facility: Notify the potato chip sacking machine operator that you are seeking care for someone who has or may have COVID-19. Ending Home Isolation - When you can be around others after you had or likely had COVID-19 When you can be around others after you had or likely had COVID-19 If You Test Positive for COVID-19 (Isolation) Everyone, regardless of vaccination status: 1. Stay home for 5 days. Note: Day 0 is your first day of symptoms or the date of collection of a positive viral test if no symptoms. Day 1 is the first full day after symptoms developed or test specimen was collected. 2. If you have no symptoms or your symptoms are resolving after 5 days, you can leave your house. 3. Continue to wear a mask around others for 5 additional days. If you have a fever, continue to stay home until your fever resolves, even if it is longer than 5 days. If You Were Exposed to Someone with COVID-19 (Quarantine) If you: 1. Have been boosted OR 2. Completed the primary series of Pfizer or Moderna vaccine within the last 6 months OR 3. Completed the primary series of J&J vaccine within the last 2 months THEN: 1. Wear a mask around others for 10 days. 2. Test on day 5, if possible. If you develop symptoms get a test and stay home. If You Were Exposed to Someone with COVID-19 (Quarantine) If you: 1. Completed the primary series of Pfizer or Moderna vaccine over 6 months ago and are not boosted OR 2. Completed the primary series of J&J over 2 months ago and are not boosted OR 3. Are unvaccinated THEN: 1. Stay home for 5 days. After that continue to wear a mask around others for 5 additional days. 2. If you can't quarantine you must wear a mask for 10 days. 3. Test on day 5 if possible. If you develop symptoms get a test and stay home. I had COVID-19 or I tested positive for COVID-19 and I have a weakened immune system If you have a weakened immune system (immunocompromised) due to a health condition or medication, you might need to stay home and isolate longer than 10 days. Talk to your healthcare provider for more information. Your doctor may work with an infectious disease expert at your local health department to determinewhen you can be around others. documented in this encounterCenterville05-26-2022 History of Present illness Narrative* Manjit Flores APRN.CNP - 06/30/2021 10:22 AM EDT Telemedicine Follow-up for COVID-19 Infection Alternative video platform was used for evaluation of this patient. Location of patient: [place] Rachel is a 36 year old female who was diagnosed with COVID-19 on 06/24/2021 with symptoms starting on 06/23/21 Since diagnosis, symptoms are stable. Patient does have a history of seasonal allergies; not currently taking any daily allergy medication(s). Persistent symptoms include: Fever (?100.4F): No or Chills: No Cough: Yes - worsens at night time; reports she is wheezing at night. Uses albuterol inhaler, whichprovides relief. Shortness of breath: No or Difficulty breathing: No Fatigue: Yes Muscle aches: No Headache: No Loss of smell or taste: No Sore throat: No Nasal congestion: Yes or Rhinorrhea: Yes - slightly worsening over the past 5 days Nausea: No or Vomiting: No Diarrhea: No OTC meds/remedies that patient has tried: albuterol inhaler, benzonatate, OTC cold medications, saline nose spray, humidifier She reports that she has never smoked. She has never used smokeless tobacco. OBJECTIVE VIDEO EXAM (if available) GENERAL: well appearing, alert, in no acute distress HEENT Eyes: Sclera clear :Yes Conjunctiva without erythema :Yes Ears: Tragus / outer ear tenderness by self palpation :reports increased pressure to left ear with manipulation of lobe Oropharynx: moist mucus membranes, no tonsillar hypertrophy/exudate, uvula midline and pharynx non-erythematous, lips, teeth and gums are without obvious lesion and +PND noted Frontal sinus tenderness by self palpation;No Maxillary sinus tenderness by self palpation :mild discomfort to right maxillary sinus Tender cervical adenopathy by self palpation :No PULMONARY: breathing comfortably on room air , no coughing noted and no wheezing noted ASSESSMENT/PLAN (U07.1) COVID-19 virus infection (primary encounter diagnosis) (R09.82) Post-nasal drainage - Overall symptoms are improving - Suspect current symptoms r/t seasonal allergic rhinitis - Will trial azelastine nasal spray - Continue with saline nasal spray - Humidifier at night time - Continue with albuterol, benzonatate PRN - Symptoms stable or improving, continue self monitoring - Discussed if nasal symptoms improve with azelastine, can end isolation; discussed wearing mask inpublic / around others - Discussed post-viral cough can linger - Discussed symptom monitoring and supportive care - Red flag symptoms requiring follow up discussed This patient encounter involved the screening or treatment of novel coronavirus infection (COVID-19). documented in this encounterCenterville05-26-2022 History of Present illness Narrative* Manjit Flores APRN.CNP - 06/30/2021 10:18 AM EDT Images from the original note were not included. Pt cancelled appointment and/or transferred to another provider prior to attempted connection. documented in this encounterCenterville05-26-2022 History of Present illness Narrative* Manjit Flores APRN.HERSON - 06/30/2021 10:11 AM EDT Images from the original note were not included. Pt cancelled appointment and/or transferred to another provider prior to attempted connection. documented in this encounterCenterville05-21-2022 Miscellaneous Notes* Telephone Encounter - Soraida Shen RN - 06/25/2021 9:49 AM EDT Pts called in and reports that when he looks at his 's Covid test in MyChart it days that it wasn't detected. I told him 2 months ago it says not detected, but 1 day ago it days detected in bright red and yellow letter. He said they went grocery shopping because he says to him it looks like she wasn't positive. The provider contacted the this morning at 0933 am to tell them she wasCovid positive, and he wanted me to let her know she read it wrong. I told him they needed to follow the Covid isolation rules. doctor left them full note with rules and when to go to ER. documented in this encounterCenterville05-20-2022 History of Present illness Narrative* Yi Barajas APRN.HERSON - 06/24/2021 5:07 PM EDT Subjective HPI Sahsa Rachel is a 36 year old female who presents with covid symptoms of cough, body aches. She attended a conference in [place] last week and developed symptoms the night she returned home. Shehas not taken any medication for her symptoms. Review of Systems Constitutional: Positive for fever. Respiratory: Positive for cough. Cardiovascular: Negative. Gastrointestinal: Negative for diarrhea, nausea and vomiting. Musculoskeletal: Positive for myalgias. Skin: Negative. Neurological: Negative for headaches. BP 124/74 Pulse 98 Temp 37.9 C (100.2 F) (Tympanic) Resp 18 Wt 111.8 kg (246 lb 6.4 oz) LMP 06/04/2021 SpO2 98% BMI 37.46 kg/m PAST MEDICAL HISTORY Diagnosis Date Abnormal Pap smear of cervix 2004 Allergic rhinitis due to other allergen Depressive disorder, not elsewhere classified Fibromyalgia Food poisoning 2014 Irritable bowel syndrome Myalgia and myositis, unspecified Other chronic sinusitis PAST SURGICAL HISTORY Procedure Laterality Date HYSTEROSCOPY BX ENDOMETRIUM&/POLYPC W/WO D&C 09/18/2019 hysteroscopy D&C for AUP TONSILLECTOMY & ADENOIDECTOMY AGE 12/> 1996 ALLERGIES Cats and Seasonal Allergies MEDICATIONS albuterol HFA (PROAIR HFA) 90 mcg/actuation inhaler Inhale 2 Puffs as instructed every 6 hours as needed. norgestimate 0.25 mg-ethinyl estradiol 35 mcg (SPRINTEC) 0.25-35 mg-mcg per tablet Take 1 tablet bymouth once daily. sertraline (ZOLOFT) 100 mg tablet Take 1 tablet by mouth once daily. benzonatate (TESSALON PERLES) 100 mg capsule Take 2 capsules by mouth three times daily as needed. lidocaine viscous (LIDOCAINE VISCOUS) 2 % solution Take 10 mL by mouth every 4 hours as needed for pain. methylPREDNISolone (MEDROL, ASHLEY,) 4 mg Dose-Pack As instructed per package omeprazole (PRILOSEC) 20 mg capsule Take 1 capsule by mouth once daily. ondansetron orally disintegrating (ZOFRAN ODT) 4 mg disintegrating tablet Take 1-2 tablets by mouthevery 8 hours as needed for nausea/vomiting. Czpejkma-Jd-Jsb-Fe-FA ( VITAMIN) tab Take 1 tablet by mouth. FAMILY HISTORY Problem Relation Age of Onset Breast Cancer Mother other (hypercholesterolemia) Mother diet controlled Parkinson s Disease Father Prostate Cancer Father No Known Problems Sister Heart Maternal Grandmother Psychiatry Maternal Grandfather Hypertension Paternal Grandmother Heart Paternal Grandmother Heart Paternal Grandfather Autism Son Social History Tobacco Use Smoking status: Never Smoker Smokeless tobacco: Never Used Vaping Use Vaping Use: Never used Substance Use Topics Alcohol use: Yes Comment: Occasionally, but not while Drug use: No Objective Physical Exam Vitals and nursing note reviewed. Constitutional: Appearance: She is obese. Cardiovascular: Rate and Rhythm: Normal rate and regular rhythm. Heart sounds: Normal heart sounds. Pulmonary: Effort: Pulmonary effort is normal. No respiratory distress. Breath sounds: Normal breath sounds. No wheezing or rales. Skin: General: Skin is warm and dry. Findings: No erythema or rash. Neurological: Mental Status: She is alert. ASSESSMENT/PLAN: 1. Suspected COVID-19 virus infection - ICD9: V01.79, ICD10: Z20.822 - COVID WITH FLUA+B, ROUTINE - BENZONATATE 100 MG CAPSULE - Follow-up with your PCP in 3-5 days if symptoms have not improved or sooner if symptoms worsen - Discussed red flags and need for immediate medical evaluation if any occur. - Discussed supportive care treatment with fluids, rest and analgesia. - Discussed expected course of illness Yi Barajas APRN.CNP documented in this encounterCent[place]05-20-2022 Instructions* Patient Instructions* Yi Barajas APRN.CNP - 06/24/2021 5:03 PM EDT ASSESSMENT/PLAN: 1. Suspected COVID-19 virus infection - ICD9: V01.79, ICD10: Z20.822 - COVID WITH FLUA+B, ROUTINE - BENZONATATE 100 MG CAPSULE - Follow-up with your PCP in 3-5 days if symptoms have not improved or sooner if symptoms worsen - Discussed red flags and need for immediate medical evaluation if any occur. - Discussed supportive care treatment with fluids, rest and analgesia. - Discussed expected course of illness Yi Barajas APRN.CNP How to Manage Common Symptoms Associated with COVID for Adults Fever- Fever is a temperature over 100.4 F and can occur when the body is fighting an infection. Tohelp treat a fever: Drink plenty of fluids and stay well hydrated. Eat small amounts of easy to digest food. Rest. Your body needs rest to recover, but getting up and moving around the house frequently is a good idea. You should try to continue doing your normal daily activities (bathing, toileting, grooming, cooking), though you will probably feel tired, and need to rest often. Avoid any heavy activity or exercise, as this will increase your body temperature. Dress in light clothing and stay covered in a light sheet. Keep the room temperature cool. Take a slightly warm (not cold or cool) bath, or apply damp washcloths to the forehead and wrists. Cough- Cough is a common symptom associated with COVID and can be bothersome. To help treat a cough: Stay well hydrated. Try warm water or tea with lemon and/or honey to help soothe the cough. Use a humidifier to add moisture to the air. Try a product with menthol, like a cough drop or a rub for your chest such as Vicks, which can helpreduce cough. Try cough drops. Avoid smoking and other strong odors or perfumes. Try breathing exercises to keep your lungs open and clear. Take a big deep breath through your noseand hold for 5 seconds before slowly releasing. Repeat frequently, while you are awake. Congestion- Runny nose or nasal congestion can occur with COVID. Treatment can help relieve symptoms: Try OTC nasal saline spray, or nasal saline rinse to relieve mucus congestion. Nasal strips can help keep nasal passages open, to increase airflow. Elevating your head with an extra pillow in bed can help reduce congestion. Using a humidifier can increase moisture in the air, and make breathing easier. Sore Throat- Another common symptom with COVID, can be managed at home by: Stay well hydrated. Gargle with salt water mix teaspoon salt with 1 cup of warm water and gargle. This helps to loosen mucus in the back of the throat and may reduce discomfort. Try ice chips, popsicles or lozenges to soothe the throat. Nausea/Vomiting/Diarrhea- These are common symptoms, and staying hydrated is most important. If you are nauseous or vomiting, start with small sips of water every 10-15 minutes and increase astolerated. You can try sucking an ice cube too. If tolerating, you can try pedialyte or Gatorade, or flat sprite or terry-rosario. Start slowly and increase as you are able to. Instead of meals, try smaller, more frequent snacks. Try eating bland foods like crackers, toast, rice, and applesauce. Avoid spicy, greasy or fried foods and dairy containing foods. Even if you aren't feeling hungry due to lack of smell or taste, it is important to try to take in some food when you are able. After drinking and eating, rest in an upright position for up to two hours as needed to help decrease nauseous feelings. Try closing your eyes, avoid moving and watching TV. Avoid strong odors that can make you feel more nauseated. When to seek emergency medical attention Look for emergency warning signs for COVID-19. If having any of these symptoms, seek emergency medical care immediately: Trouble breathing Persistent pain or pressure in the chest New confusion Inability to wake or stay awake Bluish lips or face *This list is not all possible symptoms. Please call your medical provider for any other symptoms that are severe or concerning to you. documented in this encounterCent[place]05-09-2022 Miscellaneous Notes* Telephone Encounter - Shefali Carvajal APRN.CNS - 06/13/2021 12:38 PM EDT labs completed 04/26. order cmp, lipids * Telephone Encounter - Haylie Monge - 06/10/2021 5:19 PM EDT Pt coming in September for physical. Please place any lab orders if needed so she can get them done inadvance of visit. documented in this encounterCenterville05-06-2022 History of Present illness Narrative* Jackie Mcgarry APRN.CNP - 06/10/2021 2:57 PM EDT Sasha Rachel is a 36 year old female who presents for problem visit Lump on the labia for 3 days. HPI: pt states that she notice the lump when she was wiping the other day. Denies any pain or drainage from the area. She just wanted to get it looked at. 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 History Comments: Sexual Activity: Yes; Male Contraception: Pill PAST MEDICAL HISTORY Diagnosis Date Abnormal Pap smear of cervix 2004 Allergic rhinitis due to other allergen Depressive disorder, not elsewhere classified Fibromyalgia Food poisoning 2014 Irritable bowel syndrome Myalgia and myositis, unspecified Other chronic sinusitis PAST SURGICAL HISTORY Procedure Laterality Date HYSTEROSCOPY BX ENDOMETRIUM&/POLYPC W/WO D&C 09/18/2019 hysteroscopy D&C for AUP TONSILLECTOMY & ADENOIDECTOMY AGE 12/> 1996 FAMILY HISTORY Problem Relation Age of Onset Breast Cancer Mother other (hypercholesterolemia) Mother diet controlled Parkinson s Disease Father Prostate Cancer Father No Known Problems Sister Heart Maternal Grandmother Psychiatry Maternal Grandfather Hypertension Paternal Grandmother Heart Paternal Grandmother Heart Paternal Grandfather Autism Son Social History Tobacco Use Smoking status: Never Smoker Smokeless tobacco: Never Used Vaping Use Vaping Use: Never used Substance Use Topics Alcohol use: Yes Comment: Occasionally, but not while Drug use: No Current Outpatient Medications Medication Sig albuterol HFA (PROAIR HFA) 90 mcg/actuation inhaler Inhale 2 Puffs as instructed every 6 hours as needed. norgestimate 0.25 mg-ethinyl estradiol 35 mcg (SPRINTEC) 0.25-35 mg-mcg per tablet Take 1 tablet bymouth once daily. benzonatate (TESSALON PERLES) 100 mg capsule Take 2 capsules by mouth three times daily as needed. (Patient not taking: Reported on 06/10/2021 ) lidocaine viscous (LIDOCAINE VISCOUS) 2 % solution Take 10 mL by mouth every 4 hours as needed for pain. (Patient not taking: Reported on 06/10/2021 ) methylPREDNISolone (MEDROL, ASHLEY,) 4 mg Dose-Pack As instructed per package (Patient not taking: Reported on 05/29/2021 ) omeprazole (PRILOSEC) 20 mg capsule Take 1 capsule by mouth once daily. ondansetron orally disintegrating (ZOFRAN ODT) 4 mg disintegrating tablet Take 1-2 tablets by mouthevery 8 hours as needed for nausea/vomiting. (Patient not taking: Reported on 05/29/2021 ) sertraline (ZOLOFT) 100 mg tablet Take 1 tablet by mouth once daily. Ynhawxnu-Yw-Rdw-Fe-FA ( VITAMIN) tab Take 1 tablet by mouth. No current facility-administered medications for this visit. Allergies As of Date: 06/10/2021 Allergen Noted Reaction CATS 08/03/2018 Other: See Comments SEASONAL ALLERGIES 07/02/2020 Other: See Comments Fully Assessed 06/10/2021 REVIEW OF SYSTEMS Expanded ROS: N/A Allergies and current medication updated:Yes EXAM: Wt 246 lb 3.2 oz (111.7kg) LMP 06/04/2021 GENERAL: pleasant, female in no apparent distress HEENT: Normocephalic, atraumatic, mucus membranes moist and no lesions CHEST: Normal inspiratory effort PELVIC: external genitalia normal, normal Bartholin's glands, urethra, [place]'s glands, no vulvar lesions, physiologic discharge present, normal appearing perineal body and perianal region, B/L small labia occulusion cyst NEURO: alert and oriented x3,exam grossly non-focal EXTREMITIES: normal ASSESSMENT/PLAN: 1. Labial cyst - ICD9: 624.8, ICD10: N90.7 - No need for any treatment at this point, if cyst become larger return to office for evaluation. Jackie Mcgarry APRN.CNP Medical Decision Making: Problems: Low: Acute, uncomplicated illness or injury Risk: Low: Low risk from testing/treatment Medical Decision Making Level: 3 - Low ' documented in this encounterCent[place]05-02-2022 Miscellaneous Notes* Telephone Encounter - Jagruti Mcknight RN - 06/06/2021 3:28 PM EDT Patient states the bleeding has slowed down since she called. Instructions to call back if bleedinghas not slowed even more by Sunday AM * Telephone Encounter - Jackie Mcgarry APRN.CNP - 06/06/2021 12:36 PM EDT Yes, the bleeding is probably heavier due to the prednisone and skipping a week of pills. The bleeding should slow and stop within the next few days of being back on the pills. If it does not stop byFriday, let me know and I will order an additional medication to help stop the bleeding. Jackie Mcgarry APRN.HERSON * Telephone Encounter - Haylie Davis RN - 06/06/2021 11:01 AM EDT Patient has been on two rounds of Prednisone for a upper respiratory infection. Asking if Prednisone can cause heavy AUB. LMP 05/27. Menses lasted 5-7 days. On Sunday and Sunday she developed heavy bleeding. Needed to wear a Depends pad. Passing blood clots larger than the size of a quarter. No cramping or pain. No heavy bleeding today. She only has light spotting. Inquired if she missed or skipped any of her OCP. States she missed one week because she felt so sick. Started a new pack of pillsyesterday. Wondering if this is why her bleeding slowed. States she was not sexually active after missing one week of pills. Haylie Davis RN documented in this encounterCenterville04-24-2022 History of Present illness Narrative* Susu Garcia PA-C - 05/29/2021 12:42 PM EDT This note was created using [employer]. Subjective Sasha Rachel is a 36 year old female. HPI Patient presents with cough over the past 4 weeks. She states she was on Medrol Dosepak on the which did seem to improve the cough but now that she is off of it has come back. She denies historyof asthma. She had been treated with Augmentin as well as doxycycline for possible sinusitis. That part has improved. No chest pain or shortness of breath. No vomiting or diarrhea. She is not a smoker. She has tested negative for covid19. Review of Systems Constitutional: Negative. HENT: Positive for postnasal drip and sore throat. Negative for sinus pressure and sinus pain. Respiratory: Positive for cough. Negative for chest tightness, shortness of breath and wheezing. Cardiovascular: Negative. Gastrointestinal: Negative. Genitourinary: Negative. Musculoskeletal: Negative. All other systems reviewed and are negative. PAST MEDICAL HISTORY Diagnosis Date Abnormal Pap smear of cervix 2004 Allergic rhinitis due to other allergen Depressive disorder, not elsewhere classified Fibromyalgia Food poisoning 2014 Irritable bowel syndrome Myalgia and myositis, unspecified Other chronic sinusitis Current Outpatient Medications Medication Sig Dispense Refill doxycycline monohydrate (MONODOX) 100 mg capsule Take 1 capsule by mouth twice daily for 7 days. 14capsule 0 norgestimate 0.25 mg-ethinyl estradiol 35 mcg (SPRINTEC) 0.25-35 mg-mcg per tablet Take 1 tablet bymouth once daily. 84 tablet 3 sertraline (ZOLOFT) 100 mg tablet Take 1 tablet by mouth once daily. 90 tablet 3 Kzrhmdej-Kr-Vrk-Fe-FA ( VITAMIN) tab Take 1 tablet by mouth. predniSONE (DELTASONE) 10 mg tablet Take 4 tabs daily for 3 days, then 2 tabs daily for 3 days, then 1 tab daily for 3 days with food. 21 tablet 0 benzonatate (TESSALON PERLES) 100 mg capsule Take 2 capsules by mouth three times daily as needed. 30 capsule 0 albuterol HFA (PROAIR HFA) 90 mcg/actuation inhaler Inhale 2 Puffs as instructed every 6 hours as needed. 1 Inhaler 0 lidocaine viscous (LIDOCAINE VISCOUS) 2 % solution Take 10 mL by mouth every 4 hours as needed for pain. 100 mL 0 methylPREDNISolone (MEDROL, ASHLEY,) 4 mg Dose-Pack As instructed per package (Patient not taking: Reported on 05/29/2021 ) 1 Package 0 omeprazole (PRILOSEC) 20 mg capsule Take 1 capsule by mouth once daily. 30 capsule 0 ondansetron orally disintegrating (ZOFRAN ODT) 4 mg disintegrating tablet Take 1-2 tablets by mouthevery 8 hours as needed for nausea/vomiting. (Patient not taking: Reported on 05/29/2021 ) 20 tablet 0 No current facility-administered medications for this visit. PAST SURGICAL HISTORY Procedure Laterality Date HYSTEROSCOPY BX ENDOMETRIUM&/POLYPC W/WO D&C 09/18/2019 hysteroscopy D&C for AUP TONSILLECTOMY & ADENOIDECTOMY AGE 12/> 1996 FAMILY HISTORY Problem Relation Age of Onset Breast Cancer Mother other (hypercholesterolemia) Mother diet controlled Parkinson s Disease Father Prostate Cancer Father No Known Problems Sister Heart Maternal Grandmother Psychiatry Maternal Grandfather Hypertension Paternal Grandmother Heart Paternal Grandmother Heart Paternal Grandfather Autism Son Social History Tobacco Use Smoking status: Never Smoker Smokeless tobacco: Never Used Vaping Use Vaping Use: Never used Substance Use Topics Alcohol use: Yes Comment: Occasionally, but not while Drug use: No Objective BP 112/62 Pulse 91 Temp 36.4 C (97.5 F) (Tympanic) Resp 18 Wt 109.6 kg (241 lb 9.6 oz) LMP 04/12/2021 SpO2 99% BMI 36.74 kg/m Physical Exam Vitals reviewed. Constitutional: Appearance: Normal appearance. HENT: Head: Normocephalic and atraumatic. Right Ear: Tympanic membrane, ear canal and external ear normal. Left Ear: Tympanic membrane, ear canal and external ear normal. Nose: Congestion present. Mouth/Throat: Mouth: Mucous membranes are moist. Pharynx: Oropharynx is clear. Cardiovascular: Rate and Rhythm: Normal rate and regular rhythm. Heart sounds: Normal heart sounds. Pulmonary: Effort: Pulmonary effort is normal. Breath sounds: Normal breath sounds. Comments: Harsh wheezy cough noted Musculoskeletal: Cervical back: Neck supple. Skin: General: Skin is warm and dry. Neurological: General: No focal deficit present. Mental Status: She is alert and oriented to person, place, and time. Assessment and Plan ASSESSMENT/PLAN: 1. Bronchitis - ICD9: 490, ICD10: J40 Likely post viral cough. Will do another round of prednisone. xr closed for today, low suspicion for pneumonia, she will have this done if not improving. Vitals normal here. Given albuterol mdi and tessalon script as well. Follow up with pcp. - PREDNISONE 10 MG TABLET - BENZONATATE 100 MG CAPSULE - ALBUTEROL SULFATE HFA 90 MCG/ACTUATION AEROSOL INHALER - XR CHEST 2V FRONTAL/LAT Susu Garcia PA-C documented in this encounterCenterville04-18-2022 Instructions* Patient Instructions* Manjit Flores APRN.[facility] - 05/23/2021 8:36 AM EDT PLEASE PROCEED TO THE NEAREST ED IF DEVELOPING: Any abrupt change in illness/condition or concerning symptoms such as: lethargy, signs of dehydration, fever greater than 102F which is not responding to Tylenol or ibuprofen (Motrin, Advil), drooling, difficulty swallowing, difficulty breathing, shortness of breath, chest pain, evidence of airway c ompromise (tripod position, neck extension, retractions), seizures, changes in mental status, or other concerns report to the nearest Emergency Department. EXPRESS CARE PATIENT INFO PHARYNGITIS OVERVIEW A sore throat (pharyngitis) is a common problem, and usually is caused by a viral or bacterial infection. Sore throat usually resolves on its own without complications in adults, although it is important to know when to seek medical attention. Viruses can cause a sore throat and other upper respiratory infections, such as the common cold. Sore throat caused by a virus is not treated with antibiotics, but instead may be treated with rest, pain medication, and other therapies aimed at relieving symptoms. Strep throat is a particular kind of pharyngitis that is caused by a bacterium known as group A streptococcus (GAS). Strep throat is treated with a course of antibiotics. SORE THROAT SYMPTOMS Viral pharyngitis Most people with a sore throat have a virus. The most common viruses are those that cause upper respiratory infections, such as the common cold. Symptoms of a viral infection can include: A runny or congested nose Irritation or redness of the eyes Cough, hoarseness, or soreness in the roof of the mouth Some viruses cause a fever and can make you feel quite ill. Strep throat Approximately 10 percent of adults with a sore throat have strep throat. Signs and symptoms of strep throat include the following: Pain in the throat Fever (temperature greater than 100.4 F or 38 C) Enlarged lymph glands in the neck White patches of pus on the side or back of the throat No cough, runny nose, or irritation/redness of the eyes Other infections Many other less common but more serious infections can cause a sore throat, including mononucleosis (mono), influenza (the flu), N. gonococcus (gonorrhea), human immunodeficiency virus (HIV), and others. When to seek urgent help See your doctor or nurse immediately if you have a sore throat along with any of the following: Difficulty breathing Skin rash Drooling because you cannot swallow Swelling of the neck or tongue Stiff neck or difficulty opening the mouth SORE THROAT DIAGNOSIS Most people with a sore throat get better without treatment. There is no specific treatment for a sore throat caused by usual cold viruses. Is it strep or not? A combination of symptoms (fever, enlarged glands in the neck, white patches onyour tonsils, and no cough) can help in determining if you have strep. If you have two or more symptoms, a rapid test or throat culture may be done. People with fewer than two symptoms usually do notneed testing or treatment for strep throat. Rapid test The rapid test determines if there are streptococcus bacteria on a throat swab. The testcan be done in a clinician's office and the results are available within a few minutes. The test isaccurate in most cases, although a small percentage of tests are falsely negative (the bacteria arepresent but the test is negative). Throat culture A throat culture involves swabbing the throat, sending the swab to a laboratory, andwaiting 24 to 48 hours for the results. Throat cultures are slightly more accurate than the rapid test. TREATMENT OF SORE THROAT Sore throat treatment Antibiotics do not help throat pain caused by a virus and are not recommended. Sore throat caused by viral infections usually lasts four to five days. During this time, treatments to reduce pain may be helpful. Several therapies can help to relieve throat pain. Pain medication You can treat your throat pain with a mild pain reliever such as acetaminophen (Tylenol ) or a non-steroidal anti-inflammatory agent such as ibuprofen or naproxen (Motrin or Aleve ). Oral rinses Salt-water gargles are an old stand-by for throat pain. It is not clear that salt waterworks to relieve pain, but it is unlikely to be harmful. Most recipes suggest 1/4 to 1/2 teaspoon of salt per one cup (8 ounces) of warm water. Sprays Sprays containing topical anesthetics (eg, benzocaine, phenol) are available to treat sore throat. However, such sprays are no more effective than sucking on hard candy. Lozenges A variety of lozenges (cough drops) are available to treat throat pain or relieve dryness.However, it is not clear that lozenges work any better than other forms of hard candy, which are generally less expensive. Other treatments Other treatments that may help with throat pain include sipping warm beverages (eg, honey or lemon tea, chicken soup), cold beverages, or eating cold or frozen desserts (eg, ice cream, popsicles). Alternative therapies Health food stores, vitamin outlets, and Internet Web sites offer alternativetreatments for relief of sore throat pain. We do not recommend these type of treatments due to the risks of contamination with pesticides/herbicides, inaccurate labeling and dosing information, and alack of studies showing that these treatments are safe and effective. Strep throat Although strep throat typically resolves on its own within two to five days, treatmentwith antibiotics is recommended for adults whose rapid test or throat culture is positive for strepthroat. Penicillin, or an antibiotic related to penicillin, is the treatment of choice for strep throat. Itis usually given in pill or liquid form two to four times per day for 10 days. A one time injectionof penicillin is also available. People who are allergic to penicillin are given an alternate antibiotic. It is important to finish the entire course of treatment to completely eliminate the infection. If symptoms do not begin to improve or worsen by three days of antibiotic treatment, you should seeyour doctor or nurse again. Return to work/school If you have been diagnosed with strep throat, stay home from work or school until you have completed 24 hours of antibiotics. Within 24 hours of beginning antibiotic treatment, you will feel better and will be less contagious [1]. If you have a sore throat (not diagnosed as strep), you may participate in your usual activities assoon as you feel well. SORE THROAT PREVENTION Hand washing is an essential and highly effective way to prevent the spread of infection. Wet your hands with water and plain soap, and rub them together for 15 to 30 seconds. Pay special attention to the fingernails, between the fingers, and the wrists. Rinse your hands thoroughly, and dry them with a clean towel. Alcohol-based hand rubs are a good alternative for disinfecting hands if a sink is not available. Hand rubs should be spread over the entire surface of hands, fingers, and wrists until dry, and may be used several times. These rubs can be used repeatedly without skin irritation or loss of effectiveness. Hand rubs are available as a liquid or wipe in small, portable sizes that are easy to carry in a pocket or handbag. When a sink is available, visibly soiled hands should be washed with soap and water. Wash your hands after coughing, blowing the nose, or sneezing. While it is not always possible to avoid being near a person who is sick, avoiding touching your eyes, nose, or mouth to prevent the spread of infection. In addition, tissues should be used to cover the mouth when sneezing or coughing. These used tissues should be disposed of promptly. Sneezing/coughing into your sleeve (at the inner elbow) is anotherway to contain sprays of saliva and secretions and will not contaminate your hand documented in this encounterCenterville04-18-2022 History of Present illness Narrative* Manjit Flores APRN.CNP - 05/23/2021 8:12 AM EDT Telemedicine Visit - Distance Health Virtual Visit Note Patient seen on [employer] platform. Location of patient: [place] History of Present Illness Sasha Rachel is a 36 year old year old female who presents for the past 4 days with symptoms that are:gradually worsening. Had a negative COVID test on 05/15 at outside clinic. Patient was evaluated in person on 05/20 - diagnosed with bacterial sinusitis and started on Augmentin. States her sinus symptoms are not really improving. Symptoms include: Positive for sore throat - throat feels like it is on fire. C/o cough, nasal congestion, rhinorrhea, headache, sinus pain and pressure, and increased fatigue. Patient reports sore throat is keepingher up at night. States she is experiencing some diarrhea as well since beginning Augmentin. Negative for Fever, Chills/Sweats, Hemoptysis, SOB, WORLEY, Wheezing, Teeth pain , Otalgia, Nausea andEmesis Oral intake: Adequate Tobacco use: No Second hand smoke exposure: No Recent exposure to strep:No Sick contacts: Yes - son Recent travel: None OTC meds/remedies that patient has tried: Augmentin, chloraseptic spray, Mucinex Fast Max, ibuprofen, Flonase, saline, warm steam PAST MEDICAL HISTORY Diagnosis Date Abnormal Pap smear of cervix 2004 Allergic rhinitis due to other allergen Depressive disorder, not elsewhere classified Fibromyalgia Food poisoning 2014 Irritable bowel syndrome Myalgia and myositis, unspecified Other chronic sinusitis PAST SURGICAL HISTORY Procedure Laterality Date HYSTEROSCOPY BX ENDOMETRIUM&/POLYPC W/WO D&C 09/18/2019 hysteroscopy D&C for AUP TONSILLECTOMY & ADENOIDECTOMY AGE 12/> 1996 FAMILY HISTORY Problem Relation Age of Onset Breast Cancer Mother other (hypercholesterolemia) Mother diet controlled Parkinson s Disease Father Prostate Cancer Father No Known Problems Sister Heart Maternal Grandmother Psychiatry Maternal Grandfather Hypertension Paternal Grandmother Heart Paternal Grandmother Heart Paternal Grandfather Autism Son Social History Tobacco Use Smoking status: Never Smoker Smokeless tobacco: Never Used Vaping Use Vaping Use: Never used Substance Use Topics Alcohol use: Yes Comment: Occasionally, but not while Drug use: No Current Outpatient Medications Medication Sig amoxicillin-clavulanic acid (AUGMENTIN) 875-125 mg per tablet Take 1 tablet by mouth twice daily for 7 days. omeprazole (PRILOSEC) 20 mg capsule Take 1 capsule by mouth once daily. ondansetron orally disintegrating (ZOFRAN ODT) 4 mg disintegrating tablet Take 1-2 tablets by mouthevery 8 hours as needed for nausea/vomiting. norgestimate 0.25 mg-ethinyl estradiol 35 mcg (SPRINTEC) 0.25-35 mg-mcg per tablet Take 1 tablet bymouth once daily. sertraline (ZOLOFT) 100 mg tablet Take 1 tablet by mouth once daily. Cvwpueyk-Ej-Lyt-Fe-FA ( VITAMIN) tab Take 1 tablet by mouth. No current facility-administered medications for this visit. ALLERGIES Allergen Reactions Cats Other: See Comments Seasonal Allergies Other: See Comments Video Exam (Examination performed via Video enabled technology) General appearance: Alert, oriented, pleasant, in NAD :Yes Ill appearing :Yes but non-toxic; patient very nasally congested and blowing nose throughout visit Lethargic appearing :No Eyes: Sclera clear :Yes Conjunctiva without erythema :Yes Ears: Tragus / outer ear tenderness by self palpation :No Oropharynx: normal, no erythema; tonsils surgically removed Frontal sinus tenderness by self palpation;No Maxillary sinus tenderness by self palpation :Yes Tender cervical adenopathy by self palpation :Yes Respiratory distress :No Coughing noted :Yes Audible wheezing noted :No [facility] Criteria - Age (2-14=+1, 15-44=0, >=45 -1): 0 - Tonsillar exudates: 0 - Tender anterior cervical adenopathy: +1 - Fever by history (>38 or 100.4): 0 - Absence of cough: 0 0 points- probability of strep is 1-2.5% 1 point- probability of strep is 5-10% 2 points- probability of strep is 11-17% 3 points- probability of strep is 28-35% 4 points- probability of strep is 51-53% ASSESSMENT/PLAN: 1. Pharyngitis, unspecified etiology - ICD9: 462, ICD10: J02.9 (primary diagnosis) - LIDOCAINE HCL 2 % MUCOSAL SOLUTION - METHYLPREDNISOLONE 4 MG TABLETS IN A DOSE PACK - Low suspicion for bacterial pathology as patient already on Augmentin - Suspect allergies vs viral - Encouraged patient to start daily antihistamine (Zyrtec, Claritin, Cait) - Discussed use of ibuprofen, acetaminophen; discussed not using additional acetaminophen if takingOTC cold medications - Viscous lidocaine as needed - Medrol dose pack to help with cervical lymphadenopathy and pain 2. Acute non-recurrent maxillary sinusitis - ICD9: 461.0, ICD10: J01.00 - DOXYCYCLINE MONOHYDRATE 100 MG CAPSULE - D/c'ing Augmentin and switching to doxycycline as patient's symptoms are not improving after being on medication since 05/20 - Use a cool mist humidifier while sleeping/laying down - Steam showers to help with cough and congestion (steam up bathroom and sit in there for 15-20 minutes at a time) - Saline nose spray - Push fluids - Drink warm water/tea with honey - Tylenol/ibuprofen PRN pain, fever - Cover cough and wash hands frequently to prevent the spread of germs - Mucinex (generic is fine) 1200 mg twice daily to help with cough and to thin out mucus - [email or web address] This link shares information about when antibiotics may help and when they may not. - Discussed medication dosage, usage, goals of therapy, and side effects. - Hold multivitamin, calcium supplementation, and avoid dairy products while taking this antibiotic - Doxycycline may cause stomach upset. Take Doxycycline with food and avoid laying down for 30 min - 1 hour after taking - You may get sunburned more easily with this medication. Avoid sun exposure, sunlamps, and tanningbeds. Use sunscreen and wear clothing and eyewear that protects you from the sun. - Do not use if . - Return to [place] in person if symptoms are worsening or do not improve in 3 days - Red flags discussed for need for in person care - All questions answered Manjit Flores APRN.CNP If you let us know who your primary care provider is, we will send them a notification of today s visit through our electronic medical records system. Since not all providers have access to our notifications, we strongly encourage you to share the following record of today s visit with your primarycare provider at your next visit. This will help in providing you the best care. If you do not have an established Primary Care physician and would like to continue care with a [place] [facility] physician, please ask your provider to place a Establish PrimaryCare order. Use [employer] to manage your care, wherever you are, 28/08, on your mobile device or computer. [employer] connects you to [employer] so you can access all your health information in one place and also schedule and request virtual appointments with primary care providers. documented in this encounterCenterville04-15-2022 History of Present illness Narrative* Susu Garcia PA-C - 05/20/2021 11:15 AM EDT This note was created using [employer]. Subjective Sasha Rachel is a 36 year old female. HPI Patient presents with nasal congestion and sinus pressure over the past 10 days. She denies a significant cough. Her ears feel full as well. She was seen last week and told she likely had a viral infection had a negative COVID. She was told she had some fluid in her ears at that time. No vomiting or diarrhea. Her son is sick with similar symptoms. No chest pain or shortness of breath. She has tried Flonase and ehan-rpr-eubiizb sinus congestion medicines. They do not seem to be helping. Review of Systems Constitutional: Negative. HENT: Positive for congestion, ear pain, postnasal drip, sinus pressure and sinus pain. Negative for ear discharge. Respiratory: Negative. Cardiovascular: Negative. Gastrointestinal: Negative. Genitourinary: Negative. Musculoskeletal: Negative. Neurological: Positive for headaches. All other systems reviewed and are negative. PAST MEDICAL HISTORY Diagnosis Date Abnormal Pap smear of cervix 2004 Allergic rhinitis due to other allergen Depressive disorder, not elsewhere classified Fibromyalgia Food poisoning 2014 Irritable bowel syndrome Myalgia and myositis, unspecified Other chronic sinusitis Current Outpatient Medications Medication Sig Dispense Refill omeprazole (PRILOSEC) 20 mg capsule Take 1 capsule by mouth once daily. 30 capsule 0 ondansetron orally disintegrating (ZOFRAN ODT) 4 mg disintegrating tablet Take 1-2 tablets by mouthevery 8 hours as needed for nausea/vomiting. 20 tablet 0 norgestimate 0.25 mg-ethinyl estradiol 35 mcg (SPRINTEC) 0.25-35 mg-mcg per tablet Take 1 tablet bymouth once daily. 84 tablet 3 sertraline (ZOLOFT) 100 mg tablet Take 1 tablet by mouth once daily. 90 tablet 3 Gmkbtflj-Vj-Ryb-Fe-FA ( VITAMIN) tab Take 1 tablet by mouth. amoxicillin-clavulanic acid (AUGMENTIN) 875-125 mg per tablet Take 1 tablet by mouth twice daily for 7 days. 14 tablet 0 No current facility-administered medications for this visit. PAST SURGICAL HISTORY Procedure Laterality Date HYSTEROSCOPY BX ENDOMETRIUM&/POLYPC W/WO D&C 09/18/2019 hysteroscopy D&C for AUP TONSILLECTOMY & ADENOIDECTOMY AGE 12/> 1996 FAMILY HISTORY Problem Relation Age of Onset Breast Cancer Mother other (hypercholesterolemia) Mother diet controlled Parkinson s Disease Father Prostate Cancer Father No Known Problems Sister Heart Maternal Grandmother Psychiatry Maternal Grandfather Hypertension Paternal Grandmother Heart Paternal Grandmother Heart Paternal Grandfather Autism Son Social History Tobacco Use Smoking status: Never Smoker Smokeless tobacco: Never Used Vaping Use Vaping Use: Never used Substance Use Topics Alcohol use: Yes Comment: Occasionally, but not while Drug use: No Objective BP 134/82 Pulse 96 Temp 36.1 C (97 F) Resp 18 Wt 108.4 kg (239 lb) LMP 04/12/2021 SpO2 100% BMI 36.34 kg/m Physical Exam Vitals reviewed. Constitutional: Appearance: Normal appearance. HENT: Head: Normocephalic and atraumatic. Right Ear: Tympanic membrane, ear canal and external ear normal. Left Ear: Tympanic membrane, ear canal and external ear normal. Nose: Congestion present. Right Sinus: Maxillary sinus tenderness present. Left Sinus: Maxillary sinus tenderness present. Mouth/Throat: Lips: Carlyle. Mouth: Mucous membranes are moist. Pharynx: Oropharynx is clear. Cardiovascular: Rate and Rhythm: Normal rate and regular rhythm. Heart sounds: Normal heart sounds. Pulmonary: Effort: Pulmonary effort is normal. Breath sounds: Normal breath sounds. Musculoskeletal: Cervical back: Neck supple. Skin: General: Skin is warm and dry. Findings: No rash. Neurological: General: No focal deficit present. Mental Status: She is alert and oriented to person, place, and time. Assessment and Plan ASSESSMENT/PLAN: 1. Bacterial sinusitis - ICD9: 473.9, 041.9, ICD10: J32.9, B96.89 - Will begin treatment with Augmentin 875 mg PO BID for 7 days - Supportive care with plenty of fluids, rest, and analgesia prn. - Follow up in 3-5 days if symptoms persist or worsen. Susu Garcia PA-C documented in this encounterCenterville03-12-2022 Miscellaneous Notes* Telephone Encounter - Heidi Samuel - 04/16/2021 2:01 PM EST First Attempt, No answer, Left VM * Telephone Encounter - Shefali Carvajal APRN.CNS - 04/15/2021 4:53 PM EST consult placed * Telephone Encounter - Maira Mariscal RN - 04/15/2021 1:30 PM EST Patient states she had a [facility] visit today and provider recommended patient have a GIreferral placed. Patient asking Dr. Rivero to place that referral please. Please call patient, or send [facility] message, to let her know that referral was placed. Thank you. documented in this encounterCenterville11-27-2019 History of Past illness Narrative* Problem Noted Date Resolved Date Acute back pain with sciatica, left 01/01/2019 08/26/2019 Excessive growth affec ting management of in third trimester 07/22/2018 08/26/2019 Polyhydramnios in third trimester 07/22/2018 08/26/2019 29 weeks gestation of 05/28/2018 08/26/2019 At risk for depression 04/24/2018 08/26/2019 History of depression 12/06/2017 08/26/2019 Overview: 12/04/2017 Was seen for depression/anxiety and to review Trazadone use. Also saw PCP. Plan for Melatonin and Bendryl prn for sleep. Referral was also placed to psych given her significant anxiety. SW 12/06/2017Pt has a history of anxiety/depression diagnosed in 2007. She has been off medication since 12/03/2017 . She states she is having trouble sleeping due to anxiety. She saw Shefali Carvajal yesterday for an office visit regarding anxiety and has an upcoming appointment Karina Blue. Discussed increased risks of depression during and and importance of reporting the development or worsening of symptoms should they occur.Pt states she did have suicidal thoughts in the past but none x 7-8 months. TKRN documented as of this encounter (statuses as of 05/20/2021) [place]11-27-2019 History of Past illness Narrative* Problem Noted Date Resolved Date Acute back pain with sciatica, left 01/01/2019 08/26/2019 Excessive growth affec ting management of in third trimester 07/22/2018 08/26/2019 Polyhydramnios in third trimester 07/22/2018 08/26/2019 29 weeks gestation of 05/28/2018 08/26/2019 At risk for depression 04/24/2018 08/26/2019 History of depression 12/06/2017 08/26/2019 Overview: 12/04/2017 Was seen for depression/anxiety and to review Trazadone use. Also saw PCP. Plan for Melatonin and Bendryl prn for sleep. Referral was also placed to psych given her significant anxiety. SW 12/06/2017Pt has a history of anxiety/depression diagnosed in 2007. She has been off medication since 12/03/2017 . She states she is having trouble sleeping due to anxiety. She saw Shefali Carvajal yesterday for an office visit regarding anxiety and has an upcoming appointment Karina Blue. Discussed increased risks of depression during and and importance of reporting the development or worsening of symptoms should they occur.Pt states she did have suicidal thoughts in the past but none x 7-8 months. TKRN documented as of this encounter (statuses as of 05/23/2021) [place]11-27-2019 History of Past illness Narrative* Problem Noted Date Resolved Date Acute back pain with sciatica, left 01/01/2019 08/26/2019 Excessive growth affec ting management of in third trimester 07/22/2018 08/26/2019 Polyhydramnios in third trimester 07/22/2018 08/26/2019 29 weeks gestation of 05/28/2018 08/26/2019 At risk for depression 04/24/2018 08/26/2019 History of depression 12/06/2017 08/26/2019 Overview: 12/04/2017 Was seen for depression/anxiety and to review Trazadone use. Also saw PCP. Plan for Melatonin and Bendryl prn for sleep. Referral was also placed to psych given her significant anxiety. 12/06/2017Pt has a history of anxiety/depression diagnosed in 2007. She has been off medication since 12/03/2017 . She states she is having trouble sleeping due to anxiety. She saw Shefali Carvajal yesterday for an office visit regarding anxiety and has an upcoming appointment Karina Blue. Discussed increased risks of depression during and and importance of reporting the development or worsening of symptoms should they occur.Pt states she did have suicidal thoughts in the past but none x 7-8 months. TKRN documented as of this encounter (statuses as of 05/29/2021) [place]-27-[place] History of Past illness Narrative* Problem Noted Date Resolved Date Acute back pain with sciatica, left 01/01/2019 08/26/2019 Excessive growth affec ting management of in third trimester 07/22/2018 08/26/2019 Polyhydramnios in third trimester 07/22/2018 08/26/2019 29 weeks gestation of 05/28/2018 08/26/2019 At risk for depression 04/24/2018 08/26/2019 History of depression 12/06/2017 08/26/2019 Overview: 12/04/2017 Was seen for depression/anxiety and to review Trazadone use. Also saw PCP. Plan for Melatonin and Bendryl prn for sleep. Referral was also placed to psych given her significant anxiety. SW 12/06/2017Pt has a history of anxiety/depression diagnosed in 2007. She has been off medication since 12/03/2017 . She states she is having trouble sleeping due to anxiety. She saw Shefali Carvajal yesterday for an office visit regarding anxiety and has an upcoming appointment Karina Blue. Discussed increased risks of depression during and and importance of reporting the development or worsening of symptoms should they occur.Pt states she did have suicidal thoughts in the past but none x 7-8 months. TKRN documented as of this encounter (statuses as of 06/06/2021) [place]-27-2019 History of Past illness Narrative* Problem Noted Date Resolved Date Acute back pain with sciatica, left 01/01/2019 08/26/2019 Excessive growth affec ting management of in third trimester 07/22/2018 08/26/2019 Polyhydramnios in third trimester 07/22/2018 08/26/2019 29 weeks gestation of 05/28/2018 08/26/2019 At risk for depression 04/24/2018 08/26/2019 History of depression 12/06/2017 08/26/2019 Overview: 12/04/2017 Was seen for depression/anxiety and to review Trazadone use. Also saw PCP. Plan for Melatonin and Bendryl prn for sleep. Referral was also placed to psych given her significant anxiety. 12/06/2017Pt has a history of anxiety/depression diagnosed in 2007. She has been off medication since 12/03/2017 . She states she is having trouble sleeping due to anxiety. She saw Shefali Carvajal yesterday for an office visit regarding anxiety and has an upcoming appointment Karina Blue. Discussed increased risks of depression during and and importance of reporting the development or worsening of symptoms should they occur.Pt states she did have suicidal thoughts in the past but none x 7-8 months. TKRN documented as of this encounter (statuses as of 06/10/2021) [place]-27-[facility] History of Past illness Narrative* Problem Noted Date Resolved Date Acute back pain with sciatica, left 01/01/2019 08/26/2019 Excessive growth affec ting management of in third trimester 07/22/2018 08/26/2019 Polyhydramnios in third trimester 07/22/2018 08/26/2019 29 weeks gestation of 05/28/2018 08/26/2019 At risk for depression 04/24/2018 08/26/2019 History of depression 12/06/2017 08/26/2019 Overview: 12/04/2017 Was seen for depression/anxiety and to review Trazadone use. Also saw PCP. Plan for Melatonin and Bendryl prn for sleep. Referral was also placed to psych given her significant anxiety. 12/06/2017Pt has a history of anxiety/depression diagnosed in 2007. She has been off medication since 12/03/2017 . She states she is having trouble sleeping due to anxiety. She saw Shefali Carvajal yesterday for an office visit regarding anxiety and has an upcoming appointment Karina Blue. Discussed increased risks of depression during and and importance of reporting the development or worsening of symptoms should they occur.Pt states she did have suicidal thoughts in the past but none x 7-8 months. TKRN documented as of this encounter (statuses as of 06/13/2021) [place]-27-2019 History of Past illness Narrative* Problem Noted Date Resolved Date Acute back pain with sciatica, left 01/01/2019 08/26/2019 Excessive growth affec ting management of in third trimester 07/22/2018 08/26/2019 Polyhydramnios in third trimester 07/22/2018 08/26/2019 29 weeks gestation of 05/28/2018 08/26/2019 At risk for depression 04/24/2018 08/26/2019 History of depression 12/06/2017 08/26/2019 Overview: 12/04/2017 Was seen for depression/anxiety and to review Trazadone use. Also saw PCP. Plan for Melatonin and Bendryl prn for sleep. Referral was also placed to psych given her significant anxiety. SW 12/06/2017Pt has a history of anxiety/depression diagnosed in 2007. She has been off medication since 12/03/2017 . She states she is having trouble sleeping due to anxiety. She saw Shefali Carvajal yesterday for an office visit regarding anxiety and has an upcoming appointment Karina Blue. Discussed increased risks of depression during and and importance of reporting the development or worsening of symptoms should they occur.Pt states she did have suicidal thoughts in the past but none x 7-8 months. TKRN documented as of this encounter (statuses as of 06/24/2021) [place]11-27-2019 History of Past illness Narrative* Problem Noted Date Resolved Date Acute back pain with sciatica, left 01/01/2019 08/26/2019 Excessive growth affec ting management of in third trimester 07/22/2018 08/26/2019 Polyhydramnios in third trimester 07/22/2018 08/26/2019 29 weeks gestation of 05/28/2018 08/26/2019 At risk for depression 04/24/2018 08/26/2019 History of depression 12/06/2017 08/26/2019 Overview: 12/04/2017 Was seen for depression/anxiety and to review Trazadone use. Also saw PCP. Plan for Melatonin and Bendryl prn for sleep. Referral was also placed to psych given her significant anxiety. SW 12/06/2017Pt has a history of anxiety/depression diagnosed in 2007. She has been off medication since 12/03/2017 . She states she is having trouble sleeping due to anxiety. She saw Shefali Carvajal yesterday for an office visit regarding anxiety and has an upcoming appointment Karina Blue. Discussed increased risks of depression during and and importance of reporting the development or worsening of symptoms should they occur.Pt states she did have suicidal thoughts in the past but none x 7-8 months. TKRN documented as of this encounter (statuses as of 06/25/2021) [place]11-27-2019 History of Past illness Narrative* Problem Noted Date Resolved Date Acute back pain with sciatica, left 01/01/2019 08/26/2019 Excessive growth affec ting management of in third trimester 07/22/2018 08/26/2019 Polyhydramnios in third trimester 07/22/2018 08/26/2019 29 weeks gestation of 05/28/2018 08/26/2019 At risk for depression 04/24/2018 08/26/2019 History of depression 12/06/2017 08/26/2019 Overview: 12/04/2017 Was seen for depression/anxiety and to review Trazadone use. Also saw PCP. Plan for Melatonin and Bendryl prn for sleep. Referral was also placed to psych given her significant anxiety. SW 12/06/2017Pt has a history of anxiety/depression diagnosed in 2007. She has been off medication since 12/03/2017 . She states she is having trouble sleeping due to anxiety. She saw Shefali Carvajal yesterday for an office visit regarding anxiety and has an upcoming appointment Karina Blue. Discussed increased risks of depression during and and importance of reporting the development or worsening of symptoms should they occur.Pt states she did have suicidal thoughts in the past but none x 7-8 months. TKRN documented as of this encounter (statuses as of 06/30/2021) [place]-27-2019 History of Past illness Narrative* Problem Noted Date Resolved Date Acute back pain with sciatica, left 01/01/2019 08/26/2019 Excessive growth affec ting management of in third trimester 07/22/2018 08/26/2019 Polyhydramnios in third trimester 07/22/2018 08/26/2019 29 weeks gestation of 05/28/2018 08/26/2019 At risk for depression 04/24/2018 08/26/2019 History of depression 12/06/2017 08/26/2019 Overview: 12/04/2017 Was seen for depression/anxiety and to review Trazadone use. Also saw PCP. Plan for Melatonin and Bendryl prn for sleep. Referral was also placed to psych given her significant anxiety. DARSHAN 12/06/2017Pt has a history of anxiety/depression diagnosed in 2007. She has been off medication since 12/03/2017 . She states she is having trouble sleeping due to anxiety. She saw Shefali Carvajal yesterday for an office visit regarding anxiety and has an upcoming appointment Karina Blue. Discussed increased risks of depression during and and importance of reporting the development or worsening of symptoms should they occur.Pt states she did have suicidal thoughts in the past but none x 7-8 months. TKRN documented as of this encounter (statuses as of 06/30/2021) [place]11-27-2019 History of Past illness Narrative* Problem Noted Date Resolved Date Acute back pain with sciatica, left 01/01/2019 08/26/2019 Excessive growth affec ting management of in third trimester 07/22/2018 08/26/2019 Polyhydramnios in third trimester 07/22/2018 08/26/2019 29 weeks gestation of 05/28/2018 08/26/2019 At risk for depression 04/24/2018 08/26/2019 History of depression 12/06/2017 08/26/2019 Overview: 12/04/2017 Was seen for depression/anxiety and to review Trazadone use. Also saw PCP. Plan for Melatonin and Bendryl prn for sleep. Referral was also placed to psych given her significant anxiety. DARSHAN 12/06/2017Pt has a history of anxiety/depression diagnosed in 2007. She has been off medication since 12/03/2017 . She states she is having trouble sleeping due to anxiety. She saw Shefali Carvajal yesterday for an office visit regarding anxiety and has an upcoming appointment Karina Blue. Discussed increased risks of depression during and and importance of reporting the development or worsening of symptoms should they occur.Pt states she did have suicidal thoughts in the past but none x 7-8 months. TKRN documented as of this encounter (statuses as of 06/30/2021) [place]11-27-2019 History of Past illness Narrative* Problem Noted Date Resolved Date Acute back pain with sciatica, left 01/01/2019 08/26/2019 Excessive growth affec ting management of in third trimester 07/22/2018 08/26/2019 Polyhydramnios in third trimester 07/22/2018 08/26/2019 29 weeks gestation of 05/28/2018 08/26/2019 At risk for depression 04/24/2018 08/26/2019 History of depression 12/06/2017 08/26/2019 Overview: 12/04/2017 Was seen for depression/anxiety and to review Trazadone use. Also saw PCP. Plan for Melatonin and Bendryl prn for sleep. Referral was also placed to psych given her significant anxiety. DARSHAN 12/06/2017Pt has a history of anxiety/depression diagnosed in 2007. She has been off medication since 12/03/2017 . She states she is having trouble sleeping due to anxiety. She saw Shefali Carvajal yesterday for an office visit regarding anxiety and has an upcoming appointment Karina Blue. Discussed increased risks of depression during and and importance of reporting the development or worsening of symptoms should they occur.Pt states she did have suicidal thoughts in the past but none x 7-8 months. TKRN documented as of this encounter (statuses as of 07/27/2021) [place]-27-2019 History of Past illness Narrative* Problem Noted Date Resolved Date Acute back pain with sciatica, left 01/01/2019 08/26/2019 Excessive growth affec ting management of in third trimester 07/22/2018 08/26/2019 Polyhydramnios in third trimester 07/22/2018 08/26/2019 29 weeks gestation of 05/28/2018 08/26/2019 At risk for depression 04/24/2018 08/26/2019 History of depression 12/06/2017 08/26/2019 Overview: 12/04/2017 Was seen for depression/anxiety and to review Trazadone use. Also saw PCP. Plan for Melatonin and Bendryl prn for sleep. Referral was also placed to psych given her significant anxiety. 12/06/2017Pt has a history of anxiety/depression diagnosed in 2007. She has been off medication since 12/03/2017 . She states she is having trouble sleeping due to anxiety. She saw Shefali Carvajal yesterday for an office visit regarding anxiety and has an upcoming appointment Karina Blue. Discussed increased risks of depression during and and importance of reporting the development or worsening of symptoms should they occur.Pt states she did have suicidal thoughts in the past but none x 7-8 months. TKRN documented as of this encounter (statuses as of 07/27/2021) [place]-27-2019 History of Past illness Narrative* Problem Noted Date Resolved Date Acute back pain with sciatica, left 01/01/2019 08/26/2019 Excessive growth affec ting management of in third trimester 07/22/2018 08/26/2019 Polyhydramnios in third trimester 07/22/2018 08/26/2019 29 weeks gestation of 05/28/2018 08/26/2019 At risk for depression 04/24/2018 08/26/2019 History of depression 12/06/2017 08/26/2019 Overview: 12/04/2017 Was seen for depression/anxiety and to review Trazadone use. Also saw PCP. Plan for Melatonin and Bendryl prn for sleep. Referral was also placed to psych given her significant anxiety. 12/06/2017Pt has a history of anxiety/depression diagnosed in 2007. She has been off medication since 12/03/2017 . She states she is having trouble sleeping due to anxiety. She saw Shefali Carvajal yesterday for an office visit regarding anxiety and has an upcoming appointment Karina Blue. Discussed increased risks of depression during and and importance of reporting the development or worsening of symptoms should they occur.Pt states she did have suicidal thoughts in the past but none x 7-8 months. TKRN documented as of this encounter (statuses as of 08/03/2021) [place]-27-2019 History of Past illness Narrative* Problem Noted Date Resolved Date Acute back pain with sciatica, left 01/01/2019 08/26/2019 Excessive growth affec ting management of in third trimester 07/22/2018 08/26/2019 Polyhydramnios in third trimester 07/22/2018 08/26/2019 29 weeks gestation of 05/28/2018 08/26/2019 At risk for depression 04/24/2018 08/26/2019 History of depression 12/06/2017 08/26/2019 Overview: 12/04/2017 Was seen for depression/anxiety and to review Trazadone use. Also saw PCP. Plan for Melatonin and Bendryl prn for sleep. Referral was also placed to psych given her significant anxiety. DARSHAN 12/06/2017Pt has a history of anxiety/depression diagnosed in 2007. She has been off medication since 12/03/2017 . She states she is having trouble sleeping due to anxiety. She saw Shefali Carvajal yesterday for an office visit regarding anxiety and has an upcoming appointment Karina Blue. Discussed increased risks of depression during and and importance of reporting the development or worsening of symptoms should they occur.Pt states she did have suicidal thoughts in the past but none x 7-8 months. TKRN documented as of this encounter (statuses as of 08/05/2021) [place]-27-2019 History of Past illness Narrative* Problem Noted Date Resolved Date Acute back pain with sciatica, left 01/01/2019 08/26/2019 Excessive growth affec ting management of in third trimester 07/22/2018 08/26/2019 Polyhydramnios in third trimester 07/22/2018 08/26/2019 29 weeks gestation of 05/28/2018 08/26/2019 At risk for depression 04/24/2018 08/26/2019 History of depression 12/06/2017 08/26/2019 Overview: 12/04/2017 Was seen for depression/anxiety and to review Trazadone use. Also saw PCP. Plan for Melatonin and Bendryl prn for sleep. Referral was also placed to psych given her significant anxiety. DARSHAN 12/06/2017Pt has a history of anxiety/depression diagnosed in 2007. She has been off medication since 12/03/2017 . She states she is having trouble sleeping due to anxiety. She saw Shefali Carvajal yesterday for an office visit regarding anxiety and has an upcoming appointment Karina Blue. Discussed increased risks of depression during and and importance of reporting the development or worsening of symptoms should they occur.Pt states she did have suicidal thoughts in the past but none x 7-8 months. TKRN documented as of this encounter (statuses as of 09/12/2021) [place]-27-2019 History of Past illness Narrative* Problem Noted Date Resolved Date Acute back pain with sciatica, left 01/01/2019 08/26/2019 Excessive growth affec ting management of in third trimester 07/22/2018 08/26/2019 Polyhydramnios in third trimester 07/22/2018 08/26/2019 29 weeks gestation of 05/28/2018 08/26/2019 At risk for depression 04/24/2018 08/26/2019 History of depression 12/06/2017 08/26/2019 Overview: 12/04/2017 Was seen for depression/anxiety and to review Trazadone use. Also saw PCP. Plan for Melatonin and Bendryl prn for sleep. Referral was also placed to psych given her significant anxiety. SW 12/06/2017Pt has a history of anxiety/depression diagnosed in 2007. She has been off medication since 12/03/2017 . She states she is having trouble sleeping due to anxiety. She saw Shefali Carvajal yesterday for an office visit regarding anxiety and has an upcoming appointment Karina Blue. Discussed increased risks of depression during and and importance of reporting the development or worsening of symptoms should they occur.Pt states she did have suicidal thoughts in the past but none x 7-8 months. TKRN documented as of this encounter (statuses as of 09/19/2021) [place]-27-2019 History of Past illness Narrative* Problem Noted Date Resolved Date Acute back pain with sciatica, left 01/01/2019 08/26/2019 Excessive growth affec ting management of in third trimester 07/22/2018 08/26/2019 Polyhydramnios in third trimester 07/22/2018 08/26/2019 29 weeks gestation of 05/28/2018 08/26/2019 At risk for depression 04/24/2018 08/26/2019 History of depression 12/06/2017 08/26/2019 Overview: 12/04/2017 Was seen for depression/anxiety and to review Trazadone use. Also saw PCP. Plan for Melatonin and Bendryl prn for sleep. Referral was also placed to psych given her significant anxiety. 12/06/2017Pt has a history of anxiety/depression diagnosed in 2007. She has been off medication since 12/03/2017 . She states she is having trouble sleeping due to anxiety. She saw Shefali Carvajal yesterday for an office visit regarding anxiety and has an upcoming appointment Karina Blue. Discussed increased risks of depression during and and importance of reporting the development or worsening of symptoms should they occur.Pt states she did have suicidal thoughts in the past but none x 7-8 months. TKRN documented as of this encounter (statuses as of 10/19/2021) [place]-27-2019 History of Past illness Narrative* Problem Noted Date Resolved Date Acute back pain with sciatica, left 01/01/2019 08/26/2019 Excessive growth affec ting management of in third trimester 07/22/2018 08/26/2019 Polyhydramnios in third trimester 07/22/2018 08/26/2019 29 weeks gestation of 05/28/2018 08/26/2019 At risk for depression 04/24/2018 08/26/2019 History of depression 12/06/2017 08/26/2019 Overview: 12/04/2017 Was seen for depression/anxiety and to review Trazadone use. Also saw PCP. Plan for Melatonin and Bendryl prn for sleep. Referral was also placed to psych given her significant anxiety. 12/06/2017Pt has a history of anxiety/depression diagnosed in 2007. She has been off medication since 12/03/2017 . She states she is having trouble sleeping due to anxiety. She saw Shefali Carvajal yesterday for an office visit regarding anxiety and has an upcoming appointment Karina Blue. Discussed increased risks of depression during and and importance of reporting the development or worsening of symptoms should they occur.Pt states she did have suicidal thoughts in the past but none x 7-8 months. TKRN documented as of this encounter (statuses as of 10/21/2021) [place]-27-2019 History of Past illness Narrative* Problem Noted Date Resolved Date Acute back pain with sciatica, left 01/01/2019 08/26/2019 Excessive growth affec ting management of in third trimester 07/22/2018 08/26/2019 Polyhydramnios in third trimester 07/22/2018 08/26/2019 29 weeks gestation of 05/28/2018 08/26/2019 At risk for depression 04/24/2018 08/26/2019 History of depression 12/06/2017 08/26/2019 Overview: 12/04/2017 Was seen for depression/anxiety and to review Trazadone use. Also saw PCP. Plan for Melatonin and Bendryl prn for sleep. Referral was also placed to psych given her significant anxiety. DARSHAN 12/06/2017Pt has a history of anxiety/depression diagnosed in 2007. She has been off medication since 12/03/2017 . She states she is having trouble sleeping due to anxiety. She saw Shefali Carvajal yesterday for an office visit regarding anxiety and has an upcoming appointment Karina Blue. Discussed increased risks of depression during and and importance of reporting the development or worsening of symptoms should they occur.Pt states she did have suicidal thoughts in the past but none x 7-8 months. TKRN documented as of this encounter (statuses as of 02/08/2022) [place]11-27-2019 History of Past illness Narrative* Problem Noted Date Resolved Date Acute back pain with sciatica, left 01/01/2019 08/26/2019 Excessive growth affec ting management of in third trimester 07/22/2018 08/26/2019 Polyhydramnios in third trimester 07/22/2018 08/26/2019 29 weeks gestation of 05/28/2018 08/26/2019 At risk for depression 04/24/2018 08/26/2019 History of depression 12/06/2017 08/26/2019 Overview: 12/04/2017 Was seen for depression/anxiety and to review Trazadone use. Also saw PCP. Plan for Melatonin and Bendryl prn for sleep. Referral was also placed to psych given her significant anxiety. DARSHAN 12/06/2017Pt has a history of anxiety/depression diagnosed in 2007. She has been off medication since 12/03/2017 . She states she is having trouble sleeping due to anxiety. She saw Shefali Carvajal yesterday for an office visit regarding anxiety and has an upcoming appointment Karina Blue. Discussed increased risks of depression during and and importance of reporting the development or worsening of symptoms should they occur.Pt states she did have suicidal thoughts in the past but none x 7-8 months. TKRN documented as of this encounter (statuses as of 03/09/2022) [place]-27-2019 History of Past illness Narrative* Problem Noted Date Resolved Date Acute back pain with sciatica, left 01/01/2019 08/26/2019 Excessive growth affec ting management of in third trimester 07/22/2018 08/26/2019 Polyhydramnios in third trimester 07/22/2018 08/26/2019 29 weeks gestation of 05/28/2018 08/26/2019 At risk for depression 04/24/2018 08/26/2019 History of depression 12/06/2017 08/26/2019 Overview: 12/04/2017 Was seen for depression/anxiety and to review Trazadone use. Also saw PCP. Plan for Melatonin and Bendryl prn for sleep. Referral was also placed to psych given her significant anxiety. SW 12/06/2017Pt has a history of anxiety/depression diagnosed in 2007. She has been off medication since 12/03/2017 . She states she is having trouble sleeping due to anxiety. She saw Shefali Carvajal yesterday for an office visit regarding anxiety and has an upcoming appointment Karina Blue. Discussed increased risks of depression during and and importance of reporting the development or worsening of symptoms should they occur.Pt states she did have suicidal thoughts in the past but none x 7-8 months. TKRN documented as of this encounter (statuses as of 03/09/2022) [place]-27-2019 History of Past illness Narrative* Problem Noted Date Resolved Date Acute back pain with sciatica, left 01/01/2019 08/26/2019 Excessive growth affec ting management of in third trimester 07/22/2018 08/26/2019 Polyhydramnios in third trimester 07/22/2018 08/26/2019 29 weeks gestation of 05/28/2018 08/26/2019 At risk for depression 04/24/2018 08/26/2019 History of depression 12/06/2017 08/26/2019 Overview: 12/04/2017 Was seen for depression/anxiety and to review Trazadone use. Also saw PCP. Plan for Melatonin and Bendryl prn for sleep. Referral was also placed to psych given her significant anxiety. 12/06/2017Pt has a history of anxiety/depression diagnosed in 2007. She has been off medication since 12/03/2017 . She states she is having trouble sleeping due to anxiety. She saw Shefali Carvajal yesterday for an office visit regarding anxiety and has an upcoming appointment Karina Blue. Discussed increased risks of depression during and and importance of reporting the development or worsening of symptoms should they occur.Pt states she did have suicidal thoughts in the past but none x 7-8 months. TKRN documented as of this encounter (statuses as of 03/09/2022) [place]-27-2019 History of Past illness Narrative* Problem Noted Date Resolved Date Acute back pain with sciatica, left 01/01/2019 08/26/2019 Excessive growth affec ting management of in third trimester 07/22/2018 08/26/2019 Polyhydramnios in third trimester 07/22/2018 08/26/2019 29 weeks gestation of 05/28/2018 08/26/2019 At risk for depression 04/24/2018 08/26/2019 History of depression 12/06/2017 08/26/2019 Overview: 12/04/2017 Was seen for depression/anxiety and to review Trazadone use. Also saw PCP. Plan for Melatonin and Bendryl prn for sleep. Referral was also placed to psych given her significant anxiety. 12/06/2017Pt has a history of anxiety/depression diagnosed in 2007. She has been off medication since 12/03/2017 . She states she is having trouble sleeping due to anxiety. She saw Shefali Carvajal yesterday for an office visit regarding anxiety and has an upcoming appointment Karina Blue. Discussed increased risks of depression during and and importance of reporting the development or worsening of symptoms should they occur.Pt states she did have suicidal thoughts in the past but none x 7-8 months. TKRN documented as of this encounter (statuses as of 07/10/2022) [place]-27-2019 History of Past illness Narrative* Problem Noted Date Resolved Date Acute back pain with sciatica, left 01/01/2019 08/26/2019 Excessive growth affec ting management of in third trimester 07/22/2018 08/26/2019 Polyhydramnios in third trimester 07/22/2018 08/26/2019 29 weeks gestation of 05/28/2018 08/26/2019 At risk for depression 04/24/2018 08/26/2019 History of depression 12/06/2017 08/26/2019 Overview: 12/04/2017 Was seen for depression/anxiety and to review Trazadone use. Also saw PCP. Plan for Melatonin and Bendryl prn for sleep. Referral was also placed to psych given her significant anxiety. SW 12/06/2017Pt has a history of anxiety/depression diagnosed in 2007. She has been off medication since 12/03/2017 . She states she is having trouble sleeping due to anxiety. She saw Shefali Carvajal yesterday for an office visit regarding anxiety and has an upcoming appointment Karina Blue. Discussed increased risks of depression during and and importance of reporting the development or worsening of symptoms should they occur.Pt states she did have suicidal thoughts in the past but none x 7-8 months. TKRN documented as of this encounter (statuses as of 07/13/2022) [place]-27-2019 History of Past illness Narrative* Problem Noted Date Resolved Date Acute back pain with sciatica, left 01/01/2019 08/26/2019 Excessive growth affec ting management of in third trimester 07/22/2018 08/26/2019 Polyhydramnios in third trimester 07/22/2018 08/26/2019 29 weeks gestation of 05/28/2018 08/26/2019 At risk for depression 04/24/2018 08/26/2019 History of depression 12/06/2017 08/26/2019 Overview: 12/04/2017 Was seen for depression/anxiety and to review Trazadone use. Also saw PCP. Plan for Melatonin and Bendryl prn for sleep. Referral was also placed to psych given her significant anxiety. SW 12/06/2017Pt has a history of anxiety/depression diagnosed in 2007. She has been off medication since 12/03/2017 . She states she is having trouble sleeping due to anxiety. She saw Shefali Carvajal yesterday for an office visit regarding anxiety and has an upcoming appointment Karina Blue. Discussed increased risks of depression during and and importance of reporting the development or worsening of symptoms should they occur.Pt states she did have suicidal thoughts in the past but none x 7-8 months. TKRN documented as of this encounter (statuses as of 08/02/2022) [place]-27-2019 History of Past illness Narrative* Problem Noted Date Diagnosed Date Resolved Date Acute back pain with sciatica, left 01/01/2019 08/26/2019 Excessive growth affec ting management of in third trimester 07/22/2018 08/26/19 20 Polyhydramnios in third trimester 07/22/2018 08/26/2019 29 weeks gestation of 05/28/2018 08/26/2019 At risk for depression 04/24/2018 08/26/2019 History of depression 12/06/20172019 Overview: 12/04/2017 Was seen for depression/anxiety and to review Trazadone use. Also saw PCP. Plan for Melatonin and Bendryl prn for sleep. Referral was also placed to psych given her significant anxiety. SW 12/06/2017Pt has a history of anxiety/depression diagnosed in 2007. She has been off medication since 12/03/2017 . She states she is having trouble sleeping due to anxiety. She saw Shefali Carvajal yesterday for an office visit regarding anxiety and has an upcoming appointment Karina Blue. Discussed increased risks of depression during and and importance of reporting the development or worsening of symptoms should they occur.Pt states she did have suicidal thoughts in the past but none x 7-8 months. TKRN documented as of this encounter (statuses as of 08/15/2022) [place]11-27-2019 History of Past illness Narrative* Problem Noted Date Diagnosed Date Resolved Date Acute back pain with sciatica, left 01/01/2019 08/26/2019 Excessive growth affec ting management of in third trimester 07/22/2018 08/26/19 20 Polyhydramnios in third trimester 07/22/2018 08/26/2019 29 weeks gestation of 05/28/2018 08/26/2019 At risk for depression 04/24/2018 08/26/2019 History of depression 12/06/20172019 Overview: 12/04/2017 Was seen for depression/anxiety and to review Trazadone use. Also saw PCP. Plan for Melatonin and Bendryl prn for sleep. Referral was also placed to psych given her significant anxiety. SW 12/06/2017Pt has a history of anxiety/depression diagnosed in 2007. She has been off medication since 12/03/2017 . She states she is having trouble sleeping due to anxiety. She saw Shefali Carvajal yesterday for an office visit regarding anxiety and has an upcoming appointment Karina Blue. Discussed increased risks of depression during and and importance of reporting the development or worsening of symptoms should they occur.Pt states she did have suicidal thoughts in the past but none x 7-8 months. TKRN documented as of this encounter (statuses as of 08/19/2022) [place]-27-2019 History of Past illness Narrative* Problem Noted Date Diagnosed Date Resolved Date Acute back pain with sciatica, left 01/01/2019 08/26/2019 Excessive growth affec ting management of in third trimester 07/22/2018 08/26/19 20 Polyhydramnios in third trimester 07/22/2018 08/26/2019 29 weeks gestation of 05/28/2018 08/26/2019 At risk for depression 04/24/2018 08/26/2019 History of depression 12/06/20172019 Overview: 12/04/2017 Was seen for depression/anxiety and to review Trazadone use. Also saw PCP. Plan for Melatonin and Bendryl prn for sleep. Referral was also placed to psych given her significant anxiety. SW 12/06/2017Pt has a history of anxiety/depression diagnosed in 2007. She has been off medication since 12/03/2017 . She states she is having trouble sleeping due to anxiety. She saw Shefali Carvajal yesterday for an office visit regarding anxiety and has an upcoming appointment Karina Blue. Discussed increased risks of depression during and and importance of reporting the development or worsening of symptoms should they occur.Pt states she did have suicidal thoughts in the past but none x 7-8 months. TKRN documented as of this encounter (statuses as of 09/20/2022) [place]-27-2019 History of Past illness Narrative* Problem Noted Date Diagnosed Date Resolved Date Acute back pain with sciatica, left 01/01/2019 08/26/2019 Excessive growth affec ting management of in third trimester 07/22/2018 08/26/19 20 Polyhydramnios in third trimester 07/22/2018 08/26/2019 29 weeks gestation of 05/28/2018 08/26/2019 At risk for depression 04/24/2018 08/26/2019 History of depression 12/06/20172019 Overview: 12/04/2017 Was seen for depression/anxiety and to review Trazadone use. Also saw PCP. Plan for Melatonin and Bendryl prn for sleep. Referral was also placed to psych given her significant anxiety. SW 12/06/2017Pt has a history of anxiety/depression diagnosed in 2007. She has been off medication since 12/03/2017 . She states she is having trouble sleeping due to anxiety. She saw Shefali Carvajal yesterday for an office visit regarding anxiety and has an upcoming appointment Karina Blue. Discussed increased risks of depression during and and importance of reporting the development or worsening of symptoms should they occur.Pt states she did have suicidal thoughts in the past but none x 7-8 months. TKRN documented as of this encounter (statuses as of 09/23/2022) [place]11-27-2019 History of Past illness Narrative* Problem Noted Date Diagnosed Date Resolved Date Acute back pain with sciatica, left 01/01/2019 08/26/2019 Excessive growth affec ting management of in third trimester 07/22/2018 08/26/19 20 Polyhydramnios in third trimester 07/22/2018 08/26/2019 29 weeks gestation of 05/28/2018 08/26/2019 At risk for depression 04/24/2018 08/26/2019 History of depression 12/06/20172019 Overview: 12/04/2017 Was seen for depression/anxiety and to review Trazadone use. Also saw PCP. Plan for Melatonin and Bendryl prn for sleep. Referral was also placed to psych given her significant anxiety. DARSHAN 12/06/2017Pt has a history of anxiety/depression diagnosed in 2007. She has been off medication since 12/03/2017 . She states she is having trouble sleeping due to anxiety. She saw Shefali Carvajal yesterday for an office visit regarding anxiety and has an upcoming appointment Karina Blue. Discussed increased risks of depression during and and importance of reporting the development or worsening of symptoms should they occur.Pt states she did have suicidal thoughts in the past but none x 7-8 months. TKRN documented as of this encounter (statuses as of 09/25/2022) [place]11-27-2019 History of Past illness Narrative* Problem Noted Date Diagnosed Date Resolved Date Acute back pain with sciatica, left 01/01/2019 08/26/2019 Excessive growth affec ting management of in third trimester 07/22/2018 08/26/19 20 Polyhydramnios in third trimester 07/22/2018 08/26/2019 29 weeks gestation of 05/28/2018 08/26/2019 At risk for depression 04/24/2018 08/26/2019 History of depression 12/06/20172019 Overview: 12/04/2017 Was seen for depression/anxiety and to review Trazadone use. Also saw PCP. Plan for Melatonin and Bendryl prn for sleep. Referral was also placed to psych given her significant anxiety. SW 12/06/2017Pt has a history of anxiety/depression diagnosed in 2007. She has been off medication since 12/03/2017 . She states she is having trouble sleeping due to anxiety. She saw Shefali Carvajal yesterday for an office visit regarding anxiety and has an upcoming appointment Karina Blue. Discussed increased risks of depression during and and importance of reporting the development or worsening of symptoms should they occur.Pt states she did have suicidal thoughts in the past but none x 7-8 months. TKRN documented as of this encounter (statuses as of 10/28/2022) [place]11-27-2019 History of Past illness Narrative* Problem Noted Date Diagnosed Date Resolved Date Acute back pain with sciatica, left 01/01/2019 08/26/2019 Excessive growth affec ting management of in third trimester 07/22/2018 08/26/19 20 Polyhydramnios in third trimester 07/22/2018 08/26/2019 29 weeks gestation of 05/28/2018 08/26/2019 At risk for depression 04/24/2018 08/26/2019 History of depression 12/06/20172019 Overview: 12/04/2017 Was seen for depression/anxiety and to review Trazadone use. Also saw PCP. Plan for Melatonin and Bendryl prn for sleep. Referral was also placed to psych given her significant anxiety. SW 12/06/2017Pt has a history of anxiety/depression diagnosed in 2007. She has been off medication since 12/03/2017 . She states she is having trouble sleeping due to anxiety. She saw Shefali Carvajal yesterday for an office visit regarding anxiety and has an upcoming appointment Karina Blue. Discussed increased risks of depression during and and importance of reporting the development or worsening of symptoms should they occur.Pt states she did have suicidal thoughts in the past but none x 7-8 months. TKRN documented as of this encounter (statuses as of 11/18/2022) [place]11-27-2019 History of Past illness Narrative* Problem Noted Date Diagnosed Date Resolved Date Acute back pain with sciatica, left 01/01/2019 08/26/2019 Excessive growth affec ting management of in third trimester 07/22/2018 08/26/19 20 Polyhydramnios in third trimester 07/22/2018 08/26/2019 29 weeks gestation of 05/28/2018 08/26/2019 At risk for depression 04/24/2018 08/26/2019 History of depression 12/06/20172019 Overview: 12/04/2017 Was seen for depression/anxiety and to review Trazadone use. Also saw PCP. Plan for Melatonin and Bendryl prn for sleep. Referral was also placed to psych given her significant anxiety. SW 12/06/2017Pt has a history of anxiety/depression diagnosed in 2007. She has been off medication since 12/03/2017 . She states she is having trouble sleeping due to anxiety. She saw Shefali Carvajal yesterday for an office visit regarding anxiety and has an upcoming appointment Karina Blue. Discussed increased risks of depression during and and importance of reporting the development or worsening of symptoms should they occur.Pt states she did have suicidal thoughts in the past but none x 7-8 months. TKRN documented as of this encounter (statuses as of 12/05/2022) [place]-27-2019 History of Past illness Narrative* Problem Noted Date Diagnosed Date Resolved Date Acute back pain with sciatica, left 01/01/2019 08/26/2019 Excessive growth affec ting management of in third trimester 07/22/2018 08/26/19 20 Polyhydramnios in third trimester 07/22/2018 08/26/2019 29 weeks gestation of 05/28/2018 08/26/2019 At risk for depression 04/24/2018 08/26/2019 History of depression 12/06/20172019 Overview: 12/04/2017 Was seen for depression/anxiety and to review Trazadone use. Also saw PCP. Plan for Melatonin and Bendryl prn for sleep. Referral was also placed to psych given her significant anxiety. SW 12/06/2017Pt has a history of anxiety/depression diagnosed in 2007. She has been off medication since 12/03/2017 . She states she is having trouble sleeping due to anxiety. She saw Shefali Carvajal yesterday for an office visit regarding anxiety and has an upcoming appointment Karina Blue. Discussed increased risks of depression during and and importance of reporting the development or worsening of symptoms should they occur.Pt states she did have suicidal thoughts in the past but none x 7-8 months. TKRN documented as of this encounter (statuses as of 12/20/2022) [place]-27-2019 History of Past illness Narrative* Problem Noted Date Diagnosed Date Resolved Date Acute back pain with sciatica, left 01/01/2019 08/26/2019 Excessive growth affec ting management of in third trimester 07/22/2018 08/26/19 20 Polyhydramnios in third trimester 07/22/2018 08/26/2019 29 weeks gestation of 05/28/2018 08/26/2019 At risk for depression 04/24/2018 08/26/2019 History of depression 12/06/20172019 Overview: 12/04/2017 Was seen for depression/anxiety and to review Trazadone use. Also saw PCP. Plan for Melatonin and Bendryl prn for sleep. Referral was also placed to psych given her significant anxiety. SW 12/06/2017Pt has a history of anxiety/depression diagnosed in 2007. She has been off medication since 12/03/2017 . She states she is having trouble sleeping due to anxiety. She saw Shefali Carvajal yesterday for an office visit regarding anxiety and has an upcoming appointment Karina Blue. Discussed increased risks of depression during and and importance of reporting the development or worsening of symptoms should they occur.Pt states she did have suicidal thoughts in the past but none x 7-8 months. TKRN documented as of this encounter (statuses as of 12/20/2022) [place]11-27-2019 History of Past illness Narrative* Problem Noted Date Diagnosed Date Resolved Date Acute back pain with sciatica, left 01/01/2019 08/26/2019 Excessive growth affec ting management of in third trimester 07/22/2018 08/26/19 20 Polyhydramnios in third trimester 07/22/2018 08/26/2019 29 weeks gestation of 05/28/2018 08/26/2019 At risk for depression 04/24/2018 08/26/2019 History of depression 12/06/20172019 Overview: 12/04/2017 Was seen for depression/anxiety and to review Trazadone use. Also saw PCP. Plan for Melatonin and Bendryl prn for sleep. Referral was also placed to psych given her significant anxiety. SW 12/06/2017Pt has a history of anxiety/depression diagnosed in 2007. She has been off medication since 12/03/2017 . She states she is having trouble sleeping due to anxiety. She saw Shefali Carvajal yesterday for an office visit regarding anxiety and has an upcoming appointment Karina Blue. Discussed increased risks of depression during and and importance of reporting the development or worsening of symptoms should they occur.Pt states she did have suicidal thoughts in the past but none x 7-8 months. TKRN documented as of this encounter (statuses as of 12/21/2022) [place]11-27-2019 History of Past illness Narrative* Problem Noted Date Diagnosed Date Resolved Date Acute back pain with sciatica, left 01/01/2019 08/26/2019 Excessive growth affec ting management of in third trimester 07/22/2018 08/26/19 20 Polyhydramnios in third trimester 07/22/2018 08/26/2019 29 weeks gestation of 05/28/2018 08/26/2019 At risk for depression 04/24/2018 08/26/2019 History of depression 12/06/20172019 Overview: 12/04/2017 Was seen for depression/anxiety and to review Trazadone use. Also saw PCP. Plan for Melatonin and Bendryl prn for sleep. Referral was also placed to psych given her significant anxiety. SW 12/06/2017Pt has a history of anxiety/depression diagnosed in 2007. She has been off medication since 12/03/2017 . She states she is having trouble sleeping due to anxiety. She saw Shefali Carvajal yesterday for an office visit regarding anxiety and has an upcoming appointment Karina Blue. Discussed increased risks of depression during and and importance of reporting the development or worsening of symptoms should they occur.Pt states she did have suicidal thoughts in the past but none x 7-8 months. TKRN documented as of this encounter (statuses as of 12/27/2022) [place]11-27-2019 History of Past illness Narrative* Problem Noted Date Diagnosed Date Resolved Date Acute back pain with sciatica, left 01/01/2019 08/26/2019 Excessive growth affec ting management of in third trimester 07/22/2018 08/26/19 20 Polyhydramnios in third trimester 07/22/2018 08/26/2019 29 weeks gestation of 05/28/2018 08/26/2019 At risk for depression 04/24/2018 08/26/2019 History of depression 12/06/20172019 Overview: 12/04/2017 Was seen for depression/anxiety and to review Trazadone use. Also saw PCP. Plan for Melatonin and Bendryl prn for sleep. Referral was also placed to psych given her significant anxiety. SW 12/06/2017Pt has a history of anxiety/depression diagnosed in 2007. She has been off medication since 12/03/2017 . She states she is having trouble sleeping due to anxiety. She saw Shefali Carvajal yesterday for an office visit regarding anxiety and has an upcoming appointment Karina Blue. Discussed increased risks of depression during and and importance of reporting the development or worsening of symptoms should they occur.Pt states she did have suicidal thoughts in the past but none x 7-8 months. TKRN documented as of this encounter (statuses as of 01/02/2023) [place]11-27-2019 History of Past illness Narrative* Problem Noted Date Diagnosed Date Resolved Date Acute back pain with sciatica, left 01/01/2019 08/26/2019 Excessive growth affec ting management of in third trimester 07/22/2018 08/26/19 20 Polyhydramnios in third trimester 07/22/2018 08/26/2019 29 weeks gestation of 05/28/2018 08/26/2019 At risk for depression 04/24/2018 08/26/2019 History of depression 12/06/20172019 Overview: 12/04/2017 Was seen for depression/anxiety and to review Trazadone use. Also saw PCP. Plan for Melatonin and Bendryl prn for sleep. Referral was also placed to psych given her significant anxiety. SW 12/06/2017Pt has a history of anxiety/depression diagnosed in 2007. She has been off medication since 12/03/2017 . She states she is having trouble sleeping due to anxiety. She saw Shefali Carvajal yesterday for an office visit regarding anxiety and has an upcoming appointment Karina Blue. Discussed increased risks of depression during and and importance of reporting the development or worsening of symptoms should they occur.Pt states she did have suicidal thoughts in the past but none x 7-8 months. TKRN documented as of this encounter (statuses as of 01/15/2023) [place]11-27-2019 History of Past illness Narrative* Problem Noted Date Diagnosed Date Resolved Date Acute back pain with sciatica, left 01/01/2019 08/26/2019 Excessive growth affec ting management of in third trimester 07/22/2018 08/26/19 20 Polyhydramnios in third trimester 07/22/2018 08/26/2019 29 weeks gestation of 05/28/2018 08/26/2019 At risk for depression 04/24/2018 08/26/2019 History of depression 12/06/20172019 Overview: 12/04/2017 Was seen for depression/anxiety and to review Trazadone use. Also saw PCP. Plan for Melatonin and Bendryl prn for sleep. Referral was also placed to psych given her significant anxiety. SW 12/06/2017Pt has a history of anxiety/depression diagnosed in 2007. She has been off medication since 12/03/2017 . She states she is having trouble sleeping due to anxiety. She saw Shefali Carvajal yesterday for an office visit regarding anxiety and has an upcoming appointment Karina Blue. Discussed increased risks of depression during and and importance of reporting the development or worsening of symptoms should they occur.Pt states she did have suicidal thoughts in the past but none x 7-8 months. TKRN documented as of this encounter (statuses as of 01/16/2023) [place]11-27-2019 History of Past illness Narrative* Problem Noted Date Diagnosed Date Resolved Date Acute back pain with sciatica, left 01/01/2019 08/26/2019 Excessive growth affec ting management of in third trimester 07/22/2018 08/26/19 20 Polyhydramnios in third trimester 07/22/2018 08/26/2019 29 weeks gestation of 05/28/2018 08/26/2019 At risk for depression 04/24/2018 08/26/2019 History of depression 12/06/20172019 Overview: 12/04/2017 Was seen for depression/anxiety and to review Trazadone use. Also saw PCP. Plan for Melatonin and Bendryl prn for sleep. Referral was also placed to psych given her significant anxiety. SW 12/06/2017Pt has a history of anxiety/depression diagnosed in 2007. She has been off medication since 12/03/2017 . She states she is having trouble sleeping due to anxiety. She saw Shefali Carvajal yesterday for an office visit regarding anxiety and has an upcoming appointment Karina Blue. Discussed increased risks of depression during and and importance of reporting the development or worsening of symptoms should they occur.Pt states she did have suicidal thoughts in the past but none x 7-8 months. TKRN documented as of this encounter (statuses as of 01/25/2023) [place]11-27-2019 History of Past illness Narrative* Problem Noted Date Diagnosed Date Resolved Date Acute back pain with sciatica, left 01/01/2019 08/26/2019 Excessive growth affec ting management of in third trimester 07/22/2018 08/26/19 20 Polyhydramnios in third trimester 07/22/2018 08/26/2019 29 weeks gestation of 05/28/2018 08/26/2019 At risk for depression 04/24/2018 08/26/2019 History of depression 12/06/20172019 Overview: 12/04/2017 Was seen for depression/anxiety and to review Trazadone use. Also saw PCP. Plan for Melatonin and Bendryl prn for sleep. Referral was also placed to psych given her significant anxiety. SW 12/06/2017Pt has a history of anxiety/depression diagnosed in 2007. She has been off medication since 12/03/2017 . She states she is having trouble sleeping due to anxiety. She saw Shefali Carvajal yesterday for an office visit regarding anxiety and has an upcoming appointment Karina Blue. Discussed increased risks of depression during and and importance of reporting the development or worsening of symptoms should they occur.Pt states she did have suicidal thoughts in the past but none x 7-8 months. TKRN documented as of this encounter (statuses as of 03/13/2023) [place] Author Aristeo Lara [facility] Note Date/Time May 23, 2024 8:4 9am [facility] Medical Records Department [address] [place] [address] Anesthesia Postop Eval I 05/23/24 075 MR#: [id number] Acct: [id number] Name: SASHA RACHEL Rep #:[id number] : 1985 39 From: Aristeo LYNN PCP: Dr. Hung Rivero MD Status:JANE JAIN Y Race: C Location: [place] [address] Anesthesia: Postop Eval I Current Vital Signs Temperature: 96.9 F Pulse Rate: 75 Blood Pressure: 96/54 Respiratory Rate: 18 Pulse Ox: 92 Assessment Airway patent: Yes Spontaneous unlabored respirations: Yes nausea: No Vomiting: No Anesthesia Complication: No Fluid Hydration Crystalloid volume administer (ml): 300 Total IV fluid infused: 300 Progress Note Anesthesia document: Postop Eval 1 completed: Yes 05/23/24751 <Electronically signed by Aristeo Lara CRNA> Date _ Aristeo Lara CRNA Cosigner Signature: Date CC: ~ Signed [facility] Work Phone: Consult note Author Raul dominick [facility] Note Date/Time May 23, 2024 8:4 9am [facility] Medical Records Department [address] [place] [address] Anesthesia Postop Eval II 05/23/24 0808 MR#: [id number] Acct: [id number] Name: SASHA RACHEL Rep #:[id number] : 1985 39 From: Raul Godinez MD PCP: Dr. Hung Rivero MD Status:JANE JAIN Y Race: C Location: [place] [address] Anesthesia Postop Eval I Sum Postop Eval Completion status Anesthesia document: Postop Eval 1 completed: Yes Anesthesia Postop Eval I Summary Anesthesia Postop Eval I Summary: Anesthesia Postop Eval I: Assessment Summary Airway patent Yes 05/23/24 07:52 [email or web address] Spontaneous unlabored Yes 05/23/24 07:52 [email or web address] respirations Mental status nausea No 05/23/24 07:52 [email or web address] Vomiting No 05/23/24 07:52 [email or web address] Anesthesia Postop Eval I: Fluid Summary Crystalloid volume administer 300 05/23/24 07:52 [email or web address] (ml) Colloids volume administered ( ml) Blood Product volume administered (ml) Total IV fluid infused 300 05/23/24 07:52 [email or web address] Anesthesia Postop Eval I: Summary Notes Anesthesia Complication No 05/23/24 07:52 [email or web address] Anesthesia Complication Comment: Post-operative progress note Anesthesia: Postop Eval II Evaluation Mental status: Awake Pain Level: 0 nausea: No Vomiting: No 05/23/24 0808 <Electronically signed by Raul Godinez MD > Date _ Raul Godinez MD Cosigner Signature: Date CC: ~ Signed [facility] Work Phone: Discharge summary Author Marisabel Swenson [place] Note Date/Time May 23, 2024 7:1 7am [facility] Medical Records Department [address] [facility] [place] [address] Instructions for Home/Discharge Instructions 05/23/24715 MR#: [id number] Acct: [id number] Name: SASHA RACHEL Rep #:[id number] : 1985 39 From: Marisabel Zavaleta MD PCP: Dr. Hung Rivero MD Status:RE G [facility] Discharge Instructions Diet Discharge Diet: No restrictions DC O2, CPAP, BIPAP needs Home O2 Discharge instructions: No Dressing / Incision May resume sexual activity in: 1 week Dressing / Incision Call your doctor if you observe: Fever of 101 or Higher, Inability to urinate, Using more than 1 pad per hour and Uncontrolled pain Follow Up Care Please Follow Up With: Marisabel Kelly MD When: 4-6 weeks for IUD check. I will call you when pathology results are available. If you feel you need seen before that time please call [phone] to schedule an appointment. Test Results: Test results from this visit will be discussed in further detail at your follow- up appointment, if applicable. Discharge Plan Admission Attending Provider: Marisabel Kelly Primary Care Provider: Hung Rivero Instructions Print Language: Citizen Of [place] Discharge Orders/Prescriptions Prescriptions: No Action sertraline 50 MG tablet 100 mg PO QHS hydroxyzine HCl 10 mg tablet 10 - 20 mg PO TID PRN PRN (Reason: anxiety) albuterol sulfate 90 mcg/actuation HFA aerosol inhaler 2 puff INHALATION Q6H PRN PRN (Reason: wheezing) ul-jo-caej-FA-Ca carb-vit K 18 mg iron-400 mcg-500 mg tablet 2 tab PO DAILY norethindrone acetate 5 mg tablet PO Referrals / Follow Up: Hung Rivero MD [Primary Care Provider] - Disposition Disposition (needs filled in before D/C Order can be placed): Home, Self Care 05/23/24 0717<Electronically signed by Marisabel Kelly MD>Marisabel Kelly MD CC: Dr. Hung Rivero MD ~ Signed [facility] Work Phone: Evaluation note* Diagnosis Bacterial sinusitis- Primary Unspecified sinusitis (chronic) [facility]* Diagnosis Pharyngitis, unspecified etiology- Primary Acute non-recurrent maxillary sinusitis documented in this encounter [facility] note* Diagnosis Bronchitis- Primary Bronchitis, not specified as acute or chronic documented in this encounter [facility] note* Diagnosis Labial cyst- Primary Other specified noninflammatory disorder of vulva and perineum [facility]* Diagnosis Anxiety- Primary Anxiety state, unspecified Routine medical exam Routine general medical examination at a health care facility Screening for hyperlipidemia Screening for lipoid disorders Screening for diabetes mellitus [facility]* Diagnosis Suspected COVID-19 virus infection- Primary [facility]* Diagnosis Treatment not available- Primary Procedure not carried out for other reasons documented [facility]* Diagnosis COVID-19 virus infection- Primary Post-nasal drainage Unspecified sinusitis (chronic) documented [facility]* Diagnosis Procedure and treatment not carried out for other reasons- Primary [facility]* Diagnosis Post-COVID chronic cough- Primary [facility]* Diagnosis Right upper quadrant abdominal tenderness without rebound tenderness- Primary Nausea Nausea alone Diarrhea, unspecified type documented in this encounter [facility] note* Diagnosis Post-COVID chronic cough- Primary Fatigue after COVID-19 vaccination Class 2 obesity with body mass index (BMI) of 37.0 to 37.9 in adult, unspecified obesity type, unspecified whether serious comorbidity present documented [facility]* Diagnosis Dietary counseling- Primary Dietary surveillance and counseling Class 2 obesity with body mass index (BMI) of 37.0 to 37.9 in adult, unspecified obesity type, unspecified whether serious comorbidity present [facility]* Diagnosis Routine medical exam- Primary Routine general medical examination at a health care facility Encounter for immunization Need for other specified prophylactic vaccination against single bacterial disease Class 2 obesity with body mass index (BMI) of 37.0 to 37.9 in adult, unspecified obesity type, unspecified whether serious comorbidity present Post-COVID chronic cough [facility]* Diagnosis Headache, unspecified headache type- Primary [facility]* Diagnosis Tension headache- Primary Encounter for immunization Need for other specified prophylactic vaccination against single bacterial disease Need for influenza vaccination Need for prophylactic vaccination and inoculation against influenza Cervicalgia [facility]* Diagnosis Acute midline low back pain without sciatica- Primary [facility]* Diagnosis Acute pharyngitis, unspecified etiology- Primary URI, acute Acute upper respiratory infections of unspecified site documented in this encounter [facility] note* Diagnosis Throat pain in adult- Primary Throat pain documented in this encounter [facility] note* Diagnosis Anxiety attack- Primary Panic disorder without agoraphobia documented in this encounter [facility] note* Diagnosis Anxiety- Primary Anxiety state, unspecified Anxiety attack Panic disorder without agoraphobia Other fatigue HELDER (obstructive sleep apnea) Obstructive sleep apnea (adult) (pediatric) Vitamin D deficiency Unspecified vitamin D deficiency Class 2 obesity with body mass index (BMI) of 37.0 to 37.9 in adult, unspecified obesity type, unspecified whether serious comorbidity present Encounter for therapeutic drug monitoring documented in this encounter [facility] note* Diagnosis Anxiety- Primary Anxiety state, unspecified Anxiety attack Panic disorder without agoraphobia Class 2 obesity with body mass index (BMI) of 38.0 to 38.9 in adult, unspecified obesity type, unspecified whether serious comorbidity present documented in this encounter [facility] note* Diagnosis General counseling and advice for contraceptive management- Primary Other general counseling and advice for contraceptive management Depression, unspecified depression type Class 2 obesity with body mass index (BMI) of 39.0 to 39.9 in adult, unspecified obesity type, unspecified whether serious comorbidity present documented in this encounter [facility] note* Diagnosis Screening for lipid disorders- Primary documented in this encounter [facility] note* Diagnosis Sore throat- Primary Acute pharyngitis URI, acute Acute upper respiratory infections of unspecified site Headache, unspecified headache type documented in this encounter [facility] note* Diagnosis Sore throat- Primary Acute pharyngitis Anxiety and depression Dysthymic disorder Class 2 obesity with body mass index (BMI) of 38.0 to 38.9 in adult, unspecified obesity type, unspecified whether serious comorbidity present Encounter for immunization Need for other specified prophylactic vaccination against single bacterial disease documented in this encounter [facility] note* Diagnosis Anxiety and depression- Primary Dysthymic disorder Class 2 obesity with body mass index (BMI) of 38.0 to 38.9 in adult, unspecified obesity type, unspecified whether serious comorbidity present documented in this encounter [facility] note* Diagnosis Dyslipidemia- Primary Other and unspecified hyperlipidemia Depression, unspecified depression type Anxiety Anxiety state, unspecified Vitamin D deficiency Unspecified vitamin D deficiency Surveillance for control, oral contraceptives Surveillance of previously prescribed contraceptive pill Class 2 obesity without serious comorbidity with body mass index (BMI) of 39.0 to 39.9 in adult, unspecified obesity type documented in this encounter [facility] note* Diagnosis Anxiety and depression- Primary Dysthymic disorder Class 2 obesity with body mass index (BMI) of 38.0 to 38.9 in adult, unspecified obesity type, unspecified whether serious comorbidity present documented in this encounter [facility] note* Diagnosis Rash- Primary Rash and other nonspecific skin eruption documented in this encounter [facility] note* Diagnosis Cellulitis of skin- Primary Cellulitis and abscess of unspecified site Rash Rash and other nonspecific skin eruption Bad odor of urine Other nonspecific finding on examination of urine Vaginal discharge Leukorrhea, not specified as infective Dyslipidemia- Primary Other and unspecified hyperlipidemia Depression, unspecified depression type Anxiety Anxiety state, unspecified Vitamin D deficiency Unspecified vitamin D deficiency Class 2 obesity without serious comorbidity with body mass index (BMI) of 39.0 to 39.9 in adult, unspecified obesity type documented in this encounter [facility] note* Diagnosis Dyslipidemia- Primary Other and unspecified hyperlipidemia Depression, unspecified depression type Anxiety Anxiety state, unspecified Vitamin D deficiency Unspecified vitamin D deficiency Class 2 obesity without serious comorbidity with body mass index (BMI) of 39.0 to 39.9 in adult, unspecified obesity type documented in this encounter [facility] note* Diagnosis Cellulitis of skin Cellulitis and abscess of unspecified site Rash Rash and other nonspecific skin eruption documented in this encounter [facility] noteNo assessment information availableWMer[facility] Work Phone: Evaluation note* Diagnosis Encounter for gynecological examination (general) (routine) without abnormal findings- Primary Surveillance for control, oral contraceptives Surveillance of previously prescribed contraceptive pill Encounter for Papanicolaou smear for cervical cancer screening Special screening examination for human papillomavirus (HPV) documented in this encounter [facility] note* Diagnosis Anxiety attack Panic disorder without agoraphobia documented in this encounter [facility] note* Diagnosis Vaginal discomfort- Primary Unspecified symptom associated with female genital organs documented in this encounter [facility] note* Diagnosis Anxiety attack Panic disorder without agoraphobia [facility] Diagnosis Routine physical examination- Primary Routine general medical examination at a health care facility Screening for lipid disorders Encounter for screening for diabetes mellitus Screening for diabetes mellitus Vitamin D deficiency Unspecified vitamin D deficiency [facility] Diagnosis Wellness examination- Primary Anxiety attack Panic disorder without agoraphobia Anxiety and depression Dysthymic disorder Class 2 obesity with body mass index (BMI) of 37.0 to 37.9 in adult, unspecified obesity type, unspecified whether serious comorbidity present [facility]* Diagnosis Cough [facility]* Diagnosis Sinobronchitis- Primary Unspecified sinusitis (chronic) Anxiety and depression Dysthymic disorder [facility]* Diagnosis Tail bone pain- Primary Other disorder of coccyx Numbness in feet Disturbance of skin sensation Bilateral hand numbness Disturbance of skin sensation Bilateral leg numbness Disturbance of skin sensation Vitamin D deficiency Unspecified vitamin D deficiency Class 2 obesity with body mass index (BMI) of 37.0 to 37.9 in adult, unspecified obesity type, unspecified whether serious comorbidity present Anxiety attack Panic disorder without agoraphobia Recurrent major depressive disorder, in partial remission (HCC) Amenorrhea, secondary Absence of menstruation Snoring Other dyspnea and respiratory abnormality Daytime sleepiness [facility]* Diagnosis Encounter for gynecological examination (general) (routine) without abnormal findings- Primary [facility] Diagnosis Acute cough- Primary Sinus congestion Other diseases of nasal cavity and sinuses Numbness and tingling of lower extremity Chronic midline low back pain with left-sided sciatica Acute cough [facility]* Diagnosis Abnormal uterine bleeding (AUB)- Primary Provided repeat prescription for oral contraceptive [facility]* Diagnosis Numbness and tingling of lower extremity Chronic midline low back pain with left-sided sciatica Acute cough [facility]* Diagnosis Numbness and tingling of lower extremity- Primary Vitamin D deficiency Unspecified vitamin D deficiency Chronic midline low back pain with left-sided sciatica Class 2 obesity with body mass index (BMI) of 37.0 to 37.9 in adult, unspecified obesity type, unspecified whether serious comorbidity present Snoring Other dyspnea and respiratory abnormality Daytime sleepiness [facility] Diagnosis Abnormal uterine bleeding- Primary Unspecified disorder of menstruation and other abnormal bleeding from female genital tract Thickened endometrium- Primary Nonspecific (abnormal) findings on radiological and other examination of genitourinary organs Abnormal uterine bleeding Unspecified disorder of menstruation and other abnormal bleeding from female genital tract [facility] Diagnosis Thickened endometrium- Primary Nonspecific (abnormal) findings on radiological and other examination of genitourinary organs Abnormal uterine bleeding Unspecified disorder of menstruation and other abnormal bleeding from female genital tract [facility] Diagnosis Abnormal uterine bleeding due to endometrial polyp- Primary [facility]* Diagnosis Abnormal uterine bleeding (AUB)- Primary Endometrial polyp Polyp of corpus uteri Pre-op exam Preoperative examination, unspecified [facility]* Diagnosis Sore throat- Primary Acute pharyngitis Acute otitis media, left Unspecified otitis media [facility]* Diagnosis Anxiety and depression- Primary Dysthymic disorder Vitamin D deficiency Unspecified vitamin D deficiency Polyp of corpus uteri History of back pain Personal history of other musculoskeletal disorders Encounter for long-term current use of medication [facility]* Diagnosis Anxiety attack Panic disorder without agoraphobia [facility]* Diagnosis Routine medical exam- Primary Routine general medical examination at a health care facility Other non-recurrent acute nonsuppurative otitis media of right ear Acute non-recurrent maxillary sinusitis Anxiety attack Panic disorder without agoraphobia Anxiety and depression Dysthymic disorder Class 2 obesity due to excess calories without serious comorbidity with body mass index (BMI) of 37.0 to 37.9 in adult Vitamin D deficiency Unspecified vitamin D deficiency Gastroesophageal reflux disease, unspecified whether esophagitis present Mild obstructive sleep apnea Obstructive sleep apnea (adult) (pediatric) [facility]* Diagnosis Viral gastroenteritis- Primary Intestinal infection due to other organism, not elsewhere classified Near syncope Syncope and collapse [facility] instructions Additional Instructions Please call if the NURSING INSTRUCTOR office this morning and they will schedule you for an inpatient evaluation later today. They also will most likely start you on medication to help reduce the amount of bleeding and perform/order an ultrasound if needed. Return to the ER should you have any further concernsWMer[facility] Work Phone: Reason for referral (narrative)* Diagnostic Procedure Only (Routine) - Pending Review Specialty Diagnoses / Procedures Referred By Giselle pulido Referred To Contact [facility] Diagnoses Other fatigue HELDER (obstructive sleep apnea) Class 2 obesity with body mass index (BMI) of 37.0 to 37.9 in adult, unspecified obesity type, unspecified whether serious comorbidity present Procedures HOME SLEEP APNEA TEST (HSAT) SLEEP STD AIRFLOW HRT RATE&O2 SAT EFFORT UNATT Cassi Riley APRN.CNP [address] [place] [address] [place] [address] Referral ID Status Reason Start Date Expiration Date Visits Requested Visits Authorized [id number] Pending Review Auto-Generat ed Referral 07/12/2022 07/12/2023 1 1 [facility] for referral (narrative)* Outpatient Procedure (Routine) - Pending Review Specialty Diagnoses / Procedures Referred By Giselle pulido Referred To Contact [facility] Diagnoses General counseling and advice for contraceptive management Procedures INSERT INTRAUTERINE DEVICE LEVONORGESTREL IU 52MG 5 YR INSERT INTRAUTERINE DEVICE Adriana Clark APRN.AIR DEFENCE OFFICER [address] [place] [address] [place] [address] Referral ID Status Reason Start Date Expiration Date Visits Requested Visits Authorized [id number] Pending Review Auto-Generat ed Referral 08/18/2022 08/18/2023 1 1 [facility] for visit Narrative* Diagnostic Procedure Only (Routine) - Closed Specialty Diagnoses / Procedures Referred By Giselle t Referred To Contact [facility] Diagnoses Numbness and tingling of lower extremity Chronic midline low back pain with left-sided sciatica Procedures XR LUMBAR MOTION 4V AP/LAT/ FLEX/EXT RADEX SPINE LUMBOSACRAL MINIMUM 4 VIEWS Hung Rivero MD [address] [place] [address] Phone: tel: fax: [place] [id number] Referral ID Status Reason Start Date Expiration Date V isits Requested Visits Authorized [id number] Closed Auto-Generate d Referral 04/19/2024 05/19/2025 1 1 [facility] for visit Narrative* Diagnostic Procedure Only (Routine) - Closed Specialty Diagnoses / Procedures Referred By Contac t Referred To Contact [facility] Diagnoses Abnormal uterine bleeding Procedures PELVIC US WHI US PELVIC NONOBSTETRIC REAL-TIME IMAGE COMPLETE Adriana Clark APRN.AIR DEFENCE OFFICER [address] [place] [address] Phone: tel: fax: [facility] [address] [place] [address] Referral ID Status Reason Start Date Expiration Date V isits Requested Visits Authorized [id number] Closed Auto-Generate d Referral 05/16/2024 05/16/2025 1 1 [facility] Concerns Infection Onset Date Last Indicated Resolved Time COVID-19 Rule-Out 06/24/2021 06/24/2021 Infection Onset Date Last Indicated Resolved Time COVID-19 Rule-Out 06/24/2021 06/24/2021 06/25/2021 7:32 AM EDT COVID-19 Confirmed 06/24/2021 06/24/2021 Infection Onset Date Last Indicated Resolved Time COVID-19 Confirmed 06/24/2021 06/24/2021 Infection Onset Date Last Indicated Resolved Time COVID-19 Rule-Out 06/24/2021 06/24/2021 06/25/2021 7:32 AM EDT COVID-19 Confirmed 06/24/2021 06/24/2021 8:51 PM EDT Infection Onset Date Last Indicated Resolved Time COVID-19 Rule-Out 09/23/2022 09/23/2022 Reason for Referral Specialty Diagnoses / Procedures Referred By Contac t Referred To Contact Gastroenterology Diagnoses Right upper quadrant abdominal tenderness without rebound tenderness Nausea Diarrhea, unspecified type Procedures CONSULT TO GASTROENTEROLOGY OFFICE/OUTPATIENT [facility] 60-74 MINUTES Shefali Carvajal, DEPARTMENT HEAD.DATABASE TECHNICIAN [address] [place] [address] Referral ID Status Reason Start Date Expiration Date V isits Requested Visits Authorized [id number] Closed PCP Requested Referral 04/15/2021 04/15/2022 1 1 Specialty Diagnoses / Procedures Referred By Contac t Referred To Contact Nutrition Diagnoses Class 2 obesity with body mass index (BMI) of 37.0 to 37.9 in adult, unspecified obesity type, unspecified whether serious comorbidity present Procedures CONSULT TO NUTRITION THERAPY OFFICE/OUTPATIENT [facility] 60-74 MINUTES Shefali Carvajal, DEPARTMENT HEAD.DATABASE TECHNICIAN [address] [place] [address] Referral ID Status Reason Start Date Expiration Date Visits Requested Visits Authorized [id number] Authorized PCP Requested Referral 08/05/2021 08/05/2022 1 1 Specialty Diagnoses / Procedures Referred By Contac t Referred To Contact [facility] Diagnoses Depression, unspecified depression type Class 2 obesity without serious comorbidity with body mass index (BMI) of 39.0 to 39.9 in adult, unspecified obesity type Dyslipidemia Anxiety Vitamin D deficiency Procedures CONSULT TO NUTRITION THERAPY Adriana Clark, DEPARTMENT HEAD.AIR DEFENCE OFFICER [address] [place] [place] [address] Referral ID Status Reason Start Date Expiration Date Visits Requested Visits Authorized [id number] Ref Not Required PCP Requested Referral 3 11/16/2023 1 1 Specialty Diagnoses / Procedures Referred By Contac t Referred To Contact [facility] Diagnoses Vaginal discomfort Procedures CONSULT TO PHYSICAL THERAPY PHYSICAL THERAPY EVALUATION HIGH COMPLEX 45 MINS Sophie Arora MD [address] [place] [address] [facility] [address] [place] [address] Referral ID Status Reason Start Date Expiration Date Visits Requested Visits Authorized [id number] Pending Review Auto-Generat ed Referral 06/22/2023 06/21/2024 1 1 Medications Administered Section Inactive Administered Medications - up to 3 most recent administrations Medication Order MAR Action Action Date Dose Rate Site keTORolac 60 mg injection (TORADOL) 60 mg, INTRAMUSCULAR, ONCE, 1 dose, On 10/21/21 at 0830, Ketorolac (Toradol) is indicated for the short-term (up to 5 days) management of moderately severe acute pain. Continuation of ketorolac (Toradol) beyond 5 days increases the risk of developing serious adverse events. Please verify the duration of therapy for ketorolac (Toradol)., If ordered PRN for pain, patient/guardian may elect to receive this medication for higher pain levels INSTEAD of the opioid, if preferred: Yes Given 10/21/2021 8:24 AM EDT 60 mg Buttocks, Right Inactive Administered Medications - up to 3 most recent administrations Medication Order MAR Action Action Date Dose Rate Site keTORolac 60 mg injection (TORADOL) 60 mg, INTRAMUSCULAR, ONCE, 1 dose, On Dipika 02/02/22 at 1230, Ketorolac (Toradol) is indicated for the short-term (up to 5 days) management of moderately severe acute pain. Continuation of ketorolac (Toradol) beyond 5 days increases the risk of developing serious adverse events. Please verify the duration of therapy for ketorolac (Toradol)., If ordered PRN for pain, patient/guardian may elect to receive this medication for higher pain levels INSTEAD of the opioid, if preferred: Yes Given 02/02/2022 12:14 PM EST 60 mg Buttocks, Right Inactive Administered Medications - up to 3 most recent administrations Medication Order MAR Action Action Date Dose Rate Site keTORolac 60 mg injection (Toradol) 60 mg, INTRAMUSCULAR, ONCE, 1 dose, On 09/23/22 at 1430, Ketorolac (Toradol) is indicated for the short-term (up to 5 days) management of moderately severe acute pain. Continuation of ketorolac (Toradol) beyond 5 days increases the risk of developing serious adverse events. Please verify the duration of therapy for ketorolac (Toradol)., If ordered PRN for pain, patient/guardian may elect to receive this medication for higher pain levels INSTEAD of the opioid, if preferred: Yes Given 09/23/2022 3:01 PM EDT 60 mg Buttocks, Right Inactive Administered Medications - up to 3 most recent administrations Medication Order MAR Action Action Date Dose Rate Site triamcinolone acetonide 40 mg injection (KeNALog 40) 40 mg, INTRAMUSCULAR, ONCE, 1 dose, On Sun12/20/22 at 1330 Given 12/20/2022 1:18 PM EST 40 mg Buttocks, Right Chief Complaint and Reason for Visit Chief Complaint n/v/d Chief Complaint n/v/d DIET COUNS & SURV, OBESITY DIET COUNS & SURV, OBESITY Chief Complaint n/v/d DIET COUNS & SURV, OBESITY DIET COUNS & SURV, OBESITY DIET COUNS & SURV, OBESITY Chief Complaint DIET COUNS & SURV, O BESITY DIET COUNS & SURV, OBESITY DIET COUNS & SURV, OBESITY DIET COUNS & SURV, OBESITY Chief Complaint Admit Date vag bleed May 16, 2024 1:2 0am Chief Complaint Admit Date vag bleed May 16, 2024 1:2 0am Hysteroscopy,D&C, polypectomy, Symphion, Liletta I May 23, 2024 5:39am Family History No Family History Records Found Relationship Condition Age at Onset Recorded Date/T olga Not Specified Malignant neoplasm of breast Unknown Hypertension Unknown Advance Directives No Advanced Directives Records Found Advance Directive Response Recorded Date/ Time Living Will No January 21, 2 023 6:57pm Power of Electrical Technician Instructor No January 21, 2023 6:57pm Advance Directive Response Recorded Date/ Time Living Will No January 21, 023 7:57pm Power of Electrical Technician Instructor No January 21, 2023 7:57pm Advance Directive Response Recorded Date/ Time Living Will No May 16, 2024 1:23am Do you have a Healthcare Power of Electrical Technician Instructor? No May 16, 2024 1:23am Advance Directive Response Recorded Date/ Time Living Will No May 16, 2024 1:23am Do you have a Healthcare Power of Electrical Technician Instructor? No May 16, 2024 1:23am Living Will Yes May 22, 2024 8:54am Do you have a Healthcare Power of Electrical Technician Instructor? Yes May 22, 2024 8:54am Name of Medical Power of Electrical Technician Instructor SPOUSE May 22, 2024 8:54am Summary Purpose Additional Source Comments Source Comments (unrecognize d section and content) In the event this informatio n is protected by the [facility] Confidentiality of Alcohol and Drug Abuse Patient Records regulations: The Federal rules restrict any use of the information to criminally investigate or prosecute any alcohol or drug abuse patient.[facility] the event this information is protected by the Federal Confidentiality of Alcohol and Drug Abuse Patient Records regulations: The Federal rules restrict any use of the information to criminally investigate or prosecute any alcohol or drug abuse patient.[facility] the event this information is protected by the Federal Confidentiality of Alcohol and Drug Abuse Patient Records regulations: The Federal rules restrict any use of the information to criminally investigate or prosecute any alcohol or drug abuse patient.[facility] the event this information is protected by the Federal Confidentiality of Alcohol and Drug Abuse Patient Records regulations: The Federal rules restrict any use of the information to criminally investigate or prosecute any alcohol or drug abuse patient.[facility] the event this information is protected by the Federal Confidentiality of Alcohol and Drug Abuse Patient Records regulations: The Federal rules restrict any use of the information to criminally investigate or prosecute any alcohol or drug abuse patient.[facility] the event this information is protected by the Federal Confidentiality of Alcohol and Drug Abuse Patient Records regulations: The Federal rules restrict any use of the information to criminally investigate or prosecute any alcohol or drug abuse patient.[facility] the event this information is protected by the Federal Confidentiality of Alcohol and Drug Abuse Patient Records regulations: The Federal rules restrict any use of the information to criminally investigate or prosecute any alcohol or drug abuse patient.[facility] the event this information is protected by the Federal Confidentiality of Alcohol and Drug Abuse Patient Records regulations: The Federal rules restrict any use of the information to criminally investigate or prosecute any alcohol or drug abuse patient.[facility] the event this information is protected by the Federal Confidentiality of Alcohol and Drug Abuse Patient Records regulations: The Federal rules restrict any use of the information to criminally investigate or prosecute any alcohol or drug abuse patient.[facility] the event this information is protected by the Federal Confidentiality of Alcohol and Drug Abuse Patient Records regulations: The Federal rules restrict any use of the information to criminally investigate or prosecute any alcohol or drug abuse patient.[facility] the event this information is protected by the Federal Confidentiality of Alcohol and Drug Abuse Patient Records regulations: The Federal rules restrict any use of the information to criminally investigate or prosecute any alcohol or drug abuse patient.[facility] the event this information is protected by the Federal Confidentiality of Alcohol and Drug Abuse Patient Records regulations: The Federal rules restrict any use of the information to criminally investigate or prosecute any alcohol or drug abuse patient.[place]ervilleIn the event this information is protected by the Federal Confidentiality of Alcohol and Drug Abuse Patient Records regulations: The Federal rules restrict any use of the information to criminally investigate or prosecute any alcohol or drug abuse patient.[place]In the event this information is protected by the Federal Confidentiality of Alcohol and Drug Abuse Patient Records regulations: The Federal rules restrict any use of the information to criminally investigate or prosecute any alcohol or drug abuse patient.[place]In the event this information is protected by the Federal Confidentiality of Alcohol and Drug Abuse Patient Records regulations: The Federal rules restrict any use of the information to criminally investigate or prosecute any alcohol or drug abuse patient.[place]In the event this information is protected by the Federal Confidentiality of Alcohol and Drug Abuse Patient Records regulations: The Federal rules restrict any use of the information to criminally investigate or prosecute any alcohol or drug abuse patient.[place]In the event this information is protected by the Federal Confidentiality of Alcohol and Drug Abuse Patient Records regulations: The Federal rules restrict any use of the information to criminally investigate or prosecute any alcohol or drug abuse patient.[place]In the event this information is protected by the Federal Confidentiality of Alcohol and Drug Abuse Patient Records regulations: The Federal rules restrict any use of the information to criminally investigate or prosecute any alcohol or drug abuse patient.[place]In the event this information is protected by the Federal Confidentiality of Alcohol and Drug Abuse Patient Records regulations: The Federal rules restrict any use of the information to criminally investigate or prosecute any alcohol or drug abuse patient.[place]In the event this information is protected by the Federal Confidentiality of Alcohol and Drug Abuse Patient Records regulations: The Federal rules restrict any use of the information to criminally investigate or prosecute any alcohol or drug abuse patient.[place]In the event this information is protected by the Federal Confidentiality of Alcohol and Drug Abuse Patient Records regulations: The Federal rules restrict any use of the information to criminally investigate or prosecute any alcohol or drug abuse patient.[place]In the event this information is protected by the Federal Confidentiality of Alcohol and Drug Abuse Patient Records regulations: The Federal rules restrict any use of the information to criminally investigate or prosecute any alcohol or drug abuse patient.[place]In the event this information is protected by the Federal Confidentiality of Alcohol and Drug Abuse Patient Records regulations: The Federal rules restrict any use of the information to criminally investigate or prosecute any alcohol or drug abuse patient.[place]In the event this information is protected by the Federal Confidentiality of Alcohol and Drug Abuse Patient Records regulations: The Federal rules restrict any use of the information to criminally investigate or prosecute any alcohol or drug abuse patient.[place]In the event this information is protected by the Federal Confidentiality of Alcohol and Drug Abuse Patient Records regulations: The Federal rules restrict any use of the information to criminally investigate or prosecute any alcohol or drug abuse patient.[place]In the event this information is protected by the Federal Confidentiality of Alcohol and Drug Abuse Patient Records regulations: The Federal rules restrict any use of the information to criminally investigate or prosecute any alcohol or drug abuse patient.[place]In the event this information is protected by the Federal Confidentiality of Alcohol and Drug Abuse Patient Records regulations: The Federal rules restrict any use of the information to criminally investigate or prosecute any alcohol or drug abuse patient.[place]In the event this information is protected by the Federal Confidentiality of Alcohol and Drug Abuse Patient Records regulations: The Federal rules restrict any use of the information to criminally investigate or prosecute any alcohol or drug abuse patient.[place]In the event this information is protected by the Federal Confidentiality of Alcohol and Drug Abuse Patient Records regulations: The Federal rules restrict any use of the information to criminally investigate or prosecute any alcohol or drug abuse patient.[place]In the event this information is protected by the Federal Confidentiality of Alcohol and Drug Abuse Patient Records regulations: The Federal rules restrict any use of the information to criminally investigate or prosecute any alcohol or drug abuse patient.[place]In the event this information is protected by the Federal Confidentiality of Alcohol and Drug Abuse Patient Records regulations: The Federal rules restrict any use of the information to criminally investigate or prosecute any alcohol or drug abuse patient.[place]In the event this information is protected by the Federal Confidentiality of Alcohol and Drug Abuse Patient Records regulations: The Federal rules restrict any use of the information to criminally investigate or prosecute any alcohol or drug abuse patient.[place]In the event this information is protected by the Federal Confidentiality of Alcohol and Drug Abuse Patient Records regulations: The Federal rules restrict any use of the information to criminally investigate or prosecute any alcohol or drug abuse patient.[place]In the event this information is protected by the Federal Confidentiality of Alcohol and Drug Abuse Patient Records regulations: The Federal rules restrict any use of the information to criminally investigate or prosecute any alcohol or drug abuse patient.[place]In the event this information is protected by the Federal Confidentiality of Alcohol and Drug Abuse Patient Records regulations: The Federal rules restrict any use of the information to criminally investigate or prosecute any alcohol or drug abuse patient.[place]In the event this information is protected by the Federal Confidentiality of Alcohol and Drug Abuse Patient Records regulations: The Federal rules restrict any use of the information to criminally investigate or prosecute any alcohol or drug abuse patient.[place]In the event this information is protected by the Federal Confidentiality of Alcohol and Drug Abuse Patient Records regulations: The Federal rules restrict any use of the information to criminally investigate or prosecute any alcohol or drug abuse patient.[place]In the event this information is protected by the Federal Confidentiality of Alcohol and Drug Abuse Patient Records regulations: The Federal rules restrict any use of the information to criminally investigate or prosecute any alcohol or drug abuse patient.[place]In the event this information is protected by the Federal Confidentiality of Alcohol and Drug Abuse Patient Records regulations: The Federal rules restrict any use of the information to criminally investigate or prosecute any alcohol or drug abuse patient.[place]In the event this information is protected by the Federal Confidentiality of Alcohol and Drug Abuse Patient Records regulations: The Federal rules restrict any use of the information to criminally investigate or prosecute any alcohol or drug abuse patient.[place]In the event this information is protected by the Federal Confidentiality of Alcohol and Drug Abuse Patient Records regulations: The Federal rules restrict any use of the information to criminally investigate or prosecute any alcohol or drug abuse patient.[place]In the event this information is protected by the Federal Confidentiality of Alcohol and Drug Abuse Patient Records regulations: The Federal rules restrict any use of the information to criminally investigate or prosecute any alcohol or drug abuse patient.[place]In the event this information is protected by the Federal Confidentiality of Alcohol and Drug Abuse Patient Records regulations: The Federal rules restrict any use of the information to criminally investigate or prosecute any alcohol or drug abuse patient.[place]In the event this information is protected by the Federal Confidentiality of Alcohol and Drug Abuse Patient Records regulations: The Federal rules restrict any use of the information to criminally investigate or prosecute any alcohol or drug abuse patient.[place]In the event this information is protected by the Federal Confidentiality of Alcohol and Drug Abuse Patient Records regulations: The Federal rules restrict any use of the information to criminally investigate or prosecute any alcohol or drug abuse patient.[place]In the event this information is protected by the Federal Confidentiality of Alcohol and Drug Abuse Patient Records regulations: The Federal rules restrict any use of the information to criminally investigate or prosecute any alcohol or drug abuse patient.[place]In the event this information is protected by the Federal Confidentiality of Alcohol and Drug Abuse Patient Records regulations: The Federal rules restrict any use of the information to criminally investigate or prosecute any alcohol or drug abuse patient.[place]In the event this information is protected by the Federal Confidentiality of Alcohol and Drug Abuse Patient Records regulations: The Federal rules restrict any use of the information to criminally investigate or prosecute any alcohol or drug abuse patient.[place]In the event this information is protected by the Federal Confidentiality of Alcohol and Drug Abuse Patient Records regulations: The Federal rules restrict any use of the information to criminally investigate or prosecute any alcohol or drug abuse patient.[place]In the event this information is protected by the Federal Confidentiality of Alcohol and Drug Abuse Patient Records regulations: The Federal rules restrict any use of the information to criminally investigate or prosecute any alcohol or drug abuse patient.[place]In the event this information is protected by the Federal Confidentiality of Alcohol and Drug Abuse Patient Records regulations: The Federal rules restrict any use of the information to criminally investigate or prosecute any alcohol or drug abuse patient.[facility] the event this information is protected by the Federal Confidentiality of Alcohol and Drug Abuse Patient Records regulations: The Federal rules restrict any use of the information to criminally investigate or prosecute any alcohol or drug abuse patient.[place]In the event this information is protected by the Federal Confidentiality of Alcohol and Drug Abuse Patient Records regulations: The Federal rules restrict any use of the information to criminally investigate or prosecute any alcohol or drug abuse patient.[place]In the event this information is protected by the Federal Confidentiality of Alcohol and Drug Abuse Patient Records regulations: The Federal rules restrict any use of the information to criminally investigate or prosecute any alcohol or drug abuse patient.[facility] ClinicIn the event this information is protected by the Federal Confidentiality of Alcohol and Drug Abuse Patient Records regulations: The Federal rules restrict any use of the information to criminally investigate or prosecute any alcohol or drug abuse patient.[place]In the event this information is protected by the Federal Confidentiality of Alcohol and Drug Abuse Patient Records regulations: The Federal rules restrict any use of the information to criminally investigate or prosecute any alcohol or drug abuse patient.[place]In the event this information is protected by the Federal Confidentiality of Alcohol and Drug Abuse Patient Records regulations: The Federal rules restrict any use of the information to criminally investigate or prosecute any alcohol or drug abuse patient.[place]In the event this information is protected by the Federal Confidentiality of Alcohol and Drug Abuse Patient Records regulations: The Federal rules restrict any use of the information to criminally investigate or prosecute any alcohol or drug abuse patient.[place]In the event this information is protected by the Federal Confidentiality of Alcohol and Drug Abuse Patient Records regulations: The Federal rules restrict any use of the information to criminally investigate or prosecute any alcohol or drug abuse patient.[place]In the event this information is protected by the Federal Confidentiality of Alcohol and Drug Abuse Patient Records regulations: The Federal rules restrict any use of the information to criminally investigate or prosecute any alcohol or drug abuse patient.[place]In the event this information is protected by the Federal Confidentiality of Alcohol and Drug Abuse Patient Records regulations: The Federal rules restrict any use of the information to criminally investigate or prosecute any alcohol or drug abuse patient.[place]In the event this information is protected by the Federal Confidentiality of Alcohol and Drug Abuse Patient Records regulations: The Federal rules restrict any use of the information to criminally investigate or prosecute any alcohol or drug abuse patient.[place]In the event this information is protected by the Federal Confidentiality of Alcohol and Drug Abuse Patient Records regulations: The Federal rules restrict any use of the information to criminally investigate or prosecute any alcohol or drug abuse patient.[place]In the event this information is protected by the Federal Confidentiality of Alcohol and Drug Abuse Patient Records regulations: The Federal rules restrict any use of the information to criminally investigate or prosecute any alcohol or drug abuse patient.[place]In the event this information is protected by the Federal Confidentiality of Alcohol and Drug Abuse Patient Records regulations: The Federal rules restrict any use of the information to criminally investigate or prosecute any alcohol or drug abuse patient.[place]In the event this information is protected by the Federal Confidentiality of Alcohol and Drug Abuse Patient Records regulations: The Federal rules restrict any use of the information to criminally investigate or prosecute any alcohol or drug abuse patient.[place]In the event this information is protected by the Federal Confidentiality of Alcohol and Drug Abuse Patient Records regulations: The Federal rules restrict any use of the information to criminally investigate or prosecute any alcohol or drug abuse patient.[place]In the event this information is protected by the Federal Confidentiality of Alcohol and Drug Abuse Patient Records regulations: The Federal rules restrict any use of the information to criminally investigate or prosecute any alcohol or drug abuse patient.[place]In the event this information is protected by the Federal Confidentiality of Alcohol and Drug Abuse Patient Records regulations: The Federal rules restrict any use of the information to criminally investigate or prosecute any alcohol or drug abuse patient.[place]In the event this information is protected by the Federal Confidentiality of Alcohol and Drug Abuse Patient Records regulations: The Federal rules restrict any use of the information to criminally investigate or prosecute any alcohol or drug abuse patient.[place]In the event this information is protected by the Federal Confidentiality of Alcohol and Drug Abuse Patient Records regulations: The Federal rules restrict any use of the information to criminally investigate or prosecute any alcohol or drug abuse patient.[place]In the event this information is protected by the Federal Confidentiality of Alcohol and Drug Abuse Patient Records regulations: The Federal rules restrict any use of the information to criminally investigate or prosecute any alcohol or drug abuse patient.[place]In the event this information is protected by the Federal Confidentiality of Alcohol and Drug Abuse Patient Records regulations: The Federal rules restrict any use of the information to criminally investigate or prosecute any alcohol or drug abuse patient.[place]In the event this information is protected by the Federal Confidentiality of Alcohol and Drug Abuse Patient Records regulations: The Federal rules restrict any use of the information to criminally investigate or prosecute any alcohol or drug abuse patient.[place] Reason for Visit (unrecogniz ed section and content) Reason Comments Nasal Congestion Pt denied chest pain , SOB Reason Comments Sore Throat Reason Comments Cough cough x 4 weeks Reason Comments AUB Reason Comments labial cyst Reason Comments Lab Orders Reason Comments Cough cough, bodyaches, an d exposure x 1 day Reason Comments Covid19 Concern Reason Comments Appointment Cancelled Reason Comments Patient Question Reason Comments Cough cough and chest catia estion-wheezing x several weeks Reason Comments Patient Request: GI Referral Reason Comments Wheezing Reason Comments Patient Education \ Assessment Specialty Diagnoses / Procedures Referred By Giselle t Referred To Contact Nutrition Diagnoses Class 2 obesity with body mass index (BMI) of 37.0 to 37.9 in adult, unspecified obesity type, unspecified whether serious comorbidity present Procedures CONSULT TO NUTRITION THERAPY OFFICE/OUTPATIENT [employer] [facility] [employer] HIGH MDM 60-74 MINUTES Shefali Carvajal, DEPARTMENT HEAD.DATABASE TECHNICIAN [address] [place] [address] Referral ID Status Reason Start Date Expiration Date V isits Requested Visits Authorized [id number] Closed PCP Requested Referral 08/05/2021 08/05/2022 1 1 Reason Comments Physical Reason Comments Headache Migraines, late Sund night and has returned Reason Onset Date Comments urgent care f/u Migraines Immunizations 10/21/2021 Flu vaccination Reason Comments Back Pain Reason Comments Upper Respiratory Infection Reason Comments Pain, Throat Pt presented throat pain rated 7, x4 days. Reason Comments Anxiety Reason Comments Recheck follow up of Express Care visit on line for panic attacks.Question if medication can be changed Sleep Problem is interested in a s leep study Reason Comments Recheck medication for anxie ty Reason Comments Medication Problem Reason Comments Discussion Reason Comments Sore Throat chills, fever, bodya ches x last night, fatigue x 1 week Reason Comments Yearly Exam Reason Comments Recheck Reason Onset Date Comments Weight Management 11/16/2022 Reason Comments Rash Left upper arm swell ing, redness, warm since this AM Reason Comments Rash Itchiness of Left up per arm Reason Comments Weight Management Follow up Reason Comments Rash Reason Comments Patient Update Patient Question Reason Onset Date Comments Medication Request 01/24/2023 Reason Onset Date Comments Refill Request 06/01/2023 Reason Comments Follow Up Prolapse is worsenin g Reason Onset Date Comments Refill Request 07/31/2023 Reason Comments Cough Reason Comments Same Day Appointment tail bone issues an d hand and feet numbness Reason Comments Appointment Reason Comments Cold Reason Comments Irregular Menstrual Cycle Reason Comments F/U 6 months leg numbness Reason Comments Vaginal Bleeding Reason Comments Patient Update Reason Comments ED Follow-up Reason Comments Earache Entered by patient Ear Pain Left ear pain x 1 da y Reason Comments Recheck 4 week numbness, had sleep test, xrays Reason Onset Date Comments Refill Request 08/27/2024 Reason Comments Yearly Exam ear infection bilate ral, tx'd x 1 week ago with Amoxicillin Reason Comments Fever body aches near syncope Care Teams (unrecognized sec tion and content) Health Unit Supervisor Relationship Specialty Start Date End Date Hung Rivero MD [facility] [place] [address] PCP - General 04/02/02 Health Unit Supervisor Relationship Specialty Start Date End Date Hung Rivero MD [address] [place] [id number] PCP - General 04/02/02 Health Unit Supervisor Relationship Specialty Start Date End Date Hung Rivero MD [facility] [place] [address] PCP - General 04/02/02 Health Unit Supervisor Relationship Specialty Start Date End Date Hung Rivero MD [address] [place] [id number] PCP - General 04/02/02 Health Unit Supervisor Relationship Specialty Start Date End Date Hung Rivero MD [address] [place] [id number] PCP - General 04/02/02 Health Unit Supervisor Relationship Specialty Start Date End Date Hung Rivero MD [address] [facility] [place] [address] PCP - General 04/02/02 Health Unit Supervisor Relationship Specialty Start Date End Date Hung Rivero MD [address] [facility] [place] [address] PCP - General 04/02/02 Health Unit Supervisor Relationship Specialty Start Date End Date Hung Rivero MD [address] [facility] [place] [address] PCP - General 04/02/02 Health Unit Supervisor Relationship Specialty Start Date End Date Hung Rivero MD [address] [facility] [place] [address] PCP - General 04/02/02 Health Unit Supervisor Relationship Specialty Start Date End Date Hung Rivero MD [address] [facility] [place] [address] PCP - General 04/02/02 Health Unit Supervisor Relationship Specialty Start Date End Date Hung Rivero MD [address] [facility] [place] [address] PCP - General 04/02/02 Health Unit Supervisor Relationship Specialty Start Date End Date Hung Rivero MD [address] [facility] [place] [address] PCP - General 04/02/02 Health Unit Supervisor Relationship Specialty Start Date End Date Hung Rivero MD [address] [facility] [place] [address] PCP - General 04/02/02 Health Unit Supervisor Relationship Specialty Start Date End Date Hung Rivero MD [address] [place] [address], [place] [address] PCP - General 04/02/02 Health Unit Supervisor Relationship Specialty Start Date End Date Hung Rivero MD [address] [place] [address] PCP - General 04/02/02 Health Unit Supervisor Relationship Specialty Start Date End Date Hung Rivero MD [address] [place] [address] PCP - General 04/02/02 Health Unit Supervisor Relationship Specialty Start Date End Date Hung Rivero MD [address] [place] [address] PCP - General 04/02/02 Health Unit Supervisor Relationship Specialty Start Date End Date Hung Rivero MD [address] [place] [address] PCP - General 04/02/02 Health Unit Supervisor Relationship Specialty Start Date End Date Hung Rivero MD [address] [place] [address] PCP - General 04/02/02 Health Unit Supervisor Relationship Specialty Start Date End Date Hung Rivero MD [address] [place] [address] PCP - General 04/02/02 Health Unit Supervisor Relationship Specialty Start Date End Date Hung Rivero MD [address] [place] [address] PCP - General 04/02/02 Health Unit Supervisor Relationship Specialty Start Date End Date Hung Rivero MD [address] [place] [address] PCP - General 04/02/02 Health Unit Supervisor Relationship Specialty Start Date End Date Hung Rivero MD [address] [place] [address] PCP - General 04/02/02 Health Unit Supervisor Relationship Specialty Start Date End Date Hung Rivero MD [address] [place] [address] PCP - General 04/02/02 Health Unit Supervisor Relationship Specialty Start Date End Date Hung Rivero MD [address] [place] [address] PCP - General 04/02/02 Health Unit Supervisor Relationship Specialty Start Date End Date Hung Rivero MD [address] [place] [address] PCP - General 04/02/02 Health Unit Supervisor Relationship Specialty Start Date End Date Hung Rivero MD [address] [place] [address] PCP - General 04/02/02 Health Unit Supervisor Relationship Specialty Start Date End Date Hung Rivero MD [address] [place] [address] PCP - General 04/02/02 Team Status: Active Member Role Status Dates Dr. Hung Rivero MD Family Provider Active Dr. Hung Rivero MD Primary Care Provider Active Team Status: Inactive Member Role Status Dates Dr. Hung Rivero MD Primary Care Provider Active Dr. Elliott Hebert DO Emergency Provider Active Team Status: Inactive Member Role Status Dates Dr. Hung Rivero MD Primary Care Provider Active Adriana Clark FOLDER SEAMER, FOLDER SEAMER-C Attending Provider, Referring Pro vider Active Team Status: Inactive Member Role Status Dates Dr. Hung Rivero MD Primary Care Provider Active Dr. Elliott Hebert DO Attending Provider, Emergency Provider Active Health Unit Supervisor Relationship Specialty Start Date End Date Hung Rivero MD [address] [place] [address] PCP - General 04/02/02 Health Unit Supervisor Relationship Specialty Start Date End Date Hung Rivero MD [address] [place] [address] PCP - General 04/02/02 Health Unit Supervisor Relationship Specialty Start Date End Date Hung Rivero MD [address] [place] [address] PCP - General 04/02/02 Shefali Carvajal, DEPARTMENT HEAD.DATABASE TECHNICIAN [address] [place] [address] Deputy Sheriff Building [employer] Internal Medicine 01/14/24 Cassi Riley DEPARTMENT HEAD.AIR DEFENCE OFFICER [address] [place] [address] Deputy Sheriff Building [employer] Internal Medicine 01/14/24 Health Unit Supervisor Relationship Specialty Start Date End Date Hung Rivero MD [address] [place] [address] PCP - General 04/02/02 Shefali Carvajal DEPARTMENT HEAD.DATABASE TECHNICIAN [address] [place] [address] Deputy Sheriff Building [employer] Internal Medicine 01/14/24 Cassi Riley APRN.AIR DEFENCE OFFICER [facility] [place] [address] Deputy Sheriff Building Guard Internal Medicine 01/14/24 Health Unit Supervisor Relationship Specialty Start Date End Date Hung Rivero MD [address] [place] [address] PCP - General 04/02/02 Shefali Carvajal, DEPARTMENT HEAD.DATABASE TECHNICIAN [address] [place] [address] Deputy Sheriff Building Guard Internal Medicine 01/14/24 Cassi Riley DEPARTMENT HEAD.AIR DEFENCE OFFICER [address] [facility] [address] [facility] Internal Medicine 01/14/24 Health Unit Supervisor Relationship Specialty Start Date End Date Hung Rivero MD [address] [facility] [address] PCP - General 04/02/02 Shefali Carvajal, DEPARTMENT HEAD.DATABASE TECHNICIAN [address] [facility] [address] Deputy Sheriff Building Guard Internal Medicine 01/14/24 Cassi Riley DEPARTMENT HEAD.AIR DEFENCE OFFICER [address] [place] [address] [facility] Internal Medicine 01/14/24 Health Unit Supervisor Relationship Specialty Start Date End Date Hung Rivero MD [address] [facility] [address] PCP - General 04/02/02 Shefali Carvajal, DEPARTMENT HEAD.DATABASE TECHNICIAN [address] [facility] [address] Deputy Sheriff Building Guard Internal Medicine 01/14/24 Cassi Riley DEPARTMENT HEAD.AIR DEFENCE OFFICER [address] [facility] [place] [address] [facility] Internal Medicine 01/14/24 Health Unit Supervisor Relationship Specialty Start Date End Date Hung Rivero MD [address] [facility] [place] [address] PCP - General 04/02/02 Shefali Carvajal, DEPARTMENT HEAD.DATABASE TECHNICIAN [address] [facility] [place] [address] Deputy Sheriff Building Guard Internal Medicine 01/14/24 Cassi Riley DEPARTMENT HEAD.AIR DEFENCE OFFICER [address] [facility] [place] [address] [facility] Internal Medicine 01/14/24 Health Unit Supervisor Relationship Specialty Start Date End Date Hung Rivero MD [address] [facility] [place] [address] PCP - General 04/02/02 Shefali Carvajal, DEPARTMENT HEAD.DATABASE TECHNICIAN [address] [facility] [place] [address] [facility] Internal Medicine 01/14/24 Cassi Riley DEPARTMENT HEAD.AIR DEFENCE OFFICER [address] [facility] [place] [address] [facility] Internal Medicine 01/14/24 Health Unit Supervisor Relationship Specialty Start Date End Date Hung Rivero MD [address] [facility] [place] [address] PCP - General 04/02/02 Shefali Carvajal, DEPARTMENT HEAD.DATABASE TECHNICIAN [address] [facility] [place] [address] Deputy Sheriff Building Guard Internal Medicine 01/14/24 Cassi Riley APRN.AIR DEFENCE OFFICER [address] [facility] [place] [address] Deputy Sheriff Building [employer] Internal Medicine 01/14/24 Health Unit Supervisor Relationship Specialty Start Date End Date Hung Rivero MD [address] [place] [address] PCP - General 04/02/02 Shefali Carvajal, DEPARTMENT HEAD.DATABASE TECHNICIAN [address] [place] [address] Deputy Sheriff Building [employer] Internal Medicine 01/14/24 Cassi Riley DEPARTMENT HEAD.AIR DEFENCE OFFICER [address] [place] [address] Deputy Sheriff Building [employer] Internal Medicine 01/14/24 04/25/24 Health Unit Supervisor Relationship Specialty Start Date End Date Hung Rivero MD [address] [place] [address] PCP - General 04/02/02 Shefali Carvajal, DEPARTMENT HEAD.DATABASE TECHNICIAN [address] [facility] [place] [address] Deputy Sheriff Building Guard Internal Medicine 01/14/24 Cassi Riley DEPARTMENT HEAD.AIR DEFENCE OFFICER [address] [place] [address] Deputy Sheriff Building [employer] Internal Medicine 04/29/24 Team Status: Active Member Role Status Dates Dr. Hung Rivero MD Primary Care Provider Active Team Status: Inactive Member Role Status Dates Dr. Hung Rivero MD Primary Care Provider Active Start: May 16, 2024 End: May 16, 2024 Dr. Stanley Norris , DO Emergency Provider Active Start: May 16, 2024 End: May 16, 2024 Health Unit Supervisor Relationship Specialty Start Date End Date Hung Rivero MD [address] [facility] [place] [address] PCP - General 04/02/02 Shefali Carvajal, DEPARTMENT HEAD.DATABASE TECHNICIAN [address] [facility] [place] [address] Deputy Sheriff Building [employer] Internal Medicine 01/14/24 Cassi Riley DEPARTMENT HEAD.AIR DEFENCE OFFICER [address] [facility] [place] [address] Deputy Sheriff Building [employer] Internal Medicine 04/29/24 Health Unit Supervisor Relationship Specialty Start Date End Date Hung Rivero MD [address] [facility] [place] [address] PCP - General 04/02/02 Shefali Carvajal, DEPARTMENT HEAD.DATABASE TECHNICIAN [address] [place] [address] Deputy Sheriff Building [employer] Internal Medicine 01/14/24 Cassi Riley DEPARTMENT HEAD.AIR DEFENCE OFFICER [address] [facility] [place] [address] Deputy Sheriff Building [employer] Internal Medicine 04/29/24 Health Unit Supervisor Relationship Specialty Start Date End Date Hung Rivero MD [address] [facility] [place] [address] PCP - General 04/02/02 Shefali Carvajal, DEPARTMENT HEAD.DATABASE TECHNICIAN [address] [facility] [place] [address] Deputy Sheriff Building Guard Internal Medicine 01/14/24 Cassi Riley DEPARTMENT HEAD.AIR DEFENCE OFFICER [address] [place] [address] [facility] Internal Medicine 04/29/24 Health Unit Supervisor Relationship Specialty Start Date End Date Hung Rivero MD [address] [place] [address] PCP - General 04/02/02 Shefali Carvajal, DEPARTMENT HEAD.DATABASE TECHNICIAN [address] [place] [address] [facility] Internal Medicine 01/14/24 Cassi Riley DEPARTMENT HEAD.AIR DEFENCE OFFICER [address] [place] [address] [facility] Internal Medicine 04/29/24 Health Unit Supervisor Relationship Specialty Start Date End Date Hung Rivero MD [address] [place] [address] PCP - General 04/02/02 Shefali Carvajal, DEPARTMENT HEAD.DATABASE TECHNICIAN [address] [place] [address] [facility] Internal Medicine 01/14/24 Cassi Riley DEPARTMENT HEAD.AIR DEFENCE OFFICER [address] [place] [address] [facility] Internal Medicine 04/29/24 Team Status: Inactive Member Role Status Dates Dr. Hung Rivero MD Primary Care Provider Active Start: May 16, 2024 End: May 16, 2024 Dr. Stanley Norris DO Attending Provider Active Start: May 16, 2024 End: May 16, 2024 Dr. Stanley Norris , DO Emergency Provider Active Start: May 16, 2024 End: May 16, 2024 Team Status: Inactive Member Role Status Dates Dr. Hung Rivero MD Primary Care Provider Active Start: May 23, 2024 End: May 23, 2024 Dr. Marisabel Kelly MD Attending Provider Ac tive Start: May 23, 2024 End: May 23, 2024 Dr. Marisabel Kelly MD Referring Provider Ac tive Start: May 23, 2024 End: May 23, 2024 Health Unit Supervisor Relationship Specialty Start Date End Date Hung Rivero MD [address] [facility] [place] [address] PCP - General 04/02/02 Shefali Carvajal, DEPARTMENT HEAD.DATABASE TECHNICIAN [address] [facility] [place] [address] Deputy Sheriff Building [employer] Internal Medicine 01/14/24 Cassi Riley DEPARTMENT HEAD.AIR DEFENCE OFFICER [address] [facility] [place] [address] [facility] Internal Medicine 04/29/24 Health Unit Supervisor Relationship Specialty Start Date End Date Hung Rivero MD [address] [facility] [place] [address] PCP - General 04/02/02 Shefali Carvajal, DEPARTMENT HEAD.DATABASE TECHNICIAN [address] [facility] [place] [address] [facility] Internal Medicine 01/14/24 Cassi Riley DEPARTMENT HEAD.AIR DEFENCE OFFICER [address] [facility] [place] [address] Deputy Sheriff Building [employer] Internal Medicine 04/29/24 Health Unit Supervisor Relationship Specialty Start Date End Date Hung Rivero MD [address] [place] [address] PCP - General 04/02/02 Shefali Carvajal, DEPARTMENT HEAD.DATABASE TECHNICIAN [address] [facility] [address] Deputy Sheriff Building Guard Internal Medicine 01/14/24 Cassi Riley DEPARTMENT HEAD.AIR DEFENCE OFFICER [address] [place] [address] Deputy Sheriff Building Guard Internal Medicine 04/29/24 Health Unit Supervisor Relationship Specialty Start Date End Date Hung Rivero MD [address] [place] [address] PCP - General 04/02/02 Cassi Riley DEPARTMENT HEAD.AIR DEFENCE OFFICER [address] [place] [address] Deputy Sheriff Building Guard Internal Medicine 04/29/24 Shefali Carvajal, DEPARTMENT HEAD.DATABASE TECHNICIAN [address] [place] [address] Deputy Sheriff Building Guard Internal Medicine 06/25/24 Health Unit Supervisor Relationship Specialty Start Date End Date Hung Rivero MD [address] [place] [address] PCP - General 04/02/02 Cassi Riley DEPARTMENT HEAD.AIR DEFENCE OFFICER [address] [place] [address] Deputy Sheriff Building Guard Internal Medicine 04/29/24 Shefali Carvajal, DEPARTMENT HEAD.DATABASE TECHNICIAN [address] [facility] [place] [address] Deputy Sheriff Building Guard Internal Medicine 06/25/24 Health Unit Supervisor Relationship Specialty Start Date End Date Hung Rivero MD [address] [facility] [place] [address] PCP - General 04/02/02 Cassi Riley APRN.AIR DEFENCE OFFICER [address] [facility] [place] [address] Deputy Sheriff Building Guard Internal Medicine 04/29/24 Shefali Carvajal APRN.DATABASE TECHNICIAN [address] [facility] [place] [address] [facility] Internal Medicine 06/25/24 Health Unit Supervisor Relationship Specialty Start Date End Date Hung Rivero MD [address] [facility] [place] [address] PCP - General 04/02/02 Cassi Riley APRN.AIR DEFENCE OFFICER [address] [facility] [place] [address] Deputy Sheriff Building Guard Internal Medicine 04/29/24 Shefali Carvajal APRN.DATABASE TECHNICIAN [address] [place] [address] [facility] Internal Medicine 06/25/24 INFORMATION SOURCE (unrecogn ized section and content) DATE CREATED AUTHOR 05/30/2024 [facility] DATE CREATED AUTHOR SOCRATES ANTOINE 10/03/2024 [facility] FOR RECORDS PERTAINING TO PATIENTS WHO ARE OR HAVE BEEN ENROLLED IN A CHEMICAL DEPENDENCY/SUBSTANCEABUSE PROGRAM, SOME INFORMATION MAY BE OMITTED. This clinical summary was aggregated from multiple sources. Caution should be exercised in using it in the provision of clinical care. This summary normalizes information from multiple sources, and as a consequence, information in this document may materially change the coding, format and clinical context of patient data. In addition, data may be omitted in some cases. CLINICAL DECISIONS SHOULD BE BASED ON THE PRIMARY CLINICAL RECORDS. [facility]. provides no warranty or guarantee of the accuracy or completeness of information in this document.
[2024-10-06 14:37] LABS: Squamous Epithelial Cells - UA 5-10 SEEN /hpf (5-10)
[2024-10-06 14:38] LABS: Internal QC Validated? YES +Cl - CLEAR BKGD; Record Kit Lot#, Mono 13241430
[2024-10-06 15:00] VITALS: BP 116/68; PULSE 86; RESP 18; TEMP 36.3; O2SAT 96
== END 2024-10-06 15:11 | disposition home or self-care (01) ==
PROVIDERS: Emergency Provider Emergency Medicine; PCP Internal Medicine; Visit Provider Emergency Medicine
DX: N39.0 Urinary tract infection, site not specified (principal); R50.9 Fever, unspecified; F41.9 Anxiety disorder, unspecified; F32.A Depression, unspecified; Z79.899 Other long term (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 therapy
CPT/HCPCS: 71046; 80048; 81001; 85025; 86308; 87631; 96360; 99283; A4216

== ENCOUNTER 2024-10-07 09:58 | Emergency (ER) | payer BC, SELFPAY ==
[2024-10-07] VITALS (10 sets, daily range): BP systolic 103–131; BP diastolic 57–79; PULSE 87–112; RESP 16–28; TEMP 36.1–37; O2SAT 92–100; BMI 35.7
--- NOTE | 2024-10-07 10:02 | EKG12_ITS ---
Test Reason : CP Blood Pressure : */* mmHG Vent. Rate : 107 BPM Atrial Rate : 107 BPM P-R Int : 148 ms QRS Dur : 84 ms QT Int : 324 ms P-R-T Axes : 41 59 32 degrees QTcB Int : 432 ms Sinus tachycardia Possible Left atrial enlargement Nonspecific T wave abnormality Abnormal ECG Confirmed by Chong Thompson ([id number]), business editor LON GUADALUPE ([id number]) on 10/08/2024 8:17:08 AM Referred By: Confirmed By: Chong Thompson
--- NOTE | 2024-10-07 10:20 | RAD_ITS ---
EXAM: XR Chest, 1 View CLINICAL INDICATION: CHEST PAIN TECHNIQUE: Frontal view of the chest. COMPARISON: No relevant prior studies available. FINDINGS: LUNGS AND PLEURAL SPACES: See below. HEART: Cardiomegaly with mild congestion. MEDIASTINUM: Unremarkable. Normal mediastinal contour. BONES/JOINTS: Unremarkable. No acute fracture. RAD/Chest 1 View (Portable) IMPRESSION: Cardiomegaly with mild congestion. Reading Location: [facility]
[2024-10-07 10:23] LABS: Hematocrit 32.9 % (37-47); Hemoglobin 10.5 g/dL (12.0-15.0); Immature Granulocytes Count 0.070 X10^3/uL (0.0-0.0); Mean Corp Hgb Conc 31.9 g/dL (32-36); Mean Corpuscular Volume 83.7 fL (81-99); Mean Platelet Vol. 8.6 fl (6.2-12.0); NRBC Flagged by Analyzer 0 % (0-5); Platelet Count 546 K/mm3 (150-450); RBC Distribution Width CV 17.9 % (11.6-14.6); RBC Distribution Width SD 54.9 fl (35.1-43.9); Red Blood Count 3.93 M/mm3 (4.2-5.4); White Blood Count 14.3 K/mm3 (4.4-11.0)
--- NOTE | 2024-10-07 10:51 | ED.RN ---
pt called out saying felt light headed and nauseated. pt very pale when nurse in to eval. bp 96/70. pt c/o hands being numb and tingly pt moaning then rolled to side throwing up. bs obtained and was 162. text in for c/o and orders
[2024-10-07 11:10] LABS: Anion Gap 12 (5-15); BUN 21 mg/dL (4-19); BUN/Creat Ratio 27.4 RATIO (10-20); Calcium,Total 9.0 mg/dL (7.6-11.0); Carbon Dioxide 19.9 mmol/L (21.0-32.0); Chloride 107 mmol/L (98-108); Estimated Creatinine Clearance 128.74 ml/min (50-250); Glucose 211 mg/dL (70-99); Potassium 3.8 mmol/L (3.3-5.1); Troponin T High Sensitivity 24 ng/L (<=14)
--- NOTE | 2024-10-07 11:14 | CT_ITS ---
EXAM: CT Angiography Chest Without and With Intravenous Contrast CLINICAL INDICATION: RULE OUT PE TECHNIQUE: Axial computed tomographic angiography images of the chest without and with intravenous contrast. This CT exam was performed using one or more of the following dose reduction techniques: automated exposure control, adjustment of the mA and/or kV according to patient size, and/or use of iterative reconstruction technique. MIP reconstructed images were created and reviewed. COMPARISON: No relevant prior studies available. FINDINGS: LIMITATIONS: Suboptimal opacification of the pulmonary arteries. PULMONARY ARTERIES: No pulmonary embolism is identified. Some of the distal pulmonary arteries cannot be evaluated due to suboptimal opacification. AORTA: No acute findings. No thoracic aortic aneurysm. LUNGS AND PLEURAL SPACES: Bilateral pleural effusions with compressive atelectasis. Superimposed pneumonia can not be excluded. No mass. HEART: Moderate pericardial effusion. No cardiomegaly. No evidence of RV dysfunction. BONES/JOINTS: No acute fracture. No dislocation. SOFT TISSUES: Unremarkable. LYMPH NODES: Unremarkable. No enlarged lymph nodes. CT/CTA Chest W/WO Contrast IMPRESSION: 1. No pulmonary embolism is identified. Some of the distal pulmonary arteries cannot be evaluated due to suboptimal opacification. 2. Moderate pericardial effusion. 3. Bilateral pleural effusions with compressive atelectasis. Superimposed pne umonia can not be excluded. Reading [facility]
[2024-10-07] MEDS: 0.9% Normal Saline (1000mL) 1,000 ML 1000 ML IV (11:22)
[2024-10-07 12:09] LABS: Pro- Brain NATRIURETIC PEPTIDE 509 pg/mL (<=450)
--- NOTE | 2024-10-07 12:43 | ECHOD_ITS ---
Reason For Study Reason For Study: Chest Pain Procedure This was a 2D Doppler, Color Flow transthoracic echocardiogram. Exam performed portable in ED. Left Ventricle Normal LV size. Left ventricular systolic function is normal. The left ventricular ejection fraction is 60 %. Septal bounce and paradoxical septal movement with inspiration. Right Ventricle Normal RV size. Normal systolic function. Atria The left and right atria are normal. Mitral Valve The mitral valve is structurally normal. No prolapse or stenosis seen. Trivial mitral valve insufficiency. Tricuspid Valve Normal tricuspid valve. Trivial tricuspid valve insufficiency. Unable to estimate RV systolic pressure due to insufficient tricuspid regurgitant envelope. Aortic Valve Trisinus/trileaflet aortic valve. Pulmonic Valve Normal pulmonic valve. Great Vessels Normal sized aortic root. The inferior vena cava is dilated. Hepatic venous systolic flow reveral noted. Pericardium/Pleural Thickened pericardium. MMode/2D Measurements & Calculations LVIDd: 4.1 cm IVSd: 0.95 cm Ao root diam: 2.9 cm LVIDs: 2.9 cm LVPWd: 0.96 cm RVDd: 3.7 cm FS: 28.7 % LAV(MOD-bp): 31.1 ml LVAd ap4: 24.9 cm2 SV(MOD-sp4): 47.1 ml LAV(MOD-bp) Indexed: 14.2 ml/m2 LVLd ap4: 7.2 cm SI(MOD-sp4): 21.5 ml/m2 LAV(MOD-sp2): 26.8 ml EDV(MOD-sp4): 70.6 ml LAV(MOD-sp4): 29.4 ml EDV(sp4-el): 73.1 ml LVAs ap4: 12.7 cm2 LVLs ap4: 5.7 cm ESV(MOD-sp4): 23.6 ml ESV(sp4-el): 24.1 ml EF(MOD-sp4): 66.7 % EF(sp4-el): 67.1 % SV(sp4-el): 49.0 ml LA A4 area: 13.2 cm2 LA dimension(2D): 3.5 cm RA A4 area: 12.7 cm2 Time Measurements MV dec time: 0.18 sec Doppler Measurements & Calculations MV E max rayray: 95.3 cm/sec Lat Peak E' Rayray: 12.5 cm/sec Med Peak E' Rayray: 12.9 cm/sec MV A max rayray: 62.7 cm/sec E/E' lat: 7.6 E/E' med: 7.4 MV E/A: 1.5 Ao V2 max: 128.6 cm/sec LV V1 max: 118.9 cm/sec MV dec slope: 516.3 cm/sec2 Ao max P.7 mmHg LV V1 max P.7 mmHg Ao V2 mean: 94.3 cm/sec Ao mean P.0 mmHg Ao V2 VTI: 21.4 cm PA V2 max: 99.7 cm/sec ECHO/Echo Complete Interpretation Summary The left ventricular ejection fraction is 60 %. Structually normal valves. There is significant respiratory variation in all valve velocities. There is a septal bounce and paradoxical septal movement with inspiration and a thickened pericardium suggestive of constrictiv e pericarditis. Recommend MRI for further evaluation. Ordering Physician: Tricia Dobson Referring Physician: Flor Grimm Performed By: Idalia Velasquez RDCS, RVT
[2024-10-07 13:04] LABS: Troponin T High Sens 2 HR < 6 ng/L (<=14)
[2024-10-07 13:15] LABS: Internal QC Validated? YES +Cl - CLEAR BKGD; Pregnancy, Urine Negative Negative; Record Kit Lot#,Urine Preg 0000962302
[2024-10-07 15:33] LABS: Troponin T High Sens 4 HR < 6 ng/L (<=14)
--- NOTE | 2024-10-07 15:58 | ED.VIS.CHEST ---
HPI History of Present Illness Chief Complaint: Chest Pain Narrative Narrative: Patient is a 39-year-old female presenting to the emergency department for left-sided chest pain. Patient states that it started yesterday. She reports some mild shortness of breath associated with it. States for the past 2 or 3 weeks she has had a viral type symptoms including intermittent fever, cough, congestion, fatigue. She reports that she was here yesterday and was diagnosed with a UTI. She denies history of DVT or PE. Denies any recent hospitalizations, surgeries or travel. She denies any hormonal medications. Reports some nausea that started when she got here. Denies any abdominal pain or vomiting. Denies any dysuria, hematuria, diarrhea or constipation. [facility] Medical History Depression History of steroid therapy Easy bruising Back pain Syncope Heartburn Non-smoker History of pain when walking History of edema Bradycardia Fibromyalgia Anxiety Home Medications ?Medication ?Instructions ?Recorded ?Last Taken ?Type hydroxyzine HCl 10 mg tablet 10 - 20 mg PO TID PRN PRN anxiety 05/16/24 Unknown History dbyheini-ptp-ykhk-FA-Ca carb-vit K 2 tab PO DAILY 05/22/24 Unknown History 18 mg iron-400 mcg-500 mg tablet cephalexin 500 mg capsule 500 mg PO Q6 #12 CAPSULES 10/06/24 Unknown Rx sertraline 100 mg tablet 100 mg PO DAILY 10/06/24 Unknown History Allergy/AdvReac Type Severity Reaction Status Date / Time cat dander (cats) Allergy WATERY Verified 10/07/24 09:58 EYES, CONGESTION grass pollen Allergy Other Verified 10/07/24 09:58 mold Allergy Other Verified 10/07/24 09:58 Family History Other Breast cancer Hypertension Surgical History History of hysteroscopy History of tonsillectomy Social History Smoking Status: Never smoker alcohol intake: never substance use type: does not use what type of physical activity do you participate in: walking frequency: 1-2 times per week ROS ROS ED ROS Narrative see HPI EXAM Physical Exam Narrative Exam Narrative: Vital signs: Reviewed General: Alert and oriented x 3. No acute distress. Pale appearing. HEENT: Head is normocephalic and atraumatic, sinuses nontender, pupils equal round and reactive. Nares are patent. Oropharynx and throat exams normal. Neck: Supple without lymphadenopathy nontender Cardiovascular: Regular rate and rhythm, no murmurs. No rubs or gallops. Normal S1 and S2 Chest: Left-sided chest wall is tender to palpation. No ecchymosis or crepitus. Respiratory: Clear to auscultation bilaterally. No wheezes, rales, rhonchi Abdominal: Soft and nontender. Normal bowel sounds. No guarding or rebound. Nonsurgical abdomen Extremities: No tenderness. No bruising. Normal range of motion. Normal sensation. Skin: No rash or redness. Neurological: Cranial nerves II through XII are grossly intact. Normal strength and sensation. Normal cerebellar function The rest of the physical exam is unremarkable Const Vital Signs: 10/07/24 09:59 10/07/24 10:01 10/07/24 10:02 Temperature 98.6 F Temperature Source Oral Pulse Rate 89 Respiratory Rate 16 Respiratory Effort Blood Pressure 106/71 Blood Pressure Mean 82 Pulse Ox 98 Oxygen Delivery Method Room Air Room Air 10/07/24 10:13 10/07/24 11:00 10/07/24 12:02 Temperature 98.5 F Temperature Source Oral Pulse Rate 87 94 Respiratory Rate 20 H 25 H Respiratory Effort Normal Non-Labored Blood Pressure 106/67 103/57 L Blood Pressure Mean 80 72 Pulse Ox 100 96 Oxygen Delivery Method Room Air Room Air 10/07/24 12:21 10/07/24 13:00 10/07/24 14:00 Temperature 97 F L 98.1 F Temperature Source Temporal Temporal Pulse Rate 94 102 H 102 H Respiratory Rate 26 H 20 H 20 H Respiratory Effort Blood Pressure 103/57 L 121/66 H 120/69 Blood Pressure Mean 72 84 86 Pulse Ox 96 100 97 Oxygen Delivery Method Room Air Room Air Room Air 10/07/24 15:00 10/07/24 16:00 Temperature 97.9 F 97.1 F L Temperature Source Temporal Pulse Rate 105 H 106 H Respiratory Rate 28 H 25 H Respiratory Effort Blood Pressure 116/69 116/69 Blood Pressure Mean 84 84 Pulse Ox 95 95 Oxygen Delivery Method Room Air MDM MDM MDM Narrative Medical decision making narrative: Patient is a 39-year-old female presenting to the emergency department for chest pain. Patient was seen and examined. Vitals are stable. Resting in bed comfortably no acute distress. Differential includes but is not limited to: ACS, PE, pericarditis, myocarditis, pneumonia, costochondritis Visit was reviewed from yesterday. Viral swab, mono and strep test were negative. She was found to have a UTI and started on antibiotics for this. Otherwise no significant findings. She did EKG with sinus tachycardia and nonspecific ST changes. CBC with mild leukocytosis of 14.3 and worsening anemia from baseline however has been gradual since May. BMP with slightly elevated BUN of 21. Initial troponin elevated at 24. BNP elevated at 509. CXR shows cardiomegaly and mild vascular congestion. Given the patient's chest pain, nonspecific EKG changes, elevated troponin and elevated BNP I do have concern for possible myocarditis. With the elevated troponin and BNP I also wanted to rule out PE, CT chest was ordered. This shows no pulmonary embolism. Moderate pericardial effusion. Bilateral pleural effusions with compressive atelectasis. I spoke to Dr. Thompson, cardiology, who asked that a formal ECHO be ordered. He also evaluated the patient in the ED. 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 He recommended that patient be transferred to a facility with cardiothoracic surgery. I spoke to hosiery looper from [facility], Dr. Fam, who accepted the patient for transfer. Patient was updated on the findings and the plan. She feels comfortable with the plan. Clinical impression Constrictive pericarditis History & Record Review Discussion w/independent historian: Patient Additional record(s) reviewed:: Prior ED visit Lab Data Attestation: I reviewed the patient's lab results. Labs: Laboratory Results - last 24 hr 10/07/24 10/07/24 10/07/24 10:14 10:44 12:26 WBC 14.3 H RBC 3.93 L Hgb 10.5 L Hct 32.9 L MCV 83.7 MCH 26.7 L MCHC 31.9 L RDW Std Deviation 54.9 H RDW Coeff of Fallon 17.9 H Plt Count 546 H MPV 8.6 Immature Gran % (Auto) 0.500 Neut % (Auto) 85.5 H Lymph % (Auto) 9.8 L [place] % (Auto) 3.5 Eos % (Auto) 0.6 Baso % (Auto) 0.1 Absolute Neuts (auto) 12.2 H Absolute Lymphs (auto) 1.40 Nucleated RBC % 0 Sodium 138 Potassium 3.8 Chloride 107 Carbon Dioxide 19.9 L Anion Gap 12 BUN 21 H Creatinine 0.75 Estim Creat Clear Calc 128.74 Est GFR (MDRD) Non-Af 104 BUN/Creatinine Ratio 27.4 H Glucose 211 H Calcium 9.0 Troponin T High Sens 24 H Troponin T Hi Sens 2 Hr < 6 Troponin T Hi Sens 4Hr NT pro BNP II Urine Test POC Glucose 162 H 10/07/24 10/07/24 10/07/24 12:56 13:55 14:47 WBC RBC Hgb Hct MCV MCH MCHC RDW Std Deviation RDW Coeff of Fallon Plt Count MPV Immature Gran % (Auto) Neut % (Auto) Lymph % (Auto) [place] % (Auto) Eos % (Auto) Baso % (Auto) Absolute Neuts (auto) Absolute Lymphs (auto) Nucleated RBC % Sodium Potassium Chloride Carbon Dioxide Anion Gap BUN Creatinine Estim Creat Clear Calc Est GFR (MDRD) Non-Af BUN/Creatinine Ratio Glucose Calcium Troponin T High Sens Troponin T Hi Sens 2 Hr Troponin T Hi Sens 4Hr < 6 NT pro BNP II 509 H Urine Test Negative POC Glucose Radiography Diagnostic Testing: Clinical Impression(s) from Imaging Studies Chest X-Ray 10/07/24 10:20 IMPRESSION: Cardiomegaly with mild congestion. Reading Location: [facility] Chest CTA 10/07/24 11:14 IMPRESSION: 1. No pulmonary embolism is identified. Some of the distal pulmonary arteries cannot be evaluated due to suboptimal opacification. 2. Moderate pericardial effusion. 3. Bilateral pleural effusions with compressive atelectasis. Superimposed pneumonia can not be excluded. Reading Location: [facility] Echocardiogram 10/07/24 12:43 Interpretation Summary The left ventricular ejection fraction is 60 %. Structually normal valves. There is significant respiratory variation in all valve velocities. There is a septal bounce and paradoxical septal movement with inspiration and a thickened pericardium suggestive of constrictive pericarditis. Recommend MRI for further evaluation. Ordering Physician: Tricia Dobson Referring Physician: Flor Grimm Performed By: Idalia Velasquez, ESTHER, RVT Discharge Plan Triage Chief Complaint: Chest Pain ED Provider: Tricia Dobson Dx/Rx/DC Orders Prescriptions: No Action hydroxyzine HCl 10 mg tablet 10 - 20 mg PO TID PRN PRN (Reason: anxiety) pl-cm-qjfx-FA-Ca carb-vit K 18 mg iron-400 mcg-500 mg tablet 2 tab PO DAILY sertraline 100 mg tablet 100 mg PO DAILY cephalexin 500 mg capsule 500 mg PO Q6 Qty: 12 0RF Primary Care Provider: Flor Grimm Referrals: lFor Grimm MD [Primary Care Provider] - Print Language: Uzbek
== END 2024-10-07 17:28 | disposition short-term general hospital (02) ==
LOC: ED 12:14
PROVIDERS: Emergency Provider Student in an Organized Health Care Education/Training Program; PCP Internal Medicine; Visit Provider Student in an Organized Health Care Education/Training Program
DX: R07.89 Other chest pain (principal); R06.02 Shortness of breath; N39.0 Urinary tract infection, site not specified; Z79.899 Other long term (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 therapy
CPT/HCPCS: 71045; 71275; 80048; 81025; 82962; 83880; 84484; 85025; 93005; 93306; 96361; 96374; 96375; 96376; 99285; Q9967; A4216; J2405

== ENCOUNTER 2024-10-14 11:15 | Inpatient (IN) | payer BC, SELFPAY ==
[2024-10-14] VITALS (26 sets, daily range): BP systolic 102–135; BP diastolic 57–87; PULSE 90–116; RESP 15–26; TEMP 36.7–37.3; O2SAT 94–98; BMI 35.4; BMI 34.3
--- NOTE | 2024-10-14 12:22 | CT_ITS ---
PROCEDURE: BRAIN/HEAD WITHOUT CONTRAST 10/14/2024 REASON FOR EXAM: TRAUMA Syncopal episodes. TECHNIQUE: Procedure Code: CTBR Modality: CT Procedure: BRAIN/HEAD WITHOUT CONTRAST Coronal and Sagittal reconstruction series were provided. One or more dose reduction techniques were used (e.g., Automated exposure control, adjustment of the mA and/or kV according to patient size, use of iterative reconstruction technique. RADIATION DOSE SUMMARY: CTDlvol: 44.99 mGy DLP: 812.98 mGycm COMPARISON: None FINDINGS: Brain: Normal CSF Spaces: Normal Sinuses/Mastoids: Clear at visualized levels Bones: Unremarkable CT/Brain/Head without Contrast IMPRESSION: NORMAL NONCONTRAST HEAD CT. Reading Location: [id number]
[2024-10-14 12:39] LABS: Hematocrit 36.3 % (37-47); Hemoglobin 11.6 g/dL (12.0-15.0); Immature Granulocytes Count 0.150 X10^3/uL (0.0-0.0); Mean Corp Hgb Conc 32.0 g/dL (32-36); Mean Corpuscular Volume 83.6 fL (81-99); Mean Platelet Vol. 9.2 fl (6.2-12.0); NRBC Flagged by Analyzer 0 % (0-5); POSITIVE DIFFERENTIAL YES; Platelet Count 563 K/mm3 (150-450); RBC Distribution Width CV 17.2 % (11.6-14.6); RBC Distribution Width SD 52.6 fl (35.1-43.9); Red Blood Count 4.34 M/mm3 (4.2-5.4); White Blood Count 24.1 K/mm3 (4.4-11.0)
[2024-10-14] MEDS: 0.9% Normal Saline (1000mL) 1,000 ML 1000 ML IV (12:40)
[2024-10-14 12:44] LABS: Differential Indicated SCAN CRITERIA MET
--- NOTE | 2024-10-14 12:44 | EX.ED.DYSGE1 ---
HPI History of Present Illness Chief Complaint: Syncope Narrative Narrative: 39-year-old female presents with her mother because of 2 syncopal episodes that she had this morning. She relates history that she was admitted at [facility] for pericarditis for 4 days. At that time she was having chest pain symptoms, but no near-syncope/syncope. She is currently taking colchicine. She was released from the hospital on Sunday, approximately 4 days ago, and stated that she had been improving. However, this morning she had 2 syncopal episodes, the first being for approximately 10 to 15 minutes. She states that around 7 or 7:15 in the morning, she got up out of bed, and fell on the floor. Her mother states that she found her on the floor and had been there for 15 minutes as her alarm had continued to go off. She denies any prodromal symptoms such as chest pain or shortness of breath. She had another syncopal episode that was a shorter duration at around 830. She feels somewhat lightheaded, but is not having any chest pain. She states she called her pharmacy district manager at [facility] and was told to come to the emergency department. [facility] Medical History Pericarditis Depression History of steroid therapy Easy bruising Back pain Syncope Heartburn Non-smoker History of pain when walking History of edema Bradycardia Fibromyalgia Anxiety Home Medications ?Medication ?Instructions ?Recorded ?Last Taken ?Type hydroxyzine HCl 10 mg tablet 10 - 20 mg PO TID PRN PRN anxiety 05/16/24 Unknown History ncitsprp-zcd-nptb-FA-Ca carb-vit K 2 tab PO DAILY 05/22/24 Unknown History 18 mg iron-400 mcg-500 mg tablet sertraline 100 mg tablet 100 mg PO DAILY 10/06/24 Unknown History colchicine 0.6 mg tablet PO 10/14/24 Unknown History ibuprofen 600 mg tablet 600 mg PO TID 10/14/24 Unknown History pantoprazole 40 mg tablet,delayed 40 mg PO DAILY 10/14/24 Unknown History release Allergy/AdvReac Type Severity Reaction Status Date / Time cat dander (cats) Allergy WATERY Verified 10/07/24 09:58 EYES, CONGESTION grass pollen Allergy Other Verified 10/07/24 09:58 mold Allergy Other Verified 10/07/24 09:58 Family History Other Breast cancer Hypertension Surgical History History of hysteroscopy History of tonsillectomy Social History Smoking Status: Never smoker alcohol intake: never substance use type: does not use what type of physical activity do you participate in: walking frequency: 1-2 times per week ROS ROS ED ROS Narrative Review of systems positive for lightheadedness and 2 syncopal episodes, longest duration being approximately 15 minutes. No prodromal chest pain or shortness of breath. No fevers or chills. No other symptoms. Possibly worse with standing. EXAM Physical Exam Narrative Exam Narrative: Afebrile. Vital signs noted. Nontoxic-appearing. Cardiovascular examination reveals a regular rate and rhythm. Lungs clear to auscultation bilaterally. Abdomen is soft nontender with positive bowel sounds. No guarding or rebound. Neurological examination is nonfocal, nonlateralizing. Awake, alert, interactive, oriented x 3. Const Vital Signs: 10/14/24 11:18 10/14/24 11:22 10/14/24 12:14 Temperature 98.1 F Temperature Source Oral Pulse Rate 100 93 Respiratory Rate 16 22 H Respiratory Effort Normal Respiratory Pattern Normal Blood Pressure 102/80 Blood Pressure [Lying] Blood Pressure [Sitting (for 1 minute prior to obtaining)] Blood Pressure [Standing (for 1 minute prior to obtaining)] Blood Pressure Mean 87 Blood Pressure Mean [Lying] Blood Pressure Mean [Sitting (for 1 minute prior to obtaining)] Blood Pressure Mean [Standing (for 1 minute prior to obtaining)] Pulse Ox 94 94 Oxygen Delivery Method Room Air 10/14/24 12:15 10/14/24 12:20 10/14/24 12:22 Temperature Temperature Source Pulse Rate 92 96 Respiratory Rate 22 H 18 Respiratory Effort Respiratory Pattern Blood Pressure 129/87 H 123/64 H Blood Pressure [Lying] 117/81 H Blood Pressure [Sitting (for 1 minute prior to obtaining)] 104/71 Blood Pressure [Standing (for 1 minute prior to obtaining)] 111/83 H Blood Pressure Mean 97 83 Blood Pressure Mean [Lying] 93 Blood Pressure Mean [Sitting (for 1 minute prior to obtaining)] 82 Blood Pressure Mean [Standing (for 1 minute prior to obtaining)] 92 Pulse Ox 95 96 Oxygen Delivery Method 10/14/24 12:25 10/14/24 12:30 10/14/24 12:35 Temperature Temperature Source Pulse Rate 90 96 92 Respiratory Rate 18 21 H 17 Respiratory Effort Respiratory Pattern Blood Pressure 126/70 H 130/80 H 113/80 Blood Pressure [Lying] Blood Pressure [Sitting (for 1 minute prior to obtaining)] Blood Pressure [Standing (for 1 minute prior to obtaining)] Blood Pressure Mean 85 92 92 Blood Pressure Mean [Lying] Blood Pressure Mean [Sitting (for 1 minute prior to obtaining)] Blood Pressure Mean [Standing (for 1 minute prior to obtaining)] Pulse Ox 95 96 96 Oxygen Delivery Method 10/14/24 12:37 10/14/24 12:38 10/14/24 12:41 Temperature Temperature Source Pulse Rate 93 96 116 H Respiratory Rate 16 15 22 H Respiratory Effort Respiratory Pattern Blood Pressure 117/81 H 104/71 111/83 H Blood Pressure [Lying] Blood Pressure [Sitting (for 1 minute prior to obtaining)] Blood Pressure [Standing (for 1 minute prior to obtaining)] Blood Pressure Mean 94 82 92 Blood Pressure Mean [Lying] Blood Pressure Mean [Sitting (for 1 minute prior to obtaining)] Blood Pressure Mean [Standing (for 1 minute prior to obtaining)] Pulse Ox 95 97 97 Oxygen Delivery Method 10/14/24 12:45 10/14/24 12:45 10/14/24 12:50 Temperature Temperature Source Pulse Rate 93 95 Respiratory Rate 19 H 25 H Respiratory Effort Respiratory Pattern Blood Pressure 114/78 114/78 120/73 Blood Pressure [Lying] Blood Pressure [Sitting (for 1 minute prior to obtaining)] Blood Pressure [Standing (for 1 minute prior to obtaining)] Blood Pressure Mean 90 90 85 Blood Pressure Mean [Lying] Blood Pressure Mean [Sitting (for 1 minute prior to obtaining)] Blood Pressure Mean [Standing (for 1 minute prior to obtaining)] Pulse Ox 98 96 Oxygen Delivery Method 10/14/24 12:55 10/14/24 12:55 10/14/24 13:00 Temperature Temperature Source Pulse Rate 102 H 99 Respiratory Rate 22 H 16 Respiratory Effort Respiratory Pattern Blood Pressure 113/86 H 113/86 H 125/84 H Blood Pressure [Lying] Blood Pressure [Sitting (for 1 minute prior to obtaining)] Blood Pressure [Standing (for 1 minute prior to obtaining)] Blood Pressure Mean 95 95 97 Blood Pressure Mean [Lying] Blood Pressure Mean [Sitting (for 1 minute prior to obtaining)] Blood Pressure Mean [Standing (for 1 minute prior to obtaining)] Pulse Ox 94 94 Oxygen Delivery Method 10/14/24 13:05 10/14/24 13:10 10/14/24 13:15 Temperature Temperature Source Pulse Rate 93 95 95 Respiratory Rate 19 H 19 H 20 H Respiratory Effort Respiratory Pattern Blood Pressure 122/66 H 118/81 H 118/80 Blood Pressure [Lying] Blood Pressure [Sitting (for 1 minute prior to obtaining)] Blood Pressure [Standing (for 1 minute prior to obtaining)] Blood Pressure Mean 83 92 93 Blood Pressure Mean [Lying] Blood Pressure Mean [Sitting (for 1 minute prior to obtaining)] Blood Pressure Mean [Standing (for 1 minute prior to obtaining)] Pulse Ox 94 95 95 Oxygen Delivery Method 10/14/24 14:00 10/14/24 15:00 10/14/24 16:00 Temperature Temperature Source Pulse Rate 94 99 100 Respiratory Rate 24 H 16 20 H Respiratory Effort Respiratory Pattern Blood Pressure 121/66 H 118/85 H Blood Pressure [Lying] Blood Pressure [Sitting (for 1 minute prior to obtaining)] Blood Pressure [Standing (for 1 minute prior to obtaining)] Blood Pressure Mean 83 96 Blood Pressure Mean [Lying] Blood Pressure Mean [Sitting (for 1 minute prior to obtaining)] Blood Pressure Mean [Standing (for 1 minute prior to obtaining)] Pulse Ox 95 96 94 Oxygen Delivery Method Room Air MDM MDM MDM Narrative Medical decision making narrative: Differential diagnosis includes but not limited to ACS versus cardiogenic syncope versus intravascular volume depletion versus orthostatic hypotension versus other electrolyte abnormality. According to the RN, patient became very near syncopal and almost had another syncopal episode with standing. EKG was obtained and interpreted by myself independently as normal sinus rhythm at 93 bpm without ectopy or acute ST changes. No STEMI. QTc normal at 405 ms. She may have slightly noticeable diffuse ST depression consistent with her previous pericarditis. I reviewed her laboratory work and she has a leukocytosis of 24.1. In review of prior labs it has been high as 18. Hemoglobin stable 11.6 with hematocrit 36.3, platelet count elevated at 563 which may be an acute phase reactant. Electrolyte panel is remarkable for CO2 low at 19.5, BUN 20 with creatinine 0.73. She was bolused IV fluids. Glucose normal at 84. LFTs show alk phos elevated at 130 but normal AST and ALT which I think is nonspecific. High-sensitivity troponin is less than 6. CT of the brain obtained and on review of the radiology report there is no evidence of an acute hemorrhage, no acute process. Patient states she has headache so she was administered Tylenol 650 mg orally. On my independent interpretation of her chest x-ray, there is no acute process, no pneumonia or pneumothorax. I reviewed the radiology report which confirms my independent interpretation. Upon repeat examination, patient states that she is unable to stand, and feel she is a fall risk. Given her 2 syncopal events and near syncope here, I discussed the patient with the hospitalist for observation. She feels that her autistic child and her will be unable to care for her at home. To discuss patient with Dr. Thompson. He was able to review the echocardiogram performed at [facility] recently. There was concern for constrictive pericarditis. Given her 2 syncopal episodes and near syncope today, it was felt that she should return to [facility] where she was recently discharged 4 days ago. I discussed patient with the [facility] transfer line. Initially, patient was put on a waiting list. I rediscussed the patient with Dr. Thompson who requested that I speak with cardiology as it was felt this is more of an urgent/emergent transfer. I discussed patient with Dr. Antonio Martinez with [facility] cardiology. He states that there was no emergent need for ED to ED transfer as she is not tachycardic or hypotensive currently, and she does not have a dangerously enlarged heart on chest x-ray. He has accepted her in transfer. I rediscussed the patient with Dr. Thompson. He requested that stat echocardiogram, limited be performed as he has discussed the patient with Dr. Thompson. This is to check the size of a pericardial effusion. At this point in time, patient signed out to Dr. Wood to continue further discussion with the hospitalist as it is not anticipated that she will be transferred within the 6-hour window although she has been accepted. She will most likely require admission/observation here in the PCU. Currently she is in stable condition. History & Record Review Discussion w/independent historian: Patient Additional record(s) reviewed:: Prior ED visit Lab Data Attestation: I reviewed the patient's lab results. Labs: Laboratory Results - last 24 hr 10/14/24 11:20 WBC 24.1 H RBC 4.34 Hgb 11.6 L Hct 36.3 L MCV 83.6 MCH 26.7 L MCHC 32.0 RDW Std Deviation 52.6 H RDW Coeff of Fallon 17.2 H Plt Count 563 H MPV 9.2 Immature Gran % (Auto) 0.600 Neut % (Auto) 87.0 H Lymph % (Auto) 6.4 L [place] % (Auto) 5.5 Eos % (Auto) 0.3 Baso % (Auto) 0.2 Absolute Neuts (auto) 21.0 H Absolute Lymphs (auto) 1.53 Nucleated RBC % 0 Platelet Estimate MOD INC Sodium 136 Potassium 4.5 Chloride 103 Carbon Dioxide 19.5 L Anion Gap 14 BUN 20 H Creatinine 0.73 Estim Creat Clear Calc 131.68 Est GFR (MDRD) Non-Af 107 BUN/Creatinine Ratio 26.9 H Glucose 84 Calcium 9.1 Total Bilirubin 0.65 AST 20 ALT 33 Alkaline Phosphatase 130 H Troponin T High Sens < 6 D Total Protein 7.8 Albumin 3.8 Globulin 4.0 Albumin/Globulin Ratio 1.0 Radiography Chest X-Ray - ED: 1 View, Read by ED Physician and Read by Radiologist Diagnostic Testing: Clinical Impression(s) from Imaging Studies Brain CT 10/14/24 12:22 IMPRESSION: NORMAL NONCONTRAST HEAD CT. Reading Location: [id number] Chest X-Ray 10/14/24 12:50 IMPRESSION: No Acute Findings. Reading Location: [id number] Management Discussion w/another healthcare provider: Hospitalist (Dr. Thompson) and Plant Attendant (Dr. Martinez, cardiology [facility]) Discharge Plan Triage Chief Complaint: Syncope ED Provider: Angel Luis Gates Dx/Rx/DC Orders Prescriptions: No Action pantoprazole 40 mg tablet,delayed release (DR/EC) 40 mg PO DAILY ibuprofen 600 mg tablet 600 mg PO TID colchicine 0.6 mg tablet PO hydroxyzine HCl 10 mg tablet 10 - 20 mg PO TID PRN PRN (Reason: anxiety) co-os-njip-FA-Ca carb-vit K 18 mg iron-400 mcg-500 mg tablet 2 tab PO DAILY sertraline 100 mg tablet 100 mg PO DAILY Primary Care Provider: Flor Grimm Referrals: Flor Grimm MD [Primary Care Provider] - Print Language: Djiboutian
--- NOTE | 2024-10-14 12:50 | RAD_ITS ---
PROCEDURE: CHEST 1 VIEW (PORTABLE) 10/14/2024 REASON FOR EXAM: SYNCOPE TECHNIQUE: Frontal view of the chest. COMPARISON: Prior study dated October 07, 2024. FINDINGS: Hardware: EKG electrodes are seen. Heart: Heart size is mildly enlarged. Lungs: The lungs are clear. Bones: The bones are unremarkable. Other: RAD/Chest 1 View (Portable) IMPRESSION: No Acute Findings. Reading Location: [id number]
[2024-10-14 13:26] LABS: Troponin T High Sensitivity < 6 ng/L (<=14)
[2024-10-14 13:28] LABS: AST(SGOT) 20 U/L (<=31); Alanine Aminotransfer ALT/SGPT 33 U/L (<=34); Albumin, Serum 3.8 g/dL (3.5-5.0); Alkaline Phosphatase 130 U/L (35-104); Anion Gap 14 (5-15); BUN 20 mg/dL (4-19); BUN/Creat Ratio 26.9 RATIO (10-20); Calcium,Total 9.1 mg/dL (7.6-11.0); Carbon Dioxide 19.5 mmol/L (21.0-32.0); Chloride 103 mmol/L (98-108); Estimated Creatinine Clearance 131.68 ml/min (50-250); Globulin 4.0 g/dL (2.2-4.2); Glucose 84 mg/dL (70-99); Potassium 4.5 mmol/L (3.3-5.1)
[2024-10-14] MEDS: 0.9% Normal Saline (1000mL) 1,000 ML 999 ML IV (14:46)
--- NOTE | 2024-10-14 16:31 | ECHOL_ITS ---
Reason For Study Reason For Study: PERICARDIAL EFFUSION Procedure This was a limited 2D transthoracic echocardiogram. Myocardial strain analysis was performed in this exam to aid in the assessment of cardiac function. Exam performed portable in patient room. Left Ventricle Normal size and thickness. The global longitudinal strain = -18.5 % (normal). The left ventricular ejection fraction is 55 %. Right Ventricle Normal right ventricle. Atria The left and right atria are normal. Mitral Valve The mitral valve is structurally normal. No prolapse or stenosis seen. Tricuspid Valve Normal tricuspid valve. Aortic Valve Trisinus/trileaflet aortic valve. Pulmonic Valve The pulmonic valve is not well visualized. Great Vessels Normal sized aortic root. Pericardium/Pleural Small organized pericardial effusion. Compared to the previous study from 10/07/2024, the effusion remains the same or may be slightly decreased. MMode/2D Measurements & Calculations LVIDd: 4.2 cm IVSd: 0.88 cm LAV(MOD- bp): 35.5 ml LVIDs: 3.0 cm LVPWd: 0.94 cm LAV(MOD- bp) Indexed: 16.5 ml/m2 RVDd: 3.5 cm FS: 26.9 % LAV(MOD- sp2): 34.8 ml LAV(MOD- sp4): 36.4 ml SV(MOD- sp4): 30.4 ml LVAd ap4: 20.8 cm2 LVAd ap2: 19.4 cm2 LVLd ap4: 7.4 cm LVLd ap2: 7.5 cm SI(MOD- sp4): 14.1 ml/m2 EDV(MOD-sp4): 53.2 ml EDV(MOD-sp2): 43.1 ml EDV(sp4-el): 50.1 ml EDV(sp2-el): 42.7 ml LVAs ap4: 12.8 cm2 LVAs ap2: 11.6 cm2 LVLs ap4: 6.1 cm LVLs ap2: 6.2 cm ESV(MOD-sp4): 22.9 ml ESV(MOD-sp2): 19.5 ml ESV(sp4-el): 22.9 ml ESV(sp2-el): 18.3 ml EF(MOD-sp4): 57.1 % EF(MOD-sp2): 54.7 % EF(sp4-el): 54.2 % SV(MOD-sp2): 23.6 ml SV(sp4-el): 27.2 ml Ao sinus diam: 2.7 cm SI(MOD-sp2): 11.0 ml/m2 LA dimension(2D): 3.3 cm LA A4 area: 15.0 cm2 RA A4 area: 10.4 cm2 Doppler Measurements & Calculations Lat Peak E' Rayray: 10.7 cm/sec Med Peak E' Rayray: 12.6 cm/sec ECHO/Echo, Limited Study Interpretation Summary The global longitudinal strain = -18.5 % (normal). The left ventricular ejection fraction is 55 %. Small organized pericardial effusion. Compared to the previous study from 025, the effusion remains the same or may be slightly decreased. Previously reported septal bounce and paradoxical septal motion are no longer n oted. Ordering Physician: Angel Luis Gates Referring Physician: Flor Grimm M.D. Performed By: Jennifer Green RDCS
[2024-10-14 16:38] LABS: Troponin T High Sens 2 HR < 6 ng/L (<=14)
[2024-10-14 17:28] LABS: CRP 205.00 mg/L (0.0-3.0)
--- NOTE | 2024-10-14 17:46 | PCM.HP.STD ---
HPI - General General Date of Admission: 10/14/24 Date of Service: 10/14/24 Chief Complaint: Syncope HPI Narrative BRYAN LAN, is a 39 F who presented to [facility] on 10/14/2024 with syncope. Patient was recently hospitalized at [facility] from 10/07-10/11 for acute pericarditis. She initially presented to the ED here on 10/07 with pleuritic chest pain. CTA chest showed a moderate pericardial effusion with bilateral pleural effusions with compressive atelectasis. Urgent echo in the ED showed thickened pericardium with small effusion, no evidence of tamponade, normal LV function and size but septal bounce and paradoxical septal movement with inspiration noted. She was evaluated by Dr. Thompson who noted that given these findings along with fever and leukocytosis, he had concern for possible bacterial pericarditis and had her transferred to [facility] for further evaluation. She had a cardiac MRI done there that showed no tamponade physiology and findings of acute pericarditis with early constrictive features. ID evaluated her and discussed with cardiology there, and there was minimal concern for bacterial pericarditis. Her inflammatory markers were significantly elevated with CRP 318 and ESR 101. She was started on ibuprofen and colchicine with some improvement and was discharged home on 10/11 with plan to check repeat inflammatory markers shortly after discharge. Patient reported continued general fatigue and malaise over the past few days with some decreased p.o. intake. This morning, she felt lightheaded and dizzy when getting out of bed and next thing she knew, she was on the floor. No head trauma or other trauma noted. She was able to get up and back into bed, but when she tried to get out of bed later in the morning she had similar symptoms, so she came to the ED for further evaluation. In the ED she was mildly tachycardic to low 100s and had a low-grade fever, was otherwise normotensive and stable on room air at rest. CBC notable for worsened leukocytosis of 24,000 and continued thrombocytosis with platelet count 563,000. CRP 205, ESR 105. BMP was unremarkable. Chest x-ray is nonacute. She was given 2 L of IV fluids in the ED, and then hospitalist was not contacted for admission. Given her recent history, I discussed the case with Dr. Thompson over the phone. He noted that the syncopal episode may have been due to some degree of dehydration in setting of her acute pericarditis with early constrictive features, as it is important to maintain appropriate preload with this. He noted that there was less likelihood of developing tamponade with this diagnosis. He recommended further IV fluid resuscitation as needed and limited echo in the morning for further evaluation. I then saw the patient at bedside, was present. Patient was mildly fatigued appearing but otherwise was laying back comfortably in bed, conversing normally, in no acute distress. She denied any chest pain or shortness of breath currently. Denied any presyncopal symptoms at rest. She did report feeling somewhat better after the IV fluids but continues to have generalized fatigue and malaise with minimal appetite. She otherwise has no acute concerns currently. Will be admitted for further management. [facility] Medical History Pericarditis Depression History of steroid therapy Easy bruising Back pain Syncope Heartburn Non-smoker History of pain when walking History of edema Bradycardia Fibromyalgia Anxiety Home Medications ?Medication ?Instructions ?Recorded ?Last Taken ?Type hydroxyzine HCl 10 mg tablet 10 - 20 mg PO TID PRN PRN anxiety 05/16/24 Unknown History [id number] carb-vit K 2 tab PO DAILY 05/22/24 Unknown History 18 mg iron-400 mcg-500 mg tablet sertraline 100 mg tablet 100 mg PO DAILY 10/06/24 Unknown History colchicine 0.6 mg tablet 0.6 mg PO BID 10/14/24 Unknown History ibuprofen 600 mg tablet 600 mg PO TID 10/14/24 Unknown History ondansetron 4 mg disintegrating 4 mg PO Q6H PRN PRN nausea/vomiting 10/14/24 Unknown History tablet pantoprazole 40 mg tablet,delayed 40 mg PO DAILY 10/14/24 Unknown History release Allergy/AdvReac Type Severity Reaction Status Date / Time cat dander (cats) Allergy WATERY Verified 10/07/24 09:58 EYES, CONGESTION grass pollen Allergy Other Verified 10/07/24 09:58 mold Allergy Other Verified 10/07/24 09:58 Family History Other Breast cancer Hypertension Surgical History History of hysteroscopy History of tonsillectomy Social History Smoking Status: Never smoker alcohol intake: never substance use type: does not use what type of physical activity do you participate in: walking frequency: 1-2 times per week ROS Constitutional Constitutional: Reports fatigue and malaise; Denies chills, fever(s) or weakness Eyes Eyes: Denies change in vision Cardiovascular Cardiovascular: Reports lightheadedness; Denies chest pain, dyspnea on exertion, edema or palpitations Respiratory/Chest Respiratory/Chest: Denies cough, shortness of breath at rest, shortness of breath with exertion or wheezing Gastrointestinal Gastrointestinal: Reports nausea; Denies abdominal pain, constipation, diarrhea or vomiting Musculoskeletal Musculoskeletal: Denies arthralgias or myalgias Neurologic Neurologic: Reports dizziness; Denies focal weakness, headache(s), numbness or tingling Vital Signs Vital Signs Vital Signs: 10/14/24 11:18 10/14/24 11:22 10/14/24 12:14 Temperature 98.1 F Temperature Source Oral Pulse Rate 100 93 Respiratory Rate 16 22 H Respiratory Effort Normal Respiratory Pattern Normal Blood Pressure 102/80 Blood Pressure [Lying] Blood Pressure [Sitting (for 1 minute prior to obtaining)] Blood Pressure [Standing (for 1 minute prior to obtaining)] Blood Pressure Mean 87 Blood Pressure Mean [Lying] Blood Pressure Mean [Sitting (for 1 minute prior to obtaining)] Blood Pressure Mean [Standing (for 1 minute prior to obtaining)] Pulse Ox 94 94 Oxygen Delivery Method Room Air 10/14/24 12:15 10/14/24 12:20 10/14/24 12:22 Temperature Temperature Source Pulse Rate 92 96 Respiratory Rate 22 H 18 Respiratory Effort Respiratory Pattern Blood Pressure 129/87 H 123/64 H Blood Pressure [Lying] 117/81 H Blood Pressure [Sitting (for 1 minute prior to obtaining)] 104/71 Blood Pressure [Standing (for 1 minute prior to obtaining)] 111/83 H Blood Pressure Mean 97 83 Blood Pressure Mean [Lying] 93 Blood Pressure Mean [Sitting (for 1 minute prior to obtaining)] 82 Blood Pressure Mean [Standing (for 1 minute prior to obtaining)] 92 Pulse Ox 95 96 Oxygen Delivery Method 10/14/24 12:25 10/14/24 12:30 10/14/24 12:35 Temperature Temperature Source Pulse Rate 90 96 92 Respiratory Rate 18 21 H 17 Respiratory Effort Respiratory Pattern Blood Pressure 126/70 H 130/80 H 113/80 Blood Pressure [Lying] Blood Pressure [Sitting (for 1 minute prior to obtaining)] Blood Pressure [Standing (for 1 minute prior to obtaining)] Blood Pressure Mean 85 92 92 Blood Pressure Mean [Lying] Blood Pressure Mean [Sitting (for 1 minute prior to obtaining)] Blood Pressure Mean [Standing (for 1 minute prior to obtaining)] Pulse Ox 95 96 96 Oxygen Delivery Method 10/14/24 12:37 10/14/24 12:38 10/14/24 12:41 Temperature Temperature Source Pulse Rate 93 96 116 H Respiratory Rate 16 15 22 H Respiratory Effort Respiratory Pattern Blood Pressure 117/81 H 104/71 111/83 H Blood Pressure [Lying] Blood Pressure [Sitting (for 1 minute prior to obtaining)] Blood Pressure [Standing (for 1 minute prior to obtaining)] Blood Pressure Mean 94 82 92 Blood Pressure Mean [Lying] Blood Pressure Mean [Sitting (for 1 minute prior to obtaining)] Blood Pressure Mean [Standing (for 1 minute prior to obtaining)] Pulse Ox 95 97 97 Oxygen Delivery Method 10/14/24 12:45 10/14/24 12:45 10/14/24 12:50 Temperature Temperature Source Pulse Rate 93 95 Respiratory Rate 19 H 25 H Respiratory Effort Respiratory Pattern Blood Pressure 114/78 114/78 120/73 Blood Pressure [Lying] Blood Pressure [Sitting (for 1 minute prior to obtaining)] Blood Pressure [Standing (for 1 minute prior to obtaining)] Blood Pressure Mean 90 90 85 Blood Pressure Mean [Lying] Blood Pressure Mean [Sitting (for 1 minute prior to obtaining)] Blood Pressure Mean [Standing (for 1 minute prior to obtaining)] Pulse Ox 98 96 Oxygen Delivery Method 10/14/24 12:55 10/14/24 12:55 10/14/24 13:00 Temperature Temperature Source Pulse Rate 102 H 99 Respiratory Rate 22 H 16 Respiratory Effort Respiratory Pattern Blood Pressure 113/86 H 113/86 H 125/84 H Blood Pressure [Lying] Blood Pressure [Sitting (for 1 minute prior to obtaining)] Blood Pressure [Standing (for 1 minute prior to obtaining)] Blood Pressure Mean 95 95 97 Blood Pressure Mean [Lying] Blood Pressure Mean [Sitting (for 1 minute prior to obtaining)] Blood Pressure Mean [Standing (for 1 minute prior to obtaining)] Pulse Ox 94 94 Oxygen Delivery Method 10/14/24 13:05 10/14/24 13:10 10/14/24 13:15 Temperature Temperature Source Pulse Rate 93 95 95 Respiratory Rate 19 H 19 H 20 H Respiratory Effort Respiratory Pattern Blood Pressure 122/66 H 118/81 H 118/80 Blood Pressure [Lying] Blood Pressure [Sitting (for 1 minute prior to obtaining)] Blood Pressure [Standing (for 1 minute prior to obtaining)] Blood Pressure Mean 83 92 93 Blood Pressure Mean [Lying] Blood Pressure Mean [Sitting (for 1 minute prior to obtaining)] Blood Pressure Mean [Standing (for 1 minute prior to obtaining)] Pulse Ox 94 95 95 Oxygen Delivery Method 10/14/24 14:00 10/14/24 15:00 10/14/24 16:00 Temperature Temperature Source Pulse Rate 94 99 100 Respiratory Rate 24 H 16 20 H Respiratory Effort Respiratory Pattern Blood Pressure 121/66 H 118/85 H Blood Pressure [Lying] Blood Pressure [Sitting (for 1 minute prior to obtaining)] Blood Pressure [Standing (for 1 minute prior to obtaining)] Blood Pressure Mean 83 96 Blood Pressure Mean [Lying] Blood Pressure Mean [Sitting (for 1 minute prior to obtaining)] Blood Pressure Mean [Standing (for 1 minute prior to obtaining)] Pulse Ox 95 96 94 Oxygen Delivery Method Room Air 10/14/24 17:00 Temperature Temperature Source Pulse Rate 100 Respiratory Rate 20 H Respiratory Effort Respiratory Pattern Blood Pressure Blood Pressure [Lying] Blood Pressure [Sitting (for 1 minute prior to obtaining)] Blood Pressure [Standing (for 1 minute prior to obtaining)] Blood Pressure Mean Blood Pressure Mean [Lying] Blood Pressure Mean [Sitting (for 1 minute prior to obtaining)] Blood Pressure Mean [Standing (for 1 minute prior to obtaining)] Pulse Ox 97 Oxygen Delivery Method Weight Weight: 105.7 kg Body Mass Index (BMI) 35.4 Physical Exam Const alert, oriented x3 and no apparent distress Constitutional Narrative: Young middle-aged female, class I obesity, mildly fatigued appearing but otherwise sitting back comfortably in bed, conversing normally, in no acute distress. General Appearance: cooperative and comfortable HEENT normocephalic, head/scalp atraumatic, hearing grossly normal bilaterally, nasal mucous membranes and turbinates normal and moist oral mucous membranes Eyes PERRL, EOMs intact bilaterally and conjunctivae normal Neck full ROM Chest inspection of chest normal Resp normal respiratory effort, normal air movement, no use of accessory muscles and clear to auscultation bilaterally Cardio no murmurs and peripheral pulses 2+ throughout Cardio Narrative: Tachycardic, regular rhythm. No cardiac murmur or rub noted. GI normal to inspection, nondistended, normoactive bowel sounds, soft to palpation, non-tender and non-distended Back/Spine normal ROM Extremity normal to inspection, full ROM and no pedal edema Skin no rashes or lesions noted Psych mental status grossly normal Results Lab / Micro Data 10/14/24 11:20 10/14/24 11:20 Labs: Laboratory Results - last 24 hr 10/14/24 11:20: WBC 24.1 H, RBC 4.34, Hgb 11.6 L, Hct 36.3 L, MCV 83.6, MCH 26.7 L, MCHC 32.0, RDW Std Deviation 52.6 H, RDW Coeff of Fallon 17.2 H, Plt Count 563 H, MPV 9.2, Immature Gran % (Auto) 0.600, Neut % (Auto) 87.0 H, Lymph % (Auto) 6.4 L, [place] % (Auto) 5.5, Eos % (Auto) 0.3, Baso % (Auto) 0.2, Absolute Neuts (auto) 21.0 H, Absolute Lymphs (auto) 1.53, Nucleated RBC % 0, Platelet Estimate MOD INC, Sodium 136, Potassium 4.5, Chloride 103, Carbon Dioxide 19.5 L, Anion Gap 14, BUN 20 H, Creatinine 0.73, Estim Creat Clear Calc 131.68, Est GFR (MDRD) Non-Af 107, BUN/Creatinine Ratio 26.9 H, Glucose 84, Calcium 9.1, Total Bilirubin 0.65, AST 20, ALT 33, Alkaline Phosphatase 130 H, Troponin T High Sens < 6 D, Total Protein 7.8, Albumin 3.8, Globulin 4.0, Albumin/Globulin Ratio 1.0 10/14/24 15:20: Troponin T Hi Sens 2 Hr < 6, C-React Prot Ext Range 205.00 H Imaging Radiology Impression Brain CT 10/14/24 12:22 IMPRESSION: NORMAL NONCONTRAST HEAD CT. Reading Location: [id number] Chest X-Ray 10/14/24 12:50 IMPRESSION: No Acute Findings. Reading Location: [id number] Assessment & Plan Assessment/Plan (1) Syncope: PLAN: Plan Patient is a 39-year-old female who presented [facility] ED on 10/14/2024 with syncope. 1. Syncopal episode in setting of recently diagnosed acute pericarditis ? Admit under observation status to PCU. Cardiology consulted. Recent hospitalization at [facility] from 10/07 to 10/11, see HPI for further details. In short, she was transferred from our ED over there on 10/[address] Thompson' concern for a possible bacterial pericarditis. Had cardiac MRI done there that showed acute pericarditis with early constrictive features (no tamponade physiology), and ID and cardiology noted no significant concern for bacterial pericarditis. She was started on ibuprofen and colchicine there with some improvement and discharged home. CRP 318, ESR 101 on 10/08 there. Presented now with syncopal episode at home. Discussed with Dr. Thompson and seems most likely due to decreased preload from some degree of dehydration. She was given 2 L of IV fluids in the ED. CRP improved at 205 but remains very elevated. ESR stable at 105. Will continue ibuprofen and colchicine for now. Limited echo ordered. Appreciate further cardiology recommendations. Notably, there was consideration of transferring patient to [facility] but was determined that patient can remain here at this time. 2. Anxiety/depression ? Continue home sertraline. 3. GERD ? Continue home PPI. 4. Class I obesity ? BMI 34 on admit. Complicates hospital course and care. DVT prophylaxis: Lovenox CODE STATUS: Full code, verified Expected disposition: Home, 1 to 2 days Total clinical time spent by myself addressing the patient's medical issues, reviewing all the data, and collaborating with patient's care team: 79 minutes. Charges/Coding Visit Charges Inpatient E&M: 57382 Init Hosp L3
[2024-10-14] MEDS: MELATONIN 3 MG TABLET PO (23:41)
[2024-10-15] VITALS (7 sets, daily range): BP systolic 94–115; BP diastolic 57–80; PULSE 84–108; RESP 16–18; TEMP 36.2–37.3; O2SAT 93–98
--- NOTE | 2024-10-15 07:34 | PN.HOSP_ITS ---
Reason for Visit Chief Complaint: Syncope Objective Data Objective Data Vital Signs: Vital Signs Temp Pulse Resp BP Pulse Ox O2 Del Method 98.6 F 108 H 18 115/80 96 Room Air 10/15/24 04:00 10/15/24 04:00 10/15/24 04:00 10/15/24 04:00 10/15/24 04:00 10/15/24 04:00 Oxygen Delivery Method Room Air Weight: 225 lb 15.581 oz Body Mass Index (BMI) 34.3 Intake & Output: Intake and Output for Last 24 Hours 10/13/24 10/14/24 10/15/24 23:59 23:59 23:59 Intake Total 1616.65 / 1616.65 Output Total 400 / 400 Balance 1616.65 / 1616.65 -400 / -400 Lab / Micro Data 10/14/24 11:20 10/14/24 11:20 Labs: Laboratory Results - last 24 hr 10/14/24 11:20: WBC 24.1 H, RBC 4.34, Hgb 11.6 L, Hct 36.3 L, MCV 83.6, MCH 26.7 L, MCHC 32.0, RDW Std Deviation 52.6 H, RDW Coeff of [place]on 17.2 H, Plt Count 563 H , MPV 9.2, Immature Gran % (Auto) 0.600, Neut % (Auto) 87.0 H, Lymph % (Auto) 6.4 L, [place] % (Auto) 5.5, Eos % (Auto) 0.3, Baso % (Auto) 0.2, Absolute Neuts (auto) 21.0 H, Absolute Lymphs (auto) 1.53, Nucleated RBC % 0, Platelet Estimate MOD INC, ESR 105 H, Sodium 136, Potassium 4.5, Chloride 103, Carbon Dioxide 19.5 L, Anion Gap 14, BUN 20 H, Creatinine 0.73, Estim Creat Clear Calc 131.68, Est GFR (MDRD) Non-Af 107, BUN/Creatinine Ratio 26.9 H, Glucose 84, Calcium 9.1, Total Bilirubin 0.65, AST 20, ALT 33, Alkaline Phosphatase 130 H, Troponin T High Sens < 6 D, Total Protein 7.8, Albumin 3.8, Globulin 4.0, Albumin/Globulin Ratio 1.0 10/14/24 15:20: Troponin T Hi Sens 2 Hr < 6, C-React Prot Ext Range 205.00 H Radiography Diagnostic Testing: Radiology Impression Brain CT 10/14/24 12:22 IMPRESSION: NORMAL NONCONTRAST HEAD CT. Reading Location: [facility] Chest X-Ray 10/14/24 12:50 IMPRESSION: No Acute Findings. Reading Location: [facility] Physical Exam Narrative Patient stated that she had a near syncope with dizziness and lightheadedness and sit down. She did not had fall but had near fall situation x 2. Rest as documented in H&P. Blood pressure was low in the morning systolic 90s. IV fluid normal saline bolus ordered. Physical exam General: Alert, Oriented x3, Cooperative. Fatigued HEENT: Atraumatic, PERRLA, EOMI, Normocephalic. Oral: Oral mucosa dry no Gingival or Mucosal Lesions/ Ulcerations Neck: Supple, No JVD, Negative Carotid Bruits Chest wall/Lungs: Air entry diminished in bilateral lung bases. No crepitation/rhonchi Cardiovascular: Regular rate and rhythm, Normal S1,S2, No M/G/R Abdomen: Bowel Sounds Present, Soft, Non Tender, Non-Distended : No dysuria. No renal angle tenderness. No suprapubic tenderness. Extremities: No edema, Capillary Refill Less than 3 Seconds Skin: No rashes, No breakdown Musculoskeletal: No Tenderness to Palpation of Joints or Extremities Neurological: Cranial nerves II-XII grossly intact, DTR 2+/4. No acute focal neurological deficit. Psych/Mental Status: Flat affect Assessment & Plan Assessment/Plan (1) Syncope: PLAN: Plan Patient is a 39-year-old female who presented [facility] ED on 10/14/2024 with syncope. 1. Syncopal near syncopal episode in setting of recently diagnosed acute pericarditis probably due to hypotension/hypovolemia ? Admit under observation status to PCU. Cardiology consulted. Recent hospitalization at [facility] from 10/07 to 10/11, see HPI for further details. In short, she was transferred from our ED over there on 10/[address] Thompson' concern for a possible bacterial pericarditis. Had cardiac MRI done there that showed acute pericarditis with early constrictive features (no tamponade physiology), and ID and cardiology noted no significant concern for bacterial pericarditis. She was started on ibuprofen and colchicine there with some improvement and discharged home. CRP 318, ESR 101 on 10/08 there./Near syncopal discussed with Dr. Thompson and seems most likely due to decreased preload from some degree of dehydration. She was given 2 L of IV fluids in the ED. CRP improved at 205 but remains very elevated. ESR stable at 105. Patient states she did not pass out or LOC but was dizzy and lightheaded but to the admitting hospitalist he states he passed out. He also had near fall situation. 10/15: Discussed with Dr. Thompson in the morning. Patient seems hypovolemic probably due to diarrhea reported from the patient and side effect of colchicine. BP was 96/61 sitting, laying 107/67 in supine 115/80. On sitting up patient feels mildly dizzy. No nausea or vomiting. Low blood pressure/hypotension therefore IV fluid normal saline bolus 1 L and then continuous 100 mL/h. Continue colchicine and ibuprofen. Repeat 2D echo shows septal bounce and paradoxical septal motion no longer present which was reported in the echo of 10/07. 2. Anxiety/depression ? Continue home sertraline. 3. GERD ? Continue home PPI. 4. Class I obesity ? BMI 34 on admit. Complicates hospital course and care. DVT prophylaxis: Lovenox CODE STATUS: Full code, verified Expected disposition: Home, 1 to 2 days Charges/Coding Visit Charges Inpatient E&M: 86034 Subs Hosp L2
--- NOTE | 2024-10-15 07:37 | PCM.CONS.C ---
Assessment & Plan Assessment/Plan (1) Syncope: QUALIFIERS: Syncope type: unspecified Qualified Code(s): R55 - Syncope and collapse PLAN: Patient describes a syncopal spell that occurred twice yesterday in her home environment. She did not fall or get hurt she was able to get herself down to the floor in time to avoid any trauma. She has not had anything like this before she denied any palpitations she did have a prodrome of visual and auditory sensations that allowed her to get down to the floor. There was no seizure activity documented. The patient was able to get back to the bed with some assistance from her mother. Upon arrival in the emergency department the patient received IV fluids she has not had orthostatics checked since that point in time. Telemetry does not show any significant arrhythmias. She does have a sinus tachycardia that has been present since she was originally evaluated last week. That evaluation noticed constrictive changes on her echocardiogram and a very thick pericardium. She was transferred to [facility] where she was evaluated and was not felt to need drainage of her what appeared to be stranded moderate pericardial effusion. The patient's chest pains resolved with treatment. It appears this is probably a combination of moderate dehydration and her pericardial effusion that coincided to precipitate this symptom. A repeat echocardiogram is being ordered as a limited echo to look at the pericardial effusion and rule out tamponade physiology. The patient denies any lower extremity edema she does not have classic symptoms of constrictive pericarditis at this time. Will repeat the echo as noted and discussed the situation with her physicians at [facility] after the results of the echo and orthostatic blood pressures have been evaluated. I did go over with the patient in detail about keeping well-hydrated as well as compression socks and being very careful with change of position. (2) Pericarditis: QUALIFIERS: Chronicity: acute Pericarditis type: idiopathic Qualified Code(s): I30.0 - Acute nonspecific idiopathic pericarditis PLAN: Patient has a thickened pericardium by MRI and echocardiography. She has been on colchicine and ibuprofen with resolution of her chest symptoms. Her ESR is also improved. But is still significantly elevated. Her cardiac enzymes are undetectable consistent with no progressive myocarditis. Will repeat a limited echo and discussed with her physicians at [facility] following the results. PLAN: Plan 1. Limited 2D echo this morning. 2. Continue with hydration. 3. Check orthostatic blood pressures. 4. Further recommendations once the results of these interventions are available. 5. At this point in time would defer transfer to [facility] until we have the results of these test as this may be correctable with rehydration and utilizing compression socks for support. HPI Consult Data Date of Consult: 10/15/24 HPI Narrative Reason for Consultation: Syncope HPI Narrative: BRYAN LAN, is a 39 F who presents with a history of recently diagnosed pericarditis. The patient reports that she got up yesterday morning from recumbent position and went into the bathroom. When she was in the bathroom she started to have visual changes and ringing in her ears. She was able to get laid down on the bathroom floor and laid there for 15 to 20 minutes. This slowly resolved and she got back to bed. There was no one that witnessed this she did not fall and she did not hit her head. She does not feel like she went completely out. Her mother comes to her house in the mornings to help her with her autistic son to get ready for school and she found her and helped her back to the bed. Subsequently the patient got up again later the same morning and a similar event occurred. She then came to the emergency room for further evaluation. Patient had an echocardiogram done here first week of October that showed pericardial effusion with stranding consistent with organized effusion and thickened pericardium. At that time she was having significant pain in her left side of her chest and left shoulder area. Given the fact that she had been on Sunday rounds of antibiotics over the last 2 weeks the concern was this was infected and she was transferred to [facility]. At [facility] she wondered underwent MRI and was diagnosed with thickened pericardium consistent with acute pericarditis. She was treated with colchicine and ibuprofen and her pains have completely resolved. The patient does report she had not been drinking very much over the last couple of days. But this was a new event for her she has never had this type of event as far as a syncopal or near syncopal spells. The patient denied any chest pain she denied any palpitations or fluttering's at the time of the event. Patient denies any history of bleeding issues. She denies any nausea and vomiting denies any diarrhea. Patient has no history of diabetes or other neuropathies. Patient denies any lower extremity edema denies any PND orthopnea and denies any significant shortness of breath. Since admission the patient has had resting sinus tachycardia in the 100-120 bpm range. This is unchanged from what she had back when she first presented first week of October. The patient was planned to return to [facility] for further repeat echocardiogram and evaluations. A limited echocardiogram is pending at this time the patient has been rehydrated with IV fluids she has not had orthostatics rechecked at this time. [facility] Medical History (Updated 10/15/24 @ 07:[address] Chong Thompson MD) Pericarditis Depression History of steroid therapy Easy bruising Back pain Syncope Heartburn Non-smoker History of pain when walking History of edema Bradycardia Fibromyalgia Anxiety Home Medications ?Medication ?Instructions ?Recorded ?Last Taken ?Type hydroxyzine HCl 10 mg tablet 10 - 20 mg PO TID PRN PRN anxiety 05/16/24 Unknown History [id number] carb-vit K 2 tab PO DAILY 05/22/24 Unknown History 18 mg iron-400 mcg-500 mg tablet sertraline 100 mg tablet 100 mg PO DAILY 10/06/24 Unknown History colchicine 0.6 mg tablet 0.6 mg PO BID 10/14/24 Unknown History ibuprofen 600 mg tablet 600 mg PO TID 10/14/24 Unknown History ondansetron 4 mg disintegrating 4 mg PO Q6H PRN PRN nausea/vomiting 10/14/24 Unknown History tablet pantoprazole 40 mg tablet,delayed 40 mg PO DAILY 10/14/24 Unknown History release Allergy/AdvReac Type Severity Reaction Status Date / Time cat dander (cats) Allergy WATERY Verified 10/07/24 09:58 EYES, CONGESTION grass pollen Allergy Other Verified 10/07/24 09:58 mold Allergy Other Verified 10/07/24 09:58 Family History Other Breast cancer Hypertension Surgical History History of hysteroscopy History of tonsillectomy Social History Smoking Status: Never smoker alcohol intake: never substance use type: does not use what type of physical activity do you participate in: walking frequency: 1-2 times per week ROS Constitutional Constitutional: Reports as per HPI Eyes Eyes: Reports systems reviewed and no addt'l complaints, except as documented ENT HEENT: Reports systems reviewed and no addt'l complaints, except as documented Cardiovascular Cardiovascular: Reports as per HPI Respiratory/Chest Respiratory/Chest: Reports as per HPI Gastrointestinal Gastrointestinal: Reports as per HPI Genitourinary Genitourinary: Reports systems reviewed and no addt'l complaints, except as documented Musculoskeletal Musculoskeletal: Reports systems reviewed and no addt'l complaints, except as documented Integumentary Integumentary: Reports systems reviewed and no addt'l complaints, except as documented Neurologic Neurologic: Reports as per HPI Psychiatric Psychiatric: Reports as per HPI Endocrine Endocrinology: Reports systems reviewed and no addt'l complaints, except as documented Hematologic/Lymphatic Hematologic/Lymphatic: Reports as per HPI Allergic/Immunologic Allergic/Immunologic: Reports systems reviewed and no addt'l complaints, except as documented Physical Exam Const alert and oriented x3 HEENT normocephalic Eyes EOMs intact bilaterally Neck no JVD and no carotid bruits Chest inspection of chest normal Resp normal respiratory effort and clear to auscultation bilaterally Cardio Cardio Narrative: Distant heart tones Rate: tachycardic Rhythm: regular rhythm Heart Sounds: S1 normal and S2 normal; Negative for click, gallop or murmur GI soft to palpation Extremity no pedal edema Neuro Neuro Narrative: Alert and oriented x 3 Psych mental status grossly normal Charges/Coding Visit Charges Inpatient E&M: 15636 Init Hosp L2 Objective Data Vital Signs: Vital Signs Temp Pulse Resp BP Pulse Ox O2 Del Method 98.6 F 108 H 18 115/80 96 Room Air 10/15/24 04:00 10/15/24 04:00 10/15/24 04:00 10/15/24 04:00 10/15/24 04:00 10/15/24 04:00 Oxygen Delivery Method Room Air Weight: 225 lb 15.581 oz Body Mass Index (BMI) 34.3 Intake & Output: Intake and Output for Last 24 Hours 10/13/24 10/14/24 10/15/24 23:59 23:59 23:59 Intake Total 1616.65 / 1616.65 Output Total 400 / 400 Balance 1616.65 / 1616.65 -400 / -400 Lab / Micro Data Attestation: I reviewed the patient's lab results. 10/14/24 11:20 10/14/24 11:20 Labs: Laboratory Results - last 24 hr 10/14/24 11:20: WBC 24.1 H, RBC 4.34, Hgb 11.6 L, Hct 36.3 L, MCV 83.6, MCH 26.7 L, MCHC 32.0, RDW Std Deviation 52.6 H, RDW Coeff of Fallon 17.2 H, Plt Count 563 H, MPV 9.2, Immature Gran % (Auto) 0.600, Neut % (Auto) 87.0 H, Lymph % (Auto) 6.4 L, [place] % (Auto) 5.5, Eos % (Auto) 0.3, Baso % (Auto) 0.2, Absolute Neuts (auto) 21.0 H, Absolute Lymphs (auto) 1.53, Nucleated RBC % 0, Platelet Estimate MOD INC, ESR 105 H, Sodium 136, Potassium 4.5, Chloride 103, Carbon Dioxide 19.5 L, Anion Gap 14, BUN 20 H, Creatinine 0.73, Estim Creat Clear Calc 131.68, Est GFR (MDRD) Non-Af 107, BUN/Creatinine Ratio 26.9 H, Glucose 84, Calcium 9.1, Total Bilirubin 0.65, AST 20, ALT 33, Alkaline Phosphatase 130 H, Troponin T High Sens < 6 D, Total Protein 7.8, Albumin 3.8, Globulin 4.0, Albumin/Globulin Ratio 1.0 10/14/24 15:20: Troponin T Hi Sens 2 Hr < 6, C-React Prot Ext Range 205.00 H Rhythm Strip Rhythm Strip: Sinus Tach Rate: 100 Ectopy: None Cardiology Labs/Tests 10/14/24 11:20: WBC 24.1 H, RBC 4.34, Hgb 11.6 L, Hct 36.3 L, MCV 83.6, MCH 26.7 L, MCHC 32.0, Plt Count 563 H, MPV 9.2, Immature Gran % (Auto) 0.600, Neut % (Auto) 87.0 H, Lymph % (Auto) 6.4 L, [place] % (Auto) 5.5, Eos % (Auto) 0.3, Baso % (Auto) 0.2, Absolute Neuts (auto) 21.0 H, Nucleated RBC % 0, Sodium 136, Potassium 4.5, Chloride 103, Carbon Dioxide 19.5 L, Anion Gap 14, BUN 20 H, Creatinine 0.73, Est GFR (MDRD) Non-Af 107, BUN/Creatinine Ratio 26.9 H, Glucose 84, Calcium 9.1, Total Bilirubin 0.65 Rhythm: EKG: ECHO: Stress Test: Cardiac Cath: PCI: CT Surgery: Holter monitor: EPS: PPM: CXR: Chest CT Scan: Radiography Diagnostic Testing: Radiology Impression Brain CT 10/14/24 12:22 IMPRESSION: NORMAL NONCONTRAST HEAD CT. Reading Location: [id number] Chest X-Ray 10/14/24 12:50 IMPRESSION: No Acute Findings. Reading Location: [id number] Risk Score for UA/STEMI Assesmment (YES = 1) Risk Stratification Applicable: No
[2024-10-15] MEDS: 0.9% Normal Saline (1000mL) 1,000 ML 500 ML IV (08:50)
[2024-10-15] MEDS: Lactated Ringers 1,000 ML 100 ML IV ×2 (11:33→21:26)
[2024-10-16 03:40] VITALS: BP 102/60; PULSE 83; RESP 18; TEMP 35.9; O2SAT 99
[2024-10-16 07:28] VITALS: O2SAT 95
[2024-10-16 10:30] VITALS: BP 109/71; BP 110/63; BP 98/74; PULSE 103; PULSE 107; RESP 8; TEMP 36.9; O2SAT 100
[2024-10-16] MEDS: Polyethylene Glycol 3350 17 GM PACKET PO (10:45)
--- NOTE | 2024-10-16 11:38 | NURSING ---
This RN into room with PT & OT for their evaluation. Orthos obtained while getting pt out of bed per protocol. PT/OT assisted pt into bathroom and walked around bed to sit in chair. As pt was ambulating, she reported starting to feel very dizzy, very cold, & shaky. Pt assisted into chair, observed to be very pale & waxy with tremors. Pt stated her head is now pounding, her ears are ringing, and her vision is going black. Leaned pt back and elevated feet. Obtained BP 106/65 HR 90 100% RA. Pt stated after a few minutes that the symptoms were improving. Note pt color has returned and tremors have lessened. Pt left reclined in chair with call light in reach. Pt verbalized understanding to call if she needs assistance. Discussed with Dr Richter, verbal orders for labs obtained.
[2024-10-16] MEDS: 0.9% Saline Lock 10 ML Syringe IV (12:36)
[2024-10-16 13:04] LABS: Hematocrit 29.9 % (37-47); Hemoglobin 9.6 g/dL (12.0-15.0); Immature Granulocytes Count 0.170 X10^3/uL (0.0-0.0); Mean Corp Hgb Conc 32.1 g/dL (32-36); Mean Corpuscular Volume 83.3 fL (81-99); Mean Platelet Vol. 9.4 fl (6.2-12.0); NRBC Flagged by Analyzer 0 % (0-5); POSITIVE DIFFERENTIAL YES; Platelet Count 419 K/mm3 (150-450); RBC Distribution Width CV 16.5 % (11.6-14.6); RBC Distribution Width SD 50.2 fl (35.1-43.9); Red Blood Count 3.59 M/mm3 (4.2-5.4); White Blood Count 20.1 K/mm3 (4.4-11.0)
[2024-10-16 13:06] LABS: Differential Indicated SCAN CRITERIA MET
[2024-10-16 13:20] LABS: CRP 317.00 mg/L (0.0-3.0)
[2024-10-16 13:22] LABS: AST(SGOT) 61 U/L (<=31); Alanine Aminotransfer ALT/SGPT 78 U/L (<=34); Albumin, Serum 3.2 g/dL (3.5-5.0); Alkaline Phosphatase 223 U/L (35-104); Anion Gap 14 (5-15); BUN 9 mg/dL (4-19); BUN/Creat Ratio 13.4 RATIO (10-20); Calcium,Total 8.8 mg/dL (7.6-11.0); Carbon Dioxide 19.0 mmol/L (21.0-32.0); Chloride 103 mmol/L (98-108); Estimated Creatinine Clearance 147.82 ml/min (50-250); Globulin 4.1 g/dL (2.2-4.2); Glucose 112 mg/dL (70-99); Potassium 3.7 mmol/L (3.3-5.1)
[2024-10-16 13:56] LABS: Reactive Lymphocyte 1+
--- NOTE | 2024-10-16 14:11 | CT_ITS ---
PROCEDURE: CTA CHST, ABD, PEL W AND/OR WO 10/16/2024 REASON FOR EXAM: LEUKOCYTOSIS Bacterial pericarditis. TECHNIQUE: Procedure Code: CTCTA.CHAP.2 Modality: CT Procedure: CTA CHST, ABD, PEL W AND/OR WO Coronal and Sagittal reconstruction series were provided. One or more dose reduction techniques were used (e.g., Automated exposure control, adjustment of the mA and/or kV according to patient size, use of iterative reconstruction technique. CONTRAST: Isovue 370 VOLUME: 100 mL RADIATION DOSE SUMMARY: CTDlvol: 16.75 mGy DLP: 1311.41 mGycm COMPARISON: Prior study dated October 07, 2024. FINDINGS: CHEST: Lines and tubes: EKG electrodes are seen. Mediastinum: Small benign-appearing mediastinal lymph nodes. Heart: Moderate-sized pericardial effusion. This has increased slightly as compared to prior study. Thoracic Aorta: No thoracic aortic aneurysm or dissection. Lungs and Airways: Small bilateral pleural effusions with bibasilar compressive atelectasis slightly worse on the left side. There has been no change since prior study. Bones: Unremarkable Other: Small stable bilateral axillary lymph nodes. ABDOMEN AND PELVIS: Liver: Mild hepatomegaly. No focal lesion is seen. Gallbladder: Sludge or tiny gallstones are seen along the dependent portion of the gallbladder lumen. Spleen: Normal size. Pancreas: Normal size without evidence of mass surrounding inflammation or ductal dilation. Adrenals: Unremarkable Kidneys: Normal renal sizes. No hydronephrosis. Bladder: Unremarkable Reproductive Organs: IUD is seen within the uterus. Bowel: Unremarkable Vasculature: The abdominal aorta and IVC are normal. Peritoneum / Retroperitoneum: Unremarkable Bones: Unremarkable CT/CTA Chst, Abd, Pel W and/or WO IMPRESSION: Persistent moderate pericardial effusion. Small bilateral pleural effusions with bibasilar dependent atelectasis slightly worse on the left side. Reading Location: [id number]
--- NOTE | 2024-10-16 14:40 | PCM.RX.CS ---
Consult Antibiotic Management Pharmacy has been consulted to manage selected antibiotic: Vancomycin Type of Intervention Type of Consult: New start Suspected Infection Suspected Infection: Sepsis Labs Labs: Sodium 136 mmol/L (133-145) 10/16/24 12:20 Potassium 3.7 mmol/L (3.3-5.1) 10/16/24 12:20 Chloride 103 mmol/L (98-108) 10/16/24 12:20 Carbon Dioxide 19.0 mmol/L (21.0-32.0) L 10/16/24 12:20 Anion Gap 14 (5-15) 10/16/24 12:20 BUN 9 mg/dL (4-19) 10/16/24 12:20 Creatinine 0.64 mg/dL (0.70-1.20) L 10/16/24 12:20 Est GFR (MDRD) Non-Af 115 (>60) 10/16/24 12:20 BUN/Creatinine Ratio 13.4 RATIO (10-20) 10/16/24 12:20 Glucose 112 mg/dL (70-99) H 10/16/24 12:20 Microbiology Microbiology: Microbiology 10/14/24 15:50 Blood Culture (Wb) - Right Wrist Blood Culture - Preliminary No growth in 48 hours. 10/14/24 15:20 Blood Culture (Wb) - Right Wrist Blood Culture - Preliminary No growth in 48 hours. Dosing Weight Weight used for dosin kg Estimated Creatinine Clearance Estimated Creatinine Clearance: 148 Goal Trough Goal Trough: 15-20 mcg/mL Pharmacy Plan for Drug Dosing Pharmacy Plan for Drug Dosing: Pharmacy Service will continue to monitor and adjust dosing as required. NEW START IV VANCOMYCIN Consulting Physician: Dr. Richter Indication: Sepsis/failed UTI outpatient treatment Goal Trough: 15-20 SrCr: 0.64 CrCl: 148 WBC: 20.1 Comments: AdjBW: 82 kg Cultures: - 10/16 blood: pending - 10/14 blood: NG Vancomycin Dose: 1500 mg Q12H with first dose 10/17 @ 0300 Pending Level: 10/18 @ 0230 Date/Time Labs Ordered Labs to be done on [date and time ordered]: 10/18/24 @ 0230
[2024-10-16 14:53] LABS: Procalcitonin 0.09 ng/mL (<=0.10)
[2024-10-16] MEDS: 0.9% Normal Saline (250mL Bag) 250 ML 15 ML IV ×2 (15:30→15:32)
[2024-10-16] MEDS: Vancomycin HCl 2,000 MG in 0.9% Normal Saline (500mL Bag) 500 ML 250 MG IV (15:32)
[2024-10-16] MEDS: Piperacil/Tazobactam 3.375 GM in 0.9% Normal Saline (50mL MB+) 50 ML IV ×2 (15:32→22:09)
--- NOTE | 2024-10-16 15:36 | PN.HOSP_ITS ---
Reason for Visit Chief Complaint: Syncope Subjective Subjective Patient states that she thought she was feeling a little bit better however when she went to get out of bed she started having shakes, had a near syncopal episode and has been having rigors ongoing after this. She states that typically she is able to fight through things without a problem but she is really having difficulties with this. She has generally not felt well since she was diagnosed with pericarditis but felt like she was doing so so after she was discharged but never back to baseline. She is complaining of a headache that starts in her neck but does not have any significant neck stiffness or concerns of meningismus. She does interact appropriately and able to answer questions. Denies any joint pain but has widespread myalgias. Objective Data Objective Data Vital Signs: Vital Signs Temp Pulse Resp BP Pulse Ox O2 Del Method 98.4 F 103 H 8 L 98/74 100 Room Air 10/16/24 10:30 10/16/24 10:30 10/16/24 10:30 10/16/24 10:30 10/16/24 10:30 10/16/24 10:30 Oxygen Delivery Method Room Air Weight: 102.5 kg Body Mass Index (BMI) 34.3 Intake & Output: Intake and Output for Last 24 Hours 10/14/24 10/15/24 10/16/24 23:59 23:59 23:59 Intake Total 1616.65 / 1616.65 2971.68 / 2971.68 1000 / 1000 Output Total 1800 / 1800 600 / 600 Balance 1616.65 / 1616.65 1171.68 / 1171.68 400 / 400 Lab / Micro Data 10/16/24 12:20 10/16/24 12:20 Labs: Laboratory Results - last 24 hr 10/16/24 12:20: WBC 20.1 H, RBC 3.59 L, Hgb 9.6 L, Hct 29.9 L, MCV 83.3, MCH 26.7 L, MCHC 32.1, RDW Std Deviation 50.2 H, RDW Coeff of Fallon 16.5 H, Plt Count 419, MPV 9.4, Immature Gran % (Auto) 0.800, Neut % (Auto) 84.2 H, Lymph % (Auto) 5.0 L, [place] % (Auto) 9.7, Eos % (Auto) 0.2, Baso % (Auto) 0.1, Absolute Neuts (auto) 16.9 H, Absolute Lymphs (auto) 1.00, Nucleated RBC % 0, Reactive Lymphocytes 1+, ESR 102 H, Sodium 136, Potassium 3.7, Chloride 103, Carbon Dioxide 19.0 L, Anion Gap 14, BUN 9, Creatinine 0.64 L, Estim Creat Clear Calc 147.82, Est GFR (MDRD) Non-Af 115, BUN/Creatinine Ratio 13.4, Glucose 112 H, Calcium 8.8, Total Bilirubin 0.45, AST 61 H, ALT 78 H, Alkaline Phosphatase 223 H, C-React Prot Ext Range 317.00 H, Total Protein 7.3, Albumin 3.2 L, Globulin 4.1, Albumin/Globulin Ratio 0.8 L, Procalcitonin 0.09 Micro: Microbiology 10/14/24 15:50 Blood Culture (Wb) - Right Wrist Blood Culture - Preliminary No growth in 48 hours. 10/14/24 15:20 Blood Culture (Wb) - Right Wrist Blood Culture - Preliminary No growth in 48 hours. Radiography Diagnostic Testing: Radiology Impression Chest/Abdomen/Pelvis CTA 10/16/24 14:11 IMPRESSION: Persistent moderate pericardial effusion. Small bilateral pleural effusions with bibasilar dependent atelectasis slightly worse on the left side. Reading Location: [facility] Rhythm Strip Rhythm Strip: Sinus Tach Rate: 100 Ectopy: None Physical Exam Const alert, oriented x3 and well nourished; Negative for average body habitus or healthy appearing Constitutional Narrative: Ill-appearing, obese, middle-aged, white female, sitting up in bed, at bedside, sitting up in bed with multiple blankets and rigors noted HEENT head/scalp atraumatic, moist oral mucous membranes and oropharynx normal Eyes EOMs intact bilaterally; Negative for conjunctivae normal Eyes Narrative: Mild conjunctival pallor bilaterally, no scleral icterus Neck supple Neck Narrative: Trachea midline, no thyroid enlargement Resp normal respiratory effort, no retractions, no use of accessory muscles and clear to auscultation bilaterally Auscultation: Negative for rales, rhonchi or wheezes Cardio regular rate, regular rhythm, S1 normal heart sound, S2 normal heart sound, no murmurs, no rub, no gallops and no clicks GI normal to inspection, nondistended, normoactive bowel sounds, soft to palpation and non-tender Extremity no clubbing, cyanosis or edema Extremity Narrative: 2+ pedal pulses, 2+ radial pulses Neuro CN's II-XII intact bilaterally, moves all extremities and no focal motor deficits Neuro Narrative: Mild generalized weakness noted but no focal deficits Speech: speech normal Psych affect normal Mood & Affect: anxious Assessment & Plan Assessment/Plan (1) Lightheadedness: (2) Headache: (3) Constrictive pericarditis: (4) Syncope: QUALIFIERS: Syncope type: unspecified Qualified Code(s): R55 - Syncope and collapse (5) Leukocytosis: (6) Anemia: (7) Rigors: (8) Elevated erythrocyte sedimentation rate: (9) Elevated C-reactive protein (CRP): (10) Transaminitis: PLAN: Plan Lightheadedness with presyncope/headache/leukocytosis -Patient with recent diagnosis of constrictive pericarditis and etiology was unclear - Workup there is still pending so - Markedly elevated sed rate and CRP still - Check blood cultures - Procalcitonin - Check CT chest abdomen pelvis with contrast - Start broad-spectrum antibiotics in the short-term send-if procalcitonin is unremarkable - will check CARLOS with reflex, ANCA, C3, C4, CH 50, and Lyme titers as well as coxsackie A and B titers -Syncope does not appear to be related to cardiac manifestation as her echo improved Acute normocytic anemia - Etiology is unclear - Check iron studies - check ferritin - Check haptoglobin - Autoimmune workup as noted - check reticulocyte count Transaminitis - Suspect related to the above - Will trend - Only mild at this time Proteinuria/hematuria - Recheck UA Constrictive pericarditis - Echo appears to be improved with lessening pericardial effusion and decreased septal bounce - Doubt syncope is related to this - Workup for etiology is still in progress - Continue colchicine and ibuprofen - May need to consider steroids depending on the above workup--> 1 g daily GERD - Continue home PPI Obesity - BMI 34.4 - Recommend weight loss - Complicates treatment, prognosis, outcomes DVT prophylaxis - Continue subcu Lovenox CODE STATUS - Full code Charges/Coding Visit Charges Inpatient E&M: 99281 [facility] Hosp L3
[2024-10-16 16:26] LABS: Mucous, Urine 0 SEEN /hpf (<or=2+)
[2024-10-16 16:28] LABS: Color, Urine Yellow (Yellow); Glucose, Dipstick Normal (Normal); Ketone-Dipstick Negative (Negative); Leukocyte Esterase-Dipstick 25 /ul (Negative); Nitrite-Dipstick Negative (Negative); Occult Blood-Urine 25 /ul (Negative); Protein-Dipstick 30 mg/dl (Negative); Specific Gravity, Urine 1.010 (1.002-1.030); Urine Bilirubin Dipstick Negative (Negative)
[2024-10-16 16:46] LABS: Red Blood Cells-Urine 0-5 SEEN /hpf (0-5); Squamous Epithelial Cells - UA 0-5 SEEN /hpf (5-10); Transitional Epithelial - Ur 0-5 SEEN /hpf (0-5)
[2024-10-16 18:00] LABS: Platelet Count 403 K/mm3 (150-450)
[2024-10-16 18:22] LABS: Ferritin 335 ng/mL (22-378)
[2024-10-16 18:32] VITALS: BP 101/63; PULSE 95; RESP 18; TEMP 37.1; O2SAT 97
[2024-10-16 19:06] LABS: Reticulocyte Count 1.94 % (0.5-1.5)
[2024-10-16 19:07] LABS: Immature Reticulocyte Fraction 8.70 % (3.00-15.90)
[2024-10-16 21:56] VITALS: BP 111/66; PULSE 80; RESP 16; TEMP 36.7; O2SAT 94
--- NOTE | 2024-10-17 02:30 | NURSING ---
Pt c/o of clavicle, shoulder, neck pain rates 08/14. Administered prn oxy & tyl, will continue to monitor
[2024-10-17] MEDS: Vancomycin HCl 1,500 MG in 0.9% Normal Saline (500mL Bag) 500 ML 250 MG IV ×2 (02:36→15:36)
[2024-10-17 04:00] VITALS: BP 96/64; PULSE 99; RESP 16; TEMP 36.5; O2SAT 99
[2024-10-17 05:47] LABS: Hematocrit 30.4 % (37-47); Hemoglobin 9.3 g/dL (12.0-15.0); Immature Granulocytes Count 0.050 X10^3/uL (0.0-0.0); Mean Corp Hgb Conc 30.6 g/dL (32-36); Mean Corpuscular Volume 85.6 fL (81-99); Mean Platelet Vol. 11.1 fl (6.2-12.0); NRBC Flagged by Analyzer 0 % (0-5); Platelet Count 275 K/mm3 (150-450); RBC Distribution Width CV 17.1 % (11.6-14.6); RBC Distribution Width SD 53.5 fl (35.1-43.9); Red Blood Count 3.55 M/mm3 (4.2-5.4); White Blood Count 12.0 K/mm3 (4.4-11.0)
[2024-10-17] MEDS: Piperacil/Tazobactam 3.375 GM in 0.9% Normal Saline (50mL MB+) 50 ML IV ×3 (06:10→21:17)
[2024-10-17 06:34] LABS: AST(SGOT) 49 U/L (<=31); Alanine Aminotransfer ALT/SGPT 88 U/L (<=34); Albumin, Serum 3.1 g/dL (3.5-5.0); Alkaline Phosphatase 208 U/L (35-104); Anion Gap 11 (5-15); BUN 8 mg/dL (4-19); BUN/Creat Ratio 11.4 RATIO (10-20); Calcium,Total 8.3 mg/dL (7.6-11.0); Carbon Dioxide 20.9 mmol/L (21.0-32.0); Chloride 108 mmol/L (98-108); Estimated Creatinine Clearance 137.10 ml/min (50-250); Globulin 3.7 g/dL (2.2-4.2); Glucose 99 mg/dL (70-99); Iron 17 ug/dL (50-170); Iron Binding Capacity,Unsat 197 ug/dL (228-428); Magnesium 2.5 mg/dL (1.5-2.2); Potassium 4.0 mmol/L (3.3-5.1)
[2024-10-17 06:48] LABS: Iron Binding Capacity,Total 214 ug/dL (250-450)
--- NOTE | 2024-10-17 08:19 | PCM.PN.HOSP ---
Reason for Visit Chief Complaint: Syncope Subjective Subjective Patient states she may feel just a little bit better today but still feeling pretty rough. Still having presyncopal episodes when getting up. We did discuss that thus far cultures are negative and my conversation with Dr. Zavala (cardiology) over at [facility] with regards to initiating high-dose steroids if infectious etiology is ruled out. Objective Data Objective Data Vital Signs: Vital Signs Temp Pulse Resp BP Pulse Ox O2 Del Method 97.7 F L 99 16 96/64 99 Room Air 10/17/24 04:00 10/17/24 04:00 10/17/24 04:00 10/17/24 04:00 10/17/24 04:00 10/17/24 04:00 Oxygen Delivery Method Room Air Weight: 102.5 kg Body Mass Index (BMI) 34.3 Intake & Output: Intake and Output for Last 24 Hours 10/15/24 10/16/24 10/17/24 23:59 23:59 23:59 Intake Total 2971.68 / 2971.68 2390.75 / 3190.75 1760 / 1760 Output Total 1800 / 1800 600 / 600 1100 / 1100 Balance 1171.68 / 1171.68 1790.75 / 2590.75 660 / 660 Lab / Micro Data 10/17/24 05:07 10/17/24 05:07 Labs: Laboratory Results - last 24 hr 10/16/24 12:20: WBC 20.1 H, RBC 3.59 L, Hgb 9.6 L, Hct 29.9 L, MCV 83.3, MCH 26.7 L, MCHC 32.1, RDW Std Deviation 50.2 H, RDW Coeff of [place] 16.5 H, Plt Count 419, MPV 9.4, Immature Gran % (Auto) 0.800, Neut % (Auto) 84.2 H, Lymph % (Auto) 5.0 L, [place] % (Auto) 9.7, Eos % (Auto) 0.2, Baso % (Auto) 0.1, Absolute Neuts (auto) 16.9 H, Absolute Lymphs (auto) 1.00, Nucleated RBC % 0, Reactive Lymphocytes 1+, ESR 102 H, Sodium 136, Potassium 3.7, Chloride 103, Carbon Dioxide 19.0 L, Anion Gap 14, BUN 9, Creatinine 0.64 L, Estim Creat Clear Calc 147.82, Est GFR (MDRD) Non-Af 115, BUN/Creatinine Ratio 13.4, Glucose 112 H, Calcium 8.8, Total Bilirubin 0.45, AST 61 H, ALT 78 H, Alkaline Phosphatase 223 H, C-React Prot Ext Range 317.00 H, Total Protein 7.3, Albumin 3.2 L, Globulin 4.1, Albumin/Globulin Ratio 0.8 L, Procalcitonin 0.09 10/16/24 16:20: Urine Color Yellow, Urine Clarity Clear, Urine pH 6.0, Ur Specific [place] 1.010, Urine Protein 30 H, Urine Glucose (UA) Normal, Urine Ketones Negative, Urine Occult Blood 25 H, Urine Nitrite Negative, Urine Bilirubin Negative, Urine Urobilinogen 1 H, Ur Leukocyte Esterase 25 H, Urine RBC 0-5 SEEN, Urine WBC 0-5 SEEN, Ur Squamous Epith Cells 0-5 SEEN, Ur Transition Epith Cell 0-5 SEEN, Urine Bacteria 0 SEEN, Urine Mucus 0 SEEN 10/16/24 17:39: Retic Count 1.94 H, Immature Retic Fraction 8.70, Retic Hgb Equivalent 24.8 L, Ferritin 335, Rheumatoid Factor 25.2 H, MANUEL-1 Antibody TNP, Sm (Contreras) Antibody TNP, SADDLE MECHANIC Antibody TNP, Scl-70 Scleroderma Ab TNP, Antichromatin Antibodies TNP, Centromere B Antibody TNP 10/17/24 05:07: WBC 12.0 H, RBC 3.55 L, Hgb 9.3 L, Hct 30.4 L, MCV 85.6, MCH 26.2 L, MCHC 30.6 L, RDW Std Deviation 53.5 H, RDW Coeff of [place] 17.1 H, Plt Count 275, MPV 11.1, Immature Gran % (Auto) 0.400, Neut % (Auto) 71.5 H, Lymph % (Auto) 15.9 L, [place] % (Auto) 10.3 H, Eos % (Auto) 1.6, Baso % (Auto) 0.3, Absolute Neuts (auto) 8.6 H, Absolute Lymphs (auto) 1.90, Nucleated RBC % 0, Sodium 140, Potassium 4.0, Chloride 108, Carbon Dioxide 20.9 L, Anion Gap 11, BUN 8, Creatinine 0.69 L, Estim Creat Clear Calc 137.10, Est GFR (MDRD) Non-Af 113, BUN/Creatinine Ratio 11.4, Glucose 99, Calcium 8.3, Phosphorus 2.9, Magnesium 2.5 H, Iron 17 L, TIBC 214 L, Iron Saturation 7.9 L, Unsaturated IBC 197 L, Total Bilirubin 0.29, AST 49 H, ALT 88 H, Alkaline Phosphatase 208 H, Total Protein 6.8, Albumin 3.1 L, Globulin 3.7, Albumin/Globulin Ratio 0.8 L Micro: Microbiology 10/14/24 15:50 Blood Culture (Wb) - Right Wrist Blood Culture - Preliminary No growth in 48 hours. 10/14/24 15:20 Blood Culture (Wb) - Right Wrist Blood Culture - Preliminary No growth in 48 hours. Radiography Diagnostic Testing: Radiology Impression Chest/Abdomen/Pelvis CTA 10/16/24 14:11 IMPRESSION: Persistent moderate pericardial effusion. Small bilateral pleural effusions with bibasilar dependent atelectasis slightly worse on the left side. Reading Location: [id number] Rhythm Strip Rhythm Strip: Sinus Tach Rate: 100 Ectopy: None Physical Exam Const alert, oriented x3, no apparent distress and well nourished; Negative for average body habitus or healthy appearing Constitutional Narrative: Ill-appearing, obese, middle-aged, white female, lying in bed, therapy services are at the bedside, appears more comfortable today without rigors at the time of my evaluation HEENT normocephalic, head/scalp atraumatic, hearing grossly normal bilaterally and moist oral mucous membranes HEENT Narrative: No thrush, Mallampati is 2-3 Resp normal respiratory effort, normal air movement, no retractions, no use of accessory muscles and clear to auscultation bilaterally Auscultation: Negative for rales, rhonchi or wheezes Cardio regular rate, regular rhythm, S1 normal heart sound, S2 normal heart sound, no murmurs, no rub, no gallops and no clicks GI normal to inspection, nondistended, normoactive bowel sounds, soft to palpation and non-tender Extremity no clubbing, cyanosis or edema Extremity Narrative: 2+ pedal pulses, 2+ radial pulses Skin Skin Narrative: Appears pale, lip color is pale, no rashes or lesions noted Neuro moves all extremities and no focal motor deficits Neuro Narrative: Mild generalized weakness noted but no focal deficits Speech: speech normal Psych mental status grossly normal and affect normal Psych Narrative: Very pleasant given current situation, mild anxiety related to illness but appropriate Assessment & Plan Assessment/Plan (1) Lightheadedness: (2) Headache: (3) Constrictive pericarditis: (4) Syncope: QUALIFIERS: Syncope type: unspecified Qualified Code(s): R55 - Syncope and collapse (5) Leukocytosis: (6) Anemia: (7) Rigors: (8) Elevated erythrocyte sedimentation rate: (9) Elevated C-reactive protein (CRP): (10) Transaminitis: PLAN: Plan Lightheadedness with presyncope/headache/leukocytosis -Patient with recent diagnosis of constrictive pericarditis and etiology was unclear - Continue antibiotics as ordered - Markedly elevated sed rate and CRP still -Repeat in a.m. after 48 hours of antibiotics - Blood cultures are pending - Procalcitonin - CT of the chest abdomen pelvis shows small pleural effusions and moderate pericardial effusion however suspect this is overcall as pericardial effusion is small on echocardiogram which is more reliable - Start broad-spectrum antibiotics in the short-term send-if procalcitonin is unremarkable - Autoimmune workup pending - Infectious workup is pending - RF is positive but anti-CCP is still pending -Syncope does not appear to be related to cardiac manifestation as her echo improved Acute normocytic anemia - Etiology is unclear - Iron studies are consistent with anemia secondary to chronic disease - Ferritin is surprisingly not elevated as this would be expected to be due to it being an acute phase reactant - Check haptoglobin - Autoimmune workup as noted - Patient mildly elevated reticulocyte count Transaminitis - Suspect related to the above - Will trend - Continues to remain only mild only elevated Proteinuria/hematuria - UA with persistent proteinuria and occult blood but no RBCs - Will check CK Constrictive pericarditis - Echo appears to be improved with lessening pericardial effusion and decreased septal bounce - Doubt syncope is related to this - Workup for etiology is still in progress - Continue colchicine and ibuprofen - May need to consider steroids depending on the above workup--> 1 g daily - Will plan on starting if infectious etiologies are ruled out GERD - Continue home PPI Obesity - BMI 34.4 - Recommend weight loss - Complicates treatment, prognosis, outcomes DVT prophylaxis - Continue subcu Lovenox CODE STATUS - Full code Charges/Coding Visit Charges Inpatient E&M: 18633 Subs Hosp L2
[2024-10-17] MEDS: Polyethylene Glycol 3350 17 GM PACKET PO (09:42)
[2024-10-17 10:00] VITALS: BP 100/66; PULSE 79; RESP 16; TEMP 36.6; O2SAT 98
--- NOTE | 2024-10-17 11:18 | CASEMGMT ---
ANGEL OLSEN Assessment: Face to Face with pt for initial transition planning/care coordination assessment. ANGEL OLSEN introduced self and role at [facility], pt voices understanding and consents to assessment. Pt is A&O x4 and answers all questions appropriately at this time. Pt lying in bed in no distress. Care providers, pharmacy, and demographics verified/updated. Admitting Dx: syncope with recent acute pericarditis Strata Score: 2 PCP:[facility] Specialists:Karla MERCURY CRACKING TESTER Preferred [facility]acy: [facility] Insurance: [place] Prescription Benefit: yes LNOK: jeremías Redd; Radha Lam, mother Living Arrangements: Pt lives with and son in a bilevel home with 5 steps to enter. Pt reports she is typically indep in all ADL/IADLs and denies concerns at home. Transportation: Pt drives self and denies concerns with transportation. DME:Denies HHC/SNF: Denies hx of Pt states no concerns with going home at time of dc as long as it is determined what is causing her syncope. Currently pt is needing assist of 2 d/t syncope. Pt states no further concerns/needs. CM to follow. Advised pt to ask CM if any further questions/concerns/needs arise, voices understanding. Pt Goal: Home Plan: TBD: Home pending if syncope resolves, if not pt may need DME. Ashok ORTIZ CM Handoff given to LUMP RECEIVER CM
[2024-10-17] MEDS: 0.9% Saline Lock 10 ML Syringe IV ×3 (13:45→21:18)
[2024-10-17] MEDS: Ensure Clear 120 ML Liquid PO ×2 (14:41→18:18)
[2024-10-17 15:00] VITALS: BP 98/64; PULSE 107; PULSE 108; RESP 16; TEMP 36.3; O2SAT 95
--- NOTE | 2024-10-17 15:36 | CHAPLAIN ---
Type of Pastoral Visit _x__ Initial Visit ___ Follow-up Visit ___ On-call Visit ___ General Patient Visit ___ Spiritual Assessment ___ Family Conference ___ Bereavement ___ Rapid Response ___ Code Blue ___ Other (describe below) Pastoral Care Referral From _x__ Patient ___ Family ___ Nurse ___ Physician ___ Automotive Engineer ___ Wireless Team Member ___ Other (describe below) Sacrament/Intervention _x__ Active listening ___ Anointing ___ Mandaeism ___ Bereavement ___ Communion _x__ Vijaya exploration ___ _x__ Life review _x__ Prayer ___ Reconciliation ___ Sacrament of Sick _x__ Supportive presence ___ Wedding ___ Other (describe below) Pastoral Comments patient is very welcoming and expresses her desire to have someone to talk with; pt says that she is getting overwhelmed with what is happening in her body and her family; pt says that she is a Jehovah'S Witness believer but is 'starting to ask the why me God?' question; pt has an autistic son and a with a new hearing loss; pt is also worried about missing work and if I will still have a job; pt reports that she does have a great friend or two that is supportive and that her mother lives close; pt is talkative and goes into family stories and feelings about how the family is functioning; pt has questions about 'why' but also believes that 'somethings just happen to us'; pt says that her spouse takes a different view and that it is hard to share the same opinion; pt welcomes time given to listen and for prayers
[2024-10-17 19:40] VITALS: BP 122/70; PULSE 91; RESP 16; TEMP 36.9; O2SAT 96
[2024-10-18] MEDS: Vancomycin Trough/Random Due 1 LAB MC (03:07)
[2024-10-18 03:10] VITALS: BP 95/70; PULSE 69; RESP 14; TEMP 36.7; O2SAT 100
[2024-10-18 03:20] LABS: Hematocrit 29.1 % (37-47); Hemoglobin 9.1 g/dL (12.0-15.0); Immature Granulocytes Count 0.030 X10^3/uL (0.0-0.0); Mean Corp Hgb Conc 31.3 g/dL (32-36); Mean Corpuscular Volume 85.8 fL (81-99); Mean Platelet Vol. 9.5 fl (6.2-12.0); NRBC Flagged by Analyzer 0 % (0-5); Platelet Count 337 K/mm3 (150-450); RBC Distribution Width CV 16.8 % (11.6-14.6); RBC Distribution Width SD 53.5 fl (35.1-43.9); Red Blood Count 3.39 M/mm3 (4.2-5.4); White Blood Count 10.7 K/mm3 (4.4-11.0)
[2024-10-18 03:35] LABS: AST(SGOT) 83 U/L (<=31); Alanine Aminotransfer ALT/SGPT 133 U/L (<=34); Albumin, Serum 3.0 g/dL (3.5-5.0); Alkaline Phosphatase 225 U/L (35-104); Anion Gap 11 (5-15); BUN 8 mg/dL (4-19); BUN/Creat Ratio 9.7 RATIO (10-20); Calcium,Total 8.6 mg/dL (7.6-11.0); Carbon Dioxide 22.7 mmol/L (21.0-32.0); Chloride 107 mmol/L (98-108); Estimated Creatinine Clearance 119.75 ml/min (50-250); Globulin 3.8 g/dL (2.2-4.2); Glucose 102 mg/dL (70-99); Potassium 4.2 mmol/L (3.3-5.1)
[2024-10-18 03:55] LABS: Vancomycin, Trough Level 11.1 ug/mL (5.0-15.0)
--- NOTE | 2024-10-18 04:46 | PCM.RX.CS ---
Consult Antibiotic Management Pharmacy has been consulted to manage selected antibiotic: Vancomycin Type of Intervention Type of Consult: Follow-up Suspected Infection Suspected Infection: Sepsis Labs Labs: Sodium 140 mmol/L (133-145) 10/18/24 03:05 Potassium 4.2 mmol/L (3.3-5.1) 10/18/24 03:05 Chloride 107 mmol/L (98-108) 10/18/24 03:05 Carbon Dioxide 22.7 mmol/L (21.0-32.0) 10/18/24 03:05 Anion Gap 11 (5-15) 10/18/24 03:05 BUN 8 mg/dL (4-19) 10/18/24 03:05 Creatinine 0.79 mg/dL (0.70-1.20) 10/18/24 03:05 Est GFR (MDRD) Non-Af 98 (>60) 10/18/24 03:05 BUN/Creatinine Ratio 9.7 RATIO (10-20) L 10/18/24 03:05 Glucose 102 mg/dL (70-99) H 10/18/24 03:05 Vancomycin Trough 11.1 ug/mL (5.0-15.0) 10/18/24 03:05 Microbiology Microbiology: Microbiology 10/14/24 15:50 Blood Culture (Wb) - Right Wrist Blood Culture - Preliminary No growth in 48 hours. 10/14/24 15:20 Blood Culture (Wb) - Right Wrist Blood Culture - Preliminary No growth in 48 hours. Estimated Creatinine Clearance Estimated Creatinine Clearance: > 100 Goal Trough Goal Trough: 15-20 mcg/mL Pharmacy Plan for Drug Dosing Pharmacy Plan for Drug Dosing: VANCOMYCIN LEVEL RECEIVED Current Vancomycin Dose: 1500mg Q12H Number of Doses Received: 1500mg x2 Vancomycin Level: 11.1 Hours Since Last Dose: 11.5 Renal Function: sCr 0.79 Renal Function Trend: stable Lab/Micro: pending Vancomycin Plan/Comments: Increase Vancomycin dosing regimen to 2000mg Q12H Pending Level: 10/19/24 @ 16:30 Pharmacy Service will continue to monitor and adjust dosing as required. Follow-Up Labs Follow-Up Labs: Trough: Vancomycin (10/19/24 @ 16:30)
[2024-10-18] MEDS: Vancomycin HCl 2,000 MG in 0.9% Normal Saline (500mL Bag) 500 ML 250 MG IV ×2 (05:04→18:45)
[2024-10-18 07:06] LABS: CPK Total, Creatine Kinase 16 U/L (24-195); CRP 292.00 mg/L (0.0-3.0)
--- NOTE | 2024-10-18 07:14 | PN.HOSP_ITS ---
Reason for Visit Chief Complaint: Syncope Subjective Subjective Blood pressure still low. Patient states she is feeling a bit better overall. White count is normalized. Still waiting for autoimmune workup. Objective Data Objective Data Vital Signs: Vital Signs Temp Pulse Resp BP Pulse Ox O2 Del Method 98.0 F 69 14 95/70 100 Room Air 10/18/24 03:10 10/18/24 03:10 10/18/24 03:10 10/18/24 03:10 10/18/24 03:10 10/18/24 03:12 Oxygen Delivery Method Room Air Weight: 102.5 kg Body Mass Index (BMI) 34.3 Intake & Output: Intake and Output for Last 24 Hours 10/16/24 10/17/24 10/18/24 23:59 23:59 23:59 Intake Total 2390.75 / 3190.75 3644 / 3644 200 / 200 Output Total 600 / 600 1700 / 1700 1000 / 1000 Balance 1790.75 / 2590.75 1944 / 1944 -800 / -800 Lab / Micro Data 10/18/24 03:05 10/18/24 03:05 Labs: Laboratory Results - last 24 hr 10/16/24 17:39: Haptoglobin 393 H 10/18/24 03:05: WBC 10.7, RBC 3.39 L, Hgb 9.1 L, Hct 29.1 L, MCV 85.8, MCH 26.8 L, MCHC 31.3 L, RDW Std Deviation 53.5 H, RDW Coeff of [place] 16.8 H, Plt Count 337, MPV 9.5, Immature Gran % (Auto) 0.300, Neut % (Auto) 67.6, Lymph % (Auto) 19.6, [place] % (Auto) 10.0, Eos % (Auto) 2.3, Baso % (Auto) 0.2, Absolute Neuts (auto) 7.3, Absolute Lymphs (auto) 2.10, Nucleated RBC % 0, ESR Cancelled, Sodium 140, Potassium 4.2, Chloride 107, Carbon Dioxide 22.7, Anion Gap 11, BUN 8, Creatinine 0.79, Estim Creat Clear Calc 119.75, Est GFR (MDRD) Non-Af 98, B UN/Creatinine Ratio 9.7 L, Glucose 102 H, Calcium 8.6, Total Bilirubin 0.28, AST 83 H, ALT 133 H, Alkaline Phosphatase 225 H, Total Creatine Kinase 16 L, C-React Prot Ext Range 292.00 H, Total Protein 6.7, Albumin 3.0 L, Globulin 3.8, A lbumin/Globulin Ratio 0.8 L, Vancomycin Trough 11.1 10/18/24 05:29: ESR 80 H Micro: Microbiology 10/14/24 15:50 Blood Culture (Wb) - Right Wrist Blood Culture - Preliminary No growth in 48 hours. 10/14/24 15:20 Blood Culture (Wb) - Right Wrist Blood Culture - Preliminary No growth in 48 hours. Rhythm Strip Rhythm Strip: Sinus Tach Rate: 100 Ectopy: None Physical Exam Const alert, oriented x3, no apparent distress and well nourished; Negative for average body habitus or healthy appearing Constitutional Narrative: Ill-appearing, obese, middle-aged, white female, lying in bed, appears comfortable at this time General Appearance: cooperative and comfortable HEENT normocephalic, head/scalp atraumatic and moist oral mucous membranes Resp normal respiratory effort, normal air movement, no retractions, no use of accessory muscles and clear to auscultation bilaterally Auscultation: Negative for rales, rhonchi or wheezes Cardio regular rate, regular rhythm, S1 normal heart sound, S2 normal heart sound, no murmurs, no rub, no gallops and no clicks GI normal to inspection, nondistended, normoactive bowel sounds, soft to palpation and non-tender Extremity no clubbing, cyanosis or edema Extremity Narrative: 2+ pedal pulses, 2+ radial pulses Neuro moves all extremities and no focal motor deficits Neuro Narrative: Mild generalized weakness noted but no focal deficits Speech: speech normal Psych mental status grossly normal and affect normal Psych Narrative: Very pleasant given current situation Assessment & Plan Assessment/Plan (1) Lightheadedness: (2) Headache: (3) Constrictive pericarditis: (4) Syncope: QUALIFIERS: Syncope type: unspecified Qualified Code(s): R55 - Syncope and collapse (5) Leukocytosis: (6) Anemia: (7) Rigors: (8) Elevated erythrocyte sedimentation rate: (9) Elevated C-reactive protein (CRP): (10) Transaminitis: PLAN: Plan Lightheadedness with presyncope/headache/leukocytosis -Patient with recent diagnosis of constrictive pericarditis and etiology was unclear - Continue antibiotics as ordered--> white count has normalized - Sed rate and CRP are still elevated however both have trended down - Blood cultures are pending but initial cultures from admission are negative - Procalcitonin was 0.09 - CT of the chest abdomen pelvis shows small pleural effusions and moderate pericardial effusion however suspect this is overcall as pericardial effusion is small on echocardiogram which is more reliable - Autoimmune workup pending - Infectious workup is unremarkable so far - RF is positive but anti-CCP is still pending - Syncope does not appear to be related to cardiac manifestation as her echo improved - 1 g of steroids x 1 dose and reassess tomorrow Acute normocytic anemia - Etiology is unclear - Iron studies are consistent with anemia secondary to chronic disease - Ferritin is surprisingly not elevated as this would be expected to be due to it being an acute phase reactant - Haptoglobin is markedly elevated and suspect this is related to it being an acute phase reactant - Autoimmune workup as noted - Patient mildly elevated reticulocyte count Transaminitis - Suspect related to the above - Will trend - Remains elevated but relatively stable Proteinuria/hematuria - UA with persistent proteinuria and occult blood but no RBCs - CK was within normal limits Constrictive pericarditis - Echo appears to be improved with lessening pericardial effusion and decreased septal bounce - Doubt syncope is related to this - Workup for etiology is still in progress - Continue colchicine and ibuprofen - May need to consider steroids depending on the above workup--> 1 g daily - Cultures are negative thus far so we will give 1 g of IV steroids x 1 dose and check response GERD - Continue home PPI Obesity - BMI 34.4 - Recommend weight loss - Complicates treatment, prognosis, outcomes DVT prophylaxis - Continue subcu Lovenox CODE STATUS - Full code Charges/Coding Visit Charges Inpatient E&M: 16814 Subs Hosp L2
[2024-10-18] MEDS: Piperacil/Tazobactam 3.375 GM in 0.9% Normal Saline (50mL MB+) 50 ML IV ×3 (07:35→22:21)
[2024-10-18 09:10] VITALS: BP 88/54; PULSE 88; RESP 15; TEMP 36.5; O2SAT 98
[2024-10-18 11:10] VITALS: BP 104/69; PULSE 78; RESP 16; TEMP 36.6; O2SAT 98
[2024-10-18] MEDS: MethylPREDNISolone Sod Succ 1,000 MG in 0.9% Normal Saline (100mL Bag) 100 ML 100 MG IV (15:45)
[2024-10-18 17:00] VITALS: BP 108/74; PULSE 74; RESP 15; TEMP 36.7; O2SAT 98
[2024-10-18] MEDS: Ensure Clear 120 ML Liquid PO (18:45)
[2024-10-18 23:00] VITALS: BP 110/69; PULSE 80; RESP 18; TEMP 36.5; O2SAT 94
[2024-10-19] MEDS: 0.9% Saline Lock 10 ML Syringe IV ×2 (03:10→04:55)
[2024-10-19 04:00] VITALS: BP 107/64; PULSE 60; RESP 18; TEMP 36.6; O2SAT 96
[2024-10-19] MEDS: Vancomycin HCl 2,000 MG in 0.9% Normal Saline (500mL Bag) 500 ML 250 MG IV (04:55)
[2024-10-19 07:14] LABS: CRP 203.00 mg/L (0.0-3.0)
[2024-10-19 07:18] LABS: AST(SGOT) 34 U/L (<=31); Alanine Aminotransfer ALT/SGPT 99 U/L (<=34); Albumin, Serum 3.0 g/dL (3.5-5.0); Alkaline Phosphatase 234 U/L (35-104); Anion Gap 12 (5-15); BUN 13 mg/dL (4-19); BUN/Creat Ratio 9.8 RATIO (10-20); Calcium,Total 8.7 mg/dL (7.6-11.0); Carbon Dioxide 21.2 mmol/L (21.0-32.0); Chloride 106 mmol/L (98-108); Estimated Creatinine Clearance 71.67 ml/min (50-250); Globulin 3.8 g/dL (2.2-4.2); Glucose 197 mg/dL (70-99); Potassium 3.5 mmol/L (3.3-5.1)
[2024-10-19 07:25] LABS: Hematocrit 27.6 % (37-47); Hemoglobin 8.8 g/dL (12.0-15.0); Immature Granulocytes Count 0.050 X10^3/uL (0.0-0.0); Mean Corp Hgb Conc 31.9 g/dL (32-36); Mean Corpuscular Volume 84.1 fL (81-99); Mean Platelet Vol. 9.8 fl (6.2-12.0); NRBC Flagged by Analyzer 0 % (0-5); POSITIVE MORPHOLOGY YES; Platelet Count 405 K/mm3 (150-450); RBC Distribution Width CV 16.5 % (11.6-14.6); RBC Distribution Width SD 50.8 fl (35.1-43.9); Red Blood Count 3.28 M/mm3 (4.2-5.4); White Blood Count 9.1 K/mm3 (4.4-11.0)
[2024-10-19 07:30] LABS: Differential Indicated SCAN CRITERIA MET
[2024-10-19] MEDS: Piperacil/Tazobactam 3.375 GM in 0.9% Normal Saline (50mL MB+) 50 ML IV (07:31)
[2024-10-19 09:10] VITALS: BP 106/74; PULSE 74; RESP 16; TEMP 36.6; O2SAT 97
--- NOTE | 2024-10-19 10:28 | PN.HOSP_ITS ---
Reason for Visit Chief Complaint: Syncope Subjective Subjective Patient states she has not been up yet but thinks she is feeling a little bit better overall today. She then did get up with nursing and they notified me that she was not lightheaded at all and moved around the room quite well. She did use a walker as she was little bit nervous but did not require it to ambulate. Objective Data Objective Data Vital Signs: Vital Signs Temp Pulse Resp BP Pulse Ox O2 Del Method 97.9 F 74 16 106/74 97 Room Air 10/19/24 09:10 10/19/24 09:10 10/19/24 09:10 10/19/24 09:10 10/19/24 09:10 10/19/24 09:11 Oxygen Delivery Method Room Air Weight: 102.5 kg Body Mass Index (BMI) 34.3 Intake & Output: Intake and Output for Last 24 Hours 10/17/24 10/18/24 10/19/24 23:59 23:59 23:59 Intake Total 3644 / 3644 2403.5 / 2403.5 583.13 / 583.13 Output Total 1700 / 1700 2400 / 2900 900 / 900 Balance 1944 / 1944 3.5 / -496.5 -316.87 / -316.87 Lab / Micro Data 10/19/24 06:15 10/19/24 06:15 Labs: Laboratory Results - last 24 hr 10/19/24 06:15: WBC 9.1, RBC 3.28 L, Hgb 8.8 L, Hct 27.6 L, MCV 84.1, MCH 26.8 L , MCHC 31.9 L, RDW Std Deviation 50.8 H, RDW Coeff of Fallon 16.5 H, Plt Count 405, MPV 9.8, Immature Gran % (Auto) 0.500, Neut % (Auto) 90.7 H, Lymph % (Auto) 8.3 L, Stokes % (Auto) 0.5, Eos % (Auto) 0.0, Baso % (Auto) 0.0, Absolute Neuts (auto) 8.3 H, Absolute Lymphs (auto) 0.76 L, Nucleated RBC % 0, ESR 96 H, Sodium 139, Potassium 3.5, Chloride 106, Carbon Dioxide 21.2, Anion Gap 12, BUN 13, C reatinine 1.32 H, Estim Creat Clear Calc 71.67, Est GFR (MDRD) Non-Af 53 L, B UN/Creatinine Ratio 9.8 L, Glucose 197 H, Calcium 8.7, Total Bilirubin 0.17, AST 34 H, ALT 99 H, Alkaline Phosphatase 234 H, C-React Prot Ext Range 203.00 H, Total Protein 6.7, Albumin 3.0 L, Globulin 3.8, Albumin/Globulin Ratio 0.8 L Micro: Microbiology 10/14/24 15:50 Blood Culture (Wb) - Right Wrist Blood Culture - Preliminary No growth in 48 hours. 10/14/24 15:20 Blood Culture (Wb) - Right Wrist Blood Culture - Preliminary No growth in 48 hours. Rhythm Strip Rhythm Strip: Sinus Tach Rate: 100 Ectopy: None Physical Exam Const alert, oriented x3, no apparent distress and well nourished; Negative for average body habitus or healthy appearing Constitutional Narrative: Ill-appearing, obese, middle-aged, white female, sitting up in in bed, appears comfortable at this time General Appearance: cooperative and comfortable HEENT normocephalic, head/scalp atraumatic and moist oral mucous membranes HEENT Narrative: No thrush Resp normal respiratory effort, normal air movement, no retractions, no use of accessory muscles and clear to auscultation bilaterally Auscultation: Negative for rales, rhonchi or wheezes Cardio regular rate, regular rhythm, S1 normal heart sound, S2 normal heart sound, no murmurs, no rub, no gallops and no clicks GI normal to inspection, nondistended, normoactive bowel sounds, soft to palpation and non-tender Extremity no clubbing, cyanosis or edema Extremity Narrative: 2+ pedal pulses, 2+ radial pulses Skin Skin Narrative: Appears pale, lip color is pale, no rashes or lesions noted Neuro moves all extremities and no focal motor deficits Neuro Narrative: Mild generalized weakness noted but no focal deficits Speech: speech normal Psych mental status grossly normal and affect normal Psych Narrative: Very pleasant given current situation Mood & Affect: anxious Assessment & Plan Assessment/Plan (1) Lightheadedness: (2) Headache: (3) Constrictive pericarditis: (4) Syncope: QUALIFIERS: Syncope type: unspecified Qualified Code(s): R55 - Syncope and collapse (5) Leukocytosis: (6) Anemia: (7) Rigors: (8) Elevated erythrocyte sedimentation rate: (9) Elevated C-reactive protein (CRP): (10) Transaminitis: PLAN: Plan Lightheadedness with presyncope/headache/leukocytosis -Patient with recent diagnosis of constrictive pericarditis and etiology was unclear -Infectious workup thus far is unremarkable and highly suspect this may be autoimmune -CRP is trending down -Blood cultures are unremarkable - Procalcitonin was 0.09 -Autoimmune workup remains pending in its entirety but RF was positive mildly -Anti-CCP is pending - Infectious workup is unremarkable so far--> viral and Lyme titer still pending -Patient was given 1 g of IV steroids with Solu-Medrol on the and I will dose another today and then give for 0.5 mg/kg of body weight tomorrow which is recommended for refractory autoimmune related pericarditis with outpatient follow-up - Today was the first time we were able to get her out of bed and have her not be lightheaded Acute normocytic anemia - Etiology is unclear - Iron studies are consistent with anemia secondary to chronic disease - Haptoglobin is markedly elevated and suspect this is related to it being an acute phase reactant - Autoimmune workup pending Transaminitis -Trended down with steroids given yesterday - May have an autoimmune component Proteinuria/hematuria - UA with persistent proteinuria and occult blood but no RBCs - CK was within normal limits - may be related to autoimmune process Elevated serum creatinine - 1.32 today which is consistent with SHADE for her etiology is unclear - Will give 1 L of IV fluids and recheck tomorrow if continues to rise this could be a manifestation of an autoimmune process as well and may need further workup Constrictive pericarditis - Echo appears to be improved with lessening pericardial effusion and decreased septal bounce - Doubt syncope is related to this - Workup for etiology is still in progress - Continue colchicine and ibuprofen -Prednisone 1 g given yesterday and today will transition to 50 mg daily with plans to discharge on 50 mg and outpatient follow-up with cardiology on 10/21/2024 if patient continues to do well over the next 24 hours GERD - Continue home PPI Obesity - BMI 34.4 - Recommend weight loss - Complicates treatment, prognosis, outcomes DVT prophylaxis - Continue subcu Lovenox CODE STATUS - Full code Charges/Coding Visit Charges Inpatient E&M: 66140 Subs Hosp L2
[2024-10-19] MEDS: Lactated Ringers 1,000 ML 125 ML IV (12:01)
[2024-10-19] MEDS: MethylPREDNISolone Sod Succ 1,000 MG in 0.9% Normal Saline (100mL Bag) 100 ML 100 MG IV (12:10)
[2024-10-19 14:08] LABS: Lyme Scn Total Ab w/Rflx Negative (Negative)
[2024-10-19 15:10] VITALS: BP 104/60; PULSE 97; RESP 17; TEMP 36.5; O2SAT 95
[2024-10-19] MEDS: Ensure Clear 120 ML Liquid PO (15:20)
[2024-10-19 20:08] LABS: Cytoplasmic Ab (C-ANCA) <1:20 titer (Neg:<1:20); Perinuclear Ab (P-ANCA) <1:20 titer (Neg:<1:20)
[2024-10-19 20:39] VITALS: BP 110/64; PULSE 71; RESP 16; TEMP 36.5; O2SAT 97
[2024-10-20 02:45] VITALS: BP 103/64; PULSE 64; RESP 16; TEMP 36.5; O2SAT 97
[2024-10-20 05:40] LABS: Hematocrit 25.5 % (37-47); Hemoglobin 8.0 g/dL (12.0-15.0); Immature Granulocytes Count 0.100 X10^3/uL (0.0-0.0); Mean Corp Hgb Conc 31.4 g/dL (32-36); Mean Corpuscular Volume 83.9 fL (81-99); Mean Platelet Vol. 9.7 fl (6.2-12.0); NRBC Flagged by Analyzer 0 % (0-5); Platelet Count 386 K/mm3 (150-450); RBC Distribution Width CV 16.5 % (11.6-14.6); RBC Distribution Width SD 51.3 fl (35.1-43.9); Red Blood Count 3.04 M/mm3 (4.2-5.4); White Blood Count 17.9 K/mm3 (4.4-11.0)
[2024-10-20 06:07] LABS: AST(SGOT) 30 U/L (<=31); Alanine Aminotransfer ALT/SGPT 85 U/L (<=34); Albumin, Serum 2.9 g/dL (3.5-5.0); Alkaline Phosphatase 198 U/L (35-104); Anion Gap 11 (5-15); BUN 18 mg/dL (4-19); BUN/Creat Ratio 12.7 RATIO (10-20); Calcium,Total 8.4 mg/dL (7.6-11.0); Carbon Dioxide 22.3 mmol/L (21.0-32.0); Chloride 110 mmol/L (98-108); Estimated Creatinine Clearance 66.62 ml/min (50-250); Globulin 3.4 g/dL (2.2-4.2); Glucose 145 mg/dL (70-99); Potassium 3.5 mmol/L (3.3-5.1)
[2024-10-20 08:14] VITALS: BP 110/68; PULSE 70; RESP 18; TEMP 36.9; O2SAT 96
[2024-10-20 11:00] VITALS: PULSE 68
--- NOTE | 2024-10-20 12:00 | DS.PCM_ITS ---
Providers Date of Admission: 10/16/24 Date of Discharge: 10/20/24 Primary Care Physician: Dr. 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 (4) Syncope: Status: Acute Code(s): R55 - Syncope and collapse Qualifiers: Syncope type: unspecified Qualified Code(s): R55 - Syncope and collapse (5) Leukocytosis: Status: Acute Code(s): D72.829 - Elevated white blood cell count, unspecified (6) Anemia: Status: Acute Code(s): D64.9 - Anemia, unspecified (7) Rigors: Status: Acute Code(s): R68.89 - Other general symptoms and signs (8) Elevated erythrocyte sedimentation rate: Status: Acute Code(s): R70.0 - Elevated erythrocyte sedimentation rate (9) Elevated C-reactive protein (CRP): Status: Acute Code(s): R79.82 - Elevated C-reactive protein (CRP) (10) Transaminitis: Status: Acute Code(s): R74.01 - Elevation of levels of liver transaminase levels Medications at Discharge Home Medications hydroxyzine HCl 10 mg tablet 10 - 20 mg PO TID PRN PRN anxiety 05/16/24 srldmczk-fue-eyvs-FA-Ca carb-vit K 18 mg iron-400 mcg-500 mg tablet 2 tab PO DAILY 05/22/24 sertraline 100 mg tablet 100 mg PO DAILY 10/06/24 colchicine 0.6 mg tablet 0.6 mg PO BID 10/14/24 ibuprofen 600 mg tablet 600 mg PO TID 10/14/24 ondansetron 4 mg disintegrating tablet 4 mg PO Q6H PRN PRN nausea/vomiting 10/14/24 pantoprazole 40 mg tablet,delayed release 40 mg PO DAILY 10/14/24 prednisone 10 mg tablet 50 mg (5 x 10 mg) PO BREAKFAST #20 tabs 10/20/24 Hospital Course Summary of Care Provided Minutes Spent on Discharge: 35 Hospital Course: Patient is a 39-year-old lady with recent diagnosis of constrictive pericarditis discharged from [facility] following transfer from [facility] presented to the emergency department with recurrent syncopal episode. Patient was found to have markedly elevated CRP and ESR. 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 Recurrent syncopal episode ? Thought to be related to constrictive autoimmune pericarditis. Patient has apparently undergone infectious workup at [facility] with no identifiable source found. Patient was managed with high-dose steroids as documented above 2. Anemia ? Secondary to chronic disorder monitoring H&H and transfuse if patient becomes symptomatic or hemoglobin falls below 7 3. Transient transaminitis ? Improved with observation 4. Acute kidney injury ? Patient managed with IV fluids with avoidance of potential nephrotoxic medication plans for patient to follow-up with primary care physician within a week for repeat BMP to be drawn Physical Exam Narrative GENERAL: cooperative HEENT: Atraumatic; normocephalic EYES; Anicteric, Normal Conjunctiva NECK; supple, normal thyroid, RESPIRATORY: Diminished to auscultation CARDIOVASCULAR: Regular S1 S2, GI: soft, normoactive bowel sounds, : No Renal angle tenderness; EXTREMITIES: No edema, no clubbing, MUSCULOSKELETAL: no muscle wasting NEURO: Awake; no lateralizing signs. SKIN: No Rash PSYCH; Flat affect Weight / BMI Weight Weight: 102.5 kg Body Mass Index (BMI) 34.3 ABG / Lab / Microbiology Data 10/20/24 04:57 10/20/24 04:57 Laboratory: Laboratory Results - last 24 hr 10/16/24 17:39: c-ANCA Antibody <1:20, Atypical p-ANCA <1:20, p-ANCA Antibody <1:20, Lyme Total Antibody Negative 10/20/24 04:57: WBC 17.9 H, RBC 3.04 L, Hgb 8.0 L, Hct 25.5 L, MCV 83.9, MCH 26.3 L, MCHC 31.4 L, RDW Std Deviation 51.3 H, RDW Coeff of Fallon 16.5 H, Plt Count 386, MPV 9.7, Immature Gran % (Auto) 0.600, Neut % (Auto) 90.3 H, Lymph % (Auto) 5.7 L, Hale % (Auto) 3.3, Eos % (Auto) 0.0, Baso % (Auto) 0.1, Absolute Neuts (auto) 16.2 H, Absolute Lymphs (auto) 1.03, Nucleated RBC % 0, Sodium 144, Potassium 3.5, Chloride 110 H, Carbon Dioxide 22.3, Anion Gap 11, BUN 18, C reatinine 1.42 H, Estim Creat Clear Calc 66.62, Est GFR (MDRD) Non-Af 48 L, BUN/Creatinine Ratio 12.7, Glucose 145 H, Calcium 8.4, Total Bilirubin 0.17, AST 30, ALT 85 H, Alkaline Phosphatase 198 H, Total Protein 6.4, Albumin 2.9 L, Globulin 3.4, Albumin/Globulin Ratio 0.9 Microbiology: Microbiology 10/14/24 15:20 Blood Culture (Wb) - Right Wrist Blood Culture - Final No growth in 5 days. 10/14/24 15:50 Blood Culture (Wb) - Right Wrist Blood Culture - Final No growth in 5 days. D/C Instructions Discharge Activity: Return to Normal Activity Call your doctor if you observe: Fever of 101 or Higher, Shortness of breath, Fainting spells and Chest pain DC O2, CPAP, BIPAP Needs Home O2 Discharge instructions: No Meaningful Use Info Meaningful Use Meaningful Use Diagnoses (Choose all that apply): None applicable Discharge Plan Admission Admit Date/Time: 10/16/24 16:30 Attending Provider: Nikos Pederson Primary Care Provider: Flor Grimm Consulting Providers: Chong Thompson; Robby Thompson; Galileo Kim; Jennifer Richter Instructions Additional Instructions / Restrictions: 1. Follow-up with Dr. Gill at [facility] as scheduled on 10/21/2024 Discharge Orders/Prescriptions Prescriptions: New prednisone 10 mg Tablet 50 mg PO BREAKFAST Qty: 20 0RF Continued pantoprazole 40 mg tablet,delayed release (DR/EC) 40 mg PO DAILY ibuprofen 600 mg tablet 600 mg PO TID colchicine 0.6 mg tablet 0.6 mg PO BID ondansetron 4 mg tablet,disintegrating 4 mg PO Q6H PRN PRN (Reason: nausea/vomiting) hydroxyzine HCl 10 mg tablet 10 - 20 mg PO TID PRN PRN (Reason: anxiety) xl-ug-hffe-FA-Ca carb-vit K 18 mg iron-400 mcg-500 mg tablet 2 tab PO DAILY sertraline 100 mg tablet 100 mg PO DAILY Referrals / Follow Up: Flor Grimm MD [Primary Care Provider] - In 1 Week Disposition Disposition (needs filled in before D/C Order can be placed): Home, Self Care Charges/Coding Visit Charges Inpatient E&M: 61999 Disch Hosp >30min
[2024-10-20 12:05] VITALS: BP 119/67; PULSE 73; RESP 18; TEMP 36.4; O2SAT 95
--- NOTE | 2024-10-20 12:19 | CASEMGMT ---
Addendum entered by Galdino Moise 10/20/24 12:36: Pt also states that she plans to follow up with her aerospace medicine physician as an OP tomorrow. Original Note: Pt has an order for DC placed. ANGEL CM to the pt room at this time. Pt states that she feels safe returning home with family as her dizziness has improved. Pt states that she has not needed a walker. Pt states that her main concern at this time is a work excuse. Pt states that she has already talked to Dr Pederson about this who is working on this. Pt denies any additional needs including HH or OP Tx. Pt denies further needs from this RN CM at this time.
[2024-10-20 15:08] LABS: Complement CH50 58 U/mL (>41)
[2024-10-20 16:08] LABS: ANTINUCLEAR ANTIBODIES DIRECT Negative (Negative); Anti-Chromatin <0.2 AI (0.0-0.9); Anti-Jo <0.2 AI (0.0-0.9); Anti-dsDNA Ab 1 IU/mL (0-9); SJOGREN'S Anti-SS-A test 0.2 AI (0.0-0.9); SJOGREN'S Anti-SS-B test < 0.2 AI (0.0-0.9)
[2024-10-22 15:08] LABS: Coxsackie A Type 16 IgG 1:400 titer (Neg:<1:100); Coxsackie A Type 16 IgM Negative titer (Neg:<1:10); Coxsackie A Type 24 IgG 1:400 titer (Neg:<1:100); Coxsackie A Type 24 IgM Negative titer (Neg:<1:10); Coxsackie A Type 7 IgG 1:400 titer (Neg:<1:100); Coxsackie A Type 7 IgM Negative titer (Neg:<1:10); Coxsackie A Type 9 IgG 1:400 titer (Neg:<1:100); Coxsackie A Type 9 IgM Negative titer (Neg:<1:10)
== END 2024-10-20 15:31 | disposition home or self-care (01) | DRG 312 ==
LOC: ED 12:47 → PCU 10-15 07:26
PROVIDERS: Internal Medicine; Admitting Provider Hospitalist; Emergency Provider Emergency Medicine; PCP Internal Medicine; Visit Provider Internal Medicine
DX: R55 Syncope and collapse (principal); I31.1 Chronic constrictive pericarditis; N17.9 Acute kidney failure, unspecified; D63.8 Anemia in other chronic diseases classified elsewhere; F32.A Depression, unspecified; E66.811 Obesity, class 1; E86.0 Dehydration; E86.1 Hypovolemia; D72.829 Elevated white blood cell count, unspecified; K21.9 Gastro-esophageal reflux disease without esophagitis; F41.9 Anxiety disorder, unspecified; R80.9 Proteinuria, unspecified; R74.01 Elevation of levels of liver transaminase levels; Z68.34 Body mass index [BMI] 34.0-34.9, adult; Z79.899 Other long term (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 therapy; R51.9 Headache, unspecified; R42 Dizziness and giddiness; R79.82 Elevated C-reactive protein (CRP); R70.0 Elevated erythrocyte sedimentation rate; R31.9 Hematuria, unspecified; R68.89 Other general symptoms and signs
CPT/HCPCS: 36415; 70450; 71045; 71275; 74174; 80053; 80202; 81001; 82550; 82728; 83010; 83540; 83550; 83735; 84100; 84145; 84484; 85025; 85045; 85652; 86037; 86038; 86140; 86160; 86162; 86200; 86225; 86235; 86431; 86618; 86658; 87040; 93005; 93308; 94668; 97110; 97116; 97162; 97166; 97530; 97535; 97802; 97803; 99252; 99285; Q9967; A4216; G0463; J2405; J2919